=== PATIENT | male | born 1955 | race Caucasian/White ===

== ENCOUNTER 2020-05-31 21:33 | Inpatient (IN) | payer OTHER, SELFPAY ==
--- NOTE | 2020-05-31 21:46 | ECG_ITS ---
Test Reason : TACHYCARDIA Blood Pressure : / mmHG Vent. Rate : 152 BPM Atrial Rate : 152 BPM P-R Int : 122 ms QRS Dur : 078 ms QT Int : 262 ms P-R-T Axes : 085 -74 053 degrees QTc Int : 416 ms Sinus tachycardia with Premature atrial complexes Left axis deviation RSR' or QR pattern in V1 suggests right ventricular conduction delay Pulmonary disease pattern Abnormal ECG When compared with ECG of 04-MAR-2020 01:18, Premature atrial complexes are now Present Heart rate has increased Referred By: José Dupont Electronically Signed By:IMER FLORES MD
--- NOTE | 2020-05-31 21:46 | XR_ITS ---
EXAMINATION: XR CHEST CLINICAL INFORMATION: Shortness of breath COMPARISON: Multiple prior studies. Most recent Chest x-ray 03/04/2020. CT chest 03/21/2020 TECHNIQUE: Frontal view of the chest was obtained. 10:22 PM FINDINGS: Stable chronic changes. Volume loss and scarring of the upper lobes, right greater than left, with elevation of the payal bilateral. The confluent opacity in the right upper lobe and the bullous changes of right lung apex remain similar to prior exam. No acute infiltrate. No pneumothorax or pleural effusion. IMPRESSION: No change since prior CT exam 03/21/2020. Stable chronic changes mostly affecting the upper lobes, right greater than left.
[2020-05-31 21:55] VITALS: BP 122/80; PULSE 149; RESP 20; TEMP 37.4; O2SAT 97; BMI 22.3
--- NOTE | 2020-05-31 21:59 | ED.SOB ---
HPI - SOB/Dyspnea General Chief Complaint: Dyspnea Stated Complaint: DIFF BREATHING Time Seen by Provider: 05/31/20 21:56 Source: patient Mode of arrival: ambulatory History of Present Illness HPI Narrative: patient states for 1-2 days has been experiencing shortness of breath. Denies chest pain. Denies dizziness. Denies near-syncope. Patient states had home took some albuterol inhaler however no relief. Denies fevers or chills. Denies nausea vomiting or diarrhea MD elicited complaint: shortness of breath Pertinent past history: COPD Onset (ago): day(s) (1) Known history of: COPD Related Data Home Medications Medication Instructions Recorded Confirmed albuterol sulfate 1 amp INHALATION QID PRN 06/01/20 06/01/20 aspirin 1 tab PO DAILY 06/01/20 06/01/20 atorvastatin 1 tab PO DAILY 06/01/20 06/01/20 ipratropium bromide [Atrovent HFA] 2 puff PO QID 06/01/20 06/01/20 ipratropium-albuterol 1 amp INHALATION QID 06/01/20 06/01/20 montelukast 1 tab PO BEDTIME 06/01/20 06/01/20 sildenafil [Viagra] 0.5 - 1 tab PO DAILY PRN 06/01/20 06/01/20 Allergies Allergy/AdvReac Type Severity Reaction Status Date / Time morphine [MORPHINE] Allergy Mild VOMITING Unverified 05/09/20 16:06 Review of Systems Constitutional: Comments: Constitutional : No Fever, No Chills ENT/Mouth : No sore throat, No Rhinorrhea, No Swallowing Difficulty Eyes: No Eye Pain, No Swelling, No Redness Cardiovascular : No Chest Pain, positive SOB, No Orthopnea, positive Edema Respiratory : No Cough, No Sputum, No Wheezing, positive dyspnea Gastrointestinal : No Nausea, No Vomiting, No Diarrhea, No abdominal Pain, No Hematochezia, No Melena Genitourinary : No Dysuria, No Urinary Frequency, No Hematuria Musculoskeletal : No joint pain, No Myalgias Skin : No Skin Lesions, No rash Neuro : No Weakness, No Numbness, No Dizziness, No Headache Psych : No Anxiety/Panic, No Depression Heme/Lymph: No Bruising, No Lymphadenopathy Endocrine : No Polyuria, No Polydipsia PMFSH Past Medical History Medical History Asthma COPD (chronic obstructive pulmonary disease) Family History Family History (Updated 05/31/20 @ 22:01 by José Dupont DO) Other Family history non-contributory Social History Social History Advance Directives: No Advance Directives Information Provided: Yes Physical Exam Vital Signs and I&O and Narrative: Vital Signs and I&O: Vital Signs Temp 98.0 F 06/01/20 03:04 Pulse 104 H 06/01/20 03:04 Resp 18 06/01/20 03:04 BP 88/53 L 06/01/20 03:04 Pulse Ox 99 06/01/20 03:04 Intake & Output 05/31/20 05/31/20 06/01/20 06:59 18:59 06:59 Intake Total 4653.61 / 4653.61 Balance 4653.61 / 4653.61 Weight 46.755 kg Intake: Intake, IV Amoun t 4653.61 / 4653.61 levoFLOXacin/D 5W 750 mg In 150 150 / 150 ml @ 100 mls/h r IV ONCE ONE Rx# :[id number] methylPREDNISo lone Sod Succ/PF 100.96 / 100.96 60 mg In 0.9 % Sodium Chloride 100 ml @ 100 m ls/hr IV ONCE ONE Rx#:[id number] 0.9 % Sodium C hloride 1,000 ml 4402.65 / 4402.65 @ 999 mls/hr I VCONT .Q1H1M REPLACED BY [facility] Rx#:[id number] Body Mass Index 22.3 vital signs reviewed Const: Other: Appearance: Alert. Oriented X3. No acute distress. Eyes: Pupils equal, round and reactive to light. ENT: Pharynx normal. Neck: Normal inspection. Neck supple. No lymph nodes noted. No crepitus CVS: Normal heart rate and rhythm. Pulses normal. Normal S1 and S2 Respiratory: moderate respiratory distress. Breath sounds normal. moderate bilateral Wheezing. No rales Abdomen: Soft and nontender. No rigidity. No distention. good BS x4 Skin: Skin warm and dry. Normal skin color. Normal skin turgor. Extremities: No lower extremity edema. Neurovascular intact to all extremities. No Lacerations. No Rash Neuro: Oriented X 3. No motor deficit. No sensory deficit. Moving all extermities. No slurred speech. Course Course Course Narrative: multiple re-evaluations were done while the patient has been in the emergency department. Patient very thin and cachectic appearing started with low blood pressure. At this point patient's blood pressure continued to drop and which was responded to IV fluids. After about 3 L of IV fluid his blood pressure maintained however then dropped again in which decision made to put a central line and start him on IV pressors. 0400 at 04:00 patient at 04:00 I spoke with ICU strip machine operator Dr. Cuellar will admit patient to ICU Procedures Central Line Placement Right IJ: Time Out Performed: Yes Patient Placed on Monitor/Pulse Ox: Yes MD Prep: mask, gown and gloves Central Line Prep: Chlorhexidine scrub Local Anesthetic: lidocaine 2% Amount of anesthesia used (mL): 3 Ultrasound Used for Placement: Yes Central Line Lumen Inserted: triple Post Procedure: sutured in place, good blood return, all ports aspirated, flushed, capped and sterile dressing applied Post Procedure X-Ray: tip of catheter in good position Patient Tolerated Procedure: well Complications: none MDM - SOB/Dyspnea MDM Narrative Medical decision making narrative: 65-year-old male admitted with hypoxia hypertension sepsis and pneumonia right lower lobe. Placed on a IV antibiotics IV fluids and IV pressors Lab Data Result diagrams: 05/31/20 21:49 05/31/20 21:49 Labs: Lab Results 05/31/20 05/31/20 05/31/20 Range/Units 21:49 21:49 21:49 WBC 16.8 H (4.8-10.8) X10*3/uL RBC 4.45 L (4.60-5.80) X10*6/uL Hgb 13.0 L (14.0-18.0) g/dl Hct 40.0 L (42-52) % MCV 89.9 (80-98) fL MCH 29.2 (27.0-33.0) pg MCHC 32.5 (31.0-36.0) g/dl RDW 15.6 (11.0-16.0) % Plt Count 462 H (160-400) X10*3/uL MPV 9.0 L (9.4-12.4) fL Immature Gran % (Auto) 0.2 (0.0-0.4) % Neut % (Auto) 90.9 H (45-73) % Lymph % (Auto) 3.4 L (20-40) % Greenlee % (Auto) 5.0 (2-11) % Eos % (Auto) 0.2 (0-4) % Baso % (Auto) 0.3 (0-2) % Lymph # (Auto) 0.6 L (1.2-4.9) X10*3/uL Greenlee # (Auto) 0.9 (0.1-1.2) X10*3/uL Eos # (Auto) 0.0 (0.0-0.4) X10*3/uL Baso # (Auto) 0.1 (0.0-0.2) X10*3/uL Abs Immat Gran (auto) 0.04 H (0.00-0.03) X10*3/uL Absolute Neuts (auto) 15.3 H (2.0-8.3) X10*3/uL Absolute Nucleated RBC 0.000 (0.0-0.012) X10*3/uL Nucleated RBC % (auto) 0.0 (0.0-0.2) /100WBC Smear Tech's Comments VERIFIED Hold Blue Top SEE NOTE Sodium 128 L (135-145) mmol/L Potassium 4.7 (3.3-5.1) mmol/l Chloride 87 L (96-108) mmol/L Carbon Dioxide 31 H (22-29) mmol/L Anion Gap 15 (12-20) BUN 8 L (9-16) mg/dL Creatinine 0.70 (0.5-1.4) mg/dL Estim Creat Clear Calc 63.2 Estimated GFR > 60 Random Glucose 148 H (60-115) mg/dL Lactic Acid (0.5-2.0) mmol/L Calcium 8.8 (8.4-10.2) mg/dL Total Bilirubin 0.3 (0.0-1.0) mg/dL Direct Bilirubin 0.2 (0.0-0.5) mg/dL AST 20 (5-37) U/L ALT 10 (0-40) U/L Alkaline Phosphatase 114 (39-117) U/L Troponin I High Sens (<3.5-35.0) ng/L B-Natriuretic Peptide (<100) pg/mL Total Protein 7.9 (6.5-8.0) g/dL Albumin 3.8 (3.5-5.0) g/dL Lipase 10 (8-78) U/L 05/31/20 05/31/20 Range/Units 21:49 22:04 WBC (4.8-10.8) X10*3/uL RBC (4.60-5.80) X10*6/uL Hgb (14.0-18.0) g/dl Hct (42-52) % MCV (80-98) fL MCH (27.0-33.0) pg MCHC (31.0-36.0) g/dl RDW (11.0-16.0) % Plt Count (160-400) X10*3/uL MPV (9.4-12.4) fL Immature Gran % (Auto) (0.0-0.4) % Neut % (Auto) (45-73) % Lymph % (Auto) (20-40) % Greenlee % (Auto) (2-11) % Eos % (Auto) (0-4) % Baso % (Auto) (0-2) % Lymph # (Auto) (1.2-4.9) X10*3/uL Greenlee # (Auto) (0.1-1.2) X10*3/uL Eos # (Auto) (0.0-0.4) X10*3/uL Baso # (Auto) (0.0-0.2) X10*3/uL Abs Immat Gran (auto) (0.00-0.03) X10*3/uL Absolute Neuts (auto) (2.0-8.3) X10*3/uL Absolute Nucleated RBC (0.0-0.012) X10*3/uL Nucleated RBC % (auto) (0.0-0.2) /100WBC Smear Tech's Comments Hold Blue Top Sodium (135-145) mmol/L Potassium (3.3-5.1) mmol/l Chloride (96-108) mmol/L Carbon Dioxide (22-29) mmol/L Anion Gap (12-20) BUN (9-16) mg/dL Creatinine (0.5-1.4) mg/dL Estim Creat Clear Calc Estimated GFR Random Glucose (60-115) mg/dL Lactic Acid 0.9 (0.5-2.0) mmol/L Calcium (8.4-10.2) mg/dL Total Bilirubin (0.0-1.0) mg/dL Direct Bilirubin (0.0-0.5) mg/dL AST (5-37) U/L ALT (0-40) U/L Alkaline Phosphatase (39-117) U/L Troponin I High Sens < 3.5 (<3.5-35.0) ng/L B-Natriuretic Peptide 33 (<100) pg/mL Total Protein (6.5-8.0) g/dL Albumin (3.5-5.0) g/dL Lipase (8-78) U/L ECG Data Attestation: I personally reviewed and interpreted this ECG as follows: Interpretation: 152 beats per minute sinus tachycardia right-sided axis. Normal ST- T segments Critical Care Time Critical Care Time Critical Care Time: Yes Total Critical Care Time: 40 Attestation: I would estimate critical time Discharge Plan Discharge Clinical Impression: Sepsis associated hypotension, COPD exacerbation Pneumonia Qualifiers: Pneumonia type: due to unspecified organism Laterality: right Lung location: lower lobe of lung Qualified Code(s): J18.9 - Pneumonia, unspecified organism Patient Disposition: Admitted As Inpatient
[2020-05-31 22:02] LABS: Basophils Absolute Auto 0.1 X10*3/uL (0.0-0.2); Basophils Percent Auto 0.3 % (0-2); Eosinophils Percent Auto 0.2 % (0-4); Imm Gran Abs Auto 0.04 X10*3/uL (0.00-0.03); Imm Gran Pct Auto 0.2 % (0.0-0.4); Lymphocytes Absolute Auto 0.6 X10*3/uL (1.2-4.9); Lymphocytes Percent Auto 3.4 % (20-40); MANUAL DIFF FLAG SCAN; Mean Corpuscular HGB Conc 32.5 g/dl (31.0-36.0); Mean Corpuscular Hemoglobin 29.2 pg (27.0-33.0); Mean Corpuscular Volume 89.9 fL (80-98); Monocytes Absolute Auto 0.9 X10*3/uL (0.1-1.2); Neutrophils Absolute Auto 15.3 X10*3/uL (2.0-8.3); Neutrophils Percent Auto 90.9 % (45-73); Platelet Count 462 X10*3/uL (160-400); Red Blood Count 4.45 X10*6/uL (4.60-5.80); Red Cell Distribution Width 15.6 % (11.0-16.0); SCAN SMEAR FLAG 1; White Blood Count 16.8 X10*3/uL (4.8-10.8)
[2020-05-31] MEDS: Albuterol Sulfate (0.083%) 2.5 MG/3 ML VIAL.NEB 10 MG INHALE (22:06)
[2020-05-31 22:35] LABS: Alanine Aminotransferase 10 U/L (0-40); Albumin Level 3.8 g/dL (3.5-5.0); Alkaline Phosphatase 114 U/L (39-117); Anion Gap 15 (12-20); Aspartate Amino Transferase 20 U/L (5-37); Bilirubin Direct 0.2 mg/dL (0.0-0.5); Bilirubin Total 0.3 mg/dL (0.0-1.0); Blood Urea Nitrogen 8 mg/dL (9-16); Calcium 8.8 mg/dL (8.4-10.2); Carbon Dioxide 31 mmol/L (22-29); Chloride 87 mmol/L (96-108); Creatinine Clr Calc Pharmacy 63.2; Estimated Glomerular Filt Rate > 60; Glucose Random 148 mg/dL (60-115); Lipase 10 U/L (8-78); Potassium 4.7 mmol/l (3.3-5.1); Sodium 128 mmol/L (135-145); Total Protein 7.9 g/dL (6.5-8.0)
[2020-05-31 22:40] LABS: B Type Natriuretic Peptide 33 pg/mL (<100); Troponin-I High Sensitivity < 3.5 ng/L (<3.5-35.0)
[2020-05-31 22:41] LABS: Lactic Acid 0.9 mmol/L (0.5-2.0)
[2020-05-31] MEDS: methylPREDNISolone Sod Succ/PF 125 MG/2 ML VIAL 60 MG IVPUSH (22:52)
[2020-05-31 22:53] LABS: SLIDE REVIEW VERIFIED
[2020-05-31] MEDS: levoFLOXacin/D5W 750 MG/150 ML PIGGYBACK 100 MG IV (22:53)
--- NOTE | 2020-05-31 22:57 | PC.NURSE ---
when patient is to be discharged call neighbor trice to pick him up [phone]
[2020-05-31 22:58] VITALS: BP 110/65; PULSE 137; RESP 18; TEMP 37; O2SAT 94
--- NOTE | 2020-05-31 23:17 | PC.NURSE ---
pt started on iv antibiotic, stating 94% on 3.5 l nc. pt afebrile. bp within normal limits. pt fluids remain running
[2020-05-31 23:32] VITALS: BP 83/47; PULSE 130; RESP 18; O2SAT 96
--- NOTE | 2020-05-31 23:32 | PC.NURSE ---
MD AWARE OF DROP IN BP
[2020-05-31] MEDS: 0.9 % Sodium Chloride 1,000 ML 999 ML IVCONT (23:38)
--- NOTE | 2020-05-31 23:43 | PC.NURSE ---
second iv established fluids running wide open. pt bp 80/50's. will continue to monitor.
[2020-05-31 23:46] VITALS: BP 140/62
[2020-06-01] VITALS (34 sets, daily range): BP systolic 81–198; BP diastolic 53–83; PULSE 85–120; RESP 14–26; TEMP 36.4–37; O2SAT 90–100; BMI 21.2
--- NOTE | 2020-06-01 | XR_ITS ---
EXAMINATION: XR CHEST CLINICAL INFORMATION: Central venous catheter placement COMPARISON: 05/31/2020 and 06/01/2020 TECHNIQUE: Frontal view of the chest was obtained. FINDINGS: Right internal jugular central venous catheter terminates over the mid SVC. Cardiac leads overlie the chest. Redemonstration of the chronic changes in the lungs, particularly at the right apex with bullous changes. Patchy opacity of the right midlung noted as seen on prior CT. No pleural effusion or pneumothorax. The cardiomediastinal silhouette is normal in size with a calcified aorta. IMPRESSION: Right internal jugular central venous catheter terminates over the mid SVC. No pneumothorax.
[2020-06-01] MEDS: 0.9 % Sodium Chloride 1,000 ML 999 ML IVCONT ×2 (00:24)
--- NOTE | 2020-06-01 01:00 | CT_ITS ---
EXAMINATION: CT ANGIOGRAM OF THE CHEST WITH AND WITHOUT CONTRAST (CT PULMONARY ANGIOGRAM FOR PE) CLINICAL INFORMATION: Reason for Exam tachy, sob COMPARISON: 05/31/2020 and 03/21/2020 TECHNIQUE: Prior to contrast administration, noncontrast localization images were obtained. Subsequently, multidetector volumetric imaging was performed from the thoracic inlet to below the diaphragms following the administration of 65 mL Omnipaque 350 intravenous contrast. No contrast reaction reported Sagittal, coronal, and MIP oblique sagittal reformatted images were obtained on the CT workstation, uploaded to PACS, and reviewed. This CT examination was performed using dose optimization techniques as appropriate, variously including the following: *Automated exposure control *Adjustment of mA and/or kV according to patient size (this includes techniques or standardized protocols for targeted exams where dose is matched to indication/reason for exam; i.e. extremities or head) *Use of iterative reconstruction technique Total exam dose-length product 196 mGy-cm FINDINGS: QUALITY OF STUDY/CONTRAST BOLUS: Satisfactory. PULMONARY ARTERIES: No central or segmental pulmonary emboli. THORACIC AORTA: No aneurysm or dissection. LUNG: The central airways are patent. Similar distortion of the right mainstem bronchus. Similar appearance of the lungs to the prior study with prominent cavitation at the right upper lung. Moderate centrilobular emphysema with paraseptal emphysema. Areas of pleural thickening. Right upper lobe consolidation with air bronchograms and bronchiectasis again noted. There is a new consolidation peripherally in the right lower lobe. This has a somewhat nodular appearance measuring 2.4 cm. Adjacent smaller nodular opacities are noted. This finding is new. There are separate right lower lobe nodules measuring 0.9 cm and 0.8 cm on series 6 image 45. These are unchanged. Within a paraseptal lead along the left major fissure there is internal opacification, similar to prior. PLEURA: No pleural effusion. No pneumothorax. Thickening at the apices. MEDIASTINUM: Normal heart size. No pericardial effusion. No mediastinal lymphadenopathy. Cannot exclude right hilar lymphadenopathy. The appearance of the right hilum is unchanged.. No evidence of septal bowing or right heart strain. CHEST WALL/AXILLA: No axillary or internal mammary lymphadenopathy. OSSEOUS STRUCTURES: No acute or suspicious osseous abnormality. UPPER ABDOMEN: Cyst at the upper pole of the left kidney. No reflux of contrast into the hepatic veins to suggest elevated right heart pressures. IMPRESSION: 1. No pulmonary embolism. 2. There are chronic changes in the lungs, as seen on the prior CT. Prominent cystic/bullous changes at the right apex with associated pleural thickening. 3. There is new right lower lobe consolidation superimposed on the chronic changes and emphysema. This is suggestive of pneumonia, with adjacent infectious/inflammatory nodules. Three-month follow-up should be considered to exclude underlying new pulmonary nodules. VTE: negative
--- NOTE | 2020-06-01 01:11 | PC.NURSE ---
PT URINATED APPROX 500 CC OF URINE
[2020-06-01] MEDS: iohexoL 350 MG/ML 100 ML INFUS..BTL 60 ML IV (02:27)
--- NOTE | 2020-06-01 03:07 | PC.NURSE ---
dr patricia at bedside. pt has recieved 4.5 liters of ns with no change in bp. plan for central line.
--- NOTE | 2020-06-01 03:57 | PC.NURSE ---
pt arrives moody x 3 with equal and non labored rr. pt skin wnl. pt ambulates without assistance. pt speaking in clear and full sentences. pt lined and labbed. medicated per emar with fluids and toradol. pending labs. swabbed for covid.
--- NOTE | 2020-06-01 04:02 | PC.NURSE ---
spoke to patients s/o regarding admission.
--- NOTE | 2020-06-01 04:18 | PC.NURSE ---
levophed started at min dose rate 0.05 mcg/kg/min. pt map is 68. dr patricia still wants started. vitals documented. infusing through central line
--- NOTE | 2020-06-01 04:20 | PM.CCHP ---
History of Present Illness Date of Service: 06/01/20 <SHANNEN Cedeno - Last Filed: 06/01/20 05:49> Chief Complaint: shortness of breath <SHANNEN Cedeno - Last Filed: 06/01/20 05:49> Patient is a 65-year-old male with a past medical history of COPD, latent TB, HTN and HLD who presents to the emergency department after 3 days of shortness of breath. upon evaluation in the ED, patient was found to be hypotensive and tachycardic, was put on 2L NC. CTA was negative for PE, a chest x-ray revealed right lower lobe pneumonia. patient was given 4 L of IV fluids which lowers high rate a little bit but patient required pressors to manage the hypotension. A TLC was placed by ED doc. labs remarkable for white blood cell count of 16.8, hyponatremic at 128, hypochloremic at 87, lactic acid was 0.9, troponin was negative and BNP was negative. pt does not speak [place]i and no interpretor available Case discussed with Dr Cuellar, he agreed with assessment and plan. <SHANNEN Cedeno - Last Filed: 06/01/20 05:49> Review of Systems Constitutional: Comments: Unable to obtain ROS, pt does not speak [place]i and no interpretor available. Defer to ED doc ROS <SHANNEN Cedeno - Last Filed: 06/01/20 05:49> PMFSH Past Medical History Medical History: Medical History Asthma COPD (chronic obstructive pulmonary disease) Latent tuberculosis Mycobacteria, atypical <SHANNEN Cedeno - Last Filed: 06/01/20 05:49> Family History Family History: Family History Other Family history non-contributory <SHANNEN Cedeno - Last Filed: 06/01/20 05:49> Social History Social History: Social History (Updated 06/01/20 @ 04:32 by SHANNEN Cedeno) Household Members: Spouse Housing: Apartment Do you presently have visiting nurse or other home services: Yes ([facility]) Alcohol intake: never Smoking Status: Former smoker Smoked in Last 30 Days: Yes Smoking Quit Date: 05/25/20 Patient Interested in Nicotine Replacement: No Patient Given Instructions on How to Stop Smoking: No Date Education Initiated: 06/01/20 Second Hand Smoke Exposure: No Use of substances other than those prescribed or required for medical reasons: Yes Substance Use Type: Crack/Cocaine Substance Use Frequency: Weekly Last Used Substance: Weeks (ago) Currently Displaying Signs/Symptoms of Drug Intoxication Withdrawal: No Any prior treatment program specific to substance use: No Have you been hit, kicked, punched, or otherwise hurt by someone within the past year? If so, by whom?: No Do you feel safe in your current relationship?: No Is there a partner from a previous relationship who is making you feel unsafe now?: No Are you made to feel afraid or neglected: No Advance Directives: No Advance Directives Information Provided: Yes Do you have thoughts of harming others: None Do you have a plan to hurt others: No Plan Recently lost weight without trying: Unsure <SHANNEN Cedeno - Last Filed: 06/01/20 05:49> Meds Allergies/Adverse reactions: Allergies Allergy/AdvReac Type Severity Reaction Status Date / Time morphine [MORPHINE] Allergy Mild VOMITING Unverified 05/09/20 16:06 <SHANNEN Cedeno - Last Filed: 06/01/20 05:49> Home medications: Home Medications Medication Instructions Recorded Confirmed Type albuterol sulfate 1 amp INHALATION QID PRN 06/01/20 06/01/20 History aspirin 1 tab PO DAILY 06/01/20 06/01/20 History atorvastatin 1 tab PO DAILY 06/01/20 06/01/20 History ipratropium bromide [Atrovent HFA] 2 puff PO QID 06/01/20 06/01/20 History ipratropium-albuterol 1 amp INHALATION QID 06/01/20 06/01/20 History montelukast 1 tab PO BEDTIME 06/01/20 06/01/20 History sildenafil [Viagra] 0.5 - 1 tab PO DAILY PRN 06/01/20 06/01/20 History <SHANNEN Cedeno - Last Filed: 06/01/20 05:49> Physical Exam Vital Signs and I&O and Narrative: Vital Signs and I&O: Vital Signs Temp Pulse Resp BP Pulse Ox 06/01/20 04:20 98.6 F 99 18 102/62 97 06/01/20 03:04 98.0 F 104 H 18 88/53 L 99 06/01/20 02:29 98.0 F 109 H 16 91/53 L 99 06/01/20 02:00 108 H 22 H 100/60 99 06/01/20 01:11 118 H 140/64 H 06/01/20 00:41 113 H 23 H 94/58 L 98 06/01/20 00:07 98.2 F 120 H 18 81/53 L 99 05/31/20 23:46 140/62 H 05/31/20 23:32 130 H 18 83/47 L 96 05/31/20 22:58 98.6 F 137 H 18 110/65 94 05/31/20 21:55 99.3 F 149 H 20 122/80 97 Intake & Output 05/31/20 05/31/20 06/01/20 06:59 18:59 06:59 Intake Total 4653.61 / 4653.61 Balance 4653.61 / 4653.61 Weight 46.755 kg Intake: Intake, IV Amoun t 4653.61 / 4653.61 levoFLOXacin/D 5W 750 mg In 150 150 / 150 ml @ 100 mls/h r IV ONCE ONE Rx# :[id number] methylPREDNISo lone Sod Succ/PF 100.96 / 100.96 60 mg In 0.9 % Sodium Chloride 100 ml @ 100 m ls/hr IV ONCE ONE Rx#:[id number] 0.9 % Sodium C hloride 1,000 ml 4402.65 / 4402.65 @ 999 mls/hr I VCONT .Q1H1M ALFONSO Rx#:[id number] Body Mass Index 22.3 <SHANNEN Cedeno - Last Filed: 06/01/20 05:49> Vital Signs Temp Pulse Resp BP Pulse Ox 06/01/20 04:20 98.6 F 99 18 102/62 97 06/01/20 03:04 98.0 F 104 H 18 88/53 L 99 06/01/20 02:29 98.0 F 109 H 16 91/53 L 99 06/01/20 02:00 108 H 22 H 100/60 99 06/01/20 01:11 118 H 140/64 H 06/01/20 00:41 113 H 23 H 94/58 L 98 06/01/20 00:07 98.2 F 120 H 18 81/53 L 99 05/31/20 23:46 140/62 H 05/31/20 23:32 130 H 18 83/47 L 96 05/31/20 22:58 98.6 F 137 H 18 110/65 94 05/31/20 21:55 99.3 F 149 H 20 122/80 97 <Teresita Potter PA - Last Filed: 06/01/20 05:49> Const: General: cooperative <SHANNEN Cedeno - Last Filed: 06/01/20 05:49> Nutritional Appearance: cachectic <SHANNEN Cedeno - Last Filed: 06/01/20 05:49> Orientation/consciousness: patient oriented x3 <SHANNEN Cedeno - Last Filed: 06/01/20 05:49> HENMT: Head: Yes normal to inspection <SHANNEN Cedeno - Last Filed: 06/01/20 05:49> Eyes: General: appearance normal, both eyes and all related structures <SHANNEN Cedeno - Last Filed: 06/01/20 05:49> Neck: Neck: Yes normal visual inspection, Yes full ROM and Yes supple <SHANNEN Cedeno - Last Filed: 06/01/20 05:49> Chest: Chest palpation & inspection: normal inspection of the chest <SHANNEN Cedeno - Last Filed: 06/01/20 05:49> Resp: Effort & Inspection: normal respiratory effort and no use of accessory muscles <SHANNEN Cedeno - Last Filed: 06/01/20 05:49> Auscultation: wheezes expiratory wheezes, inspiratory wheezes and throughout and diminished lung sounds <Teresita Potter PA - Last Filed: 06/01/20 05:49> Cardio: Rate: tachycardic <SHANNEN Cedeno - Last Filed: 06/01/20 05:49> Rhythm: regular rhythm <Teresita Potter [facility] Last Filed: 06/01/20 05:49> Heart sounds: S1 normal heart sound present and S2 normal heart sound present <Teresita Potter [facility] Last Filed: 06/01/20 05:49> GI: Inspection: Yes normal to inspection <Teresita Byrdforeign [facility] Last Filed: 06/01/20 05:49> Palpation (GI): Soft to palpation <Teresita Byrdforeign [facility] Last Filed: 06/01/20 05:49> Neuro: General: patient oriented x3 <Teresita Keysshorty [facility] Last Filed: 06/01/20 05:49> Extrem: Right lower extremity: no edema <Teresita Keysshorty [facility] Last Filed: 06/01/20 05:49> Left lower extremity: no edema <Teresita Keysshorty [facility] Last Filed: 06/01/20 05:49> Psych: Appearance: disheveled <Teresita Keyspallavijoniforeign [facility] Last Filed: 06/01/20 05:49> Results Labs Labs: Laboratory Tests 05/31/20 05/31/20 05/31/20 21:49 21:49 21:49 WBC 16.8 H RBC 4.45 L Hgb 13.0 L Hct 40.0 L MCV 89.9 MCH 29.2 MCHC 32.5 RDW 15.6 Plt Count 462 H MPV 9.0 L Immature Gran % (Auto) 0.2 Neut % (Auto) 90.9 H Lymph % (Auto) 3.4 L [place] % (Auto) 5.0 Eos % (Auto) 0.2 Baso % (Auto) 0.3 Lymph # (Auto) 0.6 L [place] # (Auto) 0.9 Eos # (Auto) 0.0 Baso # (Auto) 0.1 Abs Immat Gran (auto) 0.04 H Absolute Neuts (auto) 15.3 H Absolute Nucleated RBC 0.000 Nucleated RBC % (auto) 0.0 Smear Tech's Comments VERIFIED Hold Blue Top SEE NOTE Sodium 128 L Potassium 4.7 Chloride 87 L Carbon Dioxide 31 H Anion Gap 15 BUN 8 L Creatinine 0.70 Estim Creat Clear Calc 63.2 Estimated GFR > 60 Random Glucose 148 H Lactic Acid Calcium 8.8 Total Bilirubin 0.3 Direct Bilirubin 0.2 AST 20 ALT 10 Alkaline Phosphatase 114 Troponin I High Sens B-Natriuretic Peptide Total Protein 7.9 Albumin 3.8 Lipase 10 05/31/20 05/31/20 21:49 22:04 WBC RBC Hgb Hct MCV MCH MCHC RDW Plt Count MPV Immature Gran % (Auto) Neut % (Auto) Lymph % (Auto) [place] % (Auto) Eos % (Auto) Baso % (Auto) Lymph # (Auto) [place] # (Auto) Eos # (Auto) Baso # (Auto) Abs Immat Gran (auto) Absolute Neuts (auto) Absolute Nucleated RBC Nucleated RBC % (auto) Smear Tech's Comments Hold Blue Top Sodium Potassium Chloride Carbon Dioxide Anion Gap BUN Creatinine Estim Creat Clear Calc Estimated GFR Random Glucose Lactic Acid 0.9 Calcium Total Bilirubin Direct Bilirubin AST ALT Alkaline Phosphatase Troponin I High Sens < 3.5 B-Natriuretic Peptide 33 Total Protein Albumin Lipase <SHANNEN Cedeno - Last Filed: 06/01/20 05:49> Assessment and Plan (1) Pneumonia: Qualifiers: Laterality: right Lung location: lower lobe of lung Pneumonia type: due to unspecified organism Qualified Code(s): J18.9 - Pneumonia, unspecified organism <SHANNEN Cedeno - Last Filed: 06/01/20 05:49> Status: Acute <SHANNEN Cedeno Last Filed: 06/01/20 05:49> patient given 1 dose of Levaquin in the ED, will need to continue abx as of 06/02 <SHANNEN Cedeno Last Filed: 06/01/20 05:49> (2) Sepsis associated hypotension: Status: Acute <SHANNEN Cedeno Last Filed: 06/01/20 05:49> Continue to titate Levophed <SHANNEN Cedeno Last Filed: 06/01/20 05:49> (3) COPD exacerbation: Status: Acute <SHANNEN Cedeno Last Filed: 06/01/20 05:49> Continue O2, nebulizers and steroids <SHANNEN Ceedno Last Filed: 06/01/20 05:49>
--- NOTE | 2020-06-01 04:51 | PC.NURSE ---
per dr harshad high
--- NOTE | 2020-06-01 05:30 | PC.NURSE ---
pt aBLE TO USE BED SIDE URINAL WITHOUT ASSISTANCE. TOTAL AMOUNT VOIDED SINCE ARRIVAL IS 1500 CC. EDUCATED PT WITH TELEPHONE BINDING MACHINE OPERATOR THAT WE WILL NEED TO INSERT LAW PER ICU REQUEST. PT REFUSED. SWABBED FOR COVID WITH RAPID SWAB
[2020-06-01 05:44] LABS: Basophils Percent Auto 0.1 % (0-2); Hematocrit 33.3 % (42-52); Hemoglobin 10.7 g/dl (14.0-18.0); Imm Gran Abs Auto 0.14 X10*3/uL (0.00-0.03); Imm Gran Pct Auto 0.5 % (0.0-0.4); Lymphocytes Absolute Auto 0.1 X10*3/uL (1.2-4.9); Lymphocytes Percent Auto 0.5 % (20-40); MANUAL DIFF FLAG SCAN; Mean Corpuscular HGB Conc 32.1 g/dl (31.0-36.0); Mean Corpuscular Hemoglobin 29.8 pg (27.0-33.0); Mean Corpuscular Volume 92.8 fL (80-98); Monocytes Absolute Auto 0.2 X10*3/uL (0.1-1.2); Monocytes Percent Auto 0.6 % (2-11); Neutrophils Absolute Auto 25.3 X10*3/uL (2.0-8.3); Neutrophils Percent Auto 98.3 % (45-73); Platelet Count 418 X10*3/uL (160-400); Red Blood Count 3.59 X10*6/uL (4.60-5.80); Red Cell Distribution Width 15.9 % (11.0-16.0); SCAN SMEAR FLAG 1; White Blood Count 25.8 X10*3/uL (4.8-10.8)
[2020-06-01 06:25] LABS: Base Excess VBG -0.2 mmol/L; HCO3 VBG 26 mmol/L; Oxygen Saturation VBG 99.4 %; PCO2 VBG 48 mmhg; PO2 VBG 196 mmhg; pH VBG 7.35 (7.32-7.43)
[2020-06-01 07:04] LABS: Anion Gap 12 (12-20); Carbon Dioxide 25 mmol/L (22-29); Chloride 102 mmol/L (96-108); Creatinine Clr Calc Pharmacy 73.8; Estimated Glomerular Filt Rate > 60; Glucose Random 178 mg/dL (60-115); Magnesium 1.9 mg/dL (1.6-2.6); Phosphorus 3.2 mg/dL (2.7-4.5); Potassium 4.6 mmol/l (3.3-5.1); Sodium 134 mmol/L (135-145)
--- NOTE | 2020-06-01 07:05 | PC.NURSE ---
report given to icu
[2020-06-01 07:27] LABS: Blood Urea Nitrogen 6 mg/dL (9-16); Calcium 7.4 mg/dL (8.4-10.2)
[2020-06-01 07:44] LABS: SARS COV2 PCR INHOUSE NEGATIVE (Negative)
--- NOTE | 2020-06-01 07:53 | PC.NURSE ---
TRANSFERRED TO ICU
[2020-06-01] MEDS: 0.9 % Sodium Chloride Flush 3 ML SYRINGE IVFLUSH ×3 (08:17→23:47)
[2020-06-01] MEDS: LORazepam 1 MG TABLET 2 MG PO (10:51)
[2020-06-01] MEDS: Piperacillin Sodium/Tazobactam 3.375 GM in 0.9 % Sodium Chloride 50 ML IV ×3 (10:52→23:10)
[2020-06-01] MEDS: Enoxaparin Sodium 40 MG/0.4 ML SYRINGE SUBCUT (10:52)
[2020-06-01] MEDS: Famotidine 20 MG TABLET PO ×2 (10:52→22:01)
--- NOTE | 2020-06-01 14:23 | PC.NURSE ---
Patient admitted to ICU at approx 08:00 am. Upon admission to ICU, patient A&O, no c/o SOB, on Levophed at 0.05 mcg/kg/min. Patient is [place] speaking only, admission assessment completed with use of hook loader. Patient stating that he does not want to stay in hospital. Patient educated on reason for admission to ICU and need for vasopressor to maintain BP. Patient agreed to stay but has stated multiple times that he will only stay for 1 or 2 more days, then he is going to leave AMA. MD aware. Patient started on ativan by MD for concern over alcohol withdrawal. Patient vague about alcohol usage and stated that his last alcoholic beverage was a week ago on wednesday/wednesday night. Patient also stated that he occasionally uses cocaine and last usage was 1 month ago. Initial dose of Ativan 2 mg PO given per MD order, patient lethargic afterwards, responding to touch or name but falling back to sleep. MD aware of patient response to Ativan. 1400 dose held due to patient lethargy. Levophed titrated off at 1400, BP stable. Will report to oncoming RN.
--- NOTE | 2020-06-01 14:31 | P.PNCC_ITS ---
Critical Care Event Note Summary Code activated: Yes Narrative: This case had a high probability of a clinically significant, sudden, or life threatening deterioration of this patient's condition which required my full and direct attention, intervention and personal management. 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 she and with his history of alcohol and because understanding that he is HIV negative and Tyro id negative the patchy infiltrate that is noted in the right lower lobe could be consistent with an aspiration picture or even hematogenous Maribell borne disease which opens up a large differential but most commonly will treat him for enteral bacterial disease who with a without anaerobic contribution and see whether not he responds and just maintain his pulmonary treatments as well and I am going to have him on a CIWA protocol and cover him with Ativan because of the the alcohol history so for now his antibiotics will include Levaquin and Zosyn and failing to see a response or even if we were to see a deterioration consideration for bronchoscopy Critical Care Time (minutes): 30
[2020-06-01] MEDS: LORazepam 1 MG TABLET PO (22:00)
[2020-06-01] MEDS: Montelukast Sodium 10 MG TABLET PO (22:01)
[2020-06-01] MEDS: Albuterol/Iprat 2.5/0.5MG 3 ML AMPUL.NEB INHALE (22:15)
[2020-06-02] VITALS (26 sets, daily range): BP systolic 82–155; BP diastolic 43–86; PULSE 83–119; RESP 12–31; TEMP 35.8–36.8; O2SAT 85–100; BMI 21.2
[2020-06-02] MEDS: LORazepam 1 MG TABLET PO ×2 (02:18→05:39)
[2020-06-02] MEDS: Piperacillin Sodium/Tazobactam 3.375 GM in 0.9 % Sodium Chloride 50 ML IV ×4 (04:16→22:06)
--- NOTE | 2020-06-02 05:04 | PC.NURSE ---
care assumed 23;15...awake..alert...oriented per tile fitter...drinking fluids w/o difficulty...voided 350ml in urinal...nsr/s.tach hr 90's-100's...sbp initially 100's..sbp 80's at hs....levophed drip resumed 0.1 mcg/kg/min with improved bp...patient drowsy 2am...to continue scheduled po ativan per icu project product manager...swallow ativan/h20 w/o difficulty then sleeping
[2020-06-02 06:03] LABS: MANUAL DIFF FLAG NO
[2020-06-02 06:12] LABS: Basophils Percent Auto 0.1 % (0-2); Hematocrit 34.6 % (42-52); Hemoglobin 10.7 g/dl (14.0-18.0); Imm Gran Pct Auto 0.5 % (0.0-0.4); Lymphocytes Percent Auto 4.9 % (20-40); Mean Corpuscular HGB Conc 30.9 g/dl (31.0-36.0); Mean Corpuscular Hemoglobin 28.8 pg (27.0-33.0); Mean Corpuscular Volume 93.3 fL (80-98); Mean Platelet Volume 9.3 fL (9.4-12.4); Monocytes Absolute Auto 1.4 X10*3/uL (0.1-1.2); Monocytes Percent Auto 6.8 % (2-11); Neutrophils Absolute Auto 18.2 X10*3/uL (2.0-8.3); Neutrophils Percent Auto 87.7 % (45-73); Platelet Count 456 X10*3/uL (160-400); Red Blood Count 3.71 X10*6/uL (4.60-5.80); Red Cell Distribution Width 16.1 % (11.0-16.0); White Blood Count 20.7 X10*3/uL (4.8-10.8)
[2020-06-02 06:19] LABS: HCO3 VBG 32 mmol/L; PCO2 VBG 70 mmhg; PO2 VBG 64 mmhg; pH VBG 7.29 (7.32-7.43)
[2020-06-02 06:20] LABS: Oxygen Saturation VBG 90.8 %
[2020-06-02 06:52] LABS: Anion Gap 9 (12-20); Blood Urea Nitrogen 6 mg/dL (9-16); Calcium 8.2 mg/dL (8.4-10.2); Carbon Dioxide 37 mmol/L (22-29); Chloride 96 mmol/L (96-108); Estimated Glomerular Filt Rate > 60; Glucose Random 178 mg/dL (60-115); Magnesium 2.4 mg/dL (1.6-2.6); Phosphorus 3.2 mg/dL (2.7-4.5); Potassium 3.9 mmol/l (3.3-5.1); Sodium 138 mmol/L (135-145)
[2020-06-02] MEDS: 0.9 % Sodium Chloride Flush 3 ML SYRINGE IVFLUSH ×3 (08:37→23:55)
[2020-06-02] MEDS: Lactated Ringers 1,000 ML 100 ML IVCONT ×2 (08:44→22:07)
[2020-06-02] MEDS: vancomycin HCL 1,000 MG in 0.9 % Sodium Chloride 250 ML 180 MG IV (08:48)
[2020-06-02] MEDS: Enoxaparin Sodium 40 MG/0.4 ML SYRINGE SUBCUT (08:48)
--- NOTE | 2020-06-02 13:32 | MHC.CM.PN ---
Patient currently in ICU and confused. Spoke with patient's sig other via telephone at [phone] with the help of [place] telephone mirror installer. Patient lives with sig other, ambulates independently and had no services prior to coming to hospital. Patient will typically walk to doctor's appointments. PCP verified. IMM explained and left at patient's bedside. Physical therapy eval may be needed for home safety when medically stable. May need help with transport at discharge. Continue to monitor for d/c needs.
[2020-06-02] MEDS: Albuterol/Iprat 2.5/0.5MG 3 ML AMPUL.NEB INHALE ×2 (13:56→20:39)
--- NOTE | 2020-06-02 16:00 | PM.CCPN ---
Subjective Subjective Date of Service: 06/02/20 Interval History: 65-year-old with chronic continuous tobacco abuse and COPD and by history chronic continuous alcoholism presenting with increasing dyspnea and what appears to be new infiltrate in the right lower lobe but an old previously treated cavitary lesion representing my co bacterial disease which was atypical and previously treated not currently. Could not rule out potential for an aspiration issue and patient was initially hypotensive and has been intermittently requiring pressor support as well as having been volume repleted and cultured and then started in addition on vancomycin because 1/2 blood cultures are growing Gram-positive cocci and of course vancomycin probably can be stopped if it is Staph epidermidis and a probable contaminant but if MRSA will continue with the vancomycin as above if he does not respond clinically there is consideration for repeat bronchoscopy he was placed on a CIWA protocol with an initial dose of Ativan and has been very lethargic and did develop despite preservation of his oxygen saturation a acute hypercarbic respiratory insufficiency and therefore hypoventilating so we reduced the dose of Ativan and made it strictly p.r.n. at this point and will repeat his VBG to confirm improvement in his pCO2 Physical Exam Vital Signs: Vital Signs: Vital Signs Temp Pulse Resp BP Pulse Ox 06/02/20 14:00 100 24 H 123/76 100 06/02/20 13:00 101 H 22 H 131/77 99 06/02/20 12:00 98.0 F 88 12 83/43 L 100 06/02/20 11:00 86 21 H 109/57 L 99 06/02/20 10:00 91 25 H 92/55 L 100 06/02/20 09:00 94 21 H 108/64 98 06/02/20 08:53 100/59 L 06/02/20 08:00 97.8 F 97 25 H 118/66 100 06/02/20 07:00 88 20 116/65 100 06/02/20 05:53 96 24 H 110/60 97 06/02/20 04:56 96 20 119/71 93 06/02/20 04:00 96.7 F L 88 22 H 113/70 94 06/02/20 03:00 102 H 22 H 126/78 93 06/02/20 02:00 94 20 112/68 94 06/02/20 01:00 98 116/70 97 06/02/20 00:33 94 20 96/66 95 06/02/20 00:00 96.4 F L 90 22 H 82/50 L 85 L 06/01/20 23:00 106 H 20 198/60 H 94 06/01/20 22:00 105 H 06/01/20 21:00 105 H 25 H 106/69 95 06/01/20 20:00 97.5 F 106 H 24 H 128/74 97 06/01/20 19:00 97.5 F 110 H 19 121/69 93 06/01/20 17:59 94 25 H 101/69 94 06/01/20 17:00 98 25 H 112/64 94 Body Mass Index 21.2 Const: Other: very asthenic in his appearance weighing only 44 kilos arousable but difficult and uncooperative in a from the get go always insisting on leaving neurological is nonfocal and pupils are equal and reactive to light skin is normal well perfused with no acrocyanosis and no clubbing no decubiti I and no rash good bilateral carotid upstrokes and no bruits and no neck vein distension and normal sinus rhythm chest without use of accessory muscles and no respiratory distress and absent breath sounds but no adventitious sounds cardiac exam with normal S1 and normal S2 no gallops or murmurs and his echo basically shows normal LV function and no primary valve or pericardial disease abdomen benign with no bruits no tenderness and no organomegaly Objective Data Labs CBC & Chem 7: 06/02/20 05:50 06/02/20 05:50 Labs: Laboratory Results - last 24 hr 06/02/20 06/02/20 06/02/20 05:50 05:50 05:50 WBC 20.7 H RBC 3.71 L Hgb 10.7 L Hct 34.6 L MCV 93.3 MCH 28.8 MCHC 30.9 L RDW 16.1 H Plt Count 456 H MPV 9.3 L Immature Gran % (Auto) 0.5 H Neut % (Auto) 87.7 H Lymph % (Auto) 4.9 L [place] % (Auto) 6.8 Eos % (Auto) 0.0 Baso % (Auto) 0.1 Lymph # (Auto) 1.0 L [place] # (Auto) 1.4 H Eos # (Auto) 0.0 Baso # (Auto) 0.0 Abs Immat Gran (auto) 0.10 H Absolute Neuts (auto) 18.2 H Absolute Nucleated RBC 0.000 Nucleated RBC % (auto) 0.0 VBG pH 7.29 L VBG pCO2 70 VBG Oxygen Liters/Min TNP VBG pO2 64 VBG HCO3 32 VBG O2 Saturation 90.8 VBG Base Excess 4.0 Sodium 138 Potassium 3.9 Chloride 96 Carbon Dioxide 37 H Anion Gap 9 L BUN 6 L Creatinine 0.59 Estim Creat Clear Calc 75.0 Estimated GFR > 60 Random Glucose 178 H Calcium 8.2 L Phosphorus 3.2 Magnesium 2.4 Microbiology Microbiology Results: Microbiology 05/31/20 22:04 Blood - Venous Blood Culture - Preliminary Coagulase-neg Staphyloccocus 05/31/20 21:49 Blood - Venous Blood Culture - Preliminary No growth after 24 hours. Progress Note: A&P Assessment and plan (1) Pneumonia: Status: Acute (2) Sepsis associated hypotension: Status: Acute (3) COPD exacerbation: Status: Acute Assessment and Plan: for now we will continue with vancomycin and Zosyn follow his progress and repeat his VBG as we have withdrawn his Ativan but still observing on the CIWA protocol Time Spent With Patient Time: Total time spent is greater than 50% in coordination of care (as documented) at patient's floor/unit and/or counseling patient: Total time spent with greater than 50% in coordination of care (as documented) at patient's floor/unit and/or counseling patient:: 25
[2020-06-02] MEDS: LORazepam 2 MG/ML VIAL 0.5 MG IVPUSH (16:30)
[2020-06-02 16:52] LABS: Base Excess VBG 9.2 mmol/L; HCO3 VBG 37 mmol/L; Oxygen Saturation VBG 79.7 %; PCO2 VBG 73 mmhg; PO2 VBG 49 mmhg; pH VBG 7.33 (7.32-7.43)
[2020-06-02 16:53] LABS: Blood Gas Serial # 5396
[2020-06-02] MEDS: Montelukast Sodium 10 MG TABLET PO (21:03)
[2020-06-02] MEDS: Famotidine 20 MG TABLET PO (21:03)
[2020-06-02] MEDS: vancomycin HCL 500 MG in 0.9 % Sodium Chloride 100 ML 110 MG IV (21:04)
[2020-06-03] VITALS (19 sets, daily range): BP systolic 92–136; BP diastolic 57–77; PULSE 68–116; RESP 18–26; TEMP 36.1–36.9; O2SAT 92–99; BMI 21.7
[2020-06-03] MEDS: Piperacillin Sodium/Tazobactam 3.375 GM in 0.9 % Sodium Chloride 50 ML IV ×4 (04:37→21:30)
[2020-06-03 06:08] LABS: pH VBG 7.36 (7.32-7.43)
[2020-06-03 06:09] LABS: Base Excess VBG 15.3 mmol/L; HCO3 VBG 44 mmol/L; Oxygen Saturation VBG 85.8 %; PCO2 VBG 81 mmhg; PO2 VBG 52 mmhg
[2020-06-03 06:10] LABS: MANUAL DIFF FLAG NO
[2020-06-03 06:17] LABS: Basophils Percent Auto 0.4 % (0-2); Eosinophils Absolute Auto 0.3 X10*3/uL (0.0-0.4); Hemoglobin 10.7 g/dl (14.0-18.0); Imm Gran Abs Auto 0.01 X10*3/uL (0.00-0.03); Imm Gran Pct Auto 0.1 % (0.0-0.4); Lymphocytes Absolute Auto 1.4 X10*3/uL (1.2-4.9); Lymphocytes Percent Auto 15.5 % (20-40); Mean Corpuscular HGB Conc 30.6 g/dl (31.0-36.0); Mean Corpuscular Hemoglobin 28.8 pg (27.0-33.0); Mean Corpuscular Volume 94.1 fL (80-98); Mean Platelet Volume 9.3 fL (9.4-12.4); Monocytes Absolute Auto 1.3 X10*3/uL (0.1-1.2); Platelet Count 457 X10*3/uL (160-400); Red Blood Count 3.72 X10*6/uL (4.60-5.80); Red Cell Distribution Width 15.9 % (11.0-16.0)
[2020-06-03 06:55] LABS: Anion Gap 8 (12-20); Blood Urea Nitrogen 4 mg/dL (9-16); Calcium 8.2 mg/dL (8.4-10.2); Carbon Dioxide 44 mmol/L (22-29); Chloride 91 mmol/L (96-108); Creatinine Clr Calc Pharmacy 80.5; Estimated Glomerular Filt Rate > 60; Glucose Random 80 mg/dL (60-115); Magnesium 2.1 mg/dL (1.6-2.6); Phosphorus 3.1 mg/dL (2.7-4.5); Sodium 139 mmol/L (135-145)
[2020-06-03] MEDS: Albuterol/Iprat 2.5/0.5MG 3 ML AMPUL.NEB INHALE ×3 (07:17→19:12)
[2020-06-03] MEDS: 0.9 % Sodium Chloride Flush 3 ML SYRINGE IVFLUSH ×3 (07:59→21:32)
[2020-06-03] MEDS: Lactated Ringers 1,000 ML 100 ML IVCONT (07:59)
[2020-06-03] MEDS: Midodrine HCl 5 MG TABLET PO ×3 (10:32→21:31)
[2020-06-03] MEDS: Enoxaparin Sodium 40 MG/0.4 ML SYRINGE SUBCUT (10:32)
--- NOTE | 2020-06-03 13:10 | PM.CCPN ---
Subjective Subjective Date of Service: 06/03/20 Interval History: 65-year-old gentleman with underlying history of COPD, SYED intolerant of treatment, bronchiectasis with multiple exacerbations, hypertension admitted on 06/01/2020 with pneumonic exacerbation of his underlying bronchiectasis requiring intensive care unit level of monitoring. Physical Exam Vital Signs: Vital Signs: Vital Signs Temp Pulse Resp BP Pulse Ox 06/03/20 12:00 105 H 20 123/73 92 06/03/20 11:00 109 H 22 H 111/77 93 06/03/20 10:32 116 H 112/66 06/03/20 10:00 110 H 23 H 104/65 93 06/03/20 09:00 102 H 20 107/67 92 06/03/20 08:00 106 H 21 H 96 06/03/20 07:00 109 H 125/77 94 06/03/20 06:16 113 H 24 H 115/73 95 06/03/20 05:16 105 H 25 H 107/68 95 06/03/20 04:15 98.5 F 108 H 24 H 106/69 96 06/03/20 03:06 106 H 22 H 95/69 96 06/03/20 02:00 102 H 26 H 92/57 L 96 06/03/20 01:00 106 H 26 H 101/68 98 06/03/20 00:04 98.2 F 111 H 25 H 108/66 96 06/02/20 23:03 108 H 25 H 107/61 99 06/02/20 22:12 111 H 25 H 116/67 95 06/02/20 21:16 119 H 24 H 111/76 92 06/02/20 20:13 98.2 F 110 H 23 H 109/61 98 06/02/20 19:05 117 H 25 H 121/79 98 06/02/20 18:00 107 H 31 H 111/71 98 06/02/20 17:00 83 26 H 155/86 H 98 06/02/20 16:00 96.8 F 114 H 29 H 115/74 89 L 06/02/20 15:00 111 H 26 H 115/74 89 L 06/02/20 14:00 100 24 H 123/76 100 Body Mass Index 21.7 Const: General: no acute distress, alert and awake Nutritional Appearance: other ( Thin) Eyes: Sclerae: sclerae normal EOM: EOMs intact bilaterally Neck: Neck: Yes no lymphadenopathy, Yes trachea midline and Yes supple Resp: Effort & Inspection: normal respiratory effort and no respiratory distress Auscultation: clear to auscultation bilaterally Cardio: Rate: regular rate Rhythm: regular rhythm Heart sounds: no gallops, no murmurs and no rubs GI: Palpation (GI): Soft to palpation and Other GI palpation findings present ( Nontender) Auscultation: normal bowel sounds Extrem: General: Yes no pedal edema, No clubbing and No cyanosis Objective Data Labs CBC & Chem 7: 06/03/20 05:30 06/03/20 05:30 Labs: Laboratory Results - last 24 hr 06/02/20 06/02/20 06/03/20 05:50 16:34 05:30 WBC 9.0 RBC 3.72 L Hgb 10.7 L Hct 35.0 L MCV 94.1 MCH 28.8 MCHC 30.6 L RDW 15.9 Plt Count 457 H MPV 9.3 L Immature Gran % (Auto) 0.1 Neut % (Auto) 67.0 Lymph % (Auto) 15.5 L [place] % (Auto) 14.0 H Eos % (Auto) 3.0 Baso % (Auto) 0.4 Lymph # (Auto) 1.4 [place] # (Auto) 1.3 H Eos # (Auto) 0.3 Baso # (Auto) 0.0 Abs Immat Gran (auto) 0.01 Absolute Neuts (auto) 6.0 Absolute Nucleated RBC 0.000 Nucleated RBC % (auto) 0.0 VBG pH 7.33 VBG pCO2 73 VBG Oxygen Liters/Min TNP TNP VBG pO2 49 VBG HCO3 37 VBG O2 Saturation 79.7 VBG Base Excess 9.2 Sodium Potassium Chloride Carbon Dioxide Anion Gap BUN Creatinine Estim Creat Clear Calc Estimated GFR Random Glucose Calcium Phosphorus Magnesium 06/03/20 06/03/20 05:30 05:35 WBC RBC Hgb Hct MCV MCH MCHC RDW Plt Count MPV Immature Gran % (Auto) Neut % (Auto) Lymph % (Auto) [place] % (Auto) Eos % (Auto) Baso % (Auto) Lymph # (Auto) [place] # (Auto) Eos # (Auto) Baso # (Auto) Abs Immat Gran (auto) Absolute Neuts (auto) Absolute Nucleated RBC Nucleated RBC % (auto) VBG pH 7.36 VBG pCO2 81 VBG Oxygen Liters/Min TNP VBG pO2 52 VBG HCO3 44 VBG O2 Saturation 85.8 VBG Base Excess 15.3 Sodium 139 Potassium 4.0 Chloride 91 L Carbon Dioxide 44 H* Anion Gap 8 L BUN 4 L Creatinine 0.55 Estim Creat Clear Calc 80.5 Estimated GFR > 60 Random Glucose 80 D Calcium 8.2 L Phosphorus 3.1 Magnesium 2.1 Microbiology Microbiology Results: Microbiology 05/31/20 21:49 Blood - Venous Blood Culture - Preliminary No growth after 48 hours. 05/31/20 22:04 Blood - Venous Blood Culture - Preliminary Coagulase-neg Staphyloccocus Progress Note: A&P Assessment and plan (1) COPD exacerbation: Status: Acute (2) Pneumonia: Status: Acute (3) Bronchiectasis with (acute) exacerbation: Status: Acute (4) Acute respiratory failure with hypoxia: Status: Acute Assessment and Plan: Assessment: 65-year-old gentleman with underlying history of SYED and bronchiectasis admitted with pneumonic exacerbation of his underlying bronchiectasis Plan: Neuro: No acute issues. Cardiac: No acute issues. Pulmonary: acute hypoxic respiratory failure secondary to pneumonic exacerbation of underlying bronchiectasis on the background of chronic SYED. Improving with antibiotic therapy. Continue to titrate off supplemental oxygen as tolerated. Renal: No acute issues. Endo: No acute issues. GI: No acute issues. ID: Community-acquired pneumonia worsening underlying bronchiectasis. Patient to complete 7 day antibiotic regimen. Heme/Onc: No acute issues. Psych: No acute issues. Miscellaneous: No acute issues. Prophylaxis: Lovenox Diet: regular Critical care time spent: 45 minutes Time Spent With Patient Time: Total time spent is greater than 50% in coordination of care (as documented) at patient's floor/unit and/or counseling patient: Total time spent with greater than 50% in coordination of care (as documented) at patient's floor/unit and/or counseling patient:: 0 Critical Care Time 45 minutes
--- NOTE | 2020-06-03 13:29 | MHC.CM.PN ---
Patient remains in ICU. Patient is from home without services. May need physical therapy eval for home safety when medically stable. Continue to monitor for d/c needs.
[2020-06-04] VITALS (10 sets, daily range): BP systolic 80–131; BP diastolic 49–80; PULSE 97–119; RESP 18–20; TEMP 36–36.8; O2SAT 91–99; BMI 23.9
[2020-06-04] MEDS: Piperacillin Sodium/Tazobactam 3.375 GM in 0.9 % Sodium Chloride 50 ML IV ×4 (04:11→22:35)
[2020-06-04] MEDS: Albuterol/Iprat 2.5/0.5MG 3 ML AMPUL.NEB INHALE ×3 (06:31→20:06)
[2020-06-04] MEDS: Tamsulosin HCL 0.4 MG CAPSULE PO (09:00)
[2020-06-04] MEDS: Midodrine HCl 5 MG TABLET PO ×3 (09:00→22:34)
[2020-06-04] MEDS: 0.9 % Sodium Chloride Flush 3 ML SYRINGE IVFLUSH ×3 (09:05→22:36)
[2020-06-04] MEDS: Enoxaparin Sodium 40 MG/0.4 ML SYRINGE SUBCUT (10:49)
[2020-06-04] MEDS: 0.9 % Sodium Chloride 1,000 ML 999 ML IV (12:14)
[2020-06-04 13:45] LABS: Lactic Acid 1.3 mmol/L (0.5-2.0)
--- NOTE | 2020-06-04 17:59 | PM.IMPN ---
Subjective Subjective Date of Service: 06/04/20 Interval History: Stepped down from ICU yesterday. Breathing is stable, weaned off O2. BP low today, responded to 30 cc/kg bolus No fever Constitutional Constitutional: Denies fever(s) Cardiovascular Cardiovascular: Denies chest pain and Denies dyspnea Respiratory Respiratory: Reports cough and Denies dyspnea Gastrointestinal Gastrointestinal: Denies abdominal pain Physical Exam Vital Signs: Vital Signs: Vital Signs Temp Pulse Resp BP Pulse Ox 06/04/20 15:43 104 H 110/60 06/04/20 15:35 98.2 F 104 H 20 110/60 95 06/04/20 13:31 100/58 L 06/04/20 11:31 97.4 F 114 H 20 80/58 L 97 06/04/20 09:00 119 H 96/59 L 06/04/20 08:00 96.8 F 119 H 20 96/59 L 92 06/04/20 04:00 97 F 103 H 18 107/49 L 93 06/03/20 23:28 98 F 68 18 114/60 98 06/03/20 21:31 107 H 136/66 06/03/20 19:06 97 F 107 H 18 136/66 99 Body Mass Index 23.9 Const: General: no acute distress Neck: Neck: Yes no lymphadenopathy Chest: Chest palpation & inspection: normal inspection of the chest Resp: Auscultation: diminished lung sounds Cardio: Rate: regular rate Rhythm: regular rhythm GI: Inspection: Yes normal to inspection Palpation (GI): nontender Neuro: General: no focal motor deficits Objective Data Current Medications Generic Name Dose Route Start Last Admin Trade Name Isaiasq PRN Reason Stop Dose Admin Albuterol/Ipratropium 3 ml 06/02/20 08:00 06/04/20 13:15 Albuterol/Iprat 2.5/0.5mg 3 Ml Ampul.Neb INHALE 3 ml RQ6H WHILE AWAKE ALFONSO Administration Enoxaparin Sodium 40 mg 06/01/20 10:00 06/04/20 10:49 Enoxaparin Sodium 40 Mg/0.4 Ml Syringe SUBCUT 40 mg Q24H ALFONSO Administration Piperacillin Sod/Tazobactam 50 mls @ 100 mls/hr 06/01/20 10:00 06/04/20 16:17 Sod 3.375 gm/ Sodium Chloride IV Infused Q6H ALFONSO Infusion Sodium Chloride 1,000 mls @ 0 mls/hr 06/04/20 12:00 06/04/20 13:14 Ns IV Infused .Q0M ALFONSO Infusion Wide Open Midodrine 5 mg 06/03/20 09:30 06/04/20 15:43 Midodrine Hcl 5 Mg Tablet PO 5 mg TID ALFONSO Administration Nicotine 21 mg 06/03/20 09:30 06/04/20 09:05 Nicotine 21 Mg Patch.Td24 TRANSDERMA Not Given DAILY ALFONSO Sodium Chloride 3 ml 06/01/20 08:00 06/04/20 15:43 0.9 % Sodium Chloride Flush 3 Ml Syringe IVFLUSH 3 ml QSHIFT ALFONSO Administration Tamsulosin HCl 0.4 mg 06/04/20 09:00 06/04/20 09:00 Tamsulosin Hcl 0.4 Mg Capsule PO 0.4 mg DAILY ALFONSO Administration Labs CBC & Chem 7: 06/03/20 05:30 06/03/20 05:30 Labs: Laboratory Results - last 24 hr 06/04/20 12:56 Lactic Acid 1.3 Microbiology Microbiology Results: Microbiology 05/31/20 21:49 Blood - Venous Blood Culture - Preliminary No growth after 48 hours. 05/31/20 22:04 Blood - Venous Blood Culture - Preliminary Coagulase-neg Staphyloccocus Progress Note: A&P (1) Acute respiratory failure with hypoxia: Status: Acute (2) Bronchiectasis with (acute) exacerbation: Status: Acute (3) Pneumonia: Status: Acute (4) Sepsis associated hypotension: Status: Acute (5) COPD exacerbation: Status: Acute Assessment and Plan: hospital d#4 65yo M with chronic SYED + bronchiectasis admitted to ICU for CAP/worsening bronchiectasis with sepsis-associated hypotension, was on pressors, stepped down to IMC 06/03/20 # hypotension - fluid-responsive, resolved - on midodrine # CAP # bronchiectasis - pip/josette d#11/27 - BCx 1/2 CoNS likely contaminant - nebulized bronchodilators # tobacco abuse - NRT # VTE ppx - LMWH # dispo - potentially home tomorrow to complete ABX with amox/clav, f/u with his banquet cook who happens to be the residential pest control technician who saw him yesterday
[2020-06-04] MEDS: Acetaminophen 325 MG TABLET 650 MG PO (22:34)
[2020-06-05 03:22] VITALS: BP 101/65; PULSE 97; RESP 18; TEMP 36.2; O2SAT 95
[2020-06-05] MEDS: Piperacillin Sodium/Tazobactam 3.375 GM in 0.9 % Sodium Chloride 50 ML IV ×2 (03:56→10:18)
[2020-06-05 06:00] VITALS: BMI 25.6
[2020-06-05 06:23] LABS: MANUAL DIFF FLAG NO
[2020-06-05 06:47] LABS: Basophils Percent Auto 0.6 % (0-2); Eosinophils Absolute Auto 0.5 X10*3/uL (0.0-0.4); Eosinophils Percent Auto 7.5 % (0-4); Hematocrit 36.1 % (42-52); Hemoglobin 11.2 g/dl (14.0-18.0); Imm Gran Abs Auto 0.01 X10*3/uL (0.00-0.03); Imm Gran Pct Auto 0.2 % (0.0-0.4); Lymphocytes Absolute Auto 1.3 X10*3/uL (1.2-4.9); Lymphocytes Percent Auto 19.7 % (20-40); Mean Corpuscular Hemoglobin 28.6 pg (27.0-33.0); Mean Corpuscular Volume 92.3 fL (80-98); Mean Platelet Volume 9.5 fL (9.4-12.4); Monocytes Absolute Auto 1.2 X10*3/uL (0.1-1.2); Monocytes Percent Auto 18.2 % (2-11); Neutrophils Absolute Auto 3.5 X10*3/uL (2.0-8.3); Neutrophils Percent Auto 53.8 % (45-73); Platelet Count 439 X10*3/uL (160-400); Red Blood Count 3.91 X10*6/uL (4.60-5.80); Red Cell Distribution Width 15.9 % (11.0-16.0); White Blood Count 6.5 X10*3/uL (4.8-10.8)
[2020-06-05 07:11] LABS: Anion Gap 9 (12-20); Blood Urea Nitrogen 7 mg/dL (9-16); Calcium 8.3 mg/dL (8.4-10.2); Carbon Dioxide 39 mmol/L (22-29); Chloride 95 mmol/L (96-108); Creatinine Clr Calc Pharmacy 78.5; Estimated Glomerular Filt Rate > 60; Glucose Random 90 mg/dL (60-115); Potassium 4.1 mmol/l (3.3-5.1); Sodium 139 mmol/L (135-145)
[2020-06-05 07:15] LABS: Procalcitonin 0.05 ng/mL
[2020-06-05 08:00] VITALS: BP 100/59; PULSE 94; RESP 18; TEMP 36.3; O2SAT 96
[2020-06-05] MEDS: Albuterol/Iprat 2.5/0.5MG 3 ML AMPUL.NEB INHALE (08:09)
[2020-06-05 08:36] VITALS: BP 100/59; PULSE 94
[2020-06-05] MEDS: 0.9 % Sodium Chloride Flush 3 ML SYRINGE IVFLUSH (08:36)
[2020-06-05] MEDS: Tamsulosin HCL 0.4 MG CAPSULE PO (08:36)
[2020-06-05] MEDS: Midodrine HCl 5 MG TABLET PO (08:36)
[2020-06-05] MEDS: Enoxaparin Sodium 40 MG/0.4 ML SYRINGE SUBCUT (10:16)
--- NOTE | 2020-06-05 11:16 | PC.NURSE ---
Pt told MD that he wanted to leave AMA. Gave pt more time to calm down, pt continued to say he wanted to leave AMA. [employer] , Called intepreter so that pt fully understood what leaving AMA meant. Pt understood, Ivs removed, monitor removed. pt signed ama paper
--- NOTE | 2020-06-05 13:50 | P.DS_ITS ---
DS: Providers Provider Date of admission: 06/01/20 04:08 Primary care physician: Eliza Lorenzana NP DS: Diagnosis Discharge Diagnosis (1) Acute respiratory failure with hypoxia: Status: Acute Problem details: resolved (2) Bronchiectasis with (acute) exacerbation: Status: Acute Problem details: left against medical advice; sent prescription for amoxicillin/clavulanate 875/125 mg q12h x 2 days (3) Pneumonia: Status: Acute Problem details: left against medical advice; sent prescription for amoxicillin/clavulanate 875/125 mg q12h x 2 days (4) Sepsis associated hypotension: Status: Acute Problem details: left against medical advice despite counseling on risks DS: Summary Hospital Course Hospital Course: From the history and physical by the admitting medical coding technician Teresita Potter, 06/01/20: Patient is a 65-year-old male with a past medical history of COPD, latent TB, HTN and HLD who presents to the emergency department after 3 days of shortness of breath. upon evaluation in the ED, patient was found to be hypotensive and tachycardic, was put on 2L NC. CTA was negative for PE, a chest x-ray revealed right lower lobe pneumonia. patient was given 4 L of IV fluids which lowers high rate a little bit but patient required pressors to manage the hypotension. A TLC was placed by ED doc. labs remarkable for white blood cell count of 16.8, hyponatremic at 128, hypochloremic at 87, lactic acid was 0.9, troponin was negative and BNP was negative. The patient was admitted to the ICU on a norepinephrine infusion. He was weaned off of this and antibiotic coverage narrowed to piperacillin/tazobactam. He was stepped down to the IMC on 06/03/20 by the medical coding technician who happens to be his outpatient corner cutter machine operator as well. He was weaned off of oxygen. On 06/04/20 he did have an episode of asymptomatic hypotension that resolved with IV fluid administration. On 06/05/20, he quite suddenly insisted on leaving the hospital. I strongly urged him to remain given the recent episode of hypotension but despite counseling on the risks of critical illness and , he chose to sign out of the hospital against medical advice. I did send a prescription for 2 more days of antibiotic therapy with amoxcillin/clavulanate. Time Spent with Patient Time attestation: Total time spent providing and/or coordinating discharge services: Physical Exam Vital Signs: Vital Signs: Vital Signs Temp Pulse Resp BP Pulse Ox 06/05/20 08:36 94 100/59 L 06/05/20 08:00 97.3 F 94 18 100/59 L 96 06/05/20 03:22 97.2 F 97 18 101/65 95 06/04/20 23:35 97.9 F 104 H 20 131/80 91 L 06/04/20 23:32 97.7 F 97 19 104/56 L 99 06/04/20 20:31 97.4 F 114 H 18 100/67 98 06/04/20 15:43 104 H 110/60 06/04/20 15:35 98.2 F 104 H 20 110/60 95 Body Mass Index 25.6 Const: General: No acute distress Chest: Chest palpation & inspection: normal inspection of the chest Resp: Auscultation: clear to auscultation bilaterally and diminished lung sounds Cardio: Rate: regular rate Rhythm: regular rhythm Extrem: General: Yes no clubbing, cyanosis or edema DS: Data Data Completed and Pending Labs on day of discharge: Labs from last 24 hours 06/05/20 06/05/20 06/05/20 05:31 05:31 05:31 WBC 6.5 RBC 3.91 L Hgb 11.2 L Hct 36.1 L MCV 92.3 MCH 28.6 MCHC 31.0 RDW 15.9 Plt Count 439 H MPV 9.5 Immature Gran % (Auto) 0.2 Neut % (Auto) 53.8 Lymph % (Auto) 19.7 L [place] % (Auto) 18.2 H Eos % (Auto) 7.5 H Baso % (Auto) 0.6 Lymph # (Auto) 1.3 [place] # (Auto) 1.2 Eos # (Auto) 0.5 H Baso # (Auto) 0.0 Abs Immat Gran (auto) 0.01 Absolute Neuts (auto) 3.5 Absolute Nucleated RBC 0.000 Nucleated RBC % (auto) 0.0 Sodium 139 Potassium 4.1 Chloride 95 L Carbon Dioxide 39 H Anion Gap 9 L BUN 7 L D Creatinine 0.62 Estim Creat Clear Calc 78.5 Estimated GFR > 60 Random Glucose 90 Calcium 8.3 L Procalcitonin 0.05 Preliminary micro results at discharge 05/31/20 21:49 Blood Culture - Preliminary Blood - Venous No growth after 48 hours. 05/31/20 22:04 Blood Culture - Preliminary Blood - Venous Coagulase-neg Staphyloccocus Discharge Plan Discharge Patient Disposition: Left Against Medical Advice Referrals: Eliza Lorenzana NP [Primary Care Provider] - Discharge Medications: New amoxicillin-pot clavulanate 875-125 mg tablet 1 tab PO Q12H Qty: 4 RF: 0 Continued atorvastatin 20 mg tablet 1 tab PO DAILY RF: 0 ipratropium-albuterol 0.5 mg-3 mg(2.5 mg base)/3 mL solution for nebulization 1 amp inhalation QID RF: 0 albuterol sulfate 2.5 mg /3 mL (0.083 %) solution for nebulization 1 amp inhalation QID PRN (Reason: Wheezing) RF: 0 aspirin 81 mg tablet,delayed release (DR/EC) 1 tab PO DAILY RF: 0 sildenafil [Viagra] 100 mg tablet 0.5 - 1 tab PO DAILY PRN (Reason: Erectile Dysfunction) RF: 0 montelukast 10 mg tablet 1 tab PO BEDTIME RF: 0 Atrovent HFA 17 mcg/actuation HFA aerosol inhaler 2 puff PO QID RF: 0 Discharge Orders: Discharge Order (Routine); Ordered 06/05/20 Ordered By: Cora Etienne Discharge Date/Time: 06/05/20 11:34 Care Plan Goals: return to hospital Health Concerns: return to hospital Plan of Treatment: return to hospital in meanwhile, take amoxicillin/clavulanate 875/125 mg every 12 hours for 2 days
== END 2020-06-05 11:34 | disposition left against medical advice (07) | DRG 871 ==
LOC: HO.ED 06-01 03:42 → HO.ICU 06-01 05:37 → HO.IMC 06-03 14:38
PROVIDERS: Physician Assistant; Admitting Provider Internal Medicine Cardiovascular Disease; Emergency Provider Emergency Medicine; PCP Nurse Practitioner Family; Visit Provider Family Medicine
DX: A41.9 Sepsis, unspecified organism (principal); J18.9 Pneumonia, unspecified organism; R64 Cachexia; J47.0 Bronchiectasis with acute lower respiratory infection; J47.1 Bronchiectasis with (acute) exacerbation; Z20.828 Contact with and (suspected) exposure to other viral communicable diseases; Z68.22 Body mass index [BMI] 22.0-22.9, adult; Z86.15 Personal history of latent tuberculosis infection; E78.5 Hyperlipidemia, unspecified; I95.9 Hypotension, unspecified; F10.20 Alcohol dependence, uncomplicated; Z88.5 Allergy status to narcotic agent; Z79.82 Long term (current) use of aspirin; Z79.899 Other long term (current) drug therapy
CPT/HCPCS: 36415; 71045; 71275; 80048; 80076; 82803; 83605; 83690; 83735; 83880; 84100; 84145; 84484; 85025; 87040; 87147; 87635; 93005; 94640; 96361; 96365; 96367; 96375; 96376; 97161; 99285; 99291; C1758; J1650; J1956; J2060; J2930

== ENCOUNTER 2020-07-16 13:14 | Outpatient (REF) | payer OTHER, SELFPAY ==
--- NOTE | 2020-07-16 13:18 | CT_ITS ---
EXAMINATION: CT CHEST WITHOUT CONTRAST CLINICAL INFORMATION: Follow-up abnormal chest CT scan COMPARISON: Previous chest x-rays most recent 06/01/[address] scans most recent 06/01/2020 TECHNIQUE: Multidetector volumetric CT imaging of the chest was done. Axial MIP volume rendering provided. Sagittal and coronal reformatted images were obtained. This CT examination was performed using dose optimization techniques as appropriate, variously including the following: *Automated exposure control *Adjustment of mA and/or kV according to patient size (this includes techniques or standardized protocols for targeted exams where dose is matched to indication/reason for exam; i.e. extremities or head) *Use of iterative reconstruction technique DLP: 114 mGy-cm FINDINGS: UNIVERSAL WINDING MACHINE OPERATOR: LUNGS: There is evidence of emphysema. There is biapical pleural and parenchymal scarring. There is volume loss to the right upper lobe. There is a thick-walled cavity formation is seen at the right lung apex involving the right upper lobe and superior segment of the right lower lobe. There are areas of nodular wall thickening or cavitary solid components that does not appear appreciably changed. There is some surrounding upper lobe consolidation and traction bronchiectasis. There is distortion of the right mainstem bronchus and generalized bronchial megaly. This is unchanged. There are similar changes in the left upper lobe with left upper lobe volume loss, thick-walled cavity formation. There is a dependent nodule in the left upper lobe cavity that measures 7 mm for example axial image 159 series 4. Comparison with 06/01/2020 exam the cavity appears smaller and the wall of the thicker than seen on most recent exam. The solid 7 mm component probably is unchanged seen on axial image 141 series 8 on the previous exam. There are scattered small calcified and noncalcified pulmonary nodules. There are clustered right middle lobe peribronchial nodules suggestive of tree-in-bud appearance or airways disease. There is interval decrease in size in the previously identified new cavitary nodule in the right lower lobe. This measures 1.2 x 2 cm axial image 317 series 4 compared to 1.7 x 2.7 cm on previous May 2020 exam. There are multiple more inferior right lower lobe nodules that appear to represent areas of bronchiectasis and mucus plugging. For example axial image 305 series 4, 338 and 342 series 4, 395 series 4, 4 3 series 4 and 442 series 4. There are new nodular opacities in the superior segment of the left lower lobe measuring 0.8 x 1.2 cm and in the more inferior left lower lobe measuring 0.6 x 0.8 cm axial image 339 series 4. Attention on follow-up is recommended. MEDIASTINUM: There is abnormal soft tissue seen surrounding the central right upper lobe bronchus for example axial image 16 series 2 that is unchanged. There are small mediastinal lymph nodes that appear unchanged. The heart does not appear enlarged. There is severe coronary artery calcification. There is no pericardial effusion. PLEURA: There is no pleural effusion. No pleural mass or thickening. AXILLA: No lymphadenopathy. UPPER ABDOMEN: There is a small calcification in the right lobe of the liver. There is a 3 cm left renal cyst. OSSEOUS STRUCTURES: There is slight loss of height of superior endplate of the T7 vertebral body questionable for mild compression fracture versus Schmorl's node. CT/CT chest wo con IMPRESSION: Emphysema. Severe bilateral upper lobe volume loss and bronchiectasis and cavity formation, right greater than left. This also involves the superior segment of the right lower lobe. On the right this does not appear appreciably changed. On the left, the right cavity formation appears decreased, and the wall appears thicker. There is interval decrease in the new nodular opacity in the right lower lobe on most recent exam 06/01/2020. The majority of the nodular opacities in the right lower lobe. Represent of focal bronchiectasis and mucus plugging. There are 2 new nodular opacities in the left lower lobe. Attention on follow-up recommended. Severe coronary artery calcification.
== END 2020-07-16 13:15 | disposition home or self-care (01) ==
LOC: HO.CT 13:14
PROVIDERS: PCP Nurse Practitioner Family; Visit Provider Internal Medicine Pulmonary Disease
DX: R93.89 Abnormal findings on diagnostic imaging of other specified body structures (principal)
CPT/HCPCS: 71250

== ENCOUNTER 2020-08-05 10:57 | Inpatient (IN) | payer OTHER, SELFPAY ==
[2020-08-05] VITALS (8 sets, daily range): BP systolic 105–132; BP diastolic 60–81; PULSE 107–128; RESP 19–24; TEMP 36.4–36.6; O2SAT 88–98; BMI 16.8
--- NOTE | 2020-08-05 11:00 | ED.SOB ---
HPI - SOB/Dyspnea General Chief Complaint: Dyspnea Stated Complaint: RESP DISTRESS FOR 3 DAYS Time Seen by Provider: 08/05/20 11:00 Source: patient, EMS, old records reviewed and surveyor mine Mode of arrival: EMS Limitations: no limitations History of Present Illness HPI Narrative: 65 yo male with COPD and SYED on home O2 hx of bronchiectasis comes in with 3 days of worsening breathing/cough ad feels his chest is very tight - reports similar episodes in past not responding to his nebs or oxygen, given duoneb with EMS as well as 125mg solumedrol Pertinent past history: COPD and other (SYED, bronchiectasis) Onset (ago): day(s) (3) Timing: constant Severity: similar to previous episodes Exacerbating factors: exertion and coughing Relieving factors: oxygen and bronchodilators Known history of: COPD and recurrent pneumonia Associated symptoms: chest pain, cough, wheezing and sputum production Treatment prior to arrival: oxygen, bronchodilator and other (IV steroids 125mg solumedrol) Related Data Home Medications Medication Instructions Recorded Confirmed Atrovent HFA 2 puff PO QID 06/01/20 08/05/20 albuterol sulfate 1 amp INHALATION QID PRN 06/01/20 08/05/20 aspirin 1 tab PO DAILY 06/01/20 08/05/20 atorvastatin 1 tab PO DAILY 06/01/20 08/05/20 montelukast 1 tab PO BEDTIME 06/01/20 08/05/20 sildenafil [Viagra] 0.5 - 1 tab PO DAILY PRN 06/01/20 08/05/20 bupropion HCl 1 tab PO BID 08/05/20 08/05/20 ferrous sulfate 325 mg PO DAILY 08/05/20 08/05/20 fluticasone furoate-vilanterol 1 puff PO DAILY 08/05/20 08/05/20 [Breo Ellipta] fluticasone propionate 2 spray INTRANASAL DAILY PRN 08/05/20 08/05/20 ketoconazole 1 appl TOPICAL 2XW 08/05/20 08/05/20 multivitamin 1 tab PO DAILY 08/05/20 08/05/20 nicotine (polacrilex) 1 reese PO Q4H 08/05/20 08/05/20 sennosides [senna] 1 - 2 tab PO DAILY PRN 08/05/20 08/05/20 Previous Rx's Medication Instructions Recorded ipratropium 0.5 mg-albuterol 3 mg 3 ml INHALATION QID 30 Days #360 ml 06/28/20 (2.5 mg base)/3 mL nebulization soln Allergies Allergy/AdvReac Type Severity Reaction Status Date / Time morphine [MORPHINE] Allergy Mild VOMITING Verified 06/02/20 11:30 Review of Systems Review of Systems: Constitutional : No Fever, No Chills ENT/Mouth : No sore throat, No Rhinorrhea, No Swallowing Difficulty Eyes: No Eye Pain, No Swelling, No Redness Cardiovascular : No Chest Pain, positive SOB, No Orthopnea, no Edema Respiratory : pos Cough, pos Sputum, No Wheezing, positive dyspnea Gastrointestinal : No Nausea, No Vomiting, No Diarrhea, No abdominal Pain, No Hematochezia, No Melena Genitourinary : No Dysuria, No Urinary Frequency, No Hematuria Musculoskeletal : No joint pain, No Myalgias Skin : No Skin Lesions, No rash Neuro : No Weakness, No Numbness, No Dizziness, No Headache Psych : No Anxiety/Panic, No Depression Heme/Lymph: No Bruising, No Lymphadenopathy Endocrine : No Polyuria, No Polydipsia All other systems reviewed and are negative [facility] Past Medical History Attestation statement: The following information was validated with the patient. Medical History Asthma COPD (chronic obstructive pulmonary disease) COPD exacerbation Latent tuberculosis Mycobacteria, atypical Family History Family History Other Family history non-contributory Social History Social History Household Members: Spouse Housing: Apartment Alcohol intake: never Smoking Status: Former smoker Second Hand Smoke Exposure: No Substance Use Type: Crack/Cocaine Advance Directives: No Advance Directives Information Provided: No service: No Current occupational status: retired Physical Exam Vital Signs: Vital Signs: Last Vital Signs Temp 97.6 F 08/05/20 11:12 Pulse 117 H 08/05/20 12:34 Resp 21 H 08/05/20 12:34 BP 109/71 08/05/20 12:34 Pulse Ox 95 08/05/20 12:34 Body Mass Index 16.8 Appearance: Alert. Oriented X3. mild acute distress. Eyes: Pupils equal, round and reactive to light. ENT: Pharynx normal. Neck: Normal inspection. Neck supple. CVS: tachycardic heart rate and rhythm. Pulses normal. Respiratory: mild respiratory distress tachypnea and retractions. Breath sounds decreased with rhonchi and wheezes noted, cough with sputum production evident thick yellow Abdomen: Soft and non-tender. Skin: Skin warm and dry. Normal skin color. Normal skin turgor. Extremities: No lower extremity edema. No calf ttp Neuro: Oriented X 3. No motor deficit. No sensory deficit. Course Course Course Narrative: given history of respiratory failure, his presentation on arrival failed response to nebs and O2 at home he was started on antibiotics and will admit for further workup and care of COPD MDM - SOB/Dyspnea MDM Narrative Medical decision making narrative: 65 yo male with COPD on home O2, recurrent pneumonia, SYED, bronchiectasis here with cough/dyspnea with sputum production x 3 days - at this time will need labs, cultures, repeat neb (xopenex) as she is tachycard as well as empiric IV antibiotics, he was already given steroids by EMS, anticipate admission Lab Data Result diagrams: 08/05/20 11:40 08/05/20 11:40 Labs: Lab Results 08/05/20 08/05/20 08/05/20 Range/Units 11:40 11:40 11:40 WBC 12.7 H (4.8-10.8) X10*3/uL RBC 4.22 L (4.60-5.80) X10*6/uL Hgb 11.9 L (14.0-18.0) g/dl Hct 37.3 L (42-52) % MCV 88.4 (80-98) fL MCH 28.2 (27.0-33.0) pg MCHC 31.9 (31.0-36.0) g/dl RDW 15.1 (11.0-16.0) % Plt Count 580 H D (160-400) X10*3/uL MPV 8.9 L (9.4-12.4) fL Immature Gran % (Auto) 0.2 (0.0-0.4) % Neut % (Auto) 80.0 H (45-73) % Lymph % (Auto) 7.3 L (20-40) % Woods % (Auto) 11.3 H (2-11) % Eos % (Auto) 0.6 (0-4) % Baso % (Auto) 0.6 (0-2) % Lymph # (Auto) 0.9 L (1.2-4.9) X10*3/uL Woods # (Auto) 1.4 H (0.1-1.2) X10*3/uL Eos # (Auto) 0.1 (0.0-0.4) X10*3/uL Baso # (Auto) 0.1 (0.0-0.2) X10*3/uL Abs Immat Gran (auto) 0.03 (0.00-0.03) X10*3/uL Absolute Neuts (auto) 10.2 H (2.0-8.3) X10*3/uL Absolute Nucleated RBC 0.000 (0.0-0.012) X10*3/uL Nucleated RBC % (auto) 0.0 (0.0-0.2) /100WBC PT 13.0 (10.8-13.0) SEC INR 1.1 (0.9-1.1) APTT 36.0 (24.1-38.0) SEC VBG pH (7.32-7.43) VBG pCO2 mmhg VBG pO2 mmhg VBG HCO3 mmol/L VBG O2 Saturation % VBG Base Excess mmol/L Sodium (135-145) mmol/L Potassium (3.3-5.1) mmol/l Chloride (96-108) mmol/L Carbon Dioxide (22-29) mmol/L Anion Gap (12-20) BUN (9-16) mg/dL Creatinine (0.5-1.4) mg/dL Estim Creat Clear Calc Estimated GFR Random Glucose (60-115) mg/dL Lactic Acid (0.5-2.0) mmol/L Calcium (8.4-10.2) mg/dL Magnesium (1.6-2.6) mg/dL Total Bilirubin (0.0-1.0) mg/dL Direct Bilirubin (0.0-0.5) mg/dL AST (5-37) U/L ALT (0-40) U/L Alkaline Phosphatase (39-117) U/L Lactate Dehydrogenase (118-273) U/L Troponin I High Sens (<3.5-35.0) ng/L B-Natriuretic Peptide 51 (<100) pg/mL Total Protein (6.5-8.0) g/dL Albumin (3.5-5.0) g/dL Lipase (8-78) U/L Coronavirus (PCR) (Negative) Influenza Type A (PCR) (Negative) Influenza Type B (PCR) (Negative) RSV RNA Qual (PCR) (Negative) 08/05/20 08/05/20 08/05/20 Range/Units 11:40 11:41 11:41 WBC (4.8-10.8) X10*3/uL RBC (4.60-5.80) X10*6/uL Hgb (14.0-18.0) g/dl Hct (42-52) % MCV (80-98) fL MCH (27.0-33.0) pg MCHC (31.0-36.0) g/dl RDW (11.0-16.0) % Plt Count (160-400) X10*3/uL MPV (9.4-12.4) fL Immature Gran % (Auto) (0.0-0.4) % Neut % (Auto) (45-73) % Lymph % (Auto) (20-40) % Woods % (Auto) (2-11) % Eos % (Auto) (0-4) % Baso % (Auto) (0-2) % Lymph # (Auto) (1.2-4.9) X10*3/uL Woods # (Auto) (0.1-1.2) X10*3/uL Eos # (Auto) (0.0-0.4) X10*3/uL Baso # (Auto) (0.0-0.2) X10*3/uL Abs Immat Gran (auto) (0.00-0.03) X10*3/uL Absolute Neuts (auto) (2.0-8.3) X10*3/uL Absolute Nucleated RBC (0.0-0.012) X10*3/uL Nucleated RBC % (auto) (0.0-0.2) /100WBC PT (10.8-13.0) SEC INR (0.9-1.1) APTT (24.1-38.0) SEC VBG pH (7.32-7.43) VBG pCO2 mmhg VBG pO2 mmhg VBG HCO3 mmol/L VBG O2 Saturation % VBG Base Excess mmol/L Sodium 132 L (135-145) mmol/L Potassium 5.0 D (3.3-5.1) mmol/l Chloride 89 L (96-108) mmol/L Carbon Dioxide 33 H (22-29) mmol/L Anion Gap 15 (12-20) BUN 8 L (9-16) mg/dL Creatinine 0.66 (0.5-1.4) mg/dL Estim Creat Clear Calc 69.2 Estimated GFR > 60 Random Glucose 169 H D (60-115) mg/dL Lactic Acid 2.1 H* (0.5-2.0) mmol/L Calcium 8.8 D (8.4-10.2) mg/dL Magnesium 2.4 (1.6-2.6) mg/dL Total Bilirubin 0.3 (0.0-1.0) mg/dL Direct Bilirubin 0.2 (0.0-0.5) mg/dL AST 14 (5-37) U/L ALT 6 (0-40) U/L Alkaline Phosphatase 88 D (39-117) U/L Lactate Dehydrogenase 130 (118-273) U/L Troponin I High Sens < 3.5 (<3.5-35.0) ng/L B-Natriuretic Peptide (<100) pg/mL Total Protein 7.7 (6.5-8.0) g/dL Albumin 3.6 (3.5-5.0) g/dL Lipase 12 (8-78) U/L Coronavirus (PCR) (Negative) Influenza Type A (PCR) (Negative) Influenza Type B (PCR) (Negative) RSV RNA Qual (PCR) (Negative) 08/05/20 08/05/20 Range/Units 11:42 11:45 WBC (4.8-10.8) X10*3/uL RBC (4.60-5.80) X10*6/uL Hgb (14.0-18.0) g/dl Hct (42-52) % MCV (80-98) fL MCH (27.0-33.0) pg MCHC (31.0-36.0) g/dl RDW (11.0-16.0) % Plt Count (160-400) X10*3/uL MPV (9.4-12.4) fL Immature Gran % (Auto) (0.0-0.4) % Neut % (Auto) (45-73) % Lymph % (Auto) (20-40) % Woods % (Auto) (2-11) % Eos % (Auto) (0-4) % Baso % (Auto) (0-2) % Lymph # (Auto) (1.2-4.9) X10*3/uL Woods # (Auto) (0.1-1.2) X10*3/uL Eos # (Auto) (0.0-0.4) X10*3/uL Baso # (Auto) (0.0-0.2) X10*3/uL Abs Immat Gran (auto) (0.00-0.03) X10*3/uL Absolute Neuts (auto) (2.0-8.3) X10*3/uL Absolute Nucleated RBC (0.0-0.012) X10*3/uL Nucleated RBC % (auto) (0.0-0.2) /100WBC PT (10.8-13.0) SEC INR (0.9-1.1) APTT (24.1-38.0) SEC VBG pH 7.38 (7.32-7.43) VBG pCO2 57 mmhg VBG pO2 56 mmhg VBG HCO3 33 mmol/L VBG O2 Saturation 87.5 % VBG Base Excess 5.9 mmol/L Sodium (135-145) mmol/L Potassium (3.3-5.1) mmol/l Chloride (96-108) mmol/L Carbon Dioxide (22-29) mmol/L Anion Gap (12-20) BUN (9-16) mg/dL Creatinine (0.5-1.4) mg/dL Estim Creat Clear Calc Estimated GFR Random Glucose (60-115) mg/dL Lactic Acid (0.5-2.0) mmol/L Calcium (8.4-10.2) mg/dL Magnesium (1.6-2.6) mg/dL Total Bilirubin (0.0-1.0) mg/dL Direct Bilirubin (0.0-0.5) mg/dL AST (5-37) U/L ALT (0-40) U/L Alkaline Phosphatase (39-117) U/L Lactate Dehydrogenase (118-273) U/L Troponin I High Sens (<3.5-35.0) ng/L B-Natriuretic Peptide (<100) pg/mL Total Protein (6.5-8.0) g/dL Albumin (3.5-5.0) g/dL Lipase (8-78) U/L Coronavirus (PCR) NEGATIVE (Negative) Influenza Type A (PCR) NEGATIVE (Negative) Influenza Type B (PCR) NEGATIVE (Negative) RSV RNA Qual (PCR) NEGATIVE (Negative) ECG Data Attestation: I personally reviewed and interpreted this ECG as follows: ECG interpretation date: 08/05/20 ECG interpretation time: 11:54 Interpretation: Rate: 129 Rhythm: sinus tachycardia [place]: left Normal P waves. Normal SHERIE. Normal QRS complex. ST T wave : normal no RIKKI qTC: normal prior studies: no acute ischemia The study has been interpreted contemporaneously by me. . Critical Care Time Critical Care Time Critical Care Time: Yes Total Critical Care Time: 35 Attestation: repeat nebs, IV antibiotics I attest to this time spent taking care of the patient Discharge Plan Discharge Clinical Impression: Bronchiectasis with (acute) exacerbation, Acidosis, lactic COPD (chronic obstructive pulmonary disease) Qualifiers: COPD type: COPD with acute exacerbation Qualified Code(s): J44.1 - Chronic obstructive pulmonary disease with (acute) exacerbation Patient Disposition: Admitted As Inpatient
--- NOTE | 2020-08-05 11:09 | ECG_ITS ---
Test Reason : SOB Blood Pressure : / mmHG Vent. Rate : 129 BPM Atrial Rate : 129 BPM P-R Int : 140 ms QRS Dur : 082 ms QT Int : 312 ms P-R-T Axes : 079 -70 067 degrees QTc Int : 457 ms Sinus tachycardia with Premature atrial complexes Biatrial enlargement Left axis deviation Pulmonary disease pattern Abnormal ECG When compared with ECG of 31-MAY-2020 21:35, No significant change was found Referred By: Diann Michel Electronically Signed By:Joseph Uribe
--- NOTE | 2020-08-05 11:10 | XR_ITS ---
EXAMINATION: XR CHEST CLINICAL INFORMATION: Cough. COMPARISON: X-ray 06/01/2020. CT scan 07/16/2020. TECHNIQUE: Frontal view of the chest was obtained. FINDINGS: Slightly rotated positioning. Stable cardiomediastinal silhouette. Emphysematous changes present. Redemonstrated are cavity changes in the right upper lobe, with adjacent airspace opacities and architectural distortion in the right upper lung. The slight difference in appearance is probably related to difference in positioning. There is bronchiectasis and bronchial wall thickening in the right midlung. There is airspace opacities, bronchiectasis and bronchial wall thickening in the left upper lobe, as well as bronchial wall thickening in the left [id number] lung as well. This appears similar as compared to previous. No new consolidation is identified in the [id number] lungs. No effusion or pulmonary edema. No pneumothorax. XR/XR chest 1V IMPRESSION: Emphysema. Prominent abnormal findings in bilateral lungs, detailed above. The slight difference in appearance, is probably related to difference in positioning. No convincing new consolidation identified in the [id number]-[id number] lungs.
[2020-08-05] MEDS: levalbuterol HCL 1.25 MG/3 ML VIAL.NEB INHALE (11:20)
[2020-08-05] MEDS: cefTRIAXone sodium 1 GM in 0.9 % Sodium Chloride 50 ML IV (11:50)
[2020-08-05] MEDS: 0.9 % Sodium Chloride 500 ML IV (11:50)
[2020-08-05 11:55] LABS: MANUAL DIFF FLAG NO
[2020-08-05 11:56] LABS: Base Excess VBG 5.9 mmol/L; Blood Gas Serial # 5414; HCO3 VBG 33 mmol/L; Oxygen Saturation VBG 87.5 %; PCO2 VBG 57 mmhg; PO2 VBG 56 mmhg; pH VBG 7.38 (7.32-7.43)
[2020-08-05 11:57] LABS: Basophils Absolute Auto 0.1 X10*3/uL (0.0-0.2); Basophils Percent Auto 0.6 % (0-2); Eosinophils Absolute Auto 0.1 X10*3/uL (0.0-0.4); Eosinophils Percent Auto 0.6 % (0-4); Hematocrit 37.3 % (42-52); Hemoglobin 11.9 g/dl (14.0-18.0); Imm Gran Abs Auto 0.03 X10*3/uL (0.00-0.03); Imm Gran Pct Auto 0.2 % (0.0-0.4); Lymphocytes Absolute Auto 0.9 X10*3/uL (1.2-4.9); Lymphocytes Percent Auto 7.3 % (20-40); Mean Corpuscular HGB Conc 31.9 g/dl (31.0-36.0); Mean Corpuscular Hemoglobin 28.2 pg (27.0-33.0); Mean Corpuscular Volume 88.4 fL (80-98); Mean Platelet Volume 8.9 fL (9.4-12.4); Monocytes Absolute Auto 1.4 X10*3/uL (0.1-1.2); Monocytes Percent Auto 11.3 % (2-11); Neutrophils Absolute Auto 10.2 X10*3/uL (2.0-8.3); Platelet Count 580 X10*3/uL (160-400); Red Blood Count 4.22 X10*6/uL (4.60-5.80); Red Cell Distribution Width 15.1 % (11.0-16.0); White Blood Count 12.7 X10*3/uL (4.8-10.8)
[2020-08-05 12:06] LABS: INTERNATIONAL NORM RATIO 1.1 (0.9-1.1)
[2020-08-05 12:20] LABS: Lactic Acid 2.1 mmol/L (0.5-2.0)
[2020-08-05 12:24] LABS: Alanine Aminotransferase 6 U/L (0-40); Albumin Level 3.6 g/dL (3.5-5.0); Alkaline Phosphatase 88 U/L (39-117); Anion Gap 15 (12-20); Aspartate Amino Transferase 14 U/L (5-37); Bilirubin Direct 0.2 mg/dL (0.0-0.5); Bilirubin Total 0.3 mg/dL (0.0-1.0); Blood Urea Nitrogen 8 mg/dL (9-16); Calcium 8.8 mg/dL (8.4-10.2); Carbon Dioxide 33 mmol/L (22-29); Chloride 89 mmol/L (96-108); Creatinine Clr Calc Pharmacy 69.2; Estimated Glomerular Filt Rate > 60; Glucose Random 169 mg/dL (60-115); Lactate Dehydrogenase 130 U/L (118-273); Lipase 12 U/L (8-78); Magnesium 2.4 mg/dL (1.6-2.6); Sodium 132 mmol/L (135-145); Total Protein 7.7 g/dL (6.5-8.0)
[2020-08-05 12:30] LABS: B Type Natriuretic Peptide 51 pg/mL (<100)
[2020-08-05 12:30] LABS: Troponin-I High Sensitivity < 3.5 ng/L (<3.5-35.0)
[2020-08-05 12:33] LABS: Influenza A PCR NEGATIVE (Negative); Influenza B PCR NEGATIVE (Negative); Resp Syncy Virus RNA Qual PCR NEGATIVE (Negative); SARS COV2 PCR INHOUSE NEGATIVE (Negative)
[2020-08-05] MEDS: Doxycycline Hyclate 100 MG in 0.9 % Sodium Chloride 250 ML 166.67 MG IV (12:35)
--- NOTE | 2020-08-05 13:28 | PM.IMHP ---
History of Present Illness Date of Service: 08/05/20 <Laurie Sosa NP - Last Filed: 08/05/20 14:55> Chief Complaint: Shortness of breath <Laurie Sosa NP - Last Filed: 08/05/20 14:55> 65 year old man presenting with increased shortness of breath over the last few days. He has a history of emphysema and bronchiectases. He does not use oxygen at home however he reported that his DuoNebs machine had broken and he had not been able to use over the last couple of days. He reported cough with yellow sputum. He denied fever, chills, nausea, vomiting, diarrhea, sick contacts, recent illness. He reports he quit smoking approximately 2 months ago. He was discharged on June 05 and at that time treated for respiratory failure with hypoxia, bronchiectases with acute exacerbation, pneumonia. The time he was admitted initially by the press clipper due to hypoxia. He is also hypotensive at this time. This time he does not appear to be hypoxic or hypotensive. He is on 2 L of oxygen satting 97%. He was given doxycycline, Rocephin, levalbuterol. Coronavirus PCR negative, flu negative. VBG looks okay. All other labs also looked okay although sodium was mildly decreased at 132, lactic acid 2.1. Will be admitted for further management and treatment of severe sepsis secondary to clinical pneumonia. <Laurie Sosa NP - Last Filed: 08/05/20 14:55> Review of Systems Review of Systems: Denies any recent fever chills or decrease in appetite respiratory denies any shortness of breath coverage production cardiovascular is adjustment of any PND or edema gastrointestinal denies any dysphagia abdominal pain nausea vomiting or diarrhea genitourinary denies any dysuria frequency or hematuria musculoskeletal denies any joint pain or swelling neuropsych denies any weakness or seizures all other systems reviewed are negative <Laurie Sosa NP - Last Filed: 08/05/20 14:55> [facility] Medical History: Medical History Asthma COPD (chronic obstructive pulmonary disease) COPD exacerbation Latent tuberculosis Mycobacteria, atypical <Laurie Sosa NP - Last Filed: 08/05/20 14:55> Family History: Family History Other Family history non-contributory <Laurie Sosa NP - Last Filed: 08/05/20 14:55> Social History: Social History Household Members: Spouse Housing: Apartment Do you presently have visiting nurse or other home services: No Alcohol intake: never Smoking Status: Former smoker Smoked in Last 30 Days: No Second Hand Smoke Exposure: No Use of substances other than those prescribed or required for medical reasons: No Substance Use Type: Crack/Cocaine Currently Displaying Signs/Symptoms of Drug Intoxication Withdrawal: No Any prior treatment program specific to substance use: No Have you been hit, kicked, punched, or otherwise hurt by someone within the past year? If so, by whom?: No Do you feel safe in your current relationship?: Yes Is there a partner from a previous relationship who is making you feel unsafe now?: No Are you made to feel afraid or neglected: No Advance Directives: No Advance Directives Information Provided: No Do you have thoughts of harming others: None Do you have a plan to hurt others: No Plan Recently lost weight without trying: No service: No Current occupational status: retired <Laurie Sosa NP - Last Filed: 08/05/20 14:55> Meds Allergies/Adverse reactions: Allergies Allergy/AdvReac Type Severity Reaction Status Date / Time morphine [MORPHINE] Allergy Mild VOMITING Verified 06/02/20 11:30 <Laurie Sosa NP - Last Filed: 08/05/20 14:55> Home medications: Home Medications Medication Instructions Recorded Confirmed Type Atrovent HFA 2 puff PO QID 06/01/20 08/05/20 History albuterol sulfate 1 amp INHALATION QID PRN 06/01/20 08/05/20 History aspirin 1 tab PO DAILY 06/01/20 08/05/20 History atorvastatin 1 tab PO DAILY 06/01/20 08/05/20 History montelukast 1 tab PO BEDTIME 06/01/20 08/05/20 History sildenafil [Viagra] 0.5 - 1 tab PO DAILY PRN 06/01/20 08/05/20 History Breo Ellipta 1 puff PO DAILY 08/05/20 08/05/20 History bupropion HCl 1 tab PO BID 08/05/20 08/05/20 History ferrous sulfate 325 mg PO DAILY 08/05/20 08/05/20 History fluticasone propionate 2 spray INTRANASAL DAILY PRN 08/05/20 08/05/20 History ketoconazole 1 appl TOPICAL 2XW 08/05/20 08/05/20 History multivitamin 1 tab PO DAILY 08/05/20 08/05/20 History nicotine (polacrilex) 1 reese PO Q4H 08/05/20 08/05/20 History sennosides [senna] 1 - 2 tab PO DAILY PRN 08/05/20 08/05/20 History <Laurie Sosa NP - Last Filed: 08/05/20 14:55> Physical Exam Vital Signs and Narrative: Vital Signs: Last Vital Signs Temp 97.6 F 08/05/20 11:12 Pulse 117 H 08/05/20 12:34 Resp 21 H 08/05/20 12:34 BP 109/71 08/05/20 12:34 Pulse Ox 95 08/05/20 12:34 Body Mass Index 16.8 <Laurie Sosa NP - Last Filed: 08/05/20 14:55> Appearing in no acute distress head is normocephalic atraumatic eyes pupils are PERRLA sclera is anicteric mouth throat mucous membranes are intact and moist neck is supple no lymphadenopathy, no JVD noted lung sounds are clear to auscultation heart regular rate rhythm, clear S1, S2 positive bowel sounds, abdomen is soft, nontender neuro patient is alert x3, no focal deficits <Laurie Sosa NP - Last Filed: 08/05/20 14:55> Results Labs CBC and Chem 7: : 08/06/20 09:28 08/06/20 09:28 <Laurie Sosa NP - Last Filed: 08/05/20 14:55> Labs: Laboratory Results - last 24 hr 08/05/20 08/05/20 08/05/20 11:40 11:40 11:40 MCV 88.4 MCH 28.2 MCHC 31.9 RDW 15.1 Plt Count 580 H D MPV 8.9 L Immature Gran % (Auto) 0.2 Neut % (Auto) 80.0 H Lymph % (Auto) 7.3 L [place] % (Auto) 11.3 H Eos % (Auto) 0.6 Baso % (Auto) 0.6 Lymph # (Auto) 0.9 L [place] # (Auto) 1.4 H Eos # (Auto) 0.1 Baso # (Auto) 0.1 Abs Immat Gran (auto) 0.03 Absolute Neuts (auto) 10.2 H Absolute Nucleated RBC 0.000 Nucleated RBC % (auto) 0.0 PT 13.0 INR 1.1 APTT 36.0 VBG pH VBG pCO2 VBG pO2 VBG HCO3 VBG O2 Saturation VBG Base Excess Anion Gap Estim Creat Clear Calc Estimated GFR Random Glucose Lactic Acid Calcium Magnesium Total Bilirubin Direct Bilirubin AST ALT Alkaline Phosphatase Lactate Dehydrogenase Troponin I High Sens B-Natriuretic Peptide 51 Total Protein Albumin Lipase Coronavirus (PCR) Influenza Type A (PCR) Influenza Type B (PCR) RSV RNA Qual (PCR) 08/05/20 08/05/20 08/05/20 11:40 11:41 11:41 MCV MCH MCHC RDW Plt Count MPV Immature Gran % (Auto) Neut % (Auto) Lymph % (Auto) [place] % (Auto) Eos % (Auto) Baso % (Auto) Lymph # (Auto) [place] # (Auto) Eos # (Auto) Baso # (Auto) Abs Immat Gran (auto) Absolute Neuts (auto) Absolute Nucleated RBC Nucleated RBC % (auto) PT INR APTT VBG pH VBG pCO2 VBG pO2 VBG HCO3 VBG O2 Saturation VBG Base Excess Anion Gap 15 Estim Creat Clear Calc 69.2 Estimated GFR > 60 Random Glucose 169 H D Lactic Acid 2.1 H* Calcium 8.8 D Magnesium 2.4 Total Bilirubin 0.3 Direct Bilirubin 0.2 AST 14 ALT 6 Alkaline Phosphatase 88 D Lactate Dehydrogenase 130 Troponin I High Sens < 3.5 B-Natriuretic Peptide Total Protein 7.7 Albumin 3.6 Lipase 12 Coronavirus (PCR) Influenza Type A (PCR) Influenza Type B (PCR) RSV RNA Qual (PCR) 08/05/20 08/05/20 11:42 11:45 MCV MCH MCHC RDW Plt Count MPV Immature Gran % (Auto) Neut % (Auto) Lymph % (Auto) [place] % (Auto) Eos % (Auto) Baso % (Auto) Lymph # (Auto) [place] # (Auto) Eos # (Auto) Baso # (Auto) Abs Immat Gran (auto) Absolute Neuts (auto) Absolute Nucleated RBC Nucleated RBC % (auto) PT INR APTT VBG pH 7.38 VBG pCO2 57 VBG pO2 56 VBG HCO3 33 VBG O2 Saturation 87.5 VBG Base Excess 5.9 Anion Gap Estim Creat Clear Calc Estimated GFR Random Glucose Lactic Acid Calcium Magnesium Total Bilirubin Direct Bilirubin AST ALT Alkaline Phosphatase Lactate Dehydrogenase Troponin I High Sens B-Natriuretic Peptide Total Protein Albumin Lipase Coronavirus (PCR) NEGATIVE Influenza Type A (PCR) NEGATIVE Influenza Type B (PCR) NEGATIVE RSV RNA Qual (PCR) NEGATIVE <Laurie Sosa NP - Last Filed: 08/05/20 14:55> Imaging Radiologist's Impressions: Impressions Chest X-Ray 08/05/20 11:10 IMPRESSION: Emphysema. Prominent abnormal findings in bilateral lungs, detailed above. The slight difference in appearance, is probably related to difference in positioning. No convincing new consolidation identified in the [id number] lungs. <Laurie Sosa NP - Last Filed: 08/05/20 14:55> Assessment and Plan (1) COPD (chronic obstructive pulmonary disease): Qualifiers: COPD type: COPD with acute exacerbation Qualified Code(s): J44.1 - Chronic obstructive pulmonary disease with (acute) exacerbation <Laurie Sosa NP - Last Filed: 08/05/20 14:55> Status: Acute <Laurie Sosa NP - Last Filed: 08/05/20 14:55> (2) Pneumonia: Qualifiers: Laterality: right Lung location: lower lobe of lung Pneumonia type: due to unspecified organism Qualified Code(s): J18.9 - Pneumonia, unspecified organism <Laurie Sosa NP - Last Filed: 08/05/20 14:55> Problem details: left against medical advice; sent prescription for amoxicillin/clavulanate 875/125 mg q12h x 2 days <Laurie Sosa NP - Last Filed: 08/05/20 14:55> Status: Acute <Laurie Sosa NP - Last Filed: 08/05/20 14:55> 65-year-old man admitted with severe sepsis secondary to clinical pneumonia and COPD. Severe sepsis. Leukocytosis, tachycardia, tachypnea, lactic acidosis. Follow blood cultures. Clinical pneumonia/ bronchitis. Will treat with Rocephin and doxycycline. Levalbuterol due to tachycardia, supplemental oxygen as needed. Hyperlipidemia. Continue aspirin and statin Depression. Continue bupropion. Anemia. Continue iron supplementation. DVT prophylaxis with Lovenox Discussed with Dr. Shanks Full code <Laurie Sosa NP - Last Filed: 08/05/20 14:55>
[2020-08-05 13:54] LABS: Reflex Lactate? Lactic Acid Added
--- NOTE | 2020-08-05 15:54 | PM.EVENT ---
Event Note Date of Service: 08/05/20 Event Note: pt seen and examined independently. I agree with Laurie Sosa note, assessment and plan. Pt presents with what appears to be COPD exacerbation. On my exam, pt laying in bed, his NC at his mouth, not in his nose, sating 96%. No tachypnea. has no wheezing. Cxr negative , COVID 19 negative Pt will be admitted and tx for COPD exacerbation for full note please see H&P
[2020-08-05 17:27] LABS: ~Lactic Acid-LAB USE ONLY 1.5 mmol/L (0.5-2.0)
[2020-08-06] VITALS: BP 112/65; PULSE 102; RESP 16; O2SAT 98
--- NOTE | 2020-08-06 00:51 | PC.NURSE ---
PT RESTING IN STRETCHER, PT POLISH SPEAKING AND UNABLE TO U/S [place]. UNABLE TO GIVE TO REPORT TO FLOOR WILL RETURN CALL. PT REMAINS ALERT, DENIES ANY PAIN. PT ON 3L NC WITH A PO OF 98%.
--- NOTE | 2020-08-06 01:20 | PC.NURSE ---
UNABLE TO TAKE REPORT ON THE FLOOR, WILL RETURN CALL.
[2020-08-06 02:17] VITALS: BP 118/73; PULSE 106; RESP 18; TEMP 35.7; O2SAT 99
[2020-08-06] MEDS: buPROPion HCl XL 150 MG TAB.ER.24H PO ×2 (03:04→08:53)
[2020-08-06] MEDS: Flu Vacc QS2020-21(6mos up)/PF 0.5 ML SYRINGE IM (03:04)
[2020-08-06] MEDS: 0.9 % Sodium Chloride Flush 3 ML SYRINGE IVFLUSH ×2 (03:04→08:53)
[2020-08-06] MEDS: Montelukast Sodium 10 MG TABLET PO (03:04)
[2020-08-06] MEDS: Doxycycline Hyclate 100 MG in 0.9 % Sodium Chloride 250 ML 166.67 MG IV ×2 (03:10→13:18)
[2020-08-06 03:44] VITALS: BP 113/61; PULSE 98; RESP 18; TEMP 36.4; O2SAT 99
--- NOTE | 2020-08-06 05:53 | PC.NURSE ---
[place] [facility] [facility] WITH SOB. PT AMBULATED TO BED WITHOUT DIFFICULTY. VSS. 3LNC IN PLACE. LS DIMINISHED THROUGHOUT. PT ORIENTED TO ROOM/UNIT. PLAN OF CARE EXPLAINED AND PT IS AGREEABLE TO. FLU SHOT GIVEN. SINUS RHYTHM ON THE MONITOR. PT IS NOT A FALL RISK. CALL SANCHEZ IN REACH.
[2020-08-06 07:41] VITALS: BP 107/60; PULSE 94; RESP 18; TEMP 36.4; O2SAT 97
[2020-08-06] MEDS: Aspirin Enteric Coated 81 MG TABLET.DR PO (08:53)
[2020-08-06] MEDS: Ferrous Sulfate 324 MG TABLET.DR PO (08:53)
[2020-08-06] MEDS: Multivitamin TABLET 1 TAB PO (08:53)
--- NOTE | 2020-08-06 09:36 | MHC.CDI.CONC ---
CDI Concurrent Query Service Date: 08/06/20 Documentation Clarification: Please clarify if you are treating a probable/suspected/likely or confirmed:COPD exacerbation Body Mass Index Malnutrition, protein calorie, mild, moderate or severe Underweight Please specify if known or other Provider Response: COPD Exacerbation PLEASE DO NOT DELETE/MODIFY EXISTING CONTENT Additional information is needed in order to code to the highest accuracy and appropriate Severity of Illness (SOI). Please clarify the information noted below in your progress notes and discharge summary. Risk Factors/Clinical Indicators/Treatments Body Mass Index: 16.8 CDS: Carole Chirinos [facility], CDIS Contact Number: [phone] Please Review the information above and exercise your independent professional judgment in responding to the query. If you concur, pleas document in the PROGRESS NOTES and DISCHARGE SUMMARY. If you do not agree with the query, please document in the query above. THIS QUERY IS PART OF THE PERMANENT MEDICAL RECORD
--- NOTE | 2020-08-06 09:42 | MHC.CM.PN ---
CM spoke with Patient at [phone]. Patient lives in an apartment with his /HCP/Angelina and he was functionally independent (No prior services nor DME). Goal for dc is to return home and CM has initiated and will follow for dc planning. PCP is Dr. Eliza Lorenzana. IMM addressed with Patient. Patient has a cane.
[2020-08-06 10:08] LABS: Hematocrit 35.1 % (42-52); Hemoglobin 11.2 g/dl (14.0-18.0); Imm Gran Abs Auto 0.04 X10*3/uL (0.00-0.03); Imm Gran Pct Auto 0.5 % (0.0-0.4); Lymphocytes Absolute Auto 0.6 X10*3/uL (1.2-4.9); Lymphocytes Percent Auto 7.7 % (20-40); MANUAL DIFF FLAG SCAN; Mean Corpuscular HGB Conc 31.9 g/dl (31.0-36.0); Mean Corpuscular Hemoglobin 28.4 pg (27.0-33.0); Mean Corpuscular Volume 88.9 fL (80-98); Mean Platelet Volume 9.1 fL (9.4-12.4); Monocytes Absolute Auto 0.5 X10*3/uL (0.1-1.2); Monocytes Percent Auto 6.1 % (2-11); Neutrophils Absolute Auto 6.8 X10*3/uL (2.0-8.3); Neutrophils Percent Auto 85.7 % (45-73); Platelet Count 610 X10*3/uL (160-400); Red Blood Count 3.95 X10*6/uL (4.60-5.80); Red Cell Distribution Width 14.9 % (11.0-16.0); SCAN SMEAR FLAG 1; White Blood Count 7.9 X10*3/uL (4.8-10.8)
[2020-08-06 10:29] LABS: Anion Gap 13 (12-20); Blood Urea Nitrogen 7 mg/dL (9-16); Calcium 8.5 mg/dL (8.4-10.2); Carbon Dioxide 32 mmol/L (22-29); Chloride 92 mmol/L (96-108); Creatinine Clr Calc Pharmacy 77.4; Estimated Glomerular Filt Rate > 60; Glucose Random 158 mg/dL (60-115); Potassium 4.9 mmol/l (3.3-5.1); Sodium 132 mmol/L (135-145)
[2020-08-06 11:03] VITALS: BP 117/77; PULSE 106; RESP 18; TEMP 36.7; O2SAT 92
[2020-08-06 11:35] LABS: SLIDE REVIEW VERIFIED
--- NOTE | 2020-08-06 11:42 | P.DS_ITS ---
DS: Providers Provider Date of admission: 08/05/20 14:45 Primary care physician: Eliza Lorenzana NP DS: Diagnosis Discharge Diagnosis (1) COPD (chronic obstructive pulmonary disease): Status: Acute (2) Pneumonia: Status: Acute Problem details: left against medical advice; sent prescription for amoxicillin/clavulanate 875/125 mg q12h x 2 days DS: Medications Discharge Medications Home Medications: Home Medications Medication Instructions Recorded Confirmed Atrovent HFA 2 puff PO QID 06/01/20 08/05/20 albuterol sulfate 1 amp INHALATION QID PRN 06/01/20 08/05/20 aspirin 1 tab PO DAILY 06/01/20 08/05/20 atorvastatin 1 tab PO DAILY 06/01/20 08/05/20 montelukast 1 tab PO BEDTIME 06/01/20 08/05/20 sildenafil [Viagra] 0.5 - 1 tab PO DAILY PRN 06/01/20 08/05/20 Breo Ellipta 1 puff PO DAILY 08/05/20 08/05/20 bupropion HCl 1 tab PO BID 08/05/20 08/05/20 ferrous sulfate 325 mg PO DAILY 08/05/20 08/05/20 fluticasone propionate 2 spray INTRANASAL DAILY PRN 08/05/20 08/05/20 ketoconazole 1 appl TOPICAL 2XW 08/05/20 08/05/20 multivitamin 1 tab PO DAILY 08/05/20 08/05/20 nicotine (polacrilex) 1 reese PO Q4H 08/05/20 08/05/20 sennosides [senna] 1 - 2 tab PO DAILY PRN 08/05/20 08/05/20 Previous Rx's Medication Instructions Recorded ipratropium 0.5 mg-albuterol 3 mg 3 ml INHALATION QID 30 Days #360 ml 06/28/20 (2.5 mg base)/3 mL nebulization soln dextromethorphan-guaifenesin 5 ml PO Q4H PRN #100 ml 08/06/20 levofloxacin 750 mg PO Q24H 7 Days #7 tab 08/06/20 prednisone 40 mg PO DAILY 5 Days #10 tab 08/06/20 DS: Summary Hospital Course Hospital Course: HPI obtained from Laurie Sosa note : 65 year old man presenting with increased shortness of breath over the last few days. He has a history of emphysema and bronchiectases. He does not use oxygen at home however he reported that his [employer] machine had broken and he had not been able to use over the last couple of days. He reported cough with yellow sputum. He denied fever, chills, nausea, vomiting, diarrhea, sick contacts, recent illness. He reports he quit smoking approximately 2 months ago. He was discharged on June 05 and at that time treated for respiratory failure with hypoxia, bronchiectases with acute exacerbation, pneumonia. The time he was admitted initially by the steam conditioner filling due to hypoxia. He is also hypotensive at this time. This time he does not appear to be hypoxic or hypotensive. He is on 2 L of oxygen satting 97%. He was given doxycycline, Rocephin, levalbuterol. Coronavirus PCR negative, flu negative. VBG looks okay. All other labs also looked okay although sodium was mildly decreased at 132, lactic acid 2.1. Will be admitted for further management and treatment of severe sepsis secondary to Hospital Course This is a 65-year-old male who presents to the hospital COPD exacerbation. Patient had cough, shortness of breath, sputum production. Treated with a course of IV antibiotics, IV steroids, breathing treatment with improvement in his symptoms. Patient is off oxygen, ambulated 100 ft off of oxygen and satting 92% with no respiratory distress. Patient will be sent home on course of prednisone, p.o. levofloxacin and breathing treatment. COVID-19 test negative. Chest x-ray showed no evidence of consolidation. Time Spent with Patient Time attestation: Total time spent providing and/or coordinating discharge services: Physical Exam Vital Signs: Vital Signs: Last Vital Signs Temp 98.0 F 08/06/20 11:03 Pulse 106 H 08/06/20 11:03 Resp 18 08/06/20 11:03 BP 117/77 08/06/20 11:03 Pulse Ox 92 08/06/20 11:03 Body Mass Index 16.8 Const: General: cooperative and no acute distress Orientation/consciousness: patient oriented x3 Eyes: General: appearance normal, both eyes and all related structures Pupils: Equal, round and reactive pupils present Resp: Other: No wheezing, no rhonchi Effort & Inspection: normal respiratory effort and able to speak in complete sentences Auscultation: clear to auscultation bilaterally Cardio: Rate: regular rate Rhythm: regular rhythm GI: Palpation (GI): Soft to palpation Auscultation: normal bowel sounds Neuro: General: patient oriented x3 Cranial nerves: Yes Equal, round and reactive pupils present Cognition (Neuro): normal cognition Extrem: General: Yes normal to inspection and Yes no pedal edema DS: Data Data Completed and Pending Completed studies during hospitalization [Text1]: Procedures Detoxification Services for Substance Abuse Treatment (06/01/20) Insertion of Infusion Device into Superior Vena Cava, Percutaneous Approach (06/01/20) Introduction of Vasopressor into Peripheral Vein, Percutaneous Approach (06/01/20) Ultrasonography of Superior Vena Cava, Guidance (06/01/20) Labs on day of discharge: 08/05/20 11:08 levalbuterol HCL [Xopenex] 1.25 mg INHALE ONCE ONE 08/05/20 11:09 ECG 12 lead EKG Stat EKG Documentation DIRECTED 08/05/20 11:10 XR chest 1V Stat 08/05/20 11:13 Doxycycline Hyclate [Vibramycin] 100 mg 0.9 % Sodium Chloride [Ns] 250 ml IV ONCE cefTRIAXone sodium [Rocephin] 1 gm 0.9 % Sodium Chloride [Ns] 50 ml IV ONCE 08/05/20 11:15 0.9 % Sodium Chloride [Ns] 500 ml IV 500 mls/hr 08/05/20 11:34 Doxycycline Hyclate [Vibramycin] 100 mg IV .STK-MED ONE 08/05/20 11:35 cefTRIAXone sodium [Rocephin] 1 gm .ROUTE .STK-MED ONE 08/05/20 11:40 B Type Natriuretic Peptide Stat Basic Metabolic Panel Stat Complete Blood Count Auto Diff Stat Lactate Dehydrogenase Stat Lipase Stat Liver Panel Stat Magnesium Stat Partial Thromboplastin Time Stat Prothrombin Time INR Stat 08/05/20 11:41 Lactic Acid Stat Troponin-I High Sensitivity Stat 08/05/20 11:42 SARS-CoV2/FLU/RSV Stat 08/05/20 11:45 Venous Blood Gas Stat 08/05/20 14:40 Transfer Order Routine 08/05/20 16:55 ~Lactic Acid-LAB USE ONLY Stat 08/06/20 02:42 Flu Vacc [id number](6mos up)/PF [Fluarix Quad ] 0.5 ml IM .ONCE ONE 08/06/20 02:55 Doxycycline Hyclate [Vibramycin] 100 mg IV .STK-MED ONE 08/06/20 09:28 Basic Metabolic Panel DAILY@0600 Complete Blood Count Auto Diff DAILY@0600 SLIDE REVIEW Routine Laboratory Last Values WBC 7.9 X10*3/uL (4.8-10.8) 08/06/20 09:28 RBC 3.95 X10*6/uL (4.60-5.80) L 08/06/20 09:28 Hgb 11.2 g/dl (14.0-18.0) L 08/06/20 09:28 Hct 35.1 % (42-52) L 08/06/20 09: MCV 88.9 fL (80-98) 08/06/20 09: MCH 28.4 pg (27.0-33.0) 08/06/20 09: MCHC 31.9 g/dl (31.0-36.0) 08/06/20 09: RDW 14.9 % (11.0-16.0) 08/06/20 09:28 Plt Count 610 X10*3/uL (160-400) H 08/06/20 09:28 MPV 9.1 fL (9.4-12.4) L 08/06/20: Immature Gran % (Auto) 0.5 % (0.0-0.4) H 08/06/20: Neut % (Auto) 85.7 % (45-73) H 08/06/20: Lymph % (Auto) 7.7 % (20-40) L 08/06/20 09:28 Bailey % (Auto) 6.1 % (2-11) 08/06/20: Eos % (Auto) 0.0 % (0-4) 08/06/20: Baso % (Auto) 0.0 % (0-2) 08/06/20:28 Lymph # (Auto) 0.6 X10*3/uL (1.2-4.9) L 08/06/20 09:28 Bailey # (Auto) 0.5 X10*3/uL (0.1-1.2) 08/06/20 09:28 Eos # (Auto) 0.0 X10*3/uL (0.0-0.4) 08/06/20 09:28 Baso # (Auto) 0.0 X10*3/uL (0.0-0.2) 08/06/20 09:28 Abs Immat Gran (auto) 0.04 X10*3/uL (0.00-0.03) H 08/06/20 09:28 Absolute Neuts (auto) 6.8 X10*3/uL (2.0-8.3) 08/06/20 09:28 Absolute Nucleated RBC 0.000 X10*3/uL (0.0-0.012) 08/06/20 09:28 Nucleated RBC % (auto) 0.0 /100WBC (0.0-0.2) 08/06/20 09:28 Smear Tech's Comments VERIFIED 08/06/20 09:28 PT 13.0 SEC (10.8-13.0) 08/05/20 11:40 INR 1.1 (0.9-1.1) 08/05/20 11:40 APTT 36.0 SEC (24.1-38.0) 08/05/20 11:40 VBG pH 7.38 (7.32-7.43) 08/05/20 11:45 VBG pCO2 57 mmhg 08/05/20 11:45 VBG pO2 56 mmhg 08/05/20 11:45 VBG HCO3 33 mmol/L 08/05/20 11:45 VBG O2 Saturation 87.5 % 08/05/20 11:45 VBG Base Excess 5.9 mmol/L 08/05/20 11:45 Sodium 132 mmol/L (135-145) L 08/06/20 09:28 Potassium 4.9 mmol/l (3.3-5.1) 08/06/20 09:28 Chloride 92 mmol/L (96-108) L 08/06/20 09:28 Carbon Dioxide 32 mmol/L (22-29) H 08/06/20 09:28 Anion Gap 13 (12-20) 08/06/20 09:28 BUN 7 mg/dL (9-16) L 08/06/20 09:28 Creatinine 0.59 mg/dL (0.5-1.4) 08/06/20 09:28 Estim Creat Clear Calc 77.4 08/06/20 09:28 Estimated GFR > 60 08/06/20 09:28 Random Glucose 158 mg/dL (60-115) H 08/06/20 09:28 Lactic Acid 2.1 mmol/L (0.5-2.0) H* 08/05/20 11:41 Lactic Acid Fup @ 2Hr 1.5 mmol/L (0.5-2.0) 08/05/20 16:55 Calcium 8.5 mg/dL (8.4-10.2) 08/06/20 09:28 Magnesium 2.4 mg/dL (1.6-2.6) 08/05/20 11:40 Total Bilirubin 0.3 mg/dL (0.0-1.0) 08/05/20 11:40 Direct Bilirubin 0.2 mg/dL (0.0-0.5) 08/05/20 11:40 AST 14 U/L (5-37) 08/05/20 11:40 ALT 6 U/L (0-40) 08/05/20 11:40 Alkaline Phosphatase 88 U/L (39-117) D 08/05/20 11:40 Lactate Dehydrogenase 130 U/L (118-273) 08/05/20 11:40 Troponin I High Sens < 3.5 ng/L (<3.5-35.0) 08/05/20 11:41 B-Natriuretic Peptide 51 pg/mL (<100) 08/05/20 11:40 Total Protein 7.7 g/dL (6.5-8.0) 08/05/20 11:40 Albumin 3.6 g/dL (3.5-5.0) 08/05/20 11:40 Lipase 12 U/L (8-78) 08/05/20 11:40 Coronavirus (PCR) NEGATIVE (Negative) 08/05/20 11:42 Influenza Type A (PCR) NEGATIVE (Negative) 08/05/20 11:42 Influenza Type B (PCR) NEGATIVE (Negative) 08/05/20 11:42 RSV RNA Qual (PCR) NEGATIVE (Negative) 08/05/20 11:42 Discharge Plan Discharge Patient Disposition: Home, Self-Care Referrals: Eliza Lorenzana NP [Primary Care Provider] - Discharge Medications: New dextromethorphan-guaifenesin 10-100 mg/5 mL Syrup 5 ml PO Q4H PRN (Reason: cough ) Qty: 100 RF: 0 levofloxacin 750 mg tablet 750 mg PO Q24H 7 Days Qty: 7 RF: 0 prednisone 20 mg tablet 40 mg PO DAILY 5 Days Qty: 10 RF: 0 Continued ipratropium-albuterol 0.5 mg-3 mg(2.5 mg base)/3 mL solution for nebulization 3 ml inhalation QID 30 Days Qty: 360 RF: 6 atorvastatin 20 mg tablet 1 tab PO DAILY RF: 0 albuterol sulfate 2.5 mg /3 mL (0.083 %) solution for nebulization 1 amp inhalation QID PRN (Reason: Wheezing) RF: 0 aspirin 81 mg tablet,delayed release (DR/EC) 1 tab PO DAILY RF: 0 sildenafil [Viagra] 100 mg tablet 0.5 - 1 tab PO DAILY PRN (Reason: Erectile Dysfunction) RF: 0 montelukast 10 mg tablet 1 tab PO BEDTIME RF: 0 Atrovent HFA 17 mcg/actuation HFA aerosol inhaler 2 puff PO QID RF: 0 multivitamin Tablet 1 tab PO DAILY RF: 0 bupropion HCl 150 mg tablet sustained-release 12 hr 1 tab PO BID RF: 0 sennosides [senna] 8.6 mg tablet 1 - 2 tab PO DAILY PRN (Reason: Constipation) RF: 0 ketoconazole 2 % shampoo 1 appl topical 2XW RF: 0 ferrous sulfate 325 mg (65 mg iron) tablet 325 mg PO DAILY RF: 0 fluticasone propionate 50 mcg/actuation spray,suspension 2 spray intranasal DAILY PRN (Reason: Nasal Congestion) RF: 0 nicotine (polacrilex) 2 mg lozenge 1 reese PO Q4H RF: 0 Breo Ellipta 200-25 mcg/dose blister with device 1 puff PO DAILY RF: 0 Discharge Orders: Discharge Order (Routine); Ordered 08/06/20 Ordered By: Jonathan Chappell Activity on Discharge: As tolerated Patient Instructions: Pneumonia (DC) Visit Report Forms: Patient Portal Discharge page Care Plan Goals: Recovery, avoid hospitalization, Avoid COPD exacerbation Health Concerns: See below Plan of Treatment: You presented to the hospital with COPD exacerbation you were treated with antibiotics, steroids and breathing treatment. You are doing well and not requiring any oxygen you will be discharged home with 7 days of oral antibiotics for your COPD and 5 day course of steroids if you have any worsening of your Shortness of breath, cough, persistent fever, please return to the ED
[2020-08-06] MEDS: polyethylene glycoL 3350 17 GM POWD.PACK PO (11:54)
[2020-08-06] MEDS: cefTRIAXone sodium 1 GM in 0.9 % Sodium Chloride 50 ML IV (11:54)
--- NOTE | 2020-08-06 11:56 | MHC.CM.PN ---
Patient has been medically cleared for dc to home today, no services. IMM addressed this morning.
== END 2020-08-06 15:10 | disposition home or self-care (01) | DRG 190 ==
LOC: HO.ED 13:17 → HO.IMC 21:47
PROVIDERS: Nurse Practitioner Acute Care; Admitting Provider Internal Medicine; Emergency Provider Emergency Medicine; PCP Nurse Practitioner Family; Visit Provider Internal Medicine
DX: J44.1 Chronic obstructive pulmonary disease with (acute) exacerbation (principal); J18.9 Pneumonia, unspecified organism; J44.0 Chronic obstructive pulmonary disease with (acute) lower respiratory infection; Z87.891 Personal history of nicotine dependence; Z23 Encounter for immunization; Z99.81 Dependence on supplemental oxygen; Z88.5 Allergy status to narcotic agent; Z79.52 Long term (current) use of systemic steroids; Z79.899 Other long term (current) drug therapy
CPT/HCPCS: 0241U; 36415; 71045; 80048; 80076; 82803; 83605; 83615; 83690; 83735; 83880; 84484; 85025; 85610; 85730; 87040; 90686; 93005; 94640; 96365; 96367; 97161; 99284; 99285; 99291; J0696; J2920

== ENCOUNTER 2020-08-20 16:01 | Inpatient (IN) | payer OTHER, SELFPAY ==
--- NOTE | 2020-08-20 16:13 | ECG_ITS ---
Test Reason : SOB/TACHY Blood Pressure : / mmHG Vent. Rate : 149 BPM Atrial Rate : 149 BPM P-R Int : 118 ms QRS Dur : 078 ms QT Int : 262 ms P-R-T Axes : 083 -64 076 degrees QTc Int : 412 ms Sinus tachycardia Right atrial enlargement Left axis deviation Pulmonary disease pattern Abnormal ECG When compared to the previous EKG of No significant changes seen Referred By: Miguelina Ontiveros Electronically Signed By:Joseph Uribe
[2020-08-20 16:20] VITALS: BP 152/78; BP 158/95; PULSE 145; PULSE 147; RESP 26; TEMP 37.2; O2SAT 99; BMI 16.0
--- NOTE | 2020-08-20 16:32 | XR_ITS ---
EXAMINATION: XR CHEST CLINICAL INFORMATION: Decreased breath sounds COMPARISON: Previous chest x-rays most recent August 05, [address] most recent June 2020 TECHNIQUE: Frontal view of the chest was obtained. FINDINGS: The lungs are well inflated. There is volume loss to both upper lobes. There is a thick-walled cavity seen at the right lung apex that appears unchanged. There is surrounding right bronchial wall thickening and bronchial dilatation that is unchanged. There is pleural and parenchymal scarring in the peripheral left upper lobe that is unchanged. There are multiple small calcified pulmonary nodules that appear unchanged. The cardiac silhouette does not appear enlarged. There is abnormal appearance to the right superior mediastinum/hilar region is increased in size and density. This appears unchanged. There is no pleural effusion or pneumothorax. XR/XR chest 1V IMPRESSION: Hyperinflation. Bilateral upper lobe volume loss. Stable small right apical thick walled cavity formation and adjacent bronchiectasis and bronchial wall thickening and left upper lobe peripheral pleural and parenchymal scarring from previous recent exams.
--- NOTE | 2020-08-20 16:36 | CT_ITS ---
EXAMINATION: CT ANGIOGRAM OF THE CHEST WITH AND WITHOUT CONTRAST (CT PULMONARY ANGIOGRAM FOR PE) CLINICAL INFORMATION: Reason for Exam tachycardic, SOB, hypoxic COMPARISON: Chest x-ray earlier today and chest CT 07/16/2020 TECHNIQUE: Prior to contrast administration, noncontrast localization images were obtained. Subsequently, multidetector volumetric imaging was performed from the thoracic inlet to below the diaphragms following the administration of 65 mL Omnipaque 350 intravenous contrast. No contrast reaction reported Sagittal, coronal, and MIP oblique sagittal reformatted images were obtained on the CT workstation, uploaded to PACS, and reviewed. This CT examination was performed using dose optimization techniques as appropriate, variously including the following: *Automated exposure control *Adjustment of mA and/or kV according to patient size (this includes techniques or standardized protocols for targeted exams where dose is matched to indication/reason for exam; i.e. extremities or head) *Use of iterative reconstruction technique Total exam dose-length product 180 mGy-cm FINDINGS: The heart is normal in size. Coronary artery calcifications are present. There is no pericardial effusion. No pulmonary arterial filling defect to suggest pulmonary embolus. Nonaneurysmal thoracic aorta. No gross mediastinal lymphadenopathy. No enlarged axillary lymph nodes. Similar appearance of the thick walled cavitary lesion within the right upper lobe with associated volume loss and mediastinal shift to the right. Nodular thickening and cavitary solid components appear relatively stable and prominence. Emphysema and biapical pleural scarring are also again noted. There has however been interval development/worsening of more confluent airspace disease within the superior segment of the right lower lobe which is nonspecific (image 26/75, series 9). Left upper lobe cavitary changes are also again noted and appear relatively similar in prominence. Known pulmonary nodules and nodular densities are relatively similar in size from cross-sectional imaging 1 month ago. Visualized portion of the upper abdomen again demonstrate a left renal cyst. There is a mild to moderate stool burden throughout visualized loops of colon. Moderate diffuse degenerative changes of the spine. Similar suspected prominent Schmorl's node of T7. CT/CT angio chest PE protocol IMPRESSION: 1. No pulmonary arterial filling defect to suggest pulmonary embolus. 2. Severe cavitary changes of both upper lobe (right more prominent than left) are relatively similar in prominence. 3. Interval development/worsening of more confluent airspace disease within the superior segment of the right lower lobe. This is a nonspecific finding. Infectious, inflammatory and neoplastic processes are within the differential. VTE: negative
--- NOTE | 2020-08-20 16:39 | ED.SOB ---
HPI - SOB/Dyspnea General Chief Complaint: Dyspnea Stated Complaint: ,RECENT -COVID Time Seen by Provider: 08/20/20 16:23 Source: patient Mode of arrival: EMS Limitations: no limitations History of Present Illness HPI Narrative: Patient comes to the emergency room complaining of shortness of breath. Patient was seen here on August 05 , was diagnosed with respiratory distress, COPD, patient was discharged home. Patient states that since he got discharged, he has been feeling gradually worse, now he is unable to walk from room to room without feeling short of breath. Patient states he feels that he is not getting enough air. Patient states he has been coughing but believes cough is at baseline, no sputum production, no fever, no chest pain. Patient states that the main reason he came here is because he feels short of breath. When EMS arrived to the patient's house, his oxygen saturation was 73% on room air MD elicited complaint: shortness of breath Related Data Home Medications Medication Instructions Recorded Confirmed Atrovent HFA 2 puff PO QID 06/01/20 08/05/20 albuterol sulfate 1 amp INHALATION QID PRN 06/01/20 08/05/20 aspirin 1 tab PO DAILY 06/01/20 08/05/20 atorvastatin 1 tab PO DAILY 06/01/20 08/05/20 montelukast 1 tab PO BEDTIME 06/01/20 08/05/20 sildenafil [Viagra] 0.5 - 1 tab PO DAILY PRN 06/01/20 08/05/20 Breo Ellipta 1 puff PO DAILY 08/05/20 08/05/20 bupropion HCl 1 tab PO BID 08/05/20 08/05/20 ferrous sulfate 325 mg PO DAILY 08/05/20 08/05/20 fluticasone propionate 2 spray INTRANASAL DAILY PRN 08/05/20 08/05/20 ketoconazole 1 appl TOPICAL 2XW 08/05/20 08/05/20 multivitamin 1 tab PO DAILY 08/05/20 08/05/20 nicotine (polacrilex) 1 reese PO Q4H 08/05/20 08/05/20 sennosides [senna] 1 - 2 tab PO DAILY PRN 08/05/20 08/05/20 Previous Rx's Medication Instructions Recorded ipratropium 0.5 mg-albuterol 3 mg 3 ml INHALATION QID 30 Days #360 ml 06/28/20 (2.5 mg base)/3 mL nebulization soln dextromethorphan-guaifenesin 5 ml PO Q4H PRN #100 ml 08/06/20 levofloxacin 750 mg PO Q24H 7 Days #7 tab 08/06/20 prednisone 40 mg PO DAILY 5 Days #10 tab 08/06/20 Allergies Allergy/AdvReac Type Severity Reaction Status Date / Time morphine [MORPHINE] Allergy Mild VOMITING Verified 06/02/20 11:30 Review of Systems Review of Systems: Constitutional : No Weight loss, No Fever, No Chills, No Night Sweats, No Fatigue, No Malaise ENT/Mouth : No Hearing loss, No Ear Pain, No Nasal Congestion, No Sinus Pain, No Hoarseness, No sore throat, No Rhinorrhea, No Swallowing Difficulty Eyes: No Eye Pain, No Swelling, No Redness, No Foreign Body, No Discharge, No Vision Changes Cardiovascular : No Chest Pain, No SOB, No Dyspnea on Exertion, No Orthopnea, No Edema, No Palpitations Respiratory : Mild chronic Cough, No Sputum, No Wheezing, No Smoke Exposure, complaining of dyspnea Gastrointestinal : No Nausea, No Vomiting, No Diarrhea, No Constipation, No abdominal Pain, No Hematochezia, No Melena Genitourinary : no irregular bleeding, No Dysuria, No Urinary Frequency, No Hematuria, No Urinary Incontinence, No Urgency, No Flank Pain, No Urinary Flow Changes, No Hesitancy Musculoskeletal : No joint pain, No Myalgias, No Joint Swelling Skin : No Skin Lesions, No rash Neuro : No Weakness, No Numbness, No Paresthesias, No Loss of Consciousness, No Dizziness, No Headache Psych : No Anxiety/Panic, No Depression, No SI/HI/AH/VH, No Social Issues, Heme/Lymph: No Bruising, No Bleeding,No Lymphadenopathy Endocrine : No Polyuria, No Polydipsia, No Temperature Intolerance [facility] Past Medical History Medical History Asthma Bronchiectasis with (acute) exacerbation COPD (chronic obstructive pulmonary disease) COPD (chronic obstructive pulmonary disease) COPD exacerbation Latent tuberculosis Mycobacteria, atypical Pneumonia Family History Family History Other Family history non-contributory Social History Social History Household Members: Spouse Housing: Apartment Alcohol intake: never Smoking Status: Former smoker Second Hand Smoke Exposure: No Substance Use Type: Crack/Cocaine Advance Directives: No Advance Directives Information Provided: Yes service: No Current occupational status: retired Physical Exam Vital Signs: Vital Signs: Last Vital Signs Temp 98.7 F 08/20/20 19:04 Pulse 128 H 08/20/20 19:04 Resp 20 08/20/20 19:04 BP 94/50 L 08/20/20 19:04 Pulse Ox 99 08/20/20 19:04 Body Mass Index 16.0 Appearance: Alert. Oriented X3. No acute distress. Anxious Eyes: Pupils equal, round and reactive to light. ENT: Pharynx normal. Neck: Normal inspection. Neck supple. No lymph nodes noted. No crepitus CVS: Normal heart rate and rhythm. Pulses normal. Normal S1 and S2 Respiratory: Tachypneic, respiratory rate 20 5-30, oxygen saturation on room air 88%, bilaterally decreased breath sounds, more noticeably on the, no wheezing Abdomen: Soft and nontender. No rigidity. No distention. good BS x4 Skin: Skin warm and dry. Normal skin color. Normal skin turgor. Extremities: No lower extremity edema. No lower extremity edema. No Lacerations. No Rash Neuro: Oriented X 3. No motor deficit. No sensory deficit. Moving all extermities. No slurred speech. Course Course Course Narrative: Patient has been on 4 L oxygen, without oxygen his oxygen dropped to the low 80s. While patient was on 4 L, patient's oxygen saturation dropped to the low 80s while he was trying to urinate. Patient was put on a non-rebreather, oxygen saturation improved immediately. Now he is back on 4 L nasal cannula. Patient remains tachycardic. CT scan is negative for PE. I discussed the labs vitals and physical exam with our hospitalist, patient being admitted. MDM - SOB/Dyspnea Lab Data Result diagrams: 08/20/20 16:49 08/20/20 16:49 Labs: Lab Results 08/20/20 08/20/20 08/20/20 Range/Units 16:49 16:49 16:49 WBC 15.2 H (4.8-10.8) X10*3/uL RBC 4.18 L (4.60-5.80) X10*6/uL Hgb 11.8 L (14.0-18.0) g/dl Hct 37.3 L (42-52) % MCV 89.2 (80-98) fL MCH 28.2 (27.0-33.0) pg MCHC 31.6 (31.0-36.0) g/dl RDW 15.8 (11.0-16.0) % Plt Count 578 H (160-400) X10*3/uL MPV 8.9 L (9.4-12.4) fL Immature Gran % (Auto) 0.5 H (0.0-0.4) % Neut % (Auto) 82.6 H (45-73) % Lymph % (Auto) 5.9 L (20-40) % [place] % (Auto) 9.5 (2-11) % Eos % (Auto) 1.0 (0-4) % Baso % (Auto) 0.5 (0-2) % Lymph # (Auto) 0.9 L (1.2-4.9) X10*3/uL [place] # (Auto) 1.5 H (0.1-1.2) X10*3/uL Eos # (Auto) 0.2 (0.0-0.4) X10*3/uL Baso # (Auto) 0.1 (0.0-0.2) X10*3/uL Abs Immat Gran (auto) 0.07 H (0.00-0.03) X10*3/uL Absolute Neuts (auto) 12.6 H (2.0-8.3) X10*3/uL Absolute Nucleated RBC 0.000 (0.0-0.012) X10*3/uL Nucleated RBC % (auto) 0.0 (0.0-0.2) /100WBC D-Dimer NG/ML Sodium 135 (135-145) mmol/L Potassium 4.7 (3.3-5.1) mmol/l Chloride 89 L (96-108) mmol/L Carbon Dioxide 39 H (22-29) mmol/L Anion Gap 12 (12-20) BUN 8 L (9-16) mg/dL Creatinine 0.65 (0.5-1.4) mg/dL Estim Creat Clear Calc 66.7 Estimated GFR > 60 Random Glucose 143 H (60-115) mg/dL Lactic Acid (0.5-2.0) mmol/L Calcium 8.4 (8.4-10.2) mg/dL Total Bilirubin 0.2 (0.0-1.0) mg/dL Direct Bilirubin 0.2 (0.0-0.5) mg/dL AST 18 (5-37) U/L ALT 19 (0-40) U/L Alkaline Phosphatase 156 H D (39-117) U/L Troponin I High Sens < 3.5 (<3.5-35.0) ng/L B-Natriuretic Peptide (<100) pg/mL Total Protein 7.2 (6.5-8.0) g/dL Albumin 3.6 (3.5-5.0) g/dL Urine Color Urine Appearance Urine pH (5.0-8.0) Ur Specific [place] (1.005-1.025) Urine Protein (NEG-TRACE) MG/DL Urine Glucose (UA) (NEG) MG/DL Urine Ketones (NEG) MG/DL Urine Blood (NEG) Urine Nitrite (NEG) Ur Leukocyte Esterase (NEG) 08/20/20 08/20/20 08/20/20 Range/Units 16:49 16:49 16:49 WBC (4.8-10.8) X10*3/uL RBC (4.60-5.80) X10*6/uL Hgb (14.0-18.0) g/dl Hct (42-52) % MCV (80-98) fL MCH (27.0-33.0) pg MCHC (31.0-36.0) g/dl RDW (11.0-16.0) % Plt Count (160-400) X10*3/uL MPV (9.4-12.4) fL Immature Gran % (Auto) (0.0-0.4) % Neut % (Auto) (45-73) % Lymph % (Auto) (20-40) % [place] % (Auto) (2-11) % Eos % (Auto) (0-4) % Baso % (Auto) (0-2) % Lymph # (Auto) (1.2-4.9) X10*3/uL [place] # (Auto) (0.1-1.2) X10*3/uL Eos # (Auto) (0.0-0.4) X10*3/uL Baso # (Auto) (0.0-0.2) X10*3/uL Abs Immat Gran (auto) (0.00-0.03) X10*3/uL Absolute Neuts (auto) (2.0-8.3) X10*3/uL Absolute Nucleated RBC (0.0-0.012) X10*3/uL Nucleated RBC % (auto) (0.0-0.2) /100WBC D-Dimer 2662 NG/ML Sodium (135-145) mmol/L Potassium (3.3-5.1) mmol/l Chloride (96-108) mmol/L Carbon Dioxide (22-29) mmol/L Anion Gap (12-20) BUN (9-16) mg/dL Creatinine (0.5-1.4) mg/dL Estim Creat Clear Calc Estimated GFR Random Glucose (60-115) mg/dL Lactic Acid 1.0 (0.5-2.0) mmol/L Calcium (8.4-10.2) mg/dL Total Bilirubin (0.0-1.0) mg/dL Direct Bilirubin (0.0-0.5) mg/dL AST (5-37) U/L ALT (0-40) U/L Alkaline Phosphatase (39-117) U/L Troponin I High Sens (<3.5-35.0) ng/L B-Natriuretic Peptide 65 (<100) pg/mL Total Protein (6.5-8.0) g/dL Albumin (3.5-5.0) g/dL Urine Color Urine Appearance Urine pH (5.0-8.0) Ur Specific [place] (1.005-1.025) Urine Protein (NEG-TRACE) MG/DL Urine Glucose (UA) (NEG) MG/DL Urine Ketones (NEG) MG/DL Urine Blood (NEG) Urine Nitrite (NEG) Ur Leukocyte Esterase (NEG) 08/20/20 Range/Units 19:07 WBC (4.8-10.8) X10*3/uL RBC (4.60-5.80) X10*6/uL Hgb (14.0-18.0) g/dl Hct (42-52) % MCV (80-98) fL MCH (27.0-33.0) pg MCHC (31.0-36.0) g/dl RDW (11.0-16.0) % Plt Count (160-400) X10*3/uL MPV (9.4-12.4) fL Immature Gran % (Auto) (0.0-0.4) % Neut % (Auto) (45-73) % Lymph % (Auto) (20-40) % [place] % (Auto) (2-11) % Eos % (Auto) (0-4) % Baso % (Auto) (0-2) % Lymph # (Auto) (1.2-4.9) X10*3/uL [place] # (Auto) (0.1-1.2) X10*3/uL Eos # (Auto) (0.0-0.4) X10*3/uL Baso # (Auto) (0.0-0.2) X10*3/uL Abs Immat Gran (auto) (0.00-0.03) X10*3/uL Absolute Neuts (auto) (2.0-8.3) X10*3/uL Absolute Nucleated RBC (0.0-0.012) X10*3/uL Nucleated RBC % (auto) (0.0-0.2) /100WBC D-Dimer NG/ML Sodium (135-145) mmol/L Potassium (3.3-5.1) mmol/l Chloride (96-108) mmol/L Carbon Dioxide (22-29) mmol/L Anion Gap (12-20) BUN (9-16) mg/dL Creatinine (0.5-1.4) mg/dL Estim Creat Clear Calc Estimated GFR Random Glucose (60-115) mg/dL Lactic Acid (0.5-2.0) mmol/L Calcium (8.4-10.2) mg/dL Total Bilirubin (0.0-1.0) mg/dL Direct Bilirubin (0.0-0.5) mg/dL AST (5-37) U/L ALT (0-40) U/L Alkaline Phosphatase (39-117) U/L Troponin I High Sens (<3.5-35.0) ng/L B-Natriuretic Peptide (<100) pg/mL Total Protein (6.5-8.0) g/dL Albumin (3.5-5.0) g/dL Urine Color YELLOW Urine Appearance CLEAR Urine pH 6.5 (5.0-8.0) Ur Specific [place] 1.015 (1.005-1.025) Urine Protein NEG (NEG-TRACE) MG/DL Urine Glucose (UA) NEG (NEG) MG/DL Urine Ketones NEG (NEG) MG/DL Urine Blood NEG (NEG) Urine Nitrite NEG (NEG) Ur Leukocyte Esterase NEG (NEG) Imaging Data Chest x-ray: Radiologist's impression: FINDINGS: The lungs are well inflated. There is volume loss to both upper lobes. There is a thick-walled cavity seen at the right lung apex that appears unchanged. There is surrounding right bronchial wall thickening and bronchial dilatation that is unchanged. There is pleural and parenchymal scarring in the peripheral left upper lobe that is unchanged. There are multiple small calcified pulmonary nodules that appear unchanged. The cardiac silhouette does not appear enlarged. There is abnormal appearance to the right superior mediastinum/hilar region is increased in size and density. This appears unchanged. There is no pleural effusion or pneumothorax. XR/XR chest 1V IMPRESSION: Hyperinflation. Bilateral upper lobe volume loss. Stable small right apical thick walled cavity formation and adjacent bronchiectasis and bronchial wall thickening and left upper lobe peripheral pleural and parenchymal scarring from previous recent exams. ECG Data Attestation: I personally reviewed and interpreted this ECG as follows: (Sinus tachycardia, heart rate 149, no ST segment depressions, no T-wave inversions, QTC 412) Discharge Plan Discharge Clinical Impression: Pneumonia Patient Disposition: Admitted As Inpatient Prescriptions: No Action ipratropium-albuterol 0.5 mg-3 mg(2.5 mg base)/3 mL solution for nebulization 3 ml inhalation QID 30 Days Qty: 360 RF: 6 atorvastatin 20 mg tablet 1 tab PO DAILY RF: 0 albuterol sulfate 2.5 mg /3 mL (0.083 %) solution for nebulization 1 amp inhalation QID PRN (Reason: Wheezing) RF: 0 aspirin 81 mg tablet,delayed release (DR/EC) 1 tab PO DAILY RF: 0 sildenafil [Viagra] 100 mg tablet 0.5 - 1 tab PO DAILY PRN (Reason: Erectile Dysfunction) RF: 0 montelukast 10 mg tablet 1 tab PO BEDTIME RF: 0 Atrovent HFA 17 mcg/actuation HFA aerosol inhaler 2 puff PO QID RF: 0 multivitamin Tablet 1 tab PO DAILY RF: 0 bupropion HCl 150 mg tablet sustained-release 12 hr 1 tab PO BID RF: 0 sennosides [senna] 8.6 mg tablet 1 - 2 tab PO DAILY PRN (Reason: Constipation) RF: 0 ketoconazole 2 % shampoo 1 appl topical 2XW RF: 0 ferrous sulfate 325 mg (65 mg iron) tablet 325 mg PO DAILY RF: 0 fluticasone propionate 50 mcg/actuation spray,suspension 2 spray intranasal DAILY PRN (Reason: Nasal Congestion) RF: 0 nicotine (polacrilex) 2 mg lozenge 1 reese PO Q4H RF: 0 Breo Ellipta 200-25 mcg/dose blister with device 1 puff PO DAILY RF: 0 dextromethorphan-guaifenesin 10-100 mg/5 mL Syrup 5 ml PO Q4H PRN (Reason: cough ) Qty: 100 RF: 0 levofloxacin 750 mg tablet 750 mg PO Q24H 7 Days Qty: 7 RF: 0 prednisone 20 mg tablet 40 mg PO DAILY 5 Days Qty: 10 RF: 0
[2020-08-20 17:01] LABS: MANUAL DIFF FLAG NO
[2020-08-20 17:03] LABS: Basophils Absolute Auto 0.1 X10*3/uL (0.0-0.2); Basophils Percent Auto 0.5 % (0-2); Eosinophils Absolute Auto 0.2 X10*3/uL (0.0-0.4); Hematocrit 37.3 % (42-52); Hemoglobin 11.8 g/dl (14.0-18.0); Imm Gran Abs Auto 0.07 X10*3/uL (0.00-0.03); Imm Gran Pct Auto 0.5 % (0.0-0.4); Lymphocytes Absolute Auto 0.9 X10*3/uL (1.2-4.9); Lymphocytes Percent Auto 5.9 % (20-40); Mean Corpuscular HGB Conc 31.6 g/dl (31.0-36.0); Mean Corpuscular Hemoglobin 28.2 pg (27.0-33.0); Mean Corpuscular Volume 89.2 fL (80-98); Mean Platelet Volume 8.9 fL (9.4-12.4); Monocytes Absolute Auto 1.5 X10*3/uL (0.1-1.2); Monocytes Percent Auto 9.5 % (2-11); Neutrophils Absolute Auto 12.6 X10*3/uL (2.0-8.3); Neutrophils Percent Auto 82.6 % (45-73); Platelet Count 578 X10*3/uL (160-400); Red Blood Count 4.18 X10*6/uL (4.60-5.80); Red Cell Distribution Width 15.8 % (11.0-16.0); White Blood Count 15.2 X10*3/uL (4.8-10.8)
[2020-08-20 17:14] LABS: D Dimer 2662 NG/ML
[2020-08-20] MEDS: Piperacillin Sodium/Tazobactam 3.375 GM in 0.9 % Sodium Chloride 50 ML IV (17:18)
[2020-08-20] MEDS: 0.9 % Sodium Chloride 1,000 ML 999 ML IVCONT (17:18)
[2020-08-20] MEDS: Acetaminophen 325 MG TABLET 650 MG PO (17:19)
[2020-08-20] MEDS: 0.9 % Sodium Chloride 500 ML 999 ML IVCONT (17:20)
[2020-08-20 17:27] LABS: Alanine Aminotransferase 19 U/L (0-40); Albumin Level 3.6 g/dL (3.5-5.0); Alkaline Phosphatase 156 U/L (39-117); Anion Gap 12 (12-20); Aspartate Amino Transferase 18 U/L (5-37); Bilirubin Direct 0.2 mg/dL (0.0-0.5); Bilirubin Total 0.2 mg/dL (0.0-1.0); Blood Urea Nitrogen 8 mg/dL (9-16); Calcium 8.4 mg/dL (8.4-10.2); Carbon Dioxide 39 mmol/L (22-29); Chloride 89 mmol/L (96-108); Creatinine Clr Calc Pharmacy 66.7; Estimated Glomerular Filt Rate > 60; Glucose Random 143 mg/dL (60-115); Potassium 4.7 mmol/l (3.3-5.1); Sodium 135 mmol/L (135-145); Total Protein 7.2 g/dL (6.5-8.0)
[2020-08-20 17:34] LABS: B Type Natriuretic Peptide 65 pg/mL (<100); Troponin-I High Sensitivity < 3.5 ng/L (<3.5-35.0)
[2020-08-20 17:57] VITALS: PULSE 137; RESP 24; O2SAT 100
--- NOTE | 2020-08-20 17:58 | PC.NURSE ---
BRIEF PERIOD ON HF02 SATS DROPED TO 80 WHILE EXERTING HIMSELF. PLACED BACK ON NC AT 6 AFTER 10 MINUTES W/O PROBLEMS
[2020-08-20] MEDS: iohexoL 350 MG/ML 100 ML INFUS..BTL IV (18:14)
[2020-08-20 19:04] VITALS: BP 94/50; PULSE 128; RESP 20; TEMP 37.1; O2SAT 99
[2020-08-20 19:13] LABS: Glucose Urine UA NEG (NEG); Leukocyte Esterase Urine NEG (NEG); Nitrite Urine NEG (NEG); PH 6.5 (5.0-8.0); Specific Gravity - Urine 1.015 (1.005-1.025); Urine Blood NEG (NEG); Urine Ketones NEG (NEG); Urine Protein NEG (NEG-TRACE)
[2020-08-20 19:14] LABS: Appearance Urine CLEAR; Color Urine YELLOW
[2020-08-20 20:00] VITALS: BP 108/69; PULSE 114; RESP 24; O2SAT 99
[2020-08-20 20:20] LABS: COVID-19 Test Negative (Negative); IDNOW Serial# 9DD0AD1C
--- NOTE | 2020-08-20 21:07 | P.EN_ITS ---
Event Note Date of Service: 08/20/20 Event Note: Patient seen and examined and case discussed with Laurie Sosa REFRIGERATION TECH on the date of service 08/20/2020. 65 year old man with hx of COPD and prior TB and recent hospital stay this month for COPD exac presented with dyspnea and cough and is being treated with antibiotics for presumed pneumonia. Exam showed coarse breath sounds bilaterally, otherwise he is clinically stable. Agree with antibiotics and pulm consult. Remainder as per REFRIGERATION TECH note.
--- NOTE | 2020-08-20 21:31 | HP_ITS ---
DATE OF SERVICE: 08/20/2020 PRIMARY CARE PROVIDER: Not listed. CHIEF COMPLAINT: Shortness of breath. HISTORY OF PRESENT ILLNESS: 65-year-old man with a history of emphysema and bronchiectasis, presents with complaints of shortness of breath that started today. He reported that when he would cough, he would feel like he was out of breath and that scared him and he decided to come to the ER to be evaluated. He denies any fever, chills, nausea, vomiting, diarrhea, sick contacts. COVID PCR in the ER was negative. Chest CTA was obtained, which showed no PE, but did show severe cavitary changes of both upper lobes and interval development/worsening of airspace disease within the right lower lobe. He was given a dose of Zosyn, and 2 L of IV fluids. He was not noted to be hypoxic today. He was discharged from [facility] on August 06. At that time, he was admitted for pneumonia and COPD and sent home with oral antibiotics. He will be admitted for further management and treatment of COPD exacerbation. PAST MEDICAL HISTORY: 1. Asthma. 2. COPD. 3. Latent tuberculosis. 4. Mycobacteria. 5. Anxiety. 6. Depression. 7. History of DJD. 8. Seborrheic dermatitis. 9. Hepatitis C. FAMILY HISTORY: Denies any cardiac disease. SOCIAL HISTORY: Lives with his . He reported that he quit smoking and quit drinking 4 months ago, but he is still using cocaine, which he used today. ALLERGIES: TO MORPHINE. MEDICATIONS: 1. Albuterol sulfate q.i.d. p.r.n. for shortness of breath. 2. Aspirin 1 tab p.o. daily. 3. Atorvastatin 1 tab p.o. daily. 4. Atrovent 2 puffs p.o. q.i.d. 5. Breo Ellipta 1 puff p.o. daily. 6. Bupropion 1 tab p.o. b.i.d. 7. Guaifenesin 5 mL p.o. q.4 hours p.r.n. 8. Ferrous sulfate 25 mg daily. 9. Fluticasone propionate 2 sprays intranasally daily p.r.n. 10. Ipratropium albuterol 3 mL inhalation q.i.d. 11. Ketoconazole 1 application topically 2 times a week. 12. Levofloxacin 750 mg p.o. q.24 hours. 13. Montelukast sodium 1 tab p.o. at bedtime. 14. Multivitamin 1 tab p.o. daily. 15. Nicotine lozenges. 16. Prednisone 40 mg for 5 days. 17. Sennoside 1 to 2 tabs p.o. daily p.r.n. 18. Viagra 0.5 to 1 tab p.o. daily p.r.n. REVIEW OF SYSTEMS: CONSTITUTIONAL: Denies any recent fever, chills, or decrease in appetite. RESPIRATORY: See HPI. CARDIOVASCULAR: Denies any chest pain, orthopnea, PND, or edema. GASTROINTESTINAL: Denies any dysphagia, abdominal pain, nausea, vomiting, or diarrhea. GENITOURINARY: Denies any dysuria, frequency, or hematuria. MUSCULOSKELETAL: Denies any joint pain or swelling. NEUROPSYCH: Denies any weakness or seizures. All other systems are reviewed and are negative. PHYSICAL EXAMINATION: CONSTITUTIONAL: Resting in bed, appearing in no acute distress. VITAL SIGNS: 98.7, 128, 20, 94/59, and 99% on 2 L. SKIN: Intact without rashes or open sores. HEENT: Head is normocephalic, atraumatic. Eyes, pupils are PERRLA. Sclerae anicteric. Mouth and throat: Mucous membranes are intact and moist. NECK: Supple. No lymphadenopathy. No JVD noted. CHEST: Clear with some areas diminished and very mild wheezes. HEART: Regular rate and rhythm. Clear S1, S2. No murmurs, rubs, or gallops. ABDOMEN: Positive bowel sounds. Soft, nontender. No hepatomegaly or splenomegaly noted. NEURO: The patient is alert and oriented x3. Cranial nerves II through XII are grossly intact without focal deficits. LABORATORY DATA: Coronavirus PCR negative. WBC 15.2, hemoglobin 11.8, hematocrit 37.3, platelets 578. Sodium is 135, potassium 4.7, chloride is 89, bicarb is 39, BUN is 8, creatinine is 0.65. ASSESSMENT AND PLAN: A 65-year-old man, who is being admitted with chronic obstructive pulmonary disease exacerbation and clinical pneumonia. 1. Chronic obstructive pulmonary disease exacerbation. We will treat with ipratropium. Tachycardia, albuterol. Continue supplemental oxygen. Tachycardia and tachypnea are related to breathing from respiratory treatments. 2. Clinical pneumonia/bronchitis. We will treat with Rocephin and azithromycin, pulmonology consultation for what appears to be worsening disease in the upper areas of the lungs. 3. Hyperlipidemia. Continue aspirin and statin. 4. Depression. Continue home medications. 5. Deep vein thrombosis prophylaxis with Lovenox. 6. Case discussed with Dr. Yuen. 7. Full code. Laurie Sosa NP Attending addendum: Patient seen and examined and case discussed with ALLAN Sosa on date of service. I reviewed and confirmed the findings above and collaborated on the plan of care. For more detail please see my progress note addendum written at the time of admission. Chidi Yuen MD JR/NIYA / [id number] MTDD
[2020-08-20 21:46] VITALS: BP 111/67; PULSE 112; RESP 19; TEMP 36.7; O2SAT 100
[2020-08-20] MEDS: Enoxaparin Sodium 40 MG/0.4 ML SYRINGE SUBCUT (22:15)
[2020-08-20] MEDS: Montelukast Sodium 10 MG TABLET PO (22:15)
[2020-08-20] MEDS: cefTRIAXone sodium 1 GM in 0.9 % Sodium Chloride 50 ML IV (22:15)
[2020-08-20] MEDS: Azithromycin 500 MG in 0.9 % Sodium Chloride 250 ML 125 MG IV (22:46)
[2020-08-21] VITALS: BP 98/59; PULSE 119; RESP 18; TEMP 37; O2SAT 100
[2020-08-21] MEDS: 0.9 % Sodium Chloride Flush 3 ML SYRINGE IVFLUSH ×2 (00:03→08:53)
[2020-08-21] MEDS: levalbuterol HCL 1.25 MG/3 ML VIAL.NEB INHALE (02:47)
[2020-08-21 02:50] VITALS: PULSE 126; O2SAT 96
[2020-08-21] MEDS: Throat Lozenge, Medicated LOZENGE 1 LOZENGE MUCOUS MEM (03:05)
[2020-08-21 04:00] VITALS: BP 90/63; PULSE 128; RESP 20; TEMP 36.7; O2SAT 93
[2020-08-21 05:42] LABS: Basophils Percent Auto 0.4 % (0-2); Hematocrit 36.4 % (42-52); Hemoglobin 11.4 g/dl (14.0-18.0); Imm Gran Abs Auto 0.04 X10*3/uL (0.00-0.03); Imm Gran Pct Auto 0.4 % (0.0-0.4); Lymphocytes Absolute Auto 0.5 X10*3/uL (1.2-4.9); MANUAL DIFF FLAG SCAN; Mean Corpuscular HGB Conc 31.3 g/dl (31.0-36.0); Mean Corpuscular Hemoglobin 28.1 pg (27.0-33.0); Mean Corpuscular Volume 89.9 fL (80-98); Mean Platelet Volume 10.4 fL (9.4-12.4); Monocytes Absolute Auto 0.1 X10*3/uL (0.1-1.2); Monocytes Percent Auto 0.8 % (2-11); Neutrophils Absolute Auto 9.3 X10*3/uL (2.0-8.3); Neutrophils Percent Auto 93.4 % (45-73); Platelet Count 535 X10*3/uL (160-400); Red Blood Count 4.05 X10*6/uL (4.60-5.80); Red Cell Distribution Width 15.7 % (11.0-16.0); SCAN SMEAR FLAG 1
[2020-08-21 05:53] LABS: Anion Gap 16 (12-20); Blood Urea Nitrogen 7 mg/dL (9-16); Calcium 8.2 mg/dL (8.4-10.2); Carbon Dioxide 35 mmol/L (22-29); Chloride 89 mmol/L (96-108); Creatinine Clr Calc Pharmacy 69.9; Estimated Glomerular Filt Rate > 60; Glucose Random 143 mg/dL (60-115); Potassium 4.9 mmol/l (3.3-5.1); Sodium 135 mmol/L (135-145)
[2020-08-21 06:12] LABS: SLIDE REVIEW VERIFIED
--- NOTE | 2020-08-21 07:39 | ECG_ITS ---
Test Reason : SOB Blood Pressure : / mmHG Vent. Rate : 108 BPM Atrial Rate : 108 BPM P-R Int : 128 ms QRS Dur : 084 ms QT Int : 350 ms P-R-T Axes : 073 -49 060 degrees QTc Int : 469 ms Sinus tachycardia Right atrial enlargement Left axis deviation Abnormal ECG When compared with ECG of 05-AUG-2020 11:24, Premature atrial complexes are no longer Present Referred By: Miguelina Ontiveros Electronically Signed By:CRISTINA SOLORZANO
[2020-08-21] MEDS: buPROPion HCl XL 300 MG TAB.ER.24H PO (08:52)
[2020-08-21] MEDS: Aspirin Enteric Coated 81 MG TABLET.DR PO (08:52)
[2020-08-21] MEDS: Atorvastatin Calcium 20 MG TABLET PO (08:52)
[2020-08-21] MEDS: Multivitamin TABLET 1 TAB PO (08:52)
[2020-08-21 08:55] VITALS: BP 112/70; PULSE 110; RESP 18; TEMP 36.4; O2SAT 97
--- NOTE | 2020-08-21 09:39 | MHC.CM.PN ---
CM was unable to reach Patient by phone, but spoke with /Angelina @ [phone]. Patient lives in an apartment with his and he requires no DME and had no prior services. Home no services is the goal for dc and CM has initiated and will follow for dc planning. IMM addressed with Angelina and will be mailed certified mail to her and a copy has been placed on the chart. PCP ius Dr. Eliza Lorenzana. Patient admits to using Cocaine and may benefit from a Care Tram Consult.
--- NOTE | 2020-08-21 09:55 | PC.NURSE ---
Addendum entered by Kenna Ceils RN 08/21/20 10:31: PATIENT WANTING TO LEAVE AMA, DR. TEMPLETON AND DR. GRIFFITH MADE AWARE. PATIENT ALERT AND ORIENTED, AWARE OF RISKS OF LEAVING, IV AND TELE PACK REMOVED. PATIENT SIGNED AMA PAPERWORK WITH SECOND RN GLORY AND CHARTER BOAT CAPTAIN TATI. Original Note: AT 755AM PATIENT VERY AGITATED, RESTLESS, AND RESISTIVE TO CARE. PATIENT WITH NPO DIET AND UPSET THAT HE CANNOT HAVE COFFEE. PATIENT REFUSING VITAL SIGNS, MORNING MEDS, AND EKG THAT WAS TO BE PERFORMED. PATIENT WANTING TO LEAVE AMA. DR. TEMPLETON NOTIFIED AND AT BEDSIDE WITH CHARTER BOAT CAPTAIN. PATIENT EDUCATED ON SAFETY MEASURES. PATIENT REFUSING BRONCHOSCOPY, DR. GRIFFITH NOTIFIED AND AT BEDSIDE. PATIENT EDUCATED AND WILLING TO HAVE VITAL SIGNS DONE, WILLING TO TAKE MORNING MEDS, AND WILLING TO PERFORM EKG.
--- NOTE | 2020-08-21 10:14 | PM.CNPUL ---
History of Present Illness History of Present Illness Consult date: 08/21/20 Chief complaint: Copd Exacerbation PMFSH Past Medical History Medical History Asthma Bronchiectasis with (acute) exacerbation COPD (chronic obstructive pulmonary disease) COPD (chronic obstructive pulmonary disease) COPD exacerbation Latent tuberculosis Mycobacteria, atypical Pneumonia Family History Family History Other Family history non-contributory Social History Social History Household Members: Spouse Housing: Apartment Do you presently have visiting nurse or other home services: No Alcohol intake: unknown Smoking Status: Former smoker Second Hand Smoke Exposure: No Use of substances other than those prescribed or required for medical reasons: Yes Substance Use Type: Crack/Cocaine Substance Use Frequency: Occasionally Last Used Substance: Hours (ago) Currently Displaying Signs/Symptoms of Drug Intoxication Withdrawal: No Any prior treatment program specific to substance use: No Have you been hit, kicked, punched, or otherwise hurt by someone within the past year? If so, by whom?: No Do you feel safe in your current relationship?: No Is there a partner from a previous relationship who is making you feel unsafe now?: No Are you made to feel afraid or neglected: No Advance Directives: No Advance Directives Information Provided: Yes Do you have thoughts of harming others: None Do you have a plan to hurt others: No Plan Recently lost weight without trying: Yes service: No Current occupational status: disabled Meds Allergies Allergy/AdvReac Type Severity Reaction Status Date / Time morphine [MORPHINE] Allergy Mild VOMITING Verified 06/02/20 11:30 Home Medications Medication Instructions Recorded Confirmed Type Atrovent HFA 2 puff PO QID 06/01/20 08/20/20 History albuterol sulfate 1 amp INHALATION QID PRN 06/01/20 08/20/20 History aspirin 1 tab PO DAILY 06/01/20 08/20/20 History atorvastatin 1 tab PO DAILY 06/01/20 08/20/20 History montelukast 1 tab PO BEDTIME 06/01/20 08/20/20 History sildenafil [Viagra] 0.5 - 1 tab PO DAILY PRN 06/01/20 08/20/20 History Breo Ellipta 1 puff PO DAILY 08/05/20 08/20/20 History bupropion HCl 1 tab PO BID 08/05/20 08/20/20 History ferrous sulfate 325 mg PO DAILY 08/05/20 08/20/20 History fluticasone propionate 2 spray INTRANASAL DAILY PRN 08/05/20 08/20/20 History ketoconazole 1 appl TOPICAL 2XW 08/05/20 08/20/20 History multivitamin 1 tab PO DAILY 08/05/20 08/20/20 History nicotine (polacrilex) 1 reese PO Q4H 08/05/20 08/20/20 History sennosides [senna] 1 - 2 tab PO DAILY PRN 08/05/20 08/20/20 History Physical Exam Vital Signs: Vital Signs: Last Vital Signs Temp 97.6 F 08/21/20 08:55 Pulse 110 H 08/21/20 08:55 Resp 18 08/21/20 08:55 BP 112/70 08/21/20 08:55 Pulse Ox 97 08/21/20 08:55 Body Mass Index 16.0 Results Laboratory Findings CBC and BMP: 08/21/20 04:06 08/21/20 04:06 ABG, PT/INR, D-dimer: PT/INR, D-dimer D-Dimer 2662 NG/ML 08/20/20 16:49 Abnormal lab findings: Abnormal Labs 08/20/20 08/20/20 08/21/20 16:49 16:49 04:06 WBC 15.2 H RBC 4.18 L 4.05 L Hgb 11.8 L 11.4 L Hct 37.3 L 36.4 L Plt Count 578 H 535 H MPV 8.9 L Immature Gran % (Auto) 0.5 H Neut % (Auto) 82.6 H 93.4 H Lymph % (Auto) 5.9 L 5.0 L [place] % (Auto) 0.8 L Lymph # (Auto) 0.9 L 0.5 L [place] # (Auto) 1.5 H Abs Immat Gran (auto) 0.07 H 0.04 H Absolute Neuts (auto) 12.6 H 9.3 H Chloride 89 L Carbon Dioxide 39 H BUN 8 L Random Glucose 143 H Calcium Alkaline Phosphatase 156 H D 12/30/20 04:06 WBC RBC Hgb Hct Plt Count MPV Immature Gran % (Auto) Neut % (Auto) Lymph % (Auto) [place] % (Auto) Lymph # (Auto) [place] # (Auto) Abs Immat Gran (auto) Absolute Neuts (auto) Chloride 89 L Carbon Dioxide 35 H BUN 7 L Random Glucose 143 H Calcium 8.2 L Alkaline Phosphatase
[2020-08-21 10:40] VITALS: BMI 16.0
--- NOTE | 2020-08-21 10:40 | P.CDIC_ITS ---
CDI Concurrent Query Service Date: 08/21/20 Documentation Clarification: Please clarify if you are treating a proba ble/suspected/likely or confirmed: BMI Protein calorie malnutrition, mild, moderate or severe Please specify if known or other Provider Response: Moderate Protein-Calorie Malnutrition PLEASE DO NOT DELETE/MODIFY EXISTING CONTENT Additional information is needed in order to code to the highest accuracy and appropriate Severity of Illness (SOI). Please clarify the information noted below in your progress notes and discharge summary. Risk Factors/Clinical Indicators/Treatments BMI 16.0 Nutrition assessment notes non-severe malnourished. CDS: Carole Chirinos CCS, CDIS Contact Number: [phone] Please Review the information above and exercise your independent professional judgment in responding to the query. If you concur, pleas document in the PROGRESS NOTES and DISCHARGE SUMMARY. If you do not agree with the query, please document in the query above. THIS QUERY IS PART OF THE PERMANENT MEDICAL RECORD
--- NOTE | 2020-08-21 10:43 | MHC.CLN ---
PT IS MODERATELY MALNOURISHED CURRENTLY NPO RECOMMEND ADDING ENSURE BID TO INCREASE KCALS WHEN DIET ADVANCED SEE ALSO CLINICAL NUTRITION ASSESSMENT
--- NOTE | 2020-08-21 11:04 | P.DS_ITS ---
DS: Providers Provider Date of admission: 08/20/20 20:31 Primary care physician: Unknown Physician Consults: 08/20/20 21:41 Consult to Pulmonology Routine Consulting Provider: Guillermo Sosa Reason for consultation: Severe cavitary changes of both upper lobe Has provider been notified: No DS: Diagnosis Discharge Diagnosis (1) Pneumonia: Status: Acute (2) COPD exacerbation: Status: Inactive DS: Medications Discharge Medications Home Medications: Home Medications Medication Instructions Recorded Confirmed Atrovent HFA 2 puff PO QID 06/01/20 08/20/20 albuterol sulfate 1 amp INHALATION QID PRN 06/01/20 08/20/20 aspirin 1 tab PO DAILY 06/01/20 08/20/20 atorvastatin 1 tab PO DAILY 06/01/20 08/20/20 montelukast 1 tab PO BEDTIME 06/01/20 08/20/20 sildenafil [Viagra] 0.5 - 1 tab PO DAILY PRN 06/01/20 08/20/20 Breo Ellipta 1 puff PO DAILY 08/05/20 08/20/20 bupropion HCl 1 tab PO BID 08/05/20 08/20/20 ferrous sulfate 325 mg PO DAILY 08/05/20 08/20/20 fluticasone propionate 2 spray INTRANASAL DAILY PRN 08/05/20 08/20/20 ketoconazole 1 appl TOPICAL 2XW 08/05/20 08/20/20 multivitamin 1 tab PO DAILY 08/05/20 08/20/20 nicotine (polacrilex) 1 reese PO Q4H 08/05/20 08/20/20 sennosides [senna] 1 - 2 tab PO DAILY PRN 08/05/20 08/20/20 Previous Rx's Medication Instructions Recorded ipratropium 0.5 mg-albuterol 3 mg 3 ml INHALATION QID 30 Days #360 ml 06/28/20 (2.5 mg base)/3 mL nebulization soln dextromethorphan-guaifenesin 5 ml PO Q4H PRN #100 ml 08/06/20 levofloxacin 750 mg PO Q24H 7 Days #7 tab 08/06/20 prednisone 40 mg PO DAILY 5 Days #10 tab 08/06/20 DS: Summary Hospital Course Hospital Course: Patient was admitted for COPD exacerbation and Pneumonia. First thing this morning I was told he wanted to leave against medical adivise. When I went up with bankruptcy paralegal, he will not allow me to assess him unless he has coffee, he has been NPO for bronchoscopy. Pulmonolgist came and talk to hime and he was willing to stay but then changed his mind. I advised that his condition may worsenend and even can lead to . He was alert and oriented to self place and time and had situational awareness and left anyway. I prescribed Doxycyline for 7 days in addition to Levaquin which was prescribed on outpatient basis, Prednisone 40 daily x 5 days. Pulnologist will try and call and arrange follow up appointment. Time Spent with Patient Time attestation: Total time spent providing and/or coordinating discharge services: Physical Exam Vital Signs: Vital Signs: Last Vital Signs Temp 97.6 F 08/21/20 08:55 Pulse 110 H 08/21/20 08:55 Resp 18 08/21/20 08:55 BP 112/70 08/21/20 08:55 Pulse Ox 97 08/21/20 08:55 Body Mass Index 16.0 DS: Data Data Completed and Pending Completed studies during hospitalization [Text1]: Procedures Detoxification Services for Substance Abuse Treatment (06/01/20) Insertion of Infusion Device into Superior Vena Cava, Percutaneous Approach (06/01/20) Introduction of Vasopressor into Peripheral Vein, Percutaneous Approach (06/01/20) Ultrasonography of Superior Vena Cava, Guidance (06/01/20) Labs on day of discharge: 08/20/20 Breakfast Low Sodium Diet 08/20/20 16:32 XR chest 1V Stat 0.9 % Sodium Chloride [Ns] 1,000 ml IVCONT 999 mls/hr 08/20/20 16:33 Piperacillin Sodium/Tazobactam [Zosyn] 3.375 gm 0.9 % Sodium Chloride [Ns] 50 ml IV ONCE 08/20/20 16:36 CT angio chest PE protocol Stat 08/20/20 16:38 0.9 % Sodium Chloride [Ns] 500 ml IVCONT 999 mls/hr 08/20/20 16:49 B Type Natriuretic Peptide Stat Basic Metabolic Panel Stat Complete Blood Count Auto Diff Stat D Dimer Stat Lactic Acid Stat Liver Panel Stat Troponin-I High Sensitivity Stat 08/20/20 17:00 Acetaminophen [Tylenol] 650 mg PO ONCE ONE 08/20/20 17:14 Piperacillin Sodium/Tazobactam [Zosyn] 3.375 gm IV .STK-MED ONE 08/20/20 18:14 iohexoL 350 MG/ML [Omnipaque 350 MG/ML] 100 ml IV ONCE ONE 08/20/20 19:07 UA CC w/rflx Micro + Cult Stat 08/20/20 19:31 Consult Rx Perform Med Rec 1 each MISCELLANE ONCE PRN 08/20/20 19:48 COVID-19 ID NOW ([place]) Stat 08/20/20 20:28 Code Status Routine Transfer Order Routine 08/20/20 21:41 Acetaminophen [Tylenol] 650 mg PO Q6H PRN Fluticasone Propionate Nasal [Flonase Nasal] 2 spray NOSTRIL-B DAILY PRN Montelukast Sodium [Singulair] 10 mg PO BEDTIME guaiFENesin DM 100/10/5 ML [Robitussin DM 100/10/5 ML] 5 ml PO Q4H PRN levalbuterol HCL [Xopenex] 1.25 mg INHALE RQ4H WHILE AWAKE PRN ondansetron HCL [Zofran] 4 mg IVPUSH Q8H PRN 08/20/20 21:41 Ambulate QSHIFT WHILE AWAKE Cont. Telemetry w/Vital Sign limit Q4HR IV insert/maintain Q4HR Intake and Output QSHIFTE Pulse Oximetry Q4HR Vital Signs Q4HR 08/20/20 22:00 Azithromycin [Zithromax] 500 mg 0.9 % Sodium Chloride [Ns] 250 ml IV Q24H Enoxaparin Sodium [Lovenox] 40 mg SUBCUT Q24H cefTRIAXone sodium [Rocephin] 1 gm 0.9 % Sodium Chloride [Ns] 50 ml IV Q24H methylPREDNISolone Sod Succ/PF [SOLU-MedroL] 40 mg IVPUSH Q8H 08/20/20 22:11 cefTRIAXone sodium [Rocephin] 1 gm .ROUTE .STK-MED ONE 08/20/20 22:32 Azithromycin [Zithromax] 500 mg IV .STK-MED ONE 08/21/20 00:00 0.9 % Sodium Chloride Flush [NS Flush] 3 ml IVFLUSH QSHIFT 08/21/20 02:59 Throat Lozenge, Medicated [Cepacol] 1 lozenge MUCOUS MEM Q2H PRN 08/21/20 04:06 Basic Metabolic Panel DAILY@0600 Complete Blood Count Auto Diff DAILY@0600 SLIDE REVIEW Routine 08/21/20 07:39 ECG 12 lead EKG Stat 08/21/20 07:40 EKG Documentation DIRECTED 08/21/20 08:00 Fluticasone/Vilanterol 200/25 [Breo Ellipta 200/25] 1 puff INHALE RDAILY 08/21/20 09:00 Aspirin Enteric Coated [Ecotrin] 81 mg PO DAILY Atorvastatin Calcium [Lipitor] 20 mg PO DAILY Multivitamin 1 tab PO DAILY buPROPion HCl XL [Wellbutrin XL] 300 mg PO DAILY Laboratory Last Values WBC 10.0 X10*3/uL (4.8-10.8) 08/21/20 04:06 RBC 4.05 X10*6/uL (4.60-5.80) L 08/21/20 04:06 Hgb 11.4 g/dl (14.0-18.0) L 08/21/20 04:06 Hct 36.4 % (42-52) L 08/21/20 04:06 MCV 89.9 fL (80-98) 08/21/20 04:06 MCH 28.1 pg (27.0-33.0) 08/21/20 04:06 MCHC 31.3 g/dl (31.0-36.0) 08/21/20 04:06 RDW 15.7 % (11.0-16.0) 08/21/20 04:06 Plt Count 535 X10*3/uL (160-400) H 08/21/20 04:06 MPV 10.4 fL (9.4-12.4) 08/21/20 04:06 Immature Gran % (Auto) 0.4 % (0.0-0.4) 08/21/20 04:06 Neut % (Auto) 93.4 % (45-73) H 08/21/20 04:06 Lymph % (Auto) 5.0 % (20-40) L 08/21/20 04:06 [place] % (Auto) 0.8 % (2-11) L 08/21/20 04:06 Eos % (Auto) 0.0 % (0-4) 08/21/20 04:06 Baso % (Auto) 0.4 % (0-2) 08/21/20 04:06 Lymph # (Auto) 0.5 X10*3/uL (1.2-4.9) L 08/21/20 04:06 [place] # (Auto) 0.1 X10*3/uL (0.1-1.2) 08/21/20 04:06 Eos # (Auto) 0.0 X10*3/uL (0.0-0.4) 08/21/20 04:06 Baso # (Auto) 0.0 X10*3/uL (0.0-0.2) 08/21/20 04:06 Abs Immat Gran (auto) 0.04 X10*3/uL (0.00-0.03) H 08/21/20 04:06 Absolute Neuts (auto) 9.3 X10*3/uL (2.0-8.3) H 08/21/20 04:06 Absolute Nucleated RBC 0.000 X10*3/uL (0.0-0.012) 08/21/20 04:06 Nucleated RBC % (auto) 0.0 /100WBC (0.0-0.2) 08/21/20 04:06 Smear Tech's Comments VERIFIED 08/21/20 04:06 D-Dimer 2662 NG/ML 08/20/20 16:49 Sodium 135 mmol/L (135-145) 08/21/20 04:06 Potassium 4.9 mmol/l (3.3-5.1) 08/21/20 04:06 Chloride 89 mmol/L (96-108) L 08/21/20 04:06 Carbon Dioxide 35 mmol/L (22-29) H 08/21/20 04:06 Anion Gap 16 (12-20) 08/21/20 04:06 BUN 7 mg/dL (9-16) L 08/21/20 04:06 Creatinine 0.62 mg/dL (0.5-1.4) 08/21/20 04:06 Estim Creat Clear Calc 69.9 08/21/20 04:06 Estimated GFR > 60 08/21/20 04:06 Random Glucose 143 mg/dL (60-115) H 08/21/20 04:06 Lactic Acid 1.0 mmol/L (0.5-2.0) 08/20/20 16:49 Calcium 8.2 mg/dL (8.4-10.2) L 08/21/20 04:06 Total Bilirubin 0.2 mg/dL (0.0-1.0) 08/20/20 16:49 Direct Bilirubin 0.2 mg/dL (0.0-0.5) 08/20/20 16:49 AST 18 U/L (5-37) 08/20/20 16:49 ALT 19 U/L (0-40) 08/20/20 16:49 Alkaline Phosphatase 156 U/L (39-117) H D 08/20/20 16:49 Troponin I High Sens < 3.5 ng/L (<3.5-35.0) 08/20/20 16:49 B-Natriuretic Peptide 65 pg/mL (<100) 08/20/20 16:49 Total Protein 7.2 g/dL (6.5-8.0) 08/20/20 16:49 Albumin 3.6 g/dL (3.5-5.0) 08/20/20 16:49 Urine Color YELLOW 08/20/20 19:07 Urine Appearance CLEAR 08/20/20 19:07 Urine pH 6.5 (5.0-8.0) 08/20/20 19:07 Ur Specific [place] 1.015 (1.005-1.025) 08/20/20 19:07 Urine Protein NEG MG/DL (NEG-TRACE) 08/20/20 19:07 Urine Glucose (UA) NEG MG/DL (NEG) 08/20/20 19:07 Urine Ketones NEG MG/DL (NEG) 08/20/20 19:07 Urine Blood NEG (NEG) 08/20/20 19:07 Urine Nitrite NEG (NEG) 08/20/20 19:07 Ur Leukocyte Esterase NEG (NEG) 08/20/20 19:07 COVID-19 (LINDA) Negative (Negative) 08/20/20 19:48 COVID-19 Clin Com See Note 08/20/20 19:48 Discharge Plan Discharge Anticipated Discharge Date/Time: 08/21/20 10:53 Patient Disposition: Left Against Medical Advice Referrals: Physician,Unknown [Primary Care Provider] - Discharge Medications: New doxycycline hyclate 100 mg capsule 100 mg PO DAILY Qty: 14 RF: 0 prednisone 20 mg tablet 40 mg PO DAILY Qty: 8 RF: 0 Continued ipratropium-albuterol 0.5 mg-3 mg(2.5 mg base)/3 mL solution for nebulization 3 ml inhalation QID 30 Days Qty: 360 RF: 6 atorvastatin 20 mg tablet 1 tab PO DAILY RF: 0 albuterol sulfate 2.5 mg /3 mL (0.083 %) solution for nebulization 1 amp inhalation QID PRN (Reason: Wheezing) RF: 0 aspirin 81 mg tablet,delayed release (DR/EC) 1 tab PO DAILY RF: 0 sildenafil [Viagra] 100 mg tablet 0.5 - 1 tab PO DAILY PRN (Reason: Erectile Dysfunction) RF: 0 montelukast 10 mg tablet 1 tab PO BEDTIME RF: 0 Atrovent HFA 17 mcg/actuation HFA aerosol inhaler 2 puff PO QID RF: 0 multivitamin Tablet 1 tab PO DAILY RF: 0 bupropion HCl 150 mg tablet sustained-release 12 hr 1 tab PO BID RF: 0 sennosides [senna] 8.6 mg tablet 1 - 2 tab PO DAILY PRN (Reason: Constipation) RF: 0 ketoconazole 2 % shampoo 1 appl topical 2XW RF: 0 ferrous sulfate 325 mg (65 mg iron) tablet 325 mg PO DAILY RF: 0 fluticasone propionate 50 mcg/actuation spray,suspension 2 spray intranasal DAILY PRN (Reason: Nasal Congestion) RF: 0 nicotine (polacrilex) 2 mg lozenge 1 reese PO Q4H RF: 0 Breo Ellipta 200-25 mcg/dose blister with device 1 puff PO DAILY RF: 0 dextromethorphan-guaifenesin 10-100 mg/5 mL Syrup 5 ml PO Q4H PRN (Reason: cough ) Qty: 100 RF: 0 levofloxacin 750 mg tablet 750 mg PO Q24H 7 Days Qty: 7 RF: 0 prednisone 20 mg tablet 40 mg PO DAILY 5 Days Qty: 10 RF: 0 Discharge Orders: Discharge Order (Routine); Ordered 08/21/20 Ordered By: [facility] Diet: advance to usual diet Discharge Date/Time: 08/21/20 10:43 Care Plan Goals: Left Against medical exam Health Concerns: Left Against medical exam Plan of Treatment: Left Against medical exam
--- NOTE | 2020-08-21 13:08 | CONS_ITS ---
DATE OF SERVICE: 08/21/2020 INDICATION: Worsening cavitary pneumonia. HISTORY OF PRESENT ILLNESS: Mr. Baeza is a 65-year-old gentleman with known history of nontuberculous mycobacterial infection of the lung followed by Pulmonary, who has had long-standing fibrocavitary lung disease. Apparently, he was admitted to the hospital with worsening respiratory symptoms and cough and was noted to have worsening of the cavitary disease with significant mucus congestion and thickening of the airways as well as airspace disease. The patient was treated with antibiotics and discharged. Now, the patient presents with worsening respiratory symptoms, shortness of breath, worsening cough. He became scared and decided to come in. He was concerned about COVID. He did test negative for COVID, but had a repeat CT scan demonstrating interval worsening of the airspace disease and the cavitary disease. He was placed on Zosyn. I made the patient n.p.o. for potential bronchoscopy. However, the patient is reluctant because he wants to spend new years with his family. His main concern was the COVID-19 issue. Therefore, he opted not to have the bronchoscopy at this time. He did sign papers to go against medical advice. REVIEW OF SYSTEMS: Ten systems reviewed. Complains of the constitutional symptoms as stated above. Denies any fevers or chills. Complains of the respiratory symptoms. Denies any cardiac symptoms. Denies any GI or symptoms. Denies any musculoskeletal symptoms. The rest of the 10-organ system is negative. PAST MEDICAL HISTORY: COPD, nontuberculous mycobacteria infection, anxiety, depression, DJD, seborrheic dermatitis, hepatitis C. FAMILY HISTORY: Denies any cardiac disease. SOCIAL HISTORY: Quit smoking a few months ago per the patient. ALLERGIES: MORPHINE. MEDICATIONS: Please refer to the [facility] for the full list. He has been taken Breo as an outpatient and prednisone among others. In the hospital, he was given Zosyn. PHYSICAL EXAMINATION: VITAL SIGNS: Stable. Saturating 99%. GENERAL: The patient is comfortable, in no acute distress. HEENT: Pupils are equal and reactive to light. Oropharynx, clear. NECK: Supple. LUNGS: Diminished bilaterally. CARDIAC: Regular rhythm, regular rate. ABDOMEN: Positive bowel sounds. Soft. EXTREMITIES: No clubbing or cyanosis. LABORATORY DATA: His COVID-19 PCR was negative. White count was elevated at 15.2. Creatinine was normal. CT scan of the chest personally reviewed images by me. CTA showed no evidence of any blood clots noted. However, the patient had extensive worsening of the confluent airspace disease in the right hemithorax involving the right upper and the right lower with significant nodular densities in a bronchovascular distribution cannot rule out infection versus malignant process. ASSESSMENT: Mr. Baeza is a 65-year-old gentleman, with known history of mycobacterial disease in his lungs, now presenting with ongoing worsening respiratory symptoms and worsening cavitary airspace disease. IMPRESSION: 1. Cavitary pneumonia, likely superimposed on his mycobacterial disease. Pseudomonas is concern in addition to Staph aureus. Malignancies also in differential as far as concomitant process or other primary process. The patient is reluctant to undergo a procedure. He actually is going to leave against medical advice. 2. Pneumonia. RECOMMENDATIONS: I will recommend that he continues to have IV antibiotics, but if he is going to go against medical advice, he can be switched to p.o. antibiotics such as Augmentin or levofloxacin or Avelox. The patient should continue with current respiratory regimen. I will send a message to our office Outpatient Pulmonary to see if we can schedule him to come in to be seen by his primary radar operator in the coming days. Further recommendations will be based on forthcoming data. MD JULIETTE Armas/NIYA / [id number]
== END 2020-08-21 10:43 | disposition left against medical advice (07) | DRG 190 ==
LOC: HO.ED 19:35 → HO.IMC 20:56
PROVIDERS: Nurse Practitioner Acute Care; Admitting Provider Internal Medicine; Emergency Provider Emergency Medicine; Visit Provider Internal Medicine
DX: J44.0 Chronic obstructive pulmonary disease with (acute) lower respiratory infection (principal); J18.9 Pneumonia, unspecified organism; E44.0 Moderate protein-calorie malnutrition; Z68.1 Body mass index [BMI] 19.9 or less, adult; J44.1 Chronic obstructive pulmonary disease with (acute) exacerbation; F41.9 Anxiety disorder, unspecified; E78.5 Hyperlipidemia, unspecified; Z20.828 Contact with and (suspected) exposure to other viral communicable diseases; Z88.5 Allergy status to narcotic agent; Z79.51 Long term (current) use of inhaled steroids; Z79.82 Long term (current) use of aspirin; Z79.899 Other long term (current) drug therapy
CPT/HCPCS: 36415; 71045; 71275; 80048; 80076; 81003; 83605; 83880; 84484; 85025; 85379; 87040; 87635; 93005; 94640; 96361; 96374; 99285; J0456; J0696; J1650; J2543; J2920; Q9967

== ENCOUNTER → 2020-08-26 13:29 | Outpatient (BNVA) | payer OTHER, SELFPAY | PROVIDERS: PCP Nurse Practitioner Family; Visit Provider Hospitalist | DX: J44.9 Chronic obstructive pulmonary disease, unspecified (principal); Z79.899 Other long term (current) drug therapy | CPT/HCPCS: Q3014 ==

== ENCOUNTER 2020-08-28 09:27 | Day surgery (SDC) | payer OTHER, SELFPAY ==
[2020-08-27 12:05] VITALS: BMI 16.2
--- NOTE | 2020-08-27 12:55 | P.CONAN_ITS ---
Documented by User: Deana Pérez 08/27/20 12:59 HPI - Anesthesia Eval Consult details Narrative: 65yo M for Bronchoscopy Fiberoptic Left AMA [facility] [place], [place] 08/21/20 [facility] Past Medical History Medical History Asthma Bronchiectasis with (acute) exacerbation Cocaine abuse COPD (chronic obstructive pulmonary disease) COPD (chronic obstructive pulmonary disease) COPD exacerbation Latent tuberculosis Mycobacteria, atypical Pneumonia Family History Family History Other Family history non-contributory HTN (hypertension) Social History Social History Household Members: Spouse Housing: Apartment Alcohol intake: unknown Smoking Status: Former smoker Second Hand Smoke Exposure: No Use of substances other than those prescribed or required for medical reasons: Yes Substance Use Type: Crack/Cocaine Advance Directives: No Advance Directives Information Provided: No Advance Directives on File: No service: No Current occupational status: disabled Meds Allergies Allergy/AdvReac Type Severity Reaction Status Date / Time morphine [MORPHINE] Allergy Mild VOMITING Verified 08/26/20 15:36 Home Medications Medication Instructions Recorded Confirmed Type Atrovent HFA 2 puff PO QID 06/01/20 08/26/20 History albuterol sulfate 1 amp INHALATION QID PRN 06/01/20 08/26/20 History aspirin 1 tab PO DAILY 06/01/20 08/26/20 History atorvastatin 1 tab PO DAILY 06/01/20 08/26/20 History montelukast 1 tab PO BEDTIME 06/01/20 08/26/20 History sildenafil [Viagra] 0.5 - 1 tab PO DAILY PRN 06/01/20 08/26/20 History Breo Ellipta 1 puff PO DAILY 08/05/20 08/26/20 History bupropion HCl 1 tab PO BID 08/05/20 08/26/20 History ferrous sulfate 325 mg PO DAILY 08/05/20 08/26/20 History fluticasone propionate 2 spray INTRANASAL DAILY PRN 08/05/20 08/26/20 History ketoconazole 1 appl TOPICAL 2XW 08/05/20 08/26/20 History multivitamin 1 tab PO DAILY 08/05/20 08/26/20 History nicotine (polacrilex) 1 reese PO Q4H 08/05/20 08/26/20 History sennosides [senna] 1 - 2 tab PO DAILY PRN 08/05/20 08/26/20 History Exam Exam Date and Time: August 27, 2020 1255 Height,Weight and Vital Signs: Height 5 ft 4 in Weight 43.091 kg Pertinent Lab Results Pertinent Lab Results: Laboratory Tests 08/21/20 08/21/20 04:06 04:06 WBC 10.0 Hgb 11.4 L Hct 36.4 L Plt Count 535 H Sodium 135 Potassium 4.9 Chloride 89 L Carbon Dioxide 35 H BUN 7 L Creatinine 0.62 Narrative Narrative: EKG 08/21/20 Sinus tachycardia Right atrial enlargement Left axis deviation Abnormal ECG When compared with ECG of 05-AUG-2020 11:24, Premature atrial complexes are no longer Present CT angio chest PE protocol IMPRESSION: 1. No pulmonary arterial filling defect to suggest pulmonary embolus. 2. Severe cavitary changes of both upper lobe (right more prominent than left) are relatively similar in prominence. 3. Interval development/worsening of more confluent airspace disease within the superior segment of the right lower lobe. This is a nonspecific finding. Infectious, inflammatory and neoplastic processes are within the differential. Assessment and Plan Assessment Anesthesia Assessment: Chart Reviewed Documented by User: Trang Cleveland 08/28/20 11:07 [facility] Past Medical History Medical History Asthma Bronchiectasis with (acute) exacerbation Cocaine abuse COPD (chronic obstructive pulmonary disease) COPD (chronic obstructive pulmonary disease) COPD exacerbation Latent tuberculosis Mycobacteria, atypical Pneumonia Family History Family History Other Family history non-contributory HTN (hypertension) Social History Social History Household Members: Spouse Housing: Apartment Alcohol intake: unknown Smoking Status: Former smoker Second Hand Smoke Exposure: No Use of substances other than those prescribed or required for medical reasons: Yes Substance Use Type: Crack/Cocaine Advance Directives: No Advance Directives Information Provided: No Advance Directives on File: No service: No Current occupational status: disabled Meds Allergies Allergy/AdvReac Type Severity Reaction Status Date / Time morphine [MORPHINE] Allergy Mild VOMITING Verified 08/26/20 15:36 Home Medications Medication Instructions Recorded Confirmed Type Atrovent HFA 2 puff PO QID 06/01/20 08/26/20 History albuterol sulfate 1 amp INHALATION QID PRN 06/01/20 08/26/20 History aspirin 1 tab PO DAILY 06/01/20 08/26/20 History atorvastatin 1 tab PO DAILY 06/01/20 08/26/20 History montelukast 1 tab PO BEDTIME 06/01/20 08/26/20 History sildenafil [Viagra] 0.5 - 1 tab PO DAILY PRN 06/01/20 08/26/20 History Breo Ellipta 1 puff PO DAILY 08/05/20 08/26/20 History bupropion HCl 1 tab PO BID 08/05/20 08/26/20 History ferrous sulfate 325 mg PO DAILY 08/05/20 08/26/20 History fluticasone propionate 2 spray INTRANASAL DAILY PRN 08/05/20 08/26/20 History ketoconazole 1 appl TOPICAL 2XW 08/05/20 08/26/20 History multivitamin 1 tab PO DAILY 08/05/20 08/26/20 History nicotine (polacrilex) 1 reese PO Q4H 08/05/20 08/26/20 History sennosides [senna] 1 - 2 tab PO DAILY PRN 08/05/20 08/26/20 History Exam Airway Mallampati Class: II TM Dist: >3cm Neck ROM: Full Denture: Upper and Lower Assessment and Plan Assessment Anesthesia Assessment: Anesthesia Plan Discussed and Chart Reviewed Final Anesthetic Review NPO: Yes ASA Class: III Final Preanesthetic Review: No Changes in Pt Med Stat, Meds/Allgs Chart Reviewed, Consent Obtained/Reviewed and Anes Risks/Benef Reviewed Patient Risk: Intermediate Procedure Risk: Low Assessment/Block/Sedation in SS: Assess/Block/Sedation-SS Anesthetic Plan Anesthetic Plan: GA Disposition: Standard PACU
[2020-08-28] VITALS (7 sets, daily range): BP systolic 113–147; BP diastolic 69–87; PULSE 112–129; RESP 20–24; TEMP 36.5–36.8; O2SAT 95–100
--- NOTE | 2020-08-28 | XR_ITS ---
EXAMINATION: XR CHEST CLINICAL INFORMATION: Post right lung biopsies COMPARISON: Previous chest x-rays most recent August 20 2020 TECHNIQUE: Frontal view of the chest was obtained. FINDINGS: The cardiac and mediastinal contours are stable. There the lungs are hyperinflated. There is bilateral upper lobe volume loss. There is pleural thickening cavity formation and atelectasis and bronchial wall thickening in the right upper lobe that is unchanged. There is a left pleural thickening and bronchial wall thickening in the upper lobe. There are small calcified pulmonary nodules that are stable. There is no pleural effusion or pneumothorax. Bony structures are unremarkable. XR/XR chest 1V IMPRESSION: No pneumothorax post lung biopsies. Stable chest x-ray exam from July 2020.
[2020-08-28] MEDS: Lactated Ringers 1,000 ML 100 ML IVCONT (10:34)
--- NOTE | 2020-08-28 11:10 | MHC.SHP ---
Pre-Procedural Eval Section B Chief Complaint: pneumonia Allergies: Allergies Allergy/AdvReac Type Severity Reaction Status Date / Time morphine [MORPHINE] Allergy Mild VOMITING Verified 08/26/20 15:36 Plan I have reviewed the history and physical and performed a pertinent physical examination on my patient. No changes have occurred unless specified.
[2020-08-28] MEDS: Throat Lozenge, Medicated LOZENGE 1 LOZENGE MUCOUS MEM (13:14)
--- NOTE | 2020-08-28 22:23 | PM.OP ---
Brief Operative Note Date of Service: 08/28/20 Pre-op diagnosis: Pneumonia Post-op diagnosis: same Procedure: Bronchoscopy with washings, brushings, transbronchial biopsies Surgeon: Guillermo Sosa MD Anesthesia: GETA Estimated blood loss (mL): 3 Pathology: other (RLL washings, RLL brusgings, RLL transbronchial biopsies) Condition: stable Disposition: same day
--- NOTE | 2020-09-02 11:10 | OP_ITS ---
SURGEON: Guillermo Sosa MD PREOPERATIVE DIAGNOSIS: Pneumonia. POSTOPERATIVE DIAGNOSIS: Pneumonia. PROCEDURE PERFORMED: Bronchoscopy with washings, brushings, and transbronchial biopsies. ESTIMATED BLOOD LOSS: COMPLICATIONS: ANESTHESIA: General endotracheal anesthesia. The patient was consented. ASSISTANTS: SPECIMENS: DESCRIPTION OF PROCEDURE: After the patient was adequately sedated and intubated, the flexible digital bronchoscope was inserted over the ET tube to the level of the main og. The main og was indeed very splayed due to his history of chronic lower respiratory infection and bronchiectasis. After instilling additional lidocaine, the bronchoscope was navigated to the entire tracheobronchial tree. No evidence of any endobronchial lesions or masses. The patient did have mucoid secretions throughout. No evidence of any malignancy. The bronchoscope was navigated to the right lower lobe, where micro brush and cytologic brush were introduced and sent to the appropriate locations. Bronchial washings were also collected. Then, using forceps, transbronchial biopsies were collected. Biopsies resulted in some bleeding. Therefore, iced saline was used with good hemostasis and then half an ampule of epinephrine was also introduced into the area with complete hemostasis at the end of the procedure. The bronchoscope was removed. The patient tolerated the procedure well. Total time was approximately 20 minutes. The patient did have a chest x-ray afterwards demonstrated no evidence of any pneumothorax. The patient was able to go home. IMPRESSION: 1. Right lower lobe brushings x2. 2. Right lower lobe washings. 3. Right lower lobe transbronchial biopsies. Three attempts were done and 3 biopsies were collected. MD JULIETTE Armas/MODL / [id number]
== END 2020-08-28 14:20 | disposition home or self-care (01) ==
PROVIDERS: Visit Provider Hospitalist
PROC: 0BJ08ZZ Inspection of Tracheobronchial Tree, Via Natural or Artificial Opening Endoscopic (ICD-10-PCS; CPT 31622; principal; 2020-08-28 11:30)
DX: J18.9 Pneumonia, unspecified organism (principal); J44.9 Chronic obstructive pulmonary disease, unspecified; A31.9 Mycobacterial infection, unspecified; F14.10 Cocaine abuse, uncomplicated; Z72.89 Other problems related to lifestyle; Z22.7 Latent tuberculosis; Z79.51 Long term (current) use of inhaled steroids; Z79.52 Long term (current) use of systemic steroids; Z79.82 Long term (current) use of aspirin; Z88.8 Allergy status to other drugs, medicaments and biological substances; Z87.891 Personal history of nicotine dependence
CPT/HCPCS: 31628; 31623; 71045; 87071; 87102; 87116; 87205; 88112; 88305; 88312; J0171; J1100; J2370; J2405; J3010

== ENCOUNTER 2020-09-03 02:20 | Inpatient (IN) | payer OTHER, SELFPAY ==
[2020-09-03] VITALS (17 sets, daily range): BP systolic 84–141; BP diastolic 49–84; PULSE 96–145; RESP 18–36; TEMP 36.4–37; O2SAT 83–123; BMI 19.1
--- NOTE | 2020-09-03 03:51 | PC.NURSE ---
PT TO ED VIA AMBULANCE AFTER LOSING POWER AT HOME FOR HIS OXYGEN. PT IS [facility] SPEAKING ONLY. PT TO ED, CHG INTO GOWN AND AWAITING FOR MD'S EVAL.
--- NOTE | 2020-09-03 04:47 | ED.GENADULT ---
HPI - General Adult General Chief complaint: General Medical Stated complaint: SOB Time Seen by Provider: 09/03/20 04:46 Source: patient Mode of arrival: ambulatory Limitations: no limitations History of Present Illness HPI narrative: Patient comes emergency room because he lost electric power at his home, states that his home O2 is not working. Patient denies shortness of breath other than his baseline. Patient requested a COVID-19 test since his knees is positive and is at home with him. Patient denies fever, no chills, no cough, no body aches Related Data Home Medications Medication Instructions Recorded Confirmed Atrovent HFA 2 puff PO QID 06/01/20 08/26/20 albuterol sulfate 1 amp INHALATION QID PRN 06/01/20 08/26/20 aspirin 1 tab PO DAILY 06/01/20 08/26/20 atorvastatin 1 tab PO DAILY 06/01/20 08/26/20 montelukast 1 tab PO BEDTIME 06/01/20 08/26/20 sildenafil [Viagra] 0.5 - 1 tab PO DAILY PRN 06/01/20 08/26/20 Breo Ellipta 1 puff PO DAILY 08/05/20 08/26/20 bupropion HCl 1 tab PO BID 08/05/20 08/26/20 ferrous sulfate 325 mg PO DAILY 08/05/20 08/26/20 fluticasone propionate 2 spray INTRANASAL DAILY PRN 08/05/20 08/26/20 ketoconazole 1 appl TOPICAL 2XW 08/05/20 08/26/20 multivitamin 1 tab PO DAILY 08/05/20 08/26/20 nicotine (polacrilex) 1 reese PO Q4H 08/05/20 08/26/20 sennosides [senna] 1 - 2 tab PO DAILY PRN 08/05/20 08/26/20 Previous Rx's Medication Instructions Recorded ipratropium 0.5 mg-albuterol 3 mg 3 ml INHALATION QID 30 Days #360 ml 06/28/20 (2.5 mg base)/3 mL nebulization soln dextromethorphan-guaifenesin 5 ml PO Q4H PRN #100 ml 08/06/20 levofloxacin 750 mg PO Q24H 7 Days #7 tab 08/06/20 prednisone 40 mg PO DAILY 5 Days #10 tab 08/06/20 doxycycline hyclate 100 mg PO DAILY #14 cap 08/21/20 prednisone 40 mg PO DAILY #8 tab 08/21/20 prednisone 20 mg tablet 20 mg PO DAILY 10 Days #15 tab 08/26/20 dextromethorphan-guaifenesin 5 10 ml PO Q4-8H PRN 10 Days #355 ml 08/28/20 mg-100 mg/5 mL oral liquid levofloxacin 500 mg tablet 500 mg PO DAILY 10 Days #10 tab 08/28/20 Allergies Allergy/AdvReac Type Severity Reaction Status Date / Time morphine [MORPHINE] Allergy Mild VOMITING Verified 08/26/20 15:36 Review of Systems Review of Systems: Constitutional : No Weight loss, No Fever, No Chills, No Night Sweats, No Fatigue, No Malaise ENT/Mouth : No Hearing loss, No Ear Pain, No Nasal Congestion, No Sinus Pain, No Hoarseness, No sore throat, No Rhinorrhea, No Swallowing Difficulty Eyes: No Eye Pain, No Swelling, No Redness, No Foreign Body, No Discharge, No Vision Changes Cardiovascular : No Chest Pain, No SOB, No Dyspnea on Exertion, No Orthopnea, No Edema, No Palpitations Respiratory : No Cough, No Sputum, No Wheezing, No Smoke Exposure, No Dyspnea Gastrointestinal : No Nausea, No Vomiting, No Diarrhea, No Constipation, No abdominal Pain, No Hematochezia, No Melena Genitourinary : no irregular bleeding, No Dysuria, No Urinary Frequency, No Hematuria, No Urinary Incontinence, No Urgency, No Flank Pain, No Urinary Flow Changes, No Hesitancy Musculoskeletal : No joint pain, No Myalgias, No Joint Swelling Skin : No Skin Lesions, No rash Neuro : No Weakness, No Numbness, No Paresthesias, No Loss of Consciousness, No Dizziness, No Headache Psych : No Anxiety/Panic, No Depression, No SI/HI/AH/VH, No Social Issues, Heme/Lymph: No Bruising, No Bleeding,No Lymphadenopathy Endocrine : No Polyuria, No Polydipsia, No Temperature Intolerance [facility] Past Medical History Medical History Asthma Bronchiectasis with (acute) exacerbation Cocaine abuse COPD (chronic obstructive pulmonary disease) COPD (chronic obstructive pulmonary disease) COPD exacerbation Latent tuberculosis Mycobacteria, atypical Pneumonia Family History Family History Other Family history non-contributory HTN (hypertension) Social History Social History Household Members: Spouse Housing: Apartment Alcohol intake: never Smoking Status: Unknown if ever smoked Second Hand Smoke Exposure: No Use of substances other than those prescribed or required for medical reasons: No Substance Use Type: Crack/Cocaine Advance Directives: No service: No Current occupational status: disabled Physical Exam Vital Signs: Vital Signs: Last Vital Signs Temp 97.8 F 09/03/20 02:26 Pulse 118 H 09/03/20 06:00 Resp 28 H 09/03/20 03:52 BP 141/84 H 09/03/20 03:52 Pulse Ox 95 09/03/20 06:00 Body Mass Index 19.1 Appearance: Alert. Oriented X3. No acute distress. Eyes: Pupils equal, round and reactive to light. ENT: Pharynx normal. Neck: Normal inspection. Neck supple. No lymph nodes noted. No crepitus CVS: Normal heart rate and rhythm. Pulses normal. Normal S1 and S2 Respiratory: No respiratory distress. Breath sounds normal. No Wheezing. No rales Abdomen: Soft and nontender. No rigidity. No distention. good BS x4 Skin: Skin warm and dry. Normal skin color. Normal skin turgor. Extremities: No lower extremity edema. No lower extremity edema. No Lacerations. No Rash Neuro: Oriented X 3. No motor deficit. No sensory deficit. Moving all extermities. No slurred speech. Course Course Course Narrative: Patient initially was here because his oxygen at home is not working due to patient is without electricity. While patient was in the emergency room, around 1:35 am, he started becoming tachypneic, heart rate in the 150s. Patient's COVID tests are still pending, it is very likely that patient may have COVID as his niece who lives with the patient is positive for COVID-19. At this time, chest x-ray, EKG and labs were ordered. All those are pending. Patient's oxygen saturation is now 94% on 6 L. Sign-out given to Dr. Choudhary Discharge Plan Discharge Clinical Impression: Dyspnea Prescriptions: No Action ipratropium-albuterol 0.5 mg-3 mg(2.5 mg base)/3 mL solution for nebulization 3 ml inhalation QID 30 Days Qty: 360 RF: 6 levofloxacin 500 mg tablet 500 mg PO DAILY 10 Days Qty: 10 RF: 0 Robitussin Cough-Chest Von DM 5-100 mg/5 mL liquid 10 ml PO Q4-8H PRN (Reason: cough) 10 Days Qty: 355 RF: 2 atorvastatin 20 mg tablet 1 tab PO DAILY RF: 0 albuterol sulfate 2.5 mg /3 mL (0.083 %) solution for nebulization 1 amp inhalation QID PRN (Reason: Wheezing) RF: 0 aspirin 81 mg tablet,delayed release (DR/EC) 1 tab PO DAILY RF: 0 sildenafil [Viagra] 100 mg tablet 0.5 - 1 tab PO DAILY PRN (Reason: Erectile Dysfunction) RF: 0 montelukast 10 mg tablet 1 tab PO BEDTIME RF: 0 Atrovent HFA 17 mcg/actuation HFA aerosol inhaler 2 puff PO QID RF: 0 multivitamin Tablet 1 tab PO DAILY RF: 0 bupropion HCl 150 mg tablet sustained-release 12 hr 1 tab PO BID RF: 0 sennosides [senna] 8.6 mg tablet 1 - 2 tab PO DAILY PRN (Reason: Constipation) RF: 0 ketoconazole 2 % shampoo 1 appl topical 2XW RF: 0 ferrous sulfate 325 mg (65 mg iron) tablet 325 mg PO DAILY RF: 0 fluticasone propionate 50 mcg/actuation spray,suspension 2 spray intranasal DAILY PRN (Reason: Nasal Congestion) RF: 0 nicotine (polacrilex) 2 mg lozenge 1 reese PO Q4H RF: 0 Breo Ellipta 200-25 mcg/dose blister with device 1 puff PO DAILY RF: 0 dextromethorphan-guaifenesin 10-100 mg/5 mL Syrup 5 ml PO Q4H PRN (Reason: cough ) Qty: 100 RF: 0 levofloxacin 750 mg tablet 750 mg PO Q24H 7 Days Qty: 7 RF: 0 prednisone 20 mg tablet 40 mg PO DAILY 5 Days Qty: 10 RF: 0 doxycycline hyclate 100 mg capsule 100 mg PO DAILY Qty: 14 RF: 0 prednisone 20 mg tablet 40 mg PO DAILY Qty: 8 RF: 0 prednisone 20 mg tablet 20 mg PO DAILY 10 Days Qty: 15 RF: 0
--- NOTE | 2020-09-03 05:58 | PC.NURSE ---
COVID SWAB OBTAINED TO LAB. PT BEING D/C POSSIBLY WHEN HIS POWER IS TURNED ON. WILL CONTINUE TO MONITOR PT.
--- NOTE | 2020-09-03 07:40 | ECG_ITS ---
Test Reason : SB Blood Pressure : / mmHG Vent. Rate : 141 BPM Atrial Rate : 141 BPM P-R Int : 120 ms QRS Dur : 078 ms QT Int : 272 ms P-R-T Axes : 080 -55 063 degrees QTc Int : 416 ms Sinus tachycardia Right atrial enlargement Left axis deviation Pulmonary disease pattern Abnormal ECG When compared with ECG of 21-AUG-2020 09:03, No significant change was found Referred By: Miguelina Ontiveros Electronically Signed By:TRINY HUBBARD MD
--- NOTE | 2020-09-03 07:40 | XR_ITS ---
EXAMINATION: XR CHEST CLINICAL INFORMATION: Shortness of breath COMPARISON: Previous chest x-rays most recent 08/28/2020 TECHNIQUE: Frontal view of the chest was obtained. FINDINGS: The lungs are well inflated. There is bilateral upper lobe volume loss. There is biapical pleural and parenchymal scarring, right greater than left. There is thick walled cavity formation seen at the right lung apex and prominence of the right hilar and paratracheal mediastinal soft tissues. This is stable. There is linear scarring and mild pleural thickening at the left lung apex. There there are small bilateral calcified pulmonary nodules. These findings are all unchanged. No acute pneumonia is seen. There is no pleural effusion or pneumothorax. No acute osseous abnormality is seen. XR/XR chest 1V IMPRESSION: Well-inflated lungs, bilateral upper lobe volume loss and upper lobe pleural-parenchymal disease, right greater than left. Findings are unchanged from recent chest x-rays.
[2020-09-03] MEDS: 0.9 % Sodium Chloride 1,000 ML 999 ML IVCONT ×2 (07:52→07:59)
[2020-09-03] MEDS: Piperacillin Sodium/Tazobactam 3.375 GM in 0.9 % Sodium Chloride 50 ML IV (08:01)
[2020-09-03 08:03] LABS: Basophils Percent Auto 0.2 % (0-2); Eosinophils Absolute Auto 0.1 X10*3/uL (0.0-0.4); Eosinophils Percent Auto 0.8 % (0-4); Hematocrit 38.3 % (42-52); Hemoglobin 12.1 g/dl (14.0-18.0); Imm Gran Abs Auto 0.03 X10*3/uL (0.00-0.03); Imm Gran Pct Auto 0.2 % (0.0-0.4); Lymphocytes Absolute Auto 1.3 X10*3/uL (1.2-4.9); Lymphocytes Percent Auto 8.9 % (20-40); MANUAL DIFF FLAG SCAN; Mean Corpuscular HGB Conc 31.6 g/dl (31.0-36.0); Mean Corpuscular Hemoglobin 28.5 pg (27.0-33.0); Mean Corpuscular Volume 90.3 fL (80-98); Mean Platelet Volume 9.4 fL (9.4-12.4); Monocytes Percent Auto 13.5 % (2-11); Neutrophils Absolute Auto 11.1 X10*3/uL (2.0-8.3); Neutrophils Percent Auto 76.4 % (45-73); Platelet Count 553 X10*3/uL (160-400); Red Blood Count 4.24 X10*6/uL (4.60-5.80); Red Cell Distribution Width 17.5 % (11.0-16.0); SCAN SMEAR FLAG 1; White Blood Count 14.6 X10*3/uL (4.8-10.8)
[2020-09-03 08:32] LABS: SLIDE REVIEW VERIFIED
[2020-09-03 08:33] LABS: Lactic Acid 2.2 mmol/L (0.5-2.0)
[2020-09-03 08:34] LABS: Anion Gap 17 (12-20); Blood Urea Nitrogen 14 mg/dL (9-16); Calcium 8.8 mg/dL (8.4-10.2); Carbon Dioxide 35 mmol/L (22-29); Chloride 89 mmol/L (96-108); Estimated Glomerular Filt Rate > 60; Glucose Random 106 mg/dL (60-115); Potassium 5.1 mmol/l (3.3-5.1); Sodium 136 mmol/L (135-145)
[2020-09-03 08:39] LABS: B Type Natriuretic Peptide 29 pg/mL (<100); Troponin-I High Sensitivity < 3.5 ng/L (<3.5-35.0)
[2020-09-03 08:53] LABS: Procalcitonin 0.03 ng/mL
[2020-09-03 08:55] LABS: Ferritin 446 ng/mL (20-250)
--- NOTE | 2020-09-03 09:40 | CT_ITS ---
EXAMINATION: CT ANGIOGRAM OF THE CHEST WITH AND WITHOUT CONTRAST (CT PULMONARY ANGIOGRAM FOR PE) CLINICAL INFORMATION: Reason for Exam Shortness of breath, tachycardia, elevated D-dimer, r/o PE COMPARISON: Previous chest x-rays most recent from earlier the same day and previous chest CTA 08/20/2020 TECHNIQUE: Prior to contrast administration, noncontrast localization images were obtained. Subsequently, multidetector volumetric imaging was performed from the thoracic inlet to below the diaphragms following the administration of 65 mL Omnipaque 350 intravenous contrast. No contrast reaction reported Sagittal, coronal, and MIP oblique sagittal reformatted images were obtained on the CT workstation, uploaded to PACS, and reviewed. This CT examination was performed using dose optimization techniques as appropriate, variously including the following: *Automated exposure control *Adjustment of mA and/or kV according to patient size (this includes techniques or standardized protocols for targeted exams where dose is matched to indication/reason for exam; i.e. extremities or head) *Use of iterative reconstruction technique Total exam dose-length product 197 mGy-cm FINDINGS: QUALITY OF STUDY/CONTRAST BOLUS: Satisfactory. PULMONARY ARTERIES: No central or segmental pulmonary emboli. There is thinning or attenuation of several right upper lobe pulmonary artery branches similar to previous exam. THORACIC AORTA: No aneurysm or dissection. LUNG: There is evidence of emphysema. There is bilateral upper lobe volume loss. There is no significant change in the thick-walled cavitary lesion in the right upper lobe. There is right upper lobe bronchiectasis. There is a thick-walled cavitary lesion in the superior segment of the right lower lobe that is stable. There is bronchiectasis and bronchial wall thickening of the right middle and right lower lobes. There are several nodular parenchymal opacities seen in the right lower lobe that are stable. There are also nodular opacities that appear to correspond to bronchial soft tissue opacification or mucus plugging that are stable. There is is left apical pleural thickening. There is a smaller cavitary lesion in the left upper lobe that is stable. There is adjacent upper lobe bronchiectasis that is stable. There is a single nodular opacity in the left lower lobe that is stable. There are innumerable small calcified pulmonary nodules that are stable. PLEURA: There is biapical pleural thickening, right greater than left. There is no pleural effusion. MEDIASTINUM: Normal heart size. Coronary artery calcification. No pericardial effusion. There is stable mediastinal lymphadenopathy. No evidence of septal bowing or right heart strain. CHEST WALL/AXILLA: No axillary or internal mammary lymphadenopathy. OSSEOUS STRUCTURES: No acute or suspicious osseous abnormality. UPPER ABDOMEN: There is a 3 cm left renal cyst. There is evidence of atherosclerotic disease. No reflux of contrast into the hepatic veins to suggest elevated right heart pressures. CT/CT angio chest PE protocol IMPRESSION: No evidence of pulmonary embolism. There is thinning or attenuation of several right upper lobe pulmonary artery branches. Stable bilateral upper lobe volume loss, cavitary lesions thick-walled bronchiectasis and pleural thickening, right greater than left. Stable cavitary lesion in the superior segment of the right lower lobe. Stable areas of bronchiectasis, bronchial wall thickening, mucus plugging and nodular opacities in the right middle lobe and bilateral lower lobes, again right greater than left. Coronary artery calcification VTE: negative
[2020-09-03 10:00] LABS: Reflex Lactate? Lactic Acid Added
[2020-09-03] MEDS: Acetaminophen 325 MG TABLET 975 MG PO (10:28)
[2020-09-03] MEDS: LORazepam 1 MG TABLET PO (10:29)
[2020-09-03] MEDS: iohexoL 350 MG/ML 100 ML INFUS..BTL 65 ML IV (10:47)
[2020-09-03] MEDS: LORazepam 2 MG/ML VIAL 1 MG IVPUSH (11:35)
[2020-09-03] MEDS: Albuterol Sulfate (0.083%) 2.5 MG/3 ML VIAL.NEB INHALE (11:52)
--- NOTE | 2020-09-03 12:09 | PC.NURSE ---
pt difficult to arouse. light sternal rub needed. skin pwd. st on monitor. easy rr while lightly sedated.
--- NOTE | 2020-09-03 12:37 | ED_ITS ---
HPI - General Adult General Chief complaint: General Medical Stated complaint: SOB Time Seen by Provider: 09/03/20 04:46 Source: patient Mode of arrival: ambulatory Limitations: no limitations History of Present Illness HPI narrative: Please see my addendum on Dr. Ontiveros note. This patient was signed out to me and admitted. Related Data Home Medications Medication Instructions Recorded Confirmed Atrovent HFA 2 puff PO QID 06/01/20 09/03/20 albuterol sulfate 1 amp INHALATION QID PRN 06/01/20 09/03/20 aspirin 81 mg PO DAILY 06/01/20 09/03/20 atorvastatin 20 mg PO DAILY 06/01/20 09/03/20 montelukast 10 mg PO BEDTIME 06/01/20 09/03/20 sildenafil [Viagra] 0.5 - 1 tab PO DAILY PRN 06/01/20 09/03/20 Breo Ellipta 1 puff PO DAILY 08/05/20 09/03/20 bupropion HCl 150 mg PO BID 08/05/20 09/03/20 ferrous sulfate 325 mg PO DAILY 08/05/20 09/03/20 fluticasone propionate 2 spray INTRANASAL DAILY PRN 08/05/20 09/03/20 ketoconazole 1 appl TOPICAL 2XW 08/05/20 09/03/20 multivitamin 1 tab PO DAILY 08/05/20 09/03/20 nicotine (polacrilex) 2 mg PO Q4H 08/05/20 09/03/20 sennosides [senna] 1 - 2 tab PO DAILY PRN 08/05/20 09/03/20 Incruse Ellipta 1 inh INHALATION DAILY 09/03/20 09/03/20 gabapentin 300 mg PO TID 09/03/20 09/03/20 Previous Rx's Medication Instructions Recorded ipratropium 0.5 mg-albuterol 3 mg 3 ml INHALATION QID 30 Days #360 ml 06/28/20 (2.5 mg base)/3 mL nebulization soln dextromethorphan-guaifenesin 5 ml PO Q4H PRN #100 ml 08/06/20 doxycycline hyclate 100 mg PO DAILY #14 cap 08/21/20 prednisone 20 mg tablet 20 mg PO DAILY 10 Days #15 tab 08/26/20 acetazolamide 250 mg PO DAILY #30 tab 09/08/20 dexamethasone 6 mg PO DAILY #4 tab 09/08/20 dextromethorphan-guaifenesin 5 ml PO Q4H PRN 7 Days ml 09/08/20 Allergies Allergy/AdvReac Type Severity Reaction Status Date / Time morphine [MORPHINE] Allergy Mild VOMITING Verified 08/26/20 15:36 [facility] Past Medical History Medical History (Updated 09/16/20 @ 00:00 by Background Adiel) Asthma Bronchiectasis Bronchiectasis with (acute) exacerbation Cocaine abuse COPD (chronic obstructive pulmonary disease) COPD (chronic obstructive pulmonary disease) COPD exacerbation Latent tuberculosis Mycobacteria, atypical Pneumonia Respiratory failure with hypoxia and hypercapnia Family History Family History Other Family history non-contributory HTN (hypertension) Social History Social History Household Members: Children Housing: Apartment Alcohol intake: never Smoking Status: Unknown if ever smoked Second Hand Smoke Exposure: No Substance Use Type: Crack/Cocaine service: No Current occupational status: retired and disabled Physical Exam Vital Signs: Vital Signs: Last Vital Signs Temp 97.7 F 09/08/20 12:00 Pulse 106 H 09/08/20 12:00 Resp 20 09/08/20 12:00 BP 133/73 09/08/20 12:00 Pulse Ox 98 09/08/20 12:00 Body Mass Index 19.1 Medical Decision Making Lab Data Result diagrams: 09/06/20 06:07 09/08/20 07:06 Labs: Lab Results 09/03/20 09/03/20 09/03/20 Range/Units 05:55 07:54 07:54 WBC 14.6 H (4.8-10.8) X10*3/uL RBC 4.24 L (4.60-5.80) X10*6/uL Hgb 12.1 L (14.0-18.0) g/dl Hct 38.3 L (42-52) % MCV 90.3 (80-98) fL MCH 28.5 (27.0-33.0) pg MCHC 31.6 (31.0-36.0) g/dl RDW 17.5 H (11.0-16.0) % Plt Count 553 H (160-400) X10*3/uL MPV 9.4 (9.4-12.4) fL Immature Gran % (Auto) 0.2 (0.0-0.4) % Neut % (Auto) 76.4 H (45-73) % Lymph % (Auto) 8.9 L (20-40) % [place] % (Auto) 13.5 H (2-11) % Eos % (Auto) 0.8 (0-4) % Baso % (Auto) 0.2 (0-2) % Lymph # (Auto) 1.3 (1.2-4.9) X10*3/uL [place] # (Auto) 2.0 H (0.1-1.2) X10*3/uL Eos # (Auto) 0.1 (0.0-0.4) X10*3/uL Baso # (Auto) 0.0 (0.0-0.2) X10*3/uL Abs Immat Gran (auto) 0.03 (0.00-0.03) X10*3/uL Absolute Neuts (auto) 11.1 H (2.0-8.3) X10*3/uL Absolute Nucleated RBC 0.000 (0.0-0.012) X10*3/uL Nucleated RBC % (auto) 0.0 (0.0-0.2) /100WBC Smear Tech's Comments VERIFIED Sodium 136 (135-145) mmol/L Potassium 5.1 (3.3-5.1) mmol/l Chloride 89 L (96-108) mmol/L Carbon Dioxide 35 H (22-29) mmol/L Anion Gap 17 (12-20) BUN 14 D (9-16) mg/dL Creatinine 0.67 (0.5-1.4) mg/dL Estim Creat Clear Calc 101.0 Estimated GFR > 60 Random Glucose 106 (60-115) mg/dL Lactic Acid (0.5-2.0) mmol/L Lactic Acid Fup @ 2Hr (0.5-2.0) mmol/L Calcium 8.8 D (8.4-10.2) mg/dL Ferritin 446 H (20-250) ng/mL Troponin I High Sens (<3.5-35.0) ng/L B-Natriuretic Peptide (<100) pg/mL Procalcitonin ng/mL SARS-CoV-2 (PCR) DETECTED A (NOT DETECTED) COVID-19 (LINDA) (Negative) COVID-19 Clin Com 09/03/20 09/03/20 09/03/20 Range/Units 07:54 07:54 07:54 WBC (4.8-10.8) X10*3/uL RBC (4.60-5.80) X10*6/uL Hgb (14.0-18.0) g/dl Hct (42-52) % MCV (80-98) fL MCH (27.0-33.0) pg MCHC (31.0-36.0) g/dl RDW (11.0-16.0) % Plt Count (160-400) X10*3/uL MPV (9.4-12.4) fL Immature Gran % (Auto) (0.0-0.4) % Neut % (Auto) (45-73) % Lymph % (Auto) (20-40) % [place] % (Auto) (2-11) % Eos % (Auto) (0-4) % Baso % (Auto) (0-2) % Lymph # (Auto) (1.2-4.9) X10*3/uL [place] # (Auto) (0.1-1.2) X10*3/uL Eos # (Auto) (0.0-0.4) X10*3/uL Baso # (Auto) (0.0-0.2) X10*3/uL Abs Immat Gran (auto) (0.00-0.03) X10*3/uL Absolute Neuts (auto) (2.0-8.3) X10*3/uL Absolute Nucleated RBC (0.0-0.012) X10*3/uL Nucleated RBC % (auto) (0.0-0.2) /100WBC Smear Tech's Comments Sodium (135-145) mmol/L Potassium (3.3-5.1) mmol/l Chloride (96-108) mmol/L Carbon Dioxide (22-29) mmol/L Anion Gap (12-20) BUN (9-16) mg/dL Creatinine (0.5-1.4) mg/dL Estim Creat Clear Calc Estimated GFR Random Glucose (60-115) mg/dL Lactic Acid 2.2 H* (0.5-2.0) mmol/L Lactic Acid Fup @ 2Hr (0.5-2.0) mmol/L Calcium (8.4-10.2) mg/dL Ferritin (20-250) ng/mL Troponin I High Sens < 3.5 (<3.5-35.0) ng/L B-Natriuretic Peptide 29 (<100) pg/mL Procalcitonin 0.03 ng/mL SARS-CoV-2 (PCR) (NOT DETECTED) COVID-19 (LINDA) (Negative) COVID-19 Clin Com 09/03/20 09/03/20 Range/Units 16:11 16:12 WBC (4.8-10.8) X10*3/uL RBC (4.60-5.80) X10*6/uL Hgb (14.0-18.0) g/dl Hct (42-52) % MCV (80-98) fL MCH (27.0-33.0) pg MCHC (31.0-36.0) g/dl RDW (11.0-16.0) % Plt Count (160-400) X10*3/uL MPV (9.4-12.4) fL Immature Gran % (Auto) (0.0-0.4) % Neut % (Auto) (45-73) % Lymph % (Auto) (20-40) % [place] % (Auto) (2-11) % Eos % (Auto) (0-4) % Baso % (Auto) (0-2) % Lymph # (Auto) (1.2-4.9) X10*3/uL [place] # (Auto) (0.1-1.2) X10*3/uL Eos # (Auto) (0.0-0.4) X10*3/uL Baso # (Auto) (0.0-0.2) X10*3/uL Abs Immat Gran (auto) (0.00-0.03) X10*3/uL Absolute Neuts (auto) (2.0-8.3) X10*3/uL Absolute Nucleated RBC (0.0-0.012) X10*3/uL Nucleated RBC % (auto) (0.0-0.2) /100WBC Smear Tech's Comments Sodium (135-145) mmol/L Potassium (3.3-5.1) mmol/l Chloride (96-108) mmol/L Carbon Dioxide (22-29) mmol/L Anion Gap (12-20) BUN (9-16) mg/dL Creatinine (0.5-1.4) mg/dL Estim Creat Clear Calc Estimated GFR Random Glucose (60-115) mg/dL Lactic Acid (0.5-2.0) mmol/L Lactic Acid Fup @ 2Hr 1.0 (0.5-2.0) mmol/L Calcium (8.4-10.2) mg/dL Ferritin (20-250) ng/mL Troponin I High Sens (<3.5-35.0) ng/L B-Natriuretic Peptide (<100) pg/mL Procalcitonin ng/mL SARS-CoV-2 (PCR) (NOT DETECTED) COVID-19 (LINDA) Positive A (Negative) COVID-19 Clin Com See Note Discharge Plan Discharge Clinical Impression: Dyspnea, Acute exacerbation of chronic obstructive pulmonary disease, Tachycardia Patient Disposition: Admitted As Inpatient Discharge Date/Time: 09/03/20 18:34
[2020-09-03] MEDS: Albuterol/Iprat 2.5/0.5MG 3 ML AMPUL.NEB INHALE (12:44)
[2020-09-03] MEDS: 0.9 % Sodium Chloride 1,000 ML 250 ML IV (12:59)
--- NOTE | 2020-09-03 13:00 | PC.NURSE ---
bp s remain low. arousable to sternal rub. st on monitor. perrla
--- NOTE | 2020-09-03 14:34 | PC.NURSE ---
pt found awake, slumped against bedrail, urine soaked bed and floor. hard to understand. unable to communicate needs.
--- NOTE | 2020-09-03 14:38 | PC.NURSE ---
pt linen changed. became calm once o2 was increased to 5L. sating 99%. now resting quietly on stretcher. vitals updated.
[2020-09-03 16:26] LABS: COVID-19 Test Positive (Negative); IDNOW Serial# 9DD0AD1C
--- NOTE | 2020-09-03 17:33 | PC.NURSE ---
pt found standing in corner of room, leaning against iv cart, urinating on floor. carefuly placed back in bed. was aggitated with sao2 84%, calming once hypoxia had resolved.
--- NOTE | 2020-09-03 17:40 | PM.IMHP ---
History of Present Illness Date of Service: 09/03/20 Chief Complaint: Shortness of breath, difficulty breathing A 65 years old male with PMH of COPD, HX TB, bronchiectasis among others who presented to the hospital with reported shortness of breath and difficulty breathing. The patient reported presented to the hospital as there was a power failure and his home oxygen was not working. The patient was complaining of palpitation, difficulty breathing and having chills. At time of interview the patient was sleepy after receiving lorazepam for agitation. History was taken mainly from ED provider and notes. CT scan of the chest PE protocol consistent with multiple previously known cavities. Patient received IV antibiotics, steroids and nebulizers with fair response. Review of Systems Review of Systems: Unable to obtain as the patient encephalopathic [facility] Medical History Asthma Bronchiectasis with (acute) exacerbation Cocaine abuse COPD (chronic obstructive pulmonary disease) COPD (chronic obstructive pulmonary disease) COPD exacerbation Latent tuberculosis Mycobacteria, atypical Pneumonia Family History Other Family history non-contributory HTN (hypertension) Social History Household Members: Spouse Housing: Apartment Alcohol intake: never Smoking Status: Unknown if ever smoked Second Hand Smoke Exposure: No Use of substances other than those prescribed or required for medical reasons: No Substance Use Type: Crack/Cocaine Advance Directives: No service: No Current occupational status: disabled Meds Allergies Allergy/AdvReac Type Severity Reaction Status Date / Time morphine [MORPHINE] Allergy Mild VOMITING Verified 08/26/20 15:36 Home Medications Medication Instructions Recorded Confirmed Type Atrovent HFA 2 puff PO QID 06/01/20 09/03/20 History albuterol sulfate 1 amp INHALATION QID PRN 06/01/20 09/03/20 History aspirin 81 mg PO DAILY 06/01/20 09/03/20 History atorvastatin 1 tab PO DAILY 06/01/20 09/03/20 History montelukast 10 mg PO BEDTIME 06/01/20 09/03/20 History sildenafil [Viagra] 0.5 - 1 tab PO DAILY PRN 06/01/20 09/03/20 History Breo Ellipta 1 puff PO DAILY 08/05/20 09/03/20 History bupropion HCl 150 mg PO BID 08/05/20 09/03/20 History ferrous sulfate 325 mg PO DAILY 08/05/20 09/03/20 History fluticasone propionate 2 spray INTRANASAL DAILY PRN 08/05/20 09/03/20 History ketoconazole 1 appl TOPICAL 2XW 08/05/20 09/03/20 History multivitamin 1 tab PO DAILY 08/05/20 09/03/20 History nicotine (polacrilex) 1 reese PO Q4H 08/05/20 09/03/20 History sennosides [senna] 1 - 2 tab PO DAILY PRN 08/05/20 09/03/20 History gabapentin 300 mg PO TID 09/03/20 09/03/20 History umeclidinium [Incruse Ellipta] 1 inh INHALATION DAILY 09/03/20 09/03/20 History Physical Exam Vital Signs and Narrative: Vital Signs: Last Vital Signs Temp 98.6 F 09/03/20 08:06 Pulse 117 H 09/03/20 17:33 Resp 26 H 09/03/20 17:33 BP 100/53 L 09/03/20 17:33 Pulse Ox 98 09/03/20 17:33 Body Mass Index 19.1 Constitutional : Encephalopathic, response to stimulation but not following orders, not in distress Neck : Normal inspection, Supple Cardiovascular : RRR, S1 S2, no lower extremity edema Respiratory : In mild respiratory distress, bilateral chest wall movement Gastrointestinal: soft, lax, Normal bowel sounds, Non tender Skin : Warm/Dry, No rash Neurological : Encephalopathic, No focal deficit Results Labs CBC and Chem 7: 09/03/20 07:54 09/03/20 07:54 Labs: Laboratory Results - last 24 hr 09/03/20 09/03/20 09/03/20 07:54 07:54 07:54 MCV 90.3 MCH 28.5 MCHC 31.6 RDW 17.5 H Plt Count 553 H MPV 9.4 Immature Gran % (Auto) 0.2 Neut % (Auto) 76.4 H Lymph % (Auto) 8.9 L [place] % (Auto) 13.5 H Eos % (Auto) 0.8 Baso % (Auto) 0.2 Lymph # (Auto) 1.3 [place] # (Auto) 2.0 H Eos # (Auto) 0.1 Baso # (Auto) 0.0 Abs Immat Gran (auto) 0.03 Absolute Neuts (auto) 11.1 H Absolute Nucleated RBC 0.000 Nucleated RBC % (auto) 0.0 Smear Tech's Comments VERIFIED Anion Gap 17 Estim Creat Clear Calc 101.0 Estimated GFR > 60 Random Glucose 106 Lactic Acid 2.2 H* Lactic Acid Fup @ 2Hr Calcium 8.8 D Ferritin 446 H Troponin I High Sens B-Natriuretic Peptide Procalcitonin COVID-19 (LINDA) [employer] 09/03/20 09/03/20 09/03/20 07:54 07:54 16:11 MCV MCH MCHC RDW Plt Count MPV Immature Gran % (Auto) Neut % (Auto) Lymph % (Auto) [place] % (Auto) Eos % (Auto) Baso % (Auto) Lymph # (Auto) [place] # (Auto) Eos # (Auto) Baso # (Auto) Abs Immat Gran (auto) Absolute Neuts (auto) Absolute Nucleated RBC Nucleated RBC % (auto) Smear Tech's Comments Anion Gap Estim Creat Clear Calc Estimated GFR Random Glucose Lactic Acid Lactic Acid Fup @ 2Hr 1.0 Calcium Ferritin Troponin I High Sens < 3.5 B-Natriuretic Peptide 29 Procalcitonin 0.03 COVID-19 (LINDA) [employer] 09/03/20 16:12 MCV MCH MCHC RDW Plt Count MPV Immature Gran % (Auto) Neut % (Auto) Lymph % (Auto) [place] % (Auto) Eos % (Auto) Baso % (Auto) Lymph # (Auto) [place] # (Auto) Eos # (Auto) Baso # (Auto) Abs Immat Gran (auto) Absolute Neuts (auto) Absolute Nucleated RBC Nucleated RBC % (auto) Smear Tech's Comments Anion Gap Estim Creat Clear Calc Estimated GFR Random Glucose Lactic Acid Lactic Acid Fup @ 2Hr Calcium Ferritin Troponin I High Sens B-Natriuretic Peptide Procalcitonin COVID-19 (LINDA) Positive A [facility] See Note Imaging Radiologist's Impressions: Impressions Chest X-Ray 09/03/20 07:40 IMPRESSION: Well-inflated lungs, bilateral upper lobe volume loss and upper lobe pleural-parenchymal disease, right greater than left. Findings are unchanged from recent chest x-rays. Chest CTA 09/03/20 09:40 IMPRESSION: No evidence of pulmonary embolism. There is thinning or attenuation of several right upper lobe pulmonary artery branches. Stable bilateral upper lobe volume loss, cavitary lesions thick-walled bronchiectasis and pleural thickening, right greater than left. Stable cavitary lesion in the superior segment of the right lower lobe. Stable areas of bronchiectasis, bronchial wall thickening, mucus plugging and nodular opacities in the right middle lobe and bilateral lower lobes, again right greater than left. Coronary artery calcification VTE: negative Assessment and Plan (1) Acute respiratory failure with hypoxia: Status: Acute (2) COVID-19 virus infection: Status: Acute (3) Tachycardia: Status: Acute (4) COPD (chronic obstructive pulmonary disease): Status: Acute A 65 years old male with PMH of COPD, HX TB, bronchiectasis among others who presented to the hospital with reported shortness of breath and difficulty breathing. Acute hypoxic respiratory failure COVID-19 infection COPD exacerbation CTA of the chest negative for PE, stable cavities with nodular opacities Positive COVID-19 test Started on steroid therapy Oxygen supplement, to wean down as tolerated To do albuterol and ipratropium inhalers To get pulmonary evaluation Smoking history NRT DVT PPX Lovenox
--- NOTE | 2020-09-03 18:34 | PC.NURSE ---
Nursing report given. Pt transported to [facility] unit at this time via stretcher by metrology technician
[2020-09-03 20:25] LABS: Pt Ventilation O2% 4 L
[2020-09-03 20:32] LABS: pH ABG 7.23 (7.35-7.45)
[2020-09-03 20:33] LABS: Base Excess ABG 7.2; HCO3 ABG 38 mmol/l (22-26); PO2 ABG 150 mmhg (83-108)
[2020-09-03 20:35] LABS: ABG PCO2 93 mmhg (32-45)
[2020-09-03] MEDS: 0.9 % Sodium Chloride Flush 3 ML SYRINGE IVFLUSH (20:42)
[2020-09-03] MEDS: Enoxaparin Sodium 40 MG/0.4 ML SYRINGE SUBCUT (20:42)
--- NOTE | 2020-09-03 23:53 | P.PNCC_ITS ---
Subjective Subjective Date of Service: 09/04/20 Interval History: Chief complaint: Hypoxic respiratory failure and respiratory acidosis COPD exacerbation HPI: Patient is a 65-year-old male with underlying history of COPD, O2 dependent of steroids and oxygen, history of tuberculosis, cocaine abuse, prior pneumonia who apparently was seen in the emergency room this morning due to shortness of breath in the setting of not having oxygen at home for he had power 5 earlier. He had been treated with steroids, DuoNebs and at some point he was given Ativan due to anxiety, he did receive some Zosyn for possibility of pneumonia. He was found to have some chills and his COVID test was positive. He was admitted to the floor but while there, an ABG was done for the patient was noted to have significant respiratory distress, his oxygen had dropped to 83% despite of high-flow to nasal cannula, the ABG showed a pH of 7.1 and pCO2 above 90 however his PO2 is also 150. Patient appeared to be lethargic and not breathing well, due to the concern of significant respiratory depression and his high bicarb, the patient was placed on BiPAP and transferred to the ICU. ROS: unable to obtain patient in distress Past Medical History: As above Past Surgical History: Unknown Family history: Unknown Social History: Is known to live at home, history of tobacco consumption, u nclear if it is still present. History of use of crack cocaine. CODE STATUS: Full Code Allergies: Morphine (vomiting) Home Medications: Please see [facility] rec Focused sepsis exam PHYSICAL EXAM done at 2230: VS: 107/53, heart rate of 114, respiratory rate 18, O2 sat 99% on BiPAP, temperature 97.6?. General: Alert , Following all commands, appears to be in respiratory distress, using accessory muscles. ?Skin: Intact, no lesions, edema, erythema, clubbing or cyanosis. No ulcers. ?HEENT: Head is normocephalic, atraumatic, pupils equal round reactive to light accommodation bilaterally. Extraocular movements appear intact. Buccal mucosa is moist, Neck is supple without lymphadenopathy. ?Cardiac: Tachycardic 110 beats per minute. No murmurs rubs or gallops ?Pulmonary: Diminished lung sounds bilaterally with expiratory wheezing bilaterally and throughout. No crackles or rales. ?Abdomen: Protuberant, positive bowel sounds in all 4 quadrants. Soft, nontender, no rebound or guarding. ?Musculoskeletal: Moving all 4 extremities upon request a major joints, there is no crepitus or tenderness. The strength is 5/5 bilaterally and throughout all 4 extremities. Gait not assessed at this point. ?Neurologic: As above, cranial nerves 2-12 are grossly intact. No focal deficits noted. Motor strength as above. Vascular: 2+ pulses upper and lower extremities distally. Less than 2nd capillary refill bilaterally toes and fingers SIGNIFICANT LABORATORY DATA: White blood cells 14.6, hemoglobin 12.1, hematocrit 30.3, platelet 553, sodium 136, potassium 5.1, chloride 89, carbon dioxide 35, anion gap 17, BUN 14, creatinine 0.67, lactic acid 2.2, ferritin 446, COVID-19 test positive. Arterial blood gas shows pH of 7.23, pCO2 of 93, PO2 of 150, HC03 of 38. REVIEW OF IMAGES: Chest x-ray IMPRESSION: Well-inflated lungs, bilateral upper lobe volume loss and upper lobe pleural-parenchymal disease, right greater than left. Findings are unchanged from recent chest x-rays. CT angiogram of the chest IMPRESSION: No evidence of pulmonary embolism. There is thinning or attenuation of several right upper lobe pulmonary artery branches. Stable bilateral upper lobe volume loss, cavitary lesions thick-walled bronchiectasis and pleural thickening, right greater than left. Stable cavitary lesion in the superior segment of the right lower lobe. Stable areas of bronchiectasis, bronchial wall thickening, mucus plugging and nodular opacities in the right middle lobe and bilateral lower lobes, again right greater than left. Coronary artery calcification EKG REVIEW: Sinus tachycardia ventricular rate 140 beats per minute. No ST elevations, no depressions. Left axis deviation. Poor quality study, lots of artifact, QTC 416. ASSESSMENT AND PLAN: 1. Acute hypoxic respiratory failure appears multifactorial 2. Acute respiratory acidosis and hypercarbic state 3. Acute COPD exacerbation 4. COVID 19 infection without evidence of sepsis 5. Clinical dehydration 6. History post substance abuse 7. Reactive leukocytosis Transferred to ICU, BiPAP, repeat biomarkers in the morning including blood gas, continue with steroids and albuterol inhalers, encourage p.o. hydration, repeat labs in am. GI PROPHYLAXIS: oral omeprazole when off bipap DVT PROPHYLAXIS: on Lovenox Critical care time used for critical evaluation of this patient, diagnosis, treatment and coordination of care, review her records and documentation TOTAL CRITICAL CARE TIME 90 MIN . Patient's care was discussed in detail with Dr. Hernandes. He is aware of all the above as well as the plan of care for this patient. Physical Exam Vital Signs: Vital Signs: Last Vital Signs Temp 97.6 F 09/03/20 19:41 Pulse 114 H 09/03/20 19:41 Resp 32 H 09/03/20 22:57 BP 107/53 L 09/03/20 19:41 Pulse Ox 97 09/03/20 21:11 Body Mass Index 19.1 Objective Data Labs CBC & Chem 7: 09/04/20 05:44 09/04/20 05:44 Labs: Laboratory Results - last 24 hr 09/03/20 09/03/20 09/03/20 07:54 07:54 07:54 WBC 14.6 H RBC 4.24 L Hgb 12.1 L Hct 38.3 L MCV 90.3 MCH 28.5 MCHC 31.6 RDW 17.5 H Plt Count 553 H MPV 9.4 Immature Gran % (Auto) 0.2 Neut % (Auto) 76.4 H Lymph % (Auto) 8.9 L [place] % (Auto) 13.5 H Eos % (Auto) 0.8 Baso % (Auto) 0.2 Lymph # (Auto) 1.3 [place] # (Auto) 2.0 H Eos # (Auto) 0.1 Baso # (Auto) 0.0 Abs Immat Gran (auto) 0.03 Absolute Neuts (auto) 11.1 H Absolute Nucleated RBC 0.000 Nucleated RBC % (auto) 0.0 Smear Tech's Comments VERIFIED ABG pH ABG pCO2 ABG pO2 ABG HCO3 ABG O2 Saturation ABG Base Excess Oxygen Given Sodium 136 Potassium 5.1 Chloride 89 L Carbon Dioxide 35 H Anion Gap 17 BUN 14 D Creatinine 0.67 Estim Creat Clear Calc 101.0 Estimated GFR > 60 Random Glucose 106 Lactic Acid 2.2 H* Lactic Acid Fup @ 2Hr Calcium 8.8 D Ferritin 446 H Troponin I High Sens B-Natriuretic Peptide Procalcitonin COVID-19 (LINDA) COVID-19 Clin Com 09/03/20 09/03/20 09/03/20 07:54 07:54 16:11 WBC RBC Hgb Hct MCV MCH MCHC RDW Plt Count MPV Immature Gran % (Auto) Neut % (Auto) Lymph % (Auto) [place] % (Auto) Eos % (Auto) Baso % (Auto) Lymph # (Auto) [place] # (Auto) Eos # (Auto) Baso # (Auto) Abs Immat Gran (auto) Absolute Neuts (auto) Absolute Nucleated RBC Nucleated RBC % (auto) Smear Tech's Comments ABG pH ABG pCO2 ABG pO2 ABG HCO3 ABG O2 Saturation ABG Base Excess Oxygen Given Sodium Potassium Chloride Carbon Dioxide Anion Gap BUN Creatinine Estim Creat Clear Calc Estimated GFR Random Glucose Lactic Acid Lactic Acid Fup @ 2Hr 1.0 Calcium Ferritin Troponin I High Sens < 3.5 B-Natriuretic Peptide 29 Procalcitonin 0.03 COVID-19 (LINDA) COVID-[employer] 09/03/20 09/03/20 16:12 20:23 WBC RBC Hgb Hct MCV MCH MCHC RDW Plt Count MPV Immature Gran % (Auto) Neut % (Auto) Lymph % (Auto) [place] % (Auto) Eos % (Auto) Baso % (Auto) Lymph # (Auto) [place] # (Auto) Eos # (Auto) Baso # (Auto) Abs Immat Gran (auto) Absolute Neuts (auto) Absolute Nucleated RBC Nucleated RBC % (auto) Smear Tech's Comments ABG pH 7.23 L ABG pCO2 93 H* ABG pO2 150 H ABG HCO3 38 H ABG O2 Saturation 99.0 ABG Base Excess 7.2 Oxygen Given 4 L Sodium Potassium Chloride Carbon Dioxide Anion Gap BUN Creatinine Estim Creat Clear Calc Estimated GFR Random Glucose Lactic Acid Lactic Acid Fup @ 2Hr Calcium Ferritin Troponin I High Sens B-Natriuretic Peptide Procalcitonin COVID-19 (LINDA) Positive A COVID-19 [facility] See Note Progress Note: A&P Time Spent With Patient Time: Total time spent is greater than 50% in coordination of care (as documented) at patient's floor/unit and/or counseling patient: Total time spent with greater than 50% in coordination of care (as documented) at patient's floor/unit and/or counseling patient:: 90
[2020-09-04] VITALS (20 sets, daily range): BP systolic 91–120; BP diastolic 47–80; PULSE 93–124; RESP 15–31; TEMP 36.2–36.7; O2SAT 94–99; BMI 15.7
[2020-09-04 06:05] LABS: Basophils Percent Auto 0.2 % (0-2); Eosinophils Percent Auto 0.1 % (0-4); Imm Gran Abs Auto 0.05 X10*3/uL (0.00-0.03); Imm Gran Pct Auto 0.3 % (0.0-0.4); Lymphocytes Absolute Auto 1.5 X10*3/uL (1.2-4.9); Lymphocytes Percent Auto 9.9 % (20-40); MANUAL DIFF FLAG SCAN; Mean Corpuscular HGB Conc 31.4 g/dl (31.0-36.0); Mean Corpuscular Hemoglobin 28.3 pg (27.0-33.0); Mean Platelet Volume 9.5 fL (9.4-12.4); Monocytes Absolute Auto 1.6 X10*3/uL (0.1-1.2); Monocytes Percent Auto 10.6 % (2-11); Neutrophils Absolute Auto 11.8 X10*3/uL (2.0-8.3); Neutrophils Percent Auto 78.9 % (45-73); Platelet Count 443 X10*3/uL (160-400); Red Blood Count 3.89 X10*6/uL (4.60-5.80); Red Cell Distribution Width 17.3 % (11.0-16.0); SCAN SMEAR FLAG 1
[2020-09-04 06:18] LABS: Base Excess VBG 6.3 mmol/L; HCO3 VBG 31 mmol/L; Oxygen Saturation VBG 78.7 %; PCO2 VBG 46 mmhg; PO2 VBG 35 mmhg; pH VBG 7.45 (7.32-7.43)
[2020-09-04 06:32] LABS: Magnesium 2.2 mg/dL (1.6-2.6)
[2020-09-04 06:36] LABS: SLIDE REVIEW VERIFIED
[2020-09-04 06:40] LABS: Anion Gap 17 (12-20); Blood Urea Nitrogen 12 mg/dL (9-16); C Reactive Protein 18.23 mg/dL (< or = 0.50); Calcium 8.4 mg/dL (8.4-10.2); Carbon Dioxide 32 mmol/L (22-29); Chloride 89 mmol/L (96-108); Creatinine Clr Calc Pharmacy 116.7; Estimated Glomerular Filt Rate > 60; Glucose Random 58 mg/dL (60-115); Potassium 4.6 mmol/l (3.3-5.1); Sodium 133 mmol/L (135-145)
[2020-09-04 06:48] LABS: Ferritin 551 ng/mL (20-250)
[2020-09-04 06:57] LABS: D Dimer 2411 NG/ML
--- NOTE | 2020-09-04 07:00 | PC.NURSE ---
Addendum entered by Rachid Cedeño RN 09/04/20 08:34: HR running in 120's since transferred to ICU, Ruddy De Leon made aware - no orders given at time. Patient tolerating HR. Original Note: Received patient in ICU 262, from [facility] unit as transfer for need for bipap @ approx 2300, lethargy, abnormal ABG's. Patient tolerating bipap 18/8, fio2 35%, 02sat high 90's No resp distress. Non product cough. Arousable, up x1 to side of bed suddenly, voided on floor. Patient reeducated about using urinal. Patient taken off bipap to 2 liters nasal cannula at approx 0630 r/t critical lab value random glucose 58, given 2 cups of apple juice, no s/s of hypoglycemia noted. Patient tolerated PO intake. Vitals stable - afebrile. High fall risk, telesitter in place.
[2020-09-04] MEDS: 0.9 % Sodium Chloride Flush 3 ML SYRINGE IVFLUSH ×2 (08:45→16:00)
[2020-09-04] MEDS: buPROPion HCl XL 300 MG TAB.ER.24H PO (08:45)
[2020-09-04] MEDS: dexAMETHasone sod phosphate 4 MG/ML VIAL 6 MG IVPUSH (08:45)
--- NOTE | 2020-09-04 09:51 | MHC.CM.PN ---
pt lives c his jacqueline in their apt. she can help him c any needs he may have at dc, this will include a ride home. pt is active c home o2 by rekha. pt denies the need for vna at this time. dc plan is home c home o2. cm to cont. to follow.
--- NOTE | 2020-09-04 10:36 | P.EN_ITS ---
Event Note Date of Service: 09/04/20 Event Note: I SAW THIS PATIENT IN THE INTENSIVE CARE UNIT FOR PULMONARY EVALUA TION AND MANAGEMENT. ADMITTED YESTERDAY THROUGH EMERGENCY ROOM, TESTED POSITIVE FOR COVID -19 FOR HIS AGITATION HE WAS GIVEN LORAZEPAM, AND FOR HYPOXEMIA CAPPED ON OXYGEN. HE BECAME SOMEWHAT UP ATTENDED, AND ABGS SHOWED ACUTE RESPIRATORY ACIDOSIS. PATIENT TREATED IN THE ICU OVERNIGHT WITH BIPAP ONLY FOR BRIEF. OXYGEN FLOW CONTROLLED DOWN TO 2 L/MINUTE. HIS MENTAL STATUS HAS DEFINITELY IMPROVED. ANNAMARIA VENOUS BLOOD GAS THIS MORNING, PH 7.45 PCO2 46 PO2 35, INDICATES THAT HIS ACUTE RESPIRATORY FAILURE IS MUCH IMPROVED. HE WILL NOW BE TRANSFERRED TO [facility] AND TREATED FOR ACUTE EXACERBATION OF COPD. FAR COVID-19, POSITIVE DOES CONCERNED HE DOES NOT HAVE ANY ACUTE SYMPTOMS OF COVID AT THIS TIME. HIS HYPOXEMIA PRE DATES THIS ADMISSION. FULL PULMONARY CONSULT NOTE IS DICTATED.
--- NOTE | 2020-09-04 14:44 | PC.NURSE ---
SHIFT NOTE PT NOTED TO BE TURKISH SPEAKING ONLY USE OF EDUCATION ADMINISTRATIVE ASSISTANT SERVICES TO ASSESS PT WELL ANOTHER NURSE WITHIN THE DEPARTMENT. PT OOB TO CHAIR AND EXPLAINED THE USE OF A URINAL. PT NOTED TO REMAIN TACHYCARDIAC HR 110-120 WITH OCC PVCS NOTED, PROVIDER AWARE OF HR- NO NEW ORDERS GIVEN. PT REMAINS OFF BIPAP ON 2- 3 LITERS NC. WILL CONTINUE TO ASSESS AND MONITOR
--- NOTE | 2020-09-04 17:54 | P.PNCC_ITS ---
Subjective Subjective Date of Service: 09/04/20 Interval History: Mr. Baeza was transferred down to ICU last night bec of hypercarbic resp failure requiring BiPAP. The patient is a 65-year-old male with underlying history of COPD 2? tobacco abuse, O2- and steroid-dependent, with CO2 retention (as documented on blood gases and by elevated serum bicarb levels), history of tuberculosis, bronchiectasis, cocaine abuse, and prior h/o pneumonia. 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 He also requested a COVID test because his niece who is living with him is COVID positive. On presentation, c/o shortness of breath, he denied fevers chills cough or body aches While the patient was in the emergency room, he started becoming tachypneic, heart rate in the 150s. Labs and CXR were ordered. Serum bicarb was 35. . His CXR was unchanged from a film from last week and another one from a month ago. CTPA was done, was consistent with the patient's previous TB/COPD disease; no PE, RV size probably normal, no change from CTPA of 08/20/20. The patient was treated with nebs and steroids. He was very anxious and was also given Ativan 1 mg x 2. He was also given Zosyn for possible pneumonia, and 2 L of no rmal saline IV with minimal improvement of his tachycardia. The patient was admitted to Medicine with a diagnosis of COPD exacerbation. His COVID LINDA came back positive; was negative on 08/20, and had negative COVID PCR on 08/05 and 06/01 of last year. He was started on bronchodilators and dexame thasone 6 mg daily. After admission to the [facility], an ABG was done b/o respiratory distress and drop in his Sat to 83%. On 4L NC, ABG showed a pH of 7.23/93/150/+7. The patient appeared to be lethargic and not breathing well. He was placed on BiPAP and transferred to the ICU. In ICU was alert and responsive, but in some resp distress on the BiPAP, using accessory muscles. Sat was 99% on 35% biPAP. He had expiratory wheezing throughout. He was given nebulizers. He stayed on BiPAP overnight and came off easily this morning. On exam, he?s sitting up in a chair, with breathing easy, with Sat 98% on 2L NC. Looks thoroughly nontoxic, in absolutely no distress. See Vital Signs below. Persistent sinus tachycardia in 110?s (which he?s had dating back to May, 2020), No JVD, Normal exp phase. No edema. LABORATORY DATA: As below. Notably, venous pCO2 from this morning was 46, white count is holding at 15,D-dimer is 2411 (altho was 2600 on 08/20), ferritin is 551, CRP is 18; procalcitonin yesterday was 0.03. IMPRESSION: 1. Baseline COPD with CO2 retention. 2. Probable COPD exacerbation. I am going to change the Decadron to Solu-Medrol 40 mg tid. 3. Hypoxemic and hypercapnic respiratory failure 2? to above. 4. Toxic encephalopathy secondary to Ativan was likely a contributing factor to his hypercarbia. 5. COVID-19 virus infection. At this point, no evidence of COVID pneumonia. His pulmonary status is basically at baseline. He?s getting steroids for his COPD exacerbation. Discussed remdesivir and plasma with Dr. Canseco. No indication for remdesivir at this point, but plasma might be helpful, so I?ve ordered one unit. I?m also going to write him for Zinc. 6. Sinus tachycardia. Appears chronic. Cardiology can see him here or he can have an elective w/u. 7. ID. I?ll put him on Zitrhomax 250 mg po daily x 5 days for COPD. Time: . Physical Exam Vital Signs: Vital Signs: Last Vital Signs Temp 97.6 F 09/04/20 03:00 Pulse 110 H 09/04/20 16:00 Resp 23 H 09/04/20 16:00 BP 99/63 09/04/20 16:00 Pulse Ox 97 09/04/20 16:00 Body Mass Index 15.7 Objective Data Labs CBC & Chem 7: 09/04/20 05:44 09/04/20 05:44 Labs: Laboratory Results - last 24 hr 09/03/20 09/04/20 09/04/20 20:23 05:43 05:44 WBC 15.0 H RBC 3.89 L Hgb 11.0 L Hct 35.0 L MCV 90.0 MCH 28.3 MCHC 31.4 RDW 17.3 H Plt Count 443 H MPV 9.5 Immature Gran % (Auto) 0.3 Neut % (Auto) 78.9 H Lymph % (Auto) 9.9 L [place] % (Auto) 10.6 Eos % (Auto) 0.1 Baso % (Auto) 0.2 Lymph # (Auto) 1.5 [place] # (Auto) 1.6 H Eos # (Auto) 0.0 Baso # (Auto) 0.0 Abs Immat Gran (auto) 0.05 H Absolute Neuts (auto) 11.8 H Absolute Nucleated RBC 0.000 Nucleated RBC % (auto) 0.0 Smear Tech's Comments VERIFIED D-Dimer ABG pH 7.23 L ABG pCO2 93 H* ABG pO2 150 H ABG HCO3 38 H ABG O2 Saturation 99.0 ABG Base Excess 7.2 VBG pH 7.45 H VBG pCO2 46 VBG pO2 35 VBG HCO3 31 VBG O2 Saturation 78.7 VBG Base Excess 6.3 Oxygen Given 4 L Sodium Potassium Chloride Carbon Dioxide Anion Gap BUN Creatinine Estim Creat Clear Calc Estimated GFR Random Glucose Calcium Magnesium Ferritin C-Reactive Protein Blood Type Antibody Screen 09/04/20 09/04/20 09/04/20 05:44 05:44 05:44 WBC RBC Hgb Hct MCV MCH MCHC RDW Plt Count MPV Immature Gran % (Auto) Neut % (Auto) Lymph % (Auto) [place] % (Auto) Eos % (Auto) Baso % (Auto) Lymph # (Auto) [place] # (Auto) Eos # (Auto) Baso # (Auto) Abs Immat Gran (auto) Absolute Neuts (auto) Absolute Nucleated RBC Nucleated RBC % (auto) Smear Tech's Comments D-Dimer 2411 ABG pH ABG pCO2 ABG pO2 ABG HCO3 ABG O2 Saturation ABG Base Excess VBG pH VBG pCO2 VBG pO2 VBG HCO3 VBG O2 Saturation VBG Base Excess Oxygen Given Sodium 133 L Potassium 4.6 Chloride 89 L Carbon Dioxide 32 H Anion Gap 17 BUN 12 Creatinine 0.58 Estim Creat Clear Calc 116.7 Estimated GFR > 60 Random Glucose 58 L* Calcium 8.4 Magnesium 2.2 Ferritin 551 H C-Reactive Protein 18.23 H Blood Type Antibody Screen 09/04/20 16:35 WBC RBC Hgb Hct MCV MCH MCHC RDW Plt Count MPV Immature Gran % (Auto) Neut % (Auto) Lymph % (Auto) [place] % (Auto) Eos % (Auto) Baso % (Auto) Lymph # (Auto) [place] # (Auto) Eos # (Auto) Baso # (Auto) Abs Immat Gran (auto) Absolute Neuts (auto) Absolute Nucleated RBC Nucleated RBC % (auto) Smear Tech's Comments D-Dimer ABG pH ABG pCO2 ABG pO2 ABG HCO3 ABG O2 Saturation ABG Base Excess VBG pH VBG pCO2 VBG pO2 VBG HCO3 VBG O2 Saturation VBG Base Excess Oxygen Given Sodium Potassium Chloride Carbon Dioxide Anion Gap BUN Creatinine Estim Creat Clear Calc Estimated GFR Random Glucose Calcium Magnesium Ferritin C-Reactive Protein Blood Type A Positive Antibody Screen NEGATIVE Microbiology Microbiology Results: Microbiology 09/03/20 08:10 Blood - Venous Blood Culture - Preliminary No growth after 24 hours. 09/03/20 07:54 Blood - Venous Blood Culture - Preliminary No growth after 24 hours. Progress Note: A&P Time Spent With Patient Time: Total time spent is greater than 50% in coordination of care (as documented) at patient's floor/unit and/or counseling patient: Total time spent with greater than 50% in coordination of care (as documented) at patient's floor/unit and/or counseling patient:: 0
[2020-09-04] MEDS: Acetaminophen 325 MG TABLET 650 MG PO (19:00)
[2020-09-04] MEDS: Enoxaparin Sodium 40 MG/0.4 ML SYRINGE SUBCUT (19:08)
[2020-09-04] MEDS: Zinc Sulfate 220 MG CAPSULE PO (19:09)
[2020-09-04] MEDS: Azithromycin 250 MG TABLET PO (19:10)
--- NOTE | 2020-09-04 19:31 | PC.NURSE ---
Involved with care since 11:00, assumed care at 1500. Patient alert, oriented, sometimes impulsive about voiding in urinal standing at bedside. Taught to use call santoro, with good teachback. Patient was educated regarding his Covid status, with good teachback. Patient on 2 LPM nasal cannula, spo2 in mid 90's; no SOB; LS were clear uppers and inspiratory rhonchi on RLL and dim LLL. Patient educated about his medications with good teachback. Patient with report of back pain, medicated with tylenol at 1900. Patient with good appetite and fluids. Communicated with in Turkmen, declined interpretter services this evening.
[2020-09-05] VITALS (11 sets, daily range): BP systolic 95–127; BP diastolic 46–75; PULSE 83–103; RESP 10–20; TEMP 36.3–36.8; O2SAT 88–98; BMI 15.7
[2020-09-05] MEDS: 0.9 % Sodium Chloride Flush 3 ML SYRINGE IVFLUSH ×3 (00:27→17:06)
[2020-09-05] MEDS: guaiFENesin DM 100/10/5 ML 5 ML SYRUP PO ×2 (03:42→07:38)
[2020-09-05 05:29] LABS: Hematocrit 30.6 % (42-52); Hemoglobin 9.6 g/dl (14.0-18.0); Imm Gran Abs Auto 0.02 X10*3/uL (0.00-0.03); Imm Gran Pct Auto 0.4 % (0.0-0.4); Lymphocytes Absolute Auto 0.4 X10*3/uL (1.2-4.9); MANUAL DIFF FLAG SCAN; Mean Corpuscular HGB Conc 31.4 g/dl (31.0-36.0); Mean Corpuscular Hemoglobin 28.2 pg (27.0-33.0); Mean Platelet Volume 9.3 fL (9.4-12.4); Monocytes Absolute Auto 0.2 X10*3/uL (0.1-1.2); Neutrophils Absolute Auto 4.7 X10*3/uL (2.0-8.3); Neutrophils Percent Auto 89.6 % (45-73); Platelet Count 393 X10*3/uL (160-400); Red Cell Distribution Width 16.6 % (11.0-16.0); SCAN SMEAR FLAG 1; White Blood Count 5.3 X10*3/uL (4.8-10.8)
[2020-09-05 05:34] LABS: Base Excess VBG 23.2 mmol/L; HCO3 VBG 51 mmol/L; PCO2 VBG 82 mmHg; PO2 VBG 134 mmHg
[2020-09-05 05:52] LABS: SLIDE REVIEW VERIFIED
[2020-09-05 06:07] LABS: Anion Gap 11 (12-20); Blood Urea Nitrogen 10 mg/dL (9-16); Calcium 8.3 mg/dL (8.4-10.2); Chloride 90 mmol/L (96-108); Creatinine Clr Calc Pharmacy 73.5; Estimated Glomerular Filt Rate > 60; Glucose Random 193 mg/dL (60-115); Potassium 4.8 mmol/l (3.3-5.1); Sodium 139 mmol/L (135-145)
[2020-09-05 06:09] LABS: Carbon Dioxide 43 mmol/L (22-29)
[2020-09-05 06:21] LABS: Ferritin 565 ng/mL (20-250)
[2020-09-05 07:12] LABS: D Dimer 2041 NG/ML
--- NOTE | 2020-09-05 07:31 | PC.NURSE ---
Shift eval 7p-7a - Patient calm, cooperative, CIWA 0. Convalescent plasma ready and given to patient - consent obtained w/ Ruddy PRIDE. Vitals remain stable. Tolerating 2 litiers nasal cannula. Afebrile - Patient resting / sleeping, arousable. Voiding in urinal.
[2020-09-05] MEDS: buPROPion HCl XL 300 MG TAB.ER.24H PO (07:38)
[2020-09-05] MEDS: Zinc Sulfate 220 MG CAPSULE PO (07:38)
[2020-09-05] MEDS: Fluticasone/Vilanterol 200/25 BLST.W.DEV 1 PUFF INHALE (07:48)
[2020-09-05] MEDS: Albuterol Sulfate 90 MCG 8 GM INHALER 4 PUFF INHALE ×3 (07:48→15:27)
[2020-09-05] MEDS: Acetaminophen 325 MG TABLET 650 MG PO ×2 (08:34→22:23)
--- NOTE | 2020-09-05 10:18 | MHC.CLN ---
PT IS MILDLY MALNOURISHED WILL START ENSURE BID TO INCREASE KCALS SEE ALSO CLINICAL NUTRITION ASSESSMENT
--- NOTE | 2020-09-05 13:14 | CONS_ITS ---
DATE OF SERVICE: 09/04/2020 HISTORY OF PRESENT ILLNESS: This 65-year-old gentleman is seen today in the intensive care unit while he is recovering from acute on chronic respiratory failure. The patient is difficult to communicate with, although he is quite alert, his conversation is not very clear. The review of the records indicate that he was admitted here just last week for an acute exacerbation of COPD and then he signed out against medical advice on 08/28. The patient came to the emergency room yesterday with increased respiratory distress and agitation. He was noted to be hypoxemic and started on oxygen supplementation. He does have oxygen at home but reported that for about 4 to 5 hours there was power outage and he could not use the oxygen. Thus, he became more short of breath and weak. While he was agitated, he was given a dose of lorazepam in the emergency room. Thereafter, he became somewhat obtunded and the arterial blood gases showed an acute on chronic respiratory failure with elevated CO2 to 93. The patient required BiPAP treatment and was admitted in intensive care unit. He was treated with BiPAP overnight and in the morning hours, he woke up and started breathing okay thus the BiPAP was removed. The patient has had no fever or chills or chest pain. REVIEW OF SYSTEMS: Difficult to obtain, but it mainly includes cough, shortness of breath, general weakness. PAST MEDICAL HISTORY: Well recorded and documented in the electronic records at hospital because he has been admitted several times. He is a known case of advanced chronic obstructive pulmonary disease, has frequent exacerbations. He has bronchiectasis and cystic findings in the lungs. He has been diagnosed to have mycobacterium avium infection and in the past has been started on 4 antibiotics, but he did not take them and does his SYED are somewhat untreated. The patient has had pneumonia many times. SOCIAL HISTORY: The patient has history of smoking cigarettes and also history of cocaine abuse. CURRENT MEDICATIONS: At home included Breo 1 puff daily, Incruse Ellipta 1 inhalation daily, albuterol sulfate by updraft q.4 to 6 hours, Atrovent HFA 2 puffs q.i.d., and he is supposed to be on oxygen 2 L/minute. PHYSICAL EXAMINATION: GENERAL: Examination reveals that this 65-year-old gentleman is sitting up in the bed. He is talking continuously, does not seem to be in any distress at this time. VITAL SIGNS: His heart rate is 110, respiratory rate 22, O2 saturation 97 on room air at this time. Arterial blood gases on 09/03; pH 7.23, pCO2 of 93, PO2 of 150, bicarb 38. Venous ABG this morning is as follows; pH 7.45, pCO2 of 46, PO2 of 35. CBC: White cell count 15.0, hemoglobin 11, it should be noted that he does have mild leukocytosis secondary to chronic steroid use. Sodium 133, potassium 4.6, chloride 89, blood glucose 58. CLINICAL IMPRESSION: 1. Acute on chronic respiratory failure, improved. 2. His acute respiratory failure is probably precipitated by use of lorazepam and excessive use of oxygen, but he may have underlying excessive use of narcotics. 3. Chronic cystic lung disease/bronchiectasis. 4. History of mycobacterium avium. RECOMMENDATION: 1. At this point, I will keep him on oxygen supplement to keep O2 saturation just above 90%, and if it can be maintained on room air, then he should not have to use oxygen. 2. He can continue to use his regular inhalers. 3. DuoNeb updrafts q.6 hours while awake. 4. Short course of IV Solu-Medrol. 5. It should be noted that the patient had bronchoscopy by Dr. Sosa and the culture reports are pending. Thank you very much for asking me to see this patient. I will be glad to follow him along. MD MARIA G Schulte/NIYA / [phone]
--- NOTE | 2020-09-05 13:50 | PM.PNPUL ---
Subjective Subjective Date of Service: 09/05/20 Principal diagnosis: COPD, ADVANCED, ACUTE ON CHRONIC RESPIRATORY FAILURE Interval history: THIS 65 YEARS OLD GENTLEMAN, REMAINS SHORT OF BREATH USUAL REQUIRING OXYGEN, ANXIOUS TO GO HOME. DID NOT USE BIPAP LAST NIGHT. HIS VENOUS BLOOD GAS STUDY SHOWS MARKED HYPERCAPNIA AGAIN. Objective Data Labs CBC & Chem 7: 09/05/20 05:18 09/05/20 05:18 Labs: Laboratory Results - last 24 hr 09/04/20 09/05/20 09/05/20 16:35 05:18 05:18 WBC 5.3 RBC 3.40 L Hgb 9.6 L Hct 30.6 L MCV 90.0 MCH 28.2 MCHC 31.4 RDW 16.6 H Plt Count 393 MPV 9.3 L Immature Gran % (Auto) 0.4 Neut % (Auto) 89.6 H Lymph % (Auto) 7.0 L [place] % (Auto) 3.0 Eos % (Auto) 0.0 Baso % (Auto) 0.0 Lymph # (Auto) 0.4 L [place] # (Auto) 0.2 Eos # (Auto) 0.0 Baso # (Auto) 0.0 Abs Immat Gran (auto) 0.02 Absolute Neuts (auto) 4.7 Absolute Nucleated RBC 0.000 Nucleated RBC % (auto) 0.0 Smear Tech's Comments VERIFIED D-Dimer 2040 VBG pH VBG pCO2 VBG pO2 VBG HCO3 VBG O2 Saturation VBG Base Excess Sodium Potassium Chloride Carbon Dioxide Anion Gap BUN Creatinine Estim Creat Clear Calc Estimated GFR Random Glucose Calcium Ferritin C-Reactive Protein Blood Type A Positive Antibody Screen NEGATIVE 09/05/20 09/05/20 05:18 05:18 WBC RBC Hgb Hct MCV MCH MCHC RDW Plt Count MPV Immature Gran % (Auto) Neut % (Auto) Lymph % (Auto) [place] % (Auto) Eos % (Auto) Baso % (Auto) Lymph # (Auto) [place] # (Auto) Eos # (Auto) Baso # (Auto) Abs Immat Gran (auto) Absolute Neuts (auto) Absolute Nucleated RBC Nucleated RBC % (auto) Smear Tech's Comments D-Dimer VBG pH 7.40 VBG pCO2 82 VBG pO2 134 VBG HCO3 51 VBG O2 Saturation 99.0 VBG Base Excess 23.2 Sodium 139 Potassium 4.8 Chloride 90 L Carbon Dioxide 43 H* D Anion Gap 11 L BUN 10 Creatinine 0.58 Estim Creat Clear Calc 73.5 Estimated GFR > 60 Random Glucose 193 H D Calcium 8.3 L Ferritin 565 H C-Reactive Protein 18.00 H Blood Type Antibody Screen Microbiology Microbiology Results: Microbiology 09/03/20 08:10 Blood - Venous Blood Culture - Preliminary No growth after 48 hours. 09/03/20 07:54 Blood - Venous Blood Culture - Preliminary No growth after 48 hours. Review of Systems Review of Systems Yes Unobtainable due to mental status (But he remains SOB , as usual , which may be his baseline . ) Reports Abnormal speech present Physical Exam Vital Signs: Vital Signs: Last Vital Signs Temp 98.3 F 09/05/20 12:00 Pulse 102 H 09/05/20 13:15 Resp 17 09/05/20 12:00 BP 112/69 09/05/20 12:00 Pulse Ox 95 09/05/20 12:00 Body Mass Index 15.7 Const: Other: He is chronically sick looking, very thin build, short of breath even at rest. General: no acute distress, alert and awake Orientation/consciousness: patient oriented x3 HENMT: Head: Yes normal to inspection General nose exam: No nasal polyps present and No nasal discharge present Face and sinus: Yes sinuses nontender Mouth: oropharynx normal Throat: Yes posterior oropharynx normal Eyes: General: appearance normal, both eyes and all related structures Neck: Neck: Yes normal visual inspection, Yes no lymphadenopathy, Yes trachea midline and Yes no JVD Thyroid: Thyroid normal Chest: Chest palpation & inspection: normal inspection of the chest and normal palpation of entire chest wall Resp: Effort & Inspection: prolonged expiratory phase Auscultation: crackles (over bases .) and diminished lung sounds Cardio: Palpation: normal PMI Rate: regular rate Rhythm: regular rhythm Heart sounds: Gallop heart sound present and Murmur heart sound present Peripheral pulses: Peripheral pulses 2+ throughout GI: Palpation (GI): Soft to palpation, Tenderness to palpation present (GI), No hepatosplenomegaly present and Palpable mass present Auscultation: normal bowel sounds Back/Spine/Pelvis: Thoracic/Lumbar Spine: thoracic and lumbar spine normal to inspection Skin: General skin exam: no rashes or lesions noted Neuro: General: patient oriented x3 and no focal motor deficits Cranial nerves: Yes CN's II-XII intact bilaterally Speech: Abnormal speech present Extrem: General: Yes normal to inspection, Yes no clubbing, cyanosis or edema, Yes no calf tenderness and Yes venous stasis dermatitis Psych: Speech and movement: Normal speech and movement present Assessment and Plan Assessment and plan (1) COVID-19 virus infection: Problem details: COVID -19 TEST IS POSITIVE , BUT HE IS NOT HAVING ANY SPECIFIC SYMPTOMS . Status: Acute (2) Acute respiratory failure with hypoxia: Problem details: VBGs TODAY GROSSLY ABNORMAL , Ph=7.40 pco2 80 po2 134 Status: Acute Assessment and Plan: HE IS GOING TO NEED , BIPAP , THERAPY AT NIGHTS , AND PRN DURING DAY TIME . BIPAP , WITH PRESSURE SETTING OF 12/6 CMS ORDERED .FOR TONIGHT , WILL CHECK VBGs TOMORROW AM . (3) Acute exacerbation of chronic obstructive pulmonary disease: Problem details: HE HAS ADVANCED COPD WITH BRONCHIECTASIS , AND PAST H/O SYED INFECTION , INACTIVE AT THIS TIME . ON IV SOLUMEDROL , DOXYCYCLINE QND ALBUTEROL UDs . Status: Acute (4) Tachycardia: Status: Acute Time Spent With Patient Time: Total time spent is greater than 50% in coordination of care (as documented) at patient's floor/unit and/or counseling patient: Time with patient: 15 - 24 minutes
--- NOTE | 2020-09-05 14:16 | P.PNIM_ITS ---
Subjective Subjective Date of Service: 09/05/20 Interval History: The patient was seen and evaluated this morning Laying in bed, feels comfortable On 2 L of oxygen, chest still congested any fever, chills or shortness of breath No reported other overnight events. Systemic review: No fever, chills or weakness No chest pain, palpitation No shortness of breath or coughing No abdominal pain, nausea or vomiting No urinary symptoms No any rash or wounds Physical Exam Vital Signs: Vital Signs: Last Vital Signs Temp 98.3 F 09/05/20 12:00 Pulse 102 H 09/05/20 13:15 Resp 17 09/05/20 12:00 BP 112/69 09/05/20 12:00 Pulse Ox 95 09/05/20 12:00 Body Mass Index 15.7 Constitutional : Alert, oriented, not in distress Neck : Normal inspection, Supple Cardiovascular : RRR, S1 S2, no lower extremity edema Respiratory : Decreased bilateral air entry, bilateral scattered wheezes and rhonchi Gastrointestinal: soft, lax, Normal bowel sounds, Non tender Skin : Warm/Dry, No rash Neurological : Alert & oriented x3, No focal deficit Objective Data Current Medications Generic Name Dose Route Start Last Admin Trade Name Freq PRN Reason Stop Dose Admin Acetaminophen 650 mg 09/05/20 08:27 09/05/20 08:34 Acetaminophen 325 Mg Tablet PO 650 mg Q6H PRN Administration Headache Albuterol Sulfate 2.5 mg 09/03/20 17:36 Albuterol Sulfate (0.083%) 2.5 Mg/3 Ml Vial.Neb INHALE QID PRN Wheezing Albuterol Sulfate 4 puff 09/03/20 20:00 09/05/20 13:15 Albuterol Sulfate 90 Mcg 8 Gm Inhaler INHALE 4 puff RQ4H WHILE AWAKE ALFONSO Administration Azithromycin 250 mg 09/04/20 18:00 09/04/20 19:10 Azithromycin 250 Mg Tablet PO 250 mg Q24H ALFONSO Administration Bupropion HCl 300 mg 09/04/20 09:00 09/05/20 07:38 Bupropion Hcl Xl 300 Mg Tab.Er.24h PO 300 mg DAILY ALFONSO Administration Enoxaparin Sodium 40 mg 09/03/20 17:45 09/04/20 19:08 Enoxaparin Sodium 40 Mg/0.4 Ml Syringe SUBCUT 40 mg Q24H ALFONSO Administration Fluticasone Propionate 2 spray 09/03/20 17:36 Fluticasone Propionate Nasal 16 Gm [place] NOSTRIL-B DAILY PRN Nasal Congestion Fluticasone/Vilanterol 1 puff 09/04/20 09:00 09/05/20 07:48 Fluticasone/Vilanterol 200/25 Blst.W.Dev INHALE 1 puff DAILY ALFONSO Administration Guaifenesin/Dextromethorphan 5 ml 09/03/20 17:36 09/05/20 03:42 Guaifenesin Dm 100/10/5 Ml 5 Ml Syrup PO 5 ml Q4H PRN Administration cough Guaifenesin/Dextromethorphan 5 ml 09/05/20 02:31 09/05/20 07:38 Guaifenesin Dm 100/10/5 Ml 5 Ml Syrup PO 5 ml Q4H PRN Administration Cough Ipratropium Everson 4 puff 09/03/20 20:00 09/05/20 12:46 Ipratropium E[place] 1 Puff/17 Mcg Inhaler INHALE Not Given RQ4H WHILE AWAKE [facility] Methylprednisolone Sodium Succinate 40 mg 09/04/20 16:30 09/05/20 07:38 Methylprednisolone Sod Succ/Pf 40 Mg/Ml Vial IVPUSH 40 mg Q8H ALFONSO Administration Nicotine Polacrilex 2 mg 09/03/20 17:36 Nicotine Polacrilex 2 Mg Lozenge BUCCAL Q4H PRN Nicotine Cravings Sodium Chloride 3 ml 09/04/20 00:00 09/05/20 07:38 0.9 % Sodium Chloride Flush 3 Ml Syringe IVFLUSH 3 ml QSHIFT ALFONSO Administration Zinc Sulfate 220 mg 09/04/20 17:55 09/05/20 07:38 Zinc Sulfate 220 Mg Capsule PO 220 mg DAILY ALFONSO Administration Labs CBC & Chem 7: 09/05/20 05:18 09/05/20 05:18 Microbiology Microbiology Results: Microbiology 09/03/20 08:10 Blood - Venous Blood Culture - Preliminary No growth after 48 hours. 09/03/20 07:54 Blood - Venous Blood Culture - Preliminary No growth after 48 hours. Assessment and Plan (1) Acute respiratory failure with hypoxia: Status: Acute (2) COVID-19 virus infection: Status: Acute (3) Tachycardia: Status: Acute (4) COPD (chronic obstructive pulmonary disease): Status: Acute Assessment and Plan: A 65 years old male with PMH of COPD, HX TB, bronchiectasis among others who presented to the hospital with reported shortness of breath and difficulty breathing. Acute hypoxic hypercapnic respiratory failure COVID-19 infection COPD exacerbation CTA of the chest negative for PE, stable cavities with nodular opacities Positive COVID-19 test Continue IV Solu-Medrol Oxygen supplement, to wean down as tolerated Continue albuterol and ipratropium inhalers Appreciated pulmonary evaluation Pending cultures from bronchoscopy No indication for remdesivir Received does of plasma BiPAP at night Toxic encephalopathy Likely secondary to Ativan usage, hypercapnia Improved Smoking history NRT DVT PPX Lovenox
--- NOTE | 2020-09-05 16:06 | MHC.CM.ED ---
No rounds today. Notes from medical record. Pt being followed in ICU by hospitalist service. O2 aat 2l/nc. Uses Bipap at noc.. IV steroids to continue. On home O2. Pt desires home without services with to provide transportation. D/C plan depends on hospital course and recovery. Will follow for d/c needs
[2020-09-05] MEDS: Enoxaparin Sodium 40 MG/0.4 ML SYRINGE SUBCUT (17:06)
[2020-09-05] MEDS: Azithromycin 250 MG TABLET PO (17:06)
[2020-09-05] MEDS: Ipratropium Bromide 1 PUFF/17 MCG INHALER 4 PUFF INHALE (20:19)
[2020-09-06] VITALS (15 sets, daily range): BP systolic 100–141; BP diastolic 49–99; PULSE 85–109; RESP 10–21; TEMP -12.7–36.6; O2SAT 92–100
[2020-09-06] MEDS: 0.9 % Sodium Chloride Flush 3 ML SYRINGE IVFLUSH ×4 (00:18→23:28)
--- NOTE | 2020-09-06 05:43 | PC.NURSE ---
Patient was placed on CPAP at 0030, patient tolerated for 20 minutes and then asked to be placed back on NC. Patient agreed at 0440 to be placed back on CPAP 07/28 28%.
[2020-09-06 06:15] LABS: Hematocrit 33.2 % (42-52); Hemoglobin 10.6 g/dl (14.0-18.0); Mean Corpuscular HGB Conc 31.9 g/dl (31.0-36.0); Mean Corpuscular Hemoglobin 28.1 pg (27.0-33.0); Mean Corpuscular Volume 88.1 fL (80-98); Mean Platelet Volume 9.4 fL (9.4-12.4); NRBC Pct Auto 0.2 /100WBC (0.0-0.2); Platelet Count 424 X10*3/uL (160-400); Red Blood Count 3.77 X10*6/uL (4.60-5.80); Red Cell Distribution Width 16.8 % (11.0-16.0); White Blood Count 9.2 X10*3/uL (4.8-10.8)
[2020-09-06 06:20] LABS: Base Excess VBG 22.3 mmol/L; HCO3 VBG 50 mmol/L; PCO2 VBG 75 mmHg; PO2 VBG 65 mmHg; pH VBG 7.43 (7.32-7.43)
[2020-09-06 06:53] LABS: Anion Gap 13 (12-20); Blood Urea Nitrogen 8 mg/dL (9-16); Calcium 8.5 mg/dL (8.4-10.2); Carbon Dioxide 40 mmol/L (22-29); Chloride 86 mmol/L (96-108); Creatinine Clr Calc Pharmacy 77.5; Estimated Glomerular Filt Rate > 60; Glucose Random 176 mg/dL (60-115); Potassium 4.6 mmol/l (3.3-5.1); Sodium 134 mmol/L (135-145)
[2020-09-06] MEDS: Fluticasone/Vilanterol 200/25 BLST.W.DEV 1 PUFF INHALE (07:27)
[2020-09-06] MEDS: Albuterol Sulfate (0.083%) 2.5 MG/3 ML VIAL.NEB INHALE ×3 (07:27→15:19)
[2020-09-06] MEDS: Ipratropium Bromide 1 PUFF/17 MCG INHALER 4 PUFF INHALE ×4 (07:27→20:21)
[2020-09-06] MEDS: buPROPion HCl XL 300 MG TAB.ER.24H PO (08:21)
[2020-09-06] MEDS: Zinc Sulfate 220 MG CAPSULE PO (08:21)
--- NOTE | 2020-09-06 10:27 | P.PNPL_ITS ---
Subjective Subjective Date of Service: 09/06/20 Principal diagnosis: COPD, ADVANCED, ACUTE ON CHRONIC RESPIRATORY FAILURE Interval history: Gentleman claims to be feeling better today. He has usual dyspnea but denies any respiratory distress. Cough and expectoration are minimal. He has been afebrile all along. Did not use the BiPAP last night more than 1 hour. We nose blood gas this morning shows pCO2 of 75 within normal pH. Thus indicating that this is his baseline, status of chronic respiratory failure. His bicarb level is quite elevated due to chronic compensated respiratory failure. Objective Data Labs CBC & Chem 7: 09/06/20 06:07 09/06/20 06:07 Labs: Laboratory Results - last 24 hr 09/03/20 09/06/20 09/06/20 05:55 06:07 06:07 WBC 9.2 RBC 3.77 L Hgb 10.6 L Hct 33.2 L MCV 88.1 MCH 28.1 MCHC 31.9 RDW 16.8 H Plt Count 424 H MPV 9.4 Absolute Nucleated RBC 0.020 H Nucleated RBC % (auto) 0.2 VBG pH VBG pCO2 VBG pO2 VBG HCO3 VBG O2 Saturation VBG Base Excess Sodium 134 L Potassium 4.6 Chloride 86 L Carbon Dioxide 40 H* Anion Gap 13 BUN 8 L Creatinine 0.55 Estim Creat Clear Calc 77.5 Estimated GFR > 60 Random Glucose 176 H Calcium 8.5 SARS-CoV-2 (PCR) DETECTED A 09/06/20 06:07 WBC RBC Hgb Hct MCV MCH MCHC RDW Plt Count MPV Absolute Nucleated RBC Nucleated RBC % (auto) VBG pH 7.43 VBG pCO2 75 VBG pO2 65 VBG HCO3 50 VBG O2 Saturation 90.0 VBG Base Excess 22.3 Sodium Potassium Chloride Carbon Dioxide Anion Gap BUN Creatinine Estim Creat Clear Calc Estimated GFR Random Glucose Calcium SARS-CoV-2 (PCR) Microbiology Microbiology Results: Microbiology 09/03/20 08:10 Blood - Venous Blood Culture - Preliminary No growth after 48 hours. 09/03/20 07:54 Blood - Venous Blood Culture - Preliminary No growth after 48 hours. Review of Systems Review of Systems As mentioned in the interval history. His main issue is continued intermittent cough and shortness of breath. He also complains of generalized weakness. No other significant issues Reports Abnormal speech present Physical Exam Vital Signs: Vital Signs: Last Vital Signs Temp 97.6 F 09/06/20 08:00 Pulse 96 09/06/20 08:00 Resp 10 L 09/06/20 08:00 BP 111/62 09/06/20 08:00 Pulse Ox 97 09/06/20 08:00 Body Mass Index 15.7 Const: Other: Chronically sick looking of a thin build, appears well- nourished. He has usual moderate dyspnea which is his baseline and with that he is quite comfortable at this time General: comfortable, no acute distress, alert and awake Orientation/consciousness: patient oriented x3 HENMT: Head: Yes normal to inspection General nose exam: No nasal polyps present and No nasal discharge present Face and sinus: Yes sinuses nontender Mouth: oropharynx normal Throat: Yes posterior oropharynx normal Eyes: General: appearance normal, both eyes and all related structures Neck: Neck: Yes normal visual inspection, Yes no lymphadenopathy, Yes trachea midline and Yes no JVD Thyroid: Thyroid normal Chest: Chest palpation & inspection: normal inspection of the chest and normal palpation of entire chest wall Resp: Effort & Inspection: prolonged expiratory phase Auscultation: no rhonchi, no wheezes and breath sounds absent Cardio: Palpation: normal PMI Rate: regular rate Rhythm: regular rhythm Heart sounds: no gallops and no murmurs GI: Palpation (GI): Soft to palpation, Tenderness to palpation present (GI), No hepatosplenomegaly present and Palpable mass present Auscultation: normal bowel sounds Back/Spine/Pelvis: Thoracic/Lumbar Spine: thoracic and lumbar spine normal to inspection Skin: General skin exam: no rashes or lesions noted Neuro: General: patient oriented x3, No gait normal (non ambulatory sec to general weakness) and no focal motor deficits Cranial nerves: Yes CN's II-XII intact bilaterally Speech: Abnormal speech present Extrem: General: Yes normal to inspection, Yes no clubbing, cyanosis or edema, Yes no calf tenderness and No venous stasis dermatitis Psych: Speech and movement: Normal speech and movement present Assessment and Plan Assessment and plan (1) COVID-19 virus infection: Problem details: recovering well Status: Acute (2) Acute respiratory failure with hypoxia: Status: Acute (3) Acute exacerbation of chronic obstructive pulmonary disease: Problem details: HE HAS ADVANCED COPD WITH BRONCHIECTASIS , AND PAST H/O SYED INFECTION , INACTIVE AT THIS TIME . ON IV SOLUMEDROL , DOXYCYCLINE QND ALBUTEROL UDs . Status: Acute (4) COPD (chronic obstructive pulmonary disease): Problem details: as above Status: Acute (5) Respiratory failure with hypoxia and hypercapnia: Problem details: He has chronic hypoxemia and hypercapnea . Currently he seems to be at his baseline, with compensated chronic respiratory failure. Status: Acute Assessment and Plan: Ideally he should use BiPAP at night and p.r.n. during the daytime. But he is expected to be non compliant. He should be on low-dose oxygen 2 L/minute and avoid any over oxygenation. We can do overnight oximetry recording, off BiPAP but with O2 2 L/minute, to see if he would qualify for home BiPAP usage. He should be instructed to avoid using any narcotic or opiates . Because of chronically elevated bicarb level I think acetazolamide 250 mg daily would be helpful. Time Spent With Patient Time: Total time spent is greater than 50% in coordination of care (as documented) at patient's floor/unit and/or counseling patient: Time with patient: 25 - 35 minutes
--- NOTE | 2020-09-06 12:02 | P.PNIM_ITS ---
Subjective Subjective Date of Service: 09/06/20 Interval History: The patient was seen and evaluated this morning Sitting in his chair, feels comfortable, dyspnea on exertion On 2 L of oxygen, chest still congested, did not use BiPAP overnight any fever, chills or shortness of breath No reported other overnight events. Systemic review: No fever, chills or weakness No chest pain, palpitation No shortness of breath or coughing No abdominal pain, nausea or vomiting No urinary symptoms No any rash or wounds Physical Exam Vital Signs: Vital Signs: Last Vital Signs Temp 97.6 F 09/06/20 08:00 Pulse 102 H 09/06/20 11:55 Resp 10 L 09/06/20 08:00 BP 111/62 09/06/20 08:00 Pulse Ox 97 09/06/20 08:00 Body Mass Index 15.7 Constitutional : Alert, oriented, not in distress Neck : Normal inspection, Supple Cardiovascular : RRR, S1 S2, no lower extremity edema Respiratory : He chest wall movement bilaterally, not in respiratory distress, requiring oxygen supplement Gastrointestinal: soft, lax, Normal bowel sounds, Non tender Skin : Warm/Dry, No rash Neurological : Alert & oriented x3, No focal deficit Objective Data Current Medications Generic Name Dose Route Start Last Admin Trade Name Freq PRN Reason Stop Dose Admin Acetaminophen 650 mg 09/05/20 08:27 09/05/20 22:23 Acetaminophen 325 Mg Tablet PO 650 mg Q6H PRN Administration Headache Albuterol Sulfate 2.5 mg 09/03/20 17:36 09/06/20 11:53 Albuterol Sulfate (0.083%) 2.5 Mg/3 Ml Vial.Neb INHALE 2.5 mg QID PRN Administration Wheezing Albuterol Sulfate 4 puff 09/03/20 20:00 09/06/20 11:53 Albuterol Sulfate 90 Mcg 8 Gm Inhaler INHALE Not Given RQ4H WHILE AWAKE ALFONSO Azithromycin 250 mg 09/04/20 18:00 09/05/20 17:06 Azithromycin 250 Mg Tablet PO 250 mg Q24H ALFONSO Administration Bupropion HCl 300 mg 09/04/20 09:00 09/06/20 08:21 Bupropion Hcl Xl 300 Mg Tab.Er.24h PO 300 mg DAILY ALFONSO Administration Enoxaparin Sodium 40 mg 09/03/20 17:45 09/05/20 17:06 Enoxaparin Sodium 40 Mg/0.4 Ml Syringe SUBCUT 40 mg Q24H ALFONSO Administration Fluticasone Propionate 2 spray 09/03/20 17:36 Fluticasone Propionate Nasal 16 Gm [place] NOSTRIL-B DAILY PRN Nasal Congestion Fluticasone/Vilanterol 1 puff 09/04/20 09:00 09/06/20 07:27 Fluticasone/Vilanterol 200/25 Blst.W.Dev INHALE 1 puff DAILY ALFONSO Administration Guaifenesin/Dextromethorphan 5 ml 09/03/20 17:36 09/05/20 03:42 Guaifenesin Dm 100/10/5 Ml 5 Ml Syrup PO 5 ml Q4H PRN Administration cough Guaifenesin/Dextromethorphan 5 ml 09/05/20 02:31 09/05/20 07:38 Guaifenesin Dm 100/10/5 Ml 5 Ml Syrup PO 5 ml Q4H PRN Administration Cough Hydroxyzine HCl 25 mg 09/06/20 10:47 Hydroxyzine Hcl 25 Mg Tablet PO Q8H PRN anxiety/restlessness Ipratropium [place] 4 puff 09/03/20 20:00 09/06/20 11:53 Ipratropium [place] 1 Puff/17 Mcg Inhaler INHALE 4 puff RQ4H WHILE AWAKE ALFONSO Administration Methylprednisolone Sodium Succinate 40 mg 09/04/20 16:30 09/06/20 08:20 Methylprednisolone Sod Succ/Pf 40 Mg/Ml Vial IVPUSH 40 mg Q8H ALFONSO Administration Nicotine Polacrilex 2 mg 09/03/20 17:36 Nicotine Polacrilex 2 Mg Lozenge BUCCAL Q4H PRN Nicotine Cravings Sodium Chloride 3 ml 09/04/20 00:00 09/06/20 08:21 0.9 % Sodium Chloride Flush 3 Ml Syringe IVFLUSH 3 ml QSHIFT ALFONSO Administration Zinc Sulfate 220 mg 09/04/20 17:55 09/06/20 08:21 Zinc Sulfate 220 Mg Capsule PO 220 mg DAILY ALFONSO Administration Labs CBC & Chem 7: 09/06/20 06:07 09/06/20 06:07 Microbiology Microbiology Results: Microbiology 09/03/20 08:10 Blood - Venous Blood Culture - Preliminary No growth after 48 hours. 01/12/21 07:54 Blood - Venous Blood Culture - Preliminary No growth after 48 hours. Assessment and Plan (1) Acute respiratory failure with hypoxia: Status: Acute (2) COVID-19 virus infection: Status: Acute (3) Tachycardia: Status: Acute (4) COPD (chronic obstructive pulmonary disease): Status: Acute Assessment and Plan: A 65 years old male with PMH of COPD, HX TB, bronchiectasis among others who presented to the hospital with reported shortness of breath and difficulty breathing. Acute hypoxic hypercapnic respiratory failure COPD exacerbation CTA of the chest negative for PE, stable cavities with nodular opacities Continue albuterol and ipratropium inhalers No growth in cultures from bronchoscopy Hold BiPAP at night To do overnight oximetry to evaluate for the need of BiPAP at home. COVID-19 infection Positive COVID-19 test Continue IV Solu-Medrol Oxygen supplement, to wean down as tolerated Appreciated pulmonary evaluation No indication for remdesivir Received does of plasma Toxic encephalopathy Likely secondary to Ativan usage, hypercapnia Improved Smoking history NRT DVT PPX Lovenox
[2020-09-06] MEDS: acetaZOLAMIDE 250 MG TABLET PO (12:04)
[2020-09-06] MEDS: Acetaminophen 325 MG TABLET 650 MG PO (12:04)
[2020-09-06] MEDS: hydrOXYzine HCL 25 MG TABLET PO ×2 (12:05→23:41)
--- NOTE | 2020-09-06 12:09 | MHC.CM.PN ---
No rounds today. Per notes, pt had CPAP overnight. Met with pt. On NC at 2l. Pt states HCP is on file and his is the HCP. Cannot find HCP in system. Will call to verify. States PCP is Edd Lorenzana. Pt on chronic O2 at home. D/C plan is home with family to transport. Will follow for d/c needs
[2020-09-06] MEDS: Azithromycin 250 MG TABLET PO (16:33)
[2020-09-06] MEDS: Enoxaparin Sodium 40 MG/0.4 ML SYRINGE SUBCUT (16:33)
[2020-09-06] MEDS: Famotidine 20 MG TABLET PO (16:33)
[2020-09-06] MEDS: Albuterol Sulfate 90 MCG 8 GM INHALER 4 PUFF INHALE (20:22)
[2020-09-06] MEDS: guaiFENesin DM 100/10/5 ML 5 ML SYRUP PO (23:40)
[2020-09-07] VITALS (13 sets, daily range): BP systolic 98–123; BP diastolic 61–79; PULSE 82–130; RESP 14–21; TEMP 36–36.9; O2SAT 95–978; BMI 15.0
[2020-09-07 05:37] LABS: HCO3 VBG 37 mmol/L; PCO2 VBG 63 mmHg; PO2 VBG 57 mmHg; pH VBG 7.37 (7.32-7.43)
[2020-09-07 06:04] LABS: Anion Gap 15 (12-20); Blood Urea Nitrogen 16 mg/dL (9-16); Calcium 8.8 mg/dL (8.4-10.2); Carbon Dioxide 32 mmol/L (22-29); Chloride 92 mmol/L (96-108); Creatinine Clr Calc Pharmacy 63.6; Estimated Glomerular Filt Rate > 60; Glucose Random 150 mg/dL (60-115); Potassium 4.9 mmol/l (3.3-5.1); Sodium 134 mmol/L (135-145)
[2020-09-07] MEDS: 0.9 % Sodium Chloride Flush 3 ML SYRINGE IVFLUSH ×2 (07:12→16:16)
[2020-09-07] MEDS: buPROPion HCl XL 300 MG TAB.ER.24H PO (07:13)
[2020-09-07] MEDS: Zinc Sulfate 220 MG CAPSULE PO (07:13)
[2020-09-07] MEDS: Ipratropium Bromide 1 PUFF/17 MCG INHALER 4 PUFF INHALE ×4 (08:18→19:45)
[2020-09-07] MEDS: Fluticasone/Vilanterol 200/25 BLST.W.DEV 1 PUFF INHALE (08:18)
[2020-09-07] MEDS: Albuterol Sulfate 90 MCG 8 GM INHALER 4 PUFF INHALE ×4 (08:18→19:46)
[2020-09-07] MEDS: guaiFENesin DM 100/10/5 ML 5 ML SYRUP PO (08:25)
[2020-09-07] MEDS: acetaZOLAMIDE 250 MG TABLET PO (08:25)
--- NOTE | 2020-09-07 10:40 | PM.PNPUL ---
Subjective Subjective Date of Service: 09/07/20 Principal diagnosis: COPD, ADVANCED, ACUTE ON CHRONIC RESPIRATORY FAILURE Interval history: No significant change in clinical condition. Patient does have moderate amount of dyspnea and cough, but seems to be at baseline. Remains on oxygen 2 L/minute. Did not use BiPAP last night. Overnight oximetry recording which was supposed to be performed, was not done. Objective Data Labs CBC & Chem 7: 09/06/20 06:07 09/07/20 05:26 Labs: Laboratory Results - last 24 hr 09/07/20 09/07/20 05:26 05:26 VBG pH 7.37 VBG pCO2 63 VBG pO2 57 VBG HCO3 37 VBG O2 Saturation 83.0 VBG Base Excess 10.0 Sodium 134 L Potassium 4.9 Chloride 92 L Carbon Dioxide 32 H Anion Gap 15 BUN 16 D Creatinine 0.67 Estim Creat Clear Calc 63.6 Estimated GFR > 60 Random Glucose 150 H Calcium 8.8 Microbiology Microbiology Results: Microbiology 09/03/20 08:10 Blood - Venous Blood Culture - Preliminary No growth after 48 hours. 09/03/20 07:54 Blood - Venous Blood Culture - Preliminary No growth after 48 hours. Physical Exam Vital Signs: Vital Signs: Last Vital Signs Temp 97.3 F 09/07/20 07:23 Pulse 89 09/07/20 07:23 Resp 16 09/07/20 07:23 BP 112/72 09/07/20 07:23 Pulse Ox 97 09/07/20 07:23 Body Mass Index 15.7 Const: Other: Patient is moderately short of breath, of thin build and chronically sick-looking, but he is not in acute distress. Seems to be at his baseline condition. General: no acute distress, alert and awake Orientation/consciousness: patient oriented x3 HENMT: Head: Yes normal to inspection General nose exam: No nasal polyps present and No nasal discharge present Face and sinus: Yes sinuses nontender Mouth: oropharynx normal Throat: Yes posterior oropharynx normal Eyes: General: appearance normal, both eyes and all related structures Neck: Neck: Yes normal visual inspection, Yes no lymphadenopathy, Yes trachea midline and Yes no JVD Thyroid: Thyroid normal Chest: Chest palpation & inspection: normal inspection of the chest and normal palpation of entire chest wall Resp: Other: Breath sounds are distant but equal on both sides. There are scattered inspiratory crackles and expiratory wheezes throughout the chest. Cardio: Palpation: normal PMI Rate: regular rate Rhythm: regular rhythm Heart sounds: Gallop heart sound present and Murmur heart sound present Peripheral pulses: Peripheral pulses 2+ throughout GI: Palpation (GI): Soft to palpation, Tenderness to palpation present (GI), No hepatosplenomegaly present and Palpable mass present Auscultation: normal bowel sounds Back/Spine/Pelvis: Thoracic/Lumbar Spine: thoracic and lumbar spine normal to inspection Skin: General skin exam: no rashes or lesions noted Neuro: General: patient oriented x3, No gait normal (Gait is impaired due to generalized muscular weakness.) and no focal motor deficits Cranial nerves: Yes CN's II-XII intact bilaterally Extrem: General: Yes normal to inspection, Yes no clubbing, cyanosis or edema, Yes no calf tenderness and Yes venous stasis dermatitis Psych: Speech and movement: Normal speech and movement present Assessment and Plan Assessment and plan (1) Respiratory failure with hypoxia and hypercapnia: Problem details: He has chronic hypoxemia and hypercapnea . Currently he seems to be at his baseline, with compensated chronic respiratory failure. Venous blood gas ph=7.37 pco2 63 . imp[roved , and seems to be at his baseline . This patient would benefit by use of BiPAP at nights on an ongoing basis. Just needs overnight oximetry recording on his oxygen 2 L/minute, to qualify him for BiPAP use. Once overnight oximetry recording is completed, he can be discharged to home and can be followed up as outpatient. Status: Acute (2) COVID-19 virus infection: Problem details: recovered Status: Acute (3) Dyspnea: Problem details: Chronic baselone . Status: Acute (4) Acute exacerbation of chronic obstructive pulmonary disease: Problem details: HE HAS ADVANCED COPD WITH BRONCHIECTASIS , AND PAST H/O SYED INFECTION , INACTIVE AT THIS TIME . ON IV SOLUMEDROL , DOXYCYCLINE QND ALBUTEROL UDs . CHANGE IV SOLU-MEDROL TO PREDNISONE 40 MG A DAY, TAPER BY 10 MG EVERY WEEK. COMPLETE COURSE OF DOXYCYCLINE FOR 10 DAYS. CONTINUE ALBUTEROL 2 PUFFS Q 4-6 HOURS BY INHALER OR BY THE NEBULIZER AT HOME. Status: Acute Time Spent With Patient Time: Total time spent is greater than 50% in coordination of care (as documented) at patient's floor/unit and/or counseling patient: Time with patient: 15 - 24 minutes
--- NOTE | 2020-09-07 13:34 | P.PNIM_ITS ---
Subjective Subjective Date of Service: 09/07/20 Interval History: The patient was seen and evaluated this morning Sitting in his chair, feels comfortable, dyspnea on exertion On 2 L of oxygen, chest still congested, did not use BiPAP overnight any fever, chills or shortness of breath No reported other overnight events. Systemic review: No fever, chills or weakness No chest pain, palpitation No shortness of breath or coughing No abdominal pain, nausea or vomiting No urinary symptoms No any rash or wounds Physical Exam Vital Signs: Vital Signs: Last Vital Signs Temp 97.3 F 09/07/20 07:23 Pulse 130 H 09/07/20 12:00 Resp 21 H 09/07/20 12:00 BP 119/79 09/07/20 12:00 Pulse Ox 95 09/07/20 12:00 Body Mass Index 15.7 Constitutional : Alert, oriented, not in distress Neck : Normal inspection, Supple Cardiovascular : RRR, S1 S2, no lower extremity edema Respiratory : On 2L of O2, He chest wall movement bilaterally, not in respiratory distress, requiring oxygen supplement Gastrointestinal: soft, lax, Normal bowel sounds, Non tender Skin : Warm/Dry, No rash Neurological : Alert & oriented x3, No focal deficit Objective Data Current Medications Generic Name Dose Route Start Last Admin Trade Name Freq PRN Reason Stop Dose Admin Acetaminophen 650 mg 09/05/20 08:27 09/06/20 12:04 Acetaminophen 325 Mg Tablet PO 650 mg Q6H PRN Administration Headache Acetazolamide 250 mg 09/07/20 09:00 09/07/20 08:25 Acetazolamide 250 Mg Tablet PO 250 mg DAILY ALFONSO Administration Albuterol Sulfate 2.5 mg 09/03/20 17:36 09/06/20 15:19 Albuterol Sulfate (0.083%) 2.5 Mg/3 Ml Vial.Neb INHALE 2.5 mg QID PRN Administration Wheezing Albuterol Sulfate 4 puff 09/03/20 20:00 09/07/20 11:52 Albuterol Sulfate 90 Mcg 8 Gm Inhaler INHALE 4 puff RQ4H WHILE AWAKE ALFONSO Administration Azithromycin 250 mg 09/04/20 18:00 09/06/20 16:33 Azithromycin 250 Mg Tablet PO 250 mg Q24H ALFONSO Administration Bupropion HCl 300 mg 09/04/20 09:00 09/07/20 07:13 Bupropion Hcl Xl 300 Mg Tab.Er.24h PO 300 mg DAILY ALFONSO Administration Enoxaparin Sodium 40 mg 09/03/20 17:45 09/06/20 16:33 Enoxaparin Sodium 40 Mg/0.4 Ml Syringe SUBCUT 40 mg Q24H ALFONSO Administration Famotidine 20 mg 09/06/20 15:35 09/06/20 16:33 Famotidine 20 Mg Tablet PO 20 mg DAILY PRN Administration Heartburn Fluticasone Propionate 2 spray 09/03/20 17:36 Fluticasone Propionate Nasal 16 Gm [place] NOSTRIL-B DAILY PRN Nasal Congestion Fluticasone/Vilanterol 1 puff 09/04/20 09:00 09/07/20 08:18 Fluticasone/Vilanterol 200/25 Blst.W.Dev INHALE 1 puff DAILY ALFONSO Administration Guaifenesin/Dextromethorphan 5 ml 09/03/20 17:36 09/07/20 08:25 Guaifenesin Dm 100/10/5 Ml 5 Ml Syrup PO 5 ml Q4H PRN Administration cough Guaifenesin/Dextromethorphan 5 ml 09/05/20 02:31 09/05/20 07:38 Guaifenesin Dm 100/10/5 Ml 5 Ml Syrup PO 5 ml Q4H PRN Administration Cough Hydroxyzine HCl 25 mg 09/06/20 10:47 09/06/20 23:41 Hydroxyzine Hcl 25 Mg Tablet PO 25 mg Q8H PRN Administration anxiety/restlessness Ipratropium [place] 4 puff 09/03/20 20:00 09/07/20 11:52 Ipratropium [place] 1 Puff/17 Mcg Inhaler INHALE 4 puff RQ4H WHILE AWAKE ALFONSO Administration Methylprednisolone Sodium Succinate 40 mg 09/04/20 16:30 09/07/20 07:13 Methylprednisolone Sod Succ/Pf 40 Mg/Ml Vial IVPUSH 40 mg Q8H ALFONSO Administration Nicotine Polacrilex 2 mg 09/03/20 17:36 Nicotine Polacrilex 2 Mg Lozenge BUCCAL Q4H PRN Nicotine Cravings Sodium Chloride 3 ml 09/04/20 00:00 09/07/20 07:12 0.9 % Sodium Chloride Flush 3 Ml Syringe IVFLUSH 3 ml QSHIFT ALFONSO Administration Zinc Sulfate 220 mg 09/04/20 17:55 09/07/20 07:13 Zinc Sulfate 220 Mg Capsule PO 220 mg DAILY ALFONSO Administration Labs CBC & Chem 7: 09/06/20 06:07 09/07/20 05:26 Microbiology Microbiology Results: Microbiology 09/03/20 08:10 Blood - Venous Blood Culture - Preliminary No growth after 48 hours. 09/03/20 07:54 Blood - Venous Blood Culture - Preliminary No growth after 48 hours. Assessment and Plan (1) Respiratory failure with hypoxia and hypercapnia: Status: Acute (2) COVID-19 virus infection: Problem details: recovered Status: Acute (3) Dyspnea: Problem details: Chronic baselone . Status: Acute (4) Acute exacerbation of chronic obstructive pulmonary disease: Status: Acute Assessment and Plan: A 65 years old male with PMH of COPD, HX TB, bronchiectasis among others who presented to the hospital with reported shortness of breath and difficulty breathing. Acute hypoxic hypercapnic respiratory failure COPD exacerbation CTA of the chest negative for PE, stable cavities with nodular opacities Continue albuterol and ipratropium inhalers No growth in cultures from bronchoscopy Hold BiPAP at night To do overnight oximetry to evaluate for the need of BiPAP at home. VBG in morning COVID-19 infection Positive COVID-19 test Continue IV Solu-Medrol Oxygen supplement, to wean down as tolerated Appreciated pulmonary evaluation No indication for remdesivir Received dose of plasma Toxic encephalopathy Likely secondary to Ativan usage, hypercapnia Improved Smoking history NRT DVT PPX Lovenox
[2020-09-07] MEDS: Azithromycin 250 MG TABLET PO (17:57)
[2020-09-07] MEDS: Enoxaparin Sodium 40 MG/0.4 ML SYRINGE SUBCUT (17:57)
--- NOTE | 2020-09-07 18:19 | PC.NURSE ---
METAL CHECKER USED FOR ASSESSMENT QUESTIONS. A&O TO SELF AND PLACE, TIME IS VAGUE AND DISORIENTED TO SITUATION. C/O OF HEADACHE AT START OF SHIFT, BUT REFUSED MEDICATION FOR IT. ANXIOUS AND RESTLESS AT TIMES. AFEBRILE. VSS. SR/ST W/ PVC ON TELE. MAINTAINS O2 W/ 2L NC. USES URINAL WITH EASE. ATE 25% OF MEALS. REFUSED BATH, Q2H REPO SELF AND OOB WITH ASSIST TO RECLINER, PILLOWS UTILIZED. TELESITTER IN PLACE FOR SAFETY. PER HOSPITALIST 02 STUDY FOR HOME BIPAP EVALUATION TO BE PERFORMED [facility] 09/07/20. NO BIPAP USED FOR STUDY. WILL PASS ON TO COMING RN AND RT.
[2020-09-07] MEDS: hydrOXYzine HCL 25 MG TABLET PO (23:27)
--- NOTE | 2020-09-08 00:07 | PC.RT ---
Addendum entered by Rebecca Gonsalez 09/08/20 05:41: Pt taken off overnight oximetry at 0525 and transferred up to [facility] [place] 2[place] Original Note: Pt placed on overnight oximetry at 2355 on 2L, sats 97% at this time.
[2020-09-08 04:00] VITALS: BP 92/65; PULSE 88; RESP 14; TEMP 36.9; O2SAT 96
[2020-09-08 06:00] VITALS: BMI 16.1
[2020-09-08 07:17] LABS: pH VBG 7.39 (7.32-7.43)
[2020-09-08 07:18] LABS: Base Excess VBG 6.3 mmol/L; HCO3 VBG 32 mmol/L; PCO2 VBG 53 mmHg; PO2 VBG 64 mmHg
[2020-09-08 07:42] LABS: Anion Gap 14 (12-20); Blood Urea Nitrogen 18 mg/dL (9-16); Calcium 8.8 mg/dL (8.4-10.2); Carbon Dioxide 29 mmol/L (22-29); Chloride 96 mmol/L (96-108); Creatinine Clr Calc Pharmacy 72.9; Estimated Glomerular Filt Rate > 60; Glucose Random 145 mg/dL (60-115); Potassium 4.5 mmol/l (3.3-5.1); Sodium 134 mmol/L (135-145)
[2020-09-08] MEDS: acetaZOLAMIDE 250 MG TABLET PO (07:49)
[2020-09-08] MEDS: 0.9 % Sodium Chloride Flush 3 ML SYRINGE IVFLUSH (07:49)
[2020-09-08] MEDS: Zinc Sulfate 220 MG CAPSULE PO (07:50)
[2020-09-08] MEDS: buPROPion HCl XL 300 MG TAB.ER.24H PO (07:50)
[2020-09-08 08:00] VITALS: BP 103/68; PULSE 97; RESP 16; TEMP 36.8; O2SAT 98
[2020-09-08 08:15] VITALS: PULSE 94; O2SAT 96
[2020-09-08] MEDS: Fluticasone/Vilanterol 200/25 BLST.W.DEV 1 PUFF INHALE (08:15)
[2020-09-08] MEDS: Albuterol Sulfate 90 MCG 8 GM INHALER 4 PUFF INHALE ×2 (08:15→11:40)
[2020-09-08] MEDS: Ipratropium Bromide 1 PUFF/17 MCG INHALER 4 PUFF INHALE ×2 (08:15→11:40)
[2020-09-08] MEDS: Acetaminophen 325 MG TABLET 650 MG PO (09:12)
--- NOTE | 2020-09-08 10:27 | MHC.CM.PN ---
Patient has been medically cleared for dc to home today, no skilled services. Patient is active with [facility] for O2.Patient is on Covid Unit;CM spoke with Angelina @ [phone],and addressed [facility]. Angelina will provide transportation to home and bring a portable O2 tank from home for transport.
[2020-09-08] MEDS: hydrOXYzine HCL 25 MG TABLET PO (10:45)
[2020-09-08 12:00] VITALS: BP 133/73; PULSE 106; RESP 20; TEMP 36.5; O2SAT 98
--- NOTE | 2020-09-08 13:01 | P.DS_ITS ---
DS: Providers Provider Date of Service: 09/08/20 Date of admission: 09/03/20 17:36 Primary care physician: Unknown Physician Consults: 09/03/20 17:36 Consult to Pulmonology Routine Consulting Provider: aKley Lopez Reason for consultation: Hypoxic Res. failure, Covid 19 infection. Need for Remdesivir? DS: Diagnosis Discharge Diagnosis (1) Respiratory failure with hypoxia and hypercapnia: Status: Acute (2) COVID-19 virus infection: Status: Acute Problem details: recovered (3) Dyspnea: Status: Acute Problem details: Chronic baselone . (4) Acute exacerbation of chronic obstructive pulmonary disease: Status: Acute DS: Medications Discharge Medications Home Medications: Home Medications Medication Instructions Recorded Confirmed Atrovent HFA 2 puff PO QID 06/01/20 09/03/20 albuterol sulfate 1 amp INHALATION QID PRN 06/01/20 09/03/20 aspirin 81 mg PO DAILY 06/01/20 09/03/20 atorvastatin 20 mg PO DAILY 06/01/20 09/03/20 montelukast 10 mg PO BEDTIME 06/01/20 09/03/20 sildenafil [Viagra] 0.5 - 1 tab PO DAILY PRN 06/01/20 09/03/20 Breo Ellipta 1 puff PO DAILY 08/05/20 09/03/20 bupropion HCl 150 mg PO BID 08/05/20 09/03/20 ferrous sulfate 325 mg PO DAILY 08/05/20 09/03/20 fluticasone propionate 2 spray INTRANASAL DAILY PRN 08/05/20 09/03/20 ketoconazole 1 appl TOPICAL 2XW 08/05/20 09/03/20 multivitamin 1 tab PO DAILY 08/05/20 09/03/20 nicotine (polacrilex) 2 mg PO Q4H 08/05/20 09/03/20 sennosides [senna] 1 - 2 tab PO DAILY PRN 08/05/20 09/03/20 Incruse Ellipta 1 inh INHALATION DAILY 09/03/20 09/03/20 gabapentin 300 mg PO TID 09/03/20 09/03/20 Previous Rx's Medication Instructions Recorded ipratropium 0.5 mg-albuterol 3 mg 3 ml INHALATION QID 30 Days #360 ml 06/28/20 (2.5 mg base)/3 mL nebulization soln dextromethorphan-guaifenesin 5 ml PO Q4H PRN #100 ml 08/06/20 doxycycline hyclate 100 mg PO DAILY #14 cap 08/21/20 prednisone 20 mg tablet 20 mg PO DAILY 10 Days #15 tab 08/26/20 acetazolamide 250 mg PO DAILY #30 tab 09/08/20 dexamethasone 6 mg PO DAILY #4 tab 09/08/20 dextromethorphan-guaifenesin 5 ml PO Q4H PRN 7 Days ml 09/08/20 DS: Summary Hospital Course Hospital Course: Admission note HPI A 65 years old male with PMH of COPD, HX TB, bronchiectasis among others who presented to the hospital with reported shortness of breath and difficulty breathing. The patient reported presented to the hospital as there was a power failure and his home oxygen was not working. The patient was complaining of palpitation, difficulty breathing and having chills. At time of interview the patient was sleepy after receiving lorazepam for agitation. History was taken mainly from ED provider and notes. CT scan of the chest PE protocol consistent with multiple previously known cavities. Patient received IV antibiotics, steroids and nebulizers with fair response. Hospital course The patient was admitted to the hospital for treatment of acute hypoxic hypercapnic respiratory failure. Required BiPAP treatment at presentation with fair response. Tested positive for COVID-19 infection. Treated with IV steroids, nebulizers and oxygen supplement. He was evaluated by information broker during the hospital stay and had an overnight oxygen study which did not qualify him for BiPAP, given also compliance issues as he refused to use BiPAP in the hospital. His oxygen requirement decreased to 2 L of oxygen. VBG was checked daily N showed significant improvement of his CO2 retention. The the To be discharged on dexamethasone 6 mg daily. To finish total of 10 days. The or to use his home oxygen 2 L all the time. To follow-up with pulmonology as outpatient. Time Spent with Patient Time attestation: Total time spent providing and/or coordinating discharge services: Discharge coordination time: Greater than 30 minutes Physical Exam Vital Signs: Vital Signs: Last Vital Signs Temp 97.7 F 09/08/20 12:00 Pulse 106 H 09/08/20 12:00 Resp 20 09/08/20 12:00 BP 133/73 09/08/20 12:00 Pulse Ox 98 09/08/20 12:00 Body Mass Index 16.1 Constitutional : Alert, oriented, not in distress Neck : Normal inspection, Supple Cardiovascular : RRR, S1 S2, no lower extremity edema Respiratory : On 2L of O2, He chest wall movement bilaterally, not in respiratory distress, requiring oxygen supplement Gastrointestinal: soft, lax, Normal bowel sounds, Non tender Skin : Warm/Dry, No rash Neurological : Alert & oriented x3, No focal deficit DS: Data Data Completed and Pending Completed studies during hospitalization [Text1]: Procedures Detoxification Services for Substance Abuse Treatment (06/01/20) Insertion of Infusion Device into Superior Vena Cava, Percutaneous Approach (06/01/20) Introduction of Vasopressor into Peripheral Vein, Percutaneous Approach (06/01/20) Ultrasonography of Superior Vena Cava, Guidance (06/01/20) Labs on day of discharge: Laboratory Tests 09/03/20 09/03/20 09/03/20 05:55 07:54 07:54 WBC 14.6 H RBC 4.24 L Hgb 12.1 L Hct 38.3 L MCV 90.3 MCH 28.5 MCHC 31.6 RDW 17.5 H Plt Count 553 H MPV 9.4 Immature Gran % (Auto) 0.2 Neut % (Auto) 76.4 H Lymph % (Auto) 8.9 L [place] % (Auto) 13.5 H Eos % (Auto) 0.8 Baso % (Auto) 0.2 Lymph # (Auto) 1.3 [place] # (Auto) 2.0 H Eos # (Auto) 0.1 Baso # (Auto) 0.0 Abs Immat Gran (auto) 0.03 Absolute Neuts (auto) 11.1 H Absolute Nucleated RBC 0.000 Nucleated RBC % (auto) 0.0 Smear Tech's Comments VERIFIED D-Dimer ABG pH ABG pCO2 ABG pO2 ABG HCO3 ABG O2 Saturation ABG Base Excess VBG pH VBG pCO2 VBG pO2 VBG HCO3 VBG O2 Saturation VBG Base Excess Oxygen Given Sodium 136 Potassium 5.1 Chloride 89 L Carbon Dioxide 35 H Anion Gap 17 BUN 14 D Creatinine 0.67 Estim Creat Clear Calc 101.0 Estimated GFR > 60 Random Glucose 106 Lactic Acid Lactic Acid Fup @ 2Hr Calcium 8.8 D Magnesium Ferritin 446 H Troponin I High Sens C-Reactive Protein B-Natriuretic Peptide Procalcitonin SARS-CoV-2 (PCR) DETECTED A COVID-19 ([facility]) COVID-19 [employer] Com Blood Type Antibody Screen 09/03/20 09/03/20 09/03/20 07:54 07:54 07:54 WBC RBC Hgb Hct MCV MCH MCHC RDW Plt Count MPV Immature Gran % (Auto) Neut % (Auto) Lymph % (Auto) [place] % (Auto) Eos % (Auto) Baso % (Auto) Lymph # (Auto) [place] # (Auto) Eos # (Auto) Baso # (Auto) Abs Immat Gran (auto) Absolute Neuts (auto) Absolute Nucleated RBC Nucleated RBC % (auto) Smear Tech's Comments D-Dimer ABG pH ABG pCO2 ABG pO2 ABG HCO3 ABG O2 Saturation ABG Base Excess VBG pH VBG pCO2 VBG pO2 VBG HCO3 VBG O2 Saturation VBG Base Excess Oxygen Given Sodium Potassium Chloride Carbon Dioxide Anion Gap BUN Creatinine Estim Creat Clear Calc Estimated GFR Random Glucose Lactic Acid 2.2 H* Lactic Acid Fup @ 2Hr Calcium Magnesium Ferritin Troponin I High Sens < 3.5 C-Reactive Protein B-Natriuretic Peptide 29 Procalcitonin 0.03 SARS-CoV-2 (PCR) COVID-19 ([facility]) COVID-19 [employer] Com Blood Type Antibody Screen 09/03/20 09/03/20 09/03/20 16:11 16:12 20:23 WBC RBC Hgb Hct MCV MCH MCHC RDW Plt Count MPV Immature Gran % (Auto) Neut % (Auto) Lymph % (Auto) [place] % (Auto) Eos % (Auto) Baso % (Auto) Lymph # (Auto) [place] # (Auto) Eos # (Auto) Baso # (Auto) Abs Immat Gran (auto) Absolute Neuts (auto) Absolute Nucleated RBC Nucleated RBC % (auto) Smear Tech's Comments D-Dimer ABG pH 7.23 L ABG pCO2 93 H* ABG pO2 150 H ABG HCO3 38 H ABG O2 Saturation 99.0 ABG Base Excess 7.2 VBG pH VBG pCO2 VBG pO2 VBG HCO3 VBG O2 Saturation VBG Base Excess Oxygen Given 4 L Sodium Potassium Chloride Carbon Dioxide Anion Gap BUN Creatinine Estim Creat Clear Calc Estimated GFR Random Glucose Lactic Acid Lactic Acid Fup @ 2Hr 1.0 Calcium Magnesium Ferritin Troponin I High Sens C-Reactive Protein B-Natriuretic Peptide Procalcitonin SARS-CoV-2 (PCR) COVID-19 ([facility]DA) Positive A COVID-19 Clin Com See Note Blood Type Antibody Screen 09/04/20 09/04/20 09/04/20 05:43 05:44 05:44 WBC 15.0 H RBC 3.89 L Hgb 11.0 L Hct 35.0 L MCV 90.0 MCH 28.3 MCHC 31.4 RDW 17.3 H Plt Count 443 H MPV 9.5 Immature Gran % (Auto) 0.3 Neut % (Auto) 78.9 H Lymph % (Auto) 9.9 L [place] % (Auto) 10.6 Eos % (Auto) 0.1 Baso % (Auto) 0.2 Lymph # (Auto) 1.5 [place] # (Auto) 1.6 H Eos # (Auto) 0.0 Baso # (Auto) 0.0 Abs Immat Gran (auto) 0.05 H Absolute Neuts (auto) 11.8 H Absolute Nucleated RBC 0.000 Nucleated RBC % (auto) 0.0 Smear Tech's Comments VERIFIED D-Dimer ABG pH ABG pCO2 ABG pO2 ABG HCO3 ABG O2 Saturation ABG Base Excess VBG pH 7.45 H VBG pCO2 46 VBG pO2 35 VBG HCO3 31 VBG O2 Saturation 78.7 VBG Base Excess 6.3 Oxygen Given Sodium 133 L Potassium 4.6 Chloride 89 L Carbon Dioxide 32 H Anion Gap 17 BUN 12 Creatinine 0.58 Estim Creat Clear Calc 116.7 Estimated GFR > 60 Random Glucose 58 L* Lactic Acid Lactic Acid Fup @ 2Hr Calcium 8.4 Magnesium Ferritin Troponin I High Sens C-Reactive Protein 18.23 H B-Natriuretic Peptide Procalcitonin SARS-CoV-2 (PCR) COVID-19 ([facility]DA) COVID-19 Clin Com Blood Type Antibody Screen 09/04/20 09/04/20 09/04/20 05:44 05:44 16:35 WBC RBC Hgb Hct MCV MCH MCHC RDW Plt Count MPV Immature Gran % (Auto) Neut % (Auto) Lymph % (Auto) [place] % (Auto) Eos % (Auto) Baso % (Auto) Lymph # (Auto) [place] # (Auto) Eos # (Auto) Baso # (Auto) Abs Immat Gran (auto) Absolute Neuts (auto) Absolute Nucleated RBC Nucleated RBC % (auto) Smear Tech's Comments D-Dimer 2411 ABG pH ABG pCO2 ABG pO2 ABG HCO3 ABG O2 Saturation ABG Base Excess VBG pH VBG pCO2 VBG pO2 VBG HCO3 VBG O2 Saturation VBG Base Excess Oxygen Given Sodium Potassium Chloride Carbon Dioxide Anion Gap BUN Creatinine Estim Creat Clear Calc Estimated GFR Random Glucose Lactic Acid Lactic Acid Fup @ 2Hr Calcium Magnesium 2.2 Ferritin 551 H Troponin I High Sens C-Reactive Protein B-Natriuretic Peptide Procalcitonin SARS-CoV-2 (PCR) COVID-19 ([facility]) COVID-19 Clin Com Blood Type A Positive Antibody Screen NEGATIVE 09/05/20 09/05/20 09/05/20 05:18 05:18 05:18 WBC 5.3 RBC 3.40 L Hgb 9.6 L Hct 30.6 L MCV 90.0 MCH 28.2 MCHC 31.4 RDW 16.6 H Plt Count 393 MPV 9.3 L Immature Gran % (Auto) 0.4 Neut % (Auto) 89.6 H Lymph % (Auto) 7.0 L [place] % (Auto) 3.0 Eos % (Auto) 0.0 Baso % (Auto) 0.0 Lymph # (Auto) 0.4 L [place] # (Auto) 0.2 Eos # (Auto) 0.0 Baso # (Auto) 0.0 Abs Immat Gran (auto) 0.02 Absolute Neuts (auto) 4.7 Absolute Nucleated RBC 0.000 Nucleated RBC % (auto) 0.0 Smear Tech's Comments VERIFIED D-Dimer 2041 ABG pH ABG pCO2 ABG pO2 ABG HCO3 ABG O2 Saturation ABG Base Excess VBG pH VBG pCO2 VBG pO2 VBG HCO3 VBG O2 Saturation VBG Base Excess Oxygen Given Sodium 139 Potassium 4.8 Chloride 90 L Carbon Dioxide 43 H* D Anion Gap 11 L BUN 10 Creatinine 0.58 Estim Creat Clear Calc 73.5 Estimated GFR > 60 Random Glucose 193 H D Lactic Acid Lactic Acid Fup @ 2Hr Calcium 8.3 L Magnesium Ferritin 565 H Troponin I High Sens C-Reactive Protein 18.00 H B-Natriuretic Peptide Procalcitonin SARS-CoV-2 (PCR) COVID-19 ([facility]DA) COVID-19 Clin Com Blood Type Antibody Screen 09/05/20 09/06/20 09/06/20 05:18 06:07 06:07 WBC 9.2 RBC 3.77 L Hgb 10.6 L Hct 33.2 L MCV 88.1 MCH 28.1 MCHC 31.9 RDW 16.8 H Plt Count 424 H MPV 9.4 Immature Gran % (Auto) Neut % (Auto) Lymph % (Auto) [place] % (Auto) Eos % (Auto) Baso % (Auto) Lymph # (Auto) [place] # (Auto) Eos # (Auto) Baso # (Auto) Abs Immat Gran (auto) Absolute Neuts (auto) Absolute Nucleated RBC 0.020 H Nucleated RBC % (auto) 0.2 Smear Tech's Comments D-Dimer ABG pH ABG pCO2 ABG pO2 ABG HCO3 ABG O2 Saturation ABG Base Excess VBG pH 7.40 VBG pCO2 82 VBG pO2 134 VBG HCO3 51 VBG O2 Saturation 99.0 VBG Base Excess 23.2 Oxygen Given Sodium 134 L Potassium 4.6 Chloride 86 L Carbon Dioxide 40 H* Anion Gap 13 BUN 8 L Creatinine 0.55 Estim Creat Clear Calc 77.5 Estimated GFR > 60 Random Glucose 176 H Lactic Acid Lactic Acid Fup @ 2Hr Calcium 8.5 Magnesium Ferritin Troponin I High Sens C-Reactive Protein B-Natriuretic Peptide Procalcitonin SARS-CoV-2 (PCR) COVID-19 ([facility]DA) COVID-19 [facility] Blood Type Antibody Screen 09/06/20 09/07/20 09/07/20 06:07 05:26 05:26 WBC RBC Hgb Hct MCV MCH MCHC RDW Plt Count MPV Immature Gran % (Auto) Neut % (Auto) Lymph % (Auto) [place] % (Auto) Eos % (Auto) Baso % (Auto) Lymph # (Auto) [place] # (Auto) Eos # (Auto) Baso # (Auto) Abs Immat Gran (auto) Absolute Neuts (auto) Absolute Nucleated RBC Nucleated RBC % (auto) Smear Tech's Comments D-Dimer ABG pH ABG pCO2 ABG pO2 ABG HCO3 ABG O2 Saturation ABG Base Excess VBG pH 7.43 7.37 VBG pCO2 75 63 VBG pO2 65 57 VBG HCO3 50 37 VBG O2 Saturation 90.0 83.0 VBG Base Excess 22.3 10.0 Oxygen Given Sodium 134 L Potassium 4.9 Chloride 92 L Carbon Dioxide 32 H Anion Gap 15 BUN 16 D Creatinine 0.67 Estim Creat Clear Calc 63.6 Estimated GFR > 60 Random Glucose 150 H Lactic Acid Lactic Acid Fup @ 2Hr Calcium 8.8 Magnesium Ferritin Troponin I High Sens C-Reactive Protein B-Natriuretic Peptide Procalcitonin SARS-CoV-2 (PCR) COVID-19 ([facility]DA) COVID-19 [facility] Blood Type Antibody Screen 09/08/20 09/08/20 07:06 07:06 WBC RBC Hgb Hct MCV MCH MCHC RDW Plt Count MPV Immature Gran % (Auto) Neut % (Auto) Lymph % (Auto) [place] % (Auto) Eos % (Auto) Baso % (Auto) Lymph # (Auto) [place] # (Auto) Eos # (Auto) Baso # (Auto) Abs Immat Gran (auto) Absolute Neuts (auto) Absolute Nucleated RBC Nucleated RBC % (auto) Smear Tech's Comments D-Dimer ABG pH ABG pCO2 ABG pO2 ABG HCO3 ABG O2 Saturation ABG Base Excess VBG pH 7.39 VBG pCO2 53 VBG pO2 64 VBG HCO3 32 VBG O2 Saturation 88.0 VBG Base Excess 6.3 Oxygen Given Sodium 134 L Potassium 4.5 Chloride 96 Carbon Dioxide 29 Anion Gap 14 BUN 18 H Creatinine 0.60 Estim Creat Clear Calc 72.9 Estimated GFR > 60 Random Glucose 145 H Lactic Acid Lactic Acid Fup @ 2Hr Calcium 8.8 Magnesium Ferritin Troponin I High Sens C-Reactive Protein B-Natriuretic Peptide Procalcitonin SARS-CoV-2 (PCR) COVID-19 ([facility]DA) COVID-19 [facility] Blood Type Antibody Screen Discharge Plan Discharge Patient Disposition: Home, Self-Care Referrals: Eliza Lorenzana NP [Nurse Practitioner] - Discharge Medications: New acetazolamide 250 mg Tablet 250 mg PO DAILY Qty: 30 RF: 0 dextromethorphan-guaifenesin 10-100 mg/5 mL Syrup 5 ml PO Q4H PRN (Reason: Cough) 7 Days RF: 0 dexamethasone 6 mg tablet 6 mg PO DAILY Qty: 4 RF: 0 Continued ipratropium-albuterol 0.5 mg-3 mg(2.5 mg base)/3 mL solution for nebulization 3 ml inhalation QID 30 Days Qty: 360 RF: 6 gabapentin 300 mg Tablet 300 mg PO TID RF: 0 Incruse Ellipta 62.5 mcg/actuation Blister With Device 1 inh INHALATION DAILY RF: 0 atorvastatin 20 mg tablet 20 mg PO DAILY RF: 0 albuterol sulfate 2.5 mg /3 mL (0.083 %) solution for nebulization 1 amp inhalation QID PRN (Reason: Wheezing) RF: 0 aspirin 81 mg tablet,delayed release (DR/EC) 81 mg PO DAILY RF: 0 sildenafil [Viagra] 100 mg tablet 0.5 - 1 tab PO DAILY PRN (Reason: Erectile Dysfunction) RF: 0 montelukast 10 mg tablet 10 mg PO BEDTIME RF: 0 Atrovent HFA 17 mcg/actuation HFA aerosol inhaler 2 puff PO QID RF: 0 multivitamin Tablet 1 tab PO DAILY RF: 0 bupropion HCl 150 mg tablet sustained-release 12 hr 150 mg PO BID RF: 0 sennosides [senna] 8.6 mg tablet 1 - 2 tab PO DAILY PRN (Reason: Constipation) RF: 0 ketoconazole 2 % shampoo 1 appl topical 2XW RF: 0 ferrous sulfate 325 mg (65 mg iron) tablet 325 mg PO DAILY RF: 0 fluticasone propionate 50 mcg/actuation spray,suspension 2 spray intranasal DAILY PRN (Reason: Nasal Congestion) RF: 0 nicotine (polacrilex) 2 mg lozenge 2 mg PO Q4H RF: 0 Breo Ellipta 200-25 mcg/dose blister with device 1 puff PO DAILY RF: 0 dextromethorphan-guaifenesin 10-100 mg/5 mL Syrup 5 ml PO Q4H PRN (Reason: cough ) Qty: 100 RF: 0 doxycycline hyclate 100 mg capsule 100 mg PO DAILY Qty: 14 RF: 0 prednisone 20 mg tablet 20 mg PO DAILY 10 Days Qty: 15 RF: 0 Discharge Orders: Discharge Order (Routine); Ordered 09/08/20 Ordered By: Carlo Pascual Diet: advance to usual diet Activity on Discharge: As tolerated Visit Report Forms: Patient Portal Discharge page Care Plan Goals: Read below Health Concerns: Read below Plan of Treatment: You were admitted to the hospital for treatment of difficulty breathing. Found to have COVID-19 infection requiring BiPAP oxygen treatment. You were evaluated by lung specialist is and had an overnight oxygen study that was acceptable. Continue a dexamethasone as prescribed Use cough medication as needed Use your inhalers To follow-up with your primary as outpatient
== END 2020-09-08 13:16 | disposition home or self-care (01) | DRG 177 ==
LOC: HO.ED 13:05 → HO.ISO 17:46 → HO.ICU 23:51 → HO.IMC 09-08 05:34
PROVIDERS: Emergency Medicine; Physician Assistant Medical; Admitting Provider Student in an Organized Health Care Education/Training Program; Emergency Provider Emergency Medicine Emergency Medical Services; PCP Nurse Practitioner Family; Visit Provider Student in an Organized Health Care Education/Training Program
DX: U07.1 COVID-19 (principal); J96.01 Acute respiratory failure with hypoxia; J96.02 Acute respiratory failure with hypercapnia; G92 Toxic encephalopathy; J44.1 Chronic obstructive pulmonary disease with (acute) exacerbation; E87.2 Acidosis; J98.4 Other disorders of lung; Z99.81 Dependence on supplemental oxygen; Z88.5 Allergy status to narcotic agent; Z79.51 Long term (current) use of inhaled steroids; Z79.899 Other long term (current) drug therapy
CPT/HCPCS: 36415; 71045; 71275; 80048; 82728; 82803; 83605; 83735; 83880; 84145; 84484; 85025; 85027; 85379; 86140; 86850; 86900; 86901; 87040; 87635; 93005; 94640; 94660; 96361; 96365; 96375; 99284; 99285; J1100; J1650; J2060; J2543; J2920; J2930; Q9967; U0003

== ENCOUNTER 2020-09-19 22:10 | Emergency (ER) | payer OTHER, SELFPAY ==
[2020-09-19 22:30] VITALS: BP 106/60; PULSE 119; RESP 14; TEMP 36.7; O2SAT 97; BMI 15.7
[2020-09-19 23:08] LABS: Basophils Percent Auto 0.2 % (0-2); Eosinophils Absolute Auto 0.2 X10*3/uL (0.0-0.4); Eosinophils Percent Auto 1.2 % (0-4); Hematocrit 32.3 % (42-52); Hemoglobin 10.2 g/dl (14.0-18.0); Imm Gran Abs Auto 0.07 X10*3/uL (0.00-0.03); Imm Gran Pct Auto 0.4 % (0.0-0.4); Lymphocytes Absolute Auto 1.3 X10*3/uL (1.2-4.9); Lymphocytes Percent Auto 7.3 % (20-40); MANUAL DIFF FLAG SCAN; Mean Corpuscular HGB Conc 31.6 g/dl (31.0-36.0); Mean Corpuscular Hemoglobin 28.3 pg (27.0-33.0); Mean Corpuscular Volume 89.7 fL (80-98); Mean Platelet Volume 8.8 fL (9.4-12.4); Monocytes Absolute Auto 1.6 X10*3/uL (0.1-1.2); Monocytes Percent Auto 8.8 % (2-11); Neutrophils Absolute Auto 14.9 X10*3/uL (2.0-8.3); Neutrophils Percent Auto 82.1 % (45-73); Platelet Count 487 X10*3/uL (160-400); SCAN SMEAR FLAG 1; White Blood Count 18.1 X10*3/uL (4.8-10.8)
[2020-09-19 23:15] LABS: INTERNATIONAL NORM RATIO 1.2 (0.9-1.1); Prothrombin Time 13.9 SEC (10.8-13.0)
[2020-09-19 23:36] LABS: Alanine Aminotransferase 25 U/L (0-40); Albumin Level 3.1 g/dL (3.5-5.0); Alkaline Phosphatase 240 U/L (39-117); Anion Gap 12 (12-20); Aspartate Amino Transferase 23 U/L (5-37); Bilirubin Total 0.5 mg/dL (0.0-1.0); Blood Urea Nitrogen 12 mg/dL (9-16); Calcium 8.3 mg/dL (8.4-10.2); Carbon Dioxide 31 mmol/L (22-29); Chloride 94 mmol/L (96-108); Creatinine Clr Calc Pharmacy 73.9; Estimated Glomerular Filt Rate > 60; Glucose Random 147 mg/dL (60-115); Potassium 4.3 mmol/l (3.3-5.1); Sodium 133 mmol/L (135-145); Total Protein 6.5 g/dL (6.5-8.0)
[2020-09-19 23:41] LABS: Glucose Urine UA NEG (NEG); Leukocyte Esterase Urine NEG (NEG); Nitrite Urine NEG (NEG); Specific Gravity - Urine 1.015 (1.005-1.025); Urine Blood NEG (NEG); Urine Ketones NEG (NEG); Urine Protein NEG (NEG-TRACE)
[2020-09-19 23:46] LABS: Appearance Urine CLEAR; Color Urine YELLOW
[2020-09-19 23:53] LABS: SLIDE REVIEW VERIFIED
--- NOTE | 2020-09-20 00:11 | XR_ITS ---
EXAMINATION: XR CHEST CLINICAL INFORMATION: Cough COMPARISON: 09/03/2020 TECHNIQUE: Frontal view of the chest was obtained. FINDINGS: Again seen are hyperinflated lungs. Bilateral upper lobe scarring is present with elevation of both payal, right greater than left. Compared to the prior study, there's been no significant interval change. No consolidations or effusions are seen. XR/XR chest 1V IMPRESSION: Unchanged bilateral upper lobe scarring. No acute intrathoracic disease.
--- NOTE | 2020-09-20 00:17 | ED.FEVER ---
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 He is sent in by his family for questionable fever but multiple re-temps here in the ED demonstrate a temperature within normal limits. In addition, patient denies any shortness of breath, chest pain/palpitations, GI symptoms, or symptoms. Related Data Home Medications Medication Instructions Recorded Confirmed Atrovent HFA 2 puff PO QID 06/01/20 09/03/20 albuterol sulfate 1 amp INHALATION QID PRN 06/01/20 09/03/20 aspirin 81 mg PO DAILY 06/01/20 09/03/20 atorvastatin 20 mg PO DAILY 06/01/20 09/03/20 montelukast 10 mg PO BEDTIME 06/01/20 09/03/20 sildenafil [Viagra] 0.5 - 1 tab PO DAILY PRN 06/01/20 09/03/20 Breo Ellipta 1 puff PO DAILY 08/05/20 09/03/20 bupropion HCl 150 mg PO BID 08/05/20 09/03/20 ferrous sulfate 325 mg PO DAILY 08/05/20 09/03/20 fluticasone propionate 2 spray INTRANASAL DAILY PRN 08/05/20 09/03/20 ketoconazole 1 appl TOPICAL 2XW 08/05/20 09/03/20 multivitamin 1 tab PO DAILY 08/05/20 09/03/20 nicotine (polacrilex) 2 mg PO Q4H 08/05/20 09/03/20 sennosides [senna] 1 - 2 tab PO DAILY PRN 08/05/20 09/03/20 Incruse Ellipta 1 inh INHALATION DAILY 09/03/20 09/03/20 gabapentin 300 mg PO TID 09/03/20 09/03/20 Previous Rx's Medication Instructions Recorded ipratropium 0.5 mg-albuterol 3 mg 3 ml INHALATION QID 30 Days #360 ml 06/28/20 (2.5 mg base)/3 mL nebulization soln dextromethorphan-guaifenesin 5 ml PO Q4H PRN #100 ml 08/06/20 doxycycline hyclate 100 mg PO DAILY #14 cap 08/21/20 prednisone 20 mg tablet 20 mg PO DAILY 10 Days #15 tab 08/26/20 acetazolamide 250 mg PO DAILY #30 tab 09/08/20 dexamethasone 6 mg PO DAILY #4 tab 09/08/20 dextromethorphan-guaifenesin 5 ml PO Q4H PRN 7 Days ml 09/08/20 Allergies Allergy/AdvReac Type Severity Reaction Status Date / Time morphine [MORPHINE] Allergy Mild VOMITING Verified 08/26/20 15:36 Review of Systems Review of Systems: Pertinent positives and negatives as stated in HPI 10 point review of systems is otherwise negative. [facility] Past Medical History Source: nursing notes reviewed Medical History Asthma Bronchiectasis Bronchiectasis with (acute) exacerbation Cocaine abuse COPD (chronic obstructive pulmonary disease) COPD (chronic obstructive pulmonary disease) COPD exacerbation Latent tuberculosis Mycobacteria, atypical Pneumonia Respiratory failure with hypoxia and hypercapnia Family History Family History Other Family history non-contributory HTN (hypertension) Social History Social History Household Members: Children Housing: Apartment Alcohol intake: never Smoking Status: Unknown if ever smoked Second Hand Smoke Exposure: No Substance Use Type: Crack/Cocaine Advance Directives: No service: No Current occupational status: retired and disabled Physical Exam Vital Signs: Vital Signs: Last Vital Signs Temp 98.1 F 09/19/20 22:30 Pulse 119 H 09/19/20 22:30 Resp 14 09/19/20 22:30 BP 106/60 09/19/20 22:30 Pulse Ox 97 09/19/20 22:30 Body Mass Index 15.7 VITAL SIGNS: Reviewed. GENERAL: Chronically ill, cachectic, in no acute distress. HEAD: Normocephalic/atraumatic, EYES: PERRLA, EOMI EARS: Ext canals without abnormality NOSE: Nares patent bilateral OROPHARYNX: no oral lesions noted, posterior pharynx clear NECK: Supple, no adenopathy LUNGS: Normal breath sounds. No adventitious sounds or tachypnea. SpO2<97> with home oxygen in place via nasal cannula CARDIOVASCULAR: Regular rate and rhythm without noted murmurs ABDOMEN: Soft, non-tender, non-distended with bowel sounds. SKIN: Inspection of the skin reveals no rashes NEUROLOGIC: Alert and oriented x 4. Course Course Course Narrative: This is a 65-year-old male who is brought in by EMS for concern by the family for fever but found to be afebrile here in the emergency department. Review of all investigations significant for a leukocytosis, however given that patient was discharged home on dexamethasone it is suspected that this is the source of the leukocytosis as the urinalysis is negative and patient has a benign abdominal exam. Otherwise, mild evidence of poor oral intake. On review of chest x-ray there are no findings to suggest any infiltrates. Patient is requesting to return home and is otherwise hemodynamically stable to do so and resume all home medications and recommended to follow-up with his primary care provider in the morning. MDM - Fever Lab Data Result diagrams: 09/19/20 22:59 09/19/20 22:59 Labs: Lab Results 09/19/20 09/19/20 09/19/20 Range/Units 22:59 22:59 22:59 WBC 18.1 H (4.8-10.8) X10*3/uL RBC 3.60 L (4.60-5.80) X10*6/uL Hgb 10.2 L (14.0-18.0) g/dl Hct 32.3 L (42-52) % MCV 89.7 (80-98) fL MCH 28.3 (27.0-33.0) pg MCHC 31.6 (31.0-36.0) g/dl RDW 17.0 H (11.0-16.0) % Plt Count 487 H (160-400) X10*3/uL MPV 8.8 L (9.4-12.4) fL Immature Gran % (Auto) 0.4 (0.0-0.4) % Neut % (Auto) 82.1 H (45-73) % Lymph % (Auto) 7.3 L (20-40) % [place] % (Auto) 8.8 (2-11) % Eos % (Auto) 1.2 (0-4) % Baso % (Auto) 0.2 (0-2) % Lymph # (Auto) 1.3 (1.2-4.9) X10*3/uL [place] # (Auto) 1.6 H (0.1-1.2) X10*3/uL Eos # (Auto) 0.2 (0.0-0.4) X10*3/uL Baso # (Auto) 0.0 (0.0-0.2) X10*3/uL Abs Immat Gran (auto) 0.07 H (0.00-0.03) X10*3/uL Absolute Neuts (auto) 14.9 H (2.0-8.3) X10*3/uL Absolute Nucleated RBC 0.000 (0.0-0.012) X10*3/uL Nucleated RBC % (auto) 0.0 (0.0-0.2) /100WBC Smear Tech's Comments VERIFIED PT 13.9 H (10.8-13.0) SEC INR 1.2 H (0.9-1.1) Sodium 133 L (135-145) mmol/L Potassium 4.3 (3.3-5.1) mmol/l Chloride 94 L (96-108) mmol/L Carbon Dioxide 31 H (22-29) mmol/L Anion Gap 12 (12-20) BUN 12 (9-16) mg/dL Creatinine 0.58 (0.5-1.4) mg/dL Estim Creat Clear Calc 73.9 Estimated GFR > 60 Random Glucose 147 H (60-115) mg/dL Calcium 8.3 L (8.4-10.2) mg/dL Total Bilirubin 0.5 (0.0-1.0) mg/dL AST 23 (5-37) U/L ALT 25 (0-40) U/L Alkaline Phosphatase 240 H D (39-117) U/L Total Protein 6.5 (6.5-8.0) g/dL Albumin 3.1 L (3.5-5.0) g/dL Urine Color Urine Appearance Urine pH (5.0-8.0) Ur Specific [place] (1.005-1.025) Urine Protein (NEG-TRACE) MG/DL Urine Glucose (UA) (NEG) MG/DL Urine Ketones (NEG) MG/DL Urine Blood (NEG) Urine Nitrite (NEG) Ur Leukocyte Esterase (NEG) 09/19/20 Range/Units 23:33 WBC (4.8-10.8) X10*3/uL RBC (4.60-5.80) X10*6/uL Hgb (14.0-18.0) g/dl Hct (42-52) % MCV (80-98) fL MCH (27.0-33.0) pg MCHC (31.0-36.0) g/dl RDW (11.0-16.0) % Plt Count (160-400) X10*3/uL MPV (9.4-12.4) fL Immature Gran % (Auto) (0.0-0.4) % Neut % (Auto) (45-73) % Lymph % (Auto) (20-40) % [place] % (Auto) (2-11) % Eos % (Auto) (0-4) % Baso % (Auto) (0-2) % Lymph # (Auto) (1.2-4.9) X10*3/uL [place] # (Auto) (0.1-1.2) X10*3/uL Eos # (Auto) (0.0-0.4) X10*3/uL Baso # (Auto) (0.0-0.2) X10*3/uL Abs Immat Gran (auto) (0.00-0.03) X10*3/uL Absolute Neuts (auto) (2.0-8.3) X10*3/uL Absolute Nucleated RBC (0.0-0.012) X10*3/uL Nucleated RBC % (auto) (0.0-0.2) /100WBC Smear Tech's Comments PT (10.8-13.0) SEC INR (0.9-1.1) Sodium (135-145) mmol/L Potassium (3.3-5.1) mmol/l Chloride (96-108) mmol/L Carbon Dioxide (22-29) mmol/L Anion Gap (12-20) BUN (9-16) mg/dL Creatinine (0.5-1.4) mg/dL Estim Creat Clear Calc Estimated GFR Random Glucose (60-115) mg/dL Calcium (8.4-10.2) mg/dL Total Bilirubin (0.0-1.0) mg/dL AST (5-37) U/L ALT (0-40) U/L Alkaline Phosphatase (39-117) U/L Total Protein (6.5-8.0) g/dL Albumin (3.5-5.0) g/dL Urine Color YELLOW Urine Appearance CLEAR Urine pH 7.0 (5.0-8.0) Ur Specific [place] 1.015 (1.005-1.025) Urine Protein NEG (NEG-TRACE) MG/DL Urine Glucose (UA) NEG (NEG) MG/DL Urine Ketones NEG (NEG) MG/DL Urine Blood NEG (NEG) Urine Nitrite NEG (NEG) Ur Leukocyte Esterase NEG (NEG) Discharge Plan Discharge Clinical Impression: Fever Qualifiers: Fever type: unspecified Qualified Code(s): R50.9 - Fever, unspecified Patient Disposition: Home, Self-Care Instructions: Acetaminophen (By mouth), Fever in Adults (ED) Additional Instructions: No dude en regresar al departamento de emergencias si experimenta un empeoramiento wilver de lashawn s?ntomas. Prescriptions: No Action ipratropium-albuterol 0.5 mg-3 mg(2.5 mg base)/3 mL solution for nebulization 3 ml inhalation QID 30 Days Qty: 360 RF: 6 gabapentin 300 mg Tablet 300 mg PO TID RF: 0 Incruse Ellipta 62.5 mcg/actuation Blister With Device 1 inh INHALATION DAILY RF: 0 acetazolamide 250 mg Tablet 250 mg PO DAILY Qty: 30 RF: 0 dextromethorphan-guaifenesin 10-100 mg/5 mL Syrup 5 ml PO Q4H PRN (Reason: Cough) 7 Days RF: 0 dexamethasone 6 mg tablet 6 mg PO DAILY Qty: 4 RF: 0 atorvastatin 20 mg tablet 20 mg PO DAILY RF: 0 albuterol sulfate 2.5 mg /3 mL (0.083 %) solution for nebulization 1 amp inhalation QID PRN (Reason: Wheezing) RF: 0 aspirin 81 mg tablet,delayed release (DR/EC) 81 mg PO DAILY RF: 0 sildenafil [Viagra] 100 mg tablet 0.5 - 1 tab PO DAILY PRN (Reason: Erectile Dysfunction) RF: 0 montelukast 10 mg tablet 10 mg PO BEDTIME RF: 0 Atrovent HFA 17 mcg/actuation HFA aerosol inhaler 2 puff PO QID RF: 0 multivitamin Tablet 1 tab PO DAILY RF: 0 bupropion HCl 150 mg tablet sustained-release 12 hr 150 mg PO BID RF: 0 sennosides [senna] 8.6 mg tablet 1 - 2 tab PO DAILY PRN (Reason: Constipation) RF: 0 ketoconazole 2 % shampoo 1 appl topical 2XW RF: 0 ferrous sulfate 325 mg (65 mg iron) tablet 325 mg PO DAILY RF: 0 fluticasone propionate 50 mcg/actuation spray,suspension 2 spray intranasal DAILY PRN (Reason: Nasal Congestion) RF: 0 nicotine (polacrilex) 2 mg lozenge 2 mg PO Q4H RF: 0 Breo Ellipta 200-25 mcg/dose blister with device 1 puff PO DAILY RF: 0 dextromethorphan-guaifenesin 10-100 mg/5 mL Syrup 5 ml PO Q4H PRN (Reason: cough ) Qty: 100 RF: 0 doxycycline hyclate 100 mg capsule 100 mg PO DAILY Qty: 14 RF: 0 prednisone 20 mg tablet 20 mg PO DAILY 10 Days Qty: 15 RF: 0 Referrals: Physician,Unknown [Primary Care Provider] - 2 days (Re-evaluation) Print Language: Uzbek
[2020-09-20 02:27] VITALS: BP 116/80; PULSE 104; RESP 16; TEMP 36.7; O2SAT 98
== END 2020-09-20 02:46 | disposition home or self-care (01) ==
PROVIDERS: Emergency Provider Student in an Organized Health Care Education/Training Program
DX: R50.9 Fever, unspecified (principal); Z86.16 Personal history of COVID-19; J44.9 Chronic obstructive pulmonary disease, unspecified; Z99.81 Dependence on supplemental oxygen; F14.10 Cocaine abuse, uncomplicated
CPT/HCPCS: 36415; 71045; 80053; 81003; 85025; 85610; 99283; 99284

== ENCOUNTER 2020-09-22 17:11 | Inpatient (IN) | payer OTHER, SELFPAY ==
[2020-09-22] VITALS (9 sets, daily range): BP systolic 82–104; BP diastolic 52–63; PULSE 76–152; RESP 18–35; TEMP 36.8–38.8; O2SAT 94–98; BMI 16.2
--- NOTE | 2020-09-22 17:19 | ECG_ITS ---
Test Reason : SOB Blood Pressure : / mmHG Vent. Rate : 138 BPM Atrial Rate : 138 BPM P-R Int : 120 ms QRS Dur : 072 ms QT Int : 288 ms P-R-T Axes : 080 -66 070 degrees QTc Int : 436 ms Sinus tachycardia Right atrial enlargement Left axis deviation Pulmonary disease pattern Abnormal ECG When compared with ECG of 03-SEP-2020 07:47, No significant change was found Referred By: Westley Kerns Electronically Signed By:TRINY HUBBARD MD
--- NOTE | 2020-09-22 17:20 | XR_ITS ---
EXAMINATION: XR CHEST CLINICAL INFORMATION: SOB. COMPARISON: None TECHNIQUE: Frontal view of the chest was obtained. FINDINGS: There is right upper lobe fibrosis with scarring. Minimal scarring with pleural thickening seen in the left upper lobe. Rest of lungs are emphysematous but clear. Heart size and pulmonary vascularity is normal. No gross bony abnormality seen. XR/XR chest 1V IMPRESSION: Significant fibrotic changes with apical pleural thickening right upper lobe and minimal scarring with left apical pleural thickening. These findings are essentially stable and unchanged to 09/20/2020.
[2020-09-22] MEDS: Albuterol Sulfate (0.083%) 2.5 MG/3 ML VIAL.NEB 5 MG INHALE (17:44)
[2020-09-22] MEDS: Acetaminophen 325 MG TABLET 650 MG PO (18:01)
--- NOTE | 2020-09-22 18:01 | ED.SOB ---
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 also on doxycycline daily and prednisone 20 mg daily today family noted the patient is more short of breath checked his pulse ox was in the 70s and heart rate was in 140s at that time patient was not on any oxygen patient received DuoNeb treatment and CPAP by EMS saturation improved to 100% patient is saturating 94% on 3L nasal cannula , on arrival patient noticed to have 101.9 fever rectally MD elicited complaint: shortness of breath and cough Pertinent past history: COPD Onset (ago): day(s) (2) Context: recent illness Timing: constant Severity: moderate Relieving factors: oxygen Known history of: COPD Associated symptoms: pain with inspiration and cough Treatment prior to arrival: oxygen and bronchodilator Related Data Home Medications Medication Instructions Recorded Confirmed Atrovent HFA 2 puff PO QID 06/01/20 09/22/20 albuterol sulfate 1 amp INHALATION QID PRN 06/01/20 09/22/20 aspirin 81 mg PO DAILY 06/01/20 09/22/20 atorvastatin 20 mg PO DAILY 06/01/20 09/22/20 montelukast 10 mg PO BEDTIME 06/01/20 09/22/20 sildenafil [Viagra] 0.5 - 1 tab PO DAILY PRN 06/01/20 09/22/20 Breo Ellipta 1 puff PO DAILY 08/05/20 09/22/20 bupropion HCl 150 mg PO BID 08/05/20 09/22/20 ferrous sulfate 325 mg PO DAILY 08/05/20 09/22/20 fluticasone propionate 2 spray INTRANASAL DAILY PRN 08/05/20 09/22/20 ketoconazole 1 appl TOPICAL 2XW 08/05/20 09/22/20 multivitamin 1 tab PO DAILY 08/05/20 09/22/20 nicotine (polacrilex) 2 mg PO Q4H 08/05/20 09/22/20 sennosides [senna] 1 - 2 tab PO DAILY PRN 08/05/20 09/22/20 Incruse Ellipta 1 inh INHALATION DAILY 09/03/20 09/03/20 gabapentin 300 mg PO TID 09/03/20 09/22/20 Previous Rx's Medication Instructions Recorded ipratropium 0.5 mg-albuterol 3 mg 3 ml INHALATION QID 30 Days #360 ml 06/28/20 (2.5 mg base)/3 mL nebulization soln doxycycline hyclate 100 mg PO DAILY #14 cap 08/21/20 prednisone 20 mg tablet 20 mg PO DAILY 10 Days #15 tab 08/26/20 acetazolamide 250 mg PO DAILY #30 tab 09/08/20 dexamethasone 6 mg PO DAILY #4 tab 09/08/20 dextromethorphan-guaifenesin 5 ml PO Q4H PRN 7 Days ml 09/08/20 levofloxacin 750 mg tablet 750 mg PO DAILY 10 Days #10 tab 09/20/20 Allergies Allergy/AdvReac Type Severity Reaction Status Date / Time morphine [MORPHINE] Allergy Mild VOMITING Verified 09/22/20 17:40 Review of Systems Review of Systems: All other systems reviewed and are negative Yes Unobtainable due to mental condition [facility] Past Medical History Medical History (Updated 09/22/20 @ 21:08 by Westley Kerns MD) Asthma Bronchiectasis Cocaine abuse COPD (chronic obstructive pulmonary disease) COVID-19 virus infection Latent tuberculosis Mycobacteria, atypical Pneumonia Respiratory failure with hypoxia and hypercapnia Family History Family History Other Family history non-contributory HTN (hypertension) Social History Social History Household Members: Children Housing: Apartment Alcohol intake: never Smoking Status: Former smoker Second Hand Smoke Exposure: No Use of substances other than those prescribed or required for medical reasons: No Substance Use Type: Crack/Cocaine Advance Directives: No Advance Directives Information Provided: No service: No Current occupational status: retired and disabled Physical Exam Vital Signs: Vital Signs: Last Vital Signs Temp 99.6 F 09/22/20 19:48 Pulse 76 09/22/20 21:55 Resp 18 09/22/20 21:55 BP 99/63 09/22/20 21:55 Pulse Ox 98 09/22/20 21:55 Body Mass Index 16.2 Const: General: acute distress moderate and ill appearing Nutritional Appearance: cachectic and thin Orientation/consciousness: patient oriented x3 HENMT: Head: Yes normocephalic and Yes atraumatic Ears: hearing grossly normal bilaterally General nose exam: Normal external nose present Mouth: Normal oral and palatal mucosa present Eyes: General: appearance normal, both eyes and all related structures Neck: Neck: Yes normal visual inspection, Yes full ROM and Yes no JVD Chest: Chest palpation & inspection: normal inspection of the chest and normal palpation of entire chest wall Resp: Effort & Inspection: normal respiratory effort Auscultation: crackles diffuse, rales diffuse, rhonchi throughout and wheezes throughout Cardio: Jugular venous distension: no JVD Palpation: normal PMI Rate: tachycardic Rhythm: regular rhythm Heart sounds: S1 normal heart sound present, S2 normal heart sound present and no murmurs Peripheral pulses: Peripheral pulses 2+ throughout GI: Inspection: Yes normal to inspection Palpation (GI): Soft to palpation and nontender Auscultation: normal bowel sounds : General: Yes no CVA tenderness Back/Spine/Pelvis: Back: no CVA tenderness Thoracic/Lumbar Spine: thoracic and lumbar spine normal to inspection Skin: General skin exam: no rashes or lesions noted Neuro: General: patient oriented x3 and no focal motor deficits Extrem: General: Yes normal to inspection and No pedal edema MDM - SOB/Dyspnea MDM Narrative Medical decision making narrative: Patient with chronic lung disease compromised with tuberculosis bronchiectasis and now with COVID infection with fibrosis changes patient on long-term prednisone and taking antibiotics now comes here for increased shortness of breath also noticed to have a temp pressure and elevated lactic acid level patient received IV antibiotics patient is not in septic shock elevated lactic acid is from albuterol treatments tachycardia and shortness of breath from the chronic lung disease and COVID-19 infection patient repeat COVID-19 test is negative. Will admit patient for IV antibiotics IV steroids and supportive oxygen treatment. Patient vitals and oxygenation improved after nebulizing treatment and oxygen therapy Differential Diagnosis Differential diagnosis: Likely acute exacerbation of chronic obstructive airways disease and pneumonia Medical Records Attestation: I reviewed the patient's medical records. Lab Data Attestation: I reviewed the patient's lab results. Result diagrams: 09/22/20 17:58 09/22/20 17:58 Labs: Lab Results 09/22/20 09/22/20 09/22/20 Range/Units 17:58 17:58 17:58 WBC 20.2 H (4.8-10.8) X10*3/uL RBC 3.57 L (4.60-5.80) X10*6/uL Hgb 10.2 L (14.0-18.0) g/dl Hct 30.5 L (42-52) % MCV 85.4 (80-98) fL MCH 28.6 (27.0-33.0) pg MCHC 33.4 (31.0-36.0) g/dl RDW 16.9 H (11.0-16.0) % Plt Count 557 H (160-400) X10*3/uL MPV 9.1 L (9.4-12.4) fL Immature Gran % (Auto) 0.4 (0.0-0.4) % Neut % (Auto) 91.6 H (45-73) % Lymph % (Auto) 2.7 L (20-40) % [place] % (Auto) 5.0 (2-11) % Eos % (Auto) 0.1 (0-4) % Baso % (Auto) 0.2 (0-2) % Lymph # (Auto) 0.6 L (1.2-4.9) X10*3/uL [place] # (Auto) 1.0 (0.1-1.2) X10*3/uL Eos # (Auto) 0.0 (0.0-0.4) X10*3/uL Baso # (Auto) 0.0 (0.0-0.2) X10*3/uL Abs Immat Gran (auto) 0.09 H (0.00-0.03) X10*3/uL Absolute Neuts (auto) 18.5 H (2.0-8.3) X10*3/uL Absolute Nucleated RBC 0.000 (0.0-0.012) X10*3/uL Nucleated RBC % (auto) 0.0 (0.0-0.2) /100WBC Smear Tech's Comments VERIFIED PT 15.5 H (10.8-13.0) SEC INR 1.3 H (0.9-1.1) VBG pH (7.32-7.43) VBG pCO2 mmHg VBG pO2 mmHg VBG HCO3 mmol/L VBG O2 Saturation % VBG Base Excess mmol/L Sodium 132 L (135-145) mmol/L Potassium 4.6 (3.3-5.1) mmol/L Chloride 89 L (96-108) mmol/L Carbon Dioxide 32 H (22-29) mmol/L Anion Gap 16 (12-20) BUN 12 (9-16) mg/dL Creatinine 0.59 (0.5-1.4) mg/dL Estim Creat Clear Calc 82.1 Estimated GFR > 60 Random Glucose 154 H (60-115) mg/dL Lactic Acid (0.5-2.0) mmol/L Lactic Acid Fup @ 2Hr (0.5-2.0) mmol/L Calcium 8.3 L (8.4-10.2) mg/dL Total Bilirubin 0.4 (0.0-1.0) mg/dL Direct Bilirubin 0.3 (0.0-0.5) mg/dL AST 16 (5-37) U/L ALT 17 (0-40) U/L Alkaline Phosphatase 223 H (39-117) U/L Troponin I High Sens (<3.5-35.0) ng/L Total Protein 6.6 (6.5-8.0) g/dL Albumin 3.0 L (3.5-5.0) g/dL COVID-19 (LINDA) (Negative) COVID-19 Clin Com 09/22/20 09/22/20 09/22/20 Range/Units 17:58 17:58 17:58 WBC (4.8-10.8) X10*3/uL RBC (4.60-5.80) X10*6/uL Hgb (14.0-18.0) g/dl Hct (42-52) % MCV (80-98) fL MCH (27.0-33.0) pg MCHC (31.0-36.0) g/dl RDW (11.0-16.0) % Plt Count (160-400) X10*3/uL MPV (9.4-12.4) fL Immature Gran % (Auto) (0.0-0.4) % Neut % (Auto) (45-73) % Lymph % (Auto) (20-40) % [place] % (Auto) (2-11) % Eos % (Auto) (0-4) % Baso % (Auto) (0-2) % Lymph # (Auto) (1.2-4.9) X10*3/uL [place] # (Auto) (0.1-1.2) X10*3/uL Eos # (Auto) (0.0-0.4) X10*3/uL Baso # (Auto) (0.0-0.2) X10*3/uL Abs Immat Gran (auto) (0.00-0.03) X10*3/uL Absolute Neuts (auto) (2.0-8.3) X10*3/uL Absolute Nucleated RBC (0.0-0.012) X10*3/uL Nucleated RBC % (auto) (0.0-0.2) /100WBC Smear Tech's Comments PT (10.8-13.0) SEC INR (0.9-1.1) VBG pH 7.39 (7.32-7.43) VBG pCO2 72 mmHg VBG pO2 57 mmHg VBG HCO3 44 mmol/L VBG O2 Saturation 83.0 % VBG Base Excess 16.9 mmol/L Sodium (135-145) mmol/L Potassium (3.3-5.1) mmol/L Chloride (96-108) mmol/L Carbon Dioxide (22-29) mmol/L Anion Gap (12-20) BUN (9-16) mg/dL Creatinine (0.5-1.4) mg/dL Estim Creat Clear Calc Estimated GFR Random Glucose (60-115) mg/dL Lactic Acid 2.1 H* (0.5-2.0) mmol/L Lactic Acid Fup @ 2Hr (0.5-2.0) mmol/L Calcium (8.4-10.2) mg/dL Total Bilirubin (0.0-1.0) mg/dL Direct Bilirubin (0.0-0.5) mg/dL AST (5-37) U/L ALT (0-40) U/L Alkaline Phosphatase (39-117) U/L Troponin I High Sens < 3.5 (<3.5-35.0) ng/L Total Protein (6.5-8.0) g/dL Albumin (3.5-5.0) g/dL COVID-19 (LINDA) (Negative) COVID-19 Clin Com 09/22/20 09/22/20 Range/Units 20:39 20:39 WBC (4.8-10.8) X10*3/uL RBC (4.60-5.80) X10*6/uL Hgb (14.0-18.0) g/dl Hct (42-52) % MCV (80-98) fL MCH (27.0-33.0) pg MCHC (31.0-36.0) g/dl RDW (11.0-16.0) % Plt Count (160-400) X10*3/uL MPV (9.4-12.4) fL Immature Gran % (Auto) (0.0-0.4) % Neut % (Auto) (45-73) % Lymph % (Auto) (20-40) % [place] % (Auto) (2-11) % Eos % (Auto) (0-4) % Baso % (Auto) (0-2) % Lymph # (Auto) (1.2-4.9) X10*3/uL [place] # (Auto) (0.1-1.2) X10*3/uL Eos # (Auto) (0.0-0.4) X10*3/uL Baso # (Auto) (0.0-0.2) X10*3/uL Abs Immat Gran (auto) (0.00-0.03) X10*3/uL Absolute Neuts (auto) (2.0-8.3) X10*3/uL Absolute Nucleated RBC (0.0-0.012) X10*3/uL Nucleated RBC % (auto) (0.0-0.2) /100WBC Smear Tech's Comments PT (10.8-13.0) SEC INR (0.9-1.1) VBG pH (7.32-7.43) VBG pCO2 mmHg VBG pO2 mmHg VBG HCO3 mmol/L VBG O2 Saturation % VBG Base Excess mmol/L Sodium (135-145) mmol/L Potassium (3.3-5.1) mmol/L Chloride (96-108) mmol/L Carbon Dioxide (22-29) mmol/L Anion Gap (12-20) BUN (9-16) mg/dL Creatinine (0.5-1.4) mg/dL Estim Creat Clear Calc Estimated GFR Random Glucose (60-115) mg/dL Lactic Acid (0.5-2.0) mmol/L Lactic Acid Fup @ 2Hr 1.0 (0.5-2.0) mmol/L Calcium (8.4-10.2) mg/dL Total Bilirubin (0.0-1.0) mg/dL Direct Bilirubin (0.0-0.5) mg/dL AST (5-37) U/L ALT (0-40) U/L Alkaline Phosphatase (39-117) U/L Troponin I High Sens (<3.5-35.0) ng/L Total Protein (6.5-8.0) g/dL Albumin (3.5-5.0) g/dL COVID-19 (LINDA) Negative (Negative) COVID-19 Clin Com See Note ECG Data Attestation: I personally reviewed and interpreted this ECG as follows: Interpretation: Sinus tachycardia with heart rate of 138, left axis deviation right atrial enlargement no acute ST T wave changes impression no acute ischemia sinus tachycardia Discharge Plan Discharge Clinical Impression: COVID-19 virus infection Pneumonia Qualifiers: Pneumonia type: due to unspecified organism Laterality: bilateral Lung location: unspecified part of lung Qualified Code(s): J18.9 - Pneumonia, unspecified organism Patient Disposition: Admitted As Inpatient
[2020-09-22 18:09] LABS: PCO2 VBG 72 mmHg; PO2 VBG 57 mmHg; pH VBG 7.39 (7.32-7.43)
[2020-09-22 18:10] LABS: Base Excess VBG 16.9 mmol/L; HCO3 VBG 44 mmol/L
[2020-09-22 18:12] LABS: Basophils Percent Auto 0.2 % (0-2); Eosinophils Percent Auto 0.1 % (0-4); Hematocrit 30.5 % (42-52); Hemoglobin 10.2 g/dl (14.0-18.0); Imm Gran Abs Auto 0.09 X10*3/uL (0.00-0.03); Imm Gran Pct Auto 0.4 % (0.0-0.4); Lymphocytes Absolute Auto 0.6 X10*3/uL (1.2-4.9); Lymphocytes Percent Auto 2.7 % (20-40); MANUAL DIFF FLAG SCAN; Mean Corpuscular HGB Conc 33.4 g/dl (31.0-36.0); Mean Corpuscular Hemoglobin 28.6 pg (27.0-33.0); Mean Corpuscular Volume 85.4 fL (80-98); Mean Platelet Volume 9.1 fL (9.4-12.4); Neutrophils Absolute Auto 18.5 X10*3/uL (2.0-8.3); Neutrophils Percent Auto 91.6 % (45-73); Platelet Count 557 X10*3/uL (160-400); Red Blood Count 3.57 X10*6/uL (4.60-5.80); Red Cell Distribution Width 16.9 % (11.0-16.0); SCAN SMEAR FLAG 1; White Blood Count 20.2 X10*3/uL (4.8-10.8)
[2020-09-22 18:14] LABS: INTERNATIONAL NORM RATIO 1.3 (0.9-1.1); Prothrombin Time 15.5 SEC (10.8-13.0)
[2020-09-22] MEDS: 0.9 % Sodium Chloride 1,000 ML 999 ML IVCONT (18:30)
[2020-09-22 18:35] LABS: SLIDE REVIEW VERIFIED
[2020-09-22 18:44] LABS: Alanine Aminotransferase 17 U/L (0-40); Alkaline Phosphatase 223 U/L (39-117); Anion Gap 16 (12-20); Aspartate Amino Transferase 16 U/L (5-37); Bilirubin Direct 0.3 mg/dL (0.0-0.5); Bilirubin Total 0.4 mg/dL (0.0-1.0); Blood Urea Nitrogen 12 mg/dL (9-16); Calcium 8.3 mg/dL (8.4-10.2); Carbon Dioxide 32 mmol/L (22-29); Chloride 89 mmol/L (96-108); Creatinine Clr Calc Pharmacy 82.1; Estimated Glomerular Filt Rate > 60; Glucose Random 154 mg/dL (60-115); Potassium 4.6 mmol/L (3.3-5.1); Sodium 132 mmol/L (135-145); Total Protein 6.6 g/dL (6.5-8.0)
[2020-09-22 18:45] LABS: Lactic Acid 2.1 mmol/L (0.5-2.0)
[2020-09-22 18:50] LABS: Troponin-I High Sensitivity < 3.5 ng/L (<3.5-35.0)
[2020-09-22] MEDS: Piperacillin Sodium/Tazobactam 3.375 GM in 0.9 % Sodium Chloride 50 ML IV (19:39)
--- NOTE | 2020-09-22 19:43 | PC.NURSE ---
PT ARRIVED ON 4L O2, USES 2L AT HOME. ORIGINALLY ON CPAP BY EMS, TOLERATED REMOVAL AND PLACEMENT OF NC. HYPOTENSIVE SBP IN 80S ON ARRIVAL, SINUS TACH ON MONITOR IN 150S. GIVEN 125MG SOLUMEDROL, ALBUTEROL AND DUONEB WITH EMS. IV ACCESS BY EMS LOST ON ARRIVAL. #20 IN [place]. MENTATING WELL SINCE ARRIVAL, SPEAKING IN CLEAR FULL SENTENCES. LITER OF FLUIDS INFUSED, BP IMPROVING. PT HAS NOW RETURNED TO BASELINE SUPPLEMENTAL O2 DEMAND.
[2020-09-22 20:05] LABS: Reflex Lactate? Lactic Acid Added
--- NOTE | 2020-09-22 20:20 | PM.IMHP ---
History of Present Illness Date of Service: 09/22/20 Chief Complaint: Shortness of breath 65-year-old Citizen Of The [place]-speaking male presenting to the ER with chest tightness and shortness of breath. Patient has a history of chronic respiratory failure on 2 L of home oxygen. Apparently one of the family members had used a pulse oximetry and noted that the patient's heart rate was 130 however they missed took that for the patient's oxygen saturation and they took him off his oxygen. He was without it since this morning and his symptoms started from there. He was recently admitted to [facility] on September 04. At that time he was admitted to the ICU due to acute hypoxic respiratory failure with hypercapnia. He was treated with BiPAP and then transferred to medical floor. He was seen by the giver at that time and was tested for the need for BiPAP however he did not qualify. His oxygen requirements remained at 2 L. he was discharged with dexamethasone to finish a total of 10 days and to follow up with the giver. He reports that he had been feeling okay, in his usual state of health. He denied fever, chills, fever, nausea, vomiting, diarrhea. He did report today while he was office oxygen he did not feel hungry and did not eat much. In the ER, he was noted to have an elevated white blood cell count of 20.2. He also had a fever of 101.9 with heart rate in the 120s, 130s. According to the emergency room provider his oxygen saturation per EMS was 70% on room air. VBG showed pH of 7.39, pCO2 72, PO2 57. His blood pressures have remained low with systolic blood pressures in the 90s although he still tachycardic. He was on Levaquin and prednisone at home. In the ER, he received albuterol, dexamethasone, Tylenol, Zosyn and 1 L of IV fluid. Review of Systems Review of Systems: Denies any recent fever chills respiratory See HPI cardiovascular is adjustment of any PND or edema gastrointestinal see HPI genitourinary denies any dysuria frequency or hematuria musculoskeletal denies any joint pain or swelling neuropsych denies any weakness or seizures all other systems reviewed are negative [facility] Medical History (Updated 09/22/20 @ 20:45 by Laurie Sosa NP) Asthma Bronchiectasis Cocaine abuse COPD (chronic obstructive pulmonary disease) COVID-19 virus infection Latent tuberculosis Mycobacteria, atypical Pneumonia Respiratory failure with hypoxia and hypercapnia Family History Other Family history non-contributory HTN (hypertension) Social History Household Members: Children Housing: Apartment Alcohol intake: never Smoking Status: Former smoker Second Hand Smoke Exposure: No Use of substances other than those prescribed or required for medical reasons: No Substance Use Type: Crack/Cocaine Advance Directives: No Advance Directives Information Provided: No service: No Current occupational status: retired and disabled Meds Allergies Allergy/AdvReac Type Severity Reaction Status Date / Time morphine [MORPHINE] Allergy Mild VOMITING Verified 09/22/20 17:40 Home Medications Medication Instructions Recorded Confirmed Type Atrovent HFA 2 puff PO QID 06/01/20 09/22/20 History albuterol sulfate 1 amp INHALATION QID PRN 06/01/20 09/22/20 History aspirin 81 mg PO DAILY 06/01/20 09/22/20 History atorvastatin 20 mg PO DAILY 06/01/20 09/22/20 History montelukast 10 mg PO BEDTIME 06/01/20 09/22/20 History sildenafil [Viagra] 0.5 - 1 tab PO DAILY PRN 06/01/20 09/22/20 History Breo Ellipta 1 puff PO DAILY 08/05/20 09/22/20 History bupropion HCl 150 mg PO BID 08/05/20 09/22/20 History ferrous sulfate 325 mg PO DAILY 08/05/20 09/22/20 History fluticasone propionate 2 spray INTRANASAL DAILY PRN 08/05/20 09/22/20 History ketoconazole 1 appl TOPICAL 2XW 08/05/20 09/22/20 History multivitamin 1 tab PO DAILY 08/05/20 09/22/20 History nicotine (polacrilex) 2 mg PO Q4H 08/05/20 09/22/20 History sennosides [senna] 1 - 2 tab PO DAILY PRN 08/05/20 09/22/20 History Incruse Ellipta 1 inh INHALATION DAILY 09/03/20 09/03/20 History gabapentin 300 mg PO TID 09/03/20 09/22/20 History Physical Exam Vital Signs and Narrative: Vital Signs: Last Vital Signs Temp 99.6 F 09/22/20 19:48 Pulse 112 H 09/22/20 19:48 Resp 22 H 09/22/20 19:48 BP 95/52 L 09/22/20 19:48 Pulse Ox 98 09/22/20 19:48 Body Mass Index 16.2 Appearing thin and frail, dry peeling skin head is normocephalic atraumatic eyes pupils are PERRLA sclera is anicteric mouth throat mucous membranes are intact and moist neck is supple no lymphadenopathy, no JVD noted lung sounds diminished with some mild expiratory wheezes mostly to the left base heart regular rate sinus tachycardia positive bowel sounds, abdomen is soft, nontender neuro patient is alert x3, no focal deficits Results Labs CBC and Chem 7: 09/22/20 17:58 09/22/20 17:58 Labs: Laboratory Results - last 24 hr 09/22/20 09/22/20 09/22/20 17:58 17:58 17:58 MCV 85.4 MCH 28.6 MCHC 33.4 RDW 16.9 H Plt Count 557 H MPV 9.1 L Immature Gran % (Auto) 0.4 Neut % (Auto) 91.6 H Lymph % (Auto) 2.7 L Woodruff % (Auto) 5.0 Eos % (Auto) 0.1 Baso % (Auto) 0.2 Lymph # (Auto) 0.6 L Woodruff # (Auto) 1.0 Eos # (Auto) 0.0 Baso # (Auto) 0.0 Abs Immat Gran (auto) 0.09 H Absolute Neuts (auto) 18.5 H Absolute Nucleated RBC 0.000 Nucleated RBC % (auto) 0.0 Smear Tech's Comments VERIFIED PT 15.5 H INR 1.3 H VBG pH VBG pCO2 VBG pO2 VBG HCO3 VBG O2 Saturation VBG Base Excess Anion Gap 16 Estim Creat Clear Calc 82.1 Estimated GFR > 60 Random Glucose 154 H Lactic Acid Calcium 8.3 L Total Bilirubin 0.4 Direct Bilirubin 0.3 AST 16 ALT 17 Alkaline Phosphatase 223 H Troponin I High Sens Total Protein 6.6 Albumin 3.0 L 09/22/20 09/22/20 09/22/20 17:58 17:58 17:58 MCV MCH MCHC RDW Plt Count MPV Immature Gran % (Auto) Neut % (Auto) Lymph % (Auto) Woodruff % (Auto) Eos % (Auto) Baso % (Auto) Lymph # (Auto) Woodruff # (Auto) Eos # (Auto) Baso # (Auto) Abs Immat Gran (auto) Absolute Neuts (auto) Absolute Nucleated RBC Nucleated RBC % (auto) Smear Tech's Comments PT INR VBG pH 7.39 VBG pCO2 72 VBG pO2 57 VBG HCO3 44 VBG O2 Saturation 83.0 VBG Base Excess 16.9 Anion Gap Estim Creat Clear Calc Estimated GFR Random Glucose Lactic Acid 2.1 H* Calcium Total Bilirubin Direct Bilirubin AST ALT Alkaline Phosphatase Troponin I High Sens < 3.5 Total Protein Albumin Imaging Radiologist's Impressions: Impressions Chest X-Ray 09/22/20 17:20 IMPRESSION: Significant fibrotic changes with apical pleural thickening right upper lobe and minimal scarring with left apical pleural thickening. These findings are essentially stable and unchanged to 09/20/2020. Assessment and Plan (1) Hypoxia: Status: Acute (2) SIRS (systemic inflammatory response syndrome): Status: Acute 65-year-old Citizen Of [place]-speaking male admitted with multiple abnormalities. Patient qualifies for SIRS criteria as he does have a fever, elevated white count, tachycardia, tachypnea. Although white count may be related to steroid use and tachycardia is likely related to hypoxia. He has a history of bronchiectases which may be contributing no consolidation noted on chest x-ray. Also the removal of his oxygen for the day most likely contributed to this hypoxia. Sirs. Fever, tachycardia, tachypnea, leukocytosis. Blood cultures are pending, chest CT is pending to evaluate for acute pneumonia. Urinalysis is negative from 09/19. Acute on chronic respiratory failure secondary to bronchiectases. Likely contributing to sirs. Will treat with Zosyn for now, consider pulmonology consult. chest CT pending. Hypotension. Tachycardia likely contributing. Will give 2nd L of IV fluids and follow closely. Normocytic anemia. No signs of bleeding. Continue iron supplementation. Depression. Continue home medications. DVT prophylaxis with heparin Case discussed with Dr. Yuen Full code
--- NOTE | 2020-09-22 20:35 | CT_ITS ---
EXAMINATION: CT CHEST WITHOUT CONTRAST CLINICAL INFORMATION: Chronic lung disease with fever. COMPARISON: 09/03/2020 TECHNIQUE: Multidetector volumetric CT imaging of the chest was done. Axial MIP volume rendering provided. Sagittal and coronal reformatted images were obtained. This CT examination was performed using dose optimization techniques as appropriate, variously including the following: *Automated exposure control. *Adjustment of mA and/or kV according to patient size (this includes techniques or standardized protocols for targeted exams where dose is matched to indication/reason for exam; i.e. extremities or head). *Use of iterative reconstruction technique. DLP: 158 mGy-cm FINDINGS: LUNGS: There is emphysematous disease present. Volume loss in the right upper lobe. Thick-walled cavitary lesion in the right upper lobe, appears similar as compared to previous. Redemonstrated is bronchiectasis in the right upper lobe. Thick-walled cavitary lesion in the superior segment of the right lower lobe, similar to previous. There is bronchiectasis in the right lower lobe. There are multifocal areas of parenchymal opacities in the lateral and posterior aspect of the right lower lobe, which have increased as compared to previous. The findings are concerning for infiltrate superimposed on chronic changes. Cavitary lesion in the left upper lobe,, similar to previous. Patchy parenchymal opacity and interstitial prominence in the left upper lobe, new/more prominent as compared to previous. Left apical pleural thickening. A 1 cm nodular opacity in the superior segment of the left lower lobe, appears more dense as compared to previous. Irregular opacity in the left lower lobe image 32 series 5, similar to previous. There is new subpleural interstitial prominence and hazy opacity in the lateral aspect of the left lower lobe, image 42-27 series 5. MEDIASTINUM: Stable mediastinal lymphadenopathy. Limited evaluation for hilar lymphadenopathy. Normal caliber aorta. Atherosclerotic vascular calcification. Normal heart size. Coronary artery calcification. No pericardial effusion. PLEURA: Small right pleural effusion. AXILLA: No lymphadenopathy. UPPER ABDOMEN: Left renal cyst. OSSEOUS STRUCTURES: No acute or suspicious osseous abnormality. Stable superior endplate depression of one of the upper thoracic vertebral bodies. CT/CT chest wo con IMPRESSION: 1. Multifocal areas of parenchymal opacities in the lateral and posterior aspect of the right lower lobe, which have increased as compared to previous. Patchy parenchymal opacity and interstitial prominence in the left upper lobe, new/more prominent as compared to previous. There is a new subpleural interstitial prominence and hazy opacification in the lateral aspect left lower lobe. The findings are concerning for infectious or inflammatory process superimposed on chronic changes. Extensive abnormality otherwise in bilateral lungs, including cavitary lesions, bronchiectasis, otherwise similar as compared to previous. Recommend short-term follow up CT post treatment to ensure improvement/resolution. 2. Stable mediastinal lymphadenopathy. 3. Left renal cyst.
--- NOTE | 2020-09-22 20:57 | PC.NURSE ---
PT TO CT SCAN
[2020-09-22 21:01] LABS: COVID-19 Test Negative (Negative)
--- NOTE | 2020-09-22 21:57 | PM.EVENT ---
Event Note Date of Service: 09/23/20 Event Note: Patient seen and examined and case discussed with Laurie Sosa NP on date of service, 09/22/20. 65 year old man with history of COPD and recent COVID presented from home with fever and tachycardia. Was on Levaquin and steroid taper at home. States having some dyspnea with phlegm but cannot characterize it. Had measured fever in ED >101. Was recently here with COVID but repeat is negative. Noted to have downward trend in blood pressure in ED despite 2L of IV fluid, but he is asymptomtatic. Exam: Alert, no distress. Chest: diminished breath sounds throughout, no exp wheezing CV: regular rate, no murmur, distant heart sounds. Abd: soft, nontender, nondistended. A/P: 65 year old man with chronic hypoxemic respiratory failure due to COPD presented with fever and tachycardia. Clinical picture consistent with sepsis. Started on empiric Zosyn after blood cultures drawn. Will add dose of IV Vancomcyin given his frequent hospitalizations putting him at risk for MRSA. CXR noted-no infiltrate seen. Chest CT done and result pending. Has received 2L of fluid which is >30ml/kg given his weight. Bolusing another liter now and will monitor closely. Consider albumin IV as well.
[2020-09-22] MEDS: Montelukast Sodium 10 MG TABLET PO (22:00)
[2020-09-22] MEDS: Heparin Sodium,Porcine 5,000 UNIT/ML VIAL 5000 UNIT SUBCUT (22:00)
[2020-09-22] MEDS: 0.9 % Sodium Chloride 1,000 ML 500 ML IV (22:18)
[2020-09-22] MEDS: vancomycin HCL 500 MG in 0.9 % Sodium Chloride 100 ML 110 MG IV (23:21)
[2020-09-23] VITALS (9 sets, daily range): BP systolic 105–132; BP diastolic 60–75; PULSE 84–96; RESP 18–24; TEMP 36.4–37.3; O2SAT 95–99
[2020-09-23] MEDS: 0.9 % Sodium Chloride Flush 3 ML SYRINGE IVFLUSH ×4 (00:06→20:18)
[2020-09-23] MEDS: Albumin Human 25 % 100 ML IV (02:57)
[2020-09-23] MEDS: Piperacillin Sodium/Tazobactam 3.375 GM in 0.9 % Sodium Chloride 50 ML IV ×4 (03:26→20:17)
[2020-09-23 06:52] LABS: Hematocrit 24.8 % (42-52); Imm Gran Abs Auto 0.04 X10*3/uL (0.00-0.03); Imm Gran Pct Auto 0.4 % (0.0-0.4); Lymphocytes Absolute Auto 0.5 X10*3/uL (1.2-4.9); Lymphocytes Percent Auto 5.1 % (20-40); MANUAL DIFF FLAG SCAN; Mean Corpuscular HGB Conc 32.3 g/dl (31.0-36.0); Mean Corpuscular Hemoglobin 27.9 pg (27.0-33.0); Mean Corpuscular Volume 86.4 fL (80-98); Monocytes Absolute Auto 0.1 X10*3/uL (0.1-1.2); Monocytes Percent Auto 0.7 % (2-11); Neutrophils Absolute Auto 9.2 X10*3/uL (2.0-8.3); Neutrophils Percent Auto 93.8 % (45-73); Platelet Count 463 X10*3/uL (160-400); Red Blood Count 2.87 X10*6/uL (4.60-5.80); Red Cell Distribution Width 16.9 % (11.0-16.0); SCAN SMEAR FLAG 1; White Blood Count 9.8 X10*3/uL (4.8-10.8)
[2020-09-23] MEDS: Albuterol/Iprat 2.5/0.5MG 3 ML AMPUL.NEB INHALE ×3 (07:13→15:16)
[2020-09-23 07:23] LABS: Anion Gap 10 (12-20); Blood Urea Nitrogen 10 mg/dL (9-16); Calcium 7.3 mg/dL (8.4-10.2); Carbon Dioxide 32 mmol/L (22-29); Chloride 99 mmol/L (96-108); Creatinine Clr Calc Pharmacy 91.4; Estimated Glomerular Filt Rate > 60; Glucose Random 156 mg/dL (60-115); Potassium 4.3 mmol/L (3.3-5.1); Sodium 137 mmol/L (135-145)
[2020-09-23 07:52] LABS: SLIDE REVIEW VERIFIED
[2020-09-23 09:58] LABS: Vancomycin Random < 3.0 mcg/mL (15-20)
[2020-09-23] MEDS: Ferrous Sulfate 324 MG TABLET.DR PO (10:14)
[2020-09-23] MEDS: acetaZOLAMIDE 250 MG TABLET PO (10:14)
[2020-09-23] MEDS: Gabapentin 300 MG CAPSULE PO ×3 (10:15→20:18)
[2020-09-23] MEDS: buPROPion HCl XL 300 MG TAB.ER.24H PO (10:15)
[2020-09-23] MEDS: Heparin Sodium,Porcine 5,000 UNIT/ML VIAL 5000 UNIT SUBCUT ×2 (10:15→20:18)
[2020-09-23] MEDS: Multivitamin TABLET 1 TAB PO (10:15)
[2020-09-23] MEDS: Atorvastatin Calcium 20 MG TABLET PO (10:15)
[2020-09-23] MEDS: Aspirin Enteric Coated 81 MG TABLET.DR PO (10:17)
--- NOTE | 2020-09-23 11:29 | MHC.CM.PN ---
Addendum entered by Jacki Sinha 09/23/20 11:42: JUDI REVIEWED PTS MEDICARE RIGHTS WITH JOSEFINA WHO REPORTS UNDERSTANDING. A COPY WILL BE SENT TO THEM VIA CERTIFIED MAIL. Original Note: JUDI SPOKE TO PTS S/O/HCP JOSEFINA TILLMAN ([phone]) WHO REPORTS IT IS JUST THE TWO OF THEM IN THE HOME USUALLY BUT RIGHT NOW HER NIECE IS VISITING FROM [place]. JOSEFINA REPORTS THE PT SHOULD BE INDEPENDENT WITH ADLS BUT RECENTLY HAS NOT WANTED TO GET UP TO SHOWER OR EVEN EAT. SHE REPORTS HE IS ALWAYS TELLING HER HE CANNOT BREATH EVEN THOUGH HE IS WEARING THE OXYGEN. SHE REPORTS CONCERN THAT THE PT IS DEALING WITH ANXIETY. SHE ALSO REPORTS THE PT IS NOT SLEEPING AND KEEPING HER UP AT NIGHT WELL. SHE REPORTS THE PT FREQUENTLY REFUSES HIS MEDICATION AND SHE WOULD LIKE A NURSE TO COME TO THE HOME. SHE IS ALSO HOPING THAT THE PT CAN BE EVALUATED TO DETERMINE IF HE NEEDS ANXIETY OR SLEEP MEDS. TIMBER SETTER PT HAD NO SERVICES IN THE HOME. PT HAS OXYGEN AT HOME PROVIDED BY [facility]. PT AND HAVE REPORTED SHE IS THE HCP. COPY REQUESTED. JUDI WILL CONTACT [facility] TO DISCUSS POSSIBLE IN HOME SERVICES. PTS WAS ALSO ENCOURAGED TO DISCUSS THIS WITH THE [facility] NURSE WHEN THE SEE THE PT FOR HIS POST HOSPITAL DC ASSESSMENT. CURRENT DC PLAN IS HOME WITH SERVICES APPROVED BY [facility] PT WILL NEED A CHAIR VAN FOR TRANSPORTATION
--- NOTE | 2020-09-23 11:46 | MHC.CM.PN ---
JUDI CONTACTED SHANNON [phone] AT [facility] AND INFORMED HER OF CONCERNS EXPRESSED BY PTS . SHE REPORTS THEY WILL CONTACT THE PT AFTER DC TO DETERMINE IF A FULL POST DC ASSESSMENT NEEDS TO BE COMPLETED. SHE FEELS BASED ON THIS INFORMATION, THE PT MAY BENEFIT FROM HOME SERVICES. 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 JUDI WILL SENT REFERRAL TO [facility] AND IF THEY ARE UNABLE TO ACCEPT, IT WILL BE SENT TO [facility].
--- NOTE | 2020-09-23 13:49 | HO.PM.IMPN ---
Subjective Subjective Date of Service: 09/24/20 Interval History: Patient feels better this morning is still complaining of mild shortness of breath denied chest tightness, patient denies fever, no chills, no nausea ,no vomiting oxygen stable at 99% on 4 L At home patient is on 2 L of oxygen, no fever since arrival to ER. ros General no headache , no dizziness no fever chills. CVS no chest pain, no palpitation. Respiratory mild shortness of breath, cough Gastrointestinal no nausea, no vomiting, no abdominal pain Physical Exam Vital Signs: Vital Signs: Last Vital Signs Temp 97.6 F 09/23/20 09:56 Pulse 84 09/23/20 11:39 Resp 22 H 09/23/20 09:56 BP 118/62 09/23/20 09:56 Pulse Ox 99 09/23/20 09:56 Body Mass Index 16.2 General no acute distress. Neck is supple no JVD. CVS regular rate rhythm, Respiratory lungs diminished breath sounds, no respiratory distress, no wheeze, no rhonchi. Gastrointestinal abdomen soft, nontender, bowel sounds audible, no guarding , no rigidity. Extremities no edema. Neuro nonfocal , speech clear. Skin no rash Objective Data Current Medications Generic Name Dose Route Start Last Admin Trade Name Freq PRN Reason Stop Dose Admin Acetaminophen 650 mg 09/22/20 20:56 Acetaminophen 325 Mg Tablet PO Q6H PRN Pain, Mild (Pain Scale 1-3) Acetazolamide 250 mg 09/23/20 09:00 09/23/20 10:14 Acetazolamide 250 Mg Tablet PO 250 mg DAILY ALFONSO Administration Albuterol/Ipratropium 3 ml 09/23/20 08:00 09/23/20 11:37 Albuterol/Iprat 2.5/0.5mg 3 Ml Ampul.Neb INHALE 3 ml RQ4H WHILE AWAKE ALFONSO Administration Aspirin 81 mg 09/23/20 09:00 09/23/20 10:17 Aspirin Enteric Coated 81 Mg Tablet. PO 81 mg DAILY ALFONSO Administration Atorvastatin Calcium 20 mg 09/23/20 09:00 09/23/20 10:15 Atorvastatin Calcium 20 Mg Tablet PO 20 mg DAILY ALFONSO Administration Bupropion HCl 300 mg 09/23/20 09:00 09/23/20 10:15 Bupropion Hcl Xl 300 Mg Tab.Er.24h PO 300 mg DAILY ALFONSO Administration Ferrous Sulfate 324 mg 09/23/20 09:00 09/23/20 10:14 Ferrous Sulfate 324 Mg Tablet.Dr PO 324 mg DAILY ALFONSO Administration Fluticasone Propionate 2 spray 09/22/20 20:56 Fluticasone Propionate Nasal 16 Gm Ona NOSTRIL-B DAILY PRN Nasal Congestion Gabapentin 300 mg 09/23/20 09:00 09/23/20 10:15 Gabapentin 300 Mg Capsule PO 300 mg TID ALFONSO Administration Guaifenesin/Dextromethorphan 5 ml 09/22/20 20:56 Guaifenesin Dm 100/10/5 Ml 5 Ml Syrup PO Q4H PRN Cough Heparin Sodium (Porcine) 5,000 unit 09/22/20 21:00 09/23/20 10:15 Heparin Sodium,Porcine 5,000 Unit/Ml Vial SUBCUT 5,000 unit Q12H ALFONSO Administration Piperacillin Sod/Tazobactam 50 mls @ 100 mls/hr 09/22/20 21:00 09/23/20 10:15 Sod 3.375 gm/ Sodium Chloride IV 100 mls/hr Q6H ALFONSO Administration Vancomycin HCl 1,000 mg/ 270 mls @ 270 mls/hr 09/23/20 11:00 Sodium Chloride IV Q12H ALFONSO Methylprednisolone Sodium Succinate 40 mg 09/22/20 21:00 09/23/20 10:15 Methylprednisolone Sod Succ/Pf 40 Mg/Ml Vial IVPUSH 40 mg Q12H ALFONSO Administration Montelukast Sodium 10 mg 09/22/20 21:00 09/22/20 22:00 Montelukast Sodium 10 Mg Tablet PO 10 mg BEDTIME ALFONSO Administration Multivitamins/Vitamin C 1 tab 09/23/20 09:00 09/23/20 10:15 Multivitamin Tablet PO 1 tab DAILY ALFONSO Administration Ondansetron HCl 4 mg 09/22/20 20:56 Ondansetron Hcl 4 Mg/2 Ml Vial IVPUSH Q8H PRN Nausea and Vomiting Pharmacy Consult 1 each 09/22/20 21:55 Consult Rx Vancomycin Dosing MISCELLANE DAILY PRN Consult order Sodium Chloride 3 ml 09/23/20 00:00 09/23/20 10:16 0.9 % Sodium Chloride Flush 3 Ml Syringe IVFLUSH 3 ml QSHIFT [facility] Administration Labs CBC & Chem 7: 09/24/20 05:18 09/24/20 05:18 Microbiology Microbiology Results: Microbiology 09/22/20 17:58 Blood - Venous Blood Culture - Preliminary Assessment and Plan (1) COVID-19 virus infection: Problem details: recovered Status: Acute (2) Sepsis: Status: Acute (3) Hypoxia: Status: Acute Assessment and Plan: 65-year-old English-speaking male admitted with multiple abnormalities. Patient presented with fever, elevated white count, tachycardia, tachypnea. Sepsis due to pneumonia, status post recent COVID-19 infection Fever, tachycardia, tachypnea, and leukocytosis resolved, lactic acidosis resolved Continue IV Zosyn and IV vancomycin follow blood culture, chest CT showed multifocal areas of parenchymal opacities in both right and left lobes more prominent compared to previous imaging studies Acute on chronic respiratory failure with hypoxia and hypercarbia secondary to pneumonia with a backdrop bronchiectases. Continue IV antibiotics, cough medication, aggressive incentive spirometry out of bed to chair, await pulmonary input Patient recently discharged from [facility] requiring admission for COVID-19 infection and also had hypoxic and hypercarbic respiratory failure required BiPAP treated with IV steroids, upon discharge patient did not qualify for BiPAP treatment Hypotension. likley due to recent COVID infection, fever, medication, BP improved after 3 L of IV fluid in the emergency room. Tobacco use disorder Normocytic anemia. Hematocrit dropped to 24.8 likely dilutional no active bleeding noted with repeat CBC at a.m. Continue iron supplementation. Depression. Continue home medications. DVT prophylaxis with heparin
[2020-09-23] MEDS: vancomycin HCL 1,000 MG in 0.9 % Sodium Chloride 250 ML 270 MG IV ×2 (14:04→22:42)
--- NOTE | 2020-09-23 14:07 | PC.NURSE ---
unlabored at reset in bed. nsr on monitor. denies dyscomfort. states he's feeling better. ls cta. skin pwd. aware of 999 status. has talked to on phone
--- NOTE | 2020-09-23 16:57 | PC.NURSE ---
[facility] called. report given to zarha.
[2020-09-23] MEDS: Acetaminophen 325 MG TABLET 650 MG PO (17:09)
[2020-09-23] MEDS: Montelukast Sodium 10 MG TABLET PO (20:18)
[2020-09-23] MEDS: Calcium Carbonate 750 MG TAB.CHEW PO (20:18)
[2020-09-23] MEDS: guaiFENesin DM 100/10/5 ML 5 ML SYRUP PO (22:52)
[2020-09-24] VITALS (10 sets, daily range): BP systolic 97–120; BP diastolic 54–71; PULSE 72–103; RESP 18–20; TEMP 36.3–36.7; O2SAT 91–98; BMI 16.2
[2020-09-24] MEDS: Piperacillin Sodium/Tazobactam 3.375 GM in 0.9 % Sodium Chloride 50 ML IV ×4 (03:41→20:43)
[2020-09-24] MEDS: guaiFENesin DM 100/10/5 ML 5 ML SYRUP PO (04:15)
[2020-09-24 06:25] LABS: Basophils Percent Auto 0.1 % (0-2); Hematocrit 25.4 % (42-52); Hemoglobin 8.2 g/dl (14.0-18.0); Imm Gran Pct Auto 0.6 % (0.0-0.4); Lymphocytes Absolute Auto 0.4 X10*3/uL (1.2-4.9); Lymphocytes Percent Auto 2.4 % (20-40); MANUAL DIFF FLAG SCAN; Mean Corpuscular HGB Conc 32.3 g/dl (31.0-36.0); Mean Corpuscular Hemoglobin 28.4 pg (27.0-33.0); Mean Corpuscular Volume 87.9 fL (80-98); Mean Platelet Volume 9.6 fL (9.4-12.4); Monocytes Absolute Auto 0.4 X10*3/uL (0.1-1.2); Monocytes Percent Auto 2.6 % (2-11); Neutrophils Absolute Auto 15.8 X10*3/uL (2.0-8.3); Neutrophils Percent Auto 94.3 % (45-73); Platelet Count 538 X10*3/uL (160-400); Red Blood Count 2.89 X10*6/uL (4.60-5.80); Red Cell Distribution Width 17.9 % (11.0-16.0); SCAN SMEAR FLAG 1; White Blood Count 16.8 X10*3/uL (4.8-10.8)
[2020-09-24 06:53] LABS: Anion Gap 13 (12-20); Blood Urea Nitrogen 12 mg/dL (9-16); Calcium 7.7 mg/dL (8.4-10.2); Carbon Dioxide 28 mmol/L (22-29); Chloride 101 mmol/L (96-108); Creatinine Clr Calc Pharmacy 82.1; Estimated Glomerular Filt Rate > 60; Glucose Random 144 mg/dL (60-115); Sodium 138 mmol/L (135-145)
[2020-09-24] MEDS: Albuterol/Iprat 2.5/0.5MG 3 ML AMPUL.NEB INHALE ×4 (07:24→19:44)
[2020-09-24] MEDS: Heparin Sodium,Porcine 5,000 UNIT/ML VIAL 5000 UNIT SUBCUT ×2 (07:35→20:44)
[2020-09-24] MEDS: Multivitamin TABLET 1 TAB PO (07:36)
[2020-09-24] MEDS: Gabapentin 300 MG CAPSULE PO ×3 (07:36→20:44)
[2020-09-24] MEDS: Acetaminophen 325 MG TABLET 650 MG PO ×2 (07:36→20:59)
[2020-09-24] MEDS: acetaZOLAMIDE 250 MG TABLET PO (07:36)
[2020-09-24] MEDS: Aspirin Enteric Coated 81 MG TABLET.DR PO (07:36)
[2020-09-24] MEDS: buPROPion HCl XL 300 MG TAB.ER.24H PO (07:36)
[2020-09-24] MEDS: Ferrous Sulfate 324 MG TABLET.DR PO (07:36)
[2020-09-24] MEDS: Atorvastatin Calcium 20 MG TABLET PO (07:36)
[2020-09-24] MEDS: 0.9 % Sodium Chloride Flush 3 ML SYRINGE IVFLUSH ×3 (07:45→20:44)
[2020-09-24 08:43] LABS: SLIDE REVIEW VERIFIED
[2020-09-24 09:19] LABS: Procalcitonin 0.32 ng/mL
--- NOTE | 2020-09-24 10:19 | MHC.CLN ---
PT IS MODERATELY MALNOURISHED DIET RX: 2GM NA -WILL LIBERALIZE TO INCREASE PO RECOMMEND ADDING ENSURE BID TO INCREASE KCALS SEE ALSO CLINICAL NUTRITION ASSESSMENT
[2020-09-24] MEDS: vancomycin HCL 1,000 MG in 0.9 % Sodium Chloride 250 ML 270 MG IV (11:47)
--- NOTE | 2020-09-24 12:29 | HO.PM.IMPN ---
Subjective Subjective Date of Service: 09/24/20 Interval History: Patient feeling better this morning complaining of sore, scratchy throat, also complaining of cough and shortness of breath, no other acute issues overnight failure Review of Systems General no headache no dizziness no fever chills. CVS no chest pain, no palpitation. Respiratory cough productive of phlegm, shortness of breath Gastrointestinal no nausea no vomiting, no abdominal pain Physical Exam Vital Signs: Vital Signs: Last Vital Signs Temp 97.6 F 09/24/20 11:00 Pulse 98 09/24/20 11:31 Resp 18 09/24/20 11:00 BP 120/69 09/24/20 11:00 Pulse Ox 96 09/24/20 11:00 Body Mass Index 16.2 Constitutional : Alert, oriented Neck : Normal inspection, Supple Cardiovascular : RRR, S1 S2, no lower extremity edema Respiratory : Diminished breath sounds, bilateral rhonchi, no respiratory distress Gastrointestinal: Normal bowel sounds, Non tender, no rebound, no rigidity Neurological : Alert & oriented x3, No focal deficit Extremities no edema Objective Data Current Medications Generic Name Dose Route Start Last Admin Trade Name Freq PRN Reason Stop Dose Admin Acetaminophen 650 mg 09/22/20 20:56 09/24/20 07:36 Acetaminophen 325 Mg Tablet PO 650 mg Q6H PRN Administration Pain, Mild (Pain Scale 1-3) Acetazolamide 250 mg 09/23/20 09:00 09/24/20 07:36 Acetazolamide 250 Mg Tablet PO 250 mg DAILY ALFONSO Administration Albuterol/Ipratropium 3 ml 09/23/20 08:00 09/24/20 11:30 Albuterol/Iprat 2.5/0.5mg 3 Ml Ampul.Neb INHALE 3 ml RQ4H WHILE AWAKE ALFONSO Administration Aspirin 81 mg 09/23/20 09:00 09/24/20 07:36 Aspirin Enteric Coated 81 Mg Tablet.Dr PO 81 mg DAILY ALFONSO Administration Atorvastatin Calcium 20 mg 09/23/20 09:00 09/24/20 07:36 Atorvastatin Calcium 20 Mg Tablet PO 20 mg DAILY ALFONSO Administration Benzocaine 1 lozenge 09/24/20 12:23 Throat Lozenge, Medicated Lozenge MUCOUS MEM Q2H PRN Sore Throat Bupropion HCl 300 mg 09/23/20 09:00 09/24/20 07:36 Bupropion Hcl Xl 300 Mg Tab.Er.24h PO 300 mg DAILY ALFONSO Administration Ferrous Sulfate 324 mg 09/23/20 09:00 09/24/20 07:36 Ferrous Sulfate 324 Mg Tablet.Dr PO 324 mg DAILY ALFONSO Administration Fluticasone Propionate 2 spray 09/22/20 20:56 Fluticasone Propionate Nasal 16 Gm Bennett NOSTRIL-B DAILY PRN Nasal Congestion Gabapentin 300 mg 09/23/20 09:00 09/24/20 07:36 Gabapentin 300 Mg Capsule PO 300 mg TID ALFONSO Administration Guaifenesin/Dextromethorphan 5 ml 09/22/20 20:56 09/24/20 04:15 Guaifenesin Dm 100/10/5 Ml 5 Ml Syrup PO 5 ml Q4H PRN Administration Cough Heparin Sodium (Porcine) 5,000 unit 09/22/20 21:00 09/24/20 07:35 Heparin Sodium,Porcine 5,000 Unit/Ml Vial SUBCUT 5,000 unit Q12H ALFONSO Administration Piperacillin Sod/Tazobactam 50 mls @ 100 mls/hr 09/22/20 21:00 09/24/20 10:40 Sod 3.375 gm/ Sodium Chloride IV Infused Q6H ALFONSO Infusion Vancomycin HCl 1,000 mg/ 270 mls @ 270 mls/hr 09/23/20 11:00 09/24/20 11:47 Sodium Chloride IV 270 mls/hr Q12H ALFONSO Administration Methylprednisolone Sodium Succinate 40 mg 09/22/20 21:00 09/24/20 07:34 Methylprednisolone Sod Succ/Pf 40 Mg/Ml Vial IVPUSH 40 mg Q12H ALFONSO Administration Montelukast Sodium 10 mg 09/22/20 21:00 09/23/20 20:18 Montelukast Sodium 10 Mg Tablet PO 10 mg BEDTIME ALFONSO Administration Multivitamins/Vitamin C 1 tab 09/23/20 09:00 09/24/20 07:36 Multivitamin Tablet PO 1 tab DAILY ALFONSO Administration Ondansetron HCl 4 mg 09/22/20 20:56 Ondansetron Hcl 4 Mg/2 Ml Vial IVPUSH Q8H PRN Nausea and Vomiting Pharmacy Consult 1 each 09/22/20 21:55 Consult Rx Vancomycin Dosing MISCELLANE DAILY PRN Consult order Sodium Chloride 3 ml 09/23/20 00:00 09/24/20 07:45 0.9 % Sodium Chloride Flush 3 Ml Syringe IVFLUSH 3 ml QSHIFT ALFONSO Administration Labs CBC & Chem 7: 09/24/20 05:18 09/24/20 05:18 Microbiology Microbiology Results: Microbiology 09/22/20 17:58 Blood - Venous Blood Culture - Preliminary No growth after 24 hours. 09/22/20 18:08 Blood - Venous Blood Culture - Preliminary No growth after 24 hours. Assessment and Plan (1) Sepsis: Status: Acute (2) Acute and chronic respiratory failure: Status: Acute (3) COVID-19 virus infection: Problem details: recovered Status: Acute (4) Pneumonia: Status: Acute (5) Hypotension: Status: Acute (6) Tobacco use disorder: Status: Acute Assessment and Plan: 65-year-old Kazakh-speaking male admitted with multiple abnormalities. Patient presented with fever, elevated white count, tachycardia, tachypnea. Sepsis due to pneumonia, status post recent COVID-19 infection Fever, tachycardia, tachypnea, resolved, lactic acidosis resolved, WBC normalized but trending back up again likely due to steroid on IV Zosyn and IV vancomycin day 2,blood culture x2 negative, chest CT showed multifocal areas of parenchymal opacities in both right and left lobes more prominent compared to previous imaging studies question related to COVID infection , procalcitonin 0.32 , will change to by mouth antibiotic Augmentin for total 5 days Acute on chronic respiratory failure with hypoxia and hypercarbia secondary to pneumonia with a backdrop bronchiectases. Improving gradually wean oxygen patient is on 2 L of oxygen at home, continue aggressive incentive spirometry out of bed to chair Patient recently discharged from [facility] requiring admission for COVID-19 infection and also had hypoxic and hypercarbic respiratory failure required BiPAP treated with IV steroids, upon discharge patient did not qualify for BiPAP treatment, patient was sent home on steroids and antibiotics. Sore throat will add Cepacol lozenges Hypotension. likley due to recent COVID infection, fever, medication, BP improved after 3 L of IV fluid in the emergency room. Tobacco use disorder counseling done Normocytic anemia. Hematocrit dropped to 24.8 likely dilutional, question related to infection, no active bleeding noted , repeat hematocrit stable at 25.4, will check stool guaiac, iron studies, Patient on iron supplement Depression. Continue home medications. DVT prophylaxis with heparin
[2020-09-24] MEDS: Throat Lozenge, Medicated LOZENGE 1 LOZENGE MUCOUS MEM (15:44)
[2020-09-24] MEDS: Montelukast Sodium 10 MG TABLET PO (20:44)
[2020-09-24 22:39] LABS: Vancomycin Trough 13.8 mcg/mL (10.0-20.0)
[2020-09-25 03:26] VITALS: BP 107/59; PULSE 92; RESP 18; TEMP 36.5; O2SAT 98
[2020-09-25] MEDS: Piperacillin Sodium/Tazobactam 3.375 GM in 0.9 % Sodium Chloride 50 ML IV ×2 (03:26→08:15)
[2020-09-25 06:49] LABS: Basophils Percent Auto 0.1 % (0-2); Hematocrit 26.8 % (42-52); Hemoglobin 8.6 g/dl (14.0-18.0); Imm Gran Abs Auto 0.03 X10*3/uL (0.00-0.03); Imm Gran Pct Auto 0.3 % (0.0-0.4); Lymphocytes Absolute Auto 0.3 X10*3/uL (1.2-4.9); Lymphocytes Percent Auto 2.8 % (20-40); MANUAL DIFF FLAG SCAN; Mean Corpuscular HGB Conc 32.1 g/dl (31.0-36.0); Mean Corpuscular Hemoglobin 28.1 pg (27.0-33.0); Mean Corpuscular Volume 87.6 fL (80-98); Mean Platelet Volume 9.8 fL (9.4-12.4); Monocytes Absolute Auto 0.3 X10*3/uL (0.1-1.2); Monocytes Percent Auto 2.9 % (2-11); Neutrophils Absolute Auto 10.9 X10*3/uL (2.0-8.3); Neutrophils Percent Auto 93.9 % (45-73); Platelet Count 556 X10*3/uL (160-400); Red Blood Count 3.06 X10*6/uL (4.60-5.80); Red Cell Distribution Width 17.6 % (11.0-16.0); SCAN SMEAR FLAG 1; White Blood Count 11.6 X10*3/uL (4.8-10.8)
[2020-09-25 07:12] VITALS: BP 127/77; PULSE 89; RESP 18; TEMP 36.4; O2SAT 94
[2020-09-25 07:20] LABS: Iron 93 mcg/dL (45-160); Percent Iron Saturation 46 % (15-50); Total Iron Binding Capacity 202 mcg/dL (228-428); Unsaturated Iron Binding 109 ug/dL
[2020-09-25 07:28] LABS: Ferritin 589 ng/mL (20-250)
[2020-09-25] MEDS: Albuterol/Iprat 2.5/0.5MG 3 ML AMPUL.NEB INHALE ×2 (07:32→11:03)
[2020-09-25] MEDS: 0.9 % Sodium Chloride Flush 3 ML SYRINGE IVFLUSH (08:14)
[2020-09-25] MEDS: Heparin Sodium,Porcine 5,000 UNIT/ML VIAL 5000 UNIT SUBCUT (08:14)
[2020-09-25] MEDS: Aspirin Enteric Coated 81 MG TABLET.DR PO (08:15)
[2020-09-25] MEDS: Gabapentin 300 MG CAPSULE PO (08:15)
[2020-09-25] MEDS: Atorvastatin Calcium 20 MG TABLET PO (08:15)
[2020-09-25] MEDS: acetaZOLAMIDE 250 MG TABLET PO (08:15)
[2020-09-25] MEDS: Ferrous Sulfate 324 MG TABLET.DR PO (08:15)
[2020-09-25] MEDS: Multivitamin TABLET 1 TAB PO (08:15)
[2020-09-25] MEDS: buPROPion HCl XL 300 MG TAB.ER.24H PO (08:15)
[2020-09-25 08:41] LABS: SLIDE REVIEW VERIFIED
[2020-09-25] MEDS: predniSONE 20 MG TABLET PO (10:49)
[2020-09-25] MEDS: Amoxicillin/Potassium Clav 875 MG TABLET PO (10:49)
[2020-09-25 11:22] VITALS: BP 130/68; PULSE 97; RESP 18; TEMP 36.6; O2SAT 96
--- NOTE | 2020-09-25 12:00 | P.DS_ITS ---
DS: Providers Provider Date of Service: 09/25/20 Date of admission: 09/22/20 20:56 Primary care physician: Unknown Physician DS: Diagnosis Discharge Diagnosis (1) Sepsis: Status: Acute (2) Acute and chronic respiratory failure: Status: Acute (3) COVID-19 virus infection: Status: Acute Problem details: recovered (4) Pneumonia: Status: Acute (5) Hypotension: Status: Acute (6) Tobacco use disorder: Status: Acute DS: Medications Discharge Medications Home Medications: Home Medications Medication Instructions Recorded Confirmed Atrovent HFA 2 puff PO QID 06/01/20 09/22/20 albuterol sulfate 1 amp INHALATION QID PRN 06/01/20 09/22/20 aspirin 81 mg PO DAILY 06/01/20 09/22/20 atorvastatin 20 mg PO DAILY 06/01/20 09/22/20 montelukast 10 mg PO BEDTIME 06/01/20 09/22/20 sildenafil [Viagra] 0.5 - 1 tab PO DAILY PRN 06/01/20 09/22/20 bupropion HCl 150 mg PO BID 08/05/20 09/22/20 ferrous sulfate 325 mg PO DAILY 08/05/20 09/22/20 fluticasone propionate 2 spray INTRANASAL DAILY PRN 08/05/20 09/22/20 ketoconazole 1 appl TOPICAL 2XW 08/05/20 09/22/20 multivitamin 1 tab PO DAILY 08/05/20 09/22/20 nicotine (polacrilex) 2 mg PO Q4H 08/05/20 09/22/20 sennosides [senna] 1 - 2 tab PO DAILY PRN 08/05/20 09/22/20 Incruse Ellipta 1 inh INHALATION DAILY 09/03/20 09/03/20 gabapentin 300 mg PO TID 09/03/20 09/22/20 Previous Rx's Medication Instructions Recorded ipratropium 0.5 mg-albuterol 3 mg 3 ml INHALATION QID 30 Days #360 ml 06/28/20 (2.5 mg base)/3 mL nebulization soln acetazolamide 250 mg PO DAILY #30 tab 09/08/20 dextromethorphan-guaifenesin 5 ml PO Q4H PRN 7 Days ml 09/08/20 amoxicillin-pot clavulanate 875 mg PO Q12H #10 tab 09/25/20 prednisone 20 mg PO DAILY #5 tab 09/25/20 DS: Summary Hospital Course Hospital Course: History of present illness Chief Complaint: Shortness of breath 65-year-old Bhutanese-speaking male presenting to the ER with chest tightness and shortness of breath. Patient has a history of chronic respiratory failure on 2 L of home oxygen. Apparently one of the family members had used a pulse oximetry and noted that the patient's heart rate was 130 however they missed took that for the patient's oxygen saturation and they took him off his oxygen. He was without it since this morning and his symptoms started from there. He was recently admitted to [facility] on September 04. At that time he was admitted to the ICU due to acute hypoxic respiratory failure with hypercapnia. He was treated with BiPAP and then transferred to medical floor. He was seen by the uniform maker at that time and was tested for the need for BiPAP however he did not qualify. His oxygen requirements remained at 2 L. he was discharged with dexamethasone to finish a total of 10 days and to follow up with the uniform maker. He reports that he had been feeling okay, in his usual state of health. He denied fever, chills, fever, nausea, vomiting, diarrhea. He did report today while he was office oxygen he did not feel hungry and did not eat much. In the ER, he was noted to have an elevated white blood cell count of 20.2. He also had a fever of 101.9 with heart rate in the 120s, 130s. According to the emergency room provider his oxygen saturation per EMS was 70% on room air. VBG showed pH of 7.39, pCO2 72, PO2 57. His blood pressures have remained low with systolic blood pressures in the 90s although he still tachycardic. He was on Levaquin and prednisone at home. In the ER, he received albuterol, dexamethasone, Tylenol, Zosyn and 1 L of IV fluid. Past medical history Asthma Bronchiectasis Cocaine abuse COPD (chronic obstructive pulmonary disease) COVID-19 virus infection Latent tuberculosis Mycobacteria, atypical Pneumonia Respiratory failure with hypoxia and hypercapnia Hospital course 65-year-old Bhutanese-speaking male admitted with multiple abnormalities. Patient presented with fever, elevated white count, tachycardia, tachypnea. Sepsis due to pneumonia, status post recent COVID-19 infection,Fever, tachycardia, tachypnea, resolved, lactic acidosis resolved, WBC normalized but trending back up again likely due to steroid Patient treated with IV Zosyn and IV vancomycin ,blood culture x2 negative, chest CT showed multifocal areas of parenchymal opacities in both right and left lobes more prominent compared to previous imaging studies question related to COVID infection , procalcitonin 0.32 , since patient shortness of breath and hypoxemia significantly improved he is being discharged home on by mouth Augmentin for 5 more days he has been instructed to use cough medication, avoid smoking and continue home inhalers. Patient was recently diagnosed to have COVID on September 03, repeat COVID test on September 22 is negative. Acute on chronic respiratory failure with hypoxia and hypercarbia secondary to pneumonia with a backdrop of COPD and bronchiectases. Hypoxemia resolved patient is now on 2 L of home oxygen that he chronically use due to his underlying bronchiectasis and COPD patient was recently discharged from [facility] at that time required BiPAP and evaluation was made for home BiPAP but patient did not qualify. Hypotension. likley due to recent COVID infection, fever, use of viagra , BP improved after 3 L of IV fluid in the emergency room. Tobacco use disorder strongly recommend to abstain from smoking Normocytic anemia. Noted to have low hematocrit, no active bleeding was noted , iron studies within normal range likely due to COVID infection will need follow-up on CBC Depression. Continue home medications. Time Spent with Patient Time attestation: Total time spent providing and/or coordinating discharge services: Discharge coordination time: Greater than 30 minutes Physical Exam Vital Signs: Vital Signs: Last Vital Signs Temp 97.8 F 09/25/20 11:22 Pulse 97 09/25/20 11:22 Resp 18 09/25/20 11:22 BP 130/68 09/25/20 11:22 Pulse Ox 96 09/25/20 11:22 Body Mass Index 16.2 Constitutional : Alert, oriented, talking in full sentences Neck : Normal inspection, Supple Cardiovascular : RRR, S1 S2, no lower extremity edema Respiratory : Diminished breath sounds, few scattered ronchi,no respiratory distress Gastrointestinal: Normal bowel sounds, Non tender, no rebound, no rigidity Neurological : Alert & oriented x3, No focal deficit Extremities no edema DS: Data Data Completed and Pending Completed studies during hospitalization [Text1]: Procedures Assistance with Respiratory Ventilation, Less than 24 Consecutive Hours, Continuous Positive Airway Pressure (09/03/20) Detoxification Services for Substance Abuse Treatment (06/01/20) Insertion of Infusion Device into Superior Vena Cava, Percutaneous Approach (06/01/20) Introduction of Vasopressor into Peripheral Vein, Percutaneous Approach (06/01/20) Transfusion of Convalescent Plasma (Nonautologous) into Peripheral Vein, Percutaneous Approach, [employer] (09/03/20) Ultrasonography of Superior Vena Cava, Guidance (06/01/20) Labs on day of discharge: Laboratory Tests 09/22/20 09/22/20 09/22/20 17:58 17:58 17:58 WBC 20.2 H RBC 3.57 L Hgb 10.2 L Hct 30.5 L MCV 85.4 MCH 28.6 MCHC 33.4 RDW 16.9 H Plt Count 557 H MPV 9.1 L Immature Gran % (Auto) 0.4 Neut % (Auto) 91.6 H Lymph % (Auto) 2.7 L Calhoun % (Auto) 5.0 Eos % (Auto) 0.1 Baso % (Auto) 0.2 Lymph # (Auto) 0.6 L Calhoun # (Auto) 1.0 Eos # (Auto) 0.0 Baso # (Auto) 0.0 Abs Immat Gran (auto) 0.09 H Absolute Neuts (auto) 18.5 H Absolute Nucleated RBC 0.000 Nucleated RBC % (auto) 0.0 Smear Tech's Comments VERIFIED PT 15.5 H INR 1.3 H VBG pH VBG pCO2 VBG pO2 VBG HCO3 VBG O2 Saturation VBG Base Excess Sodium 132 L Potassium 4.6 Chloride 89 L Carbon Dioxide 32 H Anion Gap 16 BUN 12 Creatinine 0.59 Estim Creat Clear Calc 82.1 Estimated GFR > 60 Random Glucose 154 H Lactic Acid Lactic Acid Fup @ 2Hr Calcium 8.3 L Iron TIBC % Saturation Unsat Iron Binding Ferritin Total Bilirubin 0.4 Direct Bilirubin 0.3 AST 16 ALT 17 Alkaline Phosphatase 223 H Troponin I High Sens Total Protein 6.6 Albumin 3.0 L Procalcitonin Vancomycin Trough Random Vancomycin COVID-19 (LINDA) COVID-19 Clin Com 09/22/20 09/22/20 09/22/20 17:58 17:58 17:58 WBC RBC Hgb Hct MCV MCH MCHC RDW Plt Count MPV Immature Gran % (Auto) Neut % (Auto) Lymph % (Auto) Calhoun % (Auto) Eos % (Auto) Baso % (Auto) Lymph # (Auto) Calhoun # (Auto) Eos # (Auto) Baso # (Auto) Abs Immat Gran (auto) Absolute Neuts (auto) Absolute Nucleated RBC Nucleated RBC % (auto) Smear Tech's Comments PT INR VBG pH 7.39 VBG pCO2 72 VBG pO2 57 VBG HCO3 44 VBG O2 Saturation 83.0 VBG Base Excess 16.9 Sodium Potassium Chloride Carbon Dioxide Anion Gap BUN Creatinine Estim Creat Clear Calc Estimated GFR Random Glucose Lactic Acid 2.1 H* Lactic Acid Fup @ 2Hr Calcium Iron TIBC % Saturation Unsat Iron Binding Ferritin Total Bilirubin Direct Bilirubin AST ALT Alkaline Phosphatase Troponin I High Sens < 3.5 Total Protein Albumin Procalcitonin Vancomycin Trough Random Vancomycin COVID-19 (LINDA) COVID-19 Clin Com 09/22/20 09/22/20 09/23/20 20:39 20:39 06:43 WBC 9.8 RBC 2.87 L Hgb 8.0 L D Hct 24.8 L MCV 86.4 MCH 27.9 MCHC 32.3 RDW 16.9 H Plt Count 463 H MPV 9.0 L Immature Gran % (Auto) 0.4 Neut % (Auto) 93.8 H Lymph % (Auto) 5.1 L Calhoun % (Auto) 0.7 L Eos % (Auto) 0.0 Baso % (Auto) 0.0 Lymph # (Auto) 0.5 L Calhoun # (Auto) 0.1 Eos # (Auto) 0.0 Baso # (Auto) 0.0 Abs Immat Gran (auto) 0.04 H Absolute Neuts (auto) 9.2 H Absolute Nucleated RBC 0.000 Nucleated RBC % (auto) 0.0 Smear Tech's Comments VERIFIED PT INR VBG pH VBG pCO2 VBG pO2 VBG HCO3 VBG O2 Saturation VBG Base Excess Sodium Potassium Chloride Carbon Dioxide Anion Gap BUN Creatinine Estim Creat Clear Calc Estimated GFR Random Glucose Lactic Acid Lactic Acid Fup @ 2Hr 1.0 Calcium Iron TIBC % Saturation Unsat Iron Binding Ferritin Total Bilirubin Direct Bilirubin AST ALT Alkaline Phosphatase Troponin I High Sens Total Protein Albumin Procalcitonin Vancomycin Trough Random Vancomycin COVID-19 (LINDA) Negative COVID-19 Clin Com See Note 09/23/20 09/23/20 09/24/20 06:43 08:51 05:18 WBC 16.8 H RBC 2.89 L Hgb 8.2 L Hct 25.4 L MCV 87.9 MCH 28.4 MCHC 32.3 RDW 17.9 H Plt Count 538 H MPV 9.6 Immature Gran % (Auto) 0.6 H Neut % (Auto) 94.3 H Lymph % (Auto) 2.4 L Calhoun % (Auto) 2.6 Eos % (Auto) 0.0 Baso % (Auto) 0.1 Lymph # (Auto) 0.4 L Calhoun # (Auto) 0.4 Eos # (Auto) 0.0 Baso # (Auto) 0.0 Abs Immat Gran (auto) 0.10 H Absolute Neuts (auto) 15.8 H Absolute Nucleated RBC 0.000 Nucleated RBC % (auto) 0.0 Smear Tech's Comments VERIFIED PT INR VBG pH VBG pCO2 VBG pO2 VBG HCO3 VBG O2 Saturation VBG Base Excess Sodium 137 Potassium 4.3 Chloride 99 Carbon Dioxide 32 H Anion Gap 10 L BUN 10 Creatinine 0.53 Estim Creat Clear Calc 91.4 Estimated GFR > 60 Random Glucose 156 H Lactic Acid Lactic Acid Fup @ 2Hr Calcium 7.3 L D Iron TIBC % Saturation Unsat Iron Binding Ferritin Total Bilirubin Direct Bilirubin AST ALT Alkaline Phosphatase Troponin I High Sens Total Protein Albumin Procalcitonin Vancomycin Trough Random Vancomycin < 3.0 L COVID-19 (LINDA) COVID-19 Clin Com 09/24/20 09/24/20 09/24/20 05:18 05:18 21:55 WBC RBC Hgb Hct MCV MCH MCHC RDW Plt Count MPV Immature Gran % (Auto) Neut % (Auto) Lymph % (Auto) Calhoun % (Auto) Eos % (Auto) Baso % (Auto) Lymph # (Auto) Calhoun # (Auto) Eos # (Auto) Baso # (Auto) Abs Immat Gran (auto) Absolute Neuts (auto) Absolute Nucleated RBC Nucleated RBC % (auto) Smear Tech's Comments PT INR VBG pH VBG pCO2 VBG pO2 VBG HCO3 VBG O2 Saturation VBG Base Excess Sodium 138 Potassium 4.0 Chloride 101 Carbon Dioxide 28 Anion Gap 13 BUN 12 Creatinine 0.59 Estim Creat Clear Calc 82.1 Estimated GFR > 60 Random Glucose 144 H Lactic Acid Lactic Acid Fup @ 2Hr Calcium 7.7 L Iron TIBC % Saturation Unsat Iron Binding Ferritin Total Bilirubin Direct Bilirubin AST ALT Alkaline Phosphatase Troponin I High Sens Total Protein Albumin Procalcitonin 0.32 Vancomycin Trough 13.8 Random Vancomycin COVID-19 (LINDA) COVID-19 [employer] Com 09/25/20 09/25/20 05:26 05:26 WBC 11.6 H RBC 3.06 L Hgb 8.6 L Hct 26.8 L MCV 87.6 MCH 28.1 MCHC 32.1 RDW 17.6 H Plt Count 556 H MPV 9.8 Immature Gran % (Auto) 0.3 Neut % (Auto) 93.9 H Lymph % (Auto) 2.8 L Calhoun % (Auto) 2.9 Eos % (Auto) 0.0 Baso % (Auto) 0.1 Lymph # (Auto) 0.3 L Calhoun # (Auto) 0.3 Eos # (Auto) 0.0 Baso # (Auto) 0.0 Abs Immat Gran (auto) 0.03 Absolute Neuts (auto) 10.9 H Absolute Nucleated RBC 0.000 Nucleated RBC % (auto) 0.0 Smear Tech's Comments VERIFIED PT INR VBG pH VBG pCO2 VBG pO2 VBG HCO3 VBG O2 Saturation VBG Base Excess Sodium Potassium Chloride Carbon Dioxide Anion Gap BUN Creatinine Estim Creat Clear Calc Estimated GFR Random Glucose Lactic Acid Lactic Acid Fup @ 2Hr Calcium Iron 93 TIBC 202 L % Saturation 46 Unsat Iron Binding 109 Ferritin 589 H Total Bilirubin Direct Bilirubin AST ALT Alkaline Phosphatase Troponin I High Sens Total Protein Albumin Procalcitonin Vancomycin Trough Random Vancomycin COVID-19 (LINDA) COVID-19 Clin Com Preliminary micro results at discharge 09/22/20 17:58 Blood Culture - Preliminary Blood - Venous No growth after 48 hours. 09/22/20 18:08 Blood Culture - Preliminary Blood - Venous No growth after 48 hours. Discharge Plan Discharge Patient Disposition: Home, Self-Care Referrals: Ean Hickey MD [Physician] - 1 Week (TELE VISIT 10/08/2020 1:00PM. WILL CALL YOU TO DISCUSS YOUR HOSPITAL STAY. PLEASE CALL AND RESCHEDULE IF YOU CAN'T KEEP THIS APPOINTMENT.) Discharge Medications: New prednisone 20 mg Tablet 20 mg PO DAILY Qty: 5 RF: 0 amoxicillin-pot clavulanate 875-125 mg Tablet 875 mg PO Q12H Qty: 10 RF: 0 Continued ipratropium-albuterol 0.5 mg-3 mg(2.5 mg base)/3 mL solution for nebulization 3 ml inhalation QID 30 Days Qty: 360 RF: 6 gabapentin 300 mg Tablet 300 mg PO TID RF: 0 Incruse Ellipta 62.5 mcg/actuation Blister With Device 1 inh INHALATION DAILY RF: 0 acetazolamide 250 mg Tablet 250 mg PO DAILY Qty: 30 RF: 0 dextromethorphan-guaifenesin 10-100 mg/5 mL Syrup 5 ml PO Q4H PRN (Reason: Cough) 7 Days RF: 0 atorvastatin 20 mg tablet 20 mg PO DAILY RF: 0 albuterol sulfate 2.5 mg /3 mL (0.083 %) solution for nebulization 1 amp inhalation QID PRN (Reason: Wheezing) RF: 0 aspirin 81 mg tablet,delayed release (DR/EC) 81 mg PO DAILY RF: 0 sildenafil [Viagra] 100 mg tablet 0.5 - 1 tab PO DAILY PRN (Reason: Erectile Dysfunction) RF: 0 montelukast 10 mg tablet 10 mg PO BEDTIME RF: 0 Atrovent HFA 17 mcg/actuation HFA aerosol inhaler 2 puff PO QID RF: 0 multivitamin Tablet 1 tab PO DAILY RF: 0 bupropion HCl 150 mg tablet sustained-release 12 hr 150 mg PO BID RF: 0 sennosides [senna] 8.6 mg tablet 1 - 2 tab PO DAILY PRN (Reason: Constipation) RF: 0 ketoconazole 2 % shampoo 1 appl topical 2XW RF: 0 ferrous sulfate 325 mg (65 mg iron) tablet 325 mg PO DAILY RF: 0 fluticasone propionate 50 mcg/actuation spray,suspension 2 spray intranasal DAILY PRN (Reason: Nasal Congestion) RF: 0 nicotine (polacrilex) 2 mg lozenge 2 mg PO Q4H RF: 0 Discontinued levofloxacin 750 mg tablet 750 mg PO DAILY 10 Days Qty: 10 RF: 0 dexamethasone 6 mg tablet 6 mg PO DAILY Qty: 4 RF: 0 Breo Ellipta 200-25 mcg/dose blister with device 1 puff PO DAILY RF: 0 doxycycline hyclate 100 mg capsule 100 mg PO DAILY Qty: 14 RF: 0 prednisone 20 mg tablet 20 mg PO DAILY 10 Days Qty: 15 RF: 0 Discharge Orders: Discharge Order (Routine); Ordered 09/25/20 Ordered By: Maya Hall Diet: low fat, low cholesterol Activity on Discharge: As tolerated Stand Alone Forms: Patient Portal Discharge page Visit Report Forms: Patient Portal Discharge page Care Plan Goals: Take antibiotic and cough medication as prescribed Health Concerns: Strongly recommend to abstain from smoking Plan of Treatment: Follow-up with primary care physician in 1 week.
--- NOTE | 2020-09-25 12:14 | MHC.CM.PN ---
dc home no services
== END 2020-09-25 13:19 | disposition home or self-care (01) | DRG 871 ==
LOC: HO.ED 21:08 → HO.EDOVER 21:12 → HO.IMC 09-23 16:40
PROVIDERS: Nurse Practitioner Acute Care; Admitting Provider Internal Medicine; Emergency Provider Internal Medicine; PCP Nurse Practitioner Family; Visit Provider Hospitalist
DX: A41.9 Sepsis, unspecified organism (principal); J18.9 Pneumonia, unspecified organism; J96.22 Acute and chronic respiratory failure with hypercapnia; J96.21 Acute and chronic respiratory failure with hypoxia; J44.1 Chronic obstructive pulmonary disease with (acute) exacerbation; J44.0 Chronic obstructive pulmonary disease with (acute) lower respiratory infection; I95.9 Hypotension, unspecified; Z86.16 Personal history of COVID-19; F17.210 Nicotine dependence, cigarettes, uncomplicated; Z71.6 Tobacco abuse counseling; F32.9 Major depressive disorder, single episode, unspecified; Z20.822 Contact with and (suspected) exposure to COVID-19; Z99.81 Dependence on supplemental oxygen; Z88.5 Allergy status to narcotic agent; Z79.82 Long term (current) use of aspirin; Z79.51 Long term (current) use of inhaled steroids; Z79.899 Other long term (current) drug therapy
CPT/HCPCS: 36415; 71045; 71250; 80048; 80053; 80076; 80202; 81003; 82728; 82803; 83540; 83605; 84145; 84484; 85025; 85610; 87040; 87635; 93005; 94640; 96361; 96365; 96375; 99285; J1100; J2543; J2920; J3370; P9047

== ENCOUNTER 2020-09-27 07:54 | Emergency (ER) | payer OTHER, SELFPAY ==
--- NOTE | ~2020-09-27 | XR_ITS ---
EXAMINATION: XR CHEST CLINICAL INFORMATION: Shortness of breath COMPARISON: Previous chest x-rays most recent 09/22/2020 TECHNIQUE: Frontal view of the chest was obtained. FINDINGS: The cardiac and mediastinal contours are stable. The lungs are well-inflated. There is biapical pleural and parenchymal scarring, right greater than left. There is bilateral upper lobe volume loss. There is a cavity seen at the right lung apex that appears unchanged. There is bronchial wall thickening. No evidence of acute pneumonia is seen. There are small calcified pulmonary nodules at the lung bases that are stable. There is no pleural effusion or pneumothorax. Bony structures are unremarkable. XR/XR chest 1V IMPRESSION: Chronic changes of bilateral upper lobe volume loss and pleural and parenchymal scarring, cavity formation of the right lung apex and bronchial wall thickening. No evidence of acute pneumonia seen.
[2020-09-27 08:07] VITALS: BP 106/62; PULSE 110; RESP 20; TEMP 36.6; O2SAT 97; BMI 18.3
--- NOTE | 2020-09-27 08:36 | ED.ABDPAIN ---
HPI - Abdominal Pain General Chief Complaint: Nausea/Vomiting/Diarrhea Stated Complaint: n/v Time Seen by Provider: 09/27/20 08:13 History of Present Illness HPI narrative: Patient is a 65-year-old male with a history of respiratory failure. History of COPD. History of coronavirus. History of pneumonia. Was recently in the hospital was discharged on amoxicillin. Patient took an amoxicillin with an empty stomach and subsequently had abdominal pain in the epigastric area. Patient claims on arrival his symptom has already improved. No fever no chills. Initially had some nausea. It has resolved. Related Data Home Medications Medication Instructions Recorded Confirmed Atrovent HFA 2 puff PO QID 06/01/20 09/22/20 albuterol sulfate 1 amp INHALATION QID PRN 06/01/20 09/22/20 aspirin 81 mg PO DAILY 06/01/20 09/22/20 atorvastatin 20 mg PO DAILY 06/01/20 09/22/20 montelukast 10 mg PO BEDTIME 06/01/20 09/22/20 sildenafil [Viagra] 0.5 - 1 tab PO DAILY PRN 06/01/20 09/22/20 bupropion HCl 150 mg PO BID 08/05/20 09/22/20 ferrous sulfate 325 mg PO DAILY 08/05/20 09/22/20 fluticasone propionate 2 spray INTRANASAL DAILY PRN 08/05/20 09/22/20 ketoconazole 1 appl TOPICAL 2XW 08/05/20 09/22/20 multivitamin 1 tab PO DAILY 08/05/20 09/22/20 nicotine (polacrilex) 2 mg PO Q4H 08/05/20 09/22/20 sennosides [senna] 1 - 2 tab PO DAILY PRN 08/05/20 09/22/20 Incruse Ellipta 1 inh INHALATION DAILY 09/03/20 09/03/20 gabapentin 300 mg PO TID 09/03/20 09/22/20 Previous Rx's Medication Instructions Recorded ipratropium 0.5 mg-albuterol 3 mg 3 ml INHALATION QID 30 Days #360 ml 06/28/20 (2.5 mg base)/3 mL nebulization soln acetazolamide 250 mg PO DAILY #30 tab 09/08/20 dextromethorphan-guaifenesin 5 ml PO Q4H PRN 7 Days ml 09/08/20 amoxicillin-pot clavulanate 875 mg PO Q12H #10 tab 09/25/20 prednisone 20 mg PO DAILY #5 tab 09/25/20 Allergies Allergy/AdvReac Type Severity Reaction Status Date / Time morphine [MORPHINE] Allergy Mild VOMITING Verified 09/22/20 17:40 Review of Systems Review of Systems Yes all other systems are reviewed and are negative Physical Exam Vital Signs: Vital Signs: Last Vital Signs Temp 97.9 F 09/27/20 08:07 Pulse 110 H 09/27/20 08:07 Resp 20 09/27/20 08:07 BP 106/62 09/27/20 08:07 Pulse Ox 97 09/27/20 08:07 Body Mass Index 18.3 Appearance: Alert. Oriented X3. No acute distress. Eyes: Pupils equal, round and reactive to light. ENT: Pharynx normal. Neck: Normal inspection. Neck supple. No lymph nodes noted. No crepitus CVS: Normal heart rate and rhythm. Pulses normal. Normal S1 and S2 Respiratory: No respiratory distress. Breath sounds diminished. No Wheezing. No rales Abdomen: Soft and nontender. No rigidity. No distention. good BS x4 Skin: Skin warm and dry. Normal skin color. Normal skin turgor. Extremities: No lower extremity edema. Neurovascular intact to all extremities. No Lacerations. No Rash Neuro: Oriented X 3. No motor deficit. No sensory deficit. Moving all extermities. No slurred speech MDM - Abdominal Pain Medical Records Attestation: I reviewed the patient's medical records. Medical records narrative: Patient well-appearing in no distress. Patient's chest x-ray negative for any new infiltrate. Electrolytes unremarkable. Hemoglobin is baseline. Symptom has resolved lipase negative. No evidence for pancreatitis. Patient's EKG is unchanged. Will discharge patient home as patient's symptom has completely resolved. Baseline is on 2 L of oxygen Lab Data Attestation: I reviewed the patient's lab results. Result diagrams: 09/27/20 08:43 09/27/20 08:43 Labs: Lab Results 09/27/20 09/27/20 Range/Units 08:43 08:43 WBC 11.2 H (4.8-10.8) X10*3/uL RBC 3.66 L (4.60-5.80) X10*6/uL Hgb 10.3 L (14.0-18.0) g/dl Hct 31.5 L (42-52) % MCV 86.1 (80-98) fL MCH 28.1 (27.0-33.0) pg MCHC 32.7 (31.0-36.0) g/dl RDW 17.3 H (11.0-16.0) % Plt Count 682 H (160-400) X10*3/uL MPV 9.0 L (9.4-12.4) fL Immature Gran % (Auto) 0.4 (0.0-0.4) % Neut % (Auto) 81.8 H (45-73) % Lymph % (Auto) 5.3 L (20-40) % [place] % (Auto) 11.3 H (2-11) % Eos % (Auto) 1.1 (0-4) % Baso % (Auto) 0.1 (0-2) % Lymph # (Auto) 0.6 L (1.2-4.9) X10*3/uL [place] # (Auto) 1.3 H (0.1-1.2) X10*3/uL Eos # (Auto) 0.1 (0.0-0.4) X10*3/uL Baso # (Auto) 0.0 (0.0-0.2) X10*3/uL Abs Immat Gran (auto) 0.05 H (0.00-0.03) X10*3/uL Absolute Neuts (auto) 9.2 H (2.0-8.3) X10*3/uL Absolute Nucleated RBC 0.000 (0.0-0.012) X10*3/uL Nucleated RBC % (auto) 0.0 (0.0-0.2) /100WBC Smear Tech's Comments VERIFIED Sodium 135 (135-145) mmol/L Potassium 3.7 (3.3-5.1) mmol/L Chloride 90 L (96-108) mmol/L Carbon Dioxide 35 H (22-29) mmol/L Anion Gap 14 (12-20) BUN 12 (9-16) mg/dL Creatinine 0.55 (0.5-1.4) mg/dL Estim Creat Clear Calc 84.7 Estimated GFR > 60 Random Glucose 135 H (60-115) mg/dL Calcium 8.3 L D (8.4-10.2) mg/dL Total Bilirubin 0.4 (0.0-1.0) mg/dL Direct Bilirubin 0.3 (0.0-0.5) mg/dL AST 12 (5-37) U/L ALT 14 (0-40) U/L Alkaline Phosphatase 119 H D (39-117) U/L Total Protein 6.4 L (6.5-8.0) g/dL Albumin 3.3 L (3.5-5.0) g/dL Lipase 12 (8-78) U/L ECG Data Attestation: I personally reviewed and interpreted this ECG as follows: ECG interpretation date: 09/27/20 Interpretation: Sinus heart rate is 110 FL QRS QT within normal limits is no acute ST segment elevation noted Discharge Plan Discharge Clinical Impression: Hypoxia, Drug-induced nausea and vomiting Patient Disposition: Home, Self-Care Instructions: Abdominal Pain (ED) Prescriptions: No Action ipratropium-albuterol 0.5 mg-3 mg(2.5 mg base)/3 mL solution for nebulization 3 ml inhalation QID 30 Days Qty: 360 RF: 6 gabapentin 300 mg Tablet 300 mg PO TID RF: 0 Incruse Ellipta 62.5 mcg/actuation Blister With Device 1 inh INHALATION DAILY RF: 0 acetazolamide 250 mg Tablet 250 mg PO DAILY Qty: 30 RF: 0 dextromethorphan-guaifenesin 10-100 mg/5 mL Syrup 5 ml PO Q4H PRN (Reason: Cough) 7 Days RF: 0 atorvastatin 20 mg tablet 20 mg PO DAILY RF: 0 albuterol sulfate 2.5 mg /3 mL (0.083 %) solution for nebulization 1 amp inhalation QID PRN (Reason: Wheezing) RF: 0 aspirin 81 mg tablet,delayed release (DR/EC) 81 mg PO DAILY RF: 0 sildenafil [Viagra] 100 mg tablet 0.5 - 1 tab PO DAILY PRN (Reason: Erectile Dysfunction) RF: 0 montelukast 10 mg tablet 10 mg PO BEDTIME RF: 0 Atrovent HFA 17 mcg/actuation HFA aerosol inhaler 2 puff PO QID RF: 0 multivitamin Tablet 1 tab PO DAILY RF: 0 bupropion HCl 150 mg tablet sustained-release 12 hr 150 mg PO BID RF: 0 sennosides [senna] 8.6 mg tablet 1 - 2 tab PO DAILY PRN (Reason: Constipation) RF: 0 ketoconazole 2 % shampoo 1 appl topical 2XW RF: 0 ferrous sulfate 325 mg (65 mg iron) tablet 325 mg PO DAILY RF: 0 fluticasone propionate 50 mcg/actuation spray,suspension 2 spray intranasal DAILY PRN (Reason: Nasal Congestion) RF: 0 nicotine (polacrilex) 2 mg lozenge 2 mg PO Q4H RF: 0 prednisone 20 mg Tablet 20 mg PO DAILY Qty: 5 RF: 0 amoxicillin-pot clavulanate 875-125 mg Tablet 875 mg PO Q12H Qty: 10 RF: 0 Referrals: Eliza Lorenzana [employer] [Primary Care Provider] - 2 days Print Language: [facility] Past Medical History Attestation statement: The following information was validated with the patient. Medical History Asthma Bronchiectasis Cocaine abuse COPD (chronic obstructive pulmonary disease) COVID-19 virus infection Latent tuberculosis Mycobacteria, atypical Pneumonia Respiratory failure with hypoxia and hypercapnia Family History Family History Other Family history non-contributory HTN (hypertension) Social History Social History Household Members: Family Housing: House Alcohol intake: former Smoking Status: Former smoker Smoked in Last 30 Days: No Second Hand Smoke Exposure: No Use of substances other than those prescribed or required for medical reasons: No Substance Use Type: Crack/Cocaine Advance Directives: No Advance Directives Information Provided: No service: No Current occupational status: unemployed and retired
--- NOTE | 2020-09-27 08:37 | ECG_ITS ---
Test Reason : NAUSEA Blood Pressure : / mmHG Vent. Rate : 112 BPM Atrial Rate : 112 BPM P-R Int : 126 ms QRS Dur : 082 ms QT Int : 342 ms P-R-T Axes : 079 -30 062 degrees QTc Int : 466 ms Sinus tachycardia Biatrial enlargement Left axis deviation Abnormal ECG When compared with ECG of 22-SEP-2020 18:20, No significant change was found Referred By: Elly Ramírez Electronically Signed By:CRISTINA SOLORZANO
[2020-09-27 08:52] LABS: Basophils Percent Auto 0.1 % (0-2); Eosinophils Absolute Auto 0.1 X10*3/uL (0.0-0.4); Eosinophils Percent Auto 1.1 % (0-4); Hematocrit 31.5 % (42-52); Hemoglobin 10.3 g/dl (14.0-18.0); Imm Gran Abs Auto 0.05 X10*3/uL (0.00-0.03); Imm Gran Pct Auto 0.4 % (0.0-0.4); Lymphocytes Absolute Auto 0.6 X10*3/uL (1.2-4.9); Lymphocytes Percent Auto 5.3 % (20-40); MANUAL DIFF FLAG SCAN; Mean Corpuscular HGB Conc 32.7 g/dl (31.0-36.0); Mean Corpuscular Hemoglobin 28.1 pg (27.0-33.0); Mean Corpuscular Volume 86.1 fL (80-98); Monocytes Absolute Auto 1.3 X10*3/uL (0.1-1.2); Monocytes Percent Auto 11.3 % (2-11); Neutrophils Absolute Auto 9.2 X10*3/uL (2.0-8.3); Neutrophils Percent Auto 81.8 % (45-73); Platelet Count 682 X10*3/uL (160-400); Red Blood Count 3.66 X10*6/uL (4.60-5.80); Red Cell Distribution Width 17.3 % (11.0-16.0); SCAN SMEAR FLAG 1; White Blood Count 11.2 X10*3/uL (4.8-10.8)
[2020-09-27 09:18] LABS: SLIDE REVIEW VERIFIED
[2020-09-27 09:23] LABS: Alanine Aminotransferase 14 U/L (0-40); Albumin Level 3.3 g/dL (3.5-5.0); Alkaline Phosphatase 119 U/L (39-117); Anion Gap 14 (12-20); Aspartate Amino Transferase 12 U/L (5-37); Bilirubin Direct 0.3 mg/dL (0.0-0.5); Bilirubin Total 0.4 mg/dL (0.0-1.0); Blood Urea Nitrogen 12 mg/dL (9-16); Calcium 8.3 mg/dL (8.4-10.2); Carbon Dioxide 35 mmol/L (22-29); Chloride 90 mmol/L (96-108); Creatinine Clr Calc Pharmacy 84.7; Estimated Glomerular Filt Rate > 60; Glucose Random 135 mg/dL (60-115); Lipase 12 U/L (8-78); Potassium 3.7 mmol/L (3.3-5.1); Sodium 135 mmol/L (135-145); Total Protein 6.4 g/dL (6.5-8.0)
--- NOTE | 2020-09-27 09:56 | PC.NURSE ---
pt given PO trial of crackers adn keisha vimal prior to discharge.
[2020-09-27 10:19] VITALS: BP 103/64
== END 2020-09-27 10:21 | disposition home or self-care (01) ==
PROVIDERS: Emergency Provider Emergency Medicine Emergency Medical Services; PCP Nurse Practitioner Family
DX: R09.02 Hypoxemia (principal); R11.2 Nausea with vomiting, unspecified; R10.13 Epigastric pain; Z79.899 Other long term (current) drug therapy; Z86.16 Personal history of COVID-19
CPT/HCPCS: 36415; 71045; 80048; 80076; 83690; 85025; 93005; 99283; 99284

== ENCOUNTER → 2020-10-01 11:33 | Outpatient (BNVA) | payer OTHER, SELFPAY | PROVIDERS: Visit Provider Internal Medicine Pulmonary Disease | DX: Z13.89 Encounter for screening for other disorder (principal) | CPT/HCPCS: 99212 ==

== ENCOUNTER 2020-10-10 08:13 | Emergency (ER) | payer OTHER, SELFPAY ==
[2020-10-10] VITALS (7 sets, daily range): BP systolic 82–98; BP diastolic 50–64; PULSE 100–132; RESP 20–22; TEMP 36.8; O2SAT 90–98; BMI 16.5
--- NOTE | ~2020-10-10 | CT_ITS ---
EXAMINATION: CT ANGIOGRAM OF THE CHEST WITH AND WITHOUT CONTRAST (CT PULMONARY ANGIOGRAM FOR PE) CLINICAL INFORMATION: Reason for Exam elevated ddimer, r/o PE COMPARISON: 09/22/2020 CT chest and 09/03/2020 chest CTA. TECHNIQUE: Prior to contrast administration, noncontrast localization images were obtained. Subsequently, multidetector volumetric imaging was performed from the thoracic inlet to below the diaphragms following the administration of 80 mL Omnipaque 350 intravenous contrast. No contrast reaction reported Sagittal, coronal, and MIP oblique sagittal reformatted images were obtained on the CT workstation, uploaded to PACS, and reviewed. This CT examination was performed using dose optimization techniques as appropriate, variously including the following: *Automated exposure control *Adjustment of mA and/or kV according to patient size (this includes techniques or standardized protocols for targeted exams where dose is matched to indication/reason for exam; i.e. extremities or head) *Use of iterative reconstruction technique Total exam dose-length product 179 mGy-cm FINDINGS: QUALITY OF STUDY/CONTRAST BOLUS: Satisfactory. PULMONARY ARTERIES: No central or segmental pulmonary emboli. Diminished vascularity in the right upper lobe secondary to the cavitary lesion is again seen without significant change. THORACIC AORTA: No aneurysm or dissection. LUNGS/PLEURA/AIRWAYS: Mild to moderate upper lobe predominant centrilobular emphysema is seen. Again seen are irregular cavitary thick-walled lesions in the right upper lobe, posteriorly in the right lower lobe and posterolaterally in the left upper lobe without significant change. An air-fluid level associated with the right lower lobe lesion is not significantly changed. There has been interval increase in infiltrative changes anterolaterally in the right lower lobe extending to the right lung base. A spiculated nodule in the left lower lobe is not significantly changed measuring approximately 1.1 cm (image 33, series 7). There has been interval increase in infiltrative changes anterolaterally in the right upper lobe. A few small scattered nodules have not significantly changed. MEDIASTINUM: The thyroid gland is unremarkable. Normal heart size. No pericardial effusion. Moderate coronary artery calcifications are seen. No hilar or mediastinal lymphadenopathy. No evidence of septal bowing or right heart strain. CHEST WALL/AXILLA: No axillary or internal mammary lymphadenopathy. OSSEOUS STRUCTURES: Mild multilevel degenerative changes without suspicious abnormality. UPPER ABDOMEN: No significant change. No reflux of contrast into the hepatic veins to suggest elevated right heart pressures. CT/CT angio chest PE protocol IMPRESSION: 1. No evidence for pulmonary embolism. 2. Interval increase in right lower lobe infiltrates suggesting an infectious/inflammatory process. This can be monitored in the short-term with chest radiographs as clinically indicated. 3. Other incidental findings detailed above have not significantly changed. VTE: negative
--- NOTE | ~2020-10-10 | XR_ITS ---
EXAMINATION: XR CHEST CLINICAL INFORMATION: Cough COMPARISON: Chest radiograph 09/27/2020, 09/22/2020, 09/20/2020, 08/20/2020 TECHNIQUE: Portable upright AP view of the chest was obtained. FINDINGS: There is new opacity right lateral base and right peripheral mid zone when compared with prior studies suggesting pneumonia. The remainder the lungs are similar to prior exams with bilateral upper zone renal parenchymal scarring, greater on right. There is retraction of the hilar again seen and right paratracheal fullness as before. No effusion. Heart size normal. Vascularity unremarkable. XR/XR chest 1V IMPRESSION: New airspace opacities right lateral base and right mid zone since prior exam 09/27/2020, suggesting pneumonia. No effusion.
--- NOTE | 2020-10-10 08:26 | ECG_ITS ---
Test Reason : SOB Blood Pressure : / mmHG Vent. Rate : 128 BPM Atrial Rate : 128 BPM P-R Int : 118 ms QRS Dur : 074 ms QT Int : 304 ms P-R-T Axes : 078 -45 060 degrees QTc Int : 443 ms Sinus tachycardia Left axis deviation Abnormal ECG When compared with ECG of 27-SEP-2020 08:48, No significant change was found Referred By: Diann Michel Electronically Signed By:Joseph Uribe
--- NOTE | 2020-10-10 08:28 | ED.SOB ---
HPI - SOB/Dyspnea General Chief Complaint: Abdominal Pain Stated Complaint: L FLANK PAIN,COUGH,FEVER (100.6), ? 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 Mode of arrival: EMS Limitations: no limitations History of Present Illness HPI Narrative: 65 yo male on home O2 2L NC, bronchiectasis, mycobacterium, pneumonia, prior COVID 19 - but states he isn't taking it called EMS for R sided pleuritic chest pain O2 sat 90% on RA, tachycardia, BP for EMS 89 - given 400cc fluid, noted he started to feel sick this AM MD elicited complaint: shortness of breath, cough, pain with inspiration and chest pain Pertinent past history: COPD and pneumonia Onset (ago): hour(s) (4) Context: recent illness Timing: constant Severity: moderate Exacerbating factors: coughing and inspiration Relieving factors: oxygen and rest Known history of: COPD Associated symptoms: chest pain, pain with inspiration, cough and sputum production Treatment prior to arrival: oxygen and bronchodilator Related Data Home Medications Medication Instructions Recorded Confirmed Atrovent HFA 2 puff PO QID 06/01/20 10/10/20 albuterol sulfate 2.5 mg INHALATION QID PRN 06/01/20 10/10/20 aspirin 81 mg PO DAILY 06/01/20 10/10/20 atorvastatin 20 mg PO DAILY 06/01/20 10/10/20 montelukast 10 mg PO BEDTIME 06/01/20 10/10/20 sildenafil [Viagra] 0.5 - 1 tab PO DAILY PRN 06/01/20 10/10/20 bupropion HCl 150 mg PO BID 08/05/20 10/10/20 ferrous sulfate 325 mg PO DAILY 08/05/20 10/10/20 fluticasone propionate 2 spray INTRANASAL DAILY PRN 08/05/20 10/10/20 ketoconazole 1 appl TOPICAL 2XW 08/05/20 10/10/20 multivitamin 1 tab PO DAILY 08/05/20 10/10/20 sennosides [senna] 1 tab PO BEDTIME PRN 08/05/20 10/10/20 Incruse Ellipta 1 inh INHALATION DAILY 09/03/20 10/10/20 docusate sodium 100 mg PO BID 10/10/20 10/10/20 fluticasone furoate-vilanterol 1 inh INHALATION DAILY 10/10/20 10/10/20 [Breo Ellipta] gabapentin 300 mg PO TID 10/10/20 10/10/20 valsartan 40 mg PO DAILY 10/10/20 10/10/20 Previous Rx's Medication Instructions Recorded ipratropium 0.5 mg-albuterol 3 mg 3 ml INHALATION QID 30 Days #360 ml 06/28/20 (2.5 mg base)/3 mL nebulization soln acetazolamide 250 mg PO DAILY #30 tab 09/08/20 amoxicillin-pot clavulanate 1 tab PO BID #14 tab 10/10/20 [Augmentin] doxycycline hyclate 100 mg PO BID 7 Days #14 cap 10/10/20 prednisone 40 mg PO DAILY 4 Days #8 tab 10/10/20 Allergies Allergy/AdvReac Type Severity Reaction Status Date / Time morphine [MORPHINE] Allergy Mild VOMITING Verified 10/01/20 11:35 Review of Systems Review of Systems: Constitutional : No Weight loss, No Fever, pos Chills ENT/Mouth : No sore throat, No Rhinorrhea Eyes: No Eye Pain, No Swelling Cardiovascular : pos Chest Pain, pos SOB, no Dyspnea on Exertion, No Orthopnea, No Edema, No Palpitations Respiratory : pos Cough, No Sputum Gastrointestinal : pos Nausea, No Vomiting, No Diarrhea, No abdominal Pain, No Hematochezia, No Melena Genitourinary : No Dysuria, No Urinary Frequency Musculoskeletal : No joint pain, No Myalgias, No Joint Swelling Skin : No Skin Lesions, No rash Neuro : No Weakness, No Numbness, No Dizziness, No Headache Psych : No Anxiety/Panic, No Depression Heme/Lymph: No Bruising, No Lymphadenopathy Endocrine : No Polyuria, No Polydipsia All other systems reviewed and are negative [facility] Past Medical History Attestation statement: The following information was validated with the patient. Medical History Asthma Bronchiectasis Cocaine abuse COPD (chronic obstructive pulmonary disease) COVID-19 virus infection Latent tuberculosis Mycobacteria, atypical Pneumonia Respiratory failure with hypoxia and hypercapnia Family History Family History Other Family history non-contributory HTN (hypertension) Social History Social History Household Members: Family Housing: House Alcohol intake: former Smoking Status: Former smoker Second Hand Smoke Exposure: No Substance Use Type: Crack/Cocaine Advance Directives: No Advance Directives Information Provided: No service: No Current occupational status: unemployed and retired Physical Exam Vital Signs: Vital Signs: Last Vital Signs Temp 98.2 F 10/10/20 08:22 Pulse 107 H 10/10/20 13:09 Resp 22 H 10/10/20 12:00 BP 98/64 10/10/20 13:09 Pulse Ox 98 10/10/20 12:00 Body Mass Index 16.5 Appearance: Alert. Oriented X3. No acute distress. Eyes: Pupils equal, round and reactive to light. ENT: Pharynx normal. Neck: Normal inspection. Neck supple. CVS: tachycardic heart rate and rhythm. Pulses normal. Respiratory: No respiratory distress. Breath sounds decreased, wheezes and rhonchi RLL Abdomen: Soft and nontender. Skin: Skin warm and dry. Normal skin color. Normal skin turgor. Extremities: No lower extremity edema. No calf ttp Neuro: Oriented X 3. No motor deficit. No sensory deficit. Course Course Course Narrative: elevated ddimer CTA PE ordered but patient's fluids just started will reassess after bolus resuscitation BP 98 responding to fluids at this time will continue to observe received 30cc/kg bolus given recent stay HCAP coverage done will need admission pateint refusing admission now demanding to leave, aware he has pneumonia - refuses to stay, upset after talking to the hospitalists - wants to leave AMA MDM - SOB/Dyspnea MDM Narrative Medical decision making narrative: 65 yo male with hypoxia, bronchiectasis, recurrent pneumonia - COVID already this winter at this time c/o R sided pleuritic chest pain, was not wearing his home O2 - will need labs, cultures, IV steroids, xopenex, empiric zosyn, tylenol - ddimer for possible PE Lab Data Result diagrams: 10/10/20 09:01 10/10/20 08:54 Labs: Lab Results 10/10/20 10/10/20 10/10/20 Range/Units 08:53 08:54 08:54 WBC (4.8-10.8) X10*3/uL RBC (4.60-5.80) X10*6/uL Hgb (14.0-18.0) g/dl Hct (42-52) % MCV (80-98) fL MCH (27.0-33.0) pg MCHC (31.0-36.0) g/dl RDW (11.0-16.0) % Plt Count (160-400) X10*3/uL MPV (9.4-12.4) fL Immature Gran % (Auto) (0.0-0.4) % Neut % (Auto) (45-73) % Lymph % (Auto) (20-40) % Wirt % (Auto) (2-11) % Eos % (Auto) (0-4) % Baso % (Auto) (0-2) % Lymph # (Auto) (1.2-4.9) X10*3/uL Wirt # (Auto) (0.1-1.2) X10*3/uL Eos # (Auto) (0.0-0.4) X10*3/uL Baso # (Auto) (0.0-0.2) X10*3/uL Abs Immat Gran (auto) (0.00-0.03) X10*3/uL Absolute Neuts (auto) (2.0-8.3) X10*3/uL Absolute Nucleated RBC (0.0-0.012) X10*3/uL Nucleated RBC % (auto) (0.0-0.2) /100WBC Smear Tech's Comments D-Dimer NG/ML Sodium 134 L (135-145) mmol/L Potassium 4.7 D (3.3-5.1) mmol/L Chloride 91 L (96-108) mmol/L Carbon Dioxide 33 H (22-29) mmol/L Anion Gap 15 (12-20) BUN 10 (9-16) mg/dL Creatinine 0.59 (0.5-1.4) mg/dL Estim Creat Clear Calc 75.8 Estimated GFR > 60 Random Glucose 120 H (60-115) mg/dL Lactic Acid 2.1 H* (0.5-2.0) mmol/L Lactic Acid Fup @ 2Hr (0.5-2.0) mmol/L Calcium 7.7 L D (8.4-10.2) mg/dL Magnesium 2.0 (1.6-2.6) mg/dL Total Bilirubin 0.3 (0.0-1.0) mg/dL Direct Bilirubin 0.2 (0.0-0.5) mg/dL AST 20 D (5-37) U/L ALT 18 (0-40) U/L Alkaline Phosphatase 165 H D (39-117) U/L Troponin I High Sens (<3.5-35.0) ng/L B-Natriuretic Peptide (<100) pg/mL Total Protein 6.4 L (6.5-8.0) g/dL Albumin 3.1 L (3.5-5.0) g/dL Lipase (8-78) U/L Procalcitonin 0.06 ng/mL COVID-19 (LINDA) (Negative) COVID-19 Clin Com 10/10/20 10/10/20 10/10/20 Range/Units 08:54 08:57 09:01 WBC 22.1 H (4.8-10.8) X10*3/uL RBC 3.38 L (4.60-5.80) X10*6/uL Hgb 9.6 L (14.0-18.0) g/dl Hct 30.0 L (42-52) % MCV 88.8 (80-98) fL MCH 28.4 (27.0-33.0) pg MCHC 32.0 (31.0-36.0) g/dl RDW 18.5 H (11.0-16.0) % Plt Count 588 H (160-400) X10*3/uL MPV 8.5 L (9.4-12.4) fL Immature Gran % (Auto) 0.5 H (0.0-0.4) % Neut % (Auto) 83.6 H (45-73) % Lymph % (Auto) 7.0 L (20-40) % Wirt % (Auto) 8.5 (2-11) % Eos % (Auto) 0.1 (0-4) % Baso % (Auto) 0.3 (0-2) % Lymph # (Auto) 1.5 (1.2-4.9) X10*3/uL Wirt # (Auto) 1.9 H (0.1-1.2) X10*3/uL Eos # (Auto) 0.0 (0.0-0.4) X10*3/uL Baso # (Auto) 0.1 (0.0-0.2) X10*3/uL Abs Immat Gran (auto) 0.10 H (0.00-0.03) X10*3/uL Absolute Neuts (auto) 18.5 H (2.0-8.3) X10*3/uL Absolute Nucleated RBC 0.000 (0.0-0.012) X10*3/uL Nucleated RBC % (auto) 0.0 (0.0-0.2) /100WBC Smear Tech's Comments VERIFIED D-Dimer NG/ML Sodium (135-145) mmol/L Potassium (3.3-5.1) mmol/L Chloride (96-108) mmol/L Carbon Dioxide (22-29) mmol/L Anion Gap (12-20) BUN (9-16) mg/dL Creatinine (0.5-1.4) mg/dL Estim Creat Clear Calc Estimated GFR Random Glucose (60-115) mg/dL Lactic Acid (0.5-2.0) mmol/L Lactic Acid Fup @ 2Hr (0.5-2.0) mmol/L Calcium (8.4-10.2) mg/dL Magnesium (1.6-2.6) mg/dL Total Bilirubin (0.0-1.0) mg/dL Direct Bilirubin (0.0-0.5) mg/dL AST (5-37) U/L ALT (0-40) U/L Alkaline Phosphatase (39-117) U/L Troponin I High Sens < 3.5 (<3.5-35.0) ng/L B-Natriuretic Peptide (<100) pg/mL Total Protein (6.5-8.0) g/dL Albumin (3.5-5.0) g/dL Lipase (8-78) U/L Procalcitonin ng/mL COVID-19 (LINDA) Negative (Negative) COVID-19 Clin Com See Note 10/10/20 10/10/20 10/10/20 Range/Units 09:01 09:01 09:01 WBC (4.8-10.8) X10*3/uL RBC (4.60-5.80) X10*6/uL Hgb (14.0-18.0) g/dl Hct (42-52) % MCV (80-98) fL MCH (27.0-33.0) pg MCHC (31.0-36.0) g/dl RDW (11.0-16.0) % Plt Count (160-400) X10*3/uL MPV (9.4-12.4) fL Immature Gran % (Auto) (0.0-0.4) % Neut % (Auto) (45-73) % Lymph % (Auto) (20-40) % Wirt % (Auto) (2-11) % Eos % (Auto) (0-4) % Baso % (Auto) (0-2) % Lymph # (Auto) (1.2-4.9) X10*3/uL Wirt # (Auto) (0.1-1.2) X10*3/uL Eos # (Auto) (0.0-0.4) X10*3/uL Baso # (Auto) (0.0-0.2) X10*3/uL Abs Immat Gran (auto) (0.00-0.03) X10*3/uL Absolute Neuts (auto) (2.0-8.3) X10*3/uL Absolute Nucleated RBC (0.0-0.012) X10*3/uL Nucleated RBC % (auto) (0.0-0.2) /100WBC Smear Tech's Comments D-Dimer 2747 NG/ML Sodium (135-145) mmol/L Potassium (3.3-5.1) mmol/L Chloride (96-108) mmol/L Carbon Dioxide (22-29) mmol/L Anion Gap (12-20) BUN (9-16) mg/dL Creatinine (0.5-1.4) mg/dL Estim Creat Clear Calc Estimated GFR Random Glucose (60-115) mg/dL Lactic Acid (0.5-2.0) mmol/L Lactic Acid Fup @ 2Hr (0.5-2.0) mmol/L Calcium (8.4-10.2) mg/dL Magnesium (1.6-2.6) mg/dL Total Bilirubin (0.0-1.0) mg/dL Direct Bilirubin (0.0-0.5) mg/dL AST (5-37) U/L ALT (0-40) U/L Alkaline Phosphatase (39-117) U/L Troponin I High Sens (<3.5-35.0) ng/L B-Natriuretic Peptide 26 (<100) pg/mL Total Protein (6.5-8.0) g/dL Albumin (3.5-5.0) g/dL Lipase 26 (8-78) U/L Procalcitonin ng/mL COVID-19 (LINDA) (Negative) COVID-19 Clin Com 10/10/20 Range/Units 12:45 WBC (4.8-10.8) X10*3/uL RBC (4.60-5.80) X10*6/uL Hgb (14.0-18.0) g/dl Hct (42-52) % MCV (80-98) fL MCH (27.0-33.0) pg MCHC (31.0-36.0) g/dl RDW (11.0-16.0) % Plt Count (160-400) X10*3/uL MPV (9.4-12.4) fL Immature Gran % (Auto) (0.0-0.4) % Neut % (Auto) (45-73) % Lymph % (Auto) (20-40) % Wirt % (Auto) (2-11) % Eos % (Auto) (0-4) % Baso % (Auto) (0-2) % Lymph # (Auto) (1.2-4.9) X10*3/uL Wirt # (Auto) (0.1-1.2) X10*3/uL Eos # (Auto) (0.0-0.4) X10*3/uL Baso # (Auto) (0.0-0.2) X10*3/uL Abs Immat Gran (auto) (0.00-0.03) X10*3/uL Absolute Neuts (auto) (2.0-8.3) X10*3/uL Absolute Nucleated RBC (0.0-0.012) X10*3/uL Nucleated RBC % (auto) (0.0-0.2) /100WBC Smear Tech's Comments D-Dimer NG/ML Sodium (135-145) mmol/L Potassium (3.3-5.1) mmol/L Chloride (96-108) mmol/L Carbon Dioxide (22-29) mmol/L Anion Gap (12-20) BUN (9-16) mg/dL Creatinine (0.5-1.4) mg/dL Estim Creat Clear Calc Estimated GFR Random Glucose (60-115) mg/dL Lactic Acid (0.5-2.0) mmol/L Lactic Acid Fup @ 2Hr 0.7 (0.5-2.0) mmol/L Calcium (8.4-10.2) mg/dL Magnesium (1.6-2.6) mg/dL Total Bilirubin (0.0-1.0) mg/dL Direct Bilirubin (0.0-0.5) mg/dL AST (5-37) U/L ALT (0-40) U/L Alkaline Phosphatase (39-117) U/L Troponin I High Sens (<3.5-35.0) ng/L B-Natriuretic Peptide (<100) pg/mL Total Protein (6.5-8.0) g/dL Albumin (3.5-5.0) g/dL Lipase (8-78) U/L Procalcitonin ng/mL COVID-19 (LINDA) (Negative) COVID-19 Clin Com ECG Data Attestation: I personally reviewed and interpreted this ECG as follows: ECG interpretation date: 10/10/20 ECG interpretation time: 09:14 Interpretation: Rate: 128 Rhythm: sinus tachycardia [place]: left Normal P waves. Normal SHERIE. Normal QRS complex. ST T wave : normal, no RIKKI qTC: normal prior studies: no acute ischemia The study has been interpreted contemporaneously by me. . Discharge Plan Discharge Clinical Impression: Acidosis, lactic Pneumonia Qualifiers: Pneumonia type: due to unspecified organism Laterality: right Lung location: lower lobe of lung Qualified Code(s): J18.9 - Pneumonia, unspecified organism Leukocytosis Qualifiers: Leukocytosis type: unspecified Qualified Code(s): D72.829 - Elevated white blood cell count, unspecified COPD (chronic obstructive pulmonary disease) Qualifiers: COPD type: COPD with acute exacerbation Qualified Code(s): J44.1 - Chronic obstructive pulmonary disease with (acute) exacerbation Patient Disposition: Left Against Medical Advice Instructions: Against Medical Advice (ED), Pneumonia (ED) Additional Instructions: return to ED for any worsening symptoms or concerns Prescriptions: New doxycycline hyclate 100 mg capsule 100 mg PO BID 7 Days Qty: 14 RF: 0 prednisone 20 mg tablet 40 mg PO DAILY 4 Days Qty: 8 RF: 0 amoxicillin-pot clavulanate [Augmentin] 875-125 mg tablet 1 tab PO BID Qty: 14 RF: 0 No Action ipratropium-albuterol 0.5 mg-3 mg(2.5 mg base)/3 mL solution for nebulization 3 ml inhalation QID 30 Days Qty: 360 RF: 6 Incruse Ellipta 62.5 mcg/actuation Blister With Device 1 inh INHALATION DAILY RF: 0 acetazolamide 250 mg Tablet 250 mg PO DAILY Qty: 30 RF: 0 docusate sodium 100 mg Capsule 100 mg PO BID RF: 0 valsartan 40 mg Tablet 40 mg PO DAILY RF: 0 Breo Ellipta 200-25 mcg/dose Blister With Device 1 inh INHALATION DAILY RF: 0 gabapentin 300 mg Capsule 300 mg PO TID RF: 0 atorvastatin 20 mg tablet 20 mg PO DAILY RF: 0 albuterol sulfate 2.5 mg /3 mL (0.083 %) solution for nebulization 2.5 mg inhalation QID PRN (Reason: Wheezing) RF: 0 aspirin 81 mg tablet,delayed release (DR/EC) 81 mg PO DAILY RF: 0 sildenafil [Viagra] 100 mg tablet 0.5 - 1 tab PO DAILY PRN (Reason: Erectile Dysfunction) RF: 0 montelukast 10 mg tablet 10 mg PO BEDTIME RF: 0 Atrovent HFA 17 mcg/actuation HFA aerosol inhaler 2 puff PO QID RF: 0 multivitamin Tablet 1 tab PO DAILY RF: 0 bupropion HCl 150 mg tablet sustained-release 12 hr 150 mg PO BID RF: 0 sennosides [senna] 8.6 mg tablet 1 tab PO BEDTIME PRN (Reason: Constipation) RF: 0 ketoconazole 2 % shampoo 1 appl topical 2XW RF: 0 ferrous sulfate 325 mg (65 mg iron) tablet 325 mg PO DAILY RF: 0 fluticasone propionate 50 mcg/actuation spray,suspension 2 spray intranasal DAILY PRN (Reason: Nasal Congestion) RF: 0 Referrals: Eliza Lorenzana NP [Primary Care Provider] - 2 days
[2020-10-10 09:11] LABS: Basophils Absolute Auto 0.1 X10*3/uL (0.0-0.2); Basophils Percent Auto 0.3 % (0-2); Eosinophils Percent Auto 0.1 % (0-4); Hemoglobin 9.6 g/dl (14.0-18.0); Imm Gran Pct Auto 0.5 % (0.0-0.4); Lymphocytes Absolute Auto 1.5 X10*3/uL (1.2-4.9); MANUAL DIFF FLAG SCAN; Mean Corpuscular Hemoglobin 28.4 pg (27.0-33.0); Mean Corpuscular Volume 88.8 fL (80-98); Mean Platelet Volume 8.5 fL (9.4-12.4); Monocytes Absolute Auto 1.9 X10*3/uL (0.1-1.2); Monocytes Percent Auto 8.5 % (2-11); Neutrophils Absolute Auto 18.5 X10*3/uL (2.0-8.3); Neutrophils Percent Auto 83.6 % (45-73); Platelet Count 588 X10*3/uL (160-400); Red Cell Distribution Width 18.5 % (11.0-16.0); SCAN SMEAR FLAG 1; White Blood Count 22.1 X10*3/uL (4.8-10.8)
[2020-10-10 09:15] LABS: Red Blood Count 3.38 X10*6/uL (4.60-5.80)
[2020-10-10 09:28] LABS: SLIDE REVIEW VERIFIED
[2020-10-10] MEDS: methylPREDNISolone Sod Succ/PF 125 MG/2 ML VIAL 60 MG IVPUSH (09:29)
[2020-10-10] MEDS: Acetaminophen 325 MG TABLET 650 MG PO (09:29)
[2020-10-10] MEDS: Piperacillin Sodium/Tazobactam 3.375 GM in 0.9 % Sodium Chloride 50 ML IV (09:29)
[2020-10-10] MEDS: 0.9 % Sodium Chloride 500 ML IV ×2 (09:30→13:10)
[2020-10-10 09:31] LABS: Lactic Acid 2.1 mmol/L (0.5-2.0)
[2020-10-10 09:31] LABS: COVID-19 Test Negative (Negative); IDNOW Serial# 9DD0AD1C
[2020-10-10 09:43] LABS: Troponin-I High Sensitivity < 3.5 ng/L (<3.5-35.0)
[2020-10-10 09:46] LABS: Lipase 26 U/L (8-78)
[2020-10-10 09:56] LABS: Alanine Aminotransferase 18 U/L (0-40); Albumin Level 3.1 g/dL (3.5-5.0); Alkaline Phosphatase 165 U/L (39-117); Anion Gap 15 (12-20); Aspartate Amino Transferase 20 U/L (5-37); Bilirubin Direct 0.2 mg/dL (0.0-0.5); Bilirubin Total 0.3 mg/dL (0.0-1.0); Blood Urea Nitrogen 10 mg/dL (9-16); Calcium 7.7 mg/dL (8.4-10.2); Carbon Dioxide 33 mmol/L (22-29); Chloride 91 mmol/L (96-108); Creatinine Clr Calc Pharmacy 75.8; Estimated Glomerular Filt Rate > 60; Glucose Random 120 mg/dL (60-115); Potassium 4.7 mmol/L (3.3-5.1); Sodium 134 mmol/L (135-145); Total Protein 6.4 g/dL (6.5-8.0)
[2020-10-10 10:02] LABS: B Type Natriuretic Peptide 26 pg/mL (<100); D Dimer 2747 NG/ML
[2020-10-10 10:05] LABS: Procalcitonin 0.06 ng/mL
[2020-10-10] MEDS: iohexoL 350 MG/ML 100 ML INFUS..BTL 65 ML IV (10:46)
[2020-10-10 11:03] LABS: Reflex Lactate? Lactic Acid Added
[2020-10-10] MEDS: vancomycin HCL 750 MG in 0.9 % Sodium Chloride 250 ML 265 MG IV (11:03)
[2020-10-10] MEDS: 0.9 % Sodium Chloride 1,000 ML 999 ML IVCONT (11:03)
[2020-10-10 13:15] LABS: ~Lactic Acid-LAB USE ONLY 0.7 mmol/L (0.5-2.0)
--- NOTE | 2020-10-10 13:38 | PC.NURSE ---
PT DECLINED ADMISSION WHEN HOSPIOTALIST ARRIVED TO ADMIT. AWARE. WILL DC WITH USE OF HAIR BOILER
--- NOTE | 2020-10-10 14:03 | PC.NURSE ---
DC TO WR ON O2 AFTER PT CONFIRMS AGAIN HE WANTS TO LEAVE. 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 PT STATES RIDE IS ON WAY WITH
== END 2020-10-10 14:00 | disposition left against medical advice (07) ==
PROVIDERS: Emergency Provider Emergency Medicine; PCP Nurse Practitioner Family
DX: E87.2 Acidosis (principal); J18.9 Pneumonia, unspecified organism; D72.829 Elevated white blood cell count, unspecified; J44.1 Chronic obstructive pulmonary disease with (acute) exacerbation; Z20.822 Contact with and (suspected) exposure to COVID-19; Z87.01 Personal history of pneumonia (recurrent); Z99.81 Dependence on supplemental oxygen; Z79.899 Other long term (current) drug therapy; Z87.891 Personal history of nicotine dependence
CPT/HCPCS: 36415; 71045; 71275; 80048; 80076; 83605; 83690; 83735; 83880; 84145; 84484; 85025; 85379; 87040; 87635; 93005; 94640; 96361; 96365; 96367; 96375; 99284; 99285; J2543; J2930; J3370; Q9967

== ENCOUNTER 2020-10-15 03:53 | Inpatient (IN) | payer OTHER, SELFPAY ==
[2020-10-15] VITALS (11 sets, daily range): BP systolic 83–155; BP diastolic 47–106; PULSE 78–154; RESP 19–36; TEMP 36.1–37; O2SAT 82–97; BMI 21.2
--- NOTE | ~2020-10-15 | XR_ITS ---
EXAMINATION: XR CHEST CLINICAL INFORMATION: Dyspnea COMPARISON: 10/10/2020 TECHNIQUE: Frontal view of the chest was obtained. FINDINGS: Cardiac leads overlie the chest. Similar appearance of patchy opacities throughout the right lung. No pleural effusion. No pneumothorax. Bullous disease at the apices. The cardiomediastinal silhouette is within normal limits. XR/XR chest 1V IMPRESSION: Similar appearance of patchy opacities throughout the right lung. Emphysema.
--- NOTE | 2020-10-15 04:03 | ECG_ITS ---
Test Reason : DYSPNEA Blood Pressure : / mmHG Vent. Rate : 150 BPM Atrial Rate : 150 BPM P-R Int : 116 ms QRS Dur : 076 ms QT Int : 272 ms P-R-T Axes : 076 -37 068 degrees QTc Int : 429 ms Sinus tachycardia Right atrial enlargement Left axis deviation Abnormal ECG When compared with ECG of 10-OCT-2020 09:08, No significant changes seen Referred By: Miguelina Ontiveros Electronically Signed By:TRINY HUBBARD MD
[2020-10-15 04:14] LABS: Basophils Absolute Auto 0.1 X10*3/uL (0.0-0.2); Basophils Percent Auto 0.2 % (0-2); Eosinophils Absolute Auto 0.2 X10*3/uL (0.0-0.4); Hematocrit 31.7 % (42-52); Hemoglobin 9.9 g/dl (14.0-18.0); Imm Gran Abs Auto 0.64 X10*3/uL (0.00-0.03); Imm Gran Pct Auto 2.6 % (0.0-0.4); Lymphocytes Absolute Auto 3.5 X10*3/uL (1.2-4.9); Lymphocytes Percent Auto 13.9 % (20-40); MANUAL DIFF FLAG SCAN; Mean Corpuscular HGB Conc 31.2 g/dl (31.0-36.0); Mean Corpuscular Hemoglobin 28.3 pg (27.0-33.0); Mean Corpuscular Volume 90.6 fL (80-98); Mean Platelet Volume 8.9 fL (9.4-12.4); Monocytes Absolute Auto 2.5 X10*3/uL (0.1-1.2); Monocytes Percent Auto 10.1 % (2-11); Neutrophils Absolute Auto 18.1 X10*3/uL (2.0-8.3); Neutrophils Percent Auto 72.2 % (45-73); Platelet Count 698 X10*3/uL (160-400); Red Cell Distribution Width 18.8 % (11.0-16.0); SCAN SMEAR FLAG 1
--- NOTE | 2020-10-15 04:17 | PC.NURSE ---
MD and RT at bedside with powder hand. IV established, all labs including BCX x 2 and lactic, urine and Covid obtained and sent. EKG obtained by nursing. VSS however pt remains tachycardic. Call santoro within reach, continue to monitor.
--- NOTE | 2020-10-15 04:18 | ED.SOB ---
HPI - SOB/Dyspnea General Chief Complaint: Dyspnea Stated Complaint: sob Time Seen by Provider: 10/15/20 04:04 Source: patient and EMS Mode of arrival: EMS Limitations: no limitations History of Present Illness HPI Narrative: Patient comes to the emergency room complaining of shortness of breath. Patient states it happened very suddenly, he is usually on 2 L of oxygen. Per EMS, patient was found on room air saturating at 82%. It is unclear if patient was using his 2 L or if he was on room air. Initially he was put on a non-rebreather, oxygen saturation increased to 98%, he was given 125 mg of Solu-Medrol. Patient states he use a breathing treatment prior to EMS arrival. Of note, patient was discharged on September 25, patient was hospitalized for sepsis, COVID-19 pneumonia, respiratory failure MD elicited complaint: shortness of breath Related Data Home Medications Medication Instructions Recorded Confirmed Atrovent HFA 2 puff PO QID 06/01/20 10/10/20 albuterol sulfate 2.5 mg INHALATION QID PRN 06/01/20 10/10/20 aspirin 81 mg PO DAILY 06/01/20 10/10/20 atorvastatin 20 mg PO DAILY 06/01/20 10/10/20 montelukast 10 mg PO BEDTIME 06/01/20 10/10/20 sildenafil [Viagra] 0.5 - 1 tab PO DAILY PRN 06/01/20 10/10/20 bupropion HCl 150 mg PO BID 08/05/20 10/10/20 ferrous sulfate 325 mg PO DAILY 08/05/20 10/10/20 fluticasone propionate 2 spray INTRANASAL DAILY PRN 08/05/20 10/10/20 ketoconazole 1 appl TOPICAL 2XW 08/05/20 10/10/20 multivitamin 1 tab PO DAILY 08/05/20 10/10/20 sennosides [senna] 1 tab PO BEDTIME PRN 08/05/20 10/10/20 Incruse Ellipta 1 inh INHALATION DAILY 09/03/20 10/10/20 docusate sodium 100 mg PO BID 10/10/20 10/10/20 fluticasone furoate-vilanterol 1 inh INHALATION DAILY 10/10/20 10/10/20 [Breo Ellipta] gabapentin 300 mg PO TID 10/10/20 10/10/20 valsartan 40 mg PO DAILY 10/10/20 10/10/20 Previous Rx's Medication Instructions Recorded ipratropium 0.5 mg-albuterol 3 mg 3 ml INHALATION QID 30 Days #360 ml 06/28/20 (2.5 mg base)/3 mL nebulization soln acetazolamide 250 mg PO DAILY #30 tab 09/08/20 amoxicillin-pot clavulanate 1 tab PO BID #14 tab 10/10/20 [Augmentin] doxycycline hyclate 100 mg PO BID 7 Days #14 cap 10/10/20 prednisone 40 mg PO DAILY 4 Days #8 tab 10/10/20 Allergies Allergy/AdvReac Type Severity Reaction Status Date / Time morphine [MORPHINE] Allergy Mild VOMITING Verified 10/01/20 11:35 Review of Systems Review of Systems: Constitutional : No Weight loss, No Fever, No Chills, No Night Sweats, No Fatigue, No Malaise ENT/Mouth : No Hearing loss, No Ear Pain, No Nasal Congestion, No Sinus Pain, No Hoarseness, No sore throat, No Rhinorrhea, No Swallowing Difficulty Eyes: No Eye Pain, No Swelling, No Redness, No Foreign Body, No Discharge, No Vision Changes Cardiovascular : No Chest Pain, No SOB, No Dyspnea on Exertion, No Orthopnea, No Edema, No Palpitations Respiratory : No Cough, No Sputum, No Wheezing, No Smoke Exposure, complaining of dyspnea Gastrointestinal : No Nausea, No Vomiting, No Diarrhea, No Constipation, No abdominal Pain, No Hematochezia, No Melena Genitourinary : no irregular bleeding, No Dysuria, No Urinary Frequency, No Hematuria, No Urinary Incontinence, No Urgency, No Flank Pain, No Urinary Flow Changes, No Hesitancy Musculoskeletal : No joint pain, No Myalgias, No Joint Swelling Skin : No Skin Lesions, No rash Neuro : No Weakness, No Numbness, No Paresthesias, No Loss of Consciousness, No Dizziness, No Headache Psych : No Anxiety/Panic, No Depression, No SI/HI/AH/VH, No Social Issues, Heme/Lymph: No Bruising, No Bleeding,No Lymphadenopathy Endocrine : No Polyuria, No Polydipsia, No Temperature Intolerance PMF Past Medical History Medical History Asthma Bronchiectasis Cocaine abuse COPD (chronic obstructive pulmonary disease) COVID-19 virus infection Latent tuberculosis Mycobacteria, atypical Pneumonia Respiratory failure with hypoxia and hypercapnia Family History Family History Other Family history non-contributory HTN (hypertension) Social History Social History Household Members: Family Housing: House Alcohol intake: former Smoking Status: Former smoker Second Hand Smoke Exposure: No Substance Use Type: Crack/Cocaine Advance Directives: No service: No Current occupational status: unemployed and retired Physical Exam Vital Signs: Vital Signs: Last Vital Signs Temp 98.6 F 10/15/20 05:48 Pulse 128 H 10/15/20 05:48 Resp 20 10/15/20 05:48 BP 101/57 L 10/15/20 05:48 Pulse Ox 94 10/15/20 05:48 Body Mass Index 21.2 Course Course Course Narrative: Patient insists that his oxygen saturation dropped to 82% while he was on 2 L. patient's blood pressure in the high 90s. Patient likely having another COPD exacerbation. Patient received 125 mg of Solu-Medrol prior to arrival and gave himself a nebulization treatment before EMS arrived. Patient's oxygen saturation is 96% on his usual 2 L, however he remains tachycardic in the 130s. Patient receiving Zosyn and IV fluids. I discussed the patient with the hospitalist, patient being admitted Patient's white blood cell count likely secondary to steroid use at home, patient does not have fever, lactic acid 1.6. Sepsis is not suspected. MDM - SOB/Dyspnea Lab Data Result diagrams: 10/15/20 04:09 10/15/20 04:09 Labs: Lab Results 10/15/20 10/15/20 10/15/20 Range/Units 04:09 04:09 04:09 WBC 25.0 H (4.8-10.8) X10*3/uL RBC 3.50 L (4.60-5.80) X10*6/uL Hgb 9.9 L (14.0-18.0) g/dl Hct 31.7 L (42-52) % MCV 90.6 (80-98) fL MCH 28.3 (27.0-33.0) pg MCHC 31.2 (31.0-36.0) g/dl RDW 18.8 H (11.0-16.0) % Plt Count 698 H (160-400) X10*3/uL MPV 8.9 L (9.4-12.4) fL Immature Gran % (Auto) 2.6 H (0.0-0.4) % Neut % (Auto) 72.2 (45-73) % Lymph % (Auto) 13.9 L (20-40) % [place] % (Auto) 10.1 (2-11) % Eos % (Auto) 1.0 (0-4) % Baso % (Auto) 0.2 (0-2) % Lymph # (Auto) 3.5 (1.2-4.9) X10*3/uL [place] # (Auto) 2.5 H (0.1-1.2) X10*3/uL Eos # (Auto) 0.2 (0.0-0.4) X10*3/uL Baso # (Auto) 0.1 (0.0-0.2) X10*3/uL Abs Immat Gran (auto) 0.64 H (0.00-0.03) X10*3/uL Absolute Neuts (auto) 18.1 H (2.0-8.3) X10*3/uL Absolute Nucleated RBC 0.000 (0.0-0.012) X10*3/uL Nucleated RBC % (auto) 0.0 (0.0-0.2) /100WBC Smear Tech's Comments VERIFIED Hold Blue Top SEE NOTE VBG pH (7.32-7.43) VBG pCO2 mmHg VBG pO2 mmHg VBG HCO3 mmol/L VBG O2 Saturation % VBG Base Excess mmol/L Sodium 137 (135-145) mmol/L Potassium 4.4 (3.3-5.1) mmol/L Chloride 96 (96-108) mmol/L Carbon Dioxide 32 H (22-29) mmol/L Anion Gap 13 (12-20) BUN 16 D (9-16) mg/dL Creatinine 0.66 (0.5-1.4) mg/dL Estim Creat Clear Calc 98.8 Estimated GFR > 60 Random Glucose 129 H (60-115) mg/dL Lactic Acid (0.5-2.0) mmol/L Calcium 8.0 L (8.4-10.2) mg/dL Troponin I High Sens (<3.5-35.0) ng/L B-Natriuretic Peptide (<100) pg/mL Urine Color Urine Appearance Urine pH (5.0-8.0) Ur Specific [place] (1.005-1.025) Urine Protein (NEG-TRACE) MG/DL Urine Glucose (UA) (NEG) MG/DL Urine Ketones (NEG) MG/DL Urine Blood (NEG) Urine Nitrite (NEG) Ur Leukocyte Esterase (NEG) Coronavirus (PCR) (Negative) Influenza Type A (PCR) (Negative) Influenza Type B (PCR) (Negative) RSV RNA Qual (PCR) (Negative) 10/15/20 10/15/20 10/15/20 Range/Units 04:09 04:14 04:15 WBC (4.8-10.8) X10*3/uL RBC (4.60-5.80) X10*6/uL Hgb (14.0-18.0) g/dl Hct (42-52) % MCV (80-98) fL MCH (27.0-33.0) pg MCHC (31.0-36.0) g/dl RDW (11.0-16.0) % Plt Count (160-400) X10*3/uL MPV (9.4-12.4) fL Immature Gran % (Auto) (0.0-0.4) % Neut % (Auto) (45-73) % Lymph % (Auto) (20-40) % [place] % (Auto) (2-11) % Eos % (Auto) (0-4) % Baso % (Auto) (0-2) % Lymph # (Auto) (1.2-4.9) X10*3/uL [place] # (Auto) (0.1-1.2) X10*3/uL Eos # (Auto) (0.0-0.4) X10*3/uL Baso # (Auto) (0.0-0.2) X10*3/uL Abs Immat Gran (auto) (0.00-0.03) X10*3/uL Absolute Neuts (auto) (2.0-8.3) X10*3/uL Absolute Nucleated RBC (0.0-0.012) X10*3/uL Nucleated RBC % (auto) (0.0-0.2) /100WBC Smear Tech's Comments Hold Blue Top VBG pH (7.32-7.43) VBG pCO2 mmHg VBG pO2 mmHg VBG HCO3 mmol/L VBG O2 Saturation % VBG Base Excess mmol/L Sodium (135-145) mmol/L Potassium (3.3-5.1) mmol/L Chloride (96-108) mmol/L Carbon Dioxide (22-29) mmol/L Anion Gap (12-20) BUN (9-16) mg/dL Creatinine (0.5-1.4) mg/dL Estim Creat Clear Calc Estimated GFR Random Glucose (60-115) mg/dL Lactic Acid 1.6 (0.5-2.0) mmol/L Calcium (8.4-10.2) mg/dL Troponin I High Sens < 3.5 (<3.5-35.0) ng/L B-Natriuretic Peptide 11 (<100) pg/mL Urine Color Urine Appearance Urine pH (5.0-8.0) Ur Specific [place] (1.005-1.025) Urine Protein (NEG-TRACE) MG/DL Urine Glucose (UA) (NEG) MG/DL Urine Ketones (NEG) MG/DL Urine Blood (NEG) Urine Nitrite (NEG) Ur Leukocyte Esterase (NEG) Coronavirus (PCR) POSITIVE A (Negative) Influenza Type A (PCR) NEGATIVE (Negative) Influenza Type B (PCR) NEGATIVE (Negative) RSV RNA Qual (PCR) NEGATIVE (Negative) 10/15/20 10/15/20 Range/Units 04:20 06:00 WBC (4.8-10.8) X10*3/uL RBC (4.60-5.80) X10*6/uL Hgb (14.0-18.0) g/dl Hct (42-52) % MCV (80-98) fL MCH (27.0-33.0) pg MCHC (31.0-36.0) g/dl RDW (11.0-16.0) % Plt Count (160-400) X10*3/uL MPV (9.4-12.4) fL Immature Gran % (Auto) (0.0-0.4) % Neut % (Auto) (45-73) % Lymph % (Auto) (20-40) % [place] % (Auto) (2-11) % Eos % (Auto) (0-4) % Baso % (Auto) (0-2) % Lymph # (Auto) (1.2-4.9) X10*3/uL [place] # (Auto) (0.1-1.2) X10*3/uL Eos # (Auto) (0.0-0.4) X10*3/uL Baso # (Auto) (0.0-0.2) X10*3/uL Abs Immat Gran (auto) (0.00-0.03) X10*3/uL Absolute Neuts (auto) (2.0-8.3) X10*3/uL Absolute Nucleated RBC (0.0-0.012) X10*3/uL Nucleated RBC % (auto) (0.0-0.2) /100WBC Smear Tech's Comments Hold Blue Top VBG pH 7.38 (7.32-7.43) VBG pCO2 46 mmHg VBG pO2 196 mmHg VBG HCO3 27 mmol/L VBG O2 Saturation 99.0 % VBG Base Excess 2.3 mmol/L Sodium (135-145) mmol/L Potassium (3.3-5.1) mmol/L Chloride (96-108) mmol/L Carbon Dioxide (22-29) mmol/L Anion Gap (12-20) BUN (9-16) mg/dL Creatinine (0.5-1.4) mg/dL Estim Creat Clear Calc Estimated GFR Random Glucose (60-115) mg/dL Lactic Acid (0.5-2.0) mmol/L Calcium (8.4-10.2) mg/dL Troponin I High Sens (<3.5-35.0) ng/L B-Natriuretic Peptide (<100) pg/mL Urine Color STRAW Urine Appearance CLEAR Urine pH 6.5 (5.0-8.0) Ur Specific [place] 1.020 (1.005-1.025) Urine Protein NEG (NEG-TRACE) MG/DL Urine Glucose (UA) NEG (NEG) MG/DL Urine Ketones NEG (NEG) MG/DL Urine Blood NEG (NEG) Urine Nitrite NEG (NEG) Ur Leukocyte Esterase NEG (NEG) Coronavirus (PCR) (Negative) Influenza Type A (PCR) (Negative) Influenza Type B (PCR) (Negative) RSV RNA Qual (PCR) (Negative) Imaging Data Chest x-ray: Radiologist's impression: Cardiac leads overlie the chest. Similar appearance of patchy opacities throughout the right lung. No pleural effusion. No pneumothorax. Bullous disease at the apices. The cardiomediastinal silhouette is within normal limits. XR/XR chest 1V IMPRESSION: Similar appearance of patchy opacities throughout the right lung. Emphysema. ECG Data Attestation: I personally reviewed and interpreted this ECG as follows: (Sinus rhythm, heart rate 150, tachycardia. QTC 429, 7 depression or elevation) Discharge Plan Discharge Clinical Impression: COPD (chronic obstructive pulmonary disease) Qualifiers: Chronic bronchitis type: unspecified Patient Disposition: Admitted As Inpatient
--- NOTE | 2020-10-15 04:21 | PC.NURSE ---
CXR at bedside.
[2020-10-15 04:26] LABS: Glucose Urine UA NEG (NEG); Leukocyte Esterase Urine NEG (NEG); Nitrite Urine NEG (NEG); PH 6.5 (5.0-8.0); Urine Blood NEG (NEG); Urine Ketones NEG (NEG); Urine Protein NEG (NEG-TRACE)
[2020-10-15 04:31] LABS: Appearance Urine CLEAR; Color Urine STRAW
[2020-10-15 04:33] LABS: SLIDE REVIEW VERIFIED
[2020-10-15 04:35] LABS: Anion Gap 13 (12-20); Blood Urea Nitrogen 16 mg/dL (9-16); Carbon Dioxide 32 mmol/L (22-29); Chloride 96 mmol/L (96-108); Creatinine Clr Calc Pharmacy 98.8; Estimated Glomerular Filt Rate > 60; Glucose Random 129 mg/dL (60-115); Potassium 4.4 mmol/L (3.3-5.1); Sodium 137 mmol/L (135-145)
[2020-10-15 04:40] LABS: B Type Natriuretic Peptide 11 pg/mL (<100); Troponin-I High Sensitivity < 3.5 ng/L (<3.5-35.0)
[2020-10-15 04:43] LABS: Lactic Acid 1.6 mmol/L (0.5-2.0)
[2020-10-15 05:03] LABS: Influenza A PCR NEGATIVE (Negative); Influenza B PCR NEGATIVE (Negative); Resp Syncy Virus RNA Qual PCR NEGATIVE (Negative)
[2020-10-15 05:13] LABS: SARS COV2 PCR INHOUSE POSITIVE (Negative)
[2020-10-15 06:10] LABS: HCO3 VBG 27 mmol/L; PCO2 VBG 46 mmHg; PO2 VBG 196 mmHg; pH VBG 7.38 (7.32-7.43)
[2020-10-15 06:11] LABS: Base Excess VBG 2.3 mmol/L
[2020-10-15] MEDS: 0.9 % Sodium Chloride 1,000 ML 999 ML IVCONT ×2 (06:19→06:55)
[2020-10-15] MEDS: Piperacillin Sodium/Tazobactam 3.375 GM in 0.9 % Sodium Chloride 50 ML IV (06:19)
[2020-10-15 06:46] LABS: Procalcitonin 0.04 ng/mL
[2020-10-15 07:05] LABS: Glucose, Whole Blood 137 mg/dL (60-115)
--- NOTE | 2020-10-15 10:54 | P.HPHOSP_ITS ---
History of Present Illness Date of Service: 10/15/20 Chief Complaint: shortness of breath This is a 65-year-old Maldivian-speaking malewith a past medical history of chronic respiratory failure on 2 L O2, COPD and bronchiectasis, history of SYED infection and has been intolerant to treatment in the past, frequent exa cerbations of his respiratory disease, prior COVID 19 infection who is seen in the ED with bankruptcy legal assistant services. Despite using pipeline executive, patient remains a poor historian. He endorses that he came to the hospital for shortness of breath, which he reports he has had for a long time. He reports he was in the ED last week and went home (but fails to mention that he left AMA). He denies any fevers or chills at home. He reports he was using his Oxygen as prescribed. He reports a productive cough, but unclear what kind of sputum. He is currently fixated on getting some coffee. He does report that he is willing to stay in the hospital for admission. Upon further chart review -- noted that patient was in the ED 10/10/2020 at which point he was recommended for admission, but decided to leave AMA. He was also positive for COVID-19 (first positive test 09/03/20). Tested negative several times there after and now positive again. Pt denies any known COVID contacts. He was given steriods, antibiotics, fluids and updrafts in the ED and admission was requested. Review of Systems Review of Systems: General - no fevers or chills HEENT -denies blurred vision, denies headache, denies sore throat Cardiovascular - denies chest pain or palpitations, denies edema Respiratory - +cough, +SOB Gastrointestinal - denies abdominal pain, nausea, vomiting, diarrhea - denies flank pain, denies dysuria, denies frequency or urgency Musculoskeletal - denies back pain, denies hip pain, denies knee pain, denies shoulder pain Neurological - denies any focal weakness or numbness Skin, denies any bruising or redness Psychiatric - denies any suicidal ideation, hallucinations, homicidal ideation Endocrinology - denies intolerance to hot / cold temperatures PMFSH Medical History Asthma Bronchiectasis Cocaine abuse COPD (chronic obstructive pulmonary disease) COVID-19 virus infection Latent tuberculosis Mycobacteria, atypical Pneumonia Respiratory failure with hypoxia and hypercapnia Family History Other Family history non-contributory HTN (hypertension) Social History Household Members: Family Housing: House Alcohol intake: former Smoking Status: Former smoker Second Hand Smoke Exposure: No Substance Use Type: Crack/Cocaine Advance Directives: No service: No Current occupational status: unemployed and retired Meds Allergies Allergy/AdvReac Type Severity Reaction Status Date / Time morphine [MORPHINE] Allergy Mild VOMITING Verified 10/01/20 11:35 Active Medications: Current Medications Generic Name Dose Route Start Last Admin Trade Name Freq PRN Reason Stop Dose Admin Acetaminophen 650 mg 10/15/20 10:51 Acetaminophen 325 Mg Tablet PO Q6H PRN Pain, Mild (Pain Scale 1-3) Albuterol/Ipratropium 3 ml 10/15/20 14:00 Albuterol/Iprat 2.5/0.5mg 3 Ml Ampul.Neb INHALE RQ6H WHILE AWAKE [facility] Enoxaparin Sodium 40 mg 10/15/20 10:51 Enoxaparin Sodium 40 Mg/0.4 Ml Syringe SUBCUT Q24H [facility] Piperacillin Sod/Tazobactam 100 mls @ 200 mls/hr 10/15/20 10:51 Sod 4.5 gm/ Sodium Chloride IV Q6H [facility] Methylprednisolone Sodium Succinate 40 mg 10/15/20 10:51 Methylprednisolone Sod Succ/Pf 40 Mg/Ml Vial IVPUSH BID [facility] Pharmacy Consult 1 each 10/15/20 09:10 Consult Rx Perform Med Rec MISCELLANE ONCE PRN Consult order Sodium Chloride 3 ml 10/15/20 16:00 0.9 % Sodium Chloride Flush 3 Ml Syringe IVFLUSH QSHIFT [facility] Home Medications Medication Instructions Recorded Confirmed Last Taken Type Atrovent HFA 2 puff PO QID 06/01/20 10/15/20 Unknown History albuterol sulfate 2.5 mg INHALATION QID PRN 06/01/20 10/15/20 Unknown History aspirin 81 mg PO DAILY 06/01/20 10/15/20 Unknown History atorvastatin 20 mg PO DAILY 06/01/20 10/15/20 Unknown History montelukast 10 mg PO BEDTIME 06/01/20 10/15/20 Unknown History sildenafil [Viagra] 0.5 - 1 tab PO DAILY PRN 06/01/20 10/15/20 Unknown History bupropion HCl 150 mg PO BID 08/05/20 10/15/20 Unknown History ferrous sulfate 325 mg PO DAILY 08/05/20 10/15/20 Unknown History fluticasone propionate 2 spray INTRANASAL DAILY PRN 08/05/20 10/15/20 Unknown History ketoconazole 1 appl TOPICAL 2XW 08/05/20 10/15/20 Unknown History multivitamin 1 tab PO DAILY 08/05/20 10/15/20 Unknown History sennosides [senna] 1 tab PO BEDTIME PRN 08/05/20 10/15/20 Unknown History Incruse Ellipta 1 inh INHALATION DAILY 09/03/20 10/15/20 Unknown History docusate sodium 100 mg PO BID 10/10/20 10/15/20 Unknown History fluticasone furoate-vilanterol 1 inh INHALATION DAILY 10/10/20 10/15/20 Unknown History [Breo Ellipta] gabapentin 300 mg PO TID 10/10/20 10/15/20 Unknown History valsartan 40 mg PO DAILY 10/10/20 10/15/20 Unknown History Physical Exam Vital Signs and Narrative: Vital Signs: Last Vital Signs Temp 98.6 F 10/15/20 05:48 Pulse 78 10/15/20 10:18 Resp 20 10/15/20 10:18 BP 102/52 L 10/15/20 10:18 Pulse Ox 97 10/15/20 10:18 Body Mass Index 21.2 Const: Other: Constitutional - Awake and Alert, No apparent distress, Thin appearing -- chronically sick looking Eyes - PERRLA, EOMI Cardiovascular - S1S2, RRR, No edema Respiratory - Diminished sounds, trace scattered wheezing Gastrointestinal - NT / ND; +BS; No rebound or guarding - No CVA tenderness Extremities - no calf tenderness bilaterally, no swelling Musculoskeletal - Normal inspection, normal ROM Skin - Warm/Dry Neurological - Alert & oriented x3, No focal deficit Psychological - Appropriate affect Results Labs CBC and Chem 7: 10/15/20 04:09 10/15/20 04:09 Labs: Laboratory Results - last 24 hr 10/15/20 10/15/20 10/15/20 04:04 04:09 04:09 MCV 90.6 MCH 28.3 MCHC 31.2 RDW 18.8 H Plt Count 698 H MPV 8.9 L Immature Gran % (Auto) 2.6 H Neut % (Auto) 72.2 Lymph % (Auto) 13.9 L [place] % (Auto) 10.1 Eos % (Auto) 1.0 Baso % (Auto) 0.2 Lymph # (Auto) 3.5 [place] # (Auto) 2.5 H Eos # (Auto) 0.2 Baso # (Auto) 0.1 Abs Immat Gran (auto) 0.64 H Absolute Neuts (auto) 18.1 H Absolute Nucleated RBC 0.000 Nucleated RBC % (auto) 0.0 Smear Tech's Comments VERIFIED Hold Blue Top SEE NOTE VBG pH VBG pCO2 VBG pO2 VBG HCO3 VBG O2 Saturation VBG Base Excess Anion Gap Estim Creat Clear Calc Estimated GFR POC Glucose 137 H Random Glucose Lactic Acid Calcium Troponin I High Sens B-Natriuretic Peptide Procalcitonin Urine Color Urine Appearance Urine pH Ur Specific [place] Urine Protein Urine Glucose (UA) Urine Ketones Urine Blood Urine Nitrite Ur Leukocyte Esterase Coronavirus (PCR) Influenza Type A (PCR) Influenza Type B (PCR) RSV RNA Qual (PCR) 10/15/20 10/15/20 10/15/20 04:09 04:09 04:09 MCV MCH MCHC RDW Plt Count MPV Immature Gran % (Auto) Neut % (Auto) Lymph % (Auto) [place] % (Auto) Eos % (Auto) Baso % (Auto) Lymph # (Auto) [place] # (Auto) Eos # (Auto) Baso # (Auto) Abs Immat Gran (auto) Absolute Neuts (auto) Absolute Nucleated RBC Nucleated RBC % (auto) Smear Tech's Comments Hold Blue Top VBG pH VBG pCO2 VBG pO2 VBG HCO3 VBG O2 Saturation VBG Base Excess Anion Gap 13 Estim Creat Clear Calc 98.8 Estimated GFR > 60 POC Glucose Random Glucose 129 H Lactic Acid Calcium 8.0 L Troponin I High Sens < 3.5 B-Natriuretic Peptide 11 Procalcitonin 0.04 Urine Color Urine Appearance Urine pH Ur Specific [place] Urine Protein Urine Glucose (UA) Urine Ketones Urine Blood Urine Nitrite Ur Leukocyte Esterase Coronavirus (PCR) Influenza Type A (PCR) Influenza Type B (PCR) RSV RNA Qual (PCR) 10/15/20 10/15/20 10/15/20 04:14 04:15 04:20 MCV MCH MCHC RDW Plt Count MPV Immature Gran % (Auto) Neut % (Auto) Lymph % (Auto) [place] % (Auto) Eos % (Auto) Baso % (Auto) Lymph # (Auto) [place] # (Auto) Eos # (Auto) Baso # (Auto) Abs Immat Gran (auto) Absolute Neuts (auto) Absolute Nucleated RBC Nucleated RBC % (auto) Smear Tech's Comments Hold Blue Top VBG pH VBG pCO2 VBG pO2 VBG HCO3 VBG O2 Saturation VBG Base Excess Anion Gap Estim Creat Clear Calc Estimated GFR POC Glucose Random Glucose Lactic Acid 1.6 Calcium Troponin I High Sens B-Natriuretic Peptide Procalcitonin Urine Color STRAW Urine Appearance CLEAR Urine pH 6.5 Ur Specific [place] 1.020 Urine Protein NEG Urine Glucose (UA) NEG Urine Ketones NEG Urine Blood NEG Urine Nitrite NEG Ur Leukocyte Esterase NEG Coronavirus (PCR) POSITIVE A Influenza Type A (PCR) NEGATIVE Influenza Type B (PCR) NEGATIVE RSV RNA Qual (PCR) NEGATIVE 10/15/20 06:00 MCV MCH MCHC RDW Plt Count MPV Immature Gran % (Auto) Neut % (Auto) Lymph % (Auto) [place] % (Auto) Eos % (Auto) Baso % (Auto) Lymph # (Auto) [place] # (Auto) Eos # (Auto) Baso # (Auto) Abs Immat Gran (auto) Absolute Neuts (auto) Absolute Nucleated RBC Nucleated RBC % (auto) Smear Tech's Comments Hold Blue Top VBG pH 7.38 VBG pCO2 46 VBG pO2 196 VBG HCO3 27 VBG O2 Saturation 99.0 VBG Base Excess 2.3 Anion Gap Estim Creat Clear Calc Estimated GFR POC Glucose Random Glucose Lactic Acid Calcium Troponin I High Sens B-Natriuretic Peptide Procalcitonin Urine Color Urine Appearance Urine pH Ur Specific [place] Urine Protein Urine Glucose (UA) Urine Ketones Urine Blood Urine Nitrite Ur Leukocyte Esterase Coronavirus (PCR) Influenza Type A (PCR) Influenza Type B (PCR) RSV RNA Qual (PCR) Imaging Radiologist's Impressions: Impressions Chest X-Ray 10/15/20 04:03 IMPRESSION: Similar appearance of patchy opacities throughout the right lung. Emphysema. Assessment and Plan (1) COPD (chronic obstructive pulmonary disease): Qualifiers: Chronic bronchitis type: unspecified Status: Acute (2) Bronchiectasis: Status: Acute This is a 65 yo M with a PMH of Chronic Resp Failure on 2L, COPD/bronchiectasis, SYED - reportedly intolerant to Rx (see pulm clinic note), COVID-19 in August who presents with shortnress of breath and is admitted for further treatment. 1. Acute COPD Exacerbation causing acute on chornic resp failure with hypoxia (O2 saturation 88 upon arrival on 6L) in the setting of known SYED/Bronchiatasis IV Solu-Med[place]ena, [place] Will cover empirically given his history with broad spectrum antibiotics - zosyn/doxy He does not have severe sepsis 2. COVID positive Check IgG Isolation per hospital policy doubt re-infection 3. Leukocytosis possible infection, but has been on steriods at home, suspect secondary to this monitor continue other chronic meds Full Code DVT pptx, Lovenox
[2020-10-15] MEDS: Piperacillin Sodium/Tazobactam 4.5 GM in 0.9 % Sodium Chloride 100 ML IV ×3 (11:08→21:57)
[2020-10-15] MEDS: Enoxaparin Sodium 40 MG/0.4 ML SYRINGE SUBCUT (11:08)
[2020-10-15] MEDS: Aspirin Enteric Coated 81 MG TABLET.DR PO (12:04)
[2020-10-15] MEDS: Doxycycline Hyclate 100 MG in 0.9 % Sodium Chloride 250 ML 166.67 MG IV ×2 (12:05→23:38)
[2020-10-15] MEDS: acetaZOLAMIDE 250 MG TABLET PO (12:05)
[2020-10-15] MEDS: Atorvastatin Calcium 20 MG TABLET PO (12:05)
--- NOTE | 2020-10-15 15:06 | PC.NURSE ---
Patient new admit from ED. Arrived on [facility] at approximately 1430. Utilized german interpretor to communicate. Patient alert and oriented with personal clothing at bedside. Vitals stable. Family updated. Will continue to monitor.
[2020-10-15] MEDS: Gabapentin 300 MG CAPSULE PO ×2 (17:19→21:58)
[2020-10-15] MEDS: 0.9 % Sodium Chloride Flush 3 ML SYRINGE IVFLUSH ×2 (17:19→21:58)
[2020-10-15] MEDS: Montelukast Sodium 10 MG TABLET PO (21:57)
[2020-10-15] MEDS: Acetaminophen 325 MG TABLET 650 MG PO (21:57)
[2020-10-15] MEDS: Docusate Sodium 100 MG CAPSULE PO (21:58)
[2020-10-15] MEDS: Magnesium Hydrox/Alum Hydrox 30 ML ORAL.SUSP 15 ML PO (22:37)
[2020-10-16] VITALS (7 sets, daily range): BP systolic 94–115; BP diastolic 54–65; PULSE 89–103; RESP 18–20; TEMP 36.2–37; O2SAT 95–100
[2020-10-16] MEDS: Piperacillin Sodium/Tazobactam 4.5 GM in 0.9 % Sodium Chloride 100 ML IV ×4 (04:59→23:07)
[2020-10-16] MEDS: Magnesium Hydrox/Alum Hydrox 30 ML ORAL.SUSP 15 ML PO ×2 (05:06→10:29)
[2020-10-16 07:08] LABS: Basophils Percent Auto 0.1 % (0-2); Hematocrit 27.9 % (42-52); Hemoglobin 8.7 g/dl (14.0-18.0); Imm Gran Abs Auto 0.13 X10*3/uL (0.00-0.03); Imm Gran Pct Auto 0.7 % (0.0-0.4); Lymphocytes Absolute Auto 0.7 X10*3/uL (1.2-4.9); Lymphocytes Percent Auto 3.9 % (20-40); MANUAL DIFF FLAG SCAN; Mean Corpuscular HGB Conc 31.2 g/dl (31.0-36.0); Mean Corpuscular Hemoglobin 28.4 pg (27.0-33.0); Mean Corpuscular Volume 91.2 fL (80-98); Mean Platelet Volume 9.1 fL (9.4-12.4); Monocytes Absolute Auto 0.7 X10*3/uL (0.1-1.2); Monocytes Percent Auto 3.6 % (2-11); Neutrophils Absolute Auto 16.4 X10*3/uL (2.0-8.3); Neutrophils Percent Auto 91.7 % (45-73); Platelet Count 669 X10*3/uL (160-400); Red Blood Count 3.06 X10*6/uL (4.60-5.80); Red Cell Distribution Width 19.1 % (11.0-16.0); SCAN SMEAR FLAG 1; White Blood Count 17.9 X10*3/uL (4.8-10.8)
[2020-10-16 07:45] LABS: Anion Gap 10 (12-20); Blood Urea Nitrogen 17 mg/dL (9-16); Calcium 8.4 mg/dL (8.4-10.2); Carbon Dioxide 32 mmol/L (22-29); Chloride 100 mmol/L (96-108); Creatinine Clr Calc Pharmacy 106.9; Estimated Glomerular Filt Rate > 60; Glucose Random 210 mg/dL (60-115); Potassium 4.5 mmol/L (3.3-5.1); Sodium 137 mmol/L (135-145)
[2020-10-16 07:51] LABS: SLIDE REVIEW VERIFIED
[2020-10-16] MEDS: Fluticasone/Vilanterol 200/25 BLST.W.DEV 1 PUFF INHALE (07:54)
[2020-10-16] MEDS: Atorvastatin Calcium 20 MG TABLET PO (08:30)
[2020-10-16] MEDS: Gabapentin 300 MG CAPSULE PO ×3 (08:31→20:34)
[2020-10-16] MEDS: Aspirin Enteric Coated 81 MG TABLET.DR PO (08:32)
[2020-10-16] MEDS: Docusate Sodium 100 MG CAPSULE PO ×2 (08:32→20:34)
[2020-10-16] MEDS: buPROPion HCl XL 300 MG TAB.ER.24H PO (08:32)
[2020-10-16] MEDS: acetaZOLAMIDE 250 MG TABLET PO (08:32)
[2020-10-16] MEDS: 0.9 % Sodium Chloride Flush 3 ML SYRINGE IVFLUSH ×3 (08:34→23:42)
[2020-10-16 08:39] LABS: SARS COV2 IgG Positive (Negative)
--- NOTE | 2020-10-16 09:28 | MHC.CM.PN ---
with interpertor spoke with pt who explains that he had no servcies prior to admisison he does not anticapate neding servcies when dcd he has his own transporation home
[2020-10-16] MEDS: Enoxaparin Sodium 40 MG/0.4 ML SYRINGE SUBCUT (11:57)
[2020-10-16] MEDS: Doxycycline Hyclate 100 MG in 0.9 % Sodium Chloride 250 ML 166.67 MG IV ×2 (12:42→23:42)
--- NOTE | 2020-10-16 15:37 | P.PNIM_ITS ---
Subjective Subjective Date of Service: 10/16/20 Interval History: seen and examined seen with Vietnamese speaking aide on the floor very hard to redirect and getting agitated regarding this heart burn reports breathing a bit easier denies chest pain ROS General - no fevers or chills Cardiovascular - no chest pain Respiratory - +SOB Abdominal- no abdominal pain, nausea, vomiting, diarrhea Physical Exam Vital Signs: Vital Signs: Last Vital Signs Temp 97.6 F 10/16/20 15:09 Pulse 95 10/16/20 15:09 Resp 20 10/16/20 15:09 BP 108/58 L 10/16/20 15:09 Pulse Ox 100 10/16/20 15:09 Body Mass Index 21.2 Const: Other: General - chronically ill-looking Cardiovascular - regular rate and rhythm, S1-S2 Lungs - diminished breath sounds, trace expiratory wheezing, no respiratory distress Abdomen - soft, nontender, no rebound or guarding Extremities - no edema bilaterally Neuro - awake and alert, no focal deficits Objective Data Current Medications Generic Name Dose Route Start Last Admin Trade Name Jesus Alberto PRN Reason Stop Dose Admin Acetaminophen 650 mg 10/15/20 10:51 10/15/20 21:57 Acetaminophen 325 Mg Tablet PO 650 mg Q6H PRN Administration Pain, Mild (Pain Scale 1-3) Acetazolamide 250 mg 10/15/20 11:30 10/16/20 08:32 Acetazolamide 250 Mg Tablet PO 250 mg DAILY ALFONSO Administration Al Hydroxide/Mg Hydroxide 15 ml 10/15/20 22:20 10/16/20 10:29 Magnesium Hydrox/Alum Hydrox 30 Ml Oral.Susp PO 15 ml Q6H PRN Administration Heartburn Albuterol Sulfate 2 puff 10/15/20 15:06 Albuterol Sulfate 90 Mcg 8 Gm Inhaler INHALE RQ4H PRN Shortness of Breath Aspirin 81 mg 10/15/20 11:30 10/16/20 08:32 Aspirin Enteric Coated 81 Mg Tablet.Dr PO 81 mg DAILY ALFONSO Administration Atorvastatin Calcium 20 mg 10/15/20 11:30 10/16/20 08:30 Atorvastatin Calcium 20 Mg Tablet PO 20 mg DAILY ALFONSO Administration Bupropion HCl 300 mg 10/16/20 09:00 10/16/20 08:32 Bupropion Hcl Xl 300 Mg Tab.Er.24h PO 300 mg DAILY ALFONSO Administration Docusate Sodium 100 mg 10/15/20 21:00 10/16/20 08:32 Docusate Sodium 100 Mg Capsule PO 100 mg BID ALFONSO Administration Enoxaparin Sodium 40 mg 10/15/20 10:51 10/16/20 11:57 Enoxaparin Sodium 40 Mg/0.4 Ml Syringe SUBCUT 40 mg Q24H ALFONSO Administration Fluticasone/Vilanterol 1 puff 10/16/20 09:00 10/16/20 07:54 Fluticasone/Vilanterol 200/25 Blst.W.Dev INHALE 1 puff DAILY ALFONSO Administration Gabapentin 300 mg 10/15/20 15:00 10/16/20 15:09 Gabapentin 300 Mg Capsule PO 300 mg TID ALFONSO Administration Piperacillin Sod/Tazobactam 100 mls @ 200 mls/hr 10/15/20 10:51 10/16/20 12:54 Sod 4.5 gm/ Sodium Chloride IV Infused Q6H ALFONSO Infusion Doxycycline Hyclate 100 mg/ 250 mls @ 166.67 mls/hr 10/15/20 11:30 10/16/20 14:57 Sodium Chloride IV Infused Q12H ALFONSO Infusion Methylprednisolone Sodium Succinate 40 mg 10/15/20 10:51 10/16/20 08:32 Methylprednisolone Sod Succ/Pf 40 Mg/Ml Vial IVPUSH 40 mg BID [facility] Administration Montelukast Sodium 10 mg 10/15/20 21:00 10/15/20 21:57 Montelukast Sodium 10 Mg Tablet PO 10 mg BEDTIME ALFONSO Administration Omeprazole 20 mg 10/16/20 15:45 Omeprazole 20 Mg Capsule. PO DAILY@0630 [facility] Pharmacy Consult 1 each 10/15/20 09:10 Consult Rx Perform Med Rec MISCELLANE ONCE PRN Consult order Senna 8.6 mg 10/15/20 11:18 Sennosides 8.6 Mg Tablet PO BEDTIME PRN Constipation Sodium Chloride 3 ml 10/15/20 16:00 10/16/20 15:09 0.9 % Sodium Chloride Flush 3 Ml Syringe IVFLUSH 3 ml QSHIFT [facility] Administration Labs CBC & Chem 7: 10/16/20 06:48 10/16/20 06:48 Microbiology Microbiology Results: Microbiology 10/15/20 04:15 Blood - Venous Blood Culture - Preliminary No growth after 24 hours. 10/15/20 04:15 Blood - Venous Blood Culture - Preliminary No growth after 24 hours. Assessment and Plan (1) COPD (chronic obstructive pulmonary disease): Status: Acute (2) Bronchiectasis: Status: Acute Assessment and Plan: This is a 65 yo M with a PMH of Chronic Resp Failure on 2L, COPD/bronchiectasis, SYED - reportedly intolerant to Rx (see pulm clinic note), COVID-19 in August who presents with shortnress of breath and is admitted for further treatment. 1. Acute COPD Exacerbation causing acute on chornic resp failure with hypoxia (O2 saturation 88 upon arrival on 6L) in the setting of known SYED/Bronchiatasis Continue IV steroids today, prednisone starting tomorrow Will cover empirically given his history with broad spectrum antibiotics - zosyn/doxy He does not have severe sepsis 2. COVID PCR positive doubt re-infection; IgG positive Isolation per hospital policy 3. Leukocytosis possible infection, but has been on steriods at home, suspect secondary to this monitor 4. GERD PPI 5. Anemia no evidence of blood loss at this time; diluation from IVF recheck h/h now continue other chronic meds Full Code DVT pptx, Lovenox
[2020-10-16] MEDS: Omeprazole 20 MG CAPSULE.DR PO (16:02)
[2020-10-16 17:13] LABS: Hematocrit 28.5 % (42-52); Hemoglobin 8.8 g/dl (14.0-18.0)
[2020-10-16] MEDS: Montelukast Sodium 10 MG TABLET PO (20:34)
[2020-10-17] VITALS (7 sets, daily range): BP systolic 88–115; BP diastolic 52–64; PULSE 90–118; RESP 17–20; TEMP 36.3–37.1; O2SAT 92–96
[2020-10-17] MEDS: Omeprazole 20 MG CAPSULE.DR PO (05:12)
[2020-10-17] MEDS: Piperacillin Sodium/Tazobactam 4.5 GM in 0.9 % Sodium Chloride 100 ML IV ×4 (05:12→23:24)
[2020-10-17] MEDS: 0.9 % Sodium Chloride Flush 3 ML SYRINGE IVFLUSH ×3 (07:47→21:36)
[2020-10-17] MEDS: predniSONE 20 MG TABLET 40 MG PO (07:48)
[2020-10-17] MEDS: acetaZOLAMIDE 250 MG TABLET PO (07:48)
[2020-10-17] MEDS: Docusate Sodium 100 MG CAPSULE PO ×2 (07:48→21:36)
[2020-10-17] MEDS: Atorvastatin Calcium 20 MG TABLET PO (07:48)
[2020-10-17] MEDS: Gabapentin 300 MG CAPSULE PO ×3 (07:48→21:36)
[2020-10-17] MEDS: Aspirin Enteric Coated 81 MG TABLET.DR PO (07:48)
[2020-10-17] MEDS: buPROPion HCl XL 300 MG TAB.ER.24H PO (07:48)
[2020-10-17] MEDS: Fluticasone/Vilanterol 200/25 BLST.W.DEV 1 PUFF INHALE (08:13)
[2020-10-17 09:05] LABS: Hematocrit 29.2 % (42-52); Hemoglobin 9.1 g/dl (14.0-18.0); Mean Corpuscular HGB Conc 31.2 g/dl (31.0-36.0); Mean Corpuscular Hemoglobin 28.3 pg (27.0-33.0); Mean Platelet Volume 9.1 fL (9.4-12.4); NRBC Pct Auto 0.2 /100WBC (0.0-0.2); Platelet Count 779 X10*3/uL (160-400); Red Blood Count 3.21 X10*6/uL (4.60-5.80); Red Cell Distribution Width 19.3 % (11.0-16.0); White Blood Count 21.7 X10*3/uL (4.8-10.8)
--- NOTE | 2020-10-17 10:29 | HO.PM.IMPN ---
Subjective Subjective Date of Service: 10/17/20 Interval History: seen and examined seen with Cymraes speaking aide on the floor reports feeling better coughing less and breathing easier ROS General - no fevers or chills Cardiovascular - no chest pain Respiratory - +SOB Abdominal- no abdominal pain, nausea, vomiting, diarrhea Physical Exam Vital Signs: Vital Signs: Last Vital Signs Temp 97.6 F 10/17/20 07:41 Pulse 101 H 10/17/20 07:41 Resp 18 10/17/20 07:41 BP 106/61 10/17/20 07:41 Pulse Ox 96 10/17/20 07:41 Body Mass Index 21.2 Const: Other: General - chronically ill-looking Cardiovascular - regular rate and rhythm, S1-S2 Lungs - diminished breath sounds, trace expiratory wheezing, no respiratory distress Abdomen - soft, nontender, no rebound or guarding Extremities - no edema bilaterally Neuro - awake and alert, no focal deficits Objective Data Current Medications Generic Name Dose Route Start Last Admin Trade Name Freq PRN Reason Stop Dose Admin Acetaminophen 650 mg 10/15/20 10:51 10/15/20 21:57 Acetaminophen 325 Mg Tablet PO 650 mg Q6H PRN Administration Pain, Mild (Pain Scale 1-3) Acetazolamide 250 mg 10/15/20 11:30 10/17/20 07:48 Acetazolamide 250 Mg Tablet PO 250 mg DAILY ALFONSO Administration Al Hydroxide/Mg Hydroxide 15 ml 10/15/20 22:20 10/16/20 10:29 Magnesium Hydrox/Alum Hydrox 30 Ml Oral.Susp PO 15 ml Q6H PRN Administration Heartburn Albuterol Sulfate 2 puff 10/15/20 15:06 Albuterol Sulfate 90 Mcg 8 Gm Inhaler INHALE RQ4H PRN Shortness of Breath Aspirin 81 mg 10/15/20 11:30 10/17/20 07:48 Aspirin Enteric Coated 81 Mg Tablet.Dr PO 81 mg DAILY ALFONSO Administration Atorvastatin Calcium 20 mg 10/15/20 11:30 10/17/20 07:48 Atorvastatin Calcium 20 Mg Tablet PO 20 mg DAILY ALFONSO Administration Bupropion HCl 300 mg 10/16/20 09:00 10/17/20 07:48 Bupropion Hcl Xl 300 Mg Tab.Er.24h PO 300 mg DAILY ALFONSO Administration Docusate Sodium 100 mg 10/15/20 21:00 10/17/20 07:48 Docusate Sodium 100 Mg Capsule PO 100 mg BID ALFONSO Administration Enoxaparin Sodium 40 mg 10/15/20 10:51 10/16/20 11:57 Enoxaparin Sodium 40 Mg/0.4 Ml Syringe SUBCUT 40 mg Q24H ALFONSO Administration Fluticasone/Vilanterol 1 puff 10/16/20 09:00 10/17/20 08:13 Fluticasone/Vilanterol 200/25 Blst.W.Dev INHALE 1 puff DAILY ALFONSO Administration Gabapentin 300 mg 10/15/20 15:00 10/17/20 07:48 Gabapentin 300 Mg Capsule PO 300 mg TID ALFONSO Administration Piperacillin Sod/Tazobactam 100 mls @ 200 mls/hr 10/15/20 10:51 10/17/20 05:52 Sod 4.5 gm/ Sodium Chloride IV Infused Q6H ALFONSO Infusion Doxycycline Hyclate 100 mg/ 250 mls @ 166.67 mls/hr 10/15/20 11:30 10/17/20 01:38 Sodium Chloride IV Infused Q12H ALFONSO Infusion Montelukast Sodium 10 mg 10/15/20 21:00 10/16/20 20:34 Montelukast Sodium 10 Mg Tablet PO 10 mg BEDTIME ALFONSO Administration Omeprazole 20 mg 10/16/20 15:45 10/17/20 05:12 Omeprazole 20 Mg Capsule. PO 20 mg DAILY@0630 [facility] Administration Pharmacy Consult 1 each 10/15/20 09:10 Consult Rx Perform Med Rec MISCELLANE ONCE PRN Consult order Prednisone 40 mg 10/17/20 09:00 10/17/20 07:48 Prednisone 20 Mg Tablet PO 40 mg DAILY ALFONSO Administration Senna 8.6 mg 10/15/20 11:18 Sennosides 8.6 Mg Tablet PO BEDTIME PRN Constipation Sodium Chloride 3 ml 10/15/20 16:00 10/17/20 07:47 0.9 % Sodium Chloride Flush 3 Ml Syringe IVFLUSH 3 ml QSHIFT [facility] Administration Labs CBC & Chem 7: 10/17/20 08:32 10/16/20 06:48 Microbiology Microbiology Results: Microbiology 10/15/20 04:15 Blood - Venous Blood Culture - Preliminary No growth after 48 hours. 10/15/20 04:15 Blood - Venous Blood Culture - Preliminary No growth after 48 hours. Assessment and Plan (1) COPD (chronic obstructive pulmonary disease): Status: Acute (2) Bronchiectasis: Status: Acute Assessment and Plan: This is a 65 yo M with a PMH of Chronic Resp Failure on 2L, COPD/bronchiectasis, SYED - reportedly intolerant to Rx (see pulm clinic note), COVID-19 in August who presents with shortnress of breath and is admitted for further treatment. 1. Acute COPD Exacerbation causing acute on chornic resp failure with hypoxia (O2 saturation 88 upon arrival on 6L) on 2L at baseline, remains on 3L -- wean to baseline in the setting of known SYED/Bronchiatasis Prednisone 40mg Zosyn/Doxy for an additional 24 hours and if continues to improve, will change to PO 2. COVID PCR positive doubt re-infection; IgG positive Isolation per hospital policy 3. Leukocytosis increased today suspected from steroids 4. GERD PPI 5. Anemia h/h stable continue other chronic meds Full Code DVT pptx, Lovenox dispo: anticipate home tomorrow. Needs to remain hospitalized for at least 24 more hours in light of his known chronic and severe respiratory disease as to prevent rehospitalization
[2020-10-17] MEDS: Enoxaparin Sodium 40 MG/0.4 ML SYRINGE SUBCUT (11:27)
[2020-10-17] MEDS: Doxycycline Hyclate 100 MG in 0.9 % Sodium Chloride 250 ML 166.67 MG IV ×2 (12:17→23:58)
--- NOTE | 2020-10-17 19:08 | PC.NURSE ---
1645- Pt tachycardic up to 130s. Pt was eating dinner and now sitting up in bed. Pt previous BP 88/52, rechecked and was 100/64. O2 95% 2L, RR 18. Dr. Moses made aware. Per Md monitor for now. Pt has no complaints at this time.
[2020-10-17] MEDS: Montelukast Sodium 10 MG TABLET PO (21:35)
[2020-10-18 03:43] VITALS: BP 123/71; PULSE 84; RESP 18; TEMP 36.4; O2SAT 94
[2020-10-18] MEDS: Piperacillin Sodium/Tazobactam 4.5 GM in 0.9 % Sodium Chloride 100 ML IV (05:09)
[2020-10-18] MEDS: Omeprazole 20 MG CAPSULE.DR PO (05:41)
[2020-10-18 07:50] LABS: Glucose, Whole Blood 101 mg/dL (60-115)
[2020-10-18 08:00] VITALS: BP 116/75; PULSE 122; RESP 18; TEMP 36.4; O2SAT 94
[2020-10-18] MEDS: Fluticasone/Vilanterol 200/25 BLST.W.DEV 1 PUFF INHALE (08:33)
[2020-10-18 08:38] VITALS: PULSE 110; O2SAT 95
[2020-10-18 08:44] LABS: Basophils Percent Auto 0.1 % (0-2); Eosinophils Absolute Auto 0.1 X10*3/uL (0.0-0.4); Eosinophils Percent Auto 0.3 % (0-4); Hematocrit 28.8 % (42-52); Hemoglobin 9.3 g/dl (14.0-18.0); Imm Gran Abs Auto 0.22 X10*3/uL (0.00-0.03); Imm Gran Pct Auto 1.2 % (0.0-0.4); Lymphocytes Absolute Auto 1.5 X10*3/uL (1.2-4.9); Lymphocytes Percent Auto 8.4 % (20-40); MANUAL DIFF FLAG SCAN; Mean Corpuscular HGB Conc 32.3 g/dl (31.0-36.0); Mean Corpuscular Hemoglobin 28.8 pg (27.0-33.0); Mean Corpuscular Volume 89.2 fL (80-98); Mean Platelet Volume 8.9 fL (9.4-12.4); NRBC Pct Auto 0.3 /100WBC (0.0-0.2); Neutrophils Absolute Auto 14.5 X10*3/uL (2.0-8.3); Platelet Count 795 X10*3/uL (160-400); Red Blood Count 3.23 X10*6/uL (4.60-5.80); Red Cell Distribution Width 19.4 % (11.0-16.0); SCAN SMEAR FLAG 1; White Blood Count 18.4 X10*3/uL (4.8-10.8)
[2020-10-18] MEDS: Docusate Sodium 100 MG CAPSULE PO (08:56)
[2020-10-18] MEDS: buPROPion HCl XL 300 MG TAB.ER.24H PO (08:56)
[2020-10-18] MEDS: Aspirin Enteric Coated 81 MG TABLET.DR PO (08:56)
[2020-10-18] MEDS: acetaZOLAMIDE 250 MG TABLET PO (08:56)
[2020-10-18] MEDS: Gabapentin 300 MG CAPSULE PO (08:56)
[2020-10-18] MEDS: Atorvastatin Calcium 20 MG TABLET PO (08:56)
[2020-10-18] MEDS: predniSONE 20 MG TABLET 40 MG PO (08:56)
[2020-10-18] MEDS: 0.9 % Sodium Chloride Flush 3 ML SYRINGE IVFLUSH (08:56)
[2020-10-18 09:05] LABS: SLIDE REVIEW VERIFIED
--- NOTE | 2020-10-18 10:13 | PM.DS ---
DS: Providers Provider Date of Service: 10/18/20 Date of admission: 10/15/20 10:51 Primary care physician: Unknown Physician DS: Diagnosis Discharge Diagnosis (1) Acute and chronic respiratory failure with hypoxia: Status: Acute (2) COPD exacerbation: Status: Acute (3) COVID-19: Status: Acute (4) Leukocytosis: Status: Acute DS: Medications Discharge Medications Home Medications: Home Medications Medication Instructions Recorded Confirmed Atrovent HFA 2 puff PO QID 06/01/20 10/15/20 albuterol sulfate 2.5 mg INHALATION QID PRN 06/01/20 10/15/20 aspirin 81 mg PO DAILY 06/01/20 10/15/20 atorvastatin 20 mg PO DAILY 06/01/20 10/15/20 montelukast 10 mg PO BEDTIME 06/01/20 10/15/20 sildenafil [Viagra] 0.5 - 1 tab PO DAILY PRN 06/01/20 10/15/20 bupropion HCl 150 mg PO BID 08/05/20 10/15/20 ferrous sulfate 325 mg PO DAILY 08/05/20 10/15/20 fluticasone propionate 2 spray INTRANASAL DAILY PRN 08/05/20 10/15/20 ketoconazole 1 appl TOPICAL 2XW 08/05/20 10/15/20 multivitamin 1 tab PO DAILY 08/05/20 10/15/20 sennosides [senna] 1 tab PO BEDTIME PRN 08/05/20 10/15/20 Incruse Ellipta 1 inh INHALATION DAILY 09/03/20 10/15/20 Breo Ellipta 1 inh INHALATION DAILY 10/10/20 10/15/20 docusate sodium 100 mg PO BID 10/10/20 10/15/20 gabapentin 300 mg PO TID 10/10/20 10/15/20 valsartan 40 mg PO DAILY 10/10/20 10/15/20 Previous Rx's Medication Instructions Recorded ipratropium 0.5 mg-albuterol 3 mg 3 ml INHALATION QID 30 Days #360 ml 06/28/20 (2.5 mg base)/3 mL nebulization soln acetazolamide 250 mg PO DAILY #30 tab 09/08/20 amoxicillin-pot clavulanate 1 tab PO BID #14 tab 10/18/20 [Augmentin] doxycycline hyclate 100 mg PO BID 7 Days #14 cap 10/18/20 prednisone 40 mg PO DAILY #10 tab 10/18/20 DS: Summary Hospital Course Hospital Course: Patient presented to the hospital with acute on chronic respiratory failure with hypoxia. This was deemed secondary to COPD exacerbation in the setting of known chronic SYED infection and bronchiectasis. His COVID-19 was also positive, although this was unlikely an infection as his IgG was also positive. (he was treated for COVID in August 2019). He was started on broad-spectrum IV antibiotics and systemic steroids. Over the course of 4 days, his symptoms improved and his oxygen requirements decreased to his baseline. He will be discharged home with 7 more days of antibiotics and 5 more days of oral prednisone. Out of an abundance of caution, he has been instructed to maintain self isolation for another week (for COVID). Time Spent with Patient Time attestation: Total time spent providing and/or coordinating discharge services: Discharge coordination time: Greater than 30 minutes Physical Exam Vital Signs: Vital Signs: Last Vital Signs Temp 97.6 F 10/18/20 08:00 Pulse 122 H 10/18/20 08:00 Resp 18 10/18/20 08:00 BP 116/75 10/18/20 08:00 Pulse Ox 94 10/18/20 08:00 Body Mass Index 21.2 Const: Other: General - chronically ill-looking Cardiovascular - regular rate and rhythm, S1-S2 Lungs - diminished breath sounds, trace expiratory wheezing, no respiratory distress Abdomen - soft, nontender, no rebound or guarding Extremities - no edema bilaterally Neuro - awake and alert, no focal deficits DS: Data Data Completed and Pending Completed studies during hospitalization [Text1]: Procedures Assistance with Respiratory Ventilation, Less than 24 Consecutive Hours, Continuous Positive Airway Pressure (09/03/20) Detoxification Services for Substance Abuse Treatment (06/01/20) Insertion of Infusion Device into Superior Vena Cava, Percutaneous Approach (06/01/20) Introduction of Vasopressor into Peripheral Vein, Percutaneous Approach (06/01/20) Transfusion of Convalescent Plasma (Nonautologous) into Peripheral Vein, Percutaneous Approach, [employer] (09/03/20) Ultrasonography of Superior Vena Cava, Guidance (06/01/20) Labs on day of discharge: Laboratory Results - last 24 hr 02/26/21 02/26/21 07:26 08:35 WBC 18.4 H RBC 3.23 L Hgb 9.3 L Hct 28.8 L MCV 89.2 MCH 28.8 MCHC 32.3 RDW 19.4 H Plt Count 795 H MPV 8.9 L Immature Gran % (Auto) 1.2 H Neut % (Auto) 79.0 H Lymph % (Auto) 8.4 L [place] % (Auto) 11.0 Eos % (Auto) 0.3 Baso % (Auto) 0.1 Lymph # (Auto) 1.5 [place] # (Auto) 2.0 H Eos # (Auto) 0.1 Baso # (Auto) 0.0 Abs Immat Gran (auto) 0.22 H Absolute Neuts (auto) 14.5 H Absolute Nucleated RBC 0.050 H Nucleated RBC % (auto) 0.3 H Smear Tech's Comments VERIFIED POC Glucose 101 Preliminary micro results at discharge 10/15/20 04:15 Blood Culture - Preliminary Blood - Venous No growth after 48 hours. 10/15/20 04:15 Blood Culture - Preliminary Blood - Venous No growth after 48 hours. Discharge Plan Discharge Patient Disposition: Home Health Service Referrals: Eliza Lorenzana NP [Nurse Practitioner] - 1 Week (TELE 10/25/2020 2:30. Dr. Kaur will call you with a follow up appointment.) Discharge Medications: New prednisone 20 mg tablet 40 mg PO DAILY Qty: 10 RF: 0 Continued ipratropium-albuterol 0.5 mg-3 mg(2.5 mg base)/3 mL solution for nebulization 3 ml inhalation QID 30 Days Qty: 360 RF: 6 Incruse Ellipta 62.5 mcg/actuation Blister With Device 1 inh INHALATION DAILY RF: 0 acetazolamide 250 mg Tablet 250 mg PO DAILY Qty: 30 RF: 0 docusate sodium 100 mg Capsule 100 mg PO BID RF: 0 valsartan 40 mg Tablet 40 mg PO DAILY RF: 0 Breo Ellipta 200-25 mcg/dose Blister With Device 1 inh INHALATION DAILY RF: 0 gabapentin 300 mg Capsule 300 mg PO TID RF: 0 doxycycline hyclate 100 mg capsule 100 mg PO BID 7 Days Qty: 14 RF: 0 amoxicillin-pot clavulanate [Augmentin] 875-125 mg tablet 1 tab PO BID Qty: 14 RF: 0 atorvastatin 20 mg tablet 20 mg PO DAILY RF: 0 albuterol sulfate 2.5 mg /3 mL (0.083 %) solution for nebulization 2.5 mg inhalation QID PRN (Reason: Wheezing) RF: 0 aspirin 81 mg tablet,delayed release (DR/EC) 81 mg PO DAILY RF: 0 sildenafil [Viagra] 100 mg tablet 0.5 - 1 tab PO DAILY PRN (Reason: Erectile Dysfunction) RF: 0 montelukast 10 mg tablet 10 mg PO BEDTIME RF: 0 Atrovent HFA 17 mcg/actuation HFA aerosol inhaler 2 puff PO QID RF: 0 multivitamin Tablet 1 tab PO DAILY RF: 0 bupropion HCl 150 mg tablet sustained-release 12 hr 150 mg PO BID RF: 0 sennosides [senna] 8.6 mg tablet 1 tab PO BEDTIME PRN (Reason: Constipation) RF: 0 ketoconazole 2 % shampoo 1 appl topical 2XW RF: 0 ferrous sulfate 325 mg (65 mg iron) tablet 325 mg PO DAILY RF: 0 fluticasone propionate 50 mcg/actuation spray,suspension 2 spray intranasal DAILY PRN (Reason: Nasal Congestion) RF: 0 Discharge Orders: Discharge Order (Routine); Ordered 10/18/20 Ordered By: Jitendra Moses Diet: advance to usual diet Activity on Discharge: As tolerated Stand Alone Forms: Patient Portal Discharge page Care Plan Goals: To stay healthy and out of the hospital. Health Concerns: COPD / Bronchiatasis COVID 19 positive Plan of Treatment: Take 7 more days of antibiotics. Take 5 more days of pensioned Use your oxygen as you normally are doing You most likely do not have reinfection with COVID 19 (Positive IgG) but out of an abundance of caution, maintain self-isolation for another 7 days.
--- NOTE | 2020-10-18 11:13 | MHC.CM.PN ---
IMM 10/16 DC today Male 65 dx SOB dispo is to home, no services, via private transport.
== END 2020-10-18 11:30 | disposition home health service (06) | DRG 177 ==
LOC: HO.ED 06:42 → HO.EDOVER 11:58 → HO.IMC 12:26
PROVIDERS: Admitting Provider Family Medicine; Emergency Provider Emergency Medicine; PCP Nurse Practitioner Family; Visit Provider Family Medicine
DX: U07.1 COVID-19 (principal); J96.21 Acute and chronic respiratory failure with hypoxia; J44.1 Chronic obstructive pulmonary disease with (acute) exacerbation; D72.829 Elevated white blood cell count, unspecified; Z86.16 Personal history of COVID-19; Z99.81 Dependence on supplemental oxygen; Z87.891 Personal history of nicotine dependence; Z79.51 Long term (current) use of inhaled steroids; Z79.82 Long term (current) use of aspirin; Z79.899 Other long term (current) drug therapy
CPT/HCPCS: 0241U; 36415; 71045; 80048; 81003; 82803; 82947; 83605; 83880; 84145; 84484; 85014; 85018; 85025; 85027; 86769; 87040; 93005; 96361; 96365; 96374; 99285; J1650; J2543; J2920

== ENCOUNTER → 2020-10-22 10:54 | Outpatient (BNVA) | payer OTHER, SELFPAY | PROVIDERS: PCP Internal Medicine; Visit Provider Internal Medicine Pulmonary Disease | DX: Z13.89 Encounter for screening for other disorder (principal) | CPT/HCPCS: Q3014 ==

== ENCOUNTER → 2020-10-23 09:45 | Outpatient (BNVA) | payer OTHER, SELFPAY | PROVIDERS: PCP Internal Medicine; Visit Provider Internal Medicine Pulmonary Disease | DX: J44.9 Chronic obstructive pulmonary disease, unspecified (principal); A31.9 Mycobacterial infection, unspecified; Z99.81 Dependence on supplemental oxygen; Z87.891 Personal history of nicotine dependence | CPT/HCPCS: 99212 ==

== ENCOUNTER 2020-10-25 18:44 | Inpatient (IN) | payer OTHER, SELFPAY ==
--- NOTE | ~2020-10-25 | XR_ITS ---
EXAMINATION: XR CHEST CLINICAL INFORMATION: Shortness of breath COMPARISON: 10/26/2020 TECHNIQUE: Frontal view of the chest was obtained. FINDINGS: Redemonstrated architectural distortion in the upper lungs bilaterally with volume loss and regions of opacity which appears similar in the right lung and slightly worsened in the left upper lung compared to prior. No appreciable pneumothorax or significant pleural effusion. The cardiomediastinal silhouette is stable. No acute osseous findings are seen. XR/XR chest 1V IMPRESSION: Redemonstrated architectural distortion in the upper lungs with regions of opacity. In comparison to 10/26/2020, areas of consolidation in the left upper lung appear mildly increased.
--- NOTE | ~2020-10-25 | CT_ITS ---
EXAMINATION: CT CHEST WITHOUT CONTRAST CLINICAL INFORMATION: Covid pneumonia with bronchiectasis. COMPARISON: Chest radiograph 10/25/2020, CT chest 10/10/2020 and 09/22/2020. TECHNIQUE: Multidetector volumetric CT imaging of the chest was done. Axial MIP volume rendering provided. Sagittal and coronal reformatted images were obtained. This CT examination was performed using dose optimization techniques as appropriate, variously including the following: *Automated exposure control *Adjustment of mA and/or kV according to patient size (this includes techniques or standardized protocols for targeted exams where dose is matched to indication/reason for exam; i.e. extremities or head) *Use of iterative reconstruction technique DLP: 161 mGy-cm FINDINGS: LUNGS: Compared to the study of 10/10/2020, findings are fairly similar with the exception of development of increased infiltrate and cystic changes in the lingula on the left (5:113 through 203). Again seen are marked emphysematous changes throughout the lungs with large thick-walled Bullae in the upper lobes. Extensive right lower lobe infiltrate and cystic changes are present with a cavitary area with layering fluid. Again seen in the left upper lobe is a cavity with a dependent 1.1 cm rounded filling defect. Spiculated 1.1 cm left lower lobe mass unchanged (5:241). MEDIASTINUM: Coronary disease is unchanged as are small reactive lymph nodes without gross adenopathy. PLEURA: There is no pleural effusion. No pleural mass or thickening. No pneumothorax. AXILLA: No lymphadenopathy. UPPER ABDOMEN: Left upper pole renal cyst again noted. OSSEOUS STRUCTURES: Mild degenerative changes and compression fracture midthoracic vertebral body unchanged. CT/CT chest wo con IMPRESSION: Compared to the prior study the only area of significant worsening is in the lingula with there is new extensive infiltrate and cystic change. The exam is otherwise unchanged.
--- NOTE | ~2020-10-25 | CT_ITS ---
EXAMINATION: CT ANGIOGRAM OF THE CHEST WITH AND WITHOUT CONTRAST (CT PULMONARY ANGIOGRAM FOR PE) CLINICAL INFORMATION: Reason for Exam to rule out pe, persistant tachycardia / hypoxia COMPARISON: 10/25/2020 TECHNIQUE: Prior to contrast administration, noncontrast localization images were obtained. Subsequently, multidetector volumetric imaging was performed from the thoracic inlet to below the diaphragms following the administration of 75 mL Omnipaque 350 intravenous contrast. No contrast reaction reported Sagittal, coronal, and MIP oblique sagittal reformatted images were obtained on the CT workstation, uploaded to PACS, and reviewed. This CT examination was performed using dose optimization techniques as appropriate, variously including the following: *Automated exposure control *Adjustment of mA and/or kV according to patient size (this includes techniques or standardized protocols for targeted exams where dose is matched to indication/reason for exam; i.e. extremities or head) *Use of iterative reconstruction technique Total exam dose-length product 144 mGy-cm FINDINGS: QUALITY OF STUDY/CONTRAST BOLUS: Satisfactory. PULMONARY ARTERIES: No central or segmental pulmonary emboli. THORACIC AORTA: No aneurysm or dissection. LUNG: The extent of parenchymal disease is similar with cystic changes including upper lobe. Air-fluid level persists possible indicating superimposed infection. Element of chronic disease also noted which retraction of pulmonary payal and biapical scarring. Thick-walled cavitations within the upper lung zones bilaterally are similar. An intracavitary nodule on the left is similar. Superimposed right lower lobe infiltration possibly on the basis of aspiration noted. PLEURA: No pleural effusion or pneumothorax. MEDIASTINUM: Normal heart size. No pericardial effusion. No hilar or mediastinal lymphadenopathy. No evidence of septal bowing or right heart strain. CHEST WALL/AXILLA: No axillary or internal mammary lymphadenopathy. OSSEOUS STRUCTURES: No acute or suspicious osseous abnormality. UPPER ABDOMEN: Unremarkable. No reflux of contrast into the hepatic veins to suggest elevated right heart pressures. CT/CT angio chest PE protocol IMPRESSION: No evidence for acute or chronic pulmonary embolism. Extensive infiltration acute on chronic changes similar to the most recent CT. VTE: negative
--- NOTE | ~2020-10-25 | CT_ITS ---
EXAMINATION: CT HEAD WITHOUT CONTRAST CLINICAL INFORMATION: Lethargic COMPARISON: None TECHNIQUE: Contiguous axial imaging was performed from the skull base to vertex without intravenous administration of contrast. This CT examination was performed using dose optimization techniques as appropriate, variously including the following: *Automated exposure control *Adjustment of mA and/or kV according to patient size (this includes techniques or standardized protocols for targeted exams where dose is matched to indication/reason for exam; i.e. extremities or head) *Use of iterative reconstruction technique DLP: 652 mGy-cm FINDINGS: There is no evidence of acute intracranial hemorrhage or territorial infarction. No abnormal mass effect or midline shift is seen. [place]s to white matter differentiation is well preserved. No extra-axial fluid collections are identified. The ventricles are normal in size. There is no abnormal attenuation within the brain parenchyma. Mild volume loss is noted. The osseous structures and soft tissues are normal. The mastoid air cells and visualized portions of the paranasal sinuses are well aerated. CT/CT head/brain wo con IMPRESSION: No acute intracranial pathology.
--- NOTE | ~2020-10-25 | XR_ITS ---
EXAMINATION: XR CHEST CLINICAL INFORMATION: Pneumonia COMPARISON: Chest x-ray 10/15/2020. CT chest 10/10/2020 TECHNIQUE: Frontal view of the chest was obtained. 7:55 PM FINDINGS: Stable chronic changes of upper lobes seen on multiple prior exams of cavitation, pleural parenchymal scarring and elevated right and left payal. There is increasing consolidation in the peripheral mid upper right lung inferior to the cavitary region of the lung. There is now also new faint hazy airspace opacity over the left upper lung peripherally. XR/XR chest 1V IMPRESSION: Increasing bilateral upper lobe airspace opacities compared with prior chest x-ray 10/15/2020. Stable underlying chronic abnormalities of chest.
--- NOTE | 2020-10-25 19:08 | ED_ITS ---
HPI - General Adult General Chief complaint: Fever Stated complaint: FEVER BACK PAIN Time Seen by Provider: 10/25/20 19:05 Source: patient Mode of arrival: ambulatory Limitations: no limitations History of Present Illness HPI narrative: Patient With history of COPD bronchiectasis, SYED on home oxygen 2 L with history of COVID in 09/12 comes here with temperature of 100 degrees just prior to arrival. Patient feels okay otherwise no chills has chronic cough on arrival patient oral temperature was 99.7 degrees patient tachycardic with heart rate of 140 per records patient does have tachycardia all the time in the same range. Patient denies any significant shortness of breath or change in cough feels fine otherwise no chest pain or dizziness patient discharged home on 10/18 on Augmentin, prednisone and doxycycline Related Data Home Medications Medication Instructions Recorded Confirmed Atrovent HFA 2 puff PO QID 06/01/20 10/15/20 albuterol sulfate 2.5 mg INHALATION QID PRN 06/01/20 10/15/20 aspirin 81 mg PO DAILY 06/01/20 10/15/20 atorvastatin 20 mg PO DAILY 06/01/20 10/15/20 montelukast 10 mg PO BEDTIME 06/01/20 10/15/20 sildenafil [Viagra] 0.5 - 1 tab PO DAILY PRN 06/01/20 10/15/20 bupropion HCl 150 mg PO BID 08/05/20 10/15/20 ferrous sulfate 325 mg PO DAILY 08/05/20 10/15/20 fluticasone propionate 2 spray INTRANASAL DAILY PRN 08/05/20 10/15/20 ketoconazole 1 appl TOPICAL 2XW 08/05/20 10/15/20 multivitamin 1 tab PO DAILY 08/05/20 10/15/20 sennosides [senna] 1 tab PO BEDTIME PRN 08/05/20 10/15/20 Incruse Ellipta 1 inh INHALATION DAILY 09/03/20 10/15/20 Breo Ellipta 1 inh INHALATION DAILY 10/10/20 10/15/20 docusate sodium 100 mg PO BID 10/10/20 10/15/20 gabapentin 300 mg PO TID 10/10/20 10/15/20 valsartan 40 mg PO DAILY 10/10/20 10/15/20 Previous Rx's Medication Instructions Recorded ipratropium 0.5 mg-albuterol 3 mg 3 ml INHALATION QID 30 Days #360 ml 06/28/20 (2.5 mg base)/3 mL nebulization soln acetazolamide 250 mg PO DAILY #30 tab 09/08/20 amoxicillin-pot clavulanate 1 tab PO BID #14 tab 10/18/20 [Augmentin] doxycycline hyclate 100 mg PO BID 7 Days #14 cap 10/18/20 prednisone 40 mg PO DAILY #10 tab 10/18/20 Allergies Allergy/AdvReac Type Severity Reaction Status Date / Time morphine [MORPHINE] Allergy Mild VOMITING Verified 10/23/20 09:48 Review of Systems Review of Systems: Constitutional : No Weight loss, +Fever, No Chills ENT/Mouth : No sore throat, No Rhinorrhea Eyes: No Eye Pain, No Swelling Cardiovascular : No Chest Pain, no palpitations Respiratory : Chronic Cough, No Sputum, + shortness of breath Gastrointestinal : no Nausea, No Vomiting, No Diarrhea, No abdominal Pain, no black stools Genitourinary : No Dysuria, No Urinary Frequency Musculoskeletal : No joint pain, No Myalgias, No Joint Swelling Skin : No Skin Lesions, No rash Neuro : No Weakness, No Numbness, No Dizziness, No Headache Psych : No Anxiety/Panic, No Depression Heme/Lymph: No Bruising, No Lymphadenopathy Endocrine : No Polyuria, No Polydipsia All other systems reviewed and are negative [facility] Past Medical History Medical History Asthma Bronchiectasis Cocaine abuse COPD (chronic obstructive pulmonary disease) COVID-19 virus infection Latent tuberculosis Mycobacteria, atypical Pneumonia Respiratory failure with hypoxia and hypercapnia Family History Family History Other Family history non-contributory HTN (hypertension) Social History Social History Household Members: Spouse Housing: Apartment Alcohol intake: never Smoking Status: Former smoker Second Hand Smoke Exposure: No Use of substances other than those prescribed or required for medical reasons: No Substance Use Type: Crack/Cocaine Advance Directives: No service: No Current occupational status: unemployed and retired Physical Exam Vital Signs: Vital Signs: Last Vital Signs Temp 98.4 F 10/25/20 23:56 Pulse 125 H 10/25/20 23:56 Resp 22 H 10/25/20 23:56 BP 118/71 10/25/20 19:23 Pulse Ox 94 10/25/20 23:56 Body Mass Index 17.3 Appearance: Alert. Oriented X3. No acute distress. Eyes: Pupils equal, round and reactive to light. ENT: Pharynx normal. Neck: Normal inspection. Neck supple. CVS: Tachycardia. Regular rhythm no murmur Pulses normal. Respiratory: No respiratory distress. Prolonged expiration no crackles rhonchi or wheezing Abdomen: Soft and nontender. Bowel sounds are present, no mass palpable, no CVA tenderness Skin: Skin warm and dry. Normal skin color. Normal skin turgor. Extremities: No lower extremity edema. Neuro: Oriented X 3. No motor deficit. No sensory deficit. Medical Decision Making MDM Narrative Medical decision making narrative: Patient with bronchiectasis COPD with low- grade fever already on antibiotic of Augmentin and doxycycline just finished prednisone comes in with low-grade fever and tachycardia CT scan of the chest and chest x-ray showed new infiltrate in the lingular area also patient has elevated white count which could be secondary to prednisone. Patient has chronically tachycardia afebrile now will admit patient for pneumonia with COPD and bronchiectasis Lab Data Lab results reviewed: Yes I reviewed the patient's lab results. Result diagrams: 10/25/20 19:48 10/25/20 19:48 Labs: Lab Results 10/25/20 10/25/20 10/25/20 Range/Units 19:48 19:48 19:48 WBC 27.3 H (4.8-10.8) X10*3/uL RBC 3.69 L (4.60-5.80) X10*6/uL Hgb 10.7 L (14.0-18.0) g/dl Hct 34.0 L (42-52) % MCV 92.1 (80-98) fL MCH 29.0 (27.0-33.0) pg MCHC 31.5 (31.0-36.0) g/dl RDW 19.9 H (11.0-16.0) % Plt Count 679 H (160-400) X10*3/uL MPV 9.2 L (9.4-12.4) fL Immature Gran % (Auto) 0.8 H (0.0-0.4) % Neut % (Auto) 84.9 H (45-73) % Lymph % (Auto) 5.0 L (20-40) % [place] % (Auto) 8.3 (2-11) % Eos % (Auto) 0.9 (0-4) % Baso % (Auto) 0.1 (0-2) % Lymph # (Auto) 1.4 (1.2-4.9) X10*3/uL [place] # (Auto) 2.3 H (0.1-1.2) X10*3/uL Eos # (Auto) 0.3 (0.0-0.4) X10*3/uL Baso # (Auto) 0.0 (0.0-0.2) X10*3/uL Abs Immat Gran (auto) 0.21 H (0.00-0.03) X10*3/uL Absolute Neuts (auto) 23.2 H (2.0-8.3) X10*3/uL Absolute Nucleated RBC 0.000 (0.0-0.012) X10*3/uL Nucleated RBC % (auto) 0.0 (0.0-0.2) /100WBC Smear Tech's Comments VERIFIED Sodium 133 L (135-145) mmol/L Potassium 5.1 (3.3-5.1) mmol/L Chloride 85 L (96-108) mmol/L Carbon Dioxide 39 H (22-29) mmol/L Anion Gap 14 (12-20) BUN 11 (9-16) mg/dL Creatinine 0.62 (0.5-1.4) mg/dL Estim Creat Clear Calc 75.9 Estimated GFR > 60 Random Glucose 145 H (60-115) mg/dL Lactic Acid 1.5 (0.5-2.0) mmol/L Calcium 8.5 (8.4-10.2) mg/dL Total Bilirubin 0.4 (0.0-1.0) mg/dL Direct Bilirubin 0.2 (0.0-0.5) mg/dL AST 22 (5-37) U/L ALT 30 (0-40) U/L Alkaline Phosphatase 126 H D (39-117) U/L Total Protein 6.5 (6.5-8.0) g/dL Albumin 3.3 L (3.5-5.0) g/dL ECG Data Attestation: I personally reviewed and interpreted this ECG as follows: Interpretation: Sinus tachycardia with heart rate 138 beats per minute normal axis normal intervals no acute ST T wave changes no acute ischemic Discharge Plan Discharge Clinical Impression: Supplemental oxygen dependent Pneumonia Qualifiers: Pneumonia type: due to unspecified organism Laterality: left Lung location: lower lobe of lung Qualified Code(s): J18.9 - Pneumonia, unspecified organism Patient Disposition: Admitted As Inpatient
[2020-10-25 19:23] VITALS: BP 118/71; PULSE 136; RESP 24; TEMP 37.6; O2SAT 96; BMI 17.3
--- NOTE | 2020-10-25 19:28 | ECG_ITS ---
Test Reason : TACHYCARDIA Blood Pressure : / mmHG Vent. Rate : 138 BPM Atrial Rate : 138 BPM P-R Int : 112 ms QRS Dur : 076 ms QT Int : 274 ms P-R-T Axes : 076 -27 070 degrees QTc Int : 415 ms Artifact in tracing Sinus tachycardia Right atrial enlargement Borderline ECG When compared with ECG of 15-OCT-2020 04:01, No significant changes seen Referred By: Westley Kerns Electronically Signed By:CRISTINA SOLORZANO
[2020-10-25 19:54] LABS: Basophils Percent Auto 0.1 % (0-2); Eosinophils Absolute Auto 0.3 X10*3/uL (0.0-0.4); Eosinophils Percent Auto 0.9 % (0-4); Hemoglobin 10.7 g/dl (14.0-18.0); Imm Gran Abs Auto 0.21 X10*3/uL (0.00-0.03); Imm Gran Pct Auto 0.8 % (0.0-0.4); Lymphocytes Absolute Auto 1.4 X10*3/uL (1.2-4.9); MANUAL DIFF FLAG SCAN; Mean Corpuscular HGB Conc 31.5 g/dl (31.0-36.0); Mean Corpuscular Volume 92.1 fL (80-98); Mean Platelet Volume 9.2 fL (9.4-12.4); Monocytes Absolute Auto 2.3 X10*3/uL (0.1-1.2); Monocytes Percent Auto 8.3 % (2-11); Neutrophils Absolute Auto 23.2 X10*3/uL (2.0-8.3); Neutrophils Percent Auto 84.9 % (45-73); Platelet Count 679 X10*3/uL (160-400); Red Blood Count 3.69 X10*6/uL (4.60-5.80); Red Cell Distribution Width 19.9 % (11.0-16.0); SCAN SMEAR FLAG 1; White Blood Count 27.3 X10*3/uL (4.8-10.8)
[2020-10-25] MEDS: Acetaminophen 325 MG TABLET 650 MG PO (19:57)
[2020-10-25] MEDS: 0.9 % Sodium Chloride 1,000 ML 999 ML IVCONT (19:58)
[2020-10-25 20:17] LABS: Lactic Acid 1.5 mmol/L (0.5-2.0)
[2020-10-25 20:36] LABS: SLIDE REVIEW VERIFIED
[2020-10-25 20:43] LABS: Carbon Dioxide 39 mmol/L (22-29)
[2020-10-25 20:48] LABS: Alanine Aminotransferase 30 U/L (0-40); Albumin Level 3.3 g/dL (3.5-5.0); Alkaline Phosphatase 126 U/L (39-117); Anion Gap 14 (12-20); Aspartate Amino Transferase 22 U/L (5-37); Bilirubin Direct 0.2 mg/dL (0.0-0.5); Bilirubin Total 0.4 mg/dL (0.0-1.0); Blood Urea Nitrogen 11 mg/dL (9-16); Calcium 8.5 mg/dL (8.4-10.2); Chloride 85 mmol/L (96-108); Creatinine Clr Calc Pharmacy 75.9; Estimated Glomerular Filt Rate > 60; Glucose Random 145 mg/dL (60-115); Potassium 5.1 mmol/L (3.3-5.1); Sodium 133 mmol/L (135-145); Total Protein 6.5 g/dL (6.5-8.0)
[2020-10-25 22:00] VITALS: PULSE 124; RESP 24; O2SAT 96
--- NOTE | 2020-10-25 23:46 | P.HPHOSP_ITS ---
History of Present Illness Date of Service: 10/25/20 Chief Complaint: Fever 65-year-old male with a past medical history of hypertension, hyperlipidemia, COPD on home oxygen, latent tuberculosis, recently discharged from the hospital for COVID-19 pneumonia/COPD exacerbation presented to the hospital today with a chief complaint of fevers. Complains of cough with yellowish sputum. Also complains of shortness of breath. Denies any numbness tingling. Denies any chest pain palpitations lightheadedness or dizziness. Denies any GI or symptoms. Patient mentioned that he was taking prednisone taper and antibiotics which he just finished. Given recurrent fevers presented to the ER for further evaluation. Review of all other systems is negative except mentioned above ER course: For ER team patient noted to have low-grade fevers, saturations are 88%; CT chest showed new extensive lingular infiltrate; patient was also noted to be tachycardic, presumed to be in the setting of sepsis. [facility] Medical History Asthma Bronchiectasis Cocaine abuse COPD (chronic obstructive pulmonary disease) COVID-19 virus infection Mycobacteria, atypical Pneumonia Respiratory failure with hypoxia and hypercapnia Family History Other Family history non-contributory HTN (hypertension) Social History Household Members: Significant Other Housing: Apartment Alcohol intake: never Smoking Status: Former smoker Second Hand Smoke Exposure: No Use of substances other than those prescribed or required for medical reasons: No Substance Use Type: Crack/Cocaine Currently Displaying Signs/Symptoms of Drug Intoxication Withdrawal: No Have you been hit, kicked, punched, or otherwise hurt by someone within the past year? If so, by whom?: No Do you feel safe in your current relationship?: Yes Is there a partner from a previous relationship who is making you feel unsafe now?: No Advance Directives: No Do you have thoughts of harming others: None Do you have a plan to hurt others: No Plan Recently lost weight without trying: No service: No Current occupational status: unemployed and retired Meds Allergies Allergy/AdvReac Type Severity Reaction Status Date / Time morphine [MORPHINE] Allergy Mild VOMITING Verified 10/23/20 09:48 Active Medications: Current Medications Generic Name Dose Route Start Last Admin Trade Name Freq PRN Reason Stop Dose Admin Acetaminophen 650 mg 10/25/20 23:38 Acetaminophen 325 Mg Tablet PO Q6H PRN Pain, Mild (Pain Scale 1-3) Albuterol Sulfate 2 puff 10/25/20 23:42 Albuterol Sulfate 90 Mcg 8 Gm Inhaler INHALE RQ4H PRN Shortness of Breath/Wheezing Enoxaparin Sodium 40 mg 10/25/20 23:45 Enoxaparin Sodium 40 Mg/0.4 Ml Syringe SUBCUT Q24H [facility] Piperacillin Sod/Tazobactam 50 mls @ 100 mls/hr 10/25/20 23:34 Sod 3.375 gm/ Sodium Chloride IV 10/26/20 00:03 ONCE ONE Vancomycin HCl 750 mg/ Sodium 265 mls @ 265 mls/hr 10/25/20 23:34 Chloride IV 10/26/20 00:33 ONCE ONE Vancomycin HCl 1,000 mg/ 270 mls @ 270 mls/hr 10/25/20 23:45 Sodium Chloride IV Q12H [facility] Piperacillin Sod/Tazobactam 50 mls @ 100 mls/hr 10/25/20 23:45 Sod 3.375 gm/ Sodium Chloride IV Q6H [facility] Insulin Human Lispro 0 unit 10/26/20 07:30 Insulin Lispro 100 Unit/Ml 3 Ml Vial SUBCUT QIDACHS [facility] Protocol Pharmacy Consult 1 each 10/25/20 23:34 Consult Rx Vancomycin Dosing MISCELLANE DAILY PRN Consult order Pharmacy Consult 1 each 10/25/20 23:38 Consult Rx Vancomycin Dosing MISCELLANE DAILY PRN Consult order Sodium Chloride 3 ml 10/26/20 00:00 0.9 % Sodium Chloride Flush 3 Ml Syringe IVFLUSH QSHIFT [facility] Home Medications Medication Instructions Recorded Confirmed Last Taken Type Atrovent HFA 2 puff PO QID 06/01/20 10/26/20 Unknown History albuterol sulfate 2.5 mg INHALATION QID PRN 06/01/20 10/26/20 Unknown History aspirin 81 mg PO DAILY 06/01/20 10/26/20 Unknown History atorvastatin 20 mg PO DAILY 06/01/20 10/26/20 Unknown History montelukast 10 mg PO BEDTIME 06/01/20 10/26/20 Unknown History sildenafil [Viagra] 0.5 - 1 tab PO DAILY PRN 06/01/20 10/26/20 Unknown History bupropion HCl 150 mg PO BID 08/05/20 10/26/20 Unknown History ferrous sulfate 325 mg PO DAILY 08/05/20 10/26/20 Unknown History fluticasone propionate 2 spray INTRANASAL DAILY PRN 08/05/20 10/26/20 Unknown History ketoconazole 1 appl TOPICAL 2XW 08/05/20 10/26/20 Unknown History multivitamin 1 tab PO DAILY 08/05/20 10/26/20 Unknown History sennosides [senna] 1 tab PO BEDTIME PRN 08/05/20 10/26/20 Unknown History Incruse Ellipta 1 inh INHALATION DAILY 09/03/20 10/26/20 Unknown History Breo Ellipta 1 inh INHALATION DAILY 10/10/20 10/26/20 Unknown History docusate sodium 100 mg PO BID 10/10/20 10/26/20 Unknown History gabapentin 300 mg PO TID 10/10/20 10/26/20 Unknown History valsartan 40 mg PO DAILY 10/10/20 10/26/20 Unknown History Physical Exam Vital Signs and Narrative: Vital Signs: Last Vital Signs Temp 99.7 F 10/25/20 19:23 Pulse 124 H 10/25/20 22:00 Resp 24 H 10/25/20 22:00 BP 118/71 10/25/20 19:23 Pulse Ox 96 10/25/20 22:00 Body Mass Index 17.3 Gen: Appears be in no acute distress; speaks in full sentences HEENT: NCAT, Moist mucosa. Pulmonary: Coarse breath sounds CVS: Normal S1-S2 Abdomen: BS+, Soft, Nontender Extremities: Warm well perfused Neuro: Alert and awake. Results Labs CBC and Chem 7: 10/26/20 06:17 10/26/20 06:17 Labs: Laboratory Results - last 24 hr 10/25/20 10/25/20 10/25/20 19:48 19:48 19:48 MCV 92.1 MCH 29.0 MCHC 31.5 RDW 19.9 H Plt Count 679 H MPV 9.2 L Immature Gran % (Auto) 0.8 H Neut % (Auto) 84.9 H Lymph % (Auto) 5.0 L [place] % (Auto) 8.3 Eos % (Auto) 0.9 Baso % (Auto) 0.1 Lymph # (Auto) 1.4 [place] # (Auto) 2.3 H Eos # (Auto) 0.3 Baso # (Auto) 0.0 Abs Immat Gran (auto) 0.21 H Absolute Neuts (auto) 23.2 H Absolute Nucleated RBC 0.000 Nucleated RBC % (auto) 0.0 Smear Tech's Comments VERIFIED Anion Gap 14 Estim Creat Clear Calc 75.9 Estimated GFR > 60 Random Glucose 145 H Lactic Acid 1.5 Calcium 8.5 Total Bilirubin 0.4 Direct Bilirubin 0.2 AST 22 ALT 30 Alkaline Phosphatase 126 H D Total Protein 6.5 Albumin 3.3 L Imaging Radiologist's Impressions: Impressions Chest X-Ray 10/25/20 19:28 IMPRESSION: Increasing bilateral upper lobe airspace opacities compared with prior chest x-ray 10/15/2020. Stable underlying chronic abnormalities of chest. Chest CT 10/25/20 21:43 IMPRESSION: Compared to the prior study the only area of significant worsening is in the lingula with there is new extensive infiltrate and cystic change. The exam is otherwise unchanged. Assessment and Plan (1) HCAP (healthcare-associated pneumonia): Status: Acute 65-year-old male with a past medical history of hypertension, hyperlipidemia, COPD on home oxygen, history of latent tuberculosis, recent admission to the hospital for COVID-19 pneumonia/COPD exacerbation presented to the ER today with a chief complaint of fevers and cough. Noted her new ext ensive lingular infiltrate on the CT chest. Admitted for further management. Health-care associated pneumonia: Will continue vanc and Zosyn. CT chest showed extensive lingular infiltrate and also cystic change. Will consult pulmonology and Infectious Disease consult further recommendations . Monitor fever curve Recent COVID-19 positive: Monitor respiratory status. Isolation precautions. History of COPD: Patient has recent admission for COPD exacerbation. He just finished prednisone taper. Continue albuterol inhaler. For all other chronic conditions, home medications will be continued Code status: Full code
[2020-10-25 23:56] VITALS: PULSE 125; RESP 22; TEMP 36.9; O2SAT 94
[2020-10-26] VITALS (7 sets, daily range): BP systolic 90–115; BP diastolic 56–67; PULSE 108–148; RESP 12–22; TEMP 36.6–37.3; O2SAT 92–96
[2020-10-26 00:31] LABS: COVID-19 Test Negative (Negative)
[2020-10-26] MEDS: Piperacillin Sodium/Tazobactam 3.375 GM in 0.9 % Sodium Chloride 50 ML IV ×3 (00:40→12:01)
[2020-10-26] MEDS: vancomycin HCL 750 MG in 0.9 % Sodium Chloride 250 ML 265 MG IV (01:34)
[2020-10-26 02:21] LABS: Glucose, Whole Blood 107 mg/dL (60-115)
[2020-10-26] MEDS: 0.9 % Sodium Chloride Flush 3 ML SYRINGE IVFLUSH ×4 (02:44→23:52)
[2020-10-26] MEDS: Enoxaparin Sodium 40 MG/0.4 ML SYRINGE SUBCUT ×2 (02:44→23:52)
[2020-10-26] MEDS: 0.9 % Sodium Chloride 250 ML 75 ML IVCONT (04:45)
--- NOTE | 2020-10-26 04:53 | PC.NURSE ---
Patients heart rate is consistently 130-150s sinus tach on tele. Patient asymptomatic. Patient states he has a high heart rate. Per ED note, this is chronic for the patient. Dr Neely notified, 250cc bolus of NS 75mls/hr ordered and Cardiology consult placed.
[2020-10-26] MEDS: Acetaminophen 325 MG TABLET 650 MG PO ×2 (06:12→13:51)
[2020-10-26 07:30] LABS: Basophils Absolute Auto 0.1 X10*3/uL (0.0-0.2); Basophils Percent Auto 0.2 % (0-2); Eosinophils Absolute Auto 0.1 X10*3/uL (0.0-0.4); Eosinophils Percent Auto 0.2 % (0-4); Hematocrit 30.7 % (42-52); Hemoglobin 9.7 g/dl (14.0-18.0); Imm Gran Abs Auto 0.25 X10*3/uL (0.00-0.03); Imm Gran Pct Auto 0.8 % (0.0-0.4); Lymphocytes Absolute Auto 1.5 X10*3/uL (1.2-4.9); Lymphocytes Percent Auto 4.9 % (20-40); MANUAL DIFF FLAG SCAN; Mean Corpuscular HGB Conc 31.6 g/dl (31.0-36.0); Mean Corpuscular Hemoglobin 28.5 pg (27.0-33.0); Mean Corpuscular Volume 90.3 fL (80-98); Mean Platelet Volume 9.8 fL (9.4-12.4); Monocytes Absolute Auto 2.3 X10*3/uL (0.1-1.2); Monocytes Percent Auto 7.5 % (2-11); Neutrophils Absolute Auto 26.2 X10*3/uL (2.0-8.3); Neutrophils Percent Auto 86.4 % (45-73); Platelet Count 685 X10*3/uL (160-400); Red Cell Distribution Width 19.9 % (11.0-16.0); SCAN SMEAR FLAG 1
[2020-10-26 07:36] LABS: Blood Urea Nitrogen 11 mg/dL (9-16); Calcium 8.6 mg/dL (8.4-10.2); Creatinine Clr Calc Pharmacy 82.6; Estimated Glomerular Filt Rate > 60; Glucose Random 100 mg/dL (60-115)
[2020-10-26 07:51] LABS: White Blood Count 30.3 X10*3/uL (4.8-10.8)
[2020-10-26 07:54] LABS: Thyroid Stimulating Hormone 0.47 uIU/mL (0.32-4.0)
[2020-10-26 07:58] LABS: Anion Gap 21 (12-20); Carbon Dioxide 33 mmol/L (22-29); Chloride 85 mmol/L (96-108); Potassium 4.6 mmol/L (3.3-5.1); Sodium 134 mmol/L (135-145)
[2020-10-26 08:03] LABS: Glucose, Whole Blood 124 mg/dL (60-115)
[2020-10-26 08:07] LABS: SLIDE REVIEW VERIFIED
[2020-10-26 09:31] LABS: C Reactive Protein 30.32 mg/dL (< or = 0.50)
[2020-10-26 09:48] LABS: Procalcitonin 0.14 ng/mL
[2020-10-26] MEDS: Gabapentin 300 MG CAPSULE PO ×3 (10:14→21:20)
[2020-10-26] MEDS: Multivitamin TABLET 1 TAB PO (10:14)
[2020-10-26] MEDS: Aspirin Enteric Coated 81 MG TABLET.DR PO (10:14)
[2020-10-26] MEDS: Atorvastatin Calcium 20 MG TABLET PO (10:14)
[2020-10-26] MEDS: Ferrous Sulfate 324 MG TABLET.DR PO (10:14)
[2020-10-26 11:18] LABS: Glucose, Whole Blood 162 mg/dL (60-115)
[2020-10-26] MEDS: Insulin Lispro 100 UNIT/ML 3 ML VIAL SUBCUT ×2 (12:01→17:27)
[2020-10-26] MEDS: vancomycin HCL 500 MG in 0.9 % Sodium Chloride 100 ML 110 MG IV (13:00)
--- NOTE | 2020-10-26 13:01 | P.PNIM_ITS ---
Subjective Subjective Date of Service: 10/26/20 Interval History: seen and examined this Am feeling better but still quiet sob with exertion and tachycardia denies cp ROS General - no fevers or chills Cardiovascular - no chest pain Respiratory - +sob Abdominal- no abdominal pain, nausea, vomiting, diarrhea; + hearbnutn Physical Exam Vital Signs: Vital Signs: Last Vital Signs Temp 97.8 F 10/26/20 11:16 Pulse 112 H 10/26/20 11:16 Resp 18 10/26/20 11:16 BP 107/64 10/26/20 11:16 Pulse Ox 96 10/26/20 11:16 Body Mass Index 17.3 Const: Other: General - chronically ill-looking Cardiovascular - regular rate and rhythm, S1-S2; tachycardic Lungs - dim sounds, scattered rhonchi Abdomen - soft, nontender, no rebound or guarding Extremities - no edema bilaterally Neuro - awake and alert, no focal deficits Objective Data Current Medications Generic Name Dose Route Start Last Admin Trade Name Freq PRN Reason Stop Dose Admin Acetaminophen 650 mg 10/25/20 23:38 10/26/20 06:12 Acetaminophen 325 Mg Tablet PO 650 mg Q6H PRN Administration Pain, Mild (Pain Scale 1-3) Albuterol Sulfate 2 puff 10/25/20 23:42 Albuterol Sulfate 90 Mcg 8 Gm Inhaler INHALE RQ4H PRN Shortness of Breath/Wheezing Aspirin 81 mg 10/26/20 09:00 10/26/20 10:14 Aspirin Enteric Coated 81 Mg Tablet. PO 81 mg DAILY ALFONSO Administration Atorvastatin Calcium 20 mg 10/26/20 09:00 10/26/20 10:14 Atorvastatin Calcium 20 Mg Tablet PO 20 mg DAILY ALFONSO Administration Bupropion HCl 300 mg 10/27/20 09:00 Bupropion Hcl Xl 300 Mg Tab.Er.24h PO DAILY ALFONSO Docusate Sodium 100 mg 10/26/20 08:53 Docusate Sodium 100 Mg Capsule PO BID PRN constipation Enoxaparin Sodium 40 mg 10/26/20 00:00 10/26/20 02:44 Enoxaparin Sodium 40 Mg/0.4 Ml Syringe SUBCUT 40 mg Q24H ALFONSO Administration Ferrous Sulfate 324 mg 10/26/20 09:00 10/26/20 10:14 Ferrous Sulfate 324 Mg Tablet. PO 324 mg DAILY ALFONSO Administration Fluticasone/Vilanterol 1 puff 10/27/20 08:00 Fluticasone/Vilanterol 200/25 Blst.W.Dev INHALE RDAILY [facility] Gabapentin 300 mg 10/26/20 09:00 10/26/20 10:14 Gabapentin 300 Mg Capsule PO 300 mg TID ALFONSO Administration Piperacillin Sod/Tazobactam 50 mls @ 100 mls/hr 10/26/20 06:00 10/26/20 12:46 Sod 3.375 gm/ Sodium Chloride IV Infused Q6H [facility] Infusion Vancomycin HCl 500 mg/ Sodium 110 mls @ 110 mls/hr 10/26/20 13:00 10/26/20 13:00 Chloride IV 110 mls/hr Q12H [facility] Administration Insulin Human Lispro 0 unit 10/26/20 07:30 10/26/20 12:01 Insulin Lispro 100 Unit/Ml 3 Ml Vial SUBCUT 2 unit QIDACHS [facility] Administration Protocol Montelukast Sodium 10 mg 10/26/20 21:00 Montelukast Sodium 10 Mg Tablet PO BEDTIME [facility] Multivitamins/Vitamin C 1 tab 10/26/20 09:00 10/26/20 10:14 Multivitamin Tablet PO 1 tab DAILY [facility] Administration Pharmacy Consult 1 each 10/25/20 23:34 Consult Rx Vancomycin Dosing MISCELLANE DAILY PRN Consult order Senna 8.6 mg 10/26/20 08:53 Sennosides 8.6 Mg Tablet PO BEDTIME PRN Constipation Sodium Chloride 3 ml 10/26/20 00:00 10/26/20 08:31 0.9 % Sodium Chloride Flush 3 Ml Syringe IVFLUSH 3 ml QSHIFT [facility] Administration Labs CBC & Chem 7: 10/26/20 06:17 10/26/20 06:17 Assessment and Plan (1) HCAP (healthcare-associated pneumonia): Status: Acute Assessment and Plan: 65-year-old male with a past medical history of COPD, treatment intolerant SYED, bronchiectasis, who was admitted to the hospital from to 10/15 to 10/18 when he was treated for COPD exacerbation and empirically treated with IV antibiotics. He was discharged home with a short course of antibiotics. He now returns the hospital with worsening SOB and reported low grade temperature at home (100 per the patient). He is admitted for further work up. 1. HCAP + Chronic SYED showing worsening of his chronic findings, CRP 30 will contineu with broad spec. abx -- zosyn + vancomycin - D2 ID/Pulm inputs -- ? need for repeat bronch (had one in August of this year). f/u cultures 2. Tachycardia chronic, worsened by acute illness will get Echo to ensure to tachycardia incuded cardiomyopathy 3. COPD not in exacerbation continue his home inhalers 4. Protein Calorie Malnutrition probably moderate will get nutrition evaluation 5. Anemia chronic, mild Full Code DVT pptx, Lovenox
--- NOTE | 2020-10-26 13:16 | W.PM.IDCN ---
History of Present Illness Data of Consult Service Date: 10/26/20 Requesting physician: Jitendra Moses Primary Care Provider: Unknown Physician HPI Reason for consult: cough and shortness of breath He presents to hospital with cough and shortness of breath and some low grade temperature. 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 I know patient well from prior outpatient therapy 2 years ago for persistent SYED He has received multiple months of Rifampin,Ethambutol and Azithromycin with persistent symptoms and patient frustration with side effects of medications He sees Pulmonary now and carries diagnosis of COPD as well and had virtual visit with Dr Lara this week and was feeling improvement Review of Systems Cardiovascular: Cardiovascular: Reports dyspnea Respiratory: Respiratory: Denies change in phlegm color and Reports dyspnea PMFSH Past Medical History Medical History Asthma Bronchiectasis Cocaine abuse COPD (chronic obstructive pulmonary disease) COVID-19 virus infection Mycobacteria, atypical Pneumonia Respiratory failure with hypoxia and hypercapnia Family History Family History Other Family history non-contributory HTN (hypertension) Family history: reviewed and not pertinent Social History Social History Household Members: Significant Other Housing: Apartment Alcohol intake: never Smoking Status: Former smoker Second Hand Smoke Exposure: No Use of substances other than those prescribed or required for medical reasons: No Substance Use Type: Crack/Cocaine Currently Displaying Signs/Symptoms of Drug Intoxication Withdrawal: No Have you been hit, kicked, punched, or otherwise hurt by someone within the past year? If so, by whom?: No Do you feel safe in your current relationship?: Yes Is there a partner from a previous relationship who is making you feel unsafe now?: No Advance Directives: No Do you have thoughts of harming others: None Do you have a plan to hurt others: No Plan Recently lost weight without trying: No service: No Current occupational status: unemployed and retired Meds Allergies Allergy/AdvReac Type Severity Reaction Status Date / Time morphine [MORPHINE] Allergy Mild VOMITING Verified 10/23/20 09:48 Active Medications: Current Medications Generic Name Dose Route Start Last Admin Trade Name Freq PRN Reason Stop Dose Admin Acetaminophen 650 mg 10/25/20 23:38 10/26/20 06:12 Acetaminophen 325 Mg Tablet PO 650 mg Q6H PRN Administration Pain, Mild (Pain Scale 1-3) Albuterol Sulfate 2 puff 10/25/20 23:42 Albuterol Sulfate 90 Mcg 8 Gm Inhaler INHALE RQ4H PRN Shortness of Breath/Wheezing Aspirin 81 mg 10/26/20 09:00 10/26/20 10:14 Aspirin Enteric Coated 81 Mg Tablet. PO 81 mg DAILY ALFONSO Administration Atorvastatin Calcium 20 mg 10/26/20 09:00 10/26/20 10:14 Atorvastatin Calcium 20 Mg Tablet PO 20 mg DAILY ALFONSO Administration Azithromycin 500 mg 10/26/20 13:15 Azithromycin 500 Mg Tablet PO Q24H [facility] Bupropion HCl 300 mg 10/27/20 09:00 Bupropion Hcl Xl 300 Mg Tab.Er.24h PO DAILY ALFONSO Docusate Sodium 100 mg 10/26/20 08:53 Docusate Sodium 100 Mg Capsule PO BID PRN constipation Enoxaparin Sodium 40 mg 10/26/20 00:00 10/26/20 02:44 Enoxaparin Sodium 40 Mg/0.4 Ml Syringe SUBCUT 40 mg Q24H ALFONSO Administration Ferrous Sulfate 324 mg 10/26/20 09:00 10/26/20 10:14 Ferrous Sulfate 324 Mg Tablet. PO 324 mg DAILY ALFONSO Administration Fluticasone/Vilanterol 1 puff 10/27/20 08:00 Fluticasone/Vilanterol 200/25 Blst.W.Dev INHALE RDAILY [facility] Gabapentin 300 mg 10/26/20 09:00 10/26/20 10:14 Gabapentin 300 Mg Capsule PO 300 mg TID ALFONSO Administration Insulin Human Lispro 0 unit 10/26/20 07:30 10/26/20 12:01 Insulin Lispro 100 Unit/Ml 3 Ml Vial SUBCUT 2 unit QIDACHS [facility] Administration Protocol Montelukast Sodium 10 mg 10/26/20 21:00 Montelukast Sodium 10 Mg Tablet PO BEDTIME [facility] Multivitamins/Vitamin C 1 tab 10/26/20 09:00 10/26/20 10:14 Multivitamin Tablet PO 1 tab DAILY [facility] Administration Omeprazole 20 mg 10/26/20 13:15 Omeprazole 20 Mg Capsule. PO DAILY@0630 [facility] Pharmacy Consult 1 each 10/25/20 23:34 Consult Rx Vancomycin Dosing MISCELLANE DAILY PRN Consult order Senna 8.6 mg 10/26/20 08:53 Sennosides 8.6 Mg Tablet PO BEDTIME PRN Constipation Sodium Chloride 3 ml 10/26/20 00:00 10/26/20 08:31 0.9 % Sodium Chloride Flush 3 Ml Syringe IVFLUSH 3 ml QSHIFT [facility] Administration Tobramycin Sulfate 300 mg 10/26/20 13:15 Tobramycin Sulfate 80 Mg/2 Ml Vial INHALE Q12H [facility] Home Medications Medication Instructions Recorded Confirmed Last Taken Type Atrovent HFA 2 puff PO QID 06/01/20 10/26/20 Unknown History albuterol sulfate 2.5 mg INHALATION QID PRN 06/01/20 10/26/20 Unknown History aspirin 81 mg PO DAILY 06/01/20 10/26/20 Unknown History atorvastatin 20 mg PO DAILY 06/01/20 10/26/20 Unknown History montelukast 10 mg PO BEDTIME 06/01/20 10/26/20 Unknown History sildenafil [Viagra] 0.5 - 1 tab PO DAILY PRN 06/01/20 10/26/20 Unknown History bupropion HCl 150 mg PO BID 08/05/20 10/26/20 Unknown History ferrous sulfate 325 mg PO DAILY 08/05/20 10/26/20 Unknown History fluticasone propionate 2 spray INTRANASAL DAILY PRN 08/05/20 10/26/20 Unknown History ketoconazole 1 appl TOPICAL 2XW 08/05/20 10/26/20 Unknown History multivitamin 1 tab PO DAILY 08/05/20 10/26/20 Unknown History sennosides [senna] 1 tab PO BEDTIME PRN 08/05/20 10/26/20 Unknown History Incruse Ellipta 1 inh INHALATION DAILY 09/03/20 10/26/20 Unknown History Breo Ellipta 1 inh INHALATION DAILY 10/10/20 10/26/20 Unknown History docusate sodium 100 mg PO BID 10/10/20 10/26/20 Unknown History gabapentin 300 mg PO TID 10/10/20 10/26/20 Unknown History valsartan 40 mg PO DAILY 10/10/20 10/26/20 Unknown History Physical Exam Vital Signs: Vital Signs: Last Vital Signs Temp 97.8 F 10/26/20 11:16 Pulse 112 H 10/26/20 11:16 Resp 18 10/26/20 11:16 BP 107/64 10/26/20 11:16 Pulse Ox 96 10/26/20 11:16 Body Mass Index 17.3 Const: General: comfortable and no acute distress HENMT: Head: Yes normal to inspection Ears: hearing grossly normal bilaterally Mouth: Normal oral and palatal mucosa present Eyes: General: appearance normal, both eyes and all related structures Resp: Effort & Inspection: normal respiratory effort and able to speak in complete sentences Cardio: Rate: regular rate Rhythm: regular rhythm GI: Palpation (GI): Soft to palpation and nontender : General: Yes no CVA tenderness Back/Spine/Pelvis: Back: no CVA tenderness Skin: General skin exam: no rashes or lesions noted Extrem: General: Yes normal to inspection Psych: Speech and movement: Clear speech present Thought process: Circumstantial thought process present Results Labs CBC & Chem 7: 10/26/20 06:17 10/26/20 06:17 Labs: Short CBC 10/25/20 10/26/20 Range/Units 19:48 06:17 WBC 27.3 H 30.3 H* (4.8-10.8) X10*3/uL Hgb 10.7 L 9.7 L (14.0-18.0) g/dl Hct 34.0 L 30.7 L (42-52) % Plt Count 679 H 685 H (160-400) X10*3/uL BMP 10/25/20 10/26/20 19:48 06:17 Sodium 133 L 134 L Potassium 5.1 4.6 Chloride 85 L 85 L Carbon Dioxide 39 H 33 H BUN 11 11 Creatinine 0.62 0.57 Calcium 8.5 8.6 Liver Function 10/25/20 Range/Units 19:48 Total Bilirubin 0.4 (0.0-1.0) mg/dL Direct Bilirubin 0.2 (0.0-0.5) mg/dL AST 22 (5-37) U/L ALT 30 (0-40) U/L Alkaline Phosphatase 126 H D (39-117) U/L Albumin 3.3 L (3.5-5.0) g/dL Assessment and Plan (1) COPD exacerbation: Problem details: He has exacerbation without purulent sputum There is no lobar pneumonia or HCAP at this time Status: Acute (2) Acute and chronic respiratory failure with hypoxia: Problem details: Due to COPD and possible SYED exacerbation,r/o PE Leukocytosis may be due to steroids,stress Status: Acute Continue treatment Stop IV Vancomycin and Zosyn Consider check for PE ,u/s legs,CTA (3) Bronchiectasis: Status: Acute (4) Mycobacteria, atypical: Problem details: Some activity Status: Acute Po Azithromycin and aerosolized Tobramycin for 3-5 days probably (5) Tobacco use disorder: Status: Acute
[2020-10-26] MEDS: Omeprazole 20 MG CAPSULE.DR PO (13:51)
[2020-10-26] MEDS: Azithromycin 500 MG TABLET PO (13:51)
--- NOTE | 2020-10-26 14:21 | PM.CNPUL ---
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 Recently who did undergo bronchoscopy. He did tolerate therapeutic cleaning of the airways. Negative for cytology. His previous cultures were positive for strand of mycobacterium. The patient recently was admitted to the hospital with COVID-19. He was discharged on Augmentin and also doxycycline. Patient did very well. Did follow up as an outpatient in our pulmonary office. He was appearing to be doing well without any significant symptoms. Follow-up with starting the patient started developing fevers and chills in addition to worsening productive cough with yellowish sputum. The sputum is yellow in difficult to expectorate. Therefore based on the fevers and his worsening symptoms he was brought back to the ER. There he did undergo a repeat CT scan of the chest noncontrast demonstrating extensive cavitary disease which appears to be his baseline but ultimately worsening on the left upper lobe area with increasing cystic lesions suggesting potentially worsening of his mycobacteria disease. Current the patient feels a little better. Denies any more fevers. He was started on broad-spectrum antibiotics. Denies any hemoptysis. RUN: 10/26/20 1425 PAGE 1 [facility] [address] [place] [id number] Global Project Manager: Jonas Nice M.D. Specimen Inquiry Name: Cristi Baeza Age/Sex: 65/M : 1955 Unit#: [id number] Attend Dr: Guillermo Sosa MD Re08/28/20 Status: [facility] [place] Location: [facility] Disch: Specimen: [id number] Collected: 08/28/20-UNK Status: COMP Req#: [id number] Received: 08/28/20-1332 Source: Lung Sp Desc: BRUSH RLL Subm Dr: Guillermo Sosa MD Ordered: Acid-fast Cult Procedure Result Verified Site Acid-Fast Smear Final 09/02/20-1505 DPH Acid-Fast Smear No acid-fast bacilli seen. Testing performed at: [address] [address] Acid-Fast Culture Final 09/13/20-1510 DP CULTURE Report Date: 09/10/2020 Acid-fast organisms have been isolated from this specimen. Growth in liquid culture media at 11 days. IDENTIFICATION Report Date: 09/13/2020 The acid-fast organism has been identified by MALDI-TOF as Mycobacterium chimaera intracellulare group. If additional organisms are identified an amended report will be issued. Comment: This assay has not been cleared or approved by the U.S. Food and Drug Administration (FDA). This test was adopted for use and its performance characteristics determined by the [employer] of the Department of Public Health which is certified under the Clinical Laboratory Improvement Amendments of 1988 (CLIA-88) as qualified to perform high complexity clinical laboratory testing. DRUG SUSCEPTIBILITY DRUG SUSCEPTIBILITY TESTING WILL NOT BE DONE ON THIS CULTURE. Testing performed at: [address] [address] Results of POSITIVE ACID-FAST CULTURE called to LESLEY Singer on 09/13/20at 1505 by ELIECER. Review of Systems Constitutional: Constitutional: Reports fatigue and Reports fever(s) ENT: Denies change in voice, Denies lip swelling, Denies mouth pain, Reports nasal congestion, Reports nasal discharge and Denies tongue swelling Cardiovascular: Cardiovascular: Denies chest pain Respiratory: Respiratory: Reports change in phlegm color, Reports chest congestion, Reports cough and Denies hemoptysis Gastrointestinal: Gastrointestinal: Denies abdominal pain Musculoskeletal: Musculoskeletal: Denies no additional musculoskeletal complaints Neurologic: Denies Neuro-related abnormal movements Psychiatric: Psychiatric: Denies no additional psychiatric complaints Endocrine: Endocrine: Reports fatigue Hematologic/Lymphatic: Hematologic/Lymphatic: Denies easy bleeding and Denies lymphadenopathy Allergic/Immunologic: Allergic/Immunologic: Denies lip swelling and Denies tongue swelling PMFSH Past Medical History Medical History Asthma Bronchiectasis Cocaine abuse COPD (chronic obstructive pulmonary disease) COVID-19 virus infection Mycobacteria, atypical Pneumonia Respiratory failure with hypoxia and hypercapnia Family History Family History Other Family history non-contributory HTN (hypertension) Family history: reviewed and not pertinent Social History Social History Household Members: Significant Other Housing: Apartment Alcohol intake: never Smoking Status: Former smoker Second Hand Smoke Exposure: No Use of substances other than those prescribed or required for medical reasons: No Substance Use Type: Crack/Cocaine Currently Displaying Signs/Symptoms of Drug Intoxication Withdrawal: No Have you been hit, kicked, punched, or otherwise hurt by someone within the past year? If so, by whom?: No Do you feel safe in your current relationship?: Yes Is there a partner from a previous relationship who is making you feel unsafe now?: No Advance Directives: No Do you have thoughts of harming others: None Do you have a plan to hurt others: No Plan Recently lost weight without trying: No service: No Current occupational status: unemployed and retired Meds Allergies Allergy/AdvReac Type Severity Reaction Status Date / Time morphine [MORPHINE] Allergy Mild VOMITING Verified 10/23/20 09:48 Active Medications: Current Medications Generic Name Dose Route Start Last Admin Trade Name Freq PRN Reason Stop Dose Admin Acetaminophen 650 mg 10/25/20 23:38 10/26/20 13:51 Acetaminophen 325 Mg Tablet PO 650 mg Q6H PRN Administration Pain, Mild (Pain Scale 1-3) Albuterol Sulfate 2 puff 10/25/20 23:42 Albuterol Sulfate 90 Mcg 8 Gm Inhaler INHALE RQ4H PRN Shortness of Breath/Wheezing Aspirin 81 mg 10/26/20 09:00 10/26/20 10:14 Aspirin Enteric Coated 81 Mg Tablet.Dr PO 81 mg DAILY ALFONSO Administration Atorvastatin Calcium 20 mg 10/26/20 09:00 10/26/20 10:14 Atorvastatin Calcium 20 Mg Tablet PO 20 mg DAILY ALFONSO Administration Azithromycin 500 mg 10/26/20 14:00 10/26/20 13:51 Azithromycin 500 Mg Tablet PO 500 mg Q24H ALFONSO Administration Bupropion HCl 300 mg 10/27/20 09:00 Bupropion Hcl Xl 300 Mg Tab.Er.24h PO DAILY ALFONSO Docusate Sodium 100 mg 10/26/20 08:53 Docusate Sodium 100 Mg Capsule PO BID PRN constipation Enoxaparin Sodium 40 mg 10/26/20 00:00 10/26/20 02:44 Enoxaparin Sodium 40 Mg/0.4 Ml Syringe SUBCUT 40 mg Q24H ALFONSO Administration Ferrous Sulfate 324 mg 10/26/20 09:00 10/26/20 10:14 Ferrous Sulfate 324 Mg Tablet. PO 324 mg DAILY [facility] Administration Fluticasone/Vilanterol 1 puff 10/27/20 08:00 Fluticasone/Vilanterol 200/25 Blst.W.Dev INHALE RDAILY [facility] Gabapentin 300 mg 10/26/20 09:00 10/26/20 10:14 Gabapentin 300 Mg Capsule PO 300 mg TID [facility] Administration Insulin Human Lispro 0 unit 10/26/20 07:30 10/26/20 12:01 Insulin Lispro 100 Unit/Ml 3 Ml Vial SUBCUT 2 unit QIDACHS [facility] Administration Protocol Montelukast Sodium 10 mg 10/26/20 21:00 Montelukast Sodium 10 Mg Tablet PO BEDTIME [facility] Multivitamins/Vitamin C 1 tab 10/26/20 09:00 10/26/20 10:14 Multivitamin Tablet PO 1 tab DAILY [facility] Administration Omeprazole 20 mg 10/26/20 13:15 10/26/20 13:51 Omeprazole 20 Mg Capsule. PO 20 mg DAILY@0630 [facility] Administration Pharmacy Consult 1 each 10/25/20 23:34 Consult Rx Vancomycin Dosing MISCELLANE DAILY PRN Consult order Senna 8.6 mg 10/26/20 08:53 Sennosides 8.6 Mg Tablet PO BEDTIME PRN Constipation Sodium Chloride 3 ml 10/26/20 00:00 10/26/20 08:31 0.9 % Sodium Chloride Flush 3 Ml Syringe IVFLUSH 3 ml QSHIFT [facility] Administration Tobramycin Sulfate 300 mg 10/26/20 15:00 Tobramycin Sulfate 80 Mg/2 Ml Vial INHALE BID@0600,1800 [facility] Home Medications Medication Instructions Recorded Confirmed Last Taken Type Atrovent HFA 2 puff PO QID 06/01/20 10/26/20 Unknown History albuterol sulfate 2.5 mg INHALATION QID PRN 06/01/20 10/26/20 Unknown History aspirin 81 mg PO DAILY 06/01/20 10/26/20 Unknown History atorvastatin 20 mg PO DAILY 06/01/20 10/26/20 Unknown History montelukast 10 mg PO BEDTIME 06/01/20 10/26/20 Unknown History sildenafil [Viagra] 0.5 - 1 tab PO DAILY PRN 06/01/20 10/26/20 Unknown History bupropion HCl 150 mg PO BID 08/05/20 10/26/20 Unknown History ferrous sulfate 325 mg PO DAILY 08/05/20 10/26/20 Unknown History fluticasone propionate 2 spray INTRANASAL DAILY PRN 08/05/20 10/26/20 Unknown History ketoconazole 1 appl TOPICAL 2XW 08/05/20 10/26/20 Unknown History multivitamin 1 tab PO DAILY 08/05/20 10/26/20 Unknown History sennosides [senna] 1 tab PO BEDTIME PRN 08/05/20 10/26/20 Unknown History Incruse Ellipta 1 inh INHALATION DAILY 09/03/20 10/26/20 Unknown History Breo Ellipta 1 inh INHALATION DAILY 10/10/20 10/26/20 Unknown History docusate sodium 100 mg PO BID 10/10/20 10/26/20 Unknown History gabapentin 300 mg PO TID 10/10/20 10/26/20 Unknown History valsartan 40 mg PO DAILY 10/10/20 10/26/20 Unknown History Physical Exam Vital Signs: Vital Signs: Last Vital Signs Temp 97.8 F 10/26/20 11:16 Pulse 112 H 10/26/20 11:16 Resp 18 10/26/20 11:16 BP 107/64 10/26/20 11:16 Pulse Ox 96 10/26/20 11:16 Body Mass Index 17.3 Const: General: alert HENMT: General nose exam: Abnormal external nose present and Nasal discharge present Neck: Neck: Yes normal visual inspection, Yes full ROM and Yes no lymphadenopathy Chest: Chest palpation & inspection: normal inspection of the chest Resp: Auscultation: rhonchi and diminished lung sounds Cardio: Rate: regular rate Rhythm: regular rhythm Heart sounds: S1 normal heart sound present and S2 normal heart sound present GI: Palpation (GI): Soft to palpation and nontender Auscultation: normal bowel sounds : General: Yes no CVA tenderness Back/Spine/Pelvis: Back: no CVA tenderness Results Laboratory Findings CBC and BMP: 10/26/20 06:17 10/26/20 06:17 Abnormal lab findings: Abnormal Labs 10/25/20 10/25/20 10/26/20 19:48 19:48 06:17 WBC 27.3 H 30.3 H* RBC 3.69 L 3.40 L Hgb 10.7 L 9.7 L Hct 34.0 L 30.7 L RDW 19.9 H 19.9 H Plt Count 679 H 685 H MPV 9.2 L Immature Gran % (Auto) 0.8 H 0.8 H Neut % (Auto) 84.9 H 86.4 H Lymph % (Auto) 5.0 L 4.9 L Traverse # (Auto) 2.3 H 2.3 H Abs Immat Gran (auto) 0.21 H 0.25 H Absolute Neuts (auto) 23.2 H 26.2 H Sodium 133 L Chloride 85 L Carbon Dioxide 39 H Anion Gap POC Glucose Random Glucose 145 H Alkaline Phosphatase 126 H D C-Reactive Protein Albumin 3.3 L 10/26/20 10/26/20 10/26/20 06:17 07:55 11:14 WBC RBC Hgb Hct RDW Plt Count MPV Immature Gran % (Auto) Neut % (Auto) Lymph % (Auto) Traverse # (Auto) Abs Immat Gran (auto) Absolute Neuts (auto) Sodium 134 L Chloride 85 L Carbon Dioxide 33 H Anion Gap 21 H POC Glucose 124 H 162 H Random Glucose Alkaline Phosphatase C-Reactive Protein 30.32 H Albumin Assessment and Plan (1) HCAP (healthcare-associated pneumonia): Status: Acute (2) COPD exacerbation: Problem details: He has exacerbation without purulent sputum There is no lobar pneumonia or HCAP at this time Status: Acute (3) Bronchiectasis: Qualifiers: Bronchiectasis type: with acute lower respiratory infection Qualified Code(s): J47.0 - Bronchiectasis with acute lower respiratory infection Status: Acute (4) Mycobacteria, atypical: Problem details: Some activity Status: Acute The patient has extensive disease. Sputum culture to be sent Infectious disease assessing antibiotic options. He has tried and failed anti mycobacterial antibiotic therapies in the past due to adverse side effects. Trial inhaler antibiotics CPT with flutter valve. May benefit from a percussion vest for aggressive CPT and mucus clearance Hypertonic saline will also be helpful for CPT and some that he can do at home or once he is out of the COVID unit. Procedures Date of Service Date of Service: 10/26/20
[2020-10-26] MEDS: iohexoL 350 MG/ML 75 ML INFUS..BTL IV (17:08)
[2020-10-26 17:24] LABS: Glucose, Whole Blood 171 mg/dL (60-115)
--- NOTE | 2020-10-26 17:57 | PC.NURSE ---
Critical WBC of 30.3. Patient seen by infectious disease and pulmonary today. Sputum culture sent and pending. Patient's HR is improving, in the 110s for the majority of the day, sinus tachycardia. Hospitalist aware of HR and critical result. Patient underwent CTA. Patient received scheduled IV antibiotics. Patient asking for coffee frequently throughout the day; OK per Dr Moses to give decaf due to tachycardia. Patient also complaining of back pain, oxycodone ordered. No issues, no complaints offered.
[2020-10-26 20:54] LABS: Glucose, Whole Blood 95 mg/dL (60-115)
[2020-10-26] MEDS: Montelukast Sodium 10 MG TABLET PO (21:20)
[2020-10-26] MEDS: Albuterol Sulfate 90 MCG 8 GM INHALER 2 PUFF INHALE (21:25)
[2020-10-26] MEDS: oxyCODONE HCl Immed Release 5 MG TABLET PO (22:04)
[2020-10-27] VITALS (25 sets, daily range): BP systolic 70–138; BP diastolic 40–62; PULSE 105–146; RESP 18–22; TEMP 36.6–38; O2SAT 86–95
--- NOTE | 2020-10-27 | ECG_ITS ---
Test Reason : SOb Blood Pressure : / mmHG Vent. Rate : 127 BPM Atrial Rate : 127 BPM P-R Int : 114 ms QRS Dur : 078 ms QT Int : 296 ms P-R-T Axes : 080 -26 063 degrees QTc Int : 430 ms Sinus tachycardia Possible Left atrial enlargement Borderline ECG No significant changes when compared with the previous EKG of 25 october 2020 Referred By: Vidal Neely Electronically Signed By:CRISTINA SOLORZANO
[2020-10-27] MEDS: Albuterol Sulfate 90 MCG 8 GM INHALER 2 PUFF INHALE (00:46)
[2020-10-27] MEDS: ondansetron HCL 4 MG/2 ML VIAL IVPUSH (01:04)
--- NOTE | 2020-10-27 01:33 | PC.NURSE ---
Patient jumped out of bed, pulled O2 and heart monitor off to use bathroom. Patient vomited up moderate amount of charles sputum. Heart monitor placed back on patient, sinus tach, rate 150s. When placed back on O2 patient sat 78%, talley NC applied at 5L, patient recovered, sat now at 90%. Head Boys Golf Coach at bedside. Patient states he feels nauseous, Zofran administered. Patient states this happens at home and he does not need anything at this time. HR continues to be 140s-150s, Dr Neely notified, no new orders at this time. Patient sitting upright in bed, resting with eyes closed. Telesitter placed in room for safety.
[2020-10-27] MEDS: Acetaminophen 325 MG TABLET 650 MG PO ×2 (03:18→17:08)
[2020-10-27] MEDS: 0.9 % Sodium Chloride 500 ML 999 ML IV (04:40)
--- NOTE | 2020-10-27 04:46 | P.EN_ITS ---
Event Note Date of Service: 10/27/20 Event Note: Hypotension: Around 4:40 a.m. on 10/27/2020 iron: Mentioned that patient blood pressure was very low, manually 70/40. Patient was also drowsy. I went in and examined the patient, at the time of my examination-patient was alert awake and oriented x3. Denies any chest pain palpitations lightheadedness dizziness. Examination was benign, good peripheral pulses and good capillary refill. Ordered normal saline 500 cc bolus. Spoke to the RN to change the blood pre ssure cuff, according to the patient's built; When we checked the blood pressure was noted to be 88/ 45; will continue to monitor. Sent CT head and basic labs including D-dimer ABG shows PCO 82; Ph 7.3; pt compensating; Clinically not in discomfort; Pulm consult; spoke to RN for goal oxygen saturations between 90-93%. Patient continued to be tachycardic; which is a known diagnosis and chronic. Pending echocardiogram
[2020-10-27 04:51] LABS: Glucose, Whole Blood 144 mg/dL (60-115)
[2020-10-27 05:08] LABS: Hematocrit 27.3 % (42-52); Hemoglobin 8.5 g/dl (14.0-18.0); Mean Corpuscular HGB Conc 31.1 g/dl (31.0-36.0); Mean Corpuscular Hemoglobin 28.7 pg (27.0-33.0); Mean Corpuscular Volume 92.2 fL (80-98); Mean Platelet Volume 9.1 fL (9.4-12.4); Platelet Count 526 X10*3/uL (160-400); Red Blood Count 2.96 X10*6/uL (4.60-5.80); Red Cell Distribution Width 19.6 % (11.0-16.0); White Blood Count 24.5 X10*3/uL (4.8-10.8)
[2020-10-27 05:27] LABS: Lactic Acid 0.9 mmol/L (0.5-2.0)
[2020-10-27 05:33] LABS: Blood Urea Nitrogen 17 mg/dL (9-16); Calcium 7.9 mg/dL (8.4-10.2); Creatinine Clr Calc Pharmacy 58.1; Estimated Glomerular Filt Rate > 60; Glucose Random 132 mg/dL (60-115)
[2020-10-27 05:34] LABS: ABG Base Excess 13.1 mmol/L; ABG HCO3 42 mmol/L (22-26); ABG pCO2 82 mmHg (32-45); ABG pCO2 TC 82 mmHg (32-45); ABG pH 7.32 (7.35-7.45); ABG pH TC 7.32 (7.35-7.45); ABG pO2 94 mmHg (83-108); ABG pO2 TC 95 (83-108)
[2020-10-27 05:42] LABS: Anion Gap 13 (12-20); Carbon Dioxide 36 mmol/L (22-29); Chloride 92 mmol/L (96-108); Potassium 4.6 mmol/L (3.3-5.1); Sodium 136 mmol/L (135-145)
[2020-10-27] MEDS: Omeprazole 20 MG CAPSULE.DR PO (05:54)
[2020-10-27] MEDS: Tobramycin Sulfate 80 MG/2 ML VIAL 300 MG INHALE ×2 (05:59→17:22)
[2020-10-27 06:01] LABS: D Dimer 1332 NG/ML
[2020-10-27] MEDS: Fluticasone/Vilanterol 200/25 BLST.W.DEV 1 PUFF INHALE (06:07)
--- NOTE | 2020-10-27 06:10 | PC.NURSE ---
0440 Patient becoming increasingly drowsy, somewhat lethargic. Patient attempted to stand to use urinal, could not stand due to weakness. Manual BP in the 70s systolic, pedi cuff used on both arms. Automated BP reading between 70s-80s systolic. HR continues to be elevated, 120s-130s. Dr Neely called to bedside, due to concern for patient. EKG done, confirmed sinus tach. 500 NS bolus ordered and administered. Patient becoming more arousable when MD entered room. Mental Health Professional at bedside. Patient denies dizziness, or weakness. ABGs ordered, CO2 critical at 82. MD states to keep O2 sat between 90-93. Head CT and Chest xray ordered and completed. Patient not sitting up in bed watching tv, with no complaints. Last manual BP at 0615 was 82/50. MD notified of last BP.
[2020-10-27 06:33] LABS: ABG Refer to POC result
[2020-10-27 07:31] LABS: Glucose, Whole Blood 158 mg/dL (60-115)
[2020-10-27] MEDS: Multivitamin TABLET 1 TAB PO (07:39)
[2020-10-27] MEDS: Gabapentin 300 MG CAPSULE PO ×2 (07:39→14:44)
[2020-10-27] MEDS: Aspirin Enteric Coated 81 MG TABLET.DR PO (07:39)
[2020-10-27] MEDS: Ferrous Sulfate 324 MG TABLET.DR PO (07:39)
[2020-10-27] MEDS: Atorvastatin Calcium 20 MG TABLET PO (07:39)
[2020-10-27] MEDS: buPROPion HCl XL 300 MG TAB.ER.24H PO (07:39)
[2020-10-27] MEDS: 0.9 % Sodium Chloride Flush 3 ML SYRINGE IVFLUSH ×2 (07:39→22:58)
[2020-10-27 09:01] LABS: Vancomycin Trough < 3.0 mcg/mL (10.0-20.0)
[2020-10-27] MEDS: Ipratropium Bromide 0.5 MG/2.5 ML SOLUTION INHALE ×3 (11:08→19:19)
[2020-10-27 11:15] LABS: Glucose, Whole Blood 144 mg/dL (60-115)
--- NOTE | 2020-10-27 12:52 | P.PNIM_ITS ---
Subjective Subjective Date of Service: 10/27/20 Interval History: seen and examined this Am overnight events reviewed this Am, in his usual fashion -- tells me he feels fine. denies dizziness. ROS General - no fevers or chills Cardiovascular - no chest pain Respiratory - +sob Abdominal- no abdominal pain, nausea, vomiting, diarrhea; Physical Exam Vital Signs: Vital Signs: Last Vital Signs Temp 97.8 F 10/27/20 07:15 Pulse 121 H 10/27/20 12:35 Resp 22 H 10/27/20 07:15 BP 86/46 L 10/27/20 12:35 Pulse Ox 92 10/27/20 07:15 Body Mass Index 17.3 Const: Other: General - chronically ill-looking, cachectic Cardiovascular - regular rate and rhythm, S1-S2; tachycardic Lungs - dim sounds, scattered rhonchi Abdomen - soft, nontender, no rebound or guarding Extremities - no edema bilaterally Neuro - awake and alert, no focal deficits Objective Data Current Medications Generic Name Dose Route Start Last Admin Trade Name Isaiasq PRN Reason Stop Dose Admin Acetaminophen 650 mg 10/25/20 23:38 10/27/20 03:18 Acetaminophen 325 Mg Tablet PO 650 mg Q6H PRN Administration Pain, Mild (Pain Scale 1-3) Albuterol Sulfate 2 puff 10/25/20 23:42 10/27/20 00:46 Albuterol Sulfate 90 Mcg 8 Gm Inhaler INHALE 2 puff RQ4H PRN Administration Shortness of Breath/Wheezing Aspirin 81 mg 10/26/20 09:00 10/27/20 07:39 Aspirin Enteric Coated 81 Mg Tablet. PO 81 mg DAILY ALFONSO Administration Atorvastatin Calcium 20 mg 10/26/20 09:00 10/27/20 07:39 Atorvastatin Calcium 20 Mg Tablet PO 20 mg DAILY AL[facility]ONSO Administration Azithromycin 500 mg 10/26/20 14:00 10/26/20 13:51 Azithromycin 500 Mg Tablet PO 500 mg Q24H AL[facility]ONSO Administration Bupropion HCl 300 mg 10/27/20 09:00 10/27/20 07:39 Bupropion Hcl Xl 300 Mg Tab.Er.24h PO 300 mg DAILY ALFONSO Administration Docusate Sodium 100 mg 10/26/20 08:53 Docusate Sodium 100 Mg Capsule PO BID PRN constipation Enoxaparin Sodium 40 mg 10/26/20 00:00 10/26/20 23:52 Enoxaparin Sodium 40 Mg/0.4 Ml Syringe SUBCUT 40 mg Q24H AL[facility]ONSO Administration Ferrous Sulfate 324 mg 10/26/20 09:00 10/27/20 07:39 Ferrous Sulfate 324 Mg Tablet. PO 324 mg DAILY AL[facility]ONSO Administration Fluticasone/Vilanterol 1 puff 10/27/20 08:00 10/27/20 06:07 Fluticasone/Vilanterol 200/25 Blst.W.Dev INHALE 1 puff RDAILY [facility] Administration Gabapentin 300 mg 10/26/20 09:00 10/27/20 07:39 Gabapentin 300 Mg Capsule PO 300 mg TID ALFONSO Administration Sodium Chloride 1,000 mls @ 250 mls/hr 10/27/20 13:00 Ns IVCONT 10/27/20 16:59 .Q4H [facility] Insulin Human Lispro 0 unit 10/26/20 07:30 10/27/20 12:10 Insulin Lispro 100 Unit/Ml 3 Ml Vial SUBCUT Not Given QIDACHS [facility] Protocol Ipratropium Aurora 0.5 mg 10/27/20 12:00 10/27/20 11:08 Ipratropium Aurora 0.5 Mg/2.5 Ml Solution INHALE 0.5 mg RQ4H WHILE AWAKE ALFONSO Administration Levalbuterol HCl 1.25 mg 10/27/20 12:00 10/27/20 11:08 Levalbuterol Hcl 1.25 Mg/0.5 Ml Vial.Neb INHALE 1.25 mg RQ4H WHILE AWAKE AL[facility]ON[facility] Administration Montelukast Sodium 10 mg 10/26/20 21:00 10/26/20 21:20 Montelukast Sodium 10 Mg Tablet PO 10 mg BEDTIME AL[facility]ONSO Administration Multivitamins/Vitamin C 1 tab 10/26/20 09:00 10/27/20 07:39 Multivitamin Tablet PO 1 tab DAILY [facility] Administration Omeprazole 20 mg 10/26/20 13:15 10/27/20 05:54 Omeprazole 20 Mg Capsule. PO 20 mg DAILY@0630 [facility] Administration Ondansetron HCl 4 mg 10/27/20 00:48 10/27/20 01:04 Ondansetron Hcl 4 Mg/2 Ml Vial IVPUSH 4 mg Q8H PRN Administration Nausea and Vomiting Oxycodone HCl 5 mg 10/26/20 18:05 10/26/20 22:04 Oxycodone Hcl Immed Release 5 Mg Tablet PO 5 mg Q6H PRN Administration Pain, Severe (Pain Scale 7-10) Pharmacy Consult 1 each 10/25/20 23:34 Consult Rx Vancomycin Dosing MISCELLANE DAILY PRN Consult order Senna 8.6 mg 10/26/20 08:53 Sennosides 8.6 Mg Tablet PO BEDTIME PRN Constipation Sodium Chloride 3 ml 10/26/20 00:00 10/27/20 07:39 0.9 % Sodium Chloride Flush 3 Ml Syringe IVFLUSH 3 ml QSHIFT [facility] Administration Tobramycin Sulfate 300 mg 10/26/20 15:00 10/27/20 06:16 Tobramycin Sulfate 80 Mg/2 Ml Vial INHALE Not Given BID@0600,1800 [facility] Labs CBC & Chem 7: 10/27/20 04:58 10/27/20 04:58 Microbiology Microbiology Results: Microbiology 10/26/20 14:10 Sputum - Expectorated Gram Stain - Final 10/26/20 14:10 Sputum - Expectorated Sputum Culture - Preliminary Gram negative john 10/25/20 21:46 Blood - Venous Blood Culture - Preliminary No growth after 24 hours. 10/25/20 21:22 Blood - Venous Blood Culture - Preliminary No growth after 24 hours. Assessment and Plan (1) HCAP (healthcare-associated pneumonia): Status: Acute Assessment and Plan: 65-year-old male with a past medical history of COPD, treatment intolerant SYED, bronchiectasis, who was admitted to the hospital from to 10/15 to 10/18 when he was treated for COPD exacerbation and empirically treated with IV antibiotics. He was discharged home with a short course of antibiotics. He now returns the hospital with worsening SOB and reported low grade temperature at home (100 per the patient). He is admitted for further work up. 1. Acute on Chronic Respiratory Failure with hypoxia and hypercarbia multifactorial -- see details below Continue O2 with a saturation goal of 88-92; do not titrate o2 up if not below 88 2. Chronic COPD / SYED /Bronchiacatsis acute exacerbations of possibly all three hold off steroids, not wheezing start scheduled updrafts on Nebulized Tobramycin - day #2, per ID recs pulmonary on board 3. Orthostatic hypotension, Tachycardia supine BP in the 90s and standing dropping to 70s give 1L IVF and recheck orthostatics to see if they improve chronically tachycardic -- echo tomorrow and if needed cardiology consultation 4. Protein Calorie Malnutrition probably moderate will get nutrition evaluation tomorrow 5. Anemia chronic h/h dropping, suspect dilutional - no evdience of blood loss at this time check occult blood Full Code DVT pptx, Lovenox
[2020-10-27] MEDS: 0.9 % Sodium Chloride 1,000 ML 250 ML IVCONT (13:08)
[2020-10-27] MEDS: Azithromycin 500 MG TABLET PO (14:44)
--- NOTE | 2020-10-27 16:04 | MHC.CM.PN ---
VM MESSAGE LEFT FOR PTS HCP/SIGNIFICANT OTHER, JOSEFINA TILLMAN ([phone]) YESTERDAY AND ANOTHER WAS LEFT TODAY WITH THE ASSISTANCE OF [employer] BISQUE FINISHER OSVALDO (#[id number]). CM WILL ATTEMPT TO REACH JOSEFINA AGAIN TOMORROW WITH [facility]ORATORY DIAGNOSTICIAN. PER PTS RECENT ADMISSION AND EMR, HE LIVES WITH JOSEFINA AND HAS NO IN HOME SERVICES. UPON PTS LAST DISCHARGE, T/W REQUESTED [facility] COMPLETE A HOME EVALUATION TO DETERMINE IF THIS PT IS ELIGIBLE FOR SERVICES. CM WILL CONTACT [facility] LIAISON WEDNESDAY TO DETERMINE THE RESULTS OF THE EVAL. PT DOES HAVE HOME OXYGEN VIA [facility]. IMM DELIVERED VIA VM MESSAGE, COPY WILL BE SENT VIA CERTIFIED MAIL. CURRENTLY DC PLAN IS TBD PENDING PTS RECOVERY
[2020-10-27 16:22] LABS: Glucose, Whole Blood 131 mg/dL (60-115)
[2020-10-27] MEDS: oxyCODONE HCl Immed Release 5 MG TABLET PO (17:07)
[2020-10-27 20:41] LABS: Glucose, Whole Blood 177 mg/dL (60-115)
[2020-10-27] MEDS: Insulin Lispro 100 UNIT/ML 3 ML VIAL SUBCUT (22:58)
[2020-10-27] MEDS: Enoxaparin Sodium 40 MG/0.4 ML SYRINGE SUBCUT (22:58)
[2020-10-28] VITALS (34 sets, daily range): BP systolic 74–126; BP diastolic 46–67; PULSE 102–135; RESP 16–29; TEMP 36.6–38.3; O2SAT 88–98; BMI 17.3
--- NOTE | 2020-10-28 00:28 | PC.NURSE ---
Addendum entered by Mariposa Kam RN 10/28/20 06:00: 10/28/20 0530 Report given to Kenna in ICU. BP: 97/55. Pt still on BiPAP and awaiting transport. Addendum entered by Mariposa Kam RN 10/28/20 05:59: 10/28/20 @ 0445 Pt accepted as ICU transfer by MUD CAR WORKER. Awaiting room 252 to be cleaned. BP checks q.5min. Addendum entered by Mariposa Kam RN 10/28/20 05:56: 10/28/20 @ 0356 ABGs redrawn by RT per MD order. Results of ABGs received at 0420 with critical results: ph: 7.26, pCO2: 98, pO2: 116. MD notified at 0420. Pt is still lethargic and not very responsive. Rectal temp @ 0430 was 100.4. Addendum entered by Mariposa Kam RN 10/28/20 05:54: 10/28/20 0237 Pt placed on BiPAP per MD order. Pt still hypotensive, 80/52. ABGs to be redrawn in 1hr. Addendum entered by Mariposa Kam RN 10/28/20 02:07: 10/28/20 @ 0200 ABGs came back as critical: pH: 7.27, pCO2: 102, pO2: 66, HCO3: 45. MD notified, ordered BiPAP for 1 hour. RT will apply STAT. Pt lethargic, no complaints of discomfort. Original Note: 10/27/20 11:30pm: Patient found to be lethargic and difficult to arouse @ 11:30pm. Pt too drowsy to take PO medications. Temp noted to be 99.5 axillary. Pulse 134. Cold packs applied and MD notified. 10/28/20 12:30am: Rechecked pt's VS, temp elevated to 100.7 rectally, pulse 130, BP 80/50 manually, RR 18, o2 sat 92%. MD notified. MD ordered ABGs to be drawn. MD will order BiPap for 1hr if pt is still retaining CO2.
[2020-10-28 02:01] LABS: ABG Refer to POC result
[2020-10-28 02:02] LABS: ABG Base Excess 14.1 mmol/L; ABG HCO3 45 mmol/L (22-26); ABG pCO2 97 mmHg (32-45); ABG pCO2 TC 102 mmHg (32-45); ABG pH 7.27 (7.35-7.45); ABG pH TC 7.25 (7.35-7.45); ABG pO2 60 mmHg (83-108); ABG pO2 TC 66 (83-108)
[2020-10-28 04:18] LABS: ABG Refer to POC result
[2020-10-28 04:22] LABS: ABG Base Excess 13.7 mmol/L; ABG HCO3 44 mmol/L (22-26); ABG pCO2 96 mmHg (32-45); ABG pCO2 TC 98 mmHg (32-45); ABG pH 7.26 (7.35-7.45); ABG pH TC 7.26 (7.35-7.45); ABG pO2 113 mmHg (83-108); ABG pO2 TC 116 (83-108)
[2020-10-28] MEDS: Phenylephrine HCL 20 MG in 0.9 % Sodium Chloride 250 ML 34.64 MG IVCONT (06:03)
[2020-10-28 06:39] LABS: Hematocrit 27.8 % (42-52); Hemoglobin 8.3 g/dl (14.0-18.0); Mean Corpuscular HGB Conc 29.9 g/dl (31.0-36.0); Mean Corpuscular Hemoglobin 28.3 pg (27.0-33.0); Mean Corpuscular Volume 94.9 fL (80-98); Mean Platelet Volume 9.7 fL (9.4-12.4); Platelet Count 517 X10*3/uL (160-400); Red Blood Count 2.93 X10*6/uL (4.60-5.80); Red Cell Distribution Width 19.4 % (11.0-16.0); White Blood Count 21.1 X10*3/uL (4.8-10.8)
[2020-10-28 06:52] LABS: Blood Urea Nitrogen 9 mg/dL (9-16); Calcium 7.9 mg/dL (8.4-10.2); Creatinine Clr Calc Pharmacy 87.1; Estimated Glomerular Filt Rate > 60; Glucose Random 142 mg/dL (60-115)
[2020-10-28 07:10] LABS: Venous Blood Gas Refer to POC result
[2020-10-28 07:11] LABS: VBG Base Excess 17.4 mmol/L; VBG HCO3 42 mmol/L (22-26); VBG pCO2 53 mmHg; VBG pH 7.51 (7.32-7.43); VBG pO2 167 mmHg
[2020-10-28 07:12] LABS: Anion Gap 10 (12-20); Carbon Dioxide 39 mmol/L (22-29); Chloride 92 mmol/L (96-108); Potassium 4.9 mmol/L (3.3-5.1); Sodium 136 mmol/L (135-145)
--- NOTE | 2020-10-28 07:30 | CA_ITS ---
Transthoracic Echocardiogram Patient (Last, First, Middle): Cirsti Baeza, Gender: Male Date of : 1955 Age: 65 Procedure Date: 10/28/2020 Procedure Type: Transthoracic Echocardiogram Location: ICU Height: 162.56 cm Weight: 45.81 kg BSA: 1.46 m2 Heart Rate: bpm BP: 98 / 53 mmHg Retail Analyst: AVANI Referring MD: Jitendra Moses MD Symptoms: tachycardia Study Quality: Technically Difficult Conclusions: - Technically limited study. - Normal biventricular function. - Mild aortic valve stenosis. - Moderate pulmonary hypertension. Findings Left Ventricle Normal left ventricular size, thickness, and systolic function. Regional wall motion abnormalities can not be excluded due to suboptimal endocardial definition. Diastolic function is indeterminate on the basis of available data. Right Ventricle Normal right ventricular cavity size and systolic function. Atria The left atrium was not well visualized. The right atrium was not well visualized. Aortic Valve There is mild calcification of the aortic valve. There is mild thickening of the aortic valve. There is mild aortic valve stenosis. Mitral Valve Normal mitral valve structure and function. There is no mitral valve regurgitation. There is no mitral valve stenosis. Pulmonic Valve The pulmonic valve was not well visualized. Tricuspid Valve The tricuspid valve was not well visualized. Normal right atrial pressure. Moderate pulmonary hypertension is present. Great Vessels All visible segments of the aorta are normal in size. The pulmonary artery was not well visualized. Venous The inferior vena cava is normal in size and collapses greater than 50% with inspiration. Pericardium/Pleural There is no evidence of pericardial effusion. Prior Study Comparison Changes noted compared to prior study dated: 04/12/2019. Moderate pulmonary hypertension is present. Mild present. Measurements 2D Linear Measurements IVSd: 0.80 0.6-0.9/0.6-1.0 cm LVIDd: 3.66 3.9-5.3/4.2-5.9 cm LVIDd Index: 2.51 2.4-3.2/2.2-3.1 cm/m2 LVIDs: 2.69 2.0-3.6 cm LVPWd: 0.91 0.7-1.1 cm Ao Root: 2.80 2.1-3.5 cm LV Mass: 110.06 67-162/88-224 g LV Mass Index: 75.38 43-95/49-115 g/m2 LVOT Diam: 2.00 3.0+(-)1.3 cm Aortic Valve AoV Pk Tyree: 2.31 AoV Mn Tyree: 1.81 AoV VTI: 0.46 AoV Pk Grad: 21.00 Aov Mn Grad: 14.00 LES Cont.VTI: 1.13 LVOT LVOT Pk Tyree: 0.92 LVOT Mn Tyree: 0.66 LVOT VTI: 0.17 LVOT Pk Grad: 3.00 LVOT Mn Grad: 2.00 LVOT Diam: 2.00 LVOT Area: 3.14 Tricuspid Valve TR Pk Tyree: 3.42 TR Pk Grad: 47.00 RA Press: 3.00 RVSP: 50.00 Great Vessels Aorta Ao Root-2D: 2.80 2.0-3.7 cm Ao Asc: 2.80 2.1-3.4 cm Updated in Other Vendor System with Status of Final Joseph Uribe MD electronically signed on 10/28/2020 11:20:39 AM with status of Final
[2020-10-28] MEDS: buPROPion HCl XL 300 MG TAB.ER.24H PO (07:37)
[2020-10-28] MEDS: Aspirin Enteric Coated 81 MG TABLET.DR PO (07:37)
[2020-10-28] MEDS: Multivitamin TABLET 1 TAB PO (07:37)
[2020-10-28] MEDS: Gabapentin 300 MG CAPSULE PO (07:38)
[2020-10-28] MEDS: Ferrous Sulfate 324 MG TABLET.DR PO (07:38)
[2020-10-28] MEDS: Atorvastatin Calcium 20 MG TABLET PO (07:38)
[2020-10-28] MEDS: Tobramycin Sulfate 80 MG/2 ML VIAL 300 MG INHALE (07:39)
[2020-10-28] MEDS: Ipratropium Bromide 0.5 MG/2.5 ML SOLUTION INHALE (07:49)
[2020-10-28 07:50] LABS: Glucose, Whole Blood 134 mg/dL (60-115)
--- NOTE | 2020-10-28 10:23 | PC.NURSE ---
Report given to Jong RN at 0900. Patient initially this morning taken off of BiPap for trial and placed on 4LNC O2 sats dropped to 70's. BiPap replaced at 0900. RT will attempt to try high flow instead at 1000 per MD order. Patient able to speak full sentences with no dyspnea noted. RR 20. Course exp wheezes noted. ENC C+DB q 1 hour. Resp tx given by RT. Patient able to take am meds when Bipap changed to NC. Pt anxious about speaking with girlfirend. Will attempt to contact when placed on high flow. Insulin held this morning because of NPO status.
--- NOTE | 2020-10-28 10:28 | P.PNCC_ITS ---
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 Patient has been evaluated by infectious disease service and has been started on inhaled tobramycin and IV azithromycin. His hospital course was complicated by acute hypercapnic respira tory failure briefly requiring BiPAP support and transfer to intensive care unit. Now titrated of BiPAP. Physical Exam Vital Signs: Vital Signs: Last Vital Signs Temp 98.1 F 10/28/20 07:50 Pulse 121 H 10/28/20 08:00 Resp 22 H 10/28/20 10:00 BP 109/54 L 10/28/20 08:00 Pulse Ox 90 L 10/28/20 08:00 Body Mass Index 17.3 Const: General: no acute distress, alert and awake Eyes: Sclerae: sclerae normal EOM: EOMs intact bilaterally Neck: Neck: Yes no lymphadenopathy, Yes trachea midline and Yes supple Resp: Effort & Inspection: normal respiratory effort and no respiratory distress Auscultation: crackles on the right in the lower lung justice Cardio: Rate: regular rate Rhythm: regular rhythm Heart sounds: no gallops, no murmurs and no rubs GI: Palpation (GI): Soft to palpation and Other GI palpation findings present ( Nontender) Auscultation: normal bowel sounds Extrem: General: Yes no pedal edema, No clubbing and No cyanosis Objective Data Labs CBC & Chem 7: 10/28/20 05:33 10/28/20 05:33 Labs: Laboratory Results - last 24 hr 10/27/20 10/27/20 10/27/20 04:59 11:11 16:18 WBC RBC Hgb Hct MCV MCH MCHC RDW Plt Count MPV Absolute Nucleated RBC Nucleated RBC % (auto) O2 Saturation ABG pH at Pt Temp ABG pH (Temp Correct) ABG pCO2 at Pt Temp ABG pCO2 (Temp Corrct ABG pO2 at Pt Temp ABG pO2 (Temp Correct ABG HCO3 ABG Base Excess (Actual) VBG pH VBG pCO2 VBG pO2 VBG HCO3 VBG O2 Saturation VBG Base Excess Sodium Potassium Chloride Carbon Dioxide Anion Gap BUN Creatinine Estim Creat Clear Calc Estimated GFR POC Glucose 144 H 131 H Random Glucose Calcium NT-Pro-B Natriuret Pep Cancelled 10/27/20 10/28/20 10/28/20 20:35 01:52 04:14 WBC RBC Hgb Hct MCV MCH MCHC RDW Plt Count MPV Absolute Nucleated RBC Nucleated RBC % (auto) O2 Saturation 84.0 98.0 ABG pH at Pt Temp 7.27 L 7.26 L ABG pH (Temp Correct) 7.25 L 7.26 L ABG pCO2 at Pt Temp 97 H* 96 H* ABG pCO2 (Temp Corrct 102 H* 98 H* ABG pO2 at Pt Temp 60 L 113 H ABG pO2 (Temp Correct 66 L 116 H ABG HCO3 45 H 44 H ABG Base Excess (Actual) 14.1 13.7 VBG pH VBG pCO2 VBG pO2 VBG HCO3 VBG O2 Saturation VBG Base Excess Sodium Potassium Chloride Carbon Dioxide Anion Gap BUN Creatinine Estim Creat Clear Calc Estimated GFR POC Glucose 177 H Random Glucose Calcium NT-Pro-B Natriuret Pep 10/28/20 10/28/20 10/28/20 05:33 05:33 07:04 WBC 21.1 H RBC 2.93 L Hgb 8.3 L Hct 27.8 L MCV 94.9 MCH 28.3 MCHC 29.9 L RDW 19.4 H Plt Count 517 H MPV 9.7 Absolute Nucleated RBC 0.000 Nucleated RBC % (auto) 0.0 O2 Saturation ABG pH at Pt Temp ABG pH (Temp Correct) ABG pCO2 at Pt Temp ABG pCO2 (Temp Corrct ABG pO2 at Pt Temp ABG pO2 (Temp Correct ABG HCO3 ABG Base Excess (Actual) VBG pH 7.51 H VBG pCO2 53 VBG pO2 167 VBG HCO3 42 H VBG O2 Saturation 100.0 VBG Base Excess 17.4 Sodium 136 Potassium 4.9 Chloride 92 L Carbon Dioxide 39 H Anion Gap 10 L BUN 9 Creatinine 0.54 Estim Creat Clear Calc 87.1 Estimated GFR > 60 POC Glucose Random Glucose 142 H Calcium 7.9 L NT-Pro-B Natriuret Pep 10/28/20 07:23 WBC RBC Hgb Hct MCV MCH MCHC RDW Plt Count MPV Absolute Nucleated RBC Nucleated RBC % (auto) O2 Saturation ABG pH at Pt Temp ABG pH (Temp Correct) ABG pCO2 at Pt Temp ABG pCO2 (Temp Corrct ABG pO2 at Pt Temp ABG pO2 (Temp Correct ABG HCO3 ABG Base Excess (Actual) VBG pH VBG pCO2 VBG pO2 VBG HCO3 VBG O2 Saturation VBG Base Excess Sodium Potassium Chloride Carbon Dioxide Anion Gap BUN Creatinine Estim Creat Clear Calc Estimated GFR POC Glucose 134 H Random Glucose Calcium NT-Pro-B Natriuret Pep Microbiology Microbiology Results: Microbiology 10/26/20 14:10 Sputum - Expectorated Gram Stain - Final 10/26/20 14:10 Sputum - Expectorated Sputum Culture - Final Serratia marcescens 10/25/20 21:46 Blood - Venous Blood Culture - Preliminary No growth after 48 hours. 10/25/20 21:22 Blood - Venous Blood Culture - Preliminary No growth after 48 hours. Progress Note: A&P Assessment and plan (1) Acute and chronic respiratory failure with hypoxia: Status: Acute Assessment and Plan: Assessment: 65-year-old gentleman with underlying chronic SYED, bronchiectasis with multiple pneumonic exacerbation, supplemental oxygen at 2 L dependent COPD, admitted with acute on chronic hypoxic respiratory failure secondary to severe a she a pneumonia exacerbating underlying bronchiectasis and COPD, briefly requiring BiPAP support. Plan: Neuro: No acute issues. Cardiac: No acute issues. Pulmonary: Acute on chronic hypoxic and hypercapnic respiratory failure secondary to Serratia pneumonia exacerbation of underlying bronchiectasis. Titrated off BiPAP. Continue to titrate down to home level of supplemental oxygen which is 2 L continuous flow. Maintain O2 saturation of 88-92%, not higher than 93% secondary to underlying CO2 retention tendency. Renal: No acute issues. Endo: No acute issues. GI: No acute issues. ID: Infectious Disease service care appreciated. Continue on inhaled tobramycin and IV azithromycin. Heme/Onc: No acute issues. Psych: No acute issues. Miscellaneous: No acute issues. Prophylaxis: Lovenox, does not require GI prophylaxis Diet: Regular Critical care time spent: 60 minutes (2) COPD (chronic obstructive pulmonary disease): Status: Acute (3) Mycobacteria, atypical: Status: Acute (4) Supplemental oxygen dependent: Status: Acute (5) Bronchiectasis: Status: Acute (6) Pneumonia: Status: Acute Time Spent With Patient Total time spent with greater than 50% in coordination of care (as documented) at patient's floor/unit and/or counseling patient:: 0 Critical Care Time Critical Care Time (minutes): 60
--- NOTE | 2020-10-28 10:37 | MHC.CLN ---
PT IS MILDLY MALNOURISHED RECOMMEND ADDING ENSURE BID TO INCREASE KCALS SEE ALSO CLINICAL NUTRITION ASSESSMENT
[2020-10-28 11:17] LABS: Glucose, Whole Blood 125 mg/dL (60-115)
[2020-10-28] MEDS: Albuterol/Iprat 2.5/0.5MG 3 ML AMPUL.NEB INHALE ×2 (12:24→20:12)
[2020-10-28] MEDS: Metoprolol Tartrate 5 MG/5 ML VIAL 2.5 MG IVPUSH ×2 (12:50→19:03)
[2020-10-28] MEDS: Albumin Human 25 % 100 ML IV ×2 (13:41→17:57)
[2020-10-28] MEDS: LORazepam 2 MG/ML VIAL 0.5 MG IVPUSH (14:03)
[2020-10-28] MEDS: Azithromycin 500 MG TABLET PO (14:03)
--- NOTE | 2020-10-28 16:42 | PC.NURSE ---
Assumed care at 0900. Patient is alert and anxious, restless, saying he felt he was dying; also oriented x4. Patient was calmed and consoled and redirected, md notified, and new order for one time 0.5 mg IV ativan with good effect. Patient with bipap changed over to high flow right around 9 am, patient tolerated well. high flow now at 45% and 45 lpm; and efforts to titrate down were unsuccessful. Patient was able to stay off the bipap today. Patient with productive cough, greenish sputum, MD aware. Patient with lung sounds diminished and scattered rhonchi throughout, right lower lobe has inspiratory wheezes. Patient was feeling chest tightness with outbreaths; denied pain; denied palpitations; discussed with MD, ok to give duoneb early, discussed with rt, duoneb with good effect, patient reported feeling better . Patient with distant heart sounds. soft blood pressures: 90's/50's often, was on neosynephrine, which was titirated to off by 1230. Patient was on LR this morning, this was off by 12:00. Patient had been NPO for bipap, has low sodium diet ordered, per dr. barillas it was ok to give him clear liquids, had clear liquids for lunch. Patient with [place] catheter on, normally can stand at side of bed to urinate with urinal but tolerating this while he has tachycardia and high oxygen requirements. Patient was in sinus tachycardia with rate 115-125; after ricky was turned off, heart rate was 312-133; discussed with MD, and gave 2.5 mg of IV metoprolol with good effect and well tolerated. Patient with some low blood pressures while ricky off, map was still >65, but 87/50's, discussed with MD, and new order for albumin 25 gm x2, first bottle was given with good effect.
[2020-10-28 17:52] LABS: Glucose, Whole Blood 114 mg/dL (60-115)
[2020-10-28] MEDS: 0.9 % Sodium Chloride Flush 3 ML SYRINGE IVFLUSH ×2 (18:04→23:37)
[2020-10-28 20:46] LABS: Glucose, Whole Blood 103 mg/dL (60-115)
[2020-10-28] MEDS: LORazepam 2 MG/ML VIAL 1 MG IVPUSH (21:00)
[2020-10-28 22:40] LABS: ABG Refer to POC result
[2020-10-28 22:41] LABS: ABG Base Excess 19.6 mmol/L; ABG HCO3 48 mmol/L (22-26); ABG pCO2 83 mmHg (32-45); ABG pCO2 TC 80 mmHg (32-45); ABG pH 7.37 (7.35-7.45); ABG pH TC 7.38 (7.35-7.45); ABG pO2 74 mmHg (83-108); ABG pO2 TC 70 (83-108)
[2020-10-28] MEDS: Enoxaparin Sodium 40 MG/0.4 ML SYRINGE SUBCUT (23:37)
--- NOTE | 2020-10-28 23:37 | PC.RT ---
Cpap ordered per MD following ABG results. This RT attempted to place pt on CPAP with RN at bedside. Pt became extremely agitated, climbing out of bed desatting to 70s not following commands. Pt not allowing CPAP mask to be placed on him. Pt placed back on 5L NC and orally suctioned for thick creamy secretions. Pt settled down post suction sats back up to 90% with sat goal of 88-93%. MD notified.
[2020-10-29] VITALS (14 sets, daily range): BP systolic 90–135; BP diastolic 51–79; PULSE 106–128; RESP 18–35; TEMP 36.2–36.8; O2SAT 86–98
[2020-10-29] MEDS: diphenhydrAMINE HCL 50 MG/ML VIAL 25 MG IVPUSH (02:58)
[2020-10-29] MEDS: Tobramycin Sulfate 80 MG/2 ML VIAL 300 MG INHALE ×2 (06:15→17:30)
[2020-10-29] MEDS: Albuterol/Iprat 2.5/0.5MG 3 ML AMPUL.NEB INHALE ×3 (07:17→20:05)
[2020-10-29 07:18] LABS: Glucose, Whole Blood 94 mg/dL (60-115)
[2020-10-29 07:46] LABS: Hematocrit 26.3 % (42-52); Hemoglobin 8.1 g/dl (14.0-18.0); Mean Corpuscular HGB Conc 30.8 g/dl (31.0-36.0); Mean Corpuscular Hemoglobin 28.5 pg (27.0-33.0); Mean Corpuscular Volume 92.6 fL (80-98); Platelet Count 451 X10*3/uL (160-400); Red Blood Count 2.84 X10*6/uL (4.60-5.80); Red Cell Distribution Width 18.9 % (11.0-16.0); White Blood Count 16.4 X10*3/uL (4.8-10.8)
[2020-10-29 07:53] LABS: VBG Base Excess 26.6 mmol/L; VBG HCO3 55 mmol/L (22-26); VBG pCO2 83 mmHg; VBG pH 7.43 (7.32-7.43); VBG pO2 71 mmHg
[2020-10-29 07:53] LABS: Venous Blood Gas Refer to POC result
[2020-10-29 08:10] LABS: Blood Urea Nitrogen 7 mg/dL (9-16); Calcium 8.1 mg/dL (8.4-10.2); Estimated Glomerular Filt Rate > 60; Glucose Random 102 mg/dL (60-115)
[2020-10-29 08:20] LABS: Anion Gap 13 (12-20); Carbon Dioxide 43 mmol/L (22-29); Chloride 85 mmol/L (96-108); Potassium 5.3 mmol/L (3.3-5.1); Sodium 136 mmol/L (135-145)
[2020-10-29 08:48] LABS: ABG Base Excess 26.4 mmol/L; ABG HCO3 55 mmol/L (22-26); ABG pCO2 84 mmHg (32-45); ABG pCO2 TC 81 mmHg (32-45); ABG pH 7.42 (7.35-7.45); ABG pH TC 7.43 (7.35-7.45); ABG pO2 64 mmHg (83-108); ABG pO2 TC 61 (83-108)
--- NOTE | 2020-10-29 09:40 | HO.PM.IMPN ---
Subjective Subjective Date of Service: 10/29/20 Interval History: seen and examined this AM called by field staff to rpeort that the patient was in respiratory distress and hypoxic pt in visible distress, sats down the high 70s low 80s on NC. placed on HFNC and instructor watch assembly bed-side to evaluate the patient. saturations improved on HFNC as did resp. symptoms patient reported improved on HFNC Physical Exam Vital Signs: Vital Signs: Last Vital Signs Temp 97.4 F 10/29/20 07:42 Pulse 126 H 10/29/20 07:42 Resp 35 H 10/29/20 07:42 BP 96/63 10/29/20 07:42 Pulse Ox 86 L 10/29/20 07:42 Body Mass Index 17.3 Const: Other: General - chronically ill-looking, cachectic, in distress Cardiovascular - regular rate and rhythm, S1-S2; tachycardic Lungs - respiratory distress with dim sound and tachypnea in the 30s Abdomen - soft, nontender, no rebound or guarding Extremities - no edema bilaterally Neuro - awake and alert, no focal deficits Objective Data Current Medications Generic Name Dose Route Start Last Admin Trade Name Freq PRN Reason Stop Dose Admin Acetaminophen 650 mg 10/25/20 23:38 10/27/20 17:08 Acetaminophen 325 Mg Tablet PO 650 mg Q6H PRN Administration Pain, Mild (Pain Scale 1-3) Albuterol/Ipratropium 3 ml 10/28/20 08:00 10/29/20 07:17 Albuterol/Iprat 2.5/0.5mg 3 Ml Ampul.Neb INHALE 3 ml RQ6H WHILE AWAKE ALFONSO Administration Aspirin 81 mg 10/26/20 09:00 10/28/20 07:37 Aspirin Enteric Coated 81 Mg Tablet. PO 81 mg DAILY ALFONSO Administration Atorvastatin Calcium 20 mg 10/26/20 09:00 10/28/20 07:38 Atorvastatin Calcium 20 Mg Tablet PO 20 mg DAILY ALFONSO Administration Azithromycin 500 mg 10/26/20 14:00 10/28/20 14:03 Azithromycin 500 Mg Tablet PO 500 mg Q24H ALFONSO Administration Docusate Sodium 100 mg 10/26/20 08:53 Docusate Sodium 100 Mg Capsule PO BID PRN constipation Enoxaparin Sodium 40 mg 10/26/20 00:00 10/28/20 23:37 Enoxaparin Sodium 40 Mg/0.4 Ml Syringe SUBCUT 40 mg Q24H [facility] Administration Ferrous Sulfate 324 mg 10/26/20 09:00 10/28/20 07:38 Ferrous Sulfate 324 Mg Tablet. PO 324 mg DAILY ALFONSO Administration Insulin Human Lispro 0 unit 10/26/20 07:30 10/29/20 09:22 Insulin Lispro 100 Unit/Ml 3 Ml Vial SUBCUT Not Given QIDACHS [facility] Protocol Metoprolol Tartrate 2.5 mg 10/28/20 13:12 10/28/20 19:03 Metoprolol Tartrate 5 Mg/5 Ml Vial IVPUSH 2.5 mg Q6H PRN Administration tachycardia Multivitamins/Vitamin C 1 tab 10/26/20 09:00 10/28/20 07:37 Multivitamin Tablet PO 1 tab DAILY ALFONSO Administration Omeprazole 20 mg 10/26/20 13:15 10/29/20 05:40 Omeprazole 20 Mg Capsule. PO Not Given DAILY@0630 [facility] Ondansetron HCl 4 mg 10/27/20 00:48 10/27/20 01:04 Ondansetron Hcl 4 Mg/2 Ml Vial IVPUSH 4 mg Q8H PRN Administration Nausea and Vomiting Oxycodone HCl 5 mg 10/26/20 18:05 10/27/20 17:07 Oxycodone Hcl Immed Release 5 Mg Tablet PO 5 mg Q6H PRN Administration Pain, Severe (Pain Scale 7-10) Senna 8.6 mg 10/26/20 08:53 Sennosides 8.6 Mg Tablet PO BEDTIME PRN Constipation Sodium Chloride 3 ml 10/26/20 00:00 10/28/20 23:37 0.9 % Sodium Chloride Flush 3 Ml Syringe IVFLUSH 3 ml QSHIFT [facility] Administration Tobramycin Sulfate 300 mg 10/26/20 15:00 10/29/20 06:15 Tobramycin Sulfate 80 Mg/2 Ml Vial INHALE 300 mg BID@0600,1800 [facility] Administration Labs CBC & Chem 7: 10/29/20 07:34 10/29/20 07:34 Microbiology Microbiology Results: Microbiology 10/26/20 14:10 Sputum - Expectorated Gram Stain - Final 10/26/20 14:10 Sputum - Expectorated Sputum Culture - Final Serratia marcescens 10/25/20 21:46 Blood - Venous Blood Culture - Preliminary No growth after 48 hours. 10/25/20 21:22 Blood - Venous Blood Culture - Preliminary No growth after 48 hours. Assessment and Plan (1) HCAP (healthcare-associated pneumonia): Status: Inactive Assessment and Plan: 65-year-old male with a past medical history of COPD, treatment intolerant SYED, bronchiectasis, who was admitted to the hospital from to 10/15 to 10/18 when he was treated for COPD exacerbation and empirically treated with IV antibiotics. He was discharged home with a short course of antibiotics. He now returns the hospital with worsening SOB and reported low grade temperature at home (100 per the patient). He is admitted for further work up. 1. Acute on Chronic Respiratory Failure with hypoxia and hypercarbia multifactorial -- see details below Keep on HFNC -- goal 88-92 2. Acute on Chronic COPD / SYED /Bronchiacatsis / Serratia pneumonia acute exacerbations of all three start solu-medrol scheduled updrafts On INH Tobra - day #4; PO zithromax day #4 will d/w ID today re: antibiotic regime 3. Tachycardia Chronic, suspect compensation for his severe respiratory disease echo limited, but normal BiV function 4. Protein Calorie Malnutrition probably moderate nutrition eval 5. Anemia chronic h/h stable Full Code DVT pptx, Lovenox
[2020-10-29] MEDS: 0.9 % Sodium Chloride Flush 3 ML SYRINGE IVFLUSH ×3 (10:02→23:41)
[2020-10-29 11:23] LABS: Glucose, Whole Blood 98 mg/dL (60-115)
[2020-10-29] MEDS: Atorvastatin Calcium 20 MG TABLET PO (12:11)
[2020-10-29] MEDS: Aspirin Enteric Coated 81 MG TABLET.DR PO (12:11)
[2020-10-29] MEDS: Multivitamin TABLET 1 TAB PO (12:11)
[2020-10-29] MEDS: LORazepam 0.5 MG TABLET PO ×3 (12:11→22:09)
[2020-10-29] MEDS: Ferrous Sulfate 324 MG TABLET.DR PO (12:11)
--- NOTE | 2020-10-29 15:27 | PM.IDPN ---
Subjective Subjective Date of Service: 11/07/20 Interval History: he has Serratia marcescans sputum sensitive to Levaquin Objective Data Labs CBC & Chem 7: 10/31/20 05:58 10/31/20 05:58 Labs: Laboratory Results - last 24 hr 10/28/20 10/28/20 10/28/20 17:48 20:28 22:31 WBC RBC Hgb Hct MCV MCH MCHC RDW Plt Count MPV Absolute Nucleated RBC Nucleated RBC % (auto) O2 Saturation 92.0 ABG pH at Pt Temp 7.37 ABG pH (Temp Correct) 7.38 ABG pCO2 at Pt Temp 83 H* ABG pCO2 (Temp Corrct 80 H* ABG pO2 at Pt Temp 74 L ABG pO2 (Temp Correct 70 L ABG HCO3 48 H ABG Base Excess (Actual) 19.6 VBG pH VBG pCO2 VBG pO2 VBG HCO3 VBG O2 Saturation VBG Base Excess Sodium Potassium Chloride Carbon Dioxide Anion Gap BUN Creatinine Estim Creat Clear Calc Estimated GFR POC Glucose 114 103 Random Glucose Calcium 10/29/20 10/29/20 10/29/20 07:14 07:34 07:34 WBC 16.4 H RBC 2.84 L Hgb 8.1 L Hct 26.3 L MCV 92.6 MCH 28.5 MCHC 30.8 L RDW 18.9 H Plt Count 451 H MPV 9.0 L Absolute Nucleated RBC 0.000 Nucleated RBC % (auto) 0.0 O2 Saturation ABG pH at Pt Temp ABG pH (Temp Correct) ABG pCO2 at Pt Temp ABG pCO2 (Temp Corrct ABG pO2 at Pt Temp ABG pO2 (Temp Correct ABG HCO3 ABG Base Excess (Actual) VBG pH VBG pCO2 VBG pO2 VBG HCO3 VBG O2 Saturation VBG Base Excess Sodium 136 Potassium 5.3 H Chloride 85 L Carbon Dioxide 43 H* Anion Gap 13 BUN 7 L Creatinine 0.49 L Estim Creat Clear Calc 96.0 Estimated GFR > 60 POC Glucose 94 Random Glucose 102 Calcium 8.1 L 10/29/20 10/29/20 10/29/20 07:45 08:27 11:13 WBC RBC Hgb Hct MCV MCH MCHC RDW Plt Count MPV Absolute Nucleated RBC Nucleated RBC % (auto) O2 Saturation 91.0 ABG pH at Pt Temp 7.42 ABG pH (Temp Correct) 7.43 ABG pCO2 at Pt Temp 84 H* ABG pCO2 (Temp Corrct 81 H* ABG pO2 at Pt Temp 64 L ABG pO2 (Temp Correct 61 L ABG HCO3 55 H ABG Base Excess (Actual) 26.4 VBG pH 7.43 VBG pCO2 83 VBG pO2 71 VBG HCO3 55 H VBG O2 Saturation 94.0 VBG Base Excess 26.6 Sodium Potassium Chloride Carbon Dioxide Anion Gap BUN Creatinine Estim Creat Clear Calc Estimated GFR POC Glucose 98 Random Glucose Calcium Microbiology Microbiology Results: Microbiology 10/26/20 14:10 Sputum - Expectorated Gram Stain - Final 10/26/20 14:10 Sputum - Expectorated Sputum Culture - Final Serratia marcescens 10/25/20 21:46 Blood - Venous Blood Culture - Preliminary No growth after 48 hours. 10/25/20 21:22 Blood - Venous Blood Culture - Preliminary No growth after 48 hours. Physical Exam Vital Signs: Vital Signs: Last Vital Signs Temp 97.7 F 10/29/20 11:21 Pulse 128 H 10/29/20 13:22 Resp 20 10/29/20 15:15 BP 135/79 10/29/20 11:21 Pulse Ox 93 10/29/20 11:21 Body Mass Index 17.3 Const: General: cooperative HENMT: Head: Yes normal to inspection Mouth: Normal oral and palatal mucosa present Eyes: General: appearance normal, both eyes and all related structures Resp: Effort & Inspection: abnormal respiratory pattern and labored Cardio: Rate: regular rate Rhythm: regular rhythm GI: Palpation (GI): Soft to palpation and nontender Skin: General skin exam: no rashes or lesions noted Extrem: General: Yes muscle atrophy Assessment and Plan Assessment and plan (1) COPD exacerbation: Status: Acute Assessment and Plan: treat symptomatically (2) Serratia marcescens infection: Problem details: Day 11/27 Levaquin Status: Acute Assessment and Plan: Tobramycin and Levaquin po (3) SYED (mycobacterium avium-intracellulare): Problem details: Active Status: Acute Assessment and Plan: May continue Zmax abd aerosolized Tobramycin,10 doses total Time Spent With Patient Time: Total time spent is greater than 50% in coordination of care (as documented) at patient's floor/unit and/or counseling patient: Time with patient: 15 - 24 minutes
[2020-10-29 16:10] LABS: Glucose, Whole Blood 176 mg/dL (60-115)
[2020-10-29] MEDS: levoFLOXacin 750 MG TABLET PO (16:23)
[2020-10-29] MEDS: Azithromycin 500 MG TABLET PO (16:23)
[2020-10-29 19:35] LABS: Glucose, Whole Blood 154 mg/dL (60-115)
[2020-10-29] MEDS: Enoxaparin Sodium 40 MG/0.4 ML SYRINGE SUBCUT (23:41)
[2020-10-30] VITALS (12 sets, daily range): BP systolic 94–115; BP diastolic 52–70; PULSE 110–122; RESP 18–30; TEMP 36.4–36.8; O2SAT 91–95
[2020-10-30] MEDS: Tobramycin Sulfate 80 MG/2 ML VIAL 300 MG INHALE ×3 (05:30→19:32)
[2020-10-30] MEDS: Omeprazole 20 MG CAPSULE.DR PO (05:37)
[2020-10-30] MEDS: LORazepam 0.5 MG TABLET PO ×3 (05:37→20:58)
[2020-10-30] MEDS: Albuterol/Iprat 2.5/0.5MG 3 ML AMPUL.NEB INHALE ×3 (07:24→19:41)
[2020-10-30 07:34] LABS: Glucose, Whole Blood 104 mg/dL (60-115)
[2020-10-30] MEDS: Ferrous Sulfate 324 MG TABLET.DR PO (09:12)
[2020-10-30] MEDS: Aspirin Enteric Coated 81 MG TABLET.DR PO (09:12)
[2020-10-30] MEDS: Multivitamin TABLET 1 TAB PO (09:12)
[2020-10-30] MEDS: 0.9 % Sodium Chloride Flush 3 ML SYRINGE IVFLUSH ×3 (09:12→23:28)
[2020-10-30] MEDS: Atorvastatin Calcium 20 MG TABLET PO (09:12)
[2020-10-30 11:24] LABS: Hematocrit 26.2 % (42-52); Hemoglobin 8.4 g/dl (14.0-18.0); Mean Corpuscular HGB Conc 32.1 g/dl (31.0-36.0); Mean Corpuscular Hemoglobin 28.4 pg (27.0-33.0); Mean Corpuscular Volume 88.5 fL (80-98); Mean Platelet Volume 9.6 fL (9.4-12.4); Platelet Count 488 X10*3/uL (160-400); Red Blood Count 2.96 X10*6/uL (4.60-5.80); Red Cell Distribution Width 18.7 % (11.0-16.0); White Blood Count 17.1 X10*3/uL (4.8-10.8)
[2020-10-30 11:32] LABS: Glucose, Whole Blood 158 mg/dL (60-115)
--- NOTE | 2020-10-30 11:54 | MHC.CLN ---
F/U PO INTAKE FAIR TO GOOD DIET RX: REGULAR-APPROPRIATE NOTED FRAGILE SKIN PT RECEIVING 8OZ ENSURE TID TO INCREASE KCALS MONITOR PO AND WT CLOSELY
[2020-10-30 12:11] LABS: Anion Gap 13 (12-20); Blood Urea Nitrogen 9 mg/dL (9-16); Carbon Dioxide 40 mmol/L (22-29); Chloride 83 mmol/L (96-108); Estimated Glomerular Filt Rate > 60; Glucose Random 162 mg/dL (60-115); Potassium 4.6 mmol/L (3.3-5.1); Sodium 131 mmol/L (135-145)
--- NOTE | 2020-10-30 13:28 | MHC.CM.PN ---
DP [id number] DX HCAP TBD by the Pts recovery. He is on High flow oxygen. He may require STR. When apprpriate a PT eval will assist with dispo. CM will continue to follow.
[2020-10-30] MEDS: levoFLOXacin 750 MG TABLET PO (15:46)
[2020-10-30] MEDS: Azithromycin 500 MG TABLET PO (15:46)
--- NOTE | 2020-10-30 16:06 | P.PNIM_ITS ---
Subjective Subjective Date of Service: 10/30/20 Interval History: seen and examined AM with conference interpreter services patient tells me he feels better than last few days, but not great talked about code status with him and he tells me he wants to be full code. despite conference interpreter, not sure if he fully understands what this means ROS General - no fevers or chills Cardiovascular - no chest pain Respiratory - no shortness of breath or cough Abdominal- no abdominal pain, nausea, vomiting, diarrhea Physical Exam Vital Signs: Vital Signs: Last Vital Signs Temp 98.2 F 10/30/20 15:21 Pulse 119 H 10/30/20 15:21 Resp 25 H 10/30/20 15:21 BP 106/60 10/30/20 15:21 Pulse Ox 93 10/30/20 15:21 Body Mass Index 17.3 Const: Other: General - chronically ill-looking, cachectic, in distress Cardiovascular - regular rate and rhythm, S1-S2; tachycardic Lungs - respiratory distress with dim sound and tachypnea in the 30s Abdomen - soft, nontender, no rebound or guarding Extremities - no edema bilaterally Neuro - awake and alert, no focal deficits Objective Data Current Medications Generic Name Dose Route Start Last Admin Trade Name Freq PRN Reason Stop Dose Admin Acetaminophen 650 mg 10/25/20 23:38 10/27/20 17:08 Acetaminophen 325 Mg Tablet PO 650 mg Q6H PRN Administration Pain, Mild (Pain Scale 1-3) Albuterol/Ipratropium 3 ml 10/28/20 08:00 10/30/20 15:06 Albuterol/Iprat 2.5/0.5mg 3 Ml Ampul.Neb INHALE 3 ml RQ6H WHILE AWAKE ALFONSO Administration Aspirin 81 mg 10/26/20 09:00 10/30/20 09:12 Aspirin Enteric Coated 81 Mg Tablet. PO 81 mg DAILY AL[facility]SO Administration Atorvastatin Calcium 20 mg 10/26/20 09:00 10/30/20 09:12 Atorvastatin Calcium 20 Mg Tablet PO 20 mg DAILY AL[facility]ONSO Administration Azithromycin 500 mg 10/26/20 14:00 10/30/20 15:46 Azithromycin 500 Mg Tablet PO 500 mg Q24H [facility] Administration Docusate Sodium 100 mg 10/26/20 08:53 Docusate Sodium 100 Mg Capsule PO BID PRN constipation Enoxaparin Sodium 40 mg 10/26/20 00:00 10/29/20 23:41 Enoxaparin Sodium 40 Mg/0.4 Ml Syringe SUBCUT 40 mg Q24H [facility] Administration Ferrous Sulfate 324 mg 10/26/20 09:00 10/30/20 09:12 Ferrous Sulfate 324 Mg Tablet. PO 324 mg DAILY ALFONSO Administration Insulin Human Lispro 0 unit 10/26/20 07:30 10/30/20 12:08 Insulin Lispro 100 Unit/Ml 3 Ml Vial SUBCUT Not Given QIDACHS [facility] Protocol Levofloxacin 750 mg 10/29/20 16:00 10/30/20 15:46 Levofloxacin 750 Mg Tablet PO 750 mg Q24H [facility] Administration Lorazepam 0.5 mg 10/29/20 15:55 10/30/20 12:06 Lorazepam 0.5 Mg Tablet PO 0.5 mg Q6H PRN Administration Anxiety Methylprednisolone Sodium Succinate 40 mg 10/29/20 09:45 10/30/20 09:12 Methylprednisolone Sod Succ/Pf 40 Mg/Ml Vial IVPUSH 40 mg Q24H [facility] Administration Metoprolol Tartrate 2.5 mg 10/28/20 13:12 10/28/20 19:03 Metoprolol Tartrate 5 Mg/5 Ml Vial IVPUSH 2.5 mg Q6H PRN Administration tachycardia Multivitamins/Vitamin C 1 tab 10/26/20 09:00 10/30/20 09:12 Multivitamin Tablet PO 1 tab DAILY ALFONSO Administration Omeprazole 20 mg 10/26/20 13:15 10/30/20 05:37 Omeprazole 20 Mg Capsule. PO 20 mg DAILY@0630 [facility] Administration Ondansetron HCl 4 mg 10/27/20 00:48 10/27/20 01:04 Ondansetron Hcl 4 Mg/2 Ml Vial IVPUSH 4 mg Q8H PRN Administration Nausea and Vomiting Oxycodone HCl 5 mg 10/26/20 18:05 10/27/20 17:07 Oxycodone Hcl Immed Release 5 Mg Tablet PO 5 mg Q6H PRN Administration Pain, Severe (Pain Scale 7-10) Senna 8.6 mg 10/26/20 08:53 Sennosides 8.6 Mg Tablet PO BEDTIME PRN Constipation Sodium Chloride 3 ml 10/26/20 00:00 10/30/20 15:46 0.9 % Sodium Chloride Flush 3 Ml Syringe IVFLUSH 3 ml QSHIFT [facility] Administration Tobramycin Sulfate 300 mg 10/26/20 15:00 10/30/20 05:30 Tobramycin Sulfate 80 Mg/2 Ml Vial INHALE 10/31/20 06:01 300 mg BID@0600,1800 AL[facility]ONSO Administration Labs CBC & Chem 7: 10/30/20 11:02 10/30/20 11:02 Microbiology Microbiology Results: Microbiology 10/26/20 14:10 Sputum - Expectorated Gram Stain - Final 10/26/20 14:10 Sputum - Expectorated Sputum Culture - Final Serratia marcescens 10/25/20 21:46 Blood - Venous Blood Culture - Preliminary No growth after 48 hours. 10/25/20 21:22 Blood - Venous Blood Culture - Preliminary No growth after 48 hours. Assessment and Plan (1) HCAP (healthcare-associated pneumonia): Status: Inactive Assessment and Plan: 65-year-old male with a past medical history of COPD, treatment intolerant SYED, bronchiectasis, who was admitted to the hospital from to 10/15 to 10/18 when he was treated for COPD exacerbation and empirically treated with IV antibiotics. He was discharged home with a short course of antibiotics. He now returns the hospital with worsening SOB and reported low grade temperature at home (100 per the patient). He is admitted for further work up. 1. Acute on Chronic Respiratory Failure with hypoxia and hypercarbia multifactorial -- see details below Remains on HFNC -- goal 88-92 on Diamox at home, will restart 2. Acute on Chronic COPD / SYED /Bronchiacatsis / Serratia pneumonia acute exacerbations of all three solu-medrol day #2 scheduled updrafts On Tobra/Zmax -- 10 total doses each Levaquin day #2 (for Serratia) 3. Tachycardia Chronic, suspect compensation for his severe respiratory disease echo limited, but normal BiV function 4. Protein Calorie Malnutrition, Mild supplements 5. Anemia chronic h/h stable Full Code DVT pptx, Lovenox
[2020-10-30 16:18] LABS: Glucose, Whole Blood 231 mg/dL (60-115)
[2020-10-30] MEDS: Insulin Lispro 100 UNIT/ML 3 ML VIAL SUBCUT (16:32)
[2020-10-30 20:26] LABS: Glucose, Whole Blood 96 mg/dL (60-115)
[2020-10-30] MEDS: Enoxaparin Sodium 40 MG/0.4 ML SYRINGE SUBCUT (23:28)
[2020-10-31] VITALS (12 sets, daily range): BP systolic 99–137; BP diastolic 56–89; PULSE 90–131; RESP 18–35; TEMP 35.9–36.9; O2SAT 91–100
[2020-10-31] MEDS: LORazepam 0.5 MG TABLET PO ×2 (05:26→13:31)
[2020-10-31] MEDS: Omeprazole 20 MG CAPSULE.DR PO (05:26)
[2020-10-31 07:01] LABS: Hematocrit 28.3 % (42-52); Hemoglobin 9.1 g/dl (14.0-18.0); Mean Corpuscular HGB Conc 32.2 g/dl (31.0-36.0); Mean Corpuscular Hemoglobin 28.3 pg (27.0-33.0); Mean Corpuscular Volume 87.9 fL (80-98); Platelet Count 562 X10*3/uL (160-400); Red Blood Count 3.22 X10*6/uL (4.60-5.80); Red Cell Distribution Width 18.9 % (11.0-16.0); White Blood Count 16.5 X10*3/uL (4.8-10.8)
[2020-10-31 07:26] LABS: Anion Gap 15 (12-20); Blood Urea Nitrogen 14 mg/dL (9-16); Carbon Dioxide 38 mmol/L (22-29); Chloride 85 mmol/L (96-108); Creatinine Clr Calc Pharmacy 85.6; Estimated Glomerular Filt Rate > 60; Glucose Random 100 mg/dL (60-115); Potassium 4.4 mmol/L (3.3-5.1); Sodium 134 mmol/L (135-145)
[2020-10-31 07:34] LABS: Glucose, Whole Blood 97 mg/dL (60-115)
[2020-10-31] MEDS: Albuterol/Iprat 2.5/0.5MG 3 ML AMPUL.NEB INHALE ×3 (07:54→20:21)
[2020-10-31] MEDS: 0.9 % Sodium Chloride Flush 3 ML SYRINGE IVFLUSH ×2 (08:02→16:56)
[2020-10-31] MEDS: Aspirin Enteric Coated 81 MG TABLET.DR PO (08:02)
[2020-10-31] MEDS: Atorvastatin Calcium 20 MG TABLET PO (08:02)
[2020-10-31] MEDS: Multivitamin TABLET 1 TAB PO (08:02)
[2020-10-31] MEDS: acetaZOLAMIDE 250 MG TABLET PO (08:03)
[2020-10-31] MEDS: Ferrous Sulfate 324 MG TABLET.DR PO (08:03)
[2020-10-31] MEDS: Docusate Sodium 100 MG CAPSULE PO (08:06)
--- NOTE | 2020-10-31 10:56 | HO.PM.IMPN ---
Subjective Subjective Date of Service: 10/31/20 Interval History: seen and examined AM with RN, he is back on high flow and c/o stufiness in nose. ROS General - no fevers or chills Cardiovascular - no chest pain Respiratory - no shortness of breath or cough Abdominal- no abdominal pain, nausea, vomiting, diarrhea Physical Exam Vital Signs: Vital Signs: Last Vital Signs Temp 98.1 F 10/31/20 07:51 Pulse 119 H 10/31/20 07:54 Resp 28 H 10/31/20 07:54 BP 112/89 10/31/20 07:51 Pulse Ox 95 10/31/20 07:51 Body Mass Index 17.3 Const: Other: General - chronically ill-looking, cachectic, in distress Cardiovascular - regular rate and rhythm, S1-S2; tachycardic Lungs - respiratory distress with dim sound and tachypnea in the 30s Abdomen - soft, nontender, no rebound or guarding Extremities - no edema bilaterally Neuro - awake and alert, no focal deficits Objective Data Current Medications Generic Name Dose Route Start Last Admin Trade Name Isaiasq PRN Reason Stop Dose Admin Acetaminophen 650 mg 10/25/20 23:38 10/27/20 17:08 Acetaminophen 325 Mg Tablet PO 650 mg Q6H PRN Administration Pain, Mild (Pain Scale 1-3) Acetazolamide 250 mg 10/31/20 09:00 10/31/20 08:03 Acetazolamide 250 Mg Tablet PO 250 mg DAILY ALFONSO Administration Albuterol/Ipratropium 3 ml 10/28/20 08:00 10/31/20 07:54 Albuterol/Iprat 2.5/0.5mg 3 Ml Ampul.Neb INHALE 3 ml RQ6H WHILE AWAKE ALFONSO Administration Aspirin 81 mg 10/26/20 09:00 10/31/20 08:02 Aspirin Enteric Coated 81 Mg Tablet. PO 81 mg DAILY AL[facility]ONSO Administration Atorvastatin Calcium 20 mg 10/26/20 09:00 10/31/20 08:02 Atorvastatin Calcium 20 Mg Tablet PO 20 mg DAILY ALFONSO Administration Azithromycin 500 mg 10/26/20 14:00 10/30/20 15:46 Azithromycin 500 Mg Tablet PO 11/04/20 14:01 500 mg Q24H AL[facility]ONSO Administration Docusate Sodium 100 mg 10/26/20 08:53 10/31/20 08:06 Docusate Sodium 100 Mg Capsule PO 100 mg BID PRN Administration constipation Enoxaparin Sodium 40 mg 10/26/20 00:00 10/30/20 23:28 Enoxaparin Sodium 40 Mg/0.4 Ml Syringe SUBCUT 40 mg Q24H [facility] Administration Ferrous Sulfate 324 mg 10/26/20 09:00 10/31/20 08:03 Ferrous Sulfate 324 Mg Tablet. PO 324 mg DAILY ALFONSO Administration Insulin Human Lispro 0 unit 10/26/20 07:30 10/31/20 07:40 Insulin Lispro 100 Unit/Ml 3 Ml Vial SUBCUT Not Given QIDACHS [facility] Protocol Levofloxacin 750 mg 10/29/20 16:00 10/30/20 15:46 Levofloxacin 750 Mg Tablet PO 750 mg Q24H [facility] Administration Lorazepam 0.5 mg 10/29/20 15:55 10/31/20 05:26 Lorazepam 0.5 Mg Tablet PO 0.5 mg Q6H PRN Administration Anxiety Methylprednisolone Sodium Succinate 40 mg 10/29/20 09:45 10/31/20 08:02 Methylprednisolone Sod Succ/Pf 40 Mg/Ml Vial IVPUSH 40 mg Q24H [facility] Administration Metoprolol Tartrate 2.5 mg 10/28/20 13:12 10/28/20 19:03 Metoprolol Tartrate 5 Mg/5 Ml Vial IVPUSH 2.5 mg Q6H PRN Administration tachycardia Multivitamins/Vitamin C 1 tab 10/26/20 09:00 10/31/20 08:02 Multivitamin Tablet PO 1 tab DAILY ALFONSO Administration Omeprazole 20 mg 10/26/20 13:15 10/31/20 05:26 Omeprazole 20 Mg Capsule. PO 20 mg DAILY@0630 [facility] Administration Ondansetron HCl 4 mg 10/27/20 00:48 10/27/20 01:04 Ondansetron Hcl 4 Mg/2 Ml Vial IVPUSH 4 mg Q8H PRN Administration Nausea and Vomiting Oxycodone HCl 5 mg 10/26/20 18:05 10/27/20 17:07 Oxycodone Hcl Immed Release 5 Mg Tablet PO 5 mg Q6H PRN Administration Pain, Severe (Pain Scale 7-10) Senna 8.6 mg 10/26/20 08:53 Sennosides 8.6 Mg Tablet PO BEDTIME PRN Constipation Sodium Chloride 3 ml 10/26/20 00:00 10/31/20 08:02 0.9 % Sodium Chloride Flush 3 Ml Syringe IVFLUSH 3 ml QSHIFT ALFONSO Administration Labs CBC & Chem 7: 10/31/20 05:58 10/31/20 05:58 Microbiology Microbiology Results: Microbiology 10/25/20 21:46 Blood - Venous Blood Culture - Final No growth after 5 days. 10/25/20 21:22 Blood - Venous Blood Culture - Final No growth after 5 days. 10/26/20 14:10 Sputum - Expectorated Gram Stain - Final 10/26/20 14:10 Sputum - Expectorated Sputum Culture - Final Serratia marcescens Assessment and Plan (1) HCAP (healthcare-associated pneumonia): Status: Inactive Assessment and Plan: 65-year-old male with a past medical history of COPD, treatment intolerant SYED, bronchiectasis, who was admitted to the hospital from to 10/15 to 10/18 when he was treated for COPD exacerbation and empirically treated with IV antibiotics. He was discharged home with a short course of antibiotics. He now returns the hospital with worsening SOB and reported low grade temperature at home (100 per the patient). He is admitted for further work up. 1. Acute on Chronic Respiratory Failure with hypoxia and hypercarbia multifactorial -- see details below Remains on HFNC -- goal 88-92 2. Acute on Chronic COPD / SYED /Bronchiacatsis / Serratia pneumonia acute exacerbations of all three solu-medrol day #3 scheduled updrafts On Tobra/Zmax -- 10 total doses each Levaquin day #3 (for Serratia) 3. Tachycardia Chronic, suspect compensation for his severe respiratory disease echo limited, but normal BiV function 4. Protein Calorie Malnutrition, moderate to severe supplements 5. Anemia chronic h/h stable Full Code DVT pptx, Lovenox
[2020-10-31 11:23] LABS: Glucose, Whole Blood 127 mg/dL (60-115)
[2020-10-31] MEDS: Azithromycin 500 MG TABLET PO (13:31)
[2020-10-31 16:54] LABS: Glucose, Whole Blood 218 mg/dL (60-115)
[2020-10-31] MEDS: levoFLOXacin 750 MG TABLET PO (16:55)
[2020-10-31] MEDS: Insulin Lispro 100 UNIT/ML 3 ML VIAL SUBCUT (16:57)
[2020-10-31 20:05] LABS: Glucose, Whole Blood 143 mg/dL (60-115)
[2020-11-01] VITALS (12 sets, daily range): BP systolic 99–132; BP diastolic 60–78; PULSE 105–128; RESP 16–24; TEMP 36.1–36.7; O2SAT 92–97
[2020-11-01] MEDS: Acetaminophen 325 MG TABLET 650 MG PO ×2 (04:25→10:29)
[2020-11-01] MEDS: Omeprazole 20 MG CAPSULE.DR PO (05:34)
[2020-11-01 07:29] LABS: Glucose, Whole Blood 95 mg/dL (60-115)
[2020-11-01] MEDS: Albuterol/Iprat 2.5/0.5MG 3 ML AMPUL.NEB INHALE ×3 (07:40→20:30)
[2020-11-01] MEDS: 0.9 % Sodium Chloride Flush 3 ML SYRINGE IVFLUSH ×3 (09:22→16:00)
[2020-11-01] MEDS: acetaZOLAMIDE 250 MG TABLET PO (09:23)
[2020-11-01] MEDS: Ferrous Sulfate 324 MG TABLET.DR PO (09:23)
[2020-11-01] MEDS: Multivitamin TABLET 1 TAB PO (09:23)
[2020-11-01] MEDS: Aspirin Enteric Coated 81 MG TABLET.DR PO (09:23)
[2020-11-01] MEDS: Atorvastatin Calcium 20 MG TABLET PO (09:23)
--- NOTE | 2020-11-01 11:01 | MHC.CLN ---
F/U PO INTAKE 25% DIET RX: REGULAR-APPROPRIATE PT RECEIVING 8OZ ENSURE TID PROVIDES 1050KCALS (76% EST KCALS NEEDS), 60G PROTEIN (1.3G/KG) MONITOR PO AND WT CLOSELY
[2020-11-01 11:42] LABS: Glucose, Whole Blood 209 mg/dL (60-115)
[2020-11-01] MEDS: LORazepam 0.5 MG TABLET PO (11:54)
[2020-11-01] MEDS: Insulin Lispro 100 UNIT/ML 3 ML VIAL SUBCUT ×2 (11:54→16:48)
[2020-11-01] MEDS: Azithromycin 500 MG TABLET PO (13:35)
--- NOTE | 2020-11-01 14:07 | HO.PM.IMPN ---
Subjective Subjective Date of Service: 11/01/20 Interval History: seen and examined AM with RN, he is back on high flow, c/o poor apetite and wants intravenous feeding ROS General - no fevers or chills Cardiovascular - no chest pain Respiratory - no shortness of breath or cough Abdominal- no abdominal pain, nausea, vomiting, diarrhea Physical Exam Vital Signs: Vital Signs: Last Vital Signs Temp 98.0 F 11/01/20 12:00 Pulse 123 H 11/01/20 13:18 Resp 24 H 11/01/20 12:00 BP 129/72 11/01/20 12:00 Pulse Ox 97 11/01/20 12:00 Body Mass Index 17.3 Const: Other: General - chronically ill-looking, cachectic, in distress Cardiovascular - regular rate and rhythm, S1-S2; tachycardic Lungs - respiratory distress with dim sound and tachypnea in the 30s Abdomen - soft, nontender, no rebound or guarding Extremities - no edema bilaterally Neuro - awake and alert, no focal deficits Objective Data Current Medications Generic Name Dose Route Start Last Admin Trade Name Jesus Alberto PRN Reason Stop Dose Admin Acetaminophen 650 mg 10/25/20 23:38 11/01/20 10:29 Acetaminophen 325 Mg Tablet PO 650 mg Q6H PRN Administration Pain, Mild (Pain Scale 1-3) Acetazolamide 250 mg 10/31/20 09:00 11/01/20 09:23 Acetazolamide 250 Mg Tablet PO 250 mg DAILY ALFONSO Administration Albuterol/Ipratropium 3 ml 10/28/20 08:00 11/01/20 13:14 Albuterol/Iprat 2.5/0.5mg 3 Ml Ampul.Neb INHALE 3 ml RQ6H WHILE AWAKE ALFONSO Administration Aspirin 81 mg 10/26/20 09:00 11/01/20 09:23 Aspirin Enteric Coated 81 Mg Tablet. PO 81 mg DAILY ALFONSO Administration Atorvastatin Calcium 20 mg 10/26/20 09:00 11/01/20 09:23 Atorvastatin Calcium 20 Mg Tablet PO 20 mg DAILY ALFONSO Administration Azithromycin 500 mg 10/26/20 14:00 11/01/20 13:35 Azithromycin 500 Mg Tablet PO 11/04/20 14:01 500 mg Q24H ALFONSO Administration Docusate Sodium 100 mg 10/26/20 08:53 10/31/20 08:06 Docusate Sodium 100 Mg Capsule PO 100 mg BID PRN Administration constipation Enoxaparin Sodium 40 mg 10/26/20 00:00 11/01/20 00:00 Enoxaparin Sodium 40 Mg/0.4 Ml Syringe SUBCUT 40 mg Q24H [facility] Administration Ferrous Sulfate 324 mg 10/26/20 09:00 11/01/20 09:23 Ferrous Sulfate 324 Mg Tablet. PO 324 mg DAILY ALFONSO Administration Insulin Human Lispro 0 unit 10/26/20 07:30 11/01/20 11:54 Insulin Lispro 100 Unit/Ml 3 Ml Vial SUBCUT 4 unit QIDACHS [facility] Administration Protocol Levofloxacin 750 mg 10/29/20 16:00 10/31/20 16:55 Levofloxacin 750 Mg Tablet PO 750 mg Q24H [facility] Administration Lorazepam 0.5 mg 10/29/20 15:55 11/01/20 11:54 Lorazepam 0.5 Mg Tablet PO 0.5 mg Q6H PRN Administration Anxiety Methylprednisolone Sodium Succinate 40 mg 10/29/20 09:45 11/01/20 09:23 Methylprednisolone Sod Succ/Pf 40 Mg/Ml Vial IVPUSH 40 mg Q24H ALFONSO Administration Metoprolol Tartrate 2.5 mg 10/28/20 13:12 10/28/20 19:03 Metoprolol Tartrate 5 Mg/5 Ml Vial IVPUSH 2.5 mg Q6H PRN Administration tachycardia Multivitamins/Vitamin C 1 tab 10/26/20 09:00 11/01/20 09:23 Multivitamin Tablet PO 1 tab DAILY [facility] Administration Omeprazole 20 mg 10/26/20 13:15 11/01/20 05:34 Omeprazole 20 Mg Capsule. PO 20 mg DAILY@0630 [facility] Administration Ondansetron HCl 4 mg 10/27/20 00:48 10/27/20 01:04 Ondansetron Hcl 4 Mg/2 Ml Vial IVPUSH 4 mg Q8H PRN Administration Nausea and Vomiting Senna 8.6 mg 10/26/20 08:53 Sennosides 8.6 Mg Tablet PO BEDTIME PRN Constipation Sodium Chloride 3 ml 10/26/20 00:00 11/01/20 09:22 0.9 % Sodium Chloride Flush 3 Ml Syringe IVFLUSH 3 ml QSHIFT [facility] Administration Labs CBC & Chem 7: 10/31/20 05:58 10/31/20 05:58 Microbiology Microbiology Results: Microbiology 10/25/20 21:46 Blood - Venous Blood Culture - Final No growth after 5 days. 10/25/20 21:22 Blood - Venous Blood Culture - Final No growth after 5 days. 10/26/20 14:10 Sputum - Expectorated Gram Stain - Final 10/26/20 14:10 Sputum - Expectorated Sputum Culture - Final Serratia marcescens Assessment and Plan (1) HCAP (healthcare-associated pneumonia): Status: Inactive Assessment and Plan: 65-year-old male with a past medical history of COPD, treatment intolerant SYED, bronchiectasis, who was admitted to the hospital from to 10/15 to 10/18 when he was treated for COPD exacerbation and empirically treated with IV antibiotics. He was discharged home with a short course of antibiotics. He now returns the hospital with worsening SOB and reported low grade temperature at home (100 per the patient). He is admitted for further work up. 1. Acute on Chronic Respiratory Failure with hypoxia and hypercarbia multifactorial -- see details below Remains on HFNC -- goal 88-92 2. Acute on Chronic COPD / SYED /Bronchiacatsis / Serratia pneumonia acute exacerbations of all three solu-medrol day #3 scheduled updrafts On Tobra/Zmax -- 10 total doses each Levaquin day #3 (for Serratia) 3. Tachycardia Chronic, suspect compensation for his severe respiratory disease echo limited, but normal BiV function 4. Protein Calorie Malnutrition, moderate to severe supplements Megace and consider a PEG 5. Anemia chronic h/h stable Full Code DVT pptx, Lovenox
--- NOTE | 2020-11-01 14:09 | MHC.CM.PN ---
DP MALE 65 DX HCAP DC PLAN TBD BY [facility]. HE MAY REQUIRE PEG PLACEMENT. CM WILL FOLLOW.
--- NOTE | 2020-11-01 15:06 | P.PNID_ITS ---
Subjective Subjective Date of Service: 11/07/20 Interval History: he has worsening respiratory failure He is on high flow He has serratia marcescans sputum He has SYED Objective Data Labs CBC & Chem 7: 10/31/20 05:58 10/31/20 05:58 Labs: Laboratory Results - last 24 hr 10/31/20 10/31/20 11/01/20 16:51 19:49 07:13 POC Glucose 218 H 143 H 95 11/01/20 11:15 POC Glucose 209 H Microbiology Microbiology Results: Microbiology 10/25/20 21:46 Blood - Venous Blood Culture - Final No growth after 5 days. 10/25/20 21:22 Blood - Venous Blood Culture - Final No growth after 5 days. 10/26/20 14:10 Sputum - Expectorated Gram Stain - Final 10/26/20 14:10 Sputum - Expectorated Sputum Culture - Final Serratia marcescens Physical Exam 2 Vital Signs: Vital Signs: Last Vital Signs Temp 98.0 F 11/01/20 12:00 Pulse 123 H 11/01/20 13:18 Resp 24 H 11/01/20 12:00 BP 129/72 11/01/20 12:00 Pulse Ox 97 11/01/20 12:00 Body Mass Index 17.3 Const: General: cooperative HENMT: Head: Yes normal to inspection Mouth: Normal oral and palatal mucosa present Resp: Effort & Inspection: normal respiratory effort Cardio: Rate: regular rate Rhythm: regular rhythm GI: Palpation (GI): Soft to palpation and nontender Skin: General skin exam: no rashes or lesions noted Assessment and Plan Assessment and plan (1) Serratia marcescens infection: Problem details: Day 11/27 Levaquin Status: Acute (2) SYED (mycobacterium avium-intracellulare): Problem details: Active Status: Acute Assessment and Plan: Continue Azithromycin for now,duration on discharge per Pulmonary (3) Supplemental oxygen dependent: Status: Acute Time Spent With Patient Time: Total time spent is greater than 50% in coordination of care (as documented) at patient's floor/unit and/or counseling patient: Time with patient: 15 - 24 minutes
[2020-11-01] MEDS: levoFLOXacin 750 MG TABLET PO (16:00)
[2020-11-01 16:40] LABS: Glucose, Whole Blood 216 mg/dL (60-115)
[2020-11-01 20:16] LABS: Glucose, Whole Blood 93 mg/dL (60-115)
[2020-11-01] MEDS: Enoxaparin Sodium 40 MG/0.4 ML SYRINGE SUBCUT ×2 (23:59)
[2020-11-02] VITALS (9 sets, daily range): BP systolic 89–109; BP diastolic 50–72; PULSE 90–112; RESP 18–23; TEMP 36.2–36.4; O2SAT 95–100
[2020-11-02] MEDS: 0.9 % Sodium Chloride Flush 3 ML SYRINGE IVFLUSH ×4 (00:02→23:02)
[2020-11-02] MEDS: LORazepam 0.5 MG TABLET PO ×3 (03:02→16:00)
[2020-11-02] MEDS: Omeprazole 20 MG CAPSULE.DR PO (05:59)
[2020-11-02 07:21] LABS: Glucose, Whole Blood 113 mg/dL (60-115)
[2020-11-02] MEDS: Albuterol/Iprat 2.5/0.5MG 3 ML AMPUL.NEB INHALE ×3 (08:27→20:01)
[2020-11-02] MEDS: Aspirin Enteric Coated 81 MG TABLET.DR PO (08:46)
[2020-11-02] MEDS: Ferrous Sulfate 324 MG TABLET.DR PO (08:46)
[2020-11-02] MEDS: Atorvastatin Calcium 20 MG TABLET PO (08:46)
[2020-11-02] MEDS: acetaZOLAMIDE 250 MG TABLET PO (08:46)
[2020-11-02] MEDS: Multivitamin TABLET 1 TAB PO (08:46)
--- NOTE | 2020-11-02 10:57 | P.PNIM_ITS ---
Subjective Subjective Date of Service: 11/02/20 Interval History: Seen in f/u for acute hypoxic respiratory failure due to SYED evita PNA, he has been on high flow oxygen but has been downgraded to nasal cannula Review of Systems Gen: no fever Resp: +o sob, no cough CV: no chest, no KHAN, no leg edema GI: No n/v, no abd pain Neuro: No confusion Physical Exam Vital Signs: Vital Signs: Last Vital Signs Temp 97.6 F 11/02/20 07:12 Pulse 112 H 11/02/20 07:12 Resp 23 H 11/02/20 07:12 BP 96/62 11/02/20 07:12 Pulse Ox 96 11/02/20 07:12 Body Mass Index 17.3 Const: Other: General - chronically ill-looking, cachectic, no distress, more confortable today Cardiovascular - regular rate and rhythm, S1-S2; tachycardic Lungs - respiratory distress with dim sound and tachypnea in the 30s Abdomen - soft, nontender, no rebound or guarding Extremities - no edema bilaterally Neuro - awake and alert, no focal deficits Objective Data Current Medications Generic Name Dose Route Start Last Admin Trade Name Freq PRN Reason Stop Dose Admin Acetaminophen 650 mg 10/25/20 23:38 11/01/20 10:29 Acetaminophen 325 Mg Tablet PO 650 mg Q6H PRN Administration Pain, Mild (Pain Scale 1-3) Acetazolamide 250 mg 10/31/20 09:00 11/02/20 08:46 Acetazolamide 250 Mg Tablet PO 250 mg DAILY ALFONSO Administration Albuterol/Ipratropium 3 ml 10/28/20 08:00 11/02/20 08:27 Albuterol/Iprat 2.5/0.5mg 3 Ml Ampul.Neb INHALE 3 ml RQ6H WHILE AWAKE ALFONSO Administration Aspirin 81 mg 10/26/20 09:00 11/02/20 08:46 Aspirin Enteric Coated 81 Mg Tablet. PO 81 mg DAILY AL[facility]ON[facility] Administration Atorvastatin Calcium 20 mg 10/26/20 09:00 11/02/20 08:46 Atorvastatin Calcium 20 Mg Tablet PO 20 mg DAILY [facility] Administration Azithromycin 500 mg 10/26/20 14:00 11/01/20 13:35 Azithromycin 500 Mg Tablet PO 11/04/20 14:01 500 mg Q24H [facility]ONSO Administration Docusate Sodium 100 mg 10/26/20 08:53 10/31/20 08:06 Docusate Sodium 100 Mg Capsule PO 100 mg BID PRN Administration constipation Enoxaparin Sodium 40 mg 10/26/20 00:00 11/01/20 23:59 Enoxaparin Sodium 40 Mg/0.4 Ml Syringe SUBCUT 40 mg Q24H [facility] Administration Ferrous Sulfate 324 mg 10/26/20 09:00 11/02/20 08:46 Ferrous Sulfate 324 Mg Tablet. PO 324 mg DAILY AL[facility]ONSO Administration Insulin Human Lispro 0 unit 10/26/20 07:30 11/02/20 07:42 Insulin Lispro 100 Unit/Ml 3 Ml Vial SUBCUT Not Given QIDACHS [facility] Protocol Levofloxacin 750 mg 10/29/20 16:00 11/01/20 16:00 Levofloxacin 750 Mg Tablet PO 750 mg Q24H [facility] Administration Lorazepam 0.5 mg 10/29/20 15:55 11/02/20 09:18 Lorazepam 0.5 Mg Tablet PO 0.5 mg Q6H PRN Administration Anxiety Methylprednisolone Sodium Succinate 40 mg 10/29/20 09:45 11/02/20 08:46 Methylprednisolone Sod Succ/Pf 40 Mg/Ml Vial IVPUSH 40 mg Q24H [facility] Administration Metoprolol Tartrate 2.5 mg 10/28/20 13:12 10/28/20 19:03 Metoprolol Tartrate 5 Mg/5 Ml Vial IVPUSH 2.5 mg Q6H PRN Administration tachycardia Multivitamins/Vitamin C 1 tab 10/26/20 09:00 11/02/20 08:46 Multivitamin Tablet PO 1 tab DAILY [facility] Administration Omeprazole 20 mg 10/26/20 13:15 11/02/20 05:59 Omeprazole 20 Mg Capsule. PO 20 mg DAILY@0630 [facility] Administration Ondansetron HCl 4 mg 10/27/20 00:48 10/27/20 01:04 Ondansetron Hcl 4 Mg/2 Ml Vial IVPUSH 4 mg Q8H PRN Administration Nausea and Vomiting Senna 8.6 mg 10/26/20 08:53 Sennosides 8.6 Mg Tablet PO BEDTIME PRN Constipation Sodium Chloride 3 ml 10/26/20 00:00 11/02/20 07:42 0.9 % Sodium Chloride Flush 3 Ml Syringe IVFLUSH 3 ml QSHIFT [facility] Administration Labs CBC & Chem 7: 10/31/20 05:58 10/31/20 05:58 Microbiology Microbiology Results: Microbiology 10/25/20 21:46 Blood - Venous Blood Culture - Final No growth after 5 days. 10/25/20 21:22 Blood - Venous Blood Culture - Final No growth after 5 days. 10/26/20 14:10 Sputum - Expectorated Gram Stain - Final 10/26/20 14:10 Sputum - Expectorated Sputum Culture - Final Serratia marcescens Assessment and Plan (1) HCAP (healthcare-associated pneumonia): Status: Inactive Assessment and Plan: 65-year-old male with a past medical history of COPD, treatment intolerant SYED, bronchiectasis, who was admitted to the hospital from to 10/15 to 10/18 when he was treated for COPD exacerbation and empirically treated with IV antibiotics. He was discharged home with a short course of antibiotics. He now returns the hospital with worsening SOB and reported low grade temperature at home (100 per the patient). He is admitted for further work up. 1. Acute on Chronic Respiratory Failure with hypoxia and hypercarbia multifactorial -- see details below Off high flow, now on nasal cannula and stating 96 2. Acute on Chronic COPD / SYED /Bronchiacatsis / Serratia pneumonia acute exacerbations of all three solu-medrol day #6 scheduled updrafts On Tobra/Zmax -- 10 total doses each Levaquin day #6 (for Serratia) 3. Tachycardia Chronic, suspect compensation for his severe respiratory disease echo limited, but normal BiV function 4. Protein Calorie Malnutrition, moderate to severe supplements Megace and consider a PEG 5. Anemia of chronic disease chronic h/h stable Full Code DVT pptx, Lovenox
[2020-11-02 11:31] LABS: Glucose, Whole Blood 134 mg/dL (60-115)
[2020-11-02] MEDS: Azithromycin 500 MG TABLET PO (13:35)
[2020-11-02] MEDS: levoFLOXacin 750 MG TABLET PO (16:00)
[2020-11-02 16:05] LABS: Glucose, Whole Blood 198 mg/dL (60-115)
[2020-11-02] MEDS: Insulin Lispro 100 UNIT/ML 3 ML VIAL SUBCUT (17:30)
[2020-11-02 19:47] LABS: Glucose, Whole Blood 109 mg/dL (60-115)
[2020-11-02] MEDS: Enoxaparin Sodium 40 MG/0.4 ML SYRINGE SUBCUT (23:00)
[2020-11-03] VITALS (9 sets, daily range): BP systolic 92–117; BP diastolic 57–66; PULSE 74–111; RESP 14–20; TEMP 36.3–36.6; O2SAT 93–98
[2020-11-03] MEDS: Omeprazole 20 MG CAPSULE.DR PO (06:26)
[2020-11-03] MEDS: Albuterol/Iprat 2.5/0.5MG 3 ML AMPUL.NEB INHALE ×4 (07:07→19:43)
[2020-11-03 08:00] LABS: Glucose, Whole Blood 141 mg/dL (60-115)
[2020-11-03] MEDS: Aspirin Enteric Coated 81 MG TABLET.DR PO (08:02)
[2020-11-03] MEDS: Multivitamin TABLET 1 TAB PO (08:02)
[2020-11-03] MEDS: Atorvastatin Calcium 20 MG TABLET PO (08:02)
[2020-11-03] MEDS: 0.9 % Sodium Chloride Flush 3 ML SYRINGE IVFLUSH ×3 (08:02→21:00)
[2020-11-03] MEDS: LORazepam 0.5 MG TABLET PO (08:02)
[2020-11-03] MEDS: Ferrous Sulfate 324 MG TABLET.DR PO (08:02)
[2020-11-03] MEDS: acetaZOLAMIDE 250 MG TABLET PO (08:02)
--- NOTE | 2020-11-03 08:26 | HO.PM.IMPN ---
Subjective Subjective Date of Service: 12/21/20 Interval History: Seen in f/u for acute hypoxic respiratory failure due to SYED relate PNA. He is doing well and is now on nasal canular at 4 liters and sating 98 Physical Exam Vital Signs: Vital Signs: Last Vital Signs Temp 97.4 F 11/03/20 07:46 Pulse 97 11/03/20 07:46 Resp 16 11/03/20 07:46 BP 104/62 11/03/20 07:46 Pulse Ox 98 11/03/20 07:46 Body Mass Index 17.3 Const: Other: General - chronically ill-looking, cachectic, no distress, more confortable today Cardiovascular - regular rate and rhythm, S1-S2; tachycardic Lungs - respiratory distress with dim sound and tachypnea in the 30s Abdomen - soft, nontender, no rebound or guarding Extremities - no edema bilaterally Neuro - awake and alert, no focal deficits Objective Data Current Medications Generic Name Dose Route Start Last Admin Trade Name Freq PRN Reason Stop Dose Admin Acetaminophen 650 mg 10/25/20 23:38 11/01/20 10:29 Acetaminophen 325 Mg Tablet PO 650 mg Q6H PRN Administration Pain, Mild (Pain Scale 1-3) Acetazolamide 250 mg 10/31/20 09:00 11/03/20 08:02 Acetazolamide 250 Mg Tablet PO 250 mg DAILY ALFONSO Administration Albuterol/Ipratropium 3 ml 10/28/20 08:00 11/03/20 07:07 Albuterol/Iprat 2.5/0.5mg 3 Ml Ampul.Neb INHALE 3 ml RQ6H WHILE AWAKE ALFONSO Administration Aspirin 81 mg 10/26/20 09:00 11/03/20 08:02 Aspirin Enteric Coated 81 Mg Tablet. PO 81 mg DAILY ALFONSO Administration Atorvastatin Calcium 20 mg 10/26/20 09:00 11/03/20 08:02 Atorvastatin Calcium 20 Mg Tablet PO 20 mg DAILY ALFONSO Administration Docusate Sodium 100 mg 10/26/20 08:53 10/31/20 08:06 Docusate Sodium 100 Mg Capsule PO 100 mg BID PRN Administration constipation Enoxaparin Sodium 40 mg 10/26/20 00:00 11/02/20 23:00 Enoxaparin Sodium 40 Mg/0.4 Ml Syringe SUBCUT 40 mg Q24H ALFONSO Administration Ferrous Sulfate 324 mg 10/26/20 09:00 11/03/20 08:02 Ferrous Sulfate 324 Mg Tablet. PO 324 mg DAILY ALFONSO Administration Insulin Human Lispro 0 unit 10/26/20 07:30 11/03/20 08:02 Insulin Lispro 100 Unit/Ml 3 Ml Vial SUBCUT Not Given QIDACHS [facility] Protocol Levofloxacin 750 mg 10/29/20 16:00 11/02/20 16:00 Levofloxacin 750 Mg Tablet PO 750 mg Q24H ALFONSO Administration Lorazepam 0.5 mg 10/29/20 15:55 11/03/20 08:02 Lorazepam 0.5 Mg Tablet PO 0.5 mg Q6H PRN Administration Anxiety Methylprednisolone Sodium Succinate 40 mg 10/29/20 09:45 11/03/20 08:02 Methylprednisolone Sod Succ/Pf 40 Mg/Ml Vial IVPUSH 40 mg Q24H ALFONSO Administration Metoprolol Tartrate 2.5 mg 10/28/20 13:12 10/28/20 19:03 Metoprolol Tartrate 5 Mg/5 Ml Vial IVPUSH 2.5 mg Q6H PRN Administration tachycardia Multivitamins/Vitamin C 1 tab 10/26/20 09:00 11/03/20 08:02 Multivitamin Tablet PO 1 tab DAILY [facility] Administration Omeprazole 20 mg 10/26/20 13:15 11/03/20 06:26 Omeprazole 20 Mg Capsule. PO 20 mg DAILY@0630 [facility] Administration Ondansetron HCl 4 mg 10/27/20 00:48 10/27/20 01:04 Ondansetron Hcl 4 Mg/2 Ml Vial IVPUSH 4 mg Q8H PRN Administration Nausea and Vomiting Senna 8.6 mg 10/26/20 08:53 Sennosides 8.6 Mg Tablet PO BEDTIME PRN Constipation Sodium Chloride 3 ml 10/26/20 00:00 11/03/20 08:02 0.9 % Sodium Chloride Flush 3 Ml Syringe IVFLUSH 3 ml QSHIFT [facility] Administration Labs CBC & Chem 7: 10/31/20 05:58 10/31/20 05:58 Microbiology Microbiology Results: Microbiology 10/25/20 21:46 Blood - Venous Blood Culture - Final No growth after 5 days. 10/25/20 21:22 Blood - Venous Blood Culture - Final No growth after 5 days. 10/26/20 14:10 Sputum - Expectorated Gram Stain - Final 10/26/20 14:10 Sputum - Expectorated Sputum Culture - Final Serratia marcescens Assessment and Plan (1) HCAP (healthcare-associated pneumonia): Status: Inactive Assessment and Plan: 65-year-old male with a past medical history of COPD, treatment intolerant SYED, bronchiectasis, who was admitted to the hospital from to 10/15 to 10/18 when he was treated for COPD exacerbation and empirically treated with IV antibiotics. He was discharged home with a short course of antibiotics. He now returns the hospital with worsening SOB and reported low grade temperature at home (100 per the patient). He is admitted for further work up. 1. Acute on Chronic Respiratory Failure with hypoxia and hypercarbia primary due to SYED /Bronchiacatsis / Serratia pneumonia but also COPD -He has been on high flow and NRB but has been weaned to nasal canula now -has completed 10 days of Tobra and Azithor -Levaquin D6 started by ID on 10/29, on 11/01, ID wrote Continue Azithromycin for now,duration on discharge per Pulmonary --need some clarifiction. -Will DC Levaquin after 7 days ( for seratia in sputum)then and start oral Azithro 500 daily 2. COPD exac--has been on inhalers and Solumedrol. -Continue inhalers -Change IV Solumedrol to oral Prendisone 40 mag daily and yvette by 10 every 3 days 3. Tachycardia--chronic, related to severe respiratory disease, better today at 97, echo nl ef 4. Protein Calorie Malnutrition, moderate to severe -Continue high protein supplement -Megace to boost apetite -elective PEG can be considered on outpatient basis to optimize nutrition 5. Anemia of chronic disease, H/H stable. Full Code DVT pptx, Lovenox
[2020-11-03 11:33] LABS: Glucose, Whole Blood 261 mg/dL (60-115)
[2020-11-03] MEDS: predniSONE 20 MG TABLET 40 MG PO (12:12)
[2020-11-03] MEDS: Insulin Lispro 100 UNIT/ML 3 ML VIAL SUBCUT ×3 (12:12→20:59)
[2020-11-03] MEDS: guaiFENesin 100 MG/5 ML LIQUID PO (12:44)
[2020-11-03] MEDS: levoFLOXacin 750 MG TABLET PO (16:20)
[2020-11-03 16:29] LABS: Glucose, Whole Blood 162 mg/dL (60-115)
[2020-11-03 20:02] LABS: Glucose, Whole Blood 162 mg/dL (60-115)
[2020-11-03] MEDS: Acetaminophen 325 MG TABLET 650 MG PO (20:59)
[2020-11-03] MEDS: LORazepam 2 MG/ML VIAL 0.5 MG IVPUSH (22:00)
[2020-11-03] MEDS: Enoxaparin Sodium 40 MG/0.4 ML SYRINGE SUBCUT (23:46)
[2020-11-04] VITALS: BP 90/46; PULSE 98; RESP 18; TEMP 36.9; O2SAT 98
[2020-11-04 04:00] VITALS: BP 107/63; PULSE 99; RESP 20; TEMP 36.6; O2SAT 99
[2020-11-04] MEDS: Omeprazole 20 MG CAPSULE.DR PO (05:47)
[2020-11-04] MEDS: guaiFENesin 100 MG/5 ML LIQUID PO ×2 (06:02→13:15)
[2020-11-04 07:39] VITALS: BP 127/65; PULSE 102; RESP 18; TEMP 36.5; O2SAT 95
[2020-11-04] MEDS: acetaZOLAMIDE 250 MG TABLET PO (07:43)
[2020-11-04] MEDS: oxyCODONE HCl Immed Release 5 MG TABLET PO ×2 (07:43→13:15)
[2020-11-04] MEDS: predniSONE 20 MG TABLET 40 MG PO (07:44)
[2020-11-04] MEDS: Aspirin Enteric Coated 81 MG TABLET.DR PO (07:44)
[2020-11-04] MEDS: Multivitamin TABLET 1 TAB PO (07:44)
[2020-11-04] MEDS: Ferrous Sulfate 324 MG TABLET.DR PO (07:44)
[2020-11-04] MEDS: Atorvastatin Calcium 20 MG TABLET PO (07:44)
[2020-11-04] MEDS: 0.9 % Sodium Chloride Flush 3 ML SYRINGE IVFLUSH (07:45)
[2020-11-04 07:53] LABS: Glucose, Whole Blood 114 mg/dL (60-115)
[2020-11-04 11:09] VITALS: BP 114/66; PULSE 122; RESP 22; TEMP 37.1; O2SAT 92
--- NOTE | 2020-11-04 11:23 | MHC.CLN ---
F/U PO INTAKE IMPROVED OVER WEEKEND 75% DIET RX: REGULAR-APPROPRIATE PT RECEIVING 8OZ ENSURE TID PROVIDES 1050KCALS (76% EST KCALS NEEDS), 60G PROTEIN (1.3G/KG) NOTED MD ADDED MEGACE FOR APPETITE MONITOR PO AND WT CLOSELY
[2020-11-04 11:31] LABS: Glucose, Whole Blood 140 mg/dL (60-115)
--- NOTE | 2020-11-04 11:48 | MHC.CM.PN ---
per rounds no dc date at this time appetite improving
[2020-11-04] MEDS: LORazepam 0.5 MG TABLET PO (13:15)
[2020-11-04] MEDS: Albuterol/Iprat 2.5/0.5MG 3 ML AMPUL.NEB INHALE (13:30)
[2020-11-04 14:42] VITALS: BP 110/67; PULSE 121; RESP 20; TEMP 36.7
--- NOTE | 2020-11-04 15:12 | MHC.CM.PN ---
pt dcd no skilled sercvices ordered by
--- NOTE | 2020-11-04 15:16 | W.MHC.F2F ---
Service Date Service Date: 11/04/20 Encounter Date of encounter: 11/04/20 Reasons for Services Signs and symptoms assessed: respiratory Reason for nursing home: medication treatment and teach disease management Reason for physical therapy: home safety and mobility, therapeutic exercises, gait/transfer training, assess need for DME, ADL training and energy conservation MD Overseeing Care: Ean Hickey Homebound: Leaving the home is medically contraindicated at this time without the asist of a device and/or another person due th the listed conditions above and below. Reason homebound: immunosuppression / infection risk Homebound supporting statement: The patient was admitted to [facility] 10/25/20-11/04/20 for respiratory failure due to COPD, Serratia pneumonia, and chronic SYED. He will be discharged home with steroid taper. He is back on his home dose of 2L of O2 by nasal cannula. VNA services for medication management, respiratory assesment, and PT are requested. Certification: Based on the above findings, I certify that this patient is confined to the home and needs intermittent nursing home care, physical therapy and/or speech therapy, or continues to need occupational therapy. The patient is under my care, and I have initiated the establishment of the plan of care. The patient will be followed by a physician who will periodically review the plan of care.
--- NOTE | 2020-11-04 15:18 | P.DS_ITS ---
DS: Providers Provider Date of Service: 11/04/20 Date of admission: 10/25/20 23:38 Primary care physician: Ean Hickey MD Consults: 10/25/20 23:38 Consult to Infectious Diseases Routine Consulting Provider: Roz Canseco Reason for consultation: HCAP; Cystic change on CT chest Consult to Pulmonology Routine Consulting Provider: Kaley Lopez Reason for consultation: HCAP; Lingular infiltrate with cystic chnage DS: Diagnosis Discharge Diagnosis (1) Acute and chronic respiratory failure with hypoxia: Status: Acute (2) COPD exacerbation: Status: Acute (3) SYED (mycobacterium avium-intracellulare): Status: Acute Problem details: Active (4) Pneumonia due to Serratia marcescens: Status: Acute (5) Protein-calorie malnutrition, moderate: Status: Acute DS: Medications Discharge Medications Home Medications: Home Medications Medication Instructions Recorded Confirmed Atrovent HFA 2 puff PO QID 06/01/20 10/26/20 albuterol sulfate 2.5 mg INHALATION QID PRN 06/01/20 10/26/20 aspirin 81 mg PO DAILY 06/01/20 10/26/20 atorvastatin 20 mg PO DAILY 06/01/20 10/26/20 montelukast 10 mg PO BEDTIME 06/01/20 10/26/20 sildenafil [Viagra] 0.5 - 1 tab PO DAILY PRN 06/01/20 10/26/20 bupropion HCl 150 mg PO BID 08/05/20 10/26/20 ferrous sulfate 325 mg PO DAILY 08/05/20 10/26/20 fluticasone propionate 2 spray INTRANASAL DAILY PRN 08/05/20 10/26/20 ketoconazole 1 appl TOPICAL 2XW 08/05/20 10/26/20 multivitamin 1 tab PO DAILY 08/05/20 10/26/20 sennosides [senna] 1 tab PO BEDTIME PRN 08/05/20 10/26/20 Incruse Ellipta 1 inh INHALATION DAILY 09/03/20 10/26/20 Breo Ellipta 1 inh INHALATION DAILY 10/10/20 10/26/20 docusate sodium 100 mg PO BID 10/10/20 10/26/20 gabapentin 300 mg PO TID 10/10/20 10/26/20 valsartan 40 mg PO DAILY 10/10/20 10/26/20 Previous Rx's Medication Instructions Recorded ipratropium 0.5 mg-albuterol 3 mg 3 ml INHALATION QID 30 Days #360 ml 06/28/20 (2.5 mg base)/3 mL nebulization soln acetazolamide 250 mg PO DAILY #30 tab 09/08/20 prednisone See Rx Instructions .ROUTE 11/04/20 .COMPLEX #30 tab DS: Summary Hospital Course Hospital Course: From history and physical by admitting hospitalist Vidal Neely, 10/25/20: 65-year-old male with a past medical history of hypertension, hyperlipidemia, COPD on home oxygen, latent tuberculosis, recently discharged from the hospital for COVID-19 pneumonia/COPD exacerbation presented to the hospital today with a chief complaint of fevers. Complains of cough with yellowish sputum. Also complains of shortness of breath. Denies any numbness tingling. Denies any chest pain palpitations lightheadedness or dizziness. Denies any GI or symptoms. Patient mentioned that he was taking prednisone taper and antibiotics which he just finished. Given recurrent fevers presented to the ER for further evaluation. Review of all other systems is negative except mentioned above ER course: For ER team patient noted to have low-grade fevers, saturations are 88%; CT chest showed new extensive lingular infiltrate; patient was also noted to be tachycardic, presumed to be in the setting of sepsis. The patient was admitted to the [facility] for [id number] hypoxic and hypercarbic respiratory failure due to a combination of COPD exacerbation and what ended up being diagnosed as Serratia marcescens pneumonia, superimposed on bronchiectasis and chronic SYED infection. He was treated with intravenous gluccorticoids plus azithromcyin and inhaled tobramycin as well as levofloxacin. He required high-flow nasal cannula and non-rebreather mask but was weaned back down to his baseline O2 requirement of 2L via nasal cannula. He was discharged home with VNA services; no further antibiotics were recommended by the ID and pulmonology consultants. Prednisone will be tapered down over 12 days upon discharge. He was instructed to follow up with his primary care doctor, his infectious disease specialist, and his switch adjuster as an outpatient. Regarding malnutrition, he should be prescribed Ensure by his PCP and an elective PEG could be considered in the future as an outpatient to optimize nutritional status. Time Spent with Patient Time attestation: Total time spent providing and/or coordinating discharge services: 35 Discharge coordination time: Greater than 30 minutes Physical Exam Vital Signs: Vital Signs: Last Vital Signs Temp 98.0 F 11/04/20 14:42 Pulse 121 H 11/04/20 14:42 Resp 20 11/04/20 14:42 BP 110/67 11/04/20 14:42 Pulse Ox 92 11/04/20 11:09 Body Mass Index 17.3 Gen: in no acute distress, mildly malnouorished HEENT: sclera anicteric, moist mucus membranes Neck: supple Lungs: diminished breath sounds Heart: regular rate and rhythm, no murmurs Abd: soft, non-tender, non-distended Ext: no edema Skin: warm/well-perfused Neuro: alert and oriented x3, no focal findings Psych: appropriate affect DS: Data Data Completed and Pending Completed studies during hospitalization [Text1]: Procedures Assistance with Respiratory Ventilation, Less than 24 Consecutive Hours, Continuous Positive Airway Pressure (09/03/20) Detoxification Services for Substance Abuse Treatment (06/01/20) Insertion of Infusion Device into Superior Vena Cava, Percutaneous Approach (06/01/20) Introduction of Vasopressor into Peripheral Vein, Percutaneous Approach (06/01/20) Transfusion of Convalescent Plasma (Nonautologous) into Peripheral Vein, Percutaneous Approach, [employer] (09/03/20) Ultrasonography of Superior Vena Cava, Guidance (06/01/20) Labs on day of discharge: Laboratory Results - last 24 hr 11/03/20 11/03/20 11/04/20 16:21 19:55 07:36 POC Glucose 162 H 162 H 114 11/04/20 11:07 POC Glucose 140 H Discharge Plan Discharge Patient Disposition: Home Health Service Referrals: Roz Canseco MD [Physician] - (1-2 weeks, for Serratia PNA/SYED) Ean Hickey MD [Physician] - 1 Week (TELE 11/07/2020 1:30pm. Dr. Hickey will call you to discuss your hospital stay.) Cipriano Lara MD [Physician] - (1-2 weeks, for Serratia PNA/SYED) Discharge Medications: New prednisone 10 mg tablet See Rx Instructions .ROUTE .COMPLEX Qty: 30 RF: 0 Continued ipratropium-albuterol 0.5 mg-3 mg(2.5 mg base)/3 mL solution for nebulization 3 ml inhalation QID 30 Days Qty: 360 RF: 6 Incruse Ellipta 62.5 mcg/actuation Blister With Device 1 inh INHALATION DAILY RF: 0 acetazolamide 250 mg Tablet 250 mg PO DAILY Qty: 30 RF: 0 docusate sodium 100 mg Capsule 100 mg PO BID RF: 0 valsartan 40 mg Tablet 40 mg PO DAILY RF: 0 Breo Ellipta 200-25 mcg/dose Blister With Device 1 inh INHALATION DAILY RF: 0 gabapentin 300 mg Capsule 300 mg PO TID RF: 0 atorvastatin 20 mg tablet 20 mg PO DAILY RF: 0 albuterol sulfate 2.5 mg /3 mL (0.083 %) solution for nebulization 2.5 mg inhalation QID PRN (Reason: Wheezing) RF: 0 aspirin 81 mg tablet,delayed release (DR/EC) 81 mg PO DAILY RF: 0 sildenafil [Viagra] 100 mg tablet 0.5 - 1 tab PO DAILY PRN (Reason: Erectile Dysfunction) RF: 0 montelukast 10 mg tablet 10 mg PO BEDTIME RF: 0 Atrovent HFA 17 mcg/actuation HFA aerosol inhaler 2 puff PO QID RF: 0 multivitamin Tablet 1 tab PO DAILY RF: 0 bupropion HCl 150 mg tablet sustained-release 12 hr 150 mg PO BID RF: 0 sennosides [senna] 8.6 mg tablet 1 tab PO BEDTIME PRN (Reason: Constipation) RF: 0 ketoconazole 2 % shampoo 1 appl topical 2XW RF: 0 ferrous sulfate 325 mg (65 mg iron) tablet 325 mg PO DAILY RF: 0 fluticasone propionate 50 mcg/actuation spray,suspension 2 spray intranasal DAILY PRN (Reason: Nasal Congestion) RF: 0 Discharge Orders: Discharge Order (Routine); Ordered 11/04/20 Ordered By: Cora Etienne Diet: advance to usual diet Activity on Discharge: As tolerated Stand Alone Forms: Patient Portal Discharge page Care Plan Goals: resolution of pneumonia avoidance of flares of COPD Health Concerns: Serratia pneumonia COPD chronic SYED infection Plan of Treatment: take prednisone (10 mg tablets) as follows: 40 mg (4 tabs) daily x 3 days, then 30 mg (3 tabs) daily x 3 days, then 20 mg (2 tabs) daily x 3 days, then 10 mg (1 tab) daily x 3 days follow up with the following doctors: 1. Dr Hickey, your primary care doctor, in [address] Canseco, your infectious disease doctor, in 1-[address], [address], [place] [address] Lara, your switch adjuster, in 1-[address] [facility] [address] [place] [address], [place] [id number] Patient Instructions: Chronic Lung Disease and Infection Prevention (DC)
[2020-11-04 15:34] VITALS: BP 131/81; PULSE 114; RESP 20; TEMP 36.2; O2SAT 98
== END 2020-11-04 17:00 | disposition home health service (06) | DRG 177 ==
LOC: HO.ED 23:47 → HO.IMC 10-26 00:43 → HO.ICU 10-28 05:46 → HO.IMC 10-28 11:39
PROVIDERS: Family Medicine; Internal Medicine; Internal Medicine Pulmonary Disease; Physician Assistant; Admitting Provider Hospitalist; Emergency Provider Internal Medicine; PCP Nurse Practitioner Family; Visit Provider Family Medicine
DX: J15.6 Pneumonia due to other Gram-negative bacteria (principal); J96.22 Acute and chronic respiratory failure with hypercapnia; E43 Unspecified severe protein-calorie malnutrition; J96.21 Acute and chronic respiratory failure with hypoxia; J44.0 Chronic obstructive pulmonary disease with (acute) lower respiratory infection; J44.1 Chronic obstructive pulmonary disease with (acute) exacerbation; Z68.1 Body mass index [BMI] 19.9 or less, adult; A31.9 Mycobacterial infection, unspecified; J47.1 Bronchiectasis with (acute) exacerbation; Z99.81 Dependence on supplemental oxygen; Z20.822 Contact with and (suspected) exposure to COVID-19; D63.8 Anemia in other chronic diseases classified elsewhere; I95.1 Orthostatic hypotension; Z86.16 Personal history of COVID-19; E78.5 Hyperlipidemia, unspecified; Z87.891 Personal history of nicotine dependence; Z88.0 Allergy status to penicillin; Z79.82 Long term (current) use of aspirin; Z79.52 Long term (current) use of systemic steroids; Z79.899 Other long term (current) drug therapy
CPT/HCPCS: 36415; 36600; 70450; 71045; 71250; 71275; 80048; 80076; 80202; 82947; 83605; 83880; 84145; 84443; 85025; 85027; 85379; 86140; 87040; 87070; 87186; 87205; 87635; 93005; 93306; 94640; 94660; 96365; 96368; 99212; 99285; J0131; J1200; J1650; J2060; J2370; J2405; J2543; J2920; J3260; J3370; P9047; Q9967

== ENCOUNTER → 2020-11-13 13:37 | Outpatient (BNVA) | payer OTHER, SELFPAY | PROVIDERS: PCP Internal Medicine; Visit Provider Internal Medicine Pulmonary Disease | DX: J44.1 Chronic obstructive pulmonary disease with (acute) exacerbation (principal); Z99.81 Dependence on supplemental oxygen; Z87.891 Personal history of nicotine dependence | CPT/HCPCS: 99212 ==

== ENCOUNTER 2020-11-15 21:06 | Inpatient (IN) | payer OTHER, SELFPAY ==
--- NOTE | 2020-11-15 | ECG_ITS ---
Test Reason : KRISTOPHER PAIN Blood Pressure : / mmHG Vent. Rate : 127 BPM Atrial Rate : 127 BPM P-R Int : 120 ms QRS Dur : 088 ms QT Int : 294 ms P-R-T Axes : 085 -19 081 degrees QTc Int : 427 ms Sinus tachycardia Premature ventricular complexes Biatrial enlargement Abnormal ECG When compared with ECG of 27-OCT-2020 04:37, Premature ventricular complexes present Referred By: Glenys Church Electronically Signed By:CRISTINA SOLORZANO
--- NOTE | ~2020-11-15 | XR_ITS ---
EXAMINATION: XR CHEST CLINICAL INFORMATION: Shortness of breath COMPARISON: 10/28/2019 TECHNIQUE: Frontal view of the chest was obtained. FINDINGS: Once again seen is severe upper lobe scarring with elevated payal and increased parenchymal densities. There is a cavitary lesion at the right apex that is unchanged. Since the prior study, some of the areas of abnormality left upper lobe appear more confluent and some of the areas in the right mid and lower lung appear decreased although some of this may be projectional. Calcified granulomas are present. XR/XR chest 1V IMPRESSION: Marked chronic changes with pleural parenchymal scarring. There is some mild changes since the prior study as described above. No overwhelming new significant process to account for worsening shortness of breath. Cavitary lesion right apex unchanged.
--- NOTE | ~2020-11-15 | CT_ITS ---
EXAMINATION: CT CHEST, ABDOMEN AND PELVIS WITH CONTRAST CLINICAL INFORMATION: Hypoxia. Abdominal pain. COMPARISON: Multiple prior exams are reviewed. The most recent is from 11/15/2020. TECHNIQUE: Contiguous axial thin section helical images of the chest, abdomen and pelvis were performed following the administration of 75 mL of intravenous Omnipaque 350. The data set was reformatted in the coronal and sagittal planes and reviewed on an independent workstation. DLP: 453 mGy-cm. FINDINGS: The heart is of normal size. There is no pericardial effusion. There is neither mediastinal, hilar nor axillary lymphadenopathy. There are no chest wall masses. Review of lung windows again demonstrates extensive chronic changes within the upper lobes. There is stable bilateral upper lobe scarring along with bulla formation. There is improved aeration at the right lung base with persistent posterior basal segment right lower lobe consolidation. There is new groundglass opacification within the posterior basal segment of the left lower lobe. The liver is of normal size and attenuation without focal lesions nor intrahepatic biliary ductal dilation. A normal gallbladder is identified. There is no wall thickening or discernible pericholecystic fluid. The pancreas and adrenal glands are unremarkable. The spleen is absent. Both kidneys are of normal size and attenuation without hydronephrosis or nephrolithiasis. Following the administration of IV contrast, prompt symmetric nephrograms are displayed. There is no abdominal free fluid. There is neither mesenteric nor retroperitoneal lymphadenopathy. There is a moderate amount of stool within the rectum. Otherwise, unremarkable opacified loops of small and large bowel are identified. There is no pelvic free fluid. The urinary bladder is unremarkable. There is neither pelvic nor inguinal lymphadenopathy. Bone windows: Neither sclerotic nor lytic bone lesions are identified. CT/CT abdomen pelvis w con IMPRESSION: Stable extensive chronic changes noted within both lungs. Improved aeration with persistent right lower lobe posterior basal segment consolidation. Glass opacification within the left lower lobe. No acute abdominal or pelvic inflammatory or infectious processes. Moderate amount of stool within the rectum. Automated exposure control (Care Dose) Adjustment of the mA and/or kv according to patient size (this includes techniques or standardized protocols for targeted exams where dose is matched to indication / reason for exam; i.e. extremities or head).
--- NOTE | 2020-11-15 21:15 | ED_ITS ---
HPI - SOB/Dyspnea General Chief Complaint: Dyspnea Stated Complaint: sob Time Seen by Provider: 11/15/20 21:15 Source: patient, EMS and electronic health records specialist Mode of arrival: EMS History of Present Illness HPI Narrative: This is a 65-year-old male with known chronic lung condition who presents with acute exacerbation and who denies any other complaints other than lower back discomfort. He does endorse that he is increased shortness of breath but denies any urinary or abdominal pain. Related Data Home Medications Medication Instructions Recorded Confirmed Atrovent HFA 2 puff PO QID 06/01/20 11/15/20 albuterol sulfate 2.5 mg INHALATION QID PRN 06/01/20 11/15/20 aspirin 81 mg PO DAILY 06/01/20 11/15/20 atorvastatin 20 mg PO DAILY 06/01/20 11/15/20 montelukast 10 mg PO BEDTIME 06/01/20 11/15/20 sildenafil [Viagra] 0.5 - 1 tab PO DAILY PRN 06/01/20 11/15/20 bupropion HCl 150 mg PO BID 08/05/20 11/15/20 ferrous sulfate 325 mg PO DAILY 08/05/20 11/15/20 fluticasone propionate 2 spray INTRANASAL DAILY PRN 08/05/20 11/15/20 ketoconazole 1 appl TOPICAL 2XW 08/05/20 11/15/20 multivitamin 1 tab PO DAILY 08/05/20 11/15/20 sennosides [senna] 1 tab PO BEDTIME PRN 08/05/20 11/15/20 Incruse Ellipta 1 inh INHALATION DAILY 09/03/20 11/15/20 Breo Ellipta 1 inh INHALATION DAILY 10/10/20 11/15/20 gabapentin 300 mg PO TID 10/10/20 11/15/20 valsartan 40 mg PO DAILY 10/10/20 11/15/20 hydroxyzine HCl 1 tab PO TID PRN 11/15/20 11/15/20 Previous Rx's Medication Instructions Recorded ipratropium 0.5 mg-albuterol 3 mg 3 ml INHALATION QID 30 Days #360 ml 06/28/20 (2.5 mg base)/3 mL nebulization soln acetazolamide 250 mg PO DAILY #30 tab 09/08/20 prednisone See Rx Instructions .ROUTE 11/04/20 .COMPLEX #30 tab amoxicillin 875 mg-potassium 1 tab PO BID 10 Days #20 tab 11/05/20 clavulanate 125 mg tablet albuterol sulfate 90 mcg/actuation 2 puff INHALATION Q4-6H PRN 30 11/06/20 aerosol inhaler Days #1 ea Allergies Allergy/AdvReac Type Severity Reaction Status Date / Time morphine [MORPHINE] Allergy Mild VOMITING Verified 11/13/20 13:46 Review of Systems Review of Systems: Pertinent positives and negatives as stated in HPI 10 point review of systems is otherwise negative. [facility] Past Medical History Source: nursing notes reviewed Medical History Asthma Bronchiectasis Cocaine abuse COPD (chronic obstructive pulmonary disease) COPD (chronic obstructive pulmonary disease) COPD exacerbation COVID-19 virus infection SYED (mycobacterium avium-intracellulare) Mycobacteria, atypical Pneumonia Pneumonia Protein-calorie malnutrition, moderate Respiratory failure with hypoxia and hypercapnia Serratia marcescens infection Family History Family History Other Family history non-contributory HTN (hypertension) Social History Social History Household Members: Significant Other Housing: Apartment Alcohol intake: never Smoking Status: Former smoker Smoked in Last 30 Days: No Second Hand Smoke Exposure: No Use of substances other than those prescribed or required for medical reasons: No Substance Use Type: Crack/Cocaine Advance Directives: No Advance Directives Information Provided: Yes service: No Current occupational status: unemployed, retired and disabled Physical Exam Vital Signs: Vital Signs: Last Vital Signs Temp 98.1 F 11/15/20 23:07 Pulse 138 H 11/15/20 23:22 Resp 28 H 11/15/20 23:22 BP 116/70 11/15/20 23:07 Pulse Ox 94 11/15/20 23:07 Body Mass Index 16.4 VITAL SIGNS: Reviewed. GENERAL: Cachectic, chronically ill, mild distress. HEAD: Normocephalic/atraumatic EYES: PERRLA, EOMI OROPHARYNX: no oral lesions noted, posterior pharynx clear, dry mucosa NECK: Supple, no adenopathy LUNGS: Bilateral, diffuse rhonchi, tachypnea positive, minimal retractions. SpO2<87> improvement to 92% after placing on 4 L via nasal cannula CARDIOVASCULAR: Regular rate and rhythm without noted murmurs, no JVD or lower extremity edema. ABDOMEN: Soft, non-tender, non-distended with bowel sounds. No palpable masses, symmetric/2+ femoral pulses MUSCULOSKELETAL: No tenderness, deformities, or effusions noted on gross inspection. EXTREMITIES: No cyanosis, clubbing or edema. SKIN: Inspection of the skin reveals no rashes, ulcerations, jaundice, pallor, or petechiae. NEUROLOGIC: Alert and oriented x 4. Strength and sensation to light touch were grossly intact x 4. Course Course Course Narrative: This is a 65-year-old male with recurrent presentation of acute respiratory failure and on review of all investigations and interventions patient's findings were significant for a noted increased confluence of previous chest x-ray findings the left upper lobe as well as hypotension and tachycardia which were treated with antibiotics, sepsis fluids, lactic acid as well as blood cultures. VBG was noted to demonstrate CO2 retention and patient had good resolution of pCO2 (60) after being placed on high-flow. Patient is COVID-19 negative and this case was discussed with the inpatient hospitalist team who is agreeable for admission. MDM - SOB/Dyspnea Lab Data Result diagrams: 11/15/20 21:53 11/15/20 21:52 Labs: Lab Results 11/15/20 11/15/20 11/15/20 Range/Units 21:42 21:52 21:52 WBC (4.8-10.8) X10*3/uL RBC (4.60-5.80) X10*6/uL Hgb (14.0-18.0) g/dl Hct (42-52) % MCV (80-98) fL MCH (27.0-33.0) pg MCHC (31.0-36.0) g/dl RDW (11.0-16.0) % Plt Count (160-400) X10*3/uL MPV (9.4-12.4) fL Immature Gran % (Auto) (0.0-0.4) % Neut % (Auto) (45-73) % Lymph % (Auto) (20-40) % Ripley % (Auto) (2-11) % Eos % (Auto) (0-4) % Baso % (Auto) (0-2) % Lymph # (Auto) (1.2-4.9) X10*3/uL Ripley # (Auto) (0.1-1.2) X10*3/uL Eos # (Auto) (0.0-0.4) X10*3/uL Baso # (Auto) (0.0-0.2) X10*3/uL Abs Immat Gran (auto) (0.00-0.03) X10*3/uL Absolute Neuts (auto) (2.0-8.3) X10*3/uL Absolute Nucleated RBC (0.0-0.012) X10*3/uL Nucleated RBC % (auto) (0.0-0.2) /100WBC Smear Tech's Comments VBG pH (7.32-7.43) VBG pCO2 mmHg VBG pO2 mmHg VBG HCO3 (22-26) mmol/L VBG O2 Saturation % VBG Base Excess mmol/L Sodium 138 (135-145) mmol/L Potassium 4.8 (3.3-5.1) mmol/L Chloride 92 L (96-108) mmol/L Carbon Dioxide 36 H (22-29) mmol/L Anion Gap 15 (12-20) BUN 15 (9-16) mg/dL Creatinine 0.65 (0.5-1.4) mg/dL Estim Creat Clear Calc 75.2 Estimated GFR > 60 Random Glucose 110 (60-115) mg/dL Lactic Acid (0.5-2.0) mmol/L Calcium 8.1 L D (8.4-10.2) mg/dL Total Bilirubin 0.4 (0.0-1.0) mg/dL AST 37 D (5-37) U/L ALT 42 H (0-40) U/L Alkaline Phosphatase 231 H D (39-117) U/L C-Reactive Protein 27.43 H (< or = 0.50) mg/dL B-Natriuretic Peptide (<100) pg/mL Total Protein 6.2 L (6.5-8.0) g/dL Albumin 2.9 L (3.5-5.0) g/dL Procalcitonin 0.09 ng/mL Urine Color Urine Appearance Urine pH (5.0-8.0) Ur Specific Hercules (1.005-1.025) Urine Protein (NEG-TRACE) MG/DL Urine Glucose (UA) (NEG) MG/DL Urine Ketones (NEG) MG/DL Urine Blood (NEG) Urine Nitrite (NEG) Ur Leukocyte Esterase (NEG) Coronavirus (PCR) NEGATIVE (Negative) Influenza Type A (PCR) NEGATIVE (Negative) Influenza Type B (PCR) NEGATIVE (Negative) RSV RNA Qual (PCR) NEGATIVE (Negative) 11/15/20 11/15/20 11/15/20 Range/Units 21:53 21:53 21:59 WBC 21.0 H (4.8-10.8) X10*3/uL RBC 3.09 L (4.60-5.80) X10*6/uL Hgb 8.8 L (14.0-18.0) g/dl Hct 28.6 L (42-52) % MCV 92.6 (80-98) fL MCH 28.5 (27.0-33.0) pg MCHC 30.8 L (31.0-36.0) g/dl RDW 18.7 H (11.0-16.0) % Plt Count 674 H (160-400) X10*3/uL MPV 9.1 L (9.4-12.4) fL Immature Gran % (Auto) 0.9 H (0.0-0.4) % Neut % (Auto) 82.2 H (45-73) % Lymph % (Auto) 5.4 L (20-40) % Ripley % (Auto) 9.5 (2-11) % Eos % (Auto) 1.8 (0-4) % Baso % (Auto) 0.2 (0-2) % Lymph # (Auto) 1.1 L (1.2-4.9) X10*3/uL Ripley # (Auto) 2.0 H (0.1-1.2) X10*3/uL Eos # (Auto) 0.4 (0.0-0.4) X10*3/uL Baso # (Auto) 0.1 (0.0-0.2) X10*3/uL Abs Immat Gran (auto) 0.18 H (0.00-0.03) X10*3/uL Absolute Neuts (auto) 17.3 H (2.0-8.3) X10*3/uL Absolute Nucleated RBC 0.000 (0.0-0.012) X10*3/uL Nucleated RBC % (auto) 0.0 (0.0-0.2) /100WBC Smear Tech's Comments VERIFIED VBG pH (7.32-7.43) VBG pCO2 mmHg VBG pO2 mmHg VBG HCO3 (22-26) mmol/L VBG O2 Saturation % VBG Base Excess mmol/L Sodium (135-145) mmol/L Potassium (3.3-5.1) mmol/L Chloride (96-108) mmol/L Carbon Dioxide (22-29) mmol/L Anion Gap (12-20) BUN (9-16) mg/dL Creatinine (0.5-1.4) mg/dL Estim Creat Clear Calc Estimated GFR Random Glucose (60-115) mg/dL Lactic Acid 0.9 (0.5-2.0) mmol/L Calcium (8.4-10.2) mg/dL Total Bilirubin (0.0-1.0) mg/dL AST (5-37) U/L ALT (0-40) U/L Alkaline Phosphatase (39-117) U/L C-Reactive Protein (< or = 0.50) mg/dL B-Natriuretic Peptide 23 (<100) pg/mL Total Protein (6.5-8.0) g/dL Albumin (3.5-5.0) g/dL Procalcitonin ng/mL Urine Color Urine Appearance Urine pH (5.0-8.0) Ur Specific Hercules (1.005-1.025) Urine Protein (NEG-TRACE) MG/DL Urine Glucose (UA) (NEG) MG/DL Urine Ketones (NEG) MG/DL Urine Blood (NEG) Urine Nitrite (NEG) Ur Leukocyte Esterase (NEG) Coronavirus (PCR) (Negative) Influenza Type A (PCR) (Negative) Influenza Type B (PCR) (Negative) RSV RNA Qual (PCR) (Negative) 11/15/20 11/16/20 11/16/20 Range/Units 22:55 00:27 01:25 WBC (4.8-10.8) X10*3/uL RBC (4.60-5.80) X10*6/uL Hgb (14.0-18.0) g/dl Hct (42-52) % MCV (80-98) fL MCH (27.0-33.0) pg MCHC (31.0-36.0) g/dl RDW (11.0-16.0) % Plt Count (160-400) X10*3/uL MPV (9.4-12.4) fL Immature Gran % (Auto) (0.0-0.4) % Neut % (Auto) (45-73) % Lymph % (Auto) (20-40) % Ripley % (Auto) (2-11) % Eos % (Auto) (0-4) % Baso % (Auto) (0-2) % Lymph # (Auto) (1.2-4.9) X10*3/uL Ripley # (Auto) (0.1-1.2) X10*3/uL Eos # (Auto) (0.0-0.4) X10*3/uL Baso # (Auto) (0.0-0.2) X10*3/uL Abs Immat Gran (auto) (0.00-0.03) X10*3/uL Absolute Neuts (auto) (2.0-8.3) X10*3/uL Absolute Nucleated RBC (0.0-0.012) X10*3/uL Nucleated RBC % (auto) (0.0-0.2) /100WBC Smear Tech's Comments VBG pH 7.28 L 7.42 (7.32-7.43) VBG pCO2 91 60 mmHg VBG pO2 44 186 mmHg VBG HCO3 43 H 39 H (22-26) mmol/L VBG O2 Saturation 62.0 99.0 % VBG Base Excess 13.7 13.4 mmol/L Sodium (135-145) mmol/L Potassium (3.3-5.1) mmol/L Chloride (96-108) mmol/L Carbon Dioxide (22-29) mmol/L Anion Gap (12-20) BUN (9-16) mg/dL Creatinine (0.5-1.4) mg/dL Estim Creat Clear Calc Estimated GFR Random Glucose (60-115) mg/dL Lactic Acid (0.5-2.0) mmol/L Calcium (8.4-10.2) mg/dL Total Bilirubin (0.0-1.0) mg/dL AST (5-37) U/L ALT (0-40) U/L Alkaline Phosphatase (39-117) U/L C-Reactive Protein (< or = 0.50) mg/dL B-Natriuretic Peptide (<100) pg/mL Total Protein (6.5-8.0) g/dL Albumin (3.5-5.0) g/dL Procalcitonin ng/mL Urine Color YELLOW Urine Appearance CLEAR Urine pH 7.0 (5.0-8.0) Ur Specific Hercules 1.015 (1.005-1.025) Urine Protein NEG (NEG-TRACE) MG/DL Urine Glucose (UA) NEG (NEG) MG/DL Urine Ketones NEG (NEG) MG/DL Urine Blood NEG (NEG) Urine Nitrite NEG (NEG) Ur Leukocyte Esterase NEG (NEG) Coronavirus (PCR) (Negative) Influenza Type A (PCR) (Negative) Influenza Type B (PCR) (Negative) RSV RNA Qual (PCR) (Negative) ECG Data Attestation: I personally reviewed and interpreted this ECG as follows: Prior ECG tracings: available for review (10/27/2020 no acute changes on comparison) Interpretation: Sinus tachycardia, HR-127, no evidence of acute ischemia, MN/QRS/QTC are within normal limits. Discharge Plan Discharge Clinical Impression: Acute and chronic respiratory failure with hypoxia, COPD exacerbation Sepsis Qualifiers: Sepsis type: sepsis due to unspecified organism Sepsis acute organ dysfunction status: with acute organ dysfunction Severe sepsis acute organ dysfunction type: acute respiratory failure Acute respiratory failure type: with hypoxia Severe sepsis shock status: without septic shock Qualified Code(s): A41.9 - Sepsis, unspecified organism Patient Disposition: Admitted As Inpatient
[2020-11-15 21:17] VITALS: BP 83/49; PULSE 126; RESP 16; TEMP 36.9; O2SAT 92; BMI 16.4
[2020-11-15] MEDS: SODIUM CHLORIDE 1428 ML IVCONT (22:15)
[2020-11-15 22:17] LABS: Basophils Absolute Auto 0.1 X10*3/uL (0.0-0.2); Basophils Percent Auto 0.2 % (0-2); Eosinophils Absolute Auto 0.4 X10*3/uL (0.0-0.4); Eosinophils Percent Auto 1.8 % (0-4); Hematocrit 28.6 % (42-52); Hemoglobin 8.8 g/dl (14.0-18.0); Imm Gran Abs Auto 0.18 X10*3/uL (0.00-0.03); Imm Gran Pct Auto 0.9 % (0.0-0.4); Lymphocytes Absolute Auto 1.1 X10*3/uL (1.2-4.9); Lymphocytes Percent Auto 5.4 % (20-40); MANUAL DIFF FLAG SCAN; Mean Corpuscular HGB Conc 30.8 g/dl (31.0-36.0); Mean Corpuscular Hemoglobin 28.5 pg (27.0-33.0); Mean Corpuscular Volume 92.6 fL (80-98); Mean Platelet Volume 9.1 fL (9.4-12.4); Monocytes Percent Auto 9.5 % (2-11); Neutrophils Absolute Auto 17.3 X10*3/uL (2.0-8.3); Neutrophils Percent Auto 82.2 % (45-73); Platelet Count 674 X10*3/uL (160-400); Red Blood Count 3.09 X10*6/uL (4.60-5.80); Red Cell Distribution Width 18.7 % (11.0-16.0); SCAN SMEAR FLAG 1
[2020-11-15 22:21] VITALS: BP 122/77; PULSE 136; RESP 24; TEMP 36.7; O2SAT 75
[2020-11-15 22:24] LABS: Influenza A PCR NEGATIVE (Negative); Influenza B PCR NEGATIVE (Negative); Resp Syncy Virus RNA Qual PCR NEGATIVE (Negative); SARS COV2 PCR INHOUSE NEGATIVE (Negative)
[2020-11-15 22:42] LABS: Alanine Aminotransferase 42 U/L (0-40); Albumin Level 2.9 g/dL (3.5-5.0); Alkaline Phosphatase 231 U/L (39-117); Anion Gap 15 (12-20); Aspartate Amino Transferase 37 U/L (5-37); Bilirubin Total 0.4 mg/dL (0.0-1.0); Blood Urea Nitrogen 15 mg/dL (9-16); Calcium 8.1 mg/dL (8.4-10.2); Carbon Dioxide 36 mmol/L (22-29); Chloride 92 mmol/L (96-108); Creatinine Clr Calc Pharmacy 75.2; Estimated Glomerular Filt Rate > 60; Glucose Random 110 mg/dL (60-115); Potassium 4.8 mmol/L (3.3-5.1); Sodium 138 mmol/L (135-145); Total Protein 6.2 g/dL (6.5-8.0)
[2020-11-15 22:42] LABS: Lactic Acid 0.9 mmol/L (0.5-2.0)
[2020-11-15] MEDS: methylPREDNISolone Sod Succ 125 MG/2 ML VIAL IVPUSH (22:44)
[2020-11-15 22:46] LABS: B Type Natriuretic Peptide 23 pg/mL (<100)
[2020-11-15 23:02] LABS: SLIDE REVIEW VERIFIED
[2020-11-15 23:02] LABS: VBG Base Excess 13.7 mmol/L; VBG HCO3 43 mmol/L (22-26); VBG pCO2 91 mmHg; VBG pH 7.28 (7.32-7.43); VBG pO2 44 mmHg
[2020-11-15 23:07] VITALS: BP 116/70; PULSE 134; RESP 26; TEMP 36.7; O2SAT 94
[2020-11-15 23:16] LABS: Venous Blood Gas Refer to POC result
[2020-11-15] MEDS: Albuterol/Iprat 2.5/0.5MG 3 ML AMPUL.NEB INHALE (23:21)
[2020-11-15 23:22] VITALS: PULSE 138; RESP 28; O2SAT 93
[2020-11-15 23:30] VITALS: BP 105/52
[2020-11-15 23:37] LABS: C Reactive Protein 27.43 mg/dL (< or = 0.50)
[2020-11-15 23:45] VITALS: BP 107/53
[2020-11-16] VITALS (11 sets, daily range): BP systolic 90–113; BP diastolic 49–66; PULSE 78–108; RESP 15–20; TEMP 35.8–37.1; O2SAT 88–97
[2020-11-16 00:03] LABS: Procalcitonin 0.09 ng/mL
[2020-11-16] MEDS: Lidocaine 4 % Patch ADH..PATCH 1 PATCH TRANSDERMA (00:27)
[2020-11-16] MEDS: Ketorolac Tromethamine 15 MG/ML VIAL IVPUSH (00:27)
[2020-11-16] MEDS: Piperacillin Sodium/Tazobactam 3.375 GM in 0.9 % Sodium Chloride 50 ML IV (00:27)
[2020-11-16] MEDS: Acetaminophen 325 MG TABLET 975 MG PO (00:28)
[2020-11-16 00:34] LABS: Venous Blood Gas Refer to POC result
[2020-11-16 00:34] LABS: VBG Base Excess 13.4 mmol/L; VBG HCO3 39 mmol/L (22-26); VBG pCO2 60 mmHg; VBG pH 7.42 (7.32-7.43); VBG pO2 186 mmHg
[2020-11-16 01:37] LABS: Glucose Urine UA NEG (NEG); Leukocyte Esterase Urine NEG (NEG); Nitrite Urine NEG (NEG); Specific Gravity - Urine 1.015 (1.005-1.025); Urine Blood NEG (NEG); Urine Ketones NEG (NEG); Urine Protein NEG (NEG-TRACE)
[2020-11-16 01:39] LABS: Appearance Urine CLEAR; Color Urine YELLOW
[2020-11-16] MEDS: iohexoL 350 MG/ML 75 ML INFUS..BTL IV (01:39)
[2020-11-16] MEDS: Midodrine HCl 10 MG TABLET PO (03:12)
[2020-11-16] MEDS: 0.9 % Sodium Chloride 500 ML 999 ML IV (03:16)
--- NOTE | 2020-11-16 04:31 | PM.IMHP ---
History of Present Illness Date of Service: 11/16/20 Chief Complaint: Back pain This is a 65-year-old male of COPD, MA high, recent COVID-19 pneumonia, who presents to the hospital with complaints of back pain. Patient was recently hospitalized in early October and was discharged on the after being managed for on chronic hypoxic respiratory failure due to combination of COPD exacerbation and Serratia marcescens pneumonia superimposed on bronchiectasis and chronic anemia infection. At that time was treated with intravenous glucocorticoid plus azithromycin and inhaled tobramycin as well as levofloxacin. His oxygen was weaned down to his O2 baseline and was sent home with VNA services. He completed his antibiotic regimen and no antibiotic was recommended on discharge. Patient himself reports shortness of breath at baseline, coughing, producing sputum, he reports back pain 10/10, lower back, nonradiating, no injury or trauma. Denies any headache, change in vision, no abdominal pain nausea vomiting, no diarrhea, no urinary symptoms. He returns today stating that he has back pain, on arrival to the ED was have O2 level of 87% on on 2 L of oxygen. His currently on high-flow. Was also tachypneic as well as tachycardic with a heart of 130s, respiratory rate of 24, blood pressure was also soft 83/49. At some point he was also recorded to have 75% O2 on room air. He is currently on high-flow satting 97%. For WBC count 21, hemoglobin of 8.8 which is around his baseline, VBG done showed a pH of 7.28, pCO2 of 91, sodium of 138, potassium of 4.8, ALT of 42, AST of 37, alk-phos of 231, CRP of 27.43, UA negative, COVID-19 negative, influenza A/B and RSV negative. Chest CT showed stable extensive chronic changes noted within both lungs, improved area aldridge with persistent right lower lobe posterior basal segment consolidation. A glass opacification within the left lower lobe. Past medical history as below and confirmed with patient Review of Systems Review of Systems: Yes all other systems are reviewed and are negative [facility] Medical History Asthma Bronchiectasis Cocaine abuse COPD (chronic obstructive pulmonary disease) COPD (chronic obstructive pulmonary disease) COPD exacerbation COVID-19 virus infection SYED (mycobacterium avium-intracellulare) Mycobacteria, atypical Pneumonia Pneumonia Protein-calorie malnutrition, moderate Respiratory failure with hypoxia and hypercapnia Serratia marcescens infection Family History Other Family history non-contributory HTN (hypertension) Social History Household Members: Significant Other Housing: Apartment Alcohol intake: never Smoking Status: Former smoker Smoked in Last 30 Days: No Second Hand Smoke Exposure: No Use of substances other than those prescribed or required for medical reasons: No Substance Use Type: Crack/Cocaine Advance Directives: No Advance Directives Information Provided: Yes service: No Current occupational status: unemployed, retired and disabled Meds Allergies Allergy/AdvReac Type Severity Reaction Status Date / Time morphine [MORPHINE] Allergy Mild VOMITING Verified 11/13/20 13:46 Active Medications: Current Medications Generic Name Dose Route Start Last Admin Trade Name Freq PRN Reason Stop Dose Admin Acetaminophen 650 mg 11/16/20 03:49 Acetaminophen 325 Mg Tablet PO Q6H PRN Pain, Mild (Pain Scale 1-3) Acetazolamide 250 mg 11/16/20 09:00 Acetazolamide 250 Mg Tablet PO DAILY ALFONSO Albuterol Sulfate 2 puff 11/16/20 03:49 Albuterol Sulfate 90 Mcg 8 Gm Inhaler INHALE Q4-6H PRN shortness of breath or wheezing Albuterol/Ipratropium 3 ml 11/16/20 08:00 Albuterol/Iprat 2.5/0.5mg 3 Ml Ampul.Neb INHALE RQ4H WHILE AWAKE ALFONSO Albuterol/Ipratropium 3 ml 11/16/20 03:49 Albuterol/Iprat 2.5/0.5mg 3 Ml Ampul.Neb INHALE RQ4H PRN Shortness of Breath/Wheezing Aspirin 81 mg 11/16/20 09:00 Aspirin Enteric Coated 81 Mg Tablet.Dr PO DAILY [facility] Atorvastatin Calcium 20 mg 11/16/20 09:00 Atorvastatin Calcium 20 Mg Tablet PO DAILY ALFONSO Azithromycin 500 mg 11/16/20 03:49 Azithromycin 500 Mg Tablet PO Q24H [facility] Docusate Sodium 100 mg 11/16/20 03:49 Docusate Sodium 100 Mg Capsule PO DAILY PRN Constipation Fluticasone/Vilanterol 1 puff 11/16/20 09:00 Fluticasone/Vilanterol 200/25 Blst.W.Dev INHALE DAILY [facility] Gabapentin 300 mg 11/16/20 09:00 Gabapentin 300 Mg Capsule PO TID [facility] Heparin Sodium (Porcine) 5,000 unit 11/16/20 03:49 Heparin Sodium,Porcine 5,000 Unit/Ml Vial SUBCUT Q12H [facility] Hydroxyzine HCl 25 mg 11/16/20 03:49 Hydroxyzine Hcl 25 Mg Tablet PO TID PRN anxiety Methylprednisolone Sodium Succinate 40 mg 11/16/20 03:49 Methylprednisolone Sod Succ 40 Mg/Ml Vial IVPUSH Q12H [facility] Montelukast Sodium 10 mg 11/16/20 21:00 Montelukast Sodium 10 Mg Tablet PO BEDTIME [facility] Multivitamins/Vitamin C 1 tab 11/16/20 09:00 Multivitamin Tablet PO DAILY [facility] Non-Formulary Medication 150 mg 11/16/20 09:00 Bupropion Hcl PO BID [facility] Ondansetron HCl 4 mg 11/16/20 03:49 Ondansetron Hcl 4 Mg/2 Ml Vial IVPUSH Q8H PRN Nausea and Vomiting Pharmacy Consult 1 each 11/15/20 22:35 Consult Rx Perform Med Rec MISCELLANE ONCE PRN Consult order Senna 8.6 mg 11/16/20 03:49 Sennosides 8.6 Mg Tablet PO BEDTIME PRN Constipation Sodium Chloride 3 ml 11/16/20 08:00 0.9 % Sodium Chloride Flush 3 Ml Syringe IVFLUSH QSHIFT [facility] Home Medications Medication Instructions Recorded Confirmed Last Taken Type Atrovent HFA 2 puff PO QID 06/01/20 11/15/20 Unknown History albuterol sulfate 2.5 mg INHALATION QID PRN 06/01/20 11/15/20 Unknown History aspirin 81 mg PO DAILY 06/01/20 11/15/20 Unknown History atorvastatin 20 mg PO DAILY 06/01/20 11/15/20 Unknown History montelukast 10 mg PO BEDTIME 06/01/20 11/15/20 Unknown History sildenafil [Viagra] 0.5 - 1 tab PO DAILY PRN 06/01/20 11/15/20 Unknown History bupropion HCl 150 mg PO BID 08/05/20 11/15/20 Unknown History ferrous sulfate 325 mg PO DAILY 08/05/20 11/15/20 Unknown History fluticasone propionate 2 spray INTRANASAL DAILY PRN 08/05/20 11/15/20 Unknown History ketoconazole 1 appl TOPICAL 2XW 08/05/20 11/15/20 Unknown History multivitamin 1 tab PO DAILY 08/05/20 11/15/20 Unknown History sennosides [senna] 1 tab PO BEDTIME PRN 08/05/20 11/15/20 Unknown History Incruse Ellipta 1 inh INHALATION DAILY 09/03/20 11/15/20 Unknown History Breo Ellipta 1 inh INHALATION DAILY 10/10/20 11/15/20 Unknown History gabapentin 300 mg PO TID 10/10/20 11/15/20 Unknown History valsartan 40 mg PO DAILY 10/10/20 11/15/20 Unknown History hydroxyzine HCl 1 tab PO TID PRN 11/15/20 11/15/20 Unknown History Physical Exam Vital Signs and Narrative: Vital Signs: Last Vital Signs Temp 97.9 F 11/16/20 04:00 Pulse 92 11/16/20 04:00 Resp 16 11/16/20 04:00 BP 98/54 L 11/16/20 04:00 Pulse Ox 94 11/16/20 04:00 Body Mass Index 16.4 Const: Other: Cachectic General: cooperative, no acute distress and ill appearing Orientation/consciousness: patient oriented x3 Eyes: General: appearance normal, both eyes and all related structures Resp: Effort & Inspection: normal respiratory effort and able to speak in complete sentences Cardio: Rate: regular rate Rhythm: regular rhythm GI: Palpation (GI): Soft to palpation Auscultation: normal bowel sounds Skin: General skin exam: no rashes or lesions noted Neuro: General: patient oriented x3 Cognition (Neuro): normal cognition Extrem: General: Yes normal to inspection and Yes no pedal edema Results Labs CBC and Chem 7: 11/15/20 21:53 11/15/20 21:52 Labs: Laboratory Results - last 24 hr 11/15/20 11/15/20 11/15/20 21:42 21:52 21:52 MCV MCH MCHC RDW Plt Count MPV Immature Gran % (Auto) Neut % (Auto) Lymph % (Auto) [place] % (Auto) Eos % (Auto) Baso % (Auto) Lymph # (Auto) [place] # (Auto) Eos # (Auto) Baso # (Auto) Abs Immat Gran (auto) Absolute Neuts (auto) Absolute Nucleated RBC Nucleated RBC % (auto) Smear Tech's Comments VBG pH VBG pCO2 VBG pO2 VBG HCO3 VBG O2 Saturation VBG Base Excess Anion Gap 15 Estim Creat Clear Calc 75.2 Estimated GFR > 60 Random Glucose 110 Lactic Acid Calcium 8.1 L D Total Bilirubin 0.4 AST 37 D ALT 42 H Alkaline Phosphatase 231 H D C-Reactive Protein 27.43 H B-Natriuretic Peptide Total Protein 6.2 L Albumin 2.9 L Procalcitonin 0.09 Urine Color Urine Appearance Urine pH Ur Specific [place] Urine Protein Urine Glucose (UA) Urine Ketones Urine Blood Urine Nitrite Ur Leukocyte Esterase Coronavirus (PCR) NEGATIVE Influenza Type A (PCR) NEGATIVE Influenza Type B (PCR) NEGATIVE RSV RNA Qual (PCR) NEGATIVE 11/15/20 11/15/20 11/15/20 21:53 21:53 21:59 MCV 92.6 MCH 28.5 MCHC 30.8 L RDW 18.7 H Plt Count 674 H MPV 9.1 L Immature Gran % (Auto) 0.9 H Neut % (Auto) 82.2 H Lymph % (Auto) 5.4 L [place] % (Auto) 9.5 Eos % (Auto) 1.8 Baso % (Auto) 0.2 Lymph # (Auto) 1.1 L [place] # (Auto) 2.0 H Eos # (Auto) 0.4 Baso # (Auto) 0.1 Abs Immat Gran (auto) 0.18 H Absolute Neuts (auto) 17.3 H Absolute Nucleated RBC 0.000 Nucleated RBC % (auto) 0.0 Smear Tech's Comments VERIFIED VBG pH VBG pCO2 VBG pO2 VBG HCO3 VBG O2 Saturation VBG Base Excess Anion Gap Estim Creat Clear Calc Estimated GFR Random Glucose Lactic Acid 0.9 Calcium Total Bilirubin AST ALT Alkaline Phosphatase C-Reactive Protein B-Natriuretic Peptide 23 Total Protein Albumin Procalcitonin Urine Color Urine Appearance Urine pH Ur Specific [place] Urine Protein Urine Glucose (UA) Urine Ketones Urine Blood Urine Nitrite Ur Leukocyte Esterase Coronavirus (PCR) Influenza Type A (PCR) Influenza Type B (PCR) RSV RNA Qual (PCR) 11/15/20 11/16/20 11/16/20 22:55 00:27 01:25 MCV MCH MCHC RDW Plt Count MPV Immature Gran % (Auto) Neut % (Auto) Lymph % (Auto) [place] % (Auto) Eos % (Auto) Baso % (Auto) Lymph # (Auto) [place] # (Auto) Eos # (Auto) Baso # (Auto) Abs Immat Gran (auto) Absolute Neuts (auto) Absolute Nucleated RBC Nucleated RBC % (auto) Smear Tech's Comments VBG pH 7.28 L 7.42 VBG pCO2 91 60 VBG pO2 44 186 VBG HCO3 43 H 39 H VBG O2 Saturation 62.0 99.0 VBG Base Excess 13.7 13.4 Anion Gap Estim Creat Clear Calc Estimated GFR Random Glucose Lactic Acid Calcium Total Bilirubin AST ALT Alkaline Phosphatase C-Reactive Protein B-Natriuretic Peptide Total Protein Albumin Procalcitonin Urine Color YELLOW Urine Appearance CLEAR Urine pH 7.0 Ur Specific [place] 1.015 Urine Protein NEG Urine Glucose (UA) NEG Urine Ketones NEG Urine Blood NEG Urine Nitrite NEG Ur Leukocyte Esterase NEG Coronavirus (PCR) Influenza Type A (PCR) Influenza Type B (PCR) RSV RNA Qual (PCR) Imaging Radiologist's Impressions: Impressions Chest X-Ray 11/15/20 21:19 IMPRESSION: Marked chronic changes with pleural parenchymal scarring. There is some mild changes since the prior study as described above. No overwhelming new significant process to account for worsening shortness of breath. Cavitary lesion right apex unchanged. Abdomen/Pelvis CT 11/16/20 00:05 IMPRESSION: Stable extensive chronic changes noted within both lungs. Improved aeration with persistent right lower lobe posterior basal segment consolidation. Glass opacification within the left lower lobe. No acute abdominal or pelvic inflammatory or infectious processes. Moderate amount of stool within the rectum. Automated exposure control (Care Dose) Adjustment of the mA and/or kv according to patient size (this includes techniques or standardized protocols for targeted exams where dose is matched to indication / reason for exam; i.e. extremities or head). Chest CT 11/16/20 00:05 IMPRESSION: Stable extensive chronic changes noted within both lungs. Improved aeration with persistent right lower lobe posterior basal segment consolidation. Glass opacification within the left lower lobe. No acute abdominal or pelvic inflammatory or infectious processes. Moderate amount of stool within the rectum. Automated exposure control (Care Dose) Adjustment of the mA and/or kv according to patient size (this includes techniques or standardized protocols for targeted exams where dose is matched to indication / reason for exam; i.e. extremities or head). Assessment and Plan (1) Acute and chronic respiratory failure with hypoxia: Status: Acute (2) COPD exacerbation: Status: Acute (3) Protein-calorie malnutrition, moderate: Status: Acute (4) Back pain: Status: Acute (5) Sepsis: Qualifiers: Acute respiratory failure type: with hypoxia Sepsis acute organ dysfunction status: with acute organ dysfunction Sepsis type: sepsis due to unspecified organism Severe sepsis acute organ dysfunction type: acute respiratory failure Severe sepsis shock status: without septic shock Qualified Code(s): A41.9 - Sepsis, unspecified organism; R65.20 - Severe sepsis without septic shock; J96.01 - Acute respiratory failure with hypoxia Status: Acute 65-year-old male history of COPD who presents to the hospital with complaints of back pain found to be hypoxic on baseline oxygen and hypercapnic on VBG # acute on chronic hypoxic hypercapnic respiratory failure - most likely secondary to COPD exacerbation -VBG obtained showed CO2 retention as well as pH of 7.28. Patient was hypoxic on his baseline 2 L of oxygen in the 70s and 80s. - both O2 and VBG improved on high-flow - COVID-19 pneumonia - most recently admitted and treated for Serratia pneumonia as well as SYED Plan: - will start him on Solu-Medrol 40 IV b.i.d., azithromycin for COPD, - O2 supplement as required - titrate down O2 as tolerated # COPD exacerbation - hypoxic, hypercapnic, dyspnea, coughing sputum production - will start patient on Solu-Medrol 40 IV b.i.d. - DuoNeb p.r.n. - azithromycin # Sepsis - has leukocytosis, tachycardia, tachypnea although the tachycardia and tachypnea may be contributed to by back pain - received sepsis protocol IV fluids - normal lactic acid - has glass opacification on chest CT as well as consolidation that is concerning for possible empyema - patient was recently discharged after being managed for above-mentioned bacteria - at this time will start him on levofloxacin and azithromycin - consult pulmonology - follow-up cultures # back pain - Resolved with lidocaine patch # malnurished - continue dietary supplement DVT prophylaxis: Heparin subQ
[2020-11-16] MEDS: Azithromycin 500 MG TABLET PO (05:39)
[2020-11-16] MEDS: Heparin Sodium,Porcine 5,000 UNIT/ML VIAL 5000 UNIT SUBCUT (05:40)
[2020-11-16] MEDS: levoFLOXacin/D5W 750 MG/150 ML PIGGYBACK 100 MG IV (05:40)
[2020-11-16] MEDS: Albuterol/Iprat 2.5/0.5MG 3 ML AMPUL.NEB INHALE ×2 (07:21→11:03)
[2020-11-16] MEDS: Fluticasone/Vilanterol 200/25 BLST.W.DEV 1 PUFF INHALE (09:16)
[2020-11-16] MEDS: Atorvastatin Calcium 20 MG TABLET PO (09:41)
[2020-11-16] MEDS: methylPREDNISolone Sod Succ 40 MG/ML VIAL IVPUSH (09:41)
[2020-11-16] MEDS: acetaZOLAMIDE 250 MG TABLET PO (09:41)
[2020-11-16] MEDS: Gabapentin 300 MG CAPSULE PO (09:41)
[2020-11-16] MEDS: buPROPion HCl XL 300 MG TAB.ER.24H PO (09:41)
[2020-11-16] MEDS: Aspirin Enteric Coated 81 MG TABLET.DR PO (09:41)
[2020-11-16] MEDS: Multivitamin TABLET 1 TAB PO (09:41)
[2020-11-16] MEDS: 0.9 % Sodium Chloride Flush 3 ML SYRINGE IVFLUSH (09:42)
[2020-11-16] MEDS: hydrOXYzine HCL 25 MG TABLET PO (13:21)
--- NOTE | 2020-11-16 14:33 | PM.DS ---
DS: Providers Provider Date of Service: 11/16/20 Date of admission: 11/16/20 03:08 Primary care physician: Unknown Physician Consults: 11/16/20 04:40 Consult to Pulmonology Routine Consulting Provider: Kaley Lopez Reason for consultation: persistent consolidation. Empyema DS: Diagnosis Discharge Diagnosis (1) Acute and chronic respiratory failure with hypoxia: Status: Acute (2) COPD exacerbation: Status: Acute (3) Protein-calorie malnutrition, moderate: Status: Acute (4) Back pain: Status: Acute (5) Sepsis: Status: Acute DS: Medications Discharge Medications Home Medications: Home Medications Medication Instructions Recorded Confirmed Atrovent HFA 2 puff PO QID 06/01/20 11/15/20 albuterol sulfate 2.5 mg INHALATION QID PRN 06/01/20 11/15/20 aspirin 81 mg PO DAILY 06/01/20 11/15/20 atorvastatin 20 mg PO DAILY 06/01/20 11/15/20 montelukast 10 mg PO BEDTIME 06/01/20 11/15/20 sildenafil [Viagra] 0.5 - 1 tab PO DAILY PRN 06/01/20 11/15/20 bupropion HCl 150 mg PO BID 08/05/20 11/15/20 ferrous sulfate 325 mg PO DAILY 08/05/20 11/15/20 fluticasone propionate 2 spray INTRANASAL DAILY PRN 08/05/20 11/15/20 ketoconazole 1 appl TOPICAL 2XW 08/05/20 11/15/20 multivitamin 1 tab PO DAILY 08/05/20 11/15/20 sennosides [senna] 1 tab PO BEDTIME PRN 08/05/20 11/15/20 Incruse Ellipta 1 inh INHALATION DAILY 09/03/20 11/15/20 Breo Ellipta 1 inh INHALATION DAILY 10/10/20 11/15/20 gabapentin 300 mg PO TID 10/10/20 11/15/20 valsartan 40 mg PO DAILY 10/10/20 11/15/20 hydroxyzine HCl 1 tab PO TID PRN 11/15/20 11/15/20 Previous Rx's Medication Instructions Recorded ipratropium 0.5 mg-albuterol 3 mg 3 ml INHALATION QID 30 Days #360 ml 06/28/20 (2.5 mg base)/3 mL nebulization soln acetazolamide 250 mg PO DAILY #30 tab 09/08/20 prednisone See Rx Instructions .ROUTE 11/04/20 .COMPLEX #30 tab amoxicillin 875 mg-potassium 1 tab PO BID 10 Days #20 tab 11/05/20 clavulanate 125 mg tablet albuterol sulfate 90 mcg/actuation 2 puff INHALATION Q4-6H PRN 30 11/06/20 aerosol inhaler Days #1 ea DS: Summary Hospital Course Hospital Course: Patient was admitted hours ago with acute on chronic respiratory failure, he has SYED with chronic lung disease on chronic O2, frequent hospitalization was admitted this morning for SOB and just hours later is saying he feels fine and doesn't want to stay. I spoke to him with his nurse Lakesha with speak cambodian and advised to stay and understands that his condition could worsen upon leaving and that includ the possibility of . He verbalized understanding and assume all risks and ask to sign the AMA form and leave. Ask that he follow up with PCP as soon as possible and may return to ED at any time. He was sound alert and oriented to self, time, and date. He didn't wait to get any instruction but adivsed to continue usual meds. Time Spent with Patient Time attestation: Total time spent providing and/or coordinating discharge services: Discharge coordination time: Less than 30 minutes Specific discharge activities: Left AMA Physical Exam Vital Signs: Vital Signs: Last Vital Signs Temp 97.7 F 11/16/20 11:44 Pulse 99 11/16/20 11:44 Resp 18 11/16/20 11:44 BP 90/52 L 11/16/20 11:44 Pulse Ox 93 11/16/20 11:44 Body Mass Index 16.4 General: AO X 3, no acute distress, frail--this is chronic Resp: rhonchi bilaterol CVS: S1,S2,RRR GI: +BS, NT, no distention Skin: No rash Neuro: motor grossly intact Psych: appropriate affect DS: Data Data Completed and Pending Completed studies during hospitalization [Text1]: Procedures Assistance with Respiratory Ventilation, Less than 24 Consecutive Hours, Continuous Positive Airway Pressure (09/03/20) Detoxification Services for Substance Abuse Treatment (06/01/20) Insertion of Infusion Device into Superior Vena Cava, Percutaneous Approach (06/01/20) Introduction of Vasopressor into Peripheral Vein, Percutaneous Approach (06/01/20) Transfusion of Convalescent Plasma (Nonautologous) into Peripheral Vein, Percutaneous Approach, [employer] (09/03/20) Ultrasonography of Superior Vena Cava, Guidance (06/01/20) Labs on day of discharge: Laboratory Results - last 24 hr 11/15/20 11/15/20 11/15/20 21:42 21:52 21:52 WBC RBC Hgb Hct MCV MCH MCHC RDW Plt Count MPV Immature Gran % (Auto) Neut % (Auto) Lymph % (Auto) Becker % (Auto) Eos % (Auto) Baso % (Auto) Lymph # (Auto) Becker # (Auto) Eos # (Auto) Baso # (Auto) Abs Immat Gran (auto) Absolute Neuts (auto) Absolute Nucleated RBC Nucleated RBC % (auto) Smear Tech's Comments VBG pH VBG pCO2 VBG pO2 VBG HCO3 VBG O2 Saturation VBG Base Excess Sodium 138 Potassium 4.8 Chloride 92 L Carbon Dioxide 36 H Anion Gap 15 BUN 15 Creatinine 0.65 Estim Creat Clear Calc 75.2 Estimated GFR > 60 Random Glucose 110 Lactic Acid Calcium 8.1 L D Total Bilirubin 0.4 AST 37 D ALT 42 H Alkaline Phosphatase 231 H D C-Reactive Protein 27.43 H B-Natriuretic Peptide Total Protein 6.2 L Albumin 2.9 L Procalcitonin 0.09 Urine Color Urine Appearance Urine pH Ur Specific [place] Urine Protein Urine Glucose (UA) Urine Ketones Urine Blood Urine Nitrite Ur Leukocyte Esterase Coronavirus (PCR) NEGATIVE Influenza Type A (PCR) NEGATIVE Influenza Type B (PCR) NEGATIVE RSV RNA Qual (PCR) NEGATIVE 11/15/20 11/15/20 11/15/20 21:53 21:53 21:59 WBC 21.0 H RBC 3.09 L Hgb 8.8 L Hct 28.6 L MCV 92.6 MCH 28.5 MCHC 30.8 L RDW 18.7 H Plt Count 674 H MPV 9.1 L Immature Gran % (Auto) 0.9 H Neut % (Auto) 82.2 H Lymph % (Auto) 5.4 L Becker % (Auto) 9.5 Eos % (Auto) 1.8 Baso % (Auto) 0.2 Lymph # (Auto) 1.1 L Becker # (Auto) 2.0 H Eos # (Auto) 0.4 Baso # (Auto) 0.1 Abs Immat Gran (auto) 0.18 H Absolute Neuts (auto) 17.3 H Absolute Nucleated RBC 0.000 Nucleated RBC % (auto) 0.0 Smear Tech's Comments VERIFIED VBG pH VBG pCO2 VBG pO2 VBG HCO3 VBG O2 Saturation VBG Base Excess Sodium Potassium Chloride Carbon Dioxide Anion Gap BUN Creatinine Estim Creat Clear Calc Estimated GFR Random Glucose Lactic Acid 0.9 Calcium Total Bilirubin AST ALT Alkaline Phosphatase C-Reactive Protein B-Natriuretic Peptide 23 Total Protein Albumin Procalcitonin Urine Color Urine Appearance Urine pH Ur Specific [place] Urine Protein Urine Glucose (UA) Urine Ketones Urine Blood Urine Nitrite Ur Leukocyte Esterase Coronavirus (PCR) Influenza Type A (PCR) Influenza Type B (PCR) RSV RNA Qual (PCR) 11/15/20 11/16/20 11/16/20 22:55 00:27 01:25 WBC RBC Hgb Hct MCV MCH MCHC RDW Plt Count MPV Immature Gran % (Auto) Neut % (Auto) Lymph % (Auto) Becker % (Auto) Eos % (Auto) Baso % (Auto) Lymph # (Auto) Becker # (Auto) Eos # (Auto) Baso # (Auto) Abs Immat Gran (auto) Absolute Neuts (auto) Absolute Nucleated RBC Nucleated RBC % (auto) Smear Tech's Comments VBG pH 7.28 L 7.42 VBG pCO2 91 60 VBG pO2 44 186 VBG HCO3 43 H 39 H VBG O2 Saturation 62.0 99.0 VBG Base Excess 13.7 13.4 Sodium Potassium Chloride Carbon Dioxide Anion Gap BUN Creatinine Estim Creat Clear Calc Estimated GFR Random Glucose Lactic Acid Calcium Total Bilirubin AST ALT Alkaline Phosphatase C-Reactive Protein B-Natriuretic Peptide Total Protein Albumin Procalcitonin Urine Color YELLOW Urine Appearance CLEAR Urine pH 7.0 Ur Specific [place] 1.015 Urine Protein NEG Urine Glucose (UA) NEG Urine Ketones NEG Urine Blood NEG Urine Nitrite NEG Ur Leukocyte Esterase NEG Coronavirus (PCR) Influenza Type A (PCR) Influenza Type B (PCR) RSV RNA Qual (PCR) Discharge Plan Discharge Anticipated Discharge Date/Time: 11/16/20 14:42 Patient Disposition: Left Against Medical Advice Referrals: Physician,Unknown [Primary Care Provider] - Discharge Medications: No Action ipratropium-albuterol 0.5 mg-3 mg(2.5 mg base)/3 mL solution for nebulization 3 ml inhalation QID 30 Days Qty: 360 RF: 6 amoxicillin-pot clavulanate [Augmentin] 875-125 mg tablet 1 tab PO BID 10 Days Qty: 20 RF: 0 albuterol sulfate 90 mcg/actuation HFA aerosol inhaler 2 puff inhalation Q4-6H PRN (Reason: shortness of breath or wheezing) 30 Days Qty: 1 RF: 6 Incruse Ellipta 62.5 mcg/actuation Blister With Device 1 inh INHALATION DAILY RF: 0 acetazolamide 250 mg Tablet 250 mg PO DAILY Qty: 30 RF: 0 valsartan 40 mg Tablet 40 mg PO DAILY RF: 0 Breo Ellipta 200-25 mcg/dose Blister With Device 1 inh INHALATION DAILY RF: 0 gabapentin 300 mg Capsule 300 mg PO TID RF: 0 hydroxyzine HCl 25 mg tablet 1 tab PO TID PRN (Reason: anxiety) RF: 0 atorvastatin 20 mg tablet 20 mg PO DAILY RF: 0 albuterol sulfate 2.5 mg /3 mL (0.083 %) solution for nebulization 2.5 mg inhalation QID PRN (Reason: Wheezing) RF: 0 aspirin 81 mg tablet,delayed release (DR/EC) 81 mg PO DAILY RF: 0 sildenafil [Viagra] 100 mg tablet 0.5 - 1 tab PO DAILY PRN (Reason: Erectile Dysfunction) RF: 0 montelukast 10 mg tablet 10 mg PO BEDTIME RF: 0 Atrovent HFA 17 mcg/actuation HFA aerosol inhaler 2 puff PO QID RF: 0 multivitamin Tablet 1 tab PO DAILY RF: 0 bupropion HCl 150 mg tablet sustained-release 12 hr 150 mg PO BID RF: 0 sennosides [senna] 8.6 mg tablet 1 tab PO BEDTIME PRN (Reason: Constipation) RF: 0 ketoconazole 2 % shampoo 1 appl topical 2XW RF: 0 ferrous sulfate 325 mg (65 mg iron) tablet 325 mg PO DAILY RF: 0 fluticasone propionate 50 mcg/actuation spray,suspension 2 spray intranasal DAILY PRN (Reason: Nasal Congestion) RF: 0 prednisone 10 mg tablet See Rx Instructions .ROUTE .COMPLEX Qty: 30 RF: 0 Discharge Orders: Discharge Order (Routine); Ordered 11/16/20 Ordered By: Mohsen Penaloza Care Plan Goals: Left against medical advice Health Concerns: Left against medical advice Plan of Treatment: Left against medical advice
--- NOTE | 2020-11-16 14:42 | PC.NURSE ---
Patient adamant about being discharged. Engine Testing Supervisor at bedside with hospitalist. Explained to patient the importance of staying in hospital for 1 more day for observation. Patient verbalizes understanding, yet still insists on leaving AMA. AMA signed, patient off unit around 1430.
== END 2020-11-16 14:30 | disposition left against medical advice (07) | DRG 871 ==
LOC: HO.ED 11-16 01:23 → HO.EDOVER 11-16 05:05 → HO.S3 11-16 05:31
PROVIDERS: Admitting Provider Internal Medicine; Emergency Provider Student in an Organized Health Care Education/Training Program; PCP Internal Medicine; Visit Provider Internal Medicine
DX: A41.9 Sepsis, unspecified organism (principal); J96.21 Acute and chronic respiratory failure with hypoxia; J44.1 Chronic obstructive pulmonary disease with (acute) exacerbation; E44.0 Moderate protein-calorie malnutrition; Z68.1 Body mass index [BMI] 19.9 or less, adult; M54.9 Dorsalgia, unspecified; R65.20 Severe sepsis without septic shock; Z20.822 Contact with and (suspected) exposure to COVID-19; Z86.16 Personal history of COVID-19; Z87.891 Personal history of nicotine dependence; Z88.5 Allergy status to narcotic agent; Z79.51 Long term (current) use of inhaled steroids; Z79.52 Long term (current) use of systemic steroids; Z79.82 Long term (current) use of aspirin; Z79.899 Other long term (current) drug therapy
CPT/HCPCS: 0241U; 36415; 71045; 71260; 74177; 80053; 81003; 83605; 83880; 84145; 85025; 86140; 87040; 93005; 94640; 96361; 96365; 96375; 99212; 99285; J1885; J1956; J2543; J2920; J2930; Q9967

== ENCOUNTER 2020-11-19 15:30 | Emergency (ER) | payer OTHER, SELFPAY ==
--- NOTE | ~2020-11-19 | XR_ITS ---
EXAMINATION: XR CHEST CLINICAL INFORMATION: Shortness of breath COMPARISON: Previous chest x-rays most recent 11/14/[address] 11/16/2020 TECHNIQUE: Frontal view of the chest was obtained. FINDINGS: The cardiac and mediastinal contours are stable. There is volume loss to both upper lobes. There is bilateral upper lobe pleural parenchymal disease. This appears unchanged from previous exams. Bullous or cystic or cavitary areas in both upper lobes are seen. There is a atelectasis or small infiltrate at the right lateral lung base that is unchanged. There is no pleural effusion or pneumothorax. Bony structures are unremarkable. XR/XR chest 1V IMPRESSION: Stable bilateral upper lobe volume loss and pleural-parenchymal disease from recent exams.
[2020-11-19 15:59] VITALS: BP 120/72; PULSE 130; RESP 24; TEMP 37.3; O2SAT 93; BMI 17.4
--- NOTE | 2020-11-19 16:21 | ECG_ITS ---
Test Reason : TACHYCARDIA Blood Pressure : / mmHG Vent. Rate : 126 BPM Atrial Rate : 126 BPM P-R Int : 122 ms QRS Dur : 088 ms QT Int : 300 ms P-R-T Axes : 080 -28 074 degrees QTc Int : 434 ms Sinus tachycardia Otherwise normal ECG When compared with ECG of 15-NOV-2020 21:14, Premature ventricular complexes are no longer Present Referred By: Elly Ramírez Electronically Signed By:Joseph Uribe
--- NOTE | 2020-11-19 16:46 | ED_ITS ---
HPI - SOB/Dyspnea General Chief Complaint: Dyspnea Stated Complaint: ?SEPSIS ALERT,DIFF BREATHING Time Seen by Provider: 11/19/20 16:06 History of Present Illness HPI Narrative: Patient is 65 years old with a history of acute on chronic renal insufficiencies. Chronically on oxygen. Left AMA from the hospital 2 days ago. Presented today with having chronic shortness of breath. Patient also noted increased heart rate. Patient claims this is also baseline. Also complaining that his blood pressure was low when his home health aide measured it. Patient denies any chest pain any shortness of breath any dizziness any nausea vomiting that is out of the ordinary for him. Denies any coughing congestion. No fever no chills. No chest pain. No leg swelling. No history of blood clots. Patient from home.. MD elicited complaint: shortness of breath Related Data Home Medications Medication Instructions Recorded Confirmed Atrovent HFA 2 puff PO QID 06/01/20 11/15/20 albuterol sulfate 2.5 mg INHALATION QID PRN 06/01/20 11/15/20 aspirin 81 mg PO DAILY 06/01/20 11/15/20 atorvastatin 20 mg PO DAILY 06/01/20 11/15/20 montelukast 10 mg PO BEDTIME 06/01/20 11/15/20 sildenafil [Viagra] 0.5 - 1 tab PO DAILY PRN 06/01/20 11/15/20 bupropion HCl 150 mg PO BID 08/05/20 11/15/20 ferrous sulfate 325 mg PO DAILY 08/05/20 11/15/20 fluticasone propionate 2 spray INTRANASAL DAILY PRN 08/05/20 11/15/20 ketoconazole 1 appl TOPICAL 2XW 08/05/20 11/15/20 multivitamin 1 tab PO DAILY 08/05/20 11/15/20 sennosides [senna] 1 tab PO BEDTIME PRN 08/05/20 11/15/20 Incruse Ellipta 1 inh INHALATION DAILY 09/03/20 11/15/20 Breo Ellipta 1 inh INHALATION DAILY 10/10/20 11/15/20 gabapentin 300 mg PO TID 10/10/20 11/15/20 valsartan 40 mg PO DAILY 10/10/20 11/15/20 hydroxyzine HCl 1 tab PO TID PRN 11/15/20 11/15/20 Previous Rx's Medication Instructions Recorded ipratropium 0.5 mg-albuterol 3 mg 3 ml INHALATION QID 30 Days #360 ml 06/28/20 (2.5 mg base)/3 mL nebulization soln acetazolamide 250 mg PO DAILY #30 tab 09/08/20 prednisone See Rx Instructions .ROUTE 11/04/20 .COMPLEX #30 tab amoxicillin 875 mg-potassium 1 tab PO BID 10 Days #20 tab 11/05/20 clavulanate 125 mg tablet albuterol sulfate 90 mcg/actuation 2 puff INHALATION Q4-6H PRN 30 11/06/20 aerosol inhaler Days #1 ea Allergies Allergy/AdvReac Type Severity Reaction Status Date / Time morphine [MORPHINE] Allergy Mild VOMITING Verified 11/13/20 13:46 Review of Systems Review of Systems: Constitutional: No Weight loss, No Fever, No Chills, No Night Sweats, No Fatigue, No Malaise ENT/Mouth: No Hearing loss, No Ear Pain, No Nasal Congestion, No Sinus Pain, No Hoarseness, No sore throat, No Rhinorrhea, No Swallowing Difficulty Eyes: No Eye Pain, No Swelling, No Redness, No Foreign Body, No Discharge, No Vision Changes Cardiovascular: No Chest Pain, positive SOB, No Dyspnea on Exertion, No Orthopnea, No Edema, positive palpitation Respiratory: No Cough, No Sputum, No Wheezing, No Smoke Exposure, No Dyspnea Gastrointestinal: No Nausea, No Vomiting, No Diarrhea, No Constipation, No abdominal Pain, No Hematochezia, No Melena Genitourinary: no irregular bleeding, No Dysuria, No Urinary Frequency, No Hematuria, No Urinary Incontinence, No Urgency, No Flank Pain, No Urinary Flow Changes, No Hesitancy Musculoskeletal: No joint pain, No Myalgias, No Joint Swelling Skin: No Skin Lesions, No rash Neuro: No Weakness, No Numbness, No Paresthesias, No Loss of Consciousness, No Dizziness, No Headache Psych: No Anxiety/Panic, No Depression, No SI/HI/AH/VH, No Social Issues, Heme/Lymph: No Bruising, No Bleeding,No Lymphadenopathy Endocrine: No Polyuria, No Polydipsia, No Temperature Intolerance [facility] Past Medical History Attestation statement: The following information was validated with the patient. Medical History Asthma Bronchiectasis Cocaine abuse COPD (chronic obstructive pulmonary disease) COPD (chronic obstructive pulmonary disease) COPD exacerbation COVID-19 virus infection SYED (mycobacterium avium-intracellulare) Mycobacteria, atypical Pneumonia Pneumonia Protein-calorie malnutrition, moderate Respiratory failure with hypoxia and hypercapnia Serratia marcescens infection Family History Family History Other Family history non-contributory HTN (hypertension) Social History Social History Household Members: Significant Other Housing: House Alcohol intake: unknown Smoking Status: Former smoker Tobacco Type: Cigarette Packs Per Day: 2 Cigarettes Per Day: 40.0 Second Hand Smoke Exposure: No Use of substances other than those prescribed or required for medical reasons: Unknown Substance Use Type: Crack/Cocaine Advance Directives: No Advance Directives Information Provided: Yes service: No Current occupational status: unemployed, retired and disabled Physical Exam Vital Signs: Vital Signs: Last Vital Signs Temp 98.2 F 11/19/20 19:46 Pulse 113 H 11/19/20 20:00 Resp 20 11/19/20 20:00 BP 121/69 11/19/20 20:00 Pulse Ox 94 11/19/20 20:00 Body Mass Index 17.4 Appearance: Alert. Oriented X3. No acute distress. Eyes: Pupils equal, round and reactive to light. ENT: Pharynx normal. Neck: Normal inspection. Neck supple. No lymph nodes noted. No crepitus CVS: Tachycardic but regular Respiratory: Diminished breath sounds bilaterally Abdomen: Soft and nontender. No rigidity. No distention. good BS x4 Skin: Skin warm and dry. Normal skin color. Normal skin turgor. Extremities: No lower extremity edema. Neurovascular intact to all extremities. No Lacerations. No Rash Neuro: Oriented X 3. No motor deficit. No sensory deficit. Moving all extermities. No slurred speech MDM - SOB/Dyspnea MDM Narrative Medical decision making narrative: Patient has an elevated white count of 19 but this is chronic. The viral panel was negative. Coronavirus test was negative RSV negative flu negative. Patient did not feel short of breath. O2 sat is 92% on 2.5 L which is patient's baseline. Patient's ABG showed no signs of acute CO2 retention. Patient has pCO2 was 60 this is actually improved from previous. His retention is chronic. No fever no chills. Heart rate came down to 100 after IV fluids. Chest x-ray showed no acute infiltrate. Will discharge patient home. In stable condition. Patient's troponin negative BNP negative no evidence for [facility] no evidence for CHF. Lab Data Result diagrams: 11/19/20 16:57 11/19/20 16:57 Labs: Lab Results 11/19/20 11/19/20 11/19/20 Range/Units 16:57 16:57 16:57 WBC 19.0 H (4.8-10.8) X10*3/uL RBC 3.28 L (4.60-5.80) X10*6/uL Hgb 9.2 L (14.0-18.0) g/dl Hct 30.2 L (42-52) % MCV 92.1 (80-98) fL MCH 28.0 (27.0-33.0) pg MCHC 30.5 L (31.0-36.0) g/dl RDW 18.2 H (11.0-16.0) % Plt Count 640 H (160-400) X10*3/uL MPV 9.1 L (9.4-12.4) fL Immature Gran % (Auto) 0.8 H (0.0-0.4) % Neut % (Auto) 84.1 H (45-73) % Lymph % (Auto) 6.2 L (20-40) % Young % (Auto) 7.6 (2-11) % Eos % (Auto) 1.1 (0-4) % Baso % (Auto) 0.2 (0-2) % Lymph # (Auto) 1.2 (1.2-4.9) X10*3/uL Young # (Auto) 1.5 H (0.1-1.2) X10*3/uL Eos # (Auto) 0.2 (0.0-0.4) X10*3/uL Baso # (Auto) 0.0 (0.0-0.2) X10*3/uL Abs Immat Gran (auto) 0.16 H (0.00-0.03) X10*3/uL Absolute Neuts (auto) 16.0 H (2.0-8.3) X10*3/uL Absolute Nucleated RBC 0.000 (0.0-0.012) X10*3/uL Nucleated RBC % (auto) 0.0 (0.0-0.2) /100WBC Hold Blue Top SEE NOTE O2 Saturation % ABG pH at Pt Temp (7.35-7.45) ABG pH (Temp Correct) (7.35-7.45) ABG pCO2 at Pt Temp (32-45) mmHg ABG pCO2 (Temp Corrct (32-45) mmHg ABG pO2 at Pt Temp (83-108) mmHg ABG pO2 (Temp Correct (83-108) ABG HCO3 (22-26) mmol/L ABG Base Excess (Actual) mmol/L Sodium 138 (135-145) mmol/L Potassium 4.5 (3.3-5.1) mmol/L Chloride 94 L (96-108) mmol/L Carbon Dioxide 34 H (22-29) mmol/L Anion Gap 15 (12-20) BUN 12 (9-16) mg/dL Creatinine 0.55 (0.5-1.4) mg/dL Estim Creat Clear Calc 85.9 Estimated GFR > 60 Random Glucose 100 (60-115) mg/dL Lactic Acid (0.5-2.0) mmol/L Calcium 7.9 L (8.4-10.2) mg/dL Troponin I High Sens (<3.5-35.0) ng/L B-Natriuretic Peptide (<100) pg/mL Urine Color Urine Appearance Urine pH (5.0-8.0) Ur Specific Rattan (1.005-1.025) Urine Protein (NEG-TRACE) MG/DL Urine Glucose (UA) (NEG) MG/DL Urine Ketones (NEG) MG/DL Urine Blood (NEG) Urine Nitrite (NEG) Ur Leukocyte Esterase (NEG) Coronavirus (PCR) (Negative) Influenza Type A (PCR) (Negative) Influenza Type B (PCR) (Negative) RSV RNA Qual (PCR) (Negative) 11/19/20 11/19/20 11/19/20 Range/Units 16:57 16:57 16:57 WBC (4.8-10.8) X10*3/uL RBC (4.60-5.80) X10*6/uL Hgb (14.0-18.0) g/dl Hct (42-52) % MCV (80-98) fL MCH (27.0-33.0) pg MCHC (31.0-36.0) g/dl RDW (11.0-16.0) % Plt Count (160-400) X10*3/uL MPV (9.4-12.4) fL Immature Gran % (Auto) (0.0-0.4) % Neut % (Auto) (45-73) % Lymph % (Auto) (20-40) % Young % (Auto) (2-11) % Eos % (Auto) (0-4) % Baso % (Auto) (0-2) % Lymph # (Auto) (1.2-4.9) X10*3/uL Young # (Auto) (0.1-1.2) X10*3/uL Eos # (Auto) (0.0-0.4) X10*3/uL Baso # (Auto) (0.0-0.2) X10*3/uL Abs Immat Gran (auto) (0.00-0.03) X10*3/uL Absolute Neuts (auto) (2.0-8.3) X10*3/uL Absolute Nucleated RBC (0.0-0.012) X10*3/uL Nucleated RBC % (auto) (0.0-0.2) /100WBC Hold Blue Top O2 Saturation % ABG pH at Pt Temp (7.35-7.45) ABG pH (Temp Correct) (7.35-7.45) ABG pCO2 at Pt Temp (32-45) mmHg ABG pCO2 (Temp Corrct (32-45) mmHg ABG pO2 at Pt Temp (83-108) mmHg ABG pO2 (Temp Correct (83-108) ABG HCO3 (22-26) mmol/L ABG Base Excess (Actual) mmol/L Sodium (135-145) mmol/L Potassium (3.3-5.1) mmol/L Chloride (96-108) mmol/L Carbon Dioxide (22-29) mmol/L Anion Gap (12-20) BUN (9-16) mg/dL Creatinine (0.5-1.4) mg/dL Estim Creat Clear Calc Estimated GFR Random Glucose (60-115) mg/dL Lactic Acid 1.4 (0.5-2.0) mmol/L Calcium (8.4-10.2) mg/dL Troponin I High Sens < 3.5 (<3.5-35.0) ng/L B-Natriuretic Peptide 17 (<100) pg/mL Urine Color Urine Appearance Urine pH (5.0-8.0) Ur Specific Rattan (1.005-1.025) Urine Protein (NEG-TRACE) MG/DL Urine Glucose (UA) (NEG) MG/DL Urine Ketones (NEG) MG/DL Urine Blood (NEG) Urine Nitrite (NEG) Ur Leukocyte Esterase (NEG) Coronavirus (PCR) NEGATIVE (Negative) Influenza Type A (PCR) NEGATIVE (Negative) Influenza Type B (PCR) NEGATIVE (Negative) RSV RNA Qual (PCR) NEGATIVE (Negative) 11/19/20 11/19/20 Range/Units 17:07 17:57 WBC (4.8-10.8) X10*3/uL RBC (4.60-5.80) X10*6/uL Hgb (14.0-18.0) g/dl Hct (42-52) % MCV (80-98) fL MCH (27.0-33.0) pg MCHC (31.0-36.0) g/dl RDW (11.0-16.0) % Plt Count (160-400) X10*3/uL MPV (9.4-12.4) fL Immature Gran % (Auto) (0.0-0.4) % Neut % (Auto) (45-73) % Lymph % (Auto) (20-40) % Young % (Auto) (2-11) % Eos % (Auto) (0-4) % Baso % (Auto) (0-2) % Lymph # (Auto) (1.2-4.9) X10*3/uL Young # (Auto) (0.1-1.2) X10*3/uL Eos # (Auto) (0.0-0.4) X10*3/uL Baso # (Auto) (0.0-0.2) X10*3/uL Abs Immat Gran (auto) (0.00-0.03) X10*3/uL Absolute Neuts (auto) (2.0-8.3) X10*3/uL Absolute Nucleated RBC (0.0-0.012) X10*3/uL Nucleated RBC % (auto) (0.0-0.2) /100WBC Hold Blue Top O2 Saturation 90.0 % ABG pH at Pt Temp 7.38 (7.35-7.45) ABG pH (Temp Correct) 7.38 (7.35-7.45) ABG pCO2 at Pt Temp 60 H* (32-45) mmHg ABG pCO2 (Temp Corrct 62 H* (32-45) mmHg ABG pO2 at Pt Temp 66 L (83-108) mmHg ABG pO2 (Temp Correct 67 L (83-108) ABG HCO3 36 H (22-26) mmol/L ABG Base Excess (Actual) 9.7 mmol/L Sodium (135-145) mmol/L Potassium (3.3-5.1) mmol/L Chloride (96-108) mmol/L Carbon Dioxide (22-29) mmol/L Anion Gap (12-20) BUN (9-16) mg/dL Creatinine (0.5-1.4) mg/dL Estim Creat Clear Calc Estimated GFR Random Glucose (60-115) mg/dL Lactic Acid (0.5-2.0) mmol/L Calcium (8.4-10.2) mg/dL Troponin I High Sens (<3.5-35.0) ng/L B-Natriuretic Peptide (<100) pg/mL Urine Color YELLOW Urine Appearance CLEAR Urine pH 6.0 (5.0-8.0) Ur Specific Rattan 1.025 (1.005-1.025) Urine Protein NEG (NEG-TRACE) MG/DL Urine Glucose (UA) NEG (NEG) MG/DL Urine Ketones NEG (NEG) MG/DL Urine Blood NEG (NEG) Urine Nitrite NEG (NEG) Ur Leukocyte Esterase NEG (NEG) Coronavirus (PCR) (Negative) Influenza Type A (PCR) (Negative) Influenza Type B (PCR) (Negative) RSV RNA Qual (PCR) (Negative) ABG Data ABG results: ABG results consistent with having chronic CO2 retention Attestation: I personally reviewed and interpreted this ABG as follows: ECG Data Attestation: I personally reviewed and interpreted this ECG as follows: Interpretation: Sinus heart rate of [address] segment elevation noted. CT QRS QT within normal limits Discharge Plan Discharge Clinical Impression: Acute and chronic respiratory failure Patient Disposition: Home, Self-Care Instructions: COPD (Chronic Obstructive Pulmonary Disease) (ED) Prescriptions: No Action ipratropium-albuterol 0.5 mg-3 mg(2.5 mg base)/3 mL solution for nebulization 3 ml inhalation QID 30 Days Qty: 360 RF: 6 amoxicillin-pot clavulanate [Augmentin] 875-125 mg tablet 1 tab PO BID 10 Days Qty: 20 RF: 0 albuterol sulfate 90 mcg/actuation HFA aerosol inhaler 2 puff inhalation Q4-6H PRN (Reason: shortness of breath or wheezing) 30 Days Qty: 1 RF: 6 Incruse Ellipta 62.5 mcg/actuation Blister With Device 1 inh INHALATION DAILY RF: 0 acetazolamide 250 mg Tablet 250 mg PO DAILY Qty: 30 RF: 0 valsartan 40 mg Tablet 40 mg PO DAILY RF: 0 Breo Ellipta 200-25 mcg/dose Blister With Device 1 inh INHALATION DAILY RF: 0 gabapentin 300 mg Capsule 300 mg PO TID RF: 0 hydroxyzine HCl 25 mg tablet 1 tab PO TID PRN (Reason: anxiety) RF: 0 atorvastatin 20 mg tablet 20 mg PO DAILY RF: 0 albuterol sulfate 2.5 mg /3 mL (0.083 %) solution for nebulization 2.5 mg inhalation QID PRN (Reason: Wheezing) RF: 0 aspirin 81 mg tablet,delayed release (DR/EC) 81 mg PO DAILY RF: 0 sildenafil [Viagra] 100 mg tablet 0.5 - 1 tab PO DAILY PRN (Reason: Erectile Dysfunction) RF: 0 montelukast 10 mg tablet 10 mg PO BEDTIME RF: 0 Atrovent HFA 17 mcg/actuation HFA aerosol inhaler 2 puff PO QID RF: 0 multivitamin Tablet 1 tab PO DAILY RF: 0 bupropion HCl 150 mg tablet sustained-release 12 hr 150 mg PO BID RF: 0 sennosides [senna] 8.6 mg tablet 1 tab PO BEDTIME PRN (Reason: Constipation) RF: 0 ketoconazole 2 % shampoo 1 appl topical 2XW RF: 0 ferrous sulfate 325 mg (65 mg iron) tablet 325 mg PO DAILY RF: 0 fluticasone propionate 50 mcg/actuation spray,suspension 2 spray intranasal DAILY PRN (Reason: Nasal Congestion) RF: 0 prednisone 10 mg tablet See Rx Instructions .ROUTE .COMPLEX Qty: 30 RF: 0 Referrals: Physician,Unknown [Primary Care Provider] - 2 days Print Language: [place]
--- NOTE | 2020-11-19 17:01 | PC.NURSE ---
PATIENT'S DAUGHTER EMANUEL VEGA CALLS AT THIS TIME FOR UPDATE. RN UNABLE TO TAKE CALL AND REQUESTS CALL BACK NUMBER.
[2020-11-19 17:05] LABS: MANUAL DIFF FLAG NO
[2020-11-19 17:11] LABS: Basophils Percent Auto 0.2 % (0-2); Eosinophils Absolute Auto 0.2 X10*3/uL (0.0-0.4); Eosinophils Percent Auto 1.1 % (0-4); Hematocrit 30.2 % (42-52); Hemoglobin 9.2 g/dl (14.0-18.0); Imm Gran Abs Auto 0.16 X10*3/uL (0.00-0.03); Imm Gran Pct Auto 0.8 % (0.0-0.4); Lymphocytes Absolute Auto 1.2 X10*3/uL (1.2-4.9); Lymphocytes Percent Auto 6.2 % (20-40); Mean Corpuscular HGB Conc 30.5 g/dl (31.0-36.0); Mean Corpuscular Volume 92.1 fL (80-98); Mean Platelet Volume 9.1 fL (9.4-12.4); Monocytes Absolute Auto 1.5 X10*3/uL (0.1-1.2); Monocytes Percent Auto 7.6 % (2-11); Neutrophils Percent Auto 84.1 % (45-73); Platelet Count 640 X10*3/uL (160-400); Red Blood Count 3.28 X10*6/uL (4.60-5.80); Red Cell Distribution Width 18.2 % (11.0-16.0)
[2020-11-19] MEDS: methylPREDNISolone Sod Succ 125 MG/2 ML VIAL IVPUSH (17:11)
[2020-11-19] MEDS: 0.9 % Sodium Chloride 1,000 ML 999 ML IV (17:11)
[2020-11-19 17:16] LABS: Glucose Urine UA NEG (NEG); Leukocyte Esterase Urine NEG (NEG); Nitrite Urine NEG (NEG); Specific Gravity - Urine 1.025 (1.005-1.025); Urine Blood NEG (NEG); Urine Ketones NEG (NEG); Urine Protein NEG (NEG-TRACE)
[2020-11-19 17:19] LABS: Appearance Urine CLEAR; Color Urine YELLOW
[2020-11-19 17:37] LABS: Lactic Acid 1.4 mmol/L (0.5-2.0)
[2020-11-19 17:41] LABS: Anion Gap 15 (12-20); Blood Urea Nitrogen 12 mg/dL (9-16); Calcium 7.9 mg/dL (8.4-10.2); Carbon Dioxide 34 mmol/L (22-29); Chloride 94 mmol/L (96-108); Creatinine Clr Calc Pharmacy 85.9; Estimated Glomerular Filt Rate > 60; Glucose Random 100 mg/dL (60-115); Potassium 4.5 mmol/L (3.3-5.1); Sodium 138 mmol/L (135-145)
[2020-11-19 17:47] LABS: B Type Natriuretic Peptide 17 pg/mL (<100); Troponin-I High Sensitivity < 3.5 ng/L (<3.5-35.0)
[2020-11-19 17:49] LABS: Influenza A PCR NEGATIVE (Negative); Influenza B PCR NEGATIVE (Negative); Resp Syncy Virus RNA Qual PCR NEGATIVE (Negative); SARS COV2 PCR INHOUSE NEGATIVE (Negative)
[2020-11-19 18:04] LABS: ABG Refer to POC result
[2020-11-19 18:06] LABS: ABG Base Excess 9.7 mmol/L; ABG HCO3 36 mmol/L (22-26); ABG pCO2 60 mmHg (32-45); ABG pCO2 TC 62 mmHg (32-45); ABG pH 7.38 (7.35-7.45); ABG pH TC 7.38 (7.35-7.45); ABG pO2 66 mmHg (83-108); ABG pO2 TC 67 (83-108)
--- NOTE | 2020-11-19 19:22 | ECG_ITS ---
Test Reason : REPEAT Blood Pressure : / mmHG Vent. Rate : 114 BPM Atrial Rate : 114 BPM P-R Int : 128 ms QRS Dur : 088 ms QT Int : 324 ms P-R-T Axes : 079 -25 074 degrees QTc Int : 446 ms Sinus tachycardia Otherwise normal ECG When compared with ECG of 19-NOV-2020 16:38, No significant change was found Referred By: Elly Ramírez Electronically Signed By:Joseph Uribe
[2020-11-19 19:46] VITALS: BP 113/71; PULSE 93; RESP 22; TEMP 36.8; O2SAT 93
[2020-11-19 20:00] VITALS: BP 121/69; PULSE 113; RESP 20; O2SAT 94
[2020-11-19] MEDS: LORazepam 1 MG TABLET PO (20:23)
[2020-11-19] MEDS: 0.9 % Sodium Chloride 500 ML 999 ML IV (20:23)
[2020-11-19 21:17] VITALS: BP 98/65; PULSE 104; RESP 22; TEMP 36.8; O2SAT 93
--- NOTE | 2020-11-19 21:52 | PC.NURSE ---
Patient states that he has no ride home . This freelance copywriter spoke with patient's to let her know that patient needed a ride home because he was being discharged from the hospital. Patient's family member stated that she wanted to speak with the cloth stretcher. She stated she couldn't pick patient up and stated if he was sent home she was going to send him back to the Emergency room with the ambulance
== END 2020-11-19 22:26 | disposition home or self-care (01) ==
PROVIDERS: Emergency Provider Emergency Medicine Emergency Medical Services; PCP Nurse Practitioner Family
DX: J96.20 Acute and chronic respiratory failure, unspecified whether with hypoxia or hypercapnia (principal); F14.90 Cocaine use, unspecified, uncomplicated; Z20.822 Contact with and (suspected) exposure to COVID-19; Z87.891 Personal history of nicotine dependence; Z86.16 Personal history of COVID-19; Z79.899 Other long term (current) drug therapy; Z79.82 Long term (current) use of aspirin
CPT/HCPCS: 0241U; 36415; 71045; 80048; 81003; 83605; 83880; 84484; 85025; 87040; 93005; 96365; 96375; 99284; J2930

== ENCOUNTER → 2020-11-21 14:36 | Outpatient (BNVA) | payer OTHER, SELFPAY | PROVIDERS: PCP Nurse Practitioner Family; Visit Provider Internal Medicine | DX: J44.1 Chronic obstructive pulmonary disease with (acute) exacerbation (principal); F17.200 Nicotine dependence, unspecified, uncomplicated; J96.20 Acute and chronic respiratory failure, unspecified whether with hypoxia or hypercapnia; A31.0 Pulmonary mycobacterial infection | CPT/HCPCS: Q3014 ==

== ENCOUNTER 2020-11-28 01:29 | Emergency (ER) | payer OTHER, SELFPAY ==
[2020-11-28] VITALS (9 sets, daily range): BP systolic 78–100; BP diastolic 53–70; PULSE 114–140; RESP 19–24; TEMP 36.9–39.1; O2SAT 92–95; BMI 17.2
--- NOTE | 2020-11-28 | ECG_ITS ---
Test Reason : NOT FEELING WELL Blood Pressure : / mmHG Vent. Rate : 134 BPM Atrial Rate : 134 BPM P-R Int : 116 ms QRS Dur : 080 ms QT Int : 284 ms P-R-T Axes : 081 -35 080 degrees QTc Int : 424 ms Sinus tachycardia Right atrial enlargement Left axis deviation Pulmonary disease pattern Abnormal ECG When compared with ECG of 19-NOV-2020 20:00, No significant change was found Referred By: Glenys Church Electronically Signed By:TRINY HUBBARD MD
--- NOTE | ~2020-11-28 | XR_ITS ---
EXAMINATION: XR CHEST CLINICAL INFORMATION: Shortness of breath COMPARISON: 11/19/2020 TECHNIQUE: Frontal view of the chest was obtained. FINDINGS: Stable severe bilateral upper lobe and perihilar pleural parenchymal scarring with bullous changes at the lung apices, right greater than left, and upward retraction of the right hemidiaphragm. No new pulmonary parenchymal abnormalities. Normal heart size. No pleural effusion or pneumothorax. No acute or suspicious osseous abnormalities. XR/XR chest 1V IMPRESSION: No acute findings.
[2020-11-28] MEDS: Acetaminophen 325 MG TABLET 975 MG PO (02:06)
[2020-11-28] MEDS: 0.9 % Sodium Chloride 1,360.77 ML 1360.77 ML IVCONT (02:06)
[2020-11-28 02:27] LABS: Basophils Percent Auto 0.2 % (0-2); Eosinophils Absolute Auto 0.5 X10*3/uL (0.0-0.4); Eosinophils Percent Auto 2.2 % (0-4); Hematocrit 29.6 % (42-52); Hemoglobin 9.2 g/dl (14.0-18.0); Imm Gran Abs Auto 0.24 X10*3/uL (0.00-0.03); Lymphocytes Absolute Auto 1.3 X10*3/uL (1.2-4.9); Lymphocytes Percent Auto 5.6 % (20-40); MANUAL DIFF FLAG SCAN; Mean Corpuscular HGB Conc 31.1 g/dl (31.0-36.0); Mean Corpuscular Hemoglobin 28.4 pg (27.0-33.0); Mean Corpuscular Volume 91.4 fL (80-98); Monocytes Absolute Auto 1.6 X10*3/uL (0.1-1.2); Monocytes Percent Auto 6.7 % (2-11); NRBC Pct Auto 0.1 /100WBC (0.0-0.2); Neutrophils Absolute Auto 19.7 X10*3/uL (2.0-8.3); Neutrophils Percent Auto 84.3 % (45-73); Platelet Count 846 X10*3/uL (160-400); Red Blood Count 3.24 X10*6/uL (4.60-5.80); Red Cell Distribution Width 18.1 % (11.0-16.0); SCAN SMEAR FLAG 1; White Blood Count 23.4 X10*3/uL (4.8-10.8)
[2020-11-28] MEDS: ondansetron HCL 4 MG/2 ML VIAL IVPUSH (02:30)
[2020-11-28 02:32] LABS: Venous Blood Gas Refer to POC result
[2020-11-28 02:33] LABS: VBG Base Excess 16.1 mmol/L; VBG HCO3 41 mmol/L (22-26); VBG pCO2 55 mmHg; VBG pH 7.48 (7.32-7.43); VBG pO2 130 mmHg
[2020-11-28 02:47] LABS: SLIDE REVIEW VERIFIED
[2020-11-28 02:51] LABS: Alanine Aminotransferase 23 U/L (0-40); Alkaline Phosphatase 162 U/L (39-117); Anion Gap 11 (12-20); Aspartate Amino Transferase 23 U/L (5-37); Bilirubin Total 0.2 mg/dL (0.0-1.0); Blood Urea Nitrogen 13 mg/dL (9-16); Calcium 8.3 mg/dL (8.4-10.2); Carbon Dioxide 39 mmol/L (22-29); Chloride 90 mmol/L (96-108); Creatinine Clr Calc Pharmacy 75.1; Estimated Glomerular Filt Rate > 60; Glucose Random 150 mg/dL (60-115); Potassium 4.8 mmol/L (3.3-5.1); Sodium 135 mmol/L (135-145); Total Protein 6.4 g/dL (6.5-8.0)
[2020-11-28 03:05] LABS: B Type Natriuretic Peptide 20 pg/mL (<100)
[2020-11-28 03:11] LABS: Influenza A PCR NEGATIVE (Negative); Influenza B PCR NEGATIVE (Negative); Resp Syncy Virus RNA Qual PCR NEGATIVE (Negative); SARS COV2 PCR INHOUSE NEGATIVE (Negative)
--- NOTE | 2020-11-28 03:13 | ED.SOB ---
HPI - SOB/Dyspnea General Chief Complaint: Dyspnea Stated Complaint: SOUNDED DIFFERENT PER FAMILY,WANTS MED EVAL Time Seen by Provider: 11/28/20 01:53 Source: patient, family, EMS and aerial photograph interpreter Mode of arrival: EMS History of Present Illness HPI Narrative: This is a 65-year-old male who is brought in by EMS from home with complaints of heart racing and as per the his breathing was different. However, patient denies any feelings of shortness of breath. He denies any abdominal pain, diarrhea, nausea, vomiting. Related Data Home Medications Medication Instructions Recorded Confirmed Atrovent HFA 2 puff PO QID 06/01/20 11/15/20 albuterol sulfate 2.5 mg INHALATION QID PRN 06/01/20 11/15/20 aspirin 81 mg PO DAILY 06/01/20 11/15/20 atorvastatin 20 mg PO DAILY 06/01/20 11/15/20 montelukast 10 mg PO BEDTIME 06/01/20 11/15/20 sildenafil [Viagra] 0.5 - 1 tab PO DAILY PRN 06/01/20 11/15/20 bupropion HCl 150 mg PO BID 08/05/20 11/15/20 ferrous sulfate 325 mg PO DAILY 08/05/20 11/15/20 fluticasone propionate 2 spray INTRANASAL DAILY PRN 08/05/20 11/15/20 ketoconazole 1 appl TOPICAL 2XW 08/05/20 11/15/20 multivitamin 1 tab PO DAILY 08/05/20 11/15/20 sennosides [senna] 1 tab PO BEDTIME PRN 08/05/20 11/15/20 Incruse Ellipta 1 inh INHALATION DAILY 09/03/20 11/15/20 Breo Ellipta 1 inh INHALATION DAILY 10/10/20 11/15/20 gabapentin 300 mg PO TID 10/10/20 11/15/20 valsartan 40 mg PO DAILY 10/10/20 11/15/20 hydroxyzine HCl 1 tab PO TID PRN 11/15/20 11/15/20 Previous Rx's Medication Instructions Recorded ipratropium 0.5 mg-albuterol 3 mg 3 ml INHALATION QID 30 Days #360 ml 06/28/20 (2.5 mg base)/3 mL nebulization soln acetazolamide 250 mg PO DAILY #30 tab 09/08/20 prednisone See Rx Instructions .ROUTE 11/04/20 .COMPLEX #30 tab albuterol sulfate 90 mcg/actuation 2 puff INHALATION Q4-6H PRN 30 11/06/20 aerosol inhaler Days #1 ea prednisone 10 mg tablet 10 mg PO DAILY 14 Days #14 tab 11/21/20 Allergies Allergy/AdvReac Type Severity Reaction Status Date / Time morphine [MORPHINE] Allergy Mild VOMITING Verified 11/21/20 14:37 Review of Systems Review of Systems: Pertinent positives and negatives as stated in HPI 10 point review of systems is otherwise negative. [facility] Past Medical History Source: nursing notes reviewed Medical History Asthma Bronchiectasis Cocaine abuse COPD (chronic obstructive pulmonary disease) COPD (chronic obstructive pulmonary disease) COPD exacerbation COVID-19 virus infection SYED (mycobacterium avium-intracellulare) Mycobacteria, atypical Pneumonia Pneumonia Protein-calorie malnutrition, moderate Respiratory failure with hypoxia and hypercapnia Sepsis Serratia marcescens infection Family History Family History Other Family history non-contributory HTN (hypertension) Social History Social History Household Members: Significant Other Housing: House Alcohol intake: unknown Smoking Status: Former smoker Tobacco Type: Cigarette Packs Per Day: 2 Cigarettes Per Day: 40.0 Second Hand Smoke Exposure: No Use of substances other than those prescribed or required for medical reasons: No Substance Use Type: Crack/Cocaine Advance Directives: No service: No Current occupational status: unemployed, retired and disabled Physical Exam Vital Signs: Vital Signs: Last Vital Signs Temp 99.7 F 11/28/20 04:22 Pulse 114 H 11/28/20 04:22 Resp 22 H 11/28/20 04:22 BP 89/53 L 11/28/20 04:22 Pulse Ox 94 11/28/20 04:22 Body Mass Index 17.2 VITAL SIGNS: Reviewed. GENERAL: Cachectic, chronically ill, in no acute distress. HEAD: Normocephalic/atraumatic, EYES: PERRLA, EOMI EARS: Ext canals without abnormality NOSE: Nares patent bilateral OROPHARYNX: no oral lesions noted, posterior pharynx clear, tacky mucosa NECK: Supple, no adenopathy LUNGS: No retractions noted, patient is speaking in full sentences, no wheezing or rales noted SpO2<94> CARDIOVASCULAR: Regular rate and rhythm without noted murmurs ABDOMEN: Soft, non-tender, non-distended with bowel sounds. NEUROLOGIC: Alert and oriented x 4. Course Course Course Narrative: This is a 65-year-old male who is frequently evaluated here in the emergency department for complaints of shortness of breath by family it is. On review of all investigations there are no acute findings from chronically stable results. Specifically, BNP is negligible, high sensitivity troponin is negative, VBG is negative for evidence demonstrating CO2 retention. Repeat COVID-19 testing is negative and patient is oxygenating well on his baseline home nasal cannula. Although blood pressure is noted to be low, this is part of patient's presentation and he did receive over 1.5 L of normal saline and his MAPs and cognition are within normal limits. All results and findings were discussed with him as well as is family and patient was discharged back to home in stable condition. MDM - SOB/Dyspnea Lab Data Result diagrams: 11/28/20 02:17 11/28/20 02:18 Labs: Lab Results 11/28/20 11/28/20 11/28/20 Range/Units 02:17 02:17 02:17 WBC 23.4 H (4.8-10.8) X10*3/uL RBC 3.24 L (4.60-5.80) X10*6/uL Hgb 9.2 L (14.0-18.0) g/dl Hct 29.6 L (42-52) % MCV 91.4 (80-98) fL MCH 28.4 (27.0-33.0) pg MCHC 31.1 (31.0-36.0) g/dl RDW 18.1 H (11.0-16.0) % Plt Count 846 H D (160-400) X10*3/uL MPV 9.0 L (9.4-12.4) fL Immature Gran % (Auto) 1.0 H (0.0-0.4) % Neut % (Auto) 84.3 H (45-73) % Lymph % (Auto) 5.6 L (20-40) % [place] % (Auto) 6.7 (2-11) % Eos % (Auto) 2.2 (0-4) % Baso % (Auto) 0.2 (0-2) % Lymph # (Auto) 1.3 (1.2-4.9) X10*3/uL [place] # (Auto) 1.6 H (0.1-1.2) X10*3/uL Eos # (Auto) 0.5 H (0.0-0.4) X10*3/uL Baso # (Auto) 0.0 (0.0-0.2) X10*3/uL Abs Immat Gran (auto) 0.24 H (0.00-0.03) X10*3/uL Absolute Neuts (auto) 19.7 H (2.0-8.3) X10*3/uL Absolute Nucleated RBC 0.020 H (0.0-0.012) X10*3/uL Nucleated RBC % (auto) 0.1 (0.0-0.2) /100WBC Smear Tech's Comments VERIFIED VBG pH (7.32-7.43) VBG pCO2 mmHg VBG pO2 mmHg VBG HCO3 (22-26) mmol/L VBG O2 Saturation % VBG Base Excess mmol/L Sodium (135-145) mmol/L Potassium (3.3-5.1) mmol/L Chloride (96-108) mmol/L Carbon Dioxide (22-29) mmol/L Anion Gap (12-20) BUN (9-16) mg/dL Creatinine (0.5-1.4) mg/dL Estim Creat Clear Calc Estimated GFR Random Glucose (60-115) mg/dL Lactic Acid 1.0 (0.5-2.0) mmol/L Calcium (8.4-10.2) mg/dL Total Bilirubin (0.0-1.0) mg/dL AST (5-37) U/L ALT (0-40) U/L Alkaline Phosphatase (39-117) U/L Troponin I High Sens (<3.5-35.0) ng/L B-Natriuretic Peptide (<100) pg/mL Total Protein (6.5-8.0) g/dL Albumin (3.5-5.0) g/dL Urine Color Urine Appearance Urine pH (5.0-8.0) Ur Specific [place] (1.005-1.025) Urine Protein (NEG-TRACE) MG/DL Urine Glucose (UA) (NEG) MG/DL Urine Ketones (NEG) MG/DL Urine Blood (NEG) Urine Nitrite (NEG) Ur Leukocyte Esterase (NEG) Coronavirus (PCR) NEGATIVE (Negative) Influenza Type A (PCR) NEGATIVE (Negative) Influenza Type B (PCR) NEGATIVE (Negative) RSV RNA Qual (PCR) NEGATIVE (Negative) 11/28/20 11/28/20 11/28/20 Range/Units 02:17 02:18 02:26 WBC (4.8-10.8) X10*3/uL RBC (4.60-5.80) X10*6/uL Hgb (14.0-18.0) g/dl Hct (42-52) % MCV (80-98) fL MCH (27.0-33.0) pg MCHC (31.0-36.0) g/dl RDW (11.0-16.0) % Plt Count (160-400) X10*3/uL MPV (9.4-12.4) fL Immature Gran % (Auto) (0.0-0.4) % Neut % (Auto) (45-73) % Lymph % (Auto) (20-40) % [place] % (Auto) (2-11) % Eos % (Auto) (0-4) % Baso % (Auto) (0-2) % Lymph # (Auto) (1.2-4.9) X10*3/uL [place] # (Auto) (0.1-1.2) X10*3/uL Eos # (Auto) (0.0-0.4) X10*3/uL Baso # (Auto) (0.0-0.2) X10*3/uL Abs Immat Gran (auto) (0.00-0.03) X10*3/uL Absolute Neuts (auto) (2.0-8.3) X10*3/uL Absolute Nucleated RBC (0.0-0.012) X10*3/uL Nucleated RBC % (auto) (0.0-0.2) /100WBC Smear Tech's Comments VBG pH 7.48 H (7.32-7.43) VBG pCO2 55 mmHg VBG pO2 130 mmHg VBG HCO3 41 H (22-26) mmol/L VBG O2 Saturation 99.0 % VBG Base Excess 16.1 mmol/L Sodium 135 (135-145) mmol/L Potassium 4.8 (3.3-5.1) mmol/L Chloride 90 L (96-108) mmol/L Carbon Dioxide 39 H (22-29) mmol/L Anion Gap 11 L (12-20) BUN 13 (9-16) mg/dL Creatinine 0.62 (0.5-1.4) mg/dL Estim Creat Clear Calc 75.1 Estimated GFR > 60 Random Glucose 150 H D (60-115) mg/dL Lactic Acid (0.5-2.0) mmol/L Calcium 8.3 L (8.4-10.2) mg/dL Total Bilirubin 0.2 (0.0-1.0) mg/dL AST 23 (5-37) U/L ALT 23 (0-40) U/L Alkaline Phosphatase 162 H D (39-117) U/L Troponin I High Sens 3.5 (<3.5-35.0) ng/L B-Natriuretic Peptide 20 (<100) pg/mL Total Protein 6.4 L (6.5-8.0) g/dL Albumin 3.0 L (3.5-5.0) g/dL Urine Color Urine Appearance Urine pH (5.0-8.0) Ur Specific [place] (1.005-1.025) Urine Protein (NEG-TRACE) MG/DL Urine Glucose (UA) (NEG) MG/DL Urine Ketones (NEG) MG/DL Urine Blood (NEG) Urine Nitrite (NEG) Ur Leukocyte Esterase (NEG) Coronavirus (PCR) (Negative) Influenza Type A (PCR) (Negative) Influenza Type B (PCR) (Negative) RSV RNA Qual (PCR) (Negative) 11/28/20 Range/Units 04:23 WBC (4.8-10.8) X10*3/uL RBC (4.60-5.80) X10*6/uL Hgb (14.0-18.0) g/dl Hct (42-52) % MCV (80-98) fL MCH (27.0-33.0) pg MCHC (31.0-36.0) g/dl RDW (11.0-16.0) % Plt Count (160-400) X10*3/uL MPV (9.4-12.4) fL Immature Gran % (Auto) (0.0-0.4) % Neut % (Auto) (45-73) % Lymph % (Auto) (20-40) % [place] % (Auto) (2-11) % Eos % (Auto) (0-4) % Baso % (Auto) (0-2) % Lymph # (Auto) (1.2-4.9) X10*3/uL [place] # (Auto) (0.1-1.2) X10*3/uL Eos # (Auto) (0.0-0.4) X10*3/uL Baso # (Auto) (0.0-0.2) X10*3/uL Abs Immat Gran (auto) (0.00-0.03) X10*3/uL Absolute Neuts (auto) (2.0-8.3) X10*3/uL Absolute Nucleated RBC (0.0-0.012) X10*3/uL Nucleated RBC % (auto) (0.0-0.2) /100WBC Smear Tech's Comments VBG pH (7.32-7.43) VBG pCO2 mmHg VBG pO2 mmHg VBG HCO3 (22-26) mmol/L VBG O2 Saturation % VBG Base Excess mmol/L Sodium (135-145) mmol/L Potassium (3.3-5.1) mmol/L Chloride (96-108) mmol/L Carbon Dioxide (22-29) mmol/L Anion Gap (12-20) BUN (9-16) mg/dL Creatinine (0.5-1.4) mg/dL Estim Creat Clear Calc Estimated GFR Random Glucose (60-115) mg/dL Lactic Acid (0.5-2.0) mmol/L Calcium (8.4-10.2) mg/dL Total Bilirubin (0.0-1.0) mg/dL AST (5-37) U/L ALT (0-40) U/L Alkaline Phosphatase (39-117) U/L Troponin I High Sens (<3.5-35.0) ng/L B-Natriuretic Peptide (<100) pg/mL Total Protein (6.5-8.0) g/dL Albumin (3.5-5.0) g/dL Urine Color YELLOW Urine Appearance CLEAR Urine pH 7.5 (5.0-8.0) Ur Specific [place] 1.015 (1.005-1.025) Urine Protein NEG (NEG-TRACE) MG/DL Urine Glucose (UA) NEG (NEG) MG/DL Urine Ketones NEG (NEG) MG/DL Urine Blood NEG (NEG) Urine Nitrite NEG (NEG) Ur Leukocyte Esterase NEG (NEG) Coronavirus (PCR) (Negative) Influenza Type A (PCR) (Negative) Influenza Type B (PCR) (Negative) RSV RNA Qual (PCR) (Negative) Discharge Plan Discharge Clinical Impression: Acute and chronic respiratory failure Patient Disposition: Home, Self-Care Instructions: COPD (Chronic Obstructive Pulmonary Disease) (ED), Chronic Lung Disease and Infection Prevention (ED) Additional Instructions: 1. Reanude todos los medicamentos caseros seg?n lo recetado. 2. Madelyn un seguimiento con larsen proveedor de atenci?n primaria en los pr?ximos 1-2 d?as. No dude en volver al servicio de urgencias si experimenta un empeoramiento wilver de lashawn s?ntomas. Prescriptions: No Action ipratropium-albuterol 0.5 mg-3 mg(2.5 mg base)/3 mL solution for nebulization 3 ml inhalation QID 30 Days Qty: 360 RF: 6 albuterol sulfate 90 mcg/actuation HFA aerosol inhaler 2 puff inhalation Q4-6H PRN (Reason: shortness of breath or wheezing) 30 Days Qty: 1 RF: 6 Incruse Ellipta 62.5 mcg/actuation Blister With Device 1 inh INHALATION DAILY RF: 0 acetazolamide 250 mg Tablet 250 mg PO DAILY Qty: 30 RF: 0 valsartan 40 mg Tablet 40 mg PO DAILY RF: 0 Breo Ellipta 200-25 mcg/dose Blister With Device 1 inh INHALATION DAILY RF: 0 gabapentin 300 mg Capsule 300 mg PO TID RF: 0 hydroxyzine HCl 25 mg tablet 1 tab PO TID PRN (Reason: anxiety) RF: 0 atorvastatin 20 mg tablet 20 mg PO DAILY RF: 0 albuterol sulfate 2.5 mg /3 mL (0.083 %) solution for nebulization 2.5 mg inhalation QID PRN (Reason: Wheezing) RF: 0 aspirin 81 mg tablet,delayed release (DR/EC) 81 mg PO DAILY RF: 0 sildenafil [Viagra] 100 mg tablet 0.5 - 1 tab PO DAILY PRN (Reason: Erectile Dysfunction) RF: 0 montelukast 10 mg tablet 10 mg PO BEDTIME RF: 0 Atrovent HFA 17 mcg/actuation HFA aerosol inhaler 2 puff PO QID RF: 0 multivitamin Tablet 1 tab PO DAILY RF: 0 bupropion HCl 150 mg tablet sustained-release 12 hr 150 mg PO BID RF: 0 sennosides [senna] 8.6 mg tablet 1 tab PO BEDTIME PRN (Reason: Constipation) RF: 0 ketoconazole 2 % shampoo 1 appl topical 2XW RF: 0 ferrous sulfate 325 mg (65 mg iron) tablet 325 mg PO DAILY RF: 0 fluticasone propionate 50 mcg/actuation spray,suspension 2 spray intranasal DAILY PRN (Reason: Nasal Congestion) RF: 0 prednisone 10 mg tablet See Rx Instructions .ROUTE .COMPLEX Qty: 30 RF: 0 prednisone 10 mg tablet 10 mg PO DAILY 14 Days Qty: 14 RF: 1 Referrals: Cipriano Lara MD [Primary Care Provider] - 2 days (Re-evaluation after evaluated in the emergency department for concerns regarding new breath sounds by the family. No new or acute changes were noted on workup.) Interventions: ED Discharge Assessment Last Done: 11/28/20 05:45 Discharge Date/Time: 11/28/20 07:26 Print Language: Uzbek
[2020-11-28 04:31] LABS: Glucose Urine UA NEG (NEG); Leukocyte Esterase Urine NEG (NEG); Nitrite Urine NEG (NEG); PH 7.5 (5.0-8.0); Specific Gravity - Urine 1.015 (1.005-1.025); Urine Blood NEG (NEG); Urine Ketones NEG (NEG); Urine Protein NEG (NEG-TRACE)
[2020-11-28 04:34] LABS: Appearance Urine CLEAR; Color Urine YELLOW
[2020-11-28 05:08] LABS: Troponin-I High Sensitivity 3.5 ng/L (<3.5-35.0)
== END 2020-11-28 07:26 | disposition home or self-care (01) ==
PROVIDERS: Emergency Provider Student in an Organized Health Care Education/Training Program; PCP Internal Medicine Pulmonary Disease
DX: J96.20 Acute and chronic respiratory failure, unspecified whether with hypoxia or hypercapnia (principal); Z20.822 Contact with and (suspected) exposure to COVID-19; J44.9 Chronic obstructive pulmonary disease, unspecified; F14.10 Cocaine abuse, uncomplicated; Z87.891 Personal history of nicotine dependence; Z79.899 Other long term (current) drug therapy; Z79.82 Long term (current) use of aspirin; Z79.02 Long term (current) use of antithrombotics/antiplatelets; Z87.01 Personal history of pneumonia (recurrent); Z99.81 Dependence on supplemental oxygen
CPT/HCPCS: 0241U; 36415; 71045; 80053; 81003; 83605; 83880; 84484; 85025; 87040; 93005; 96361; 96374; 99285; J2405

== ENCOUNTER 2020-11-29 03:54 | Inpatient (IN) | payer OTHER, SELFPAY ==
[2020-11-29] VITALS (23 sets, daily range): BP systolic 75–111; BP diastolic 42–65; PULSE 97–140; RESP 12–22; TEMP 36.3–37.2; O2SAT 78–99; BMI 17.2
--- NOTE | ~2020-11-29 | CT_ITS ---
EXAMINATION: CT CHEST WITHOUT CONTRAST CLINICAL INFORMATION: Shortness of breath COMPARISON: CT chest dated 11/16/2020 TECHNIQUE: Multidetector volumetric CT imaging of the chest was done. Axial MIP volume rendering provided. Sagittal and coronal reformatted images were obtained. This CT examination was performed using dose optimization techniques as appropriate, variously including the following: *Automated exposure control *Adjustment of mA and/or kV according to patient size (this includes techniques or standardized protocols for targeted exams where dose is matched to indication/reason for exam; i.e. extremities or head) *Use of iterative reconstruction technique DLP: 173 mGy-cm FINDINGS: LUNGS/PLEURA: Severe upper lung predominant pleural parenchymal scarring with large cystic spaces within the upper hemithoraces bilaterally stranding by adjacent thick rinds of parenchymal consolidation, pneumatoceles and moderate to severe upper lobe predominant centrilobular emphysema. Small fluid present within a large cystic space within the posterior left upper hemithorax. Traction bronchiectatic changes present within the upper lungs bilaterally,. The appearance of these findings is stable from the previous examination. Worsening bibasilar dependent atelectasis associated trace right pleural effusion. Scattered calcified granulomata. MEDIASTINUM: Normal heart size. Triple vessel coronary calcifications. Great vessels normal caliber. Small mediastinal and bilateral hilar lymph nodes are unchanged. CHEST WALL/AXILLA: No lymphadenopathy. UPPER ABDOMEN: Stable left renal cyst. Normal adrenal glands. OSSEOUS STRUCTURES: No acute or suspicious osseous abnormalities. CT/CT chest wo con IMPRESSION: * Worsening bilateral dependent atelectatic changes in a new small right pleural effusion. * Stable extensive upper lung predominant pleural parenchymal scarring with large pneumatoceles, pulmonary fibrotic change, traction bronchiectasis and architectural distortion. * Triple vessel coronary calcifications.
--- NOTE | ~2020-11-29 | CT_ITS ---
EXAMINATION: CT ANGIOGRAM OF THE CHEST WITH AND WITHOUT CONTRAST (CT PULMONARY ANGIOGRAM FOR PE) CLINICAL INFORMATION: Reason for Exam tachycardia hypoxia COMPARISON: CT chest 11/29/[address] pulmonary angiogram 10/26/2020 and CTA chest 10/25/2011 TECHNIQUE: Prior to contrast administration, noncontrast localization images were obtained. Subsequently, multidetector volumetric imaging was performed from the thoracic inlet to below the diaphragms following the administration of 54 mL Omnipaque 350 intravenous contrast. No contrast reaction reported Sagittal, coronal, and MIP oblique sagittal reformatted images were obtained on the CT workstation, uploaded to PACS, and reviewed. This CT examination was performed using dose optimization techniques as appropriate, variously including the following: *Automated exposure control *Adjustment of mA and/or kV according to patient size (this includes techniques or standardized protocols for targeted exams where dose is matched to indication/reason for exam; i.e. extremities or head) *Use of iterative reconstruction technique Total exam dose-length product 179 mGy-cm FINDINGS: QUALITY OF STUDY/CONTRAST BOLUS: Satisfactory. PULMONARY ARTERIES: No acute central or segmental pulmonary emboli. There are a few vessels in the left upper lobe that demonstrate abrupt tapering possibly due to old disease but no filling defects to suggest acute embolic disease. THORACIC AORTA: No aneurysm or dissection. LUNGS and PLEURA: Compared to the study from 2 days ago, there has been no interval change with severe upper lung predominant pleural parenchymal scarring and large cystic spaces and air-fluid level in the left upper lobe. Confluent areas of scarring are seen some with air space is within (for example left upper lobe (7:135)). There is volume loss in the right hemithorax with shift of the mediastinum to the right. Traction bronchiectasis and honeycombing are noted at both lung bases with small pleural effusions and scattered calcified pulmonary granulomas. MEDIASTINUM: Normal heart size. The ascending aorta measures 3.5 cm. No pericardial effusion. No hilar or mediastinal lymphadenopathy. No mediastinal or hilar lymphadenopathy seen. No evidence of septal bowing or right heart strain. CHEST WALL/AXILLA: No axillary or internal mammary lymphadenopathy. OSSEOUS STRUCTURES: No acute or suspicious osseous abnormality. UPPER ABDOMEN: A left renal cyst is again seen. No reflux of contrast into the hepatic veins to suggest elevated right heart pressures. CT/CT angio chest PE protocol IMPRESSION: 1. No evidence of acute pulmonary emboli. There are some finding seen in the right upper lobe that could represent old embolic disease with vascular occlusion. 2. No change in the severe pleural-parenchymal disease seen on the study 2 days ago VTE: negative
--- NOTE | 2020-11-29 04:15 | ED_ITS ---
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 However, he does report that he feels short of breath but denies any feelings chest pain, fevers, chills, abdominal pain. Related Data Home Medications Medication Instructions Recorded Confirmed Atrovent HFA 2 puff PO QID 06/01/20 11/15/20 albuterol sulfate 2.5 mg INHALATION QID PRN 06/01/20 11/15/20 aspirin 81 mg PO DAILY 06/01/20 11/15/20 atorvastatin 20 mg PO DAILY 06/01/20 11/15/20 montelukast 10 mg PO BEDTIME 06/01/20 11/15/20 sildenafil [Viagra] 0.5 - 1 tab PO DAILY PRN 06/01/20 11/15/20 bupropion HCl 150 mg PO BID 08/05/20 11/15/20 ferrous sulfate 325 mg PO DAILY 08/05/20 11/15/20 fluticasone propionate 2 spray INTRANASAL DAILY PRN 08/05/20 11/15/20 ketoconazole 1 appl TOPICAL 2XW 08/05/20 11/15/20 multivitamin 1 tab PO DAILY 08/05/20 11/15/20 sennosides [senna] 1 tab PO BEDTIME PRN 08/05/20 11/15/20 Incruse Ellipta 1 inh INHALATION DAILY 09/03/20 11/15/20 Breo Ellipta 1 inh INHALATION DAILY 10/10/20 11/15/20 gabapentin 300 mg PO TID 10/10/20 11/15/20 valsartan 40 mg PO DAILY 10/10/20 11/15/20 hydroxyzine HCl 1 tab PO TID PRN 11/15/20 11/15/20 Previous Rx's Medication Instructions Recorded ipratropium 0.5 mg-albuterol 3 mg 3 ml INHALATION QID 30 Days #360 ml 11/06/20 (2.5 mg base)/3 mL nebulization soln acetazolamide 250 mg PO DAILY #30 tab 09/08/20 prednisone See Rx Instructions .ROUTE 11/04/20 .COMPLEX #30 tab albuterol sulfate 90 mcg/actuation 2 puff INHALATION Q4-6H PRN 30 11/06/20 aerosol inhaler Days #1 ea prednisone 10 mg tablet 10 mg PO DAILY 14 Days #14 tab 11/21/20 Allergies Allergy/AdvReac Type Severity Reaction Status Date / Time morphine [MORPHINE] Allergy Mild VOMITING Verified 11/29/20 04:04 Review of Systems Review of Systems: Pertinent positives and negatives as stated in HPI 10 point review of systems otherwise negative. [facility] Past Medical History Source: nursing notes reviewed Medical History Asthma Bronchiectasis Cocaine abuse COPD (chronic obstructive pulmonary disease) COPD (chronic obstructive pulmonary disease) COPD exacerbation COVID-19 virus infection SYED (mycobacterium avium-intracellulare) Mycobacteria, atypical Pneumonia Pneumonia Protein-calorie malnutrition, moderate Respiratory failure with hypoxia and hypercapnia Sepsis Serratia marcescens infection Family History Family History Other Family history non-contributory HTN (hypertension) Social History Social History Household Members: Significant Other Housing: House Alcohol intake: unknown Smoking Status: Former smoker Tobacco Type: Cigarette Packs Per Day: 2 Cigarettes Per Day: 40.0 Second Hand Smoke Exposure: No Substance Use Type: Crack/Cocaine Advance Directives: No service: No Current occupational status: unemployed, retired and disabled Physical Exam Vital Signs: Vital Signs: Last Vital Signs Temp 98.7 F 11/29/20 04:05 Pulse 117 H 11/29/20 05:43 Resp 18 11/29/20 05:43 BP 96/50 L 11/29/20 05:43 Pulse Ox 98 11/29/20 05:43 Body Mass Index 17.2 VITAL SIGNS: Reviewed. GENERAL: Cachectic, chronically ill, in no acute distress. HEAD: Normocephalic/atraumatic, EYES: PERRLA, EOMI NOSE: Nares patent bilateral OROPHARYNX: no oral lesions noted, posterior pharynx clear NECK: Supple, no adenopathy LUNGS: Scattered rhonchi bilaterally, tachypnea. SpO2<98> CARDIOVASCULAR: Regular rate and rhythm without noted murmurs ABDOMEN: Soft, non-tender, non-distended with bowel sounds. NEUROLOGIC: Alert and oriented x 4. Course Course Course Narrative: This is a 65-year-old male with longstanding pulmonary disease which include COPD and on review of all investigations appears to be acute exacerbation with hypoxia of a chronic condition. Tachycardia is likely combination of medications although there is an increasing leukocytosis noted. Patient received sepsis fluids and is currently on a Venti mask for his hypoxia with VBG showing mild retention with a pCO2 -76. Lactic acid and blood cultures were drawn and patient will receive antibiotics. Patient also received multiple breathing nebulized treatments as well as Solu-Medrol. This case was discussed with the inpatient hospitalist team who agrees for admission. COVID-19 testing will be repeated. MDM - SOB/Dyspnea Lab Data Result diagrams: 11/29/20 04:38 11/29/20 05:59 Labs: Lab Results 11/29/20 11/29/20 Range/Units 04:38 04:41 WBC 29.0 H (4.8-10.8) X10*3/uL RBC 2.83 L (4.60-5.80) X10*6/uL Hgb 8.1 L (14.0-18.0) g/dl Hct 26.7 L (42-52) % MCV 94.3 (80-98) fL MCH 28.6 (27.0-33.0) pg MCHC 30.3 L (31.0-36.0) g/dl RDW 17.7 H (11.0-16.0) % Plt Count 723 H (160-400) X10*3/uL MPV 9.0 L (9.4-12.4) fL Immature Gran % (Auto) 1.4 H (0.0-0.4) % Neut % (Auto) 83.5 H (45-73) % Lymph % (Auto) 5.7 L (20-40) % [place] % (Auto) 7.6 (2-11) % Eos % (Auto) 1.7 (0-4) % Baso % (Auto) 0.1 (0-2) % Lymph # (Auto) 1.7 (1.2-4.9) X10*3/uL [place] # (Auto) 2.2 H (0.1-1.2) X10*3/uL Eos # (Auto) 0.5 H (0.0-0.4) X10*3/uL Baso # (Auto) 0.0 (0.0-0.2) X10*3/uL Abs Immat Gran (auto) 0.40 H (0.00-0.03) X10*3/uL Absolute Neuts (auto) 24.3 H (2.0-8.3) X10*3/uL Absolute Nucleated RBC 0.000 (0.0-0.012) X10*3/uL Nucleated RBC % (auto) 0.0 (0.0-0.2) /100WBC Smear Tech's Comments VERIFIED VBG pH 7.36 (7.32-7.43) VBG pCO2 76 mmHg VBG pO2 158 mmHg VBG HCO3 43 H (22-26) mmol/L VBG O2 Saturation 99.0 % VBG Base Excess 15.4 mmol/L Discharge Plan Discharge Clinical Impression: Acute exacerbation of chronic obstructive pulmonary disease, Hypoxia, Pleural effusion Patient Disposition: Admitted As Inpatient
--- NOTE | 2020-11-29 04:42 | PC.NURSE ---
CT is complete at this time
[2020-11-29 04:44] LABS: Basophils Percent Auto 0.1 % (0-2); Eosinophils Absolute Auto 0.5 X10*3/uL (0.0-0.4); Eosinophils Percent Auto 1.7 % (0-4); Hematocrit 26.7 % (42-52); Hemoglobin 8.1 g/dl (14.0-18.0); Imm Gran Pct Auto 1.4 % (0.0-0.4); Lymphocytes Absolute Auto 1.7 X10*3/uL (1.2-4.9); Lymphocytes Percent Auto 5.7 % (20-40); MANUAL DIFF FLAG SCAN; Mean Corpuscular HGB Conc 30.3 g/dl (31.0-36.0); Mean Corpuscular Hemoglobin 28.6 pg (27.0-33.0); Mean Corpuscular Volume 94.3 fL (80-98); Monocytes Absolute Auto 2.2 X10*3/uL (0.1-1.2); Monocytes Percent Auto 7.6 % (2-11); Neutrophils Absolute Auto 24.3 X10*3/uL (2.0-8.3); Neutrophils Percent Auto 83.5 % (45-73); Platelet Count 723 X10*3/uL (160-400); Red Blood Count 2.83 X10*6/uL (4.60-5.80); Red Cell Distribution Width 17.7 % (11.0-16.0); SCAN SMEAR FLAG 1
[2020-11-29 05:02] LABS: Venous Blood Gas Refer to POC result
[2020-11-29 05:03] LABS: VBG Base Excess 15.4 mmol/L; VBG HCO3 43 mmol/L (22-26); VBG pCO2 76 mmHg; VBG pH 7.36 (7.32-7.43); VBG pO2 158 mmHg
[2020-11-29 05:22] LABS: SLIDE REVIEW VERIFIED
[2020-11-29] MEDS: Albuterol/Iprat 2.5/0.5MG 3 ML AMPUL.NEB INHALE ×5 (05:34→20:26)
[2020-11-29] MEDS: methylPREDNISolone Sod Succ 125 MG/2 ML VIAL IVPUSH (05:37)
[2020-11-29] MEDS: Piperacillin Sodium/Tazobactam 3.375 GM in 0.9 % Sodium Chloride 50 ML IV ×4 (06:24→21:11)
[2020-11-29] MEDS: 0.9 % Sodium Chloride 1,360.77 ML 1360.77 ML IVCONT (06:25)
[2020-11-29 06:30] LABS: COVID-19 Test Negative (Negative); IDNOW Serial# 9DD0AD1C
[2020-11-29 06:44] LABS: Alanine Aminotransferase 21 U/L (0-40); Albumin Level 2.6 g/dL (3.5-5.0); Alkaline Phosphatase 173 U/L (39-117); Anion Gap 12 (12-20); Aspartate Amino Transferase 21 U/L (5-37); Bilirubin Total < 0.2 mg/dL (0.0-1.0); Blood Urea Nitrogen 10 mg/dL (9-16); Calcium 7.7 mg/dL (8.4-10.2); Carbon Dioxide 35 mmol/L (22-29); Chloride 95 mmol/L (96-108); Estimated Glomerular Filt Rate > 60; Glucose Random 187 mg/dL (60-115); Potassium 4.8 mmol/L (3.3-5.1); Sodium 137 mmol/L (135-145); Total Protein 5.8 g/dL (6.5-8.0)
[2020-11-29] MEDS: methylPREDNISolone Sod Succ 40 MG/ML VIAL IVPUSH ×3 (10:34→21:11)
[2020-11-29] MEDS: Omeprazole 20 MG CAPSULE.DR PO (10:34)
[2020-11-29 11:35] LABS: INTERNATIONAL NORM RATIO 1.1 (0.9-1.1); Prothrombin Time 13.5 SEC (10.8-13.0)
[2020-11-29] MEDS: Heparin Sodium,Porcine 5,000 UNIT/ML VIAL 5000 UNIT SUBCUT ×2 (12:31→21:11)
--- NOTE | 2020-11-29 18:15 | P.HPHOSP_ITS ---
History of Present Illness Date of Service: 11/29/20 Chief Complaint: sob 65-year-old male of COPD, MA high, recent COVID-19 pneumonia, who presents to the hospital with complaints of back pain. Patient was recently hospitalized in early October and was discharged on the after being managed for on chronic hypoxic respiratory failure due to combination of COPD exacerbation and Serratia marcescens pneumonia superimposed on bronchiectasis and chronic anemia infection. At that time was treated with intravenous glucocorticoid plus azithromycin and inhaled tobramycin as well as levofloxacin. His oxygen was w eaned down to his O2 baseline . patient was recently here sepsis/acute respiratory failure as well as COPD exacerb;ation which was being treated that time and he left against the medical advice on 11/16. patient came to the hospital again today with the shortness of breath, has some cough as per his daughter's he also subjective fever 2 days back but she did not take the temperature. has leukocytosis increased from before. COVID negative, UA negative, chest CT: worsening atelectatic changes at the bases, bronchiectasis, pneumatoceles. AB.36/76/158 in the emergency room patient received fluid bolus, Zosyn, Solu-Medrol and placed on high-flow, blood pressure was softer 90s range. Review of Systems Review of Systems: constitutional: looks short of breath which he says slightly improving HEENT: denies any eye pain or discharge. Respiratory: Short of breath has cough cardiovascular: Denies any chest pain Denies any urinary complaints denies any abdominal pain or nausea or vomiting or fever or chills currently. Denies any weakness or numbness or any muscle pain seems anxious slightly [facility] Medical History (Updated 01/05/21 @ 10:40 by Cipriano Lara MD) AIHA (autoimmune hemolytic anemia) Anemia Anxiety disorder due to general medical condition with panic attack Asthma Bronchiectasis Bronchiectasis Chronic hypercapnic respiratory failure Chronic hypercapnic respiratory failure Cocaine abuse COPD (chronic obstructive pulmonary disease) COVID-19 virus infection SYED (mycobacterium avium-intracellulare) Moderate protein-calorie malnutrition Pleural effusion Serratia marcescens infection Family History Other Family history non-contributory HTN (hypertension) Social History Household Members: Spouse Housing: Apartment Do you presently have visiting nurse or other home services: Yes Alcohol intake: never Smoking Status: Former smoker Tobacco Type: Cigarette Packs Per Day: 2 Cigarettes Per Day: 40.0 Years Smoked: 52 Second Hand Smoke Exposure: Yes Substance Use Type: Crack/Cocaine service: No Current occupational status: retired and disabled Meds Allergies Allergy/AdvReac Type Severity Reaction Status Date / Time morphine [MORPHINE] Allergy Mild VOMITING Verified 11/29/20 04:04 Active Medications: Current Medications Generic Name Dose Route Start Last Admin Trade Name Freq PRN Reason Stop Dose Admin Albuterol/Ipratropium 3 ml 11/29/20 09:22 Albuterol/Iprat 2.5/0.5mg 3 Ml Ampul.Neb INHALE Q3H PRN Shortness of Breath Albuterol/Ipratropium 3 ml 11/29/20 16:00 11/29/20 15:30 Albuterol/Iprat 2.5/0.5mg 3 Ml Ampul.Neb INHALE 3 ml RQ4H ALFONSO Administration Heparin Sodium (Porcine) 5,000 unit 11/29/20 09:30 11/29/20 12:31 Heparin Sodium,Porcine 5,000 Unit/Ml Vial SUBCUT 5,000 unit Q12H ALFONSO Administration Piperacillin Sod/Tazobactam 50 mls @ 100 mls/hr 11/29/20 09:30 11/29/20 15:49 Sod 3.375 gm/ Sodium Chloride IV Infused Q6H ALFONSO Infusion Vancomycin HCl 1,000 mg/ 270 mls @ 270 mls/hr 11/29/20 11:00 Sodium Chloride IV ONCE ALFONSO Methylprednisolone Sodium Succinate 40 mg 11/29/20 09:30 11/29/20 14:56 Methylprednisolone Sod Succ 40 Mg/Ml Vial IVPUSH 40 mg TID ALFONSO Administration Omeprazole 20 mg 11/29/20 09:30 11/29/20 10:34 Omeprazole 20 Mg Capsule. PO 20 mg DAILY ALFONSO Administration Pharmacy Consult 1 each 11/29/20 09:22 Consult Rx Vancomycin Dosing MISCELLANE DAILY PRN Consult order Pharmacy Consult 1 each 11/29/20 12:52 Consult Rx Perform Med Rec MISCELLANE ONCE PRN Consult order Home Medications Medication Instructions Recorded Confirmed Last Taken Type aspirin 81 mg PO DAILY 06/01/20 12/28/20 Unknown History atorvastatin 20 mg PO DAILY 06/01/20 12/28/20 Unknown History montelukast 10 mg PO BEDTIME 06/01/20 12/28/20 Unknown History ferrous sulfate 325 mg PO DAILY 08/05/20 12/28/20 Unknown History fluticasone propionate 2 spray INTRANASAL DAILY PRN 08/05/20 12/28/20 Unknown History ketoconazole 1 appl TOPICAL 2XW 08/05/20 12/28/20 Unknown History multivitamin 1 tab PO DAILY 08/05/20 12/28/20 Unknown History sennosides [senna] 1 - 2 tab PO BID PRN 08/05/20 12/28/20 Unknown History Incruse Ellipta 1 inh INHALATION DAILY 09/03/20 12/28/20 Unknown History Breo Ellipta 1 inh INHALATION DAILY 10/10/20 12/28/20 Unknown History gabapentin 300 mg PO TID 10/10/20 12/28/20 Unknown History valsartan 20 mg PO DAILY 10/10/20 12/28/20 Unknown History docusate sodium 100 mg PO BID 11/29/20 12/31/20 Unknown History albuterol sulfate 2 puff PO Q4-6H PRN 12/24/20 12/28/20 Unknown History ipratropium-albuterol 1 amp INHALATION QID 12/24/20 12/28/20 Unknown History Physical Exam 2 Vital Signs and Narrative: Vital Signs: Last Vital Signs Temp 98.9 F 11/29/20 12:38 Pulse 103 H 11/29/20 15:33 Resp 16 11/29/20 15:33 BP 91/59 L 11/29/20 14:57 Pulse Ox 96 11/29/20 14:57 Body Mass Index 17.2 Const: Cachectic General: cooperative, no acute distress and ill appearing Orientation/consciousness: patient oriented x3 Eyes: appearance normal, both eyes and all related structures Resp: ngrossly fair air entry , dimished at bases , has wheezing faint. Cardio: regular rate Rhythm: regular rhythm, s1s2 heard. GI: Soft to palpation ,nd ,nt ,bs present. Skin: no rashes or lesions noted Neuro: patient oriented x3 Cognition (Neuro): normal cognition Extrem: Yes normal to inspection and Yes no pedal edema Results Labs CBC and Chem 7: 12/04/20 06:16 12/04/20 06:16 Labs: Laboratory Results - last 24 hr 11/29/20 11/29/20 11/29/20 04:38 04:41 05:59 MCV 94.3 MCH 28.6 MCHC 30.3 L RDW 17.7 H Plt Count 723 H MPV 9.0 L Immature Gran % (Auto) 1.4 H Neut % (Auto) 83.5 H Lymph % (Auto) 5.7 L Thayer % (Auto) 7.6 Eos % (Auto) 1.7 Baso % (Auto) 0.1 Lymph # (Auto) 1.7 Thayer # (Auto) 2.2 H Eos # (Auto) 0.5 H Baso # (Auto) 0.0 Abs Immat Gran (auto) 0.40 H Absolute Neuts (auto) 24.3 H Absolute Nucleated RBC 0.000 Nucleated RBC % (auto) 0.0 Smear Tech's Comments VERIFIED PT INR VBG pH 7.36 VBG pCO2 76 VBG pO2 158 VBG HCO3 43 H VBG O2 Saturation 99.0 VBG Base Excess 15.4 Anion Gap 12 Estim Creat Clear Calc 79.0 Estimated GFR > 60 Random Glucose 187 H Lactic Acid Calcium 7.7 L D Total Bilirubin < 0.2 AST 21 ALT 21 Alkaline Phosphatase 173 H Total Protein 5.8 L Albumin 2.6 L COVID-19 (LINDA) COVID-PF Management Services 11/29/20 11/29/20 11/29/20 05:59 06:07 11:24 MCV MCH MCHC RDW Plt Count MPV Immature Gran % (Auto) Neut % (Auto) Lymph % (Auto) Thayer % (Auto) Eos % (Auto) Baso % (Auto) Lymph # (Auto) Thayer # (Auto) Eos # (Auto) Baso # (Auto) Abs Immat Gran (auto) Absolute Neuts (auto) Absolute Nucleated RBC Nucleated RBC % (auto) Smear Tech's Comments PT 13.5 H INR 1.1 VBG pH VBG pCO2 VBG pO2 VBG HCO3 VBG O2 Saturation VBG Base Excess Anion Gap Estim Creat Clear Calc Estimated GFR Random Glucose Lactic Acid 1.0 Calcium Total Bilirubin AST ALT Alkaline Phosphatase Total Protein Albumin COVID-19 (LINDA) Negative COVID-19 Clin Com See Note Imaging Radiologist's Impressions: Impressions Chest CT 04/09/21 04:11 IMPRESSION: * Worsening bilateral dependent atelectatic changes in a new small right pleural effusion. * Stable extensive upper lung predominant pleural parenchymal scarring with large pneumatoceles, pulmonary fibrotic change, traction bronchiectasis and architectural distortion. * Triple vessel coronary calcifications. Assessment and Plan (1) Acute exacerbation of chronic obstructive pulmonary disease: Status: Resolved Date of service 11/29/2020. 65yo M with COPD, SYED intolerant of treatment, bronchiectasis, chronic hypoxic respiratory failure, recent admission 10/25-11/04/20 for Serratia marcescens pneumonia, subsequent re-admission 11/16/20 from which he signed out AMA admitted for acute/chronic hypoxic/hypercapneic respiratory failure and sepsis due to COPD exacerbation and pneumonia 1. acute hypoxic/hypercapneic respiratory failure/COPD exacerbation steroid taper as per Pulmonology- started on IV methylprednisolone ,nebs, oxygen tachycardia probable related to copd/nebs .but patient was given antibiotocs in Ed ? pneumonia , we will continue to moniter. pulm eval 2. pneumonia:continue vancomycin + pip/josette, pending cultures. lactic acid normal Id eval 3. anemia : moniter cbc continue to trend h/h will consider hematology eval if needed. 4. moderate protein/calorie malnutrition - supplements dvt prophylax : lovenox
[2020-11-29 19:07] LABS: Procalcitonin 0.15 ng/mL
[2020-11-29] MEDS: hydrOXYzine HCL 25 MG TABLET PO (19:11)
[2020-11-29] MEDS: vancomycin HCL 1,000 MG in 0.9 % Sodium Chloride 250 ML 270 MG IV (19:15)
[2020-11-29] MEDS: 0.9 % Sodium Chloride 1,000 ML 100 ML IVCONT (19:18)
--- NOTE | 2020-11-29 19:45 | PC.NURSE ---
x1 attempt to give report- awaiting callback. Per Dr. Monteiro titrate pts high low down to reach spo2 of 93-94%. RT called to adjust high flow
--- NOTE | 2020-11-29 20:14 | PC.NURSE ---
x2 call for report.
--- NOTE | 2020-11-29 20:46 | PC.NURSE ---
Pt now on 4l nasal cannula- tolerating well, spo2 wnl.
--- NOTE | 2020-11-29 20:47 | PC.NURSE ---
x3 attempt to give report- awaiting callback
[2020-11-29] MEDS: Montelukast Sodium 10 MG TABLET PO (21:12)
[2020-11-29] MEDS: Gabapentin 300 MG CAPSULE PO (21:13)
[2020-11-29] MEDS: Docusate Sodium 100 MG CAPSULE PO (21:13)
--- NOTE | 2020-11-29 21:59 | PC.NURSE ---
Pt on phone w/ family- became upset, desat to high 80s. pt coached on relaxation and breathing techniques- now spo2 wnl
--- NOTE | 2020-11-29 23:16 | MHC.CM.PN ---
CM met with pt via revenue cycle consultant. Pt Romansh speaking only. IMM reviewed and signed per protocol. HCP/Power of Senior Cobol Developer/daughter Marie Baeza ([phone]). Lives in [place]. Per her wishes, please call her if pt wants to leave AMA. Angelina Wagoner S.O. [phone]. CM needs to call in am regarding PCP and VNA agency. Pt lives with Angelina and she takes care of him. Pt has VNA services M,W, and FR. Pt is Oxygen dependent at home and uses a nebulizer. Pt. is unsure of PCP and VNA company. Requests CM call Angelina. Pt is COVID negative, but did have COVID 19 infection in past. D/C plan is Home/VNA vs STR. Pt may benefit from resp evaluation prior to d/c. Transportation will need to be provided secondary to Oxygen usage. CM to follow for d/c needs.
[2020-11-30] VITALS (15 sets, daily range): BP systolic 99–132; BP diastolic 54–84; PULSE 107–140; RESP 18–24; TEMP 36.5–37.2; O2SAT 90–98
[2020-11-30] MEDS: Albuterol/Iprat 2.5/0.5MG 3 ML AMPUL.NEB INHALE ×6 (00:49→20:14)
[2020-11-30] MEDS: 0.9 % Sodium Chloride Flush 3 ML SYRINGE IVFLUSH ×3 (00:50→16:01)
[2020-11-30] MEDS: Piperacillin Sodium/Tazobactam 3.375 GM in 0.9 % Sodium Chloride 50 ML IV ×4 (04:17→21:28)
[2020-11-30] MEDS: 0.9 % Sodium Chloride 1,000 ML 100 ML IVCONT ×2 (04:18→14:50)
[2020-11-30] MEDS: hydrOXYzine HCL 25 MG TABLET PO ×2 (05:02→16:15)
[2020-11-30 07:05] LABS: Basophils Percent Auto 0.1 % (0-2); Hematocrit 24.3 % (42-52); Hemoglobin 7.4 g/dl (14.0-18.0); Imm Gran Abs Auto 0.22 X10*3/uL (0.00-0.03); Imm Gran Pct Auto 0.9 % (0.0-0.4); Lymphocytes Absolute Auto 0.3 X10*3/uL (1.2-4.9); Lymphocytes Percent Auto 1.1 % (20-40); MANUAL DIFF FLAG SCAN; Mean Corpuscular HGB Conc 30.5 g/dl (31.0-36.0); Mean Corpuscular Hemoglobin 28.8 pg (27.0-33.0); Mean Corpuscular Volume 94.6 fL (80-98); Mean Platelet Volume 9.5 fL (9.4-12.4); Monocytes Absolute Auto 0.7 X10*3/uL (0.1-1.2); Monocytes Percent Auto 2.8 % (2-11); Neutrophils Absolute Auto 23.4 X10*3/uL (2.0-8.3); Neutrophils Percent Auto 95.1 % (45-73); Platelet Count 732 X10*3/uL (160-400); Red Blood Count 2.57 X10*6/uL (4.60-5.80); Red Cell Distribution Width 17.6 % (11.0-16.0); SCAN SMEAR FLAG 1; White Blood Count 24.6 X10*3/uL (4.8-10.8)
[2020-11-30 07:44] LABS: Anion Gap 16 (12-20); Blood Urea Nitrogen 10 mg/dL (9-16); Calcium 7.8 mg/dL (8.4-10.2); Carbon Dioxide 32 mmol/L (22-29); Chloride 95 mmol/L (96-108); Creatinine Clr Calc Pharmacy 75.1; Estimated Glomerular Filt Rate > 60; Glucose Random 320 mg/dL (60-115); Potassium 4.7 mmol/L (3.3-5.1); Sodium 138 mmol/L (135-145)
[2020-11-30 07:53] LABS: SLIDE REVIEW VERIFIED
[2020-11-30 09:46] LABS: Immature Retic Fraction 15.8 % (2.3-13.4); Retic HGB Equivalent 26.2 pg (30.0-35.0); Reticulocytes Absolute 0.052 X10*6/uL (0.026-0.095)
[2020-11-30 09:58] LABS: Lactate Dehydrogenase 134 U/L (118-273)
[2020-11-30 09:59] LABS: Iron 19 mcg/dL (45-160); Percent Iron Saturation 9 % (15-50); Total Iron Binding Capacity 206 mcg/dL (228-428); Unsaturated Iron Binding 187 ug/dL
--- NOTE | 2020-11-30 10:02 | P.EN_ITS ---
Event Note Date of Service: 11/30/20 Event Note: I have seen this 65 years old gentleman for pulmonary consultation. Patient is well known to all of us. His current symptoms, lab and imaging is reviewed. Complete note dictated. A: ACUTE EXACERBATION OF HIS END-STAGE CHRONIC PULMONARY DISEASE. KNOWN CASE OF ADVANCED CHRONIC OBSTRUCTIVE PULMONARY DISEASE, BRONCHIECTASES, BILATERAL CAVITARY DISEASE, RECURRENT RESPIRATORY INFECTIONS, PAST HISTORY OF MA INFECTION. CHRONIC MALNUTRITION, AND ANXIETY SYNDROME. HE HAS EXTREMELY POOR RESPIRATORY RESERVE AND, HIS WORK OF BREATHING GETS WORSE WITH MINIMAL INSULTS SUCH INFECTION, INCREASED MUCUS SECRETION, AND ANXIETY. P: TREATED FOR ACUTE EXACERBATION WITH: IV SOLU-MEDROL FOR 2 DAYS THEN CHANGED TO ORAL PREDNISONE 40 MG A DAY AND REDUCED BY 10 MG PER WEEK. DUONEB UPDRAFTS Q.6 HOURS WHILE AWAKE AND P.R.N.. OXYGEN BY NASAL CANNULA 3-4 L/MINUTE TO KEEP O2 SAT ABOVE 90%. HAS BEEN STARTED ON [employer]IOTIC COVERAGE, BUT IF CULTURES ARE NEGATIVE I WOULD ADVISED TO DOWN GREAT THE ANTIBIOTIC REGIMEN TO SOMETHING L NADJA AUGMENTIN ON DOXYCYCLINE.
[2020-11-30 10:21] LABS: Ferritin 592 ng/mL (20-250)
[2020-11-30] MEDS: methylPREDNISolone Sod Succ 40 MG/ML VIAL IVPUSH ×3 (10:40→20:20)
[2020-11-30] MEDS: guaiFENesin DM 100/10/5 ML 5 ML SYRUP PO ×2 (10:40→16:15)
[2020-11-30] MEDS: Omeprazole 20 MG CAPSULE.DR PO (10:41)
[2020-11-30] MEDS: Atorvastatin Calcium 20 MG TABLET PO (10:41)
[2020-11-30] MEDS: Docusate Sodium 100 MG CAPSULE PO ×2 (10:41→20:15)
[2020-11-30] MEDS: Gabapentin 300 MG CAPSULE PO ×3 (10:41→20:15)
[2020-11-30] MEDS: Aspirin Enteric Coated 81 MG TABLET.DR PO (10:41)
[2020-11-30] MEDS: Heparin Sodium,Porcine 5,000 UNIT/ML VIAL 5000 UNIT SUBCUT (10:42)
--- NOTE | 2020-11-30 14:38 | HO.PM.IMPN ---
Subjective Subjective Date of Service: 11/30/20 Interval History: c/o cough. now off HFNC and on regular NC @ 5Lpm. no fever Physical Exam Vital Signs: Vital Signs: Last Vital Signs Temp 99 F 11/30/20 11:51 Pulse 119 H 11/30/20 12:22 Resp 24 H 11/30/20 11:51 BP 108/71 11/30/20 11:51 Pulse Ox 93 11/30/20 11:51 Body Mass Index 17.2 Gen: in no acute distress, mildly malnouorished HEENT: sclera anicteric, moist mucus membranes Neck: supple Lungs: diminished breath sounds Heart: regular rate and rhythm, no murmurs Abd: soft, non-tender, non-distended Ext: no edema Skin: warm/well-perfused Neuro: alert and oriented x3, no focal findings Psych: appropriate affect Objective Data Current Medications Generic Name Dose Route Start Last Admin Trade Name Freq PRN Reason Stop Dose Admin Albuterol/Ipratropium 3 ml 11/29/20 09:22 Albuterol/Iprat 2.5/0.5mg 3 Ml Ampul.Neb INHALE Q3H PRN Shortness of Breath Albuterol/Ipratropium 3 ml 11/29/20 16:00 11/30/20 12:22 Albuterol/Iprat 2.5/0.5mg 3 Ml Ampul.Neb INHALE 3 ml RQ4H ALFONSO Administration Aspirin 81 mg 11/30/20 09:00 11/30/20 10:41 Aspirin Enteric Coated 81 Mg Tablet.Dr PO 81 mg DAILY ALFONSO Administration Atorvastatin Calcium 20 mg 11/30/20 09:00 11/30/20 10:41 Atorvastatin Calcium 20 Mg Tablet PO 20 mg DAILY ALFONSO Administration Docusate Sodium 100 mg 11/29/20 21:00 11/30/20 10:41 Docusate Sodium 100 Mg Capsule PO 100 mg BID ALFONSO Administration Fluticasone Propionate 2 spray 11/29/20 18:25 Fluticasone Propionate Nasal 16 Gm [place] NOSTRIL-B DAILY PRN Nasal Congestion Fluticasone/Vilanterol 1 puff 11/30/20 09:00 11/30/20 07:39 Fluticasone/Vilanterol 200/25 Blst.W.Dev INHALE Not Given DAILY ALFONSO Gabapentin 300 mg 11/29/20 21:00 11/30/20 10:41 Gabapentin 300 Mg Capsule PO 300 mg TID ALFONSO Administration Guaifenesin/Dextromethorphan 5 ml 11/30/20 09:36 11/30/20 10:40 Guaifenesin Dm 100/10/5 Ml 5 Ml Syrup PO 5 ml Q4H PRN Administration cough Heparin Sodium (Porcine) 5,000 unit 11/29/20 09:30 11/30/20 10:42 Heparin Sodium,Porcine 5,000 Unit/Ml Vial SUBCUT 5,000 unit Q12H ALFONSO Administration Hydroxyzine HCl 25 mg 11/29/20 18:25 11/30/20 05:02 Hydroxyzine Hcl 25 Mg Tablet PO 25 mg TID PRN Administration anxiety Piperacillin Sod/Tazobactam 50 mls @ 100 mls/hr 11/29/20 09:30 11/30/20 12:12 Sod 3.375 gm/ Sodium Chloride IV Infused Q6H ALFONSO Infusion Sodium Chloride 1,000 mls @ 100 mls/hr 11/29/20 18:30 11/30/20 04:18 Ns IVCONT 100 mls/hr .Q10H ALFONSO Administration Vancomycin HCl 1,000 mg/ 270 mls @ 270 mls/hr 11/30/20 19:00 Sodium Chloride IV Q24H ALFONSO Methylprednisolone Sodium Succinate 40 mg 11/29/20 09:30 11/30/20 10:40 Methylprednisolone Sod Succ 40 Mg/Ml Vial IVPUSH 40 mg TID ALFONSO Administration Montelukast Sodium 10 mg 11/29/20 21:00 11/29/20 21:12 Montelukast Sodium 10 Mg Tablet PO 10 mg BEDTIME ALFONSO Administration Omeprazole 20 mg 11/29/20 09:30 11/30/20 10:41 Omeprazole 20 Mg Capsule. PO 20 mg DAILY ALFONSO Administration Pharmacy Consult 1 each 11/29/20 09:22 Consult Rx Vancomycin Dosing MISCELLANE DAILY PRN Consult order Pharmacy Consult 1 each 11/29/20 12:52 Consult Rx Perform Med Rec MISCELLANE ONCE PRN Consult order Sodium Chloride 3 ml 11/30/20 00:00 11/30/20 10:40 0.9 % Sodium Chloride Flush 3 Ml Syringe IVFLUSH 3 ml QSHIFT [facility] Administration Labs CBC & Chem 7: 11/30/20 05:55 11/30/20 05:55 Labs: Laboratory Results - last 24 hr 11/29/20 11/30/20 11/30/20 06:07 05:55 05:55 WBC 24.6 H RBC 2.57 L Hgb 7.4 L Hct 24.3 L MCV 94.6 MCH 28.8 MCHC 30.5 L RDW 17.6 H Plt Count 732 H MPV 9.5 Immature Gran % (Auto) 0.9 H Neut % (Auto) 95.1 H Lymph % (Auto) 1.1 L Hall % (Auto) 2.8 Eos % (Auto) 0.0 Baso % (Auto) 0.1 Lymph # (Auto) 0.3 L Hall # (Auto) 0.7 Eos # (Auto) 0.0 Baso # (Auto) 0.0 Abs Immat Gran (auto) 0.22 H Absolute Neuts (auto) 23.4 H Absolute Nucleated RBC 0.000 Nucleated RBC % (auto) 0.0 Smear Tech's Comments VERIFIED Absolute Retic 0.052 Percent Retic 2.0 H Immature Retic Fraction 15.8 H Retic Hgb Equivalent 26.2 L Sodium 138 Potassium 4.7 Chloride 95 L Carbon Dioxide 32 H Anion Gap 16 BUN 10 Creatinine 0.62 Estim Creat Clear Calc 75.1 Estimated GFR > 60 Random Glucose 320 H D Calcium 7.8 L Iron 19 L TIBC 206 L % Saturation 9 L Unsat Iron Binding 187 Ferritin 592 H Lactate Dehydrogenase 134 Procalcitonin 0.15 Blood Type Antibody Screen 11/30/20 10:36 WBC RBC Hgb Hct MCV MCH MCHC RDW Plt Count MPV Immature Gran % (Auto) Neut % (Auto) Lymph % (Auto) Hall % (Auto) Eos % (Auto) Baso % (Auto) Lymph # (Auto) Hall # (Auto) Eos # (Auto) Baso # (Auto) Abs Immat Gran (auto) Absolute Neuts (auto) Absolute Nucleated RBC Nucleated RBC % (auto) Smear Tech's Comments Absolute Retic Percent Retic Immature Retic Fraction Retic Hgb Equivalent Sodium Potassium Chloride Carbon Dioxide Anion Gap BUN Creatinine Estim Creat Clear Calc Estimated GFR Random Glucose Calcium Iron TIBC % Saturation Unsat Iron Binding Ferritin Lactate Dehydrogenase Procalcitonin Blood Type A Positive Antibody Screen NEGATIVE Microbiology Microbiology Results: Microbiology 11/29/20 06:07 Blood - Venous Blood Culture - Preliminary No growth after 24 hours. 11/29/20 05:59 Blood - Venous Blood Culture - Preliminary No growth after 24 hours. Assessment and Plan (1) HCAP (healthcare-associated pneumonia): Status: Inactive Assessment and Plan: 65yo M with COPD, SYED intolerant of treatment, bronchiectasis, chronic hypoxic respiratory failure, recent admission 10/25-11/04/20 for Serratia marcescens pneumonia, subsequent re-admission 11/16/20 admitted for acute/chronic hypoxic/hypercapneic respiratory failure and sepsis due to COPD exacerbation and pneumonia # acute hypoxic/hypercapneic respiratory failure - wean O2 as tolerated # COPD exacerbation # bronchiectasis - steroid taper as per Pulmonology; prn nebs; continue ICS/LABA + LTRA # pneumonia - continue vancomycin + pip/josette d#2, de-escalate pending cultures and PCT trend # normocytic anemia - iron studies, B12, folate, retics, LDH, FOBT, T+S # moderate protein/calorie malnutrition - supplements # VTE ppx - LMWH
[2020-11-30] MEDS: Metoprolol Tartrate 5 MG/5 ML VIAL IVPUSH (19:54)
[2020-11-30] MEDS: vancomycin HCL 1,000 MG in 0.9 % Sodium Chloride 250 ML 270 MG IV (20:15)
[2020-11-30] MEDS: Enoxaparin Sodium 40 MG/0.4 ML SYRINGE SUBCUT (20:16)
[2020-11-30] MEDS: Montelukast Sodium 10 MG TABLET PO (20:16)
--- NOTE | 2020-11-30 21:54 | P.CNID_ITS ---
History of Present Illness Data of Consult Service Date: 11/30/20 Requesting physician: Cora Etienne Primary Care Provider: Unknown Physician HPI Reason for consult: leukocytosis,lung infiltrates He comes to hospital with shortness of breath ,worse for a day He is COVID negative Chest CT scan shows small atelectasis right base and some infiltrates throughout lung Review of Systems Review of Systems: Yes all other systems are reviewed and are negative PMFSH Past Medical History Medical History Asthma Bronchiectasis Cocaine abuse COPD (chronic obstructive pulmonary disease) COPD (chronic obstructive pulmonary disease) COPD exacerbation COVID-19 virus infection SYED (mycobacterium avium-intracellulare) Mycobacteria, atypical Pneumonia Pneumonia Protein-calorie malnutrition, moderate Respiratory failure with hypoxia and hypercapnia Sepsis Serratia marcescens infection Family History Family History Other Family history non-contributory HTN (hypertension) Family history: reviewed and not pertinent Social History Social History Household Members: Spouse Housing: House Do you presently have visiting nurse or other home services: Yes (3 days a vivien k) Alcohol intake: unknown Smoking Status: Former smoker Tobacco Type: Cigarette Packs Per Day: 2 Cigarettes Per Day: 40.0 Years Smoked: 50 Smoked in Last 30 Days: No Patient Interested in Nicotine Replacement: No Second Hand Smoke Exposure: No Use of substances other than those prescribed or required for medical reasons: Yes Substance Use Type: Crack/Cocaine Last Used Substance: Weeks (ago) Currently Displaying Signs/Symptoms of Drug Intoxication Withdrawal: No Have you been hit, kicked, punched, or otherwise hurt by someone within the past year? If so, by whom?: No Do you feel safe in your current relationship?: Yes Is there a partner from a previous relationship who is making you feel unsafe now?: No Are you made to feel afraid or neglected: No [facility] Practices: Mos[facility] Advance Directives: No Advance Directives on File: No Do you have thoughts of harming others: None Do you have a plan to hurt others: No Plan Recently lost weight without trying: Yes service: No Current occupational status: retired and disabled Meds Allergies Allergy/AdvReac Type Severity Reaction Status Date / Time morphine [MORPHINE] Allergy Mild VOMITING Verified 11/29/20 04:04 Active Medications: Current Medications Generic Name Dose Route Start Last Admin Trade Name Freq PRN Reason Stop Dose Admin Albuterol/Ipratropium 3 ml 11/29/20 09:22 Albuterol/Iprat 2.5/0.5mg 3 Ml Ampul.Neb INHALE Q3H PRN Shortness of Breath Albuterol/Ipratropium 3 ml 11/29/20 16:00 11/30/20 20:14 Albuterol/Iprat 2.5/0.5mg 3 Ml Ampul.Neb INHALE 3 ml RQ4H ALFONSO Administration Aspirin 81 mg 11/30/20 09:00 11/30/20 10:41 Aspirin Enteric Coated 81 Mg Tablet.Dr PO 81 mg DAILY ALFONSO Administration Atorvastatin Calcium 20 mg 11/30/20 09:00 11/30/20 10:41 Atorvastatin Calcium 20 Mg Tablet PO 20 mg DAILY ALFONSO Administration Docusate Sodium 100 mg 11/29/20 21:00 11/30/20 20:15 Docusate Sodium 100 Mg Capsule PO 100 mg BID ALFONSO Administration Enoxaparin Sodium 40 mg 11/30/20 21:00 11/30/20 20:16 Enoxaparin Sodium 40 Mg/0.4 Ml Syringe SUBCUT 40 mg Q24H ALFONSO Administration Fluticasone Propionate 2 spray 11/29/20 18:25 Fluticasone Propionate Nasal 16 Gm [place] NOSTRIL-B DAILY PRN Nasal Congestion Fluticasone/Vilanterol 1 puff 11/30/20 09:00 11/30/20 07:39 Fluticasone/Vilanterol 200/25 Blst.W.Dev INHALE Not Given DAILY ALFONSO Gabapentin 300 mg 11/29/20 21:00 11/30/20 20:15 Gabapentin 300 Mg Capsule PO 300 mg TID ALFONSO Administration Guaifenesin/Dextromethorphan 5 ml 11/30/20 09:36 11/30/20 16:15 Guaifenesin Dm 100/10/5 Ml 5 Ml Syrup PO 5 ml Q4H PRN Administration cough Hydroxyzine HCl 25 mg 11/29/20 18:25 11/30/20 16:15 Hydroxyzine Hcl 25 Mg Tablet PO 25 mg TID PRN Administration anxiety Piperacillin Sod/Tazobactam 50 mls @ 100 mls/hr 11/29/20 09:30 11/30/20 21:28 Sod 3.375 gm/ Sodium Chloride IV 100 mls/hr Q6H ALFONSO Administration Vancomycin HCl 1,000 mg/ 270 mls @ 270 mls/hr 11/30/20 19:00 11/30/20 21:21 Sodium Chloride IV Infused Q24H ALFONSO Infusion Methylprednisolone Sodium Succinate 40 mg 11/29/20 09:30 11/30/20 20:20 Methylprednisolone Sod Succ 40 Mg/Ml Vial IVPUSH 40 mg TID ALFONSO Administration Montelukast Sodium 10 mg 11/29/20 21:00 11/30/20 20:16 Montelukast Sodium 10 Mg Tablet PO 10 mg BEDTIME ALFONSO Administration Omeprazole 20 mg 11/29/20 09:30 11/30/20 10:41 Omeprazole 20 Mg Capsule. PO 20 mg DAILY ALFONSO Administration Pharmacy Consult 1 each 11/29/20 09:22 Consult Rx Vancomycin Dosing MISCELLANE DAILY PRN Consult order Pharmacy Consult 1 each 11/29/20 12:52 Consult Rx Perform Med Rec MISCELLANE ONCE PRN Consult order Sodium Chloride 3 ml 11/30/20 00:00 11/30/20 16:01 0.9 % Sodium Chloride Flush 3 Ml Syringe IVFLUSH 3 ml QSHIFT ALFONSO Administration Home Medications Medication Instructions Recorded Confirmed Last Taken Type aspirin 81 mg PO DAILY 06/01/20 11/29/20 Unknown History atorvastatin 20 mg PO DAILY 06/01/20 11/29/20 Unknown History montelukast 10 mg PO BEDTIME 06/01/20 11/29/20 Unknown History ferrous sulfate 325 mg PO DAILY 08/05/20 11/29/20 Unknown History fluticasone propionate 2 spray INTRANASAL DAILY PRN 08/05/20 11/29/20 Unknown History ketoconazole 1 appl TOPICAL 2XW 08/05/20 11/29/20 Unknown History multivitamin 1 tab PO DAILY 08/05/20 11/29/20 Unknown History sennosides [senna] 1 - 2 tab PO BID PRN 08/05/20 11/29/20 Unknown History Incruse Ellipta 1 inh INHALATION DAILY 09/03/20 11/29/20 Unknown History Breo Ellipta 1 inh INHALATION DAILY 10/10/20 11/29/20 Unknown History gabapentin 300 mg PO TID 10/10/20 11/29/20 Unknown History valsartan 40 mg PO DAILY 10/10/20 11/29/20 Unknown History hydroxyzine HCl 25 mg PO TID PRN 11/15/20 11/29/20 Unknown History docusate sodium 100 mg PO BID 11/29/20 11/29/20 Unknown History Physical Exam Vital Signs: Vital Signs: Last Vital Signs Temp 98.9 F 11/30/20 19:19 Pulse 110 H 11/30/20 20:16 Resp 19 11/30/20 19:19 BP 132/84 11/30/20 19:54 Pulse Ox 96 11/30/20 19:19 Body Mass Index 17.2 Const: General: cooperative HENMT: Head: Yes normal to inspection Mouth: Normal oral and palatal mucosa present Resp: Effort & Inspection: abnormal respiratory pattern Cardio: Rate: regular rate Rhythm: regular rhythm GI: Palpation (GI): Soft to palpation and nontender Skin: General skin exam: no rashes or lesions noted Results Labs CBC & Chem 7: 11/30/20 05:55 11/30/20 05:55 Labs: Short CBC 11/30/20 Range/Units 05:55 WBC 24.6 H (4.8-10.8) X10*3/uL Hgb 7.4 L (14.0-18.0) g/dl Hct 24.3 L (42-52) % Plt Count 732 H (160-400) X10*3/uL BMP 11/30/20 05:55 Sodium 138 Potassium 4.7 Chloride 95 L Carbon Dioxide 32 H BUN 10 Creatinine 0.62 Calcium 7.8 L Microbiology Microbiology Results: Microbiology 11/29/20 06:07 Blood - Venous Blood Culture - Preliminary No growth after 24 hours. 11/29/20 05:59 Blood - Venous Blood Culture - Preliminary No growth after 24 hours. Assessment and Plan (1) Acute exacerbation of chronic obstructive pulmonary disease: Problem details: There is some leukocytosis and COPD with infiltrates He has no fever or chills Mostly COPD exacerbation Status: Acute May continue Zosyn and Vancomycin .Change to po Doxycycline if no bacteremia/ (2) Hypoxia: Status: Acute (3) Pleural effusion: Status: Acute
[2020-12-01] VITALS (11 sets, daily range): BP systolic 110–135; BP diastolic 58–78; PULSE 100–127; RESP 16–23; TEMP 36.3–37.2; O2SAT 89–98
[2020-12-01] MEDS: 0.9 % Sodium Chloride Flush 3 ML SYRINGE IVFLUSH ×3 (00:44→17:18)
[2020-12-01] MEDS: Piperacillin Sodium/Tazobactam 3.375 GM in 0.9 % Sodium Chloride 50 ML IV ×4 (03:45→20:36)
[2020-12-01 07:02] LABS: Basophils Percent Auto 0.1 % (0-2); Hemoglobin 7.5 g/dl (14.0-18.0); Imm Gran Abs Auto 0.17 X10*3/uL (0.00-0.03); Imm Gran Pct Auto 0.7 % (0.0-0.4); Lymphocytes Absolute Auto 0.5 X10*3/uL (1.2-4.9); Lymphocytes Percent Auto 1.9 % (20-40); MANUAL DIFF FLAG SCAN; Mean Corpuscular Volume 93.3 fL (80-98); Mean Platelet Volume 9.1 fL (9.4-12.4); Monocytes Absolute Auto 1.2 X10*3/uL (0.1-1.2); NRBC Pct Auto 0.2 /100WBC (0.0-0.2); Neutrophils Absolute Auto 22.2 X10*3/uL (2.0-8.3); Neutrophils Percent Auto 92.3 % (45-73); Platelet Count 747 X10*3/uL (160-400); Red Blood Count 2.68 X10*6/uL (4.60-5.80); Red Cell Distribution Width 18.1 % (11.0-16.0); SCAN SMEAR FLAG 1; White Blood Count 24.1 X10*3/uL (4.8-10.8)
[2020-12-01 07:34] LABS: Procalcitonin 0.05 ng/mL
[2020-12-01] MEDS: Albuterol/Iprat 2.5/0.5MG 3 ML AMPUL.NEB INHALE ×4 (07:38→19:16)
[2020-12-01 07:44] LABS: Anion Gap 14 (12-20); Blood Urea Nitrogen 10 mg/dL (9-16); Calcium 8.2 mg/dL (8.4-10.2); Carbon Dioxide 40 mmol/L (22-29); Chloride 92 mmol/L (96-108); Creatinine Clr Calc Pharmacy 86.3; Estimated Glomerular Filt Rate > 60; Glucose Random 158 mg/dL (60-115); Potassium 4.7 mmol/L (3.3-5.1); Sodium 141 mmol/L (135-145)
[2020-12-01 07:58] LABS: SLIDE REVIEW VERIFIED
--- NOTE | 2020-12-01 08:56 | PM.EVENT ---
Consult for worsening anemia: chart reviewed, full consult to follow. Anemia since 2019, worsened acutely with iron deficiency. Normal iron studies in Sep 2020. ? Blood loss. Positive tahir with normal LDH. Added LFT's. Recommend IV ferrlicit or PO iron, if active infection avoid ferrlicit. Hemolytic anemia could be related to antibiotics. Thanks.
[2020-12-01 09:16] LABS: Alanine Aminotransferase 19 U/L (0-40); Albumin Level 2.8 g/dL (3.5-5.0); Alkaline Phosphatase 143 U/L (39-117); Aspartate Amino Transferase 16 U/L (5-37); Bilirubin Direct < 0.2 mg/dL (0.0-0.5); Bilirubin Total 0.2 mg/dL (0.0-1.0); Total Protein 5.9 g/dL (6.5-8.0)
[2020-12-01] MEDS: Docusate Sodium 100 MG CAPSULE PO ×2 (09:56→20:39)
[2020-12-01] MEDS: guaiFENesin DM 100/10/5 ML 5 ML SYRUP PO ×2 (09:56→21:23)
[2020-12-01] MEDS: predniSONE 20 MG TABLET 40 MG PO (09:56)
[2020-12-01] MEDS: Sodium Ferric Gluconat/Sucrose 125 MG in 0.9 % Sodium Chloride 100 ML 100 MG IV (09:56)
[2020-12-01] MEDS: Aspirin Enteric Coated 81 MG TABLET.DR PO (09:57)
[2020-12-01] MEDS: acetaZOLAMIDE 250 MG TABLET PO ×2 (09:57→20:39)
[2020-12-01] MEDS: Gabapentin 300 MG CAPSULE PO ×3 (09:57→20:40)
[2020-12-01] MEDS: Atorvastatin Calcium 20 MG TABLET PO (09:57)
[2020-12-01] MEDS: Omeprazole 20 MG CAPSULE.DR PO (09:57)
[2020-12-01 12:27] LABS: Basophils Percent Auto 0.1 % (0-2); Hematocrit 25.7 % (42-52); Hemoglobin 7.8 g/dl (14.0-18.0); Imm Gran Abs Auto 0.26 X10*3/uL (0.00-0.03); Lymphocytes Absolute Auto 0.5 X10*3/uL (1.2-4.9); MANUAL DIFF FLAG SCAN; Mean Corpuscular HGB Conc 30.4 g/dl (31.0-36.0); Mean Corpuscular Hemoglobin 28.2 pg (27.0-33.0); Mean Corpuscular Volume 92.8 fL (80-98); Mean Platelet Volume 8.8 fL (9.4-12.4); Monocytes Absolute Auto 1.5 X10*3/uL (0.1-1.2); Monocytes Percent Auto 5.7 % (2-11); NRBC Pct Auto 0.2 /100WBC (0.0-0.2); Neutrophils Absolute Auto 24.1 X10*3/uL (2.0-8.3); Neutrophils Percent Auto 91.2 % (45-73); Platelet Count 745 X10*3/uL (160-400); Red Blood Count 2.77 X10*6/uL (4.60-5.80); Red Cell Distribution Width 17.8 % (11.0-16.0); SCAN SMEAR FLAG 1; White Blood Count 26.5 X10*3/uL (4.8-10.8)
--- NOTE | 2020-12-01 15:34 | W.MHC.ACPN ---
Advanced Care Planning Note Advanced Care Planning Note Discussed with: patient and family member(s) Time spent (in minutes): 20 Narrative: Discussed pt's wishes in case of respiratory failure with pt and his daughter. Discussed poor prognosis should this occur given underlying COPD, bronchiectasis; repeated admissions for exacerbations. Initially he was considering DNR/DNI status but ultimately due to fear of , he requests to remain full code for now. Problems Discussed (1) Acute exacerbation of chronic obstructive pulmonary disease: (2) Hypoxia: (3) Pleural effusion:
--- NOTE | 2020-12-01 15:35 | HO.PM.IMPN ---
Subjective Subjective Date of Service: 12/01/20 Interval History: on 4L O2 less SOB but still quite tachycardic cough improving Physical Exam Vital Signs: Vital Signs: Last Vital Signs Temp 97.8 F 12/01/20 15:32 Pulse 120 H 12/01/20 15:32 Resp 16 12/01/20 15:32 BP 114/58 L 12/01/20 15:32 Pulse Ox 94 12/01/20 15:32 Body Mass Index 17.2 Gen: in no acute distress, mildly malnouorished HEENT: sclera anicteric, moist mucus membranes Neck: supple Lungs: diminished breath sounds Heart: regular rate and rhythm, no murmurs Abd: soft, non-tender, non-distended Ext: no edema Skin: warm/well-perfused Neuro: alert and oriented x3, no focal findings Psych: appropriate affect Objective Data Current Medications Generic Name Dose Route Start Last Admin Trade Name Freq PRN Reason Stop Dose Admin Acetazolamide 250 mg 12/01/20 09:00 12/01/20 09:57 Acetazolamide 250 Mg Tablet PO 250 mg BID ALFONSO Administration Albuterol/Ipratropium 3 ml 11/29/20 09:22 Albuterol/Iprat 2.5/0.5mg 3 Ml Ampul.Neb INHALE Q3H PRN Shortness of Breath Albuterol/Ipratropium 3 ml 12/01/20 08:00 12/01/20 15:02 Albuterol/Iprat 2.5/0.5mg 3 Ml Ampul.Neb INHALE 3 ml RQID ALFONSO Administration Aspirin 81 mg 11/30/20 09:00 12/01/20 09:57 Aspirin Enteric Coated 81 Mg Tablet. PO 81 mg DAILY ALFONSO Administration Atorvastatin Calcium 20 mg 11/30/20 09:00 12/01/20 09:57 Atorvastatin Calcium 20 Mg Tablet PO 20 mg DAILY ALFONSO Administration Docusate Sodium 100 mg 11/29/20 21:00 12/01/20 09:56 Docusate Sodium 100 Mg Capsule PO 100 mg BID ALFONSO Administration Enoxaparin Sodium 40 mg 11/30/20 21:00 11/30/20 20:16 Enoxaparin Sodium 40 Mg/0.4 Ml Syringe SUBCUT 40 mg Q24H ALFONSO Administration Fluticasone Propionate 2 spray 11/29/20 18:25 Fluticasone Propionate Nasal 16 Gm [place] NOSTRIL-B DAILY PRN Nasal Congestion Fluticasone/Vilanterol 1 puff 11/30/20 09:00 12/01/20 07:40 Fluticasone/Vilanterol 200/25 Blst.W.Dev INHALE Not Given DAILY ALFONSO Gabapentin 300 mg 11/29/20 21:00 12/01/20 09:57 Gabapentin 300 Mg Capsule PO 300 mg TID ALFONSO Administration Guaifenesin/Dextromethorphan 5 ml 11/30/20 09:36 12/01/20 09:56 Guaifenesin Dm 100/10/5 Ml 5 Ml Syrup PO 5 ml Q4H PRN Administration cough Hydroxyzine HCl 25 mg 11/29/20 18:25 11/30/20 16:15 Hydroxyzine Hcl 25 Mg Tablet PO 25 mg TID PRN Administration anxiety Piperacillin Sod/Tazobactam 50 mls @ 100 mls/hr 11/29/20 09:30 12/01/20 12:01 Sod 3.375 gm/ Sodium Chloride IV Infused Q6H ALFONSO Infusion Vancomycin HCl 1,000 mg/ 270 mls @ 270 mls/hr 11/30/20 19:00 11/30/20 21:21 Sodium Chloride IV Infused Q24H ALFONSO Infusion Ferric Sodium Gluconate 110 mls @ 100 mls/hr 12/01/20 09:00 12/01/20 11:25 Complex 125 mg/ Sodium IV 12/03/20 10:05 Infused Chloride DAILY ALFONSO Infusion Montelukast Sodium 10 mg 11/29/20 21:00 11/30/20 20:16 Montelukast Sodium 10 Mg Tablet PO 10 mg BEDTIME ALFONSO Administration Omeprazole 20 mg 11/29/20 09:30 12/01/20 09:57 Omeprazole 20 Mg Capsule. PO 20 mg DAILY ALFONSO Administration Pharmacy Consult 1 each 11/29/20 09:22 Consult Rx Vancomycin Dosing MISCELLANE DAILY PRN Consult order Pharmacy Consult 1 each 11/29/20 12:52 Consult Rx Perform Med Rec MISCELLANE ONCE PRN Consult order Prednisone 40 mg 12/01/20 09:00 12/01/20 09:56 Prednisone 20 Mg Tablet PO 40 mg DAILY ALFONSO Administration Sodium Chloride 3 ml 11/30/20 00:00 12/01/20 09:56 0.9 % Sodium Chloride Flush 3 Ml Syringe IVFLUSH 3 ml QSHIFT ALFONSO Administration Labs CBC & Chem 7: 12/01/20 12:18 12/01/20 06:17 Labs: Laboratory Results - last 24 hr 12/01/20 12/01/20 12/01/20 06:17 06:17 06:17 WBC 24.1 H RBC 2.68 L Hgb 7.5 L Hct 25.0 L MCV 93.3 MCH 28.0 MCHC 30.0 L RDW 18.1 H Plt Count 747 H MPV 9.1 L Immature Gran % (Auto) 0.7 H Neut % (Auto) 92.3 H Lymph % (Auto) 1.9 L [place] % (Auto) 5.0 Eos % (Auto) 0.0 Baso % (Auto) 0.1 Lymph # (Auto) 0.5 L [place] # (Auto) 1.2 Eos # (Auto) 0.0 Baso # (Auto) 0.0 Abs Immat Gran (auto) 0.17 H Absolute Neuts (auto) 22.2 H Absolute Nucleated RBC 0.060 H Nucleated RBC % (auto) 0.2 Smear Tech's Comments VERIFIED Sodium 141 Potassium 4.7 Chloride 92 L Carbon Dioxide 40 H* D Anion Gap 14 BUN 10 Creatinine 0.54 Estim Creat Clear Calc 86.3 Estimated GFR > 60 Random Glucose 158 H D Calcium 8.2 L Total Bilirubin 0.2 Direct Bilirubin < 0.2 AST 16 ALT 19 Alkaline Phosphatase 143 H Total Protein 5.9 L Albumin 2.8 L Procalcitonin 0.05 Ur L.pneumophila Ag Direct Antiglob Test JUDY, Polyspecific 12/01/20 12/01/20 12/01/20 06:17 12:18 13:46 WBC 26.5 H RBC 2.77 L Hgb 7.8 L Hct 25.7 L MCV 92.8 MCH 28.2 MCHC 30.4 L RDW 17.8 H Plt Count 745 H MPV 8.8 L Immature Gran % (Auto) 1.0 H Neut % (Auto) 91.2 H Lymph % (Auto) 2.0 L [place] % (Auto) 5.7 Eos % (Auto) 0.0 Baso % (Auto) 0.1 Lymph # (Auto) 0.5 L [place] # (Auto) 1.5 H Eos # (Auto) 0.0 Baso # (Auto) 0.0 Abs Immat Gran (auto) 0.26 H Absolute Neuts (auto) 24.1 H Absolute Nucleated RBC 0.050 H Nucleated RBC % (auto) 0.2 Smear Tech's Comments Sodium Potassium Chloride Carbon Dioxide Anion Gap BUN Creatinine Estim Creat Clear Calc Estimated GFR Random Glucose Calcium Total Bilirubin Direct Bilirubin AST ALT Alkaline Phosphatase Total Protein Albumin Procalcitonin Ur L.pneumophila Ag Cancelled Direct Antiglob Test POSITIVE A JUDY, Polyspecific POSITIVE A Microbiology Microbiology Results: Microbiology 11/29/20 06:07 Blood - Venous Blood Culture - Preliminary No growth after 48 hours. 11/29/20 05:59 Blood - Venous Blood Culture - Preliminary No growth after 48 hours. Assessment and Plan (1) HCAP (healthcare-associated pneumonia): Status: Inactive Assessment and Plan: hospital d#3 65yo M with COPD, SYED intolerant of treatment, bronchiectasis, chronic hypoxic respiratory failure, recent admission 10/25-11/04/20 for Serratia marcescens pneumonia, subsequent re-admission 11/16/20 from which he signed out AMA admitted for acute/chronic hypoxic/hypercapneic respiratory failure and sepsis due to COPD exacerbation and pneumonia # acute hypoxic/hypercapneic respiratory failure - wean O2 as tolerated # COPD exacerbation # bronchiectasis - steroid taper as per Pulmonology- change IV methylprednisolone to PO prednisone; prn nebs; continue ICS/LABA + LTRA # pneumonia - continue vancomycin + pip/josette d#3, de-escalate possibly to doxycycline pending cultures and PCT trend # AIHA/RUPERTO - IV iron, Heme/Onc consult, check hapto; already on steroids for COPD # tachycardia - check CTA to r/o PE. t/c transfusion for anemia? # moderate protein/calorie malnutrition - supplements # VTE ppx - LMWH
[2020-12-01] MEDS: iohexoL 350 MG/ML 100 ML INFUS..BTL IV (17:14)
[2020-12-01] MEDS: hydrOXYzine HCL 25 MG TABLET PO (18:30)
[2020-12-01] MEDS: Montelukast Sodium 10 MG TABLET PO (20:39)
[2020-12-01] MEDS: Enoxaparin Sodium 40 MG/0.4 ML SYRINGE SUBCUT (20:43)
[2020-12-01] MEDS: vancomycin HCL 750 MG in 0.9 % Sodium Chloride 250 ML 265 MG IV (21:18)
--- NOTE | 2020-12-01 23:01 | PC.NURSE ---
Pt anxious, tachypneic on 2L satting low 90s. Inreased O2 to 4L nc, pt seems to have calmed down. Will monitor and try to wean down.
[2020-12-02] VITALS (19 sets, daily range): BP systolic 90–110; BP diastolic 50–77; PULSE 97–133; RESP 18–24; TEMP 36.3–37; O2SAT 91–99; BMI 17.2
[2020-12-02] MEDS: 0.9 % Sodium Chloride Flush 3 ML SYRINGE IVFLUSH ×4 (01:02→23:45)
[2020-12-02] MEDS: hydrOXYzine HCL 25 MG TABLET PO (01:39)
[2020-12-02] MEDS: Albuterol/Iprat 2.5/0.5MG 3 ML AMPUL.NEB INHALE ×5 (02:45→19:31)
[2020-12-02] MEDS: Piperacillin Sodium/Tazobactam 3.375 GM in 0.9 % Sodium Chloride 50 ML IV ×2 (03:28→15:51)
[2020-12-02 06:19] LABS: Venous Blood Gas Refer to POC result
[2020-12-02 06:20] LABS: VBG Base Excess 14.4 mmol/L; VBG HCO3 42 mmol/L (22-26); VBG pCO2 70 mmHg; VBG pH 7.38 (7.32-7.43); VBG pO2 110 mmHg
[2020-12-02 06:53] LABS: Basophils Percent Auto 0.1 % (0-2); Eosinophils Percent Auto 0.1 % (0-4); Hematocrit 25.9 % (42-52); Hemoglobin 7.8 g/dl (14.0-18.0); Imm Gran Abs Auto 0.22 X10*3/uL (0.00-0.03); Lymphocytes Absolute Auto 1.1 X10*3/uL (1.2-4.9); Lymphocytes Percent Auto 4.9 % (20-40); MANUAL DIFF FLAG SCAN; Mean Corpuscular HGB Conc 30.1 g/dl (31.0-36.0); Mean Corpuscular Hemoglobin 28.2 pg (27.0-33.0); Mean Corpuscular Volume 93.5 fL (80-98); Mean Platelet Volume 9.1 fL (9.4-12.4); Monocytes Absolute Auto 2.2 X10*3/uL (0.1-1.2); Monocytes Percent Auto 9.6 % (2-11); NRBC Pct Auto 0.1 /100WBC (0.0-0.2); Neutrophils Absolute Auto 19.2 X10*3/uL (2.0-8.3); Neutrophils Percent Auto 84.3 % (45-73); Platelet Count 739 X10*3/uL (160-400); Red Blood Count 2.77 X10*6/uL (4.60-5.80); Red Cell Distribution Width 18.1 % (11.0-16.0); SCAN SMEAR FLAG 1; White Blood Count 22.8 X10*3/uL (4.8-10.8)
[2020-12-02 06:54] LABS: Immature Retic Fraction 26.2 % (2.3-13.4); Retic HGB Equivalent 24.2 pg (30.0-35.0); Reticulocyte Percent 1.4 % (0.5-1.8)
[2020-12-02 07:24] LABS: Anion Gap 11 (12-20); Blood Urea Nitrogen 11 mg/dL (9-16); Calcium 8.4 mg/dL (8.4-10.2); Carbon Dioxide 35 mmol/L (22-29); Chloride 97 mmol/L (96-108); Creatinine Clr Calc Pharmacy 73.9; Estimated Glomerular Filt Rate > 60; Glucose Random 168 mg/dL (60-115); Potassium 3.7 mmol/L (3.3-5.1); Sodium 139 mmol/L (135-145)
[2020-12-02] MEDS: Fluticasone/Vilanterol 200/25 BLST.W.DEV 1 PUFF INHALE (07:28)
[2020-12-02 07:49] LABS: SLIDE REVIEW VERIFIED
[2020-12-02 08:01] LABS: Estimated Average Glucose 148 mg/dL; Hemoglobin A1c % 6.8 %
[2020-12-02 08:54] LABS: Folate 10.8 ng/mL (> or = 4.0); Vitamin B12 1183 pg/mL (200-900)
[2020-12-02] MEDS: vancomycin HCL 750 MG in 0.9 % Sodium Chloride 250 ML 265 MG IV (08:54)
[2020-12-02] MEDS: Omeprazole 20 MG CAPSULE.DR PO (09:01)
[2020-12-02] MEDS: predniSONE 20 MG TABLET 40 MG PO (09:01)
[2020-12-02] MEDS: acetaZOLAMIDE 250 MG TABLET PO ×2 (09:01→21:33)
[2020-12-02] MEDS: Gabapentin 300 MG CAPSULE PO ×3 (09:01→21:33)
[2020-12-02] MEDS: Docusate Sodium 100 MG CAPSULE PO ×2 (09:01→21:33)
[2020-12-02] MEDS: Aspirin Enteric Coated 81 MG TABLET.DR PO (09:01)
[2020-12-02] MEDS: Atorvastatin Calcium 20 MG TABLET PO (09:01)
[2020-12-02] MEDS: Sodium Ferric Gluconat/Sucrose 125 MG in 0.9 % Sodium Chloride 100 ML 100 MG IV (10:07)
--- NOTE | 2020-12-02 11:05 | PM.HEMONCCN ---
Subjective - Subjective Chief complaint: Shortness of breath Patient: new to practice Consult date: 12/02/20 Requesting Physician: Dr. Etienne Primary Care Provider: Unknown Physician HPI - Consult Narrative Reason for consult: Anemia Narrative: Cristi Baeza is a 65 year old male of increased shortness of breath and respiratory distress. He has had multiple admissions for the same reason, he has severe underlying COPD. On admission with a hemoglobin of 7.4 gram/dL. Dating back to 2019, however it has worsened in 2019 and 2020. He has elevated RDW and thrombocytosis. Patient denies any abdominal pain or hematochezia/melena. He has had weight loss in the last 1 year. His appetite is poor overall. He is now receiving IV antibiotics. He was started on IV Ferrlecit. He was found to have direct Mike positive. He is on steroids for COPD. Review of Systems - Constitutional Reports as per HPI, Reports no additional constitutional complaints PMFSH Medical History: Medical History (Last Reviewed 11/30/20 @ 21:56 by Roz Canseco MD) Asthma Bronchiectasis Cocaine abuse COPD (chronic obstructive pulmonary disease) COPD (chronic obstructive pulmonary disease) COPD exacerbation COVID-19 virus infection SYED (mycobacterium avium-intracellulare) Mycobacteria, atypical Pneumonia Pneumonia Protein-calorie malnutrition, moderate Respiratory failure with hypoxia and hypercapnia Sepsis Serratia marcescens infection Family History: Family History (Last Reviewed 11/30/20 @ 21:56 by Roz Canseco MD) Other Family history non-contributory HTN (hypertension) Family history: reviewed and not pertinent Social History: Social History (Last Reviewed 11/30/20 @ 21:57 by Roz Canseco MD) Living Situation History: Household Members: Spouse Housing: House Do you presently have visiting nurse or other home services: Yes Do you presently have visiting nurse or other home services comment: 3 days a week Alcohol History: Alcohol intake: unknown Alcohol History Details: Alcohol intake frequency: does not drink Tobacco History: Smoking Status: Former smoker Tobacco Type: Cigarette Packs Per Day: 2 Years Smoked: 50 Smoked in Last 30 Days: No Patient Interested in Nicotine Replacement: No Second Hand Smoke Exposure: No Substance Use History: Use of substances other than those prescribed or required for medical reasons: Yes Substance Use Type: Crack/Cocaine Last Used Substance: Weeks (ago) Currently Displaying Signs/Symptoms of Drug Intoxication Withdrawal: No Domestic Abuse History: Have you been hit, kicked, punched, or otherwise hurt by someone within the past year? If so, by whom?: No Do you feel safe in your current relationship?: Yes Is there a partner from a previous relationship who is making you feel unsafe now?: No Are you made to feel afraid or neglected: No Healthcare Practices: [facility] Healthcare Practices: [facility] Advance Directives: Advance Directives: No Advance Directives Information Provided: Advance Directives Information Provided comment: declined Advance Directives on File: No Homicidal Assessment: Do you have thoughts of harming others: None Do you have a plan to hurt others: No Plan Nutrition Assessment: Recently lost weight without trying: Yes How much weight loss: 34pounds or more Eating poorly because of decreased appetite: No Nutrition screen score: 6 Nutrition Risks: No Nutritional Risk Poor oral hygiene: No Occupation Assessmet: service: No Current occupational status: retired Current occupational status: disabled Smoking status: Former smoker Home Medications and Allergies Current Medications: Current Medications Generic Name Dose Route Start Last Admin Trade Name Freq PRN Reason Stop Dose Admin Acetazolamide 250 mg 12/01/20 09:00 12/02/20 09:01 Acetazolamide 250 Mg Tablet PO 250 mg BID ALFONSO Administration Albuterol/Ipratropium 3 ml 11/29/20 09:22 12/02/20 02:45 Albuterol/Iprat 2.5/0.5mg 3 Ml Ampul.Neb INHALE 3 ml Q3H PRN Administration Shortness of Breath Albuterol/Ipratropium 3 ml 12/01/20 08:00 12/02/20 07:28 Albuterol/Iprat 2.5/0.5mg 3 Ml Ampul.Neb INHALE 3 ml RQID ALFONSO Administration Aspirin 81 mg 11/30/20 09:00 12/02/20 09:01 Aspirin Enteric Coated 81 Mg Tablet. PO 81 mg DAILY ALFONSO Administration Atorvastatin Calcium 20 mg 11/30/20 09:00 12/02/20 09:01 Atorvastatin Calcium 20 Mg Tablet PO 20 mg DAILY ALFONSO Administration Docusate Sodium 100 mg 11/29/20 21:00 12/02/20 09:01 Docusate Sodium 100 Mg Capsule PO 100 mg BID ALFONSO Administration Enoxaparin Sodium 40 mg 11/30/20 21:00 12/01/20 20:43 Enoxaparin Sodium 40 Mg/0.4 Ml Syringe SUBCUT 40 mg Q24H ALFONSO Administration Fluticasone Propionate 2 spray 11/29/20 18:25 Fluticasone Propionate Nasal 16 Gm [place] NOSTRIL-B DAILY PRN Nasal Congestion Fluticasone/Vilanterol 1 puff 11/30/20 09:00 12/02/20 07:28 Fluticasone/Vilanterol 200/25 Blst.W.Dev INHALE 1 puff DAILY ALFONSO Administration Gabapentin 300 mg 11/29/20 21:00 12/02/20 09:01 Gabapentin 300 Mg Capsule PO 300 mg TID ALFONSO Administration Guaifenesin/Dextromethorphan 5 ml 11/30/20 09:36 12/01/20 21:23 Guaifenesin Dm 100/10/5 Ml 5 Ml Syrup PO 5 ml Q4H PRN Administration cough Hydroxyzine HCl 25 mg 11/29/20 18:25 12/02/20 01:39 Hydroxyzine Hcl 25 Mg Tablet PO 25 mg TID PRN Administration anxiety Piperacillin Sod/Tazobactam 50 mls @ 100 mls/hr 11/29/20 09:30 12/02/20 03:58 Sod 3.375 gm/ Sodium Chloride IV Infused Q6H ALFONSO Infusion Ferric Sodium Gluconate 110 mls @ 100 mls/hr 12/01/20 09:00 12/02/20 10:07 Complex 125 mg/ Sodium IV 12/03/20 10:05 100 mls/hr Chloride DAILY ALFONSO Administration Vancomycin HCl 750 mg/ Sodium 265 mls @ 265 mls/hr 12/01/20 20:00 12/02/20 10:15 Chloride IV Infused Q12H ALFONSO Infusion Insulin Human Lispro 0 unit 12/02/20 11:30 Insulin Lispro 100 Unit/Ml 3 Ml Vial SUBCUT QIDACHS [facility] Protocol Montelukast Sodium 10 mg 11/29/20 21:00 12/01/20 20:39 Montelukast Sodium 10 Mg Tablet PO 10 mg BEDTIME ALFONSO Administration Omeprazole 20 mg 11/29/20 09:30 12/02/20 09:01 Omeprazole 20 Mg Capsule.Dr PO 20 mg DAILY ALFONSO Administration Pharmacy Consult 1 each 11/29/20 09:22 Consult Rx Vancomycin Dosing MISCELLANE DAILY PRN Consult order Pharmacy Consult 1 each 11/29/20 12:52 Consult Rx Perform Med Rec MISCELLANE ONCE PRN Consult order Prednisone 40 mg 12/01/20 09:00 12/02/20 09:01 Prednisone 20 Mg Tablet PO 40 mg DAILY ALFONSO Administration Sodium Chloride 3 ml 11/30/20 00:00 12/02/20 09:00 0.9 % Sodium Chloride Flush 3 Ml Syringe IVFLUSH 3 ml QSHIFT ALFONSO Administration Home Medications Medication Instructions Recorded Confirmed Type aspirin 81 mg PO DAILY 06/01/20 11/29/20 History atorvastatin 20 mg PO DAILY 06/01/20 11/29/20 History montelukast 10 mg PO BEDTIME 06/01/20 11/29/20 History ferrous sulfate 325 mg PO DAILY 08/05/20 11/29/20 History fluticasone propionate 2 spray INTRANASAL DAILY PRN 08/05/20 11/29/20 History ketoconazole 1 appl TOPICAL 2XW 08/05/20 11/29/20 History multivitamin 1 tab PO DAILY 08/05/20 11/29/20 History sennosides [senna] 1 - 2 tab PO BID PRN 08/05/20 11/29/20 History Incruse Ellipta 1 inh INHALATION DAILY 09/03/20 11/29/20 History Breo Ellipta 1 inh INHALATION DAILY 10/10/20 11/29/20 History gabapentin 300 mg PO TID 10/10/20 11/29/20 History valsartan 40 mg PO DAILY 10/10/20 11/29/20 History hydroxyzine HCl 25 mg PO TID PRN 11/15/20 11/29/20 History docusate sodium 100 mg PO BID 11/29/20 11/29/20 History Allergies Allergy/AdvReac Type Severity Reaction Status Date / Time morphine [MORPHINE] Allergy Mild VOMITING Verified 11/29/20 04:04 Physical Exam Vital signs: Vital Signs Temp 97.6 F 12/02/20 08:00 Pulse 114 H 12/02/20 08:00 Resp 18 12/02/20 08:00 BP 109/61 12/02/20 08:00 Pulse Ox 98 12/02/20 08:00 Intake & Output 12/01/20 12/02/20 12/02/20 18:59 06:59 18:59 Intake Total 930 / 2295 1365 / 2295 265 / 265 Output Total 1600 / 3225 1625 / 3225 350 / 350 Balance -670 / -930 -260 / -930 -85 / -85 Urine Output (Average ml/kg/hr) 2.94 2.99 0.64 Intake: Intake, Oral Amount 720 / 1720 1000 / 1720 Intake, IV Amount 210 / 575 365 / 575 265 / 265 Piperacillin Sodium/Tazobactam 100 / 200 100 / 200 3.375 gm In 0.9 % Sodium Chloride 50 ml @ 100 mls/hr IV Q6H ALFONSO Rx#:[id number] Sodium Ferric Gluconat/Sucrose 110 / 110 125 mg In 0.9 % Sodium Chloride 100 ml @ 100 mls/hr IV DAILY ALFONSO Rx#:[id number] vancomycin HCL 750 mg In 0.9 % 265 / 265 265 / 265 Sodium Chloride 250 ml @ 265 mls/hr IV Q12H ALFONSO Rx#: [id number] Output: Output, Urine Amount 1600 / 3225 1625 / 3225 350 / 350 Other: Breakfast % Eaten 50% 100% Lunch % Eaten 25% Dinner % Eaten 100% Urine Urinal Bedside Commode Urinal Urine Color Pale Yellow Yellow Weight 45.359 kg - Constitutional Present: moderate distress, chronically ill appearing - Routine HEENT Exam Head: Present: normal inspection Eye: Present: conjunctivae pale - Routine Neck Exam Absent: lymphadenopathy - Routine Respiratory Exam Present: accessory muscle use, respiratory distress - Routine Cardiovascular Exam Cardiovascular: Present: S1 Hem/Onc Consult Result - Labs CBC & Chem 7: 12/02/20 06:09 12/02/20 06:09 Labs: Short CBC 12/01/20 12/02/20 Range/Units 12:18 06:09 WBC 26.5 H 22.8 H (4.8-10.8) X10*3/uL Hgb 7.8 L 7.8 L (14.0-18.0) g/dl Hct 25.7 L 25.9 L (42-52) % Plt Count 745 H 739 H (160-400) X10*3/uL BMP 12/02/20 06:09 Sodium 139 Potassium 3.7 D Chloride 97 Carbon Dioxide 35 H BUN 11 Creatinine 0.63 Calcium 8.4 Assessment and Plan (1) Anemia Status: Acute Qualifiers: Anemia type: iron deficiency 1. This is a 65-year-old man with severe underlying COPD and gradually worsening anemia. Hemoglobin has been under 9 gram/dL since October 2020 for the most part. Blood work shows iron deficiency anemia. Although direct Mike test is positive, he has normal LDH and bilirubin. This could be as a result of antibiotics, he does not appear to be briskly hemolyzing. Anemia of chronic disease is also possibility. He is already on steroids for COPD exacerbation. He has normal kidney and liver functions. I have recommended that he be started on iron replacement therapy. Transfuse blood if his hemoglobin goes below 7 gram/dL. I thank you for this consultation.
--- NOTE | 2020-12-02 11:14 | CONS_ITS ---
DATE OF SERVICE: 11/30/2020 HISTORY OF PRESENT ILLNESS: This 65-year-old gentleman comes to the hospital once again mainly with complaint of increased shortness of breath, has very very kind of discomfort in the left side of the chest. He denies fever or chills. He has his usual cough with minimal to moderate expectoration. There is no hemoptysis and he has been taking his own medications. On arrival to the emergency room, his statement was that during the middle of the night, he wakes up with shortness of breath and feels very anxious and panicky because there is no one else to talk to at that time. It should be noted that this gentleman comes to the hospital very frequently, treated with almost the same routine. This time, he was discharged home a few weeks ago. PAST MEDICAL HISTORY: Well known and recorded in the electronic medical records including advanced chronic obstructive pulmonary disease. Bilateral cavitary disease. Advanced pulmonary fibrosis. Recurrent respiratory infections and there is history of mycobacterium avium infection in the past. He also has bronchiectasis mostly traction bronchiectasis and the cavitary disease is mainly due to pneumatoceles. Needless to say this gentleman is at risk of getting superadded respiratory infections and he is advanced case of obstructive airway disorder with very little respiratory reserve. For him, it does not take much to get worse and this is what necessitates his coming back to the hospital. In addition to his medications including DuoNeb updrafts, Breo, prednisone, he is also on oxygen at 3 to 4 L/minute. The patient has had bronchoscopy by Dr. Sosa, to clean his airways and the pulmonary secretions did not grow any specific bacteria. The patient has past history of smoking, but does not smoke currently. There is a past history of cocaine abuse, but long time ago. He is chronically malnourished with increased work of breathing and very poor nutrition. PHYSICAL EXAMINATION: GENERAL: 65-year-old gentleman, is a thin build, emaciated, chronically sick-looking. He was noted to be fairly comfortable as I entered into the exam room, but during conversation, he is now moderately dyspneic and seems to be quite anxious. VITAL SIGNS: His respiratory rate is 24, heart rate 118, temperature 98.2, blood pressure is 110/59, O2 saturation 95% on oxygen 4 L/minute. EAR, NOSE, THROAT EXAMINATION: Does not reveal any acute infection in the oral cavity. NECK: No JVD. Trachea midline. No lymphadenopathy. CHEST: The chest wall is very thin. Percussion note hyper-resonant. Breath sounds are distant. Inspiratory crepitations are heard, scattered over the chest and especially over the basilar areas. No active wheezes. CARDIAC: Sounds are distant. Rhythm is regular. He is slightly tachycardiac. No murmur or gallop. ABDOMEN: Flat, soft, and nontender. No palpable mass. EXTREMITIES: No pitting edema. Peripheral pulses are not palpable. No evidence of any phlebitis. IMAGING: The patient had repeat CT scan of the chest, which basically shows poor aeration of the bases and very small pleural effusion on the right side. Rest of the changes as extensive cavitary disease, pulmonary fibrosis, and bronchiectasis are same as usual. LABORATORY DATA: White cell count 24.6, hematocrit is 24, hemoglobin 7.4. CLINICAL IMPRESSION: 1. Acute exacerbation of his chronic obstructive pulmonary disease/bronchiectasis/pulmonary fibrosis. 2. Increased work of breathing secondary to acute exacerbation and anxiety neurosis. 3. Chronic malnutrition. 4. Chronic respiratory failure. 5. Anxiety neurosis. RECOMMENDATIONS: Treat him for acute exacerbation with routine protocol including IV Solu-Medrol for 1 or 2 days, then convert to prednisone 40 mg and taper it down by 10 mg every week. DuoNeb updrafts q.6 hours while awake. Oxygen supplementation with nasal cannula or high-flow as needed to keep O2 saturation above 90%. It should be noted that his ongoing leukocytosis is probably due to continued use of steroids. Currently, the increased anemia is also contributing to a respiratory distress. He has been started on vancomycin and piperacillin, but as soon as we have the culture reports and there is no new bacteria, then we can downgrade the antibiotic coverage. He will probably do well with oral Augmentin or doxycycline as he has taken those before. Thank you very much for asking me to see this patient. MD MARIA G Schulte/NIYA / [phone]
[2020-12-02 11:38] LABS: Glucose, Whole Blood 167 mg/dL (60-115)
--- NOTE | 2020-12-02 11:55 | MHC.CLN ---
PT IS MODERATELY MALNOURISHED PT WITH MILDLY DEPLETED SUBCUTANEOUS FAT AND MUSCLE MASS AND BMI 17 DIET RX: REGULAR-APPROPRIATE PT RECEIVING 8OZ ENSURE TID TO INCREASE KCALS AND PROMOTE WT GAIN SUPPLEMENT PROVIDES 1050KCALS, 60G PROTEIN SEE ALSO CLINICAL NUTRITION ASSESSMENT
[2020-12-02] MEDS: Insulin Lispro 100 UNIT/ML 3 ML VIAL SUBCUT ×2 (12:02→16:48)
--- NOTE | 2020-12-02 18:16 | HO.PM.IMPN ---
Subjective Subjective Date of Service: 12/02/20 Interval History: Still quite anxious and short of breath. Consents to blood transfusion. No fever. Physical Exam Vital Signs: Vital Signs: Last Vital Signs Temp 97.4 F 12/02/20 16:00 Pulse 120 H 12/02/20 16:00 Resp 20 12/02/20 16:00 BP 110/58 L 12/02/20 16:00 Pulse Ox 98 12/02/20 16:00 Body Mass Index 17.2 Gen: chronically ill-appearing, temporal wasting HEENT: sclera anicteric, pale mucus membranes Neck: supple Lungs: diminished breath sounds Heart: regular rate and rhythm, no murmurs Abd: soft, non-tender, non-distended Ext: no edema Skin: warm/well-perfused Neuro: alert and oriented x3, no focal findings Psych: appropriate affect Objective Data Current Medications Generic Name Dose Route Start Last Admin Trade Name Freq PRN Reason Stop Dose Admin Acetazolamide 250 mg 12/01/20 09:00 12/02/20 09:01 Acetazolamide 250 Mg Tablet PO 250 mg BID ALFONSO Administration Albuterol/Ipratropium 3 ml 11/29/20 09:22 12/02/20 02:45 Albuterol/Iprat 2.5/0.5mg 3 Ml Ampul.Neb INHALE 3 ml Q3H PRN Administration Shortness of Breath Albuterol/Ipratropium 3 ml 12/01/20 08:00 12/02/20 15:08 Albuterol/Iprat 2.5/0.5mg 3 Ml Ampul.Neb INHALE 3 ml RQID ALFONSO Administration Aspirin 81 mg 11/30/20 09:00 12/02/20 09:01 Aspirin Enteric Coated 81 Mg Tablet.Dr PO 81 mg DAILY ALFONSO Administration Atorvastatin Calcium 20 mg 11/30/20 09:00 12/02/20 09:01 Atorvastatin Calcium 20 Mg Tablet PO 20 mg DAILY ALFONSO Administration Docusate Sodium 100 mg 11/29/20 21:00 12/02/20 09:01 Docusate Sodium 100 Mg Capsule PO 100 mg BID ALFONSO Administration Enoxaparin Sodium 40 mg 11/30/20 21:00 12/01/20 20:43 Enoxaparin Sodium 40 Mg/0.4 Ml Syringe SUBCUT 40 mg Q24H ALFONSO Administration Fluticasone Propionate 2 spray 11/29/20 18:25 Fluticasone Propionate Nasal 16 Gm [place] NOSTRIL-B DAILY PRN Nasal Congestion Fluticasone/Vilanterol 1 puff 11/30/20 09:00 12/02/20 07:28 Fluticasone/Vilanterol 200/25 Blst.W.Dev INHALE 1 puff DAILY ALFONSO Administration Gabapentin 300 mg 11/29/20 21:00 12/02/20 16:00 Gabapentin 300 Mg Capsule PO 300 mg TID ALFONSO Administration Guaifenesin/Dextromethorphan 5 ml 11/30/20 09:36 12/01/20 21:23 Guaifenesin Dm 100/10/5 Ml 5 Ml Syrup PO 5 ml Q4H PRN Administration cough Hydroxyzine HCl 25 mg 11/29/20 18:25 12/02/20 01:39 Hydroxyzine Hcl 25 Mg Tablet PO 25 mg TID PRN Administration anxiety Piperacillin Sod/Tazobactam 50 mls @ 100 mls/hr 11/29/20 09:30 12/02/20 16:28 Sod 3.375 gm/ Sodium Chloride IV Infused Q6H ALFONSO Infusion Ferric Sodium Gluconate 110 mls @ 100 mls/hr 12/01/20 09:00 12/02/20 12:07 Complex 125 mg/ Sodium IV 12/03/20 10:05 Infused Chloride DAILY ALFONSO Infusion Vancomycin HCl 750 mg/ Sodium 265 mls @ 265 mls/hr 12/01/20 20:00 12/02/20 10:15 Chloride IV Infused Q12H ALFONSO Infusion Insulin Human Lispro 0 unit 12/02/20 11:30 12/02/20 16:48 Insulin Lispro 100 Unit/Ml 3 Ml Vial SUBCUT 2 unit QIDACHS ALFONSO Administration Protocol Montelukast Sodium 10 mg 11/29/20 21:00 12/01/20 20:39 Montelukast Sodium 10 Mg Tablet PO 10 mg BEDTIME ALFONSO Administration Omeprazole 20 mg 11/29/20 09:30 12/02/20 09:01 Omeprazole 20 Mg Capsule.Dr PO 20 mg DAILY ALFONSO Administration Pharmacy Consult 1 each 11/29/20 09:22 Consult Rx Vancomycin Dosing MISCELLANE DAILY PRN Consult order Pharmacy Consult 1 each 11/29/20 12:52 Consult Rx Perform Med Rec MISCELLANE ONCE PRN Consult order Prednisone 40 mg 12/01/20 09:00 12/02/20 09:01 Prednisone 20 Mg Tablet PO 40 mg DAILY ALFONSO Administration Sodium Chloride 3 ml 11/30/20 00:00 12/02/20 16:00 0.9 % Sodium Chloride Flush 3 Ml Syringe IVFLUSH 3 ml QSHIFT ALFONSO Administration Labs CBC & Chem 7: 12/02/20 06:09 12/02/20 06:09 Labs: Laboratory Results - last 24 hr 11/30/20 11/30/20 12/01/20 05:55 10:36 17:53 WBC RBC Hgb Hct MCV MCH MCHC RDW Plt Count MPV Immature Gran % (Auto) Neut % (Auto) Lymph % (Auto) [place] % (Auto) Eos % (Auto) Baso % (Auto) Lymph # (Auto) [place] # (Auto) Eos # (Auto) Baso # (Auto) Abs Immat Gran (auto) Absolute Neuts (auto) Absolute Nucleated RBC Nucleated RBC % (auto) Smear Tech's Comments Absolute Retic Percent Retic Immature Retic Fraction Retic Hgb Equivalent VBG pH VBG pCO2 VBG pO2 VBG HCO3 VBG O2 Saturation VBG Base Excess Sodium Potassium Chloride Carbon Dioxide Anion Gap BUN Creatinine Estim Creat Clear Calc Estimated GFR POC Glucose Random Glucose Estimat Average Glucose Hemoglobin A1c % Calcium Vitamin B12 1183 H Folate 10.8 Random Vancomycin 4.0 L Blood Type A Positive Antibody Screen NEGATIVE Crossmatch See Detail 12/02/20 12/02/20 12/02/20 06:09 06:09 06:09 WBC 22.8 H RBC 2.77 L Hgb 7.8 L Hct 25.9 L MCV 93.5 MCH 28.2 MCHC 30.1 L RDW 18.1 H Plt Count 739 H MPV 9.1 L Immature Gran % (Auto) 1.0 H Neut % (Auto) 84.3 H Lymph % (Auto) 4.9 L [place] % (Auto) 9.6 Eos % (Auto) 0.1 Baso % (Auto) 0.1 Lymph # (Auto) 1.1 L [place] # (Auto) 2.2 H Eos # (Auto) 0.0 Baso # (Auto) 0.0 Abs Immat Gran (auto) 0.22 H Absolute Neuts (auto) 19.2 H Absolute Nucleated RBC 0.030 H Nucleated RBC % (auto) 0.1 Smear Tech's Comments VERIFIED Absolute Retic 0.040 Percent Retic 1.4 Immature Retic Fraction 26.2 H Retic Hgb Equivalent 24.2 L VBG pH VBG pCO2 VBG pO2 VBG HCO3 VBG O2 Saturation VBG Base Excess Sodium 139 Potassium 3.7 D Chloride 97 Carbon Dioxide 35 H Anion Gap 11 L BUN 11 Creatinine 0.63 Estim Creat Clear Calc 73.9 Estimated GFR > 60 POC Glucose Random Glucose 168 H Estimat Average Glucose Hemoglobin A1c % Calcium 8.4 Vitamin B12 Folate Random Vancomycin Blood Type Antibody Screen Crossmatch 12/02/20 12/02/20 12/02/20 06:10 06:13 11:31 WBC RBC Hgb Hct MCV MCH MCHC RDW Plt Count MPV Immature Gran % (Auto) Neut % (Auto) Lymph % (Auto) [place] % (Auto) Eos % (Auto) Baso % (Auto) Lymph # (Auto) [place] # (Auto) Eos # (Auto) Baso # (Auto) Abs Immat Gran (auto) Absolute Neuts (auto) Absolute Nucleated RBC Nucleated RBC % (auto) Smear Tech's Comments Absolute Retic Percent Retic Immature Retic Fraction Retic Hgb Equivalent VBG pH 7.38 VBG pCO2 70 VBG pO2 110 VBG HCO3 42 H VBG O2 Saturation 98.0 VBG Base Excess 14.4 Sodium Potassium Chloride Carbon Dioxide Anion Gap BUN Creatinine Estim Creat Clear Calc Estimated GFR POC Glucose 167 H Random Glucose Estimat Average Glucose 148 Hemoglobin A1c % 6.8 Calcium Vitamin B12 Folate Random Vancomycin Blood Type Antibody Screen Crossmatch Microbiology Microbiology Results: Microbiology 12/01/20 13:50 Sputum - Expectorated Gram Stain - Final 12/01/20 13:50 Sputum - Expectorated Sputum Culture - Preliminary Culture in progress. 11/29/20 06:07 Blood - Venous Blood Culture - Preliminary No growth after 48 hours. 11/29/20 05:59 Blood - Venous Blood Culture - Preliminary No growth after 48 hours. Assessment and Plan (1) HCAP (healthcare-associated pneumonia): Status: Inactive Assessment and Plan: hospital d#4 65yo M with COPD, SYED intolerant of treatment, bronchiectasis, chronic hypoxic respiratory failure, recent admission 10/25-11/04/20 for Serratia marcescens pneumonia, subsequent re-admission 11/16/20 from which he signed out AMA admitted for acute/chronic hypoxic/hypercapneic respiratory failure and sepsis due to COPD exacerbation and pneumonia # acute hypoxic/hypercapneic respiratory failure - wean O2 as tolerated - acetazolamide # COPD exacerbation # bronchiectasis - steroid taper as per Pulmonology- change IV methylprednisolone to PO prednisone; prn nebs; continue ICS/LABA + LTRA # pneumonia - s/p vanc + pip/josette x3d, de-escalate to doxycycline alone- cultures negative # AIHA/RUPERTO/ACD - IV iron, Heme/Onc consult appreciated, labs suggested minimal hemolysis; already on steroids for COPD; will transfuse 2u pRBCs given tachycardia # DM2, A1c 6.8 - appears to be new dx; could be related to the amount of steroids he's received in the last few months; correction-dose lispro # moderate protein/calorie malnutrition - supplements # VTE ppx - LMWH # code status - as per extensive discussion with pt and his daughter 12/01/20 pt is full code
[2020-12-02 20:15] LABS: Glucose, Whole Blood 147 mg/dL (60-115)
[2020-12-02] MEDS: Montelukast Sodium 10 MG TABLET PO (21:33)
[2020-12-02] MEDS: Enoxaparin Sodium 40 MG/0.4 ML SYRINGE SUBCUT (21:33)
[2020-12-03] VITALS (11 sets, daily range): BP systolic 92–115; BP diastolic 57–67; PULSE 82–124; RESP 18–20; TEMP 36.2–37; O2SAT 90–96
[2020-12-03] MEDS: Albuterol/Iprat 2.5/0.5MG 3 ML AMPUL.NEB INHALE ×4 (06:27→19:42)
[2020-12-03 07:02] LABS: Basophils Percent Auto 0.1 % (0-2); Eosinophils Absolute Auto 0.1 X10*3/uL (0.0-0.4); Eosinophils Percent Auto 0.4 % (0-4); Hematocrit 39.7 % (42-52); Hemoglobin 12.3 g/dl (14.0-18.0); Imm Gran Abs Auto 0.14 X10*3/uL (0.00-0.03); Imm Gran Pct Auto 0.9 % (0.0-0.4); Lymphocytes Absolute Auto 1.9 X10*3/uL (1.2-4.9); Lymphocytes Percent Auto 11.5 % (20-40); MANUAL DIFF FLAG SCAN; Mean Corpuscular Hemoglobin 28.5 pg (27.0-33.0); Mean Corpuscular Volume 92.1 fL (80-98); Mean Platelet Volume 8.9 fL (9.4-12.4); Monocytes Absolute Auto 1.5 X10*3/uL (0.1-1.2); Monocytes Percent Auto 9.4 % (2-11); NRBC Pct Auto 0.1 /100WBC (0.0-0.2); Neutrophils Absolute Auto 12.5 X10*3/uL (2.0-8.3); Neutrophils Percent Auto 77.7 % (45-73); Platelet Count 665 X10*3/uL (160-400); Red Blood Count 4.31 X10*6/uL (4.60-5.80); Red Cell Distribution Width 17.1 % (11.0-16.0); SCAN SMEAR FLAG 1; White Blood Count 16.1 X10*3/uL (4.8-10.8)
[2020-12-03 07:29] LABS: Glucose, Whole Blood 87 mg/dL (60-115)
[2020-12-03 07:31] LABS: Anion Gap 12 (12-20); Blood Urea Nitrogen 13 mg/dL (9-16); Calcium 8.8 mg/dL (8.4-10.2); Carbon Dioxide 36 mmol/L (22-29); Chloride 96 mmol/L (96-108); Estimated Glomerular Filt Rate > 60; Glucose Random 84 mg/dL (60-115); Potassium 3.9 mmol/L (3.3-5.1); Sodium 140 mmol/L (135-145)
[2020-12-03] MEDS: Fluticasone/Vilanterol 200/25 BLST.W.DEV 1 PUFF INHALE (07:31)
[2020-12-03 07:35] LABS: Vancomycin Trough 5.1 mcg/mL (10.0-20.0)
[2020-12-03] MEDS: acetaZOLAMIDE 250 MG TABLET PO ×2 (07:58→22:18)
[2020-12-03] MEDS: Atorvastatin Calcium 20 MG TABLET PO (07:58)
[2020-12-03] MEDS: Gabapentin 300 MG CAPSULE PO ×3 (07:58→22:18)
[2020-12-03] MEDS: Omeprazole 20 MG CAPSULE.DR PO (07:59)
[2020-12-03] MEDS: Aspirin Enteric Coated 81 MG TABLET.DR PO (07:59)
[2020-12-03] MEDS: Docusate Sodium 100 MG CAPSULE PO ×2 (07:59→22:18)
[2020-12-03] MEDS: predniSONE 20 MG TABLET 40 MG PO (07:59)
[2020-12-03] MEDS: 0.9 % Sodium Chloride Flush 3 ML SYRINGE IVFLUSH ×3 (07:59→22:25)
[2020-12-03 08:22] LABS: SLIDE REVIEW VERIFIED
[2020-12-03] MEDS: Sodium Ferric Gluconat/Sucrose 125 MG in 0.9 % Sodium Chloride 100 ML 100 MG IV (09:21)
--- NOTE | 2020-12-03 10:10 | P.PNPL_ITS ---
Subjective Subjective Date of Service: 12/03/20 Interval history: The patient was seen on exam. Currently on 5 L of nasal cannula. Feels a little better. He has been having increased weakness due to his multiple exacerbations and frequent readmissions. The patient is looking going to pulmonary rehabilitation. The patient has underlying chronic hypercarbic respiratory failure due to his advanced COPD. This is resulting in a poor prognosis and multiple admissions to the hospital. The patient has tried BiPAP in the hospital setting, but, still significant hypercarbia. The patient needs to be placed on noninvasive ventilation at home in order to decrease hospitalizations and improve his prognosis. The patient is agreeable to this. In the meantime he is going to continue with current respiratory therapy. Objective Data Labs CBC & Chem 7: 12/03/20 06:48 12/03/20 06:48 Labs: Laboratory Results - last 24 hr 11/30/20 12/02/20 12/02/20 10:36 11:31 20:12 WBC RBC Hgb Hct MCV MCH MCHC RDW Plt Count MPV Immature Gran % (Auto) Neut % (Auto) Lymph % (Auto) [place] % (Auto) Eos % (Auto) Baso % (Auto) Lymph # (Auto) [place] # (Auto) Eos # (Auto) Baso # (Auto) Abs Immat Gran (auto) Absolute Neuts (auto) Absolute Nucleated RBC Nucleated RBC % (auto) Smear Tech's Comments Sodium Potassium Chloride Carbon Dioxide Anion Gap BUN Creatinine Estim Creat Clear Calc Estimated GFR POC Glucose 167 H 147 H Random Glucose Calcium Vancomycin Trough Blood Type A Positive Antibody Screen NEGATIVE Crossmatch See Detail 12/03/20 12/03/20 12/03/20 06:48 06:48 06:48 WBC 16.1 H RBC 4.31 L D Hgb 12.3 L D Hct 39.7 L D MCV 92.1 MCH 28.5 MCHC 31.0 RDW 17.1 H Plt Count 665 H MPV 8.9 L Immature Gran % (Auto) 0.9 H Neut % (Auto) 77.7 H Lymph % (Auto) 11.5 L [place] % (Auto) 9.4 Eos % (Auto) 0.4 Baso % (Auto) 0.1 Lymph # (Auto) 1.9 [place] # (Auto) 1.5 H Eos # (Auto) 0.1 Baso # (Auto) 0.0 Abs Immat Gran (auto) 0.14 H Absolute Neuts (auto) 12.5 H Absolute Nucleated RBC 0.020 H Nucleated RBC % (auto) 0.1 Smear Tech's Comments VERIFIED Sodium 140 Potassium 3.9 Chloride 96 Carbon Dioxide 36 H Anion Gap 12 BUN 13 Creatinine 0.59 Estim Creat Clear Calc 79.0 Estimated GFR > 60 POC Glucose Random Glucose 84 D Calcium 8.8 Vancomycin Trough 5.1 L Blood Type Antibody Screen Crossmatch 12/03/20 07:21 WBC RBC Hgb Hct MCV MCH MCHC RDW Plt Count MPV Immature Gran % (Auto) Neut % (Auto) Lymph % (Auto) [place] % (Auto) Eos % (Auto) Baso % (Auto) Lymph # (Auto) [place] # (Auto) Eos # (Auto) Baso # (Auto) Abs Immat Gran (auto) Absolute Neuts (auto) Absolute Nucleated RBC Nucleated RBC % (auto) Smear Tech's Comments Sodium Potassium Chloride Carbon Dioxide Anion Gap BUN Creatinine Estim Creat Clear Calc Estimated GFR POC Glucose 87 Random Glucose Calcium Vancomycin Trough Blood Type Antibody Screen Crossmatch Microbiology Microbiology Results: Microbiology 12/01/20 13:50 Sputum - Expectorated Gram Stain - Final 12/01/20 13:50 Sputum - Expectorated Sputum Culture - Final 11/29/20 06:07 Blood - Venous Blood Culture - Preliminary No growth after 48 hours. 11/29/20 05:59 Blood - Venous Blood Culture - Preliminary No growth after 48 hours. Review of Systems Review of Systems constitutional: looks short of breath which he says slightly improving HEENT: denies any eye pain or discharge. Respiratory: Short of breath has cough cardiovascular: Denies any chest pain Denies any urinary complaints denies any abdominal pain or nausea or vomiting or fever or chills currently. Denies any weakness or numbness or any muscle pain seems anxious slightly Physical Exam Vital Signs: Vital Signs: Last Vital Signs Temp 97.4 F 12/03/20 07:29 Pulse 106 H 12/03/20 07:29 Resp 20 12/03/20 07:29 BP 104/58 L 12/03/20 07:29 Pulse Ox 92 12/03/20 07:29 Body Mass Index 17.2 Const: General: alert Eyes: Pupils: Equal, round and reactive pupils present Neck: Neck: Yes normal visual inspection, Yes full ROM and Yes no lymphadenopathy Chest: Chest palpation & inspection: normal inspection of the chest Resp: Auscultation: rhonchi and diminished lung sounds Cardio: Rate: regular rate Rhythm: regular rhythm Heart sounds: S1 normal heart sound present and S2 normal heart sound present GI: Palpation (GI): Soft to palpation and nontender Auscultation: normal bowel sounds Skin: General skin exam: rashes and/or lesions noted Neuro: Cranial nerves: Yes Equal, round and reactive pupils present Assessment and Plan Assessment and plan (1) Acute exacerbation of chronic obstructive pulmonary disease: Status: Acute (2) Chronic hypercapnic respiratory failure: Problem details: The patient has advanced chronic hypercarbic respiratory failure due to his COPD. He has a poor prognosis and has been admitted to the hospital frequently. The patient needs to start a noninvasive ventilator in order to improve his gas exchange improve his prognosis and ultimately decreases hospitalizations. We will arrange this with local DME company to get him started as soon as possible. Status: Acute (3) SYED (mycobacterium avium-intracellulare): Problem details: HE HAS HAD TO MA I INFECTION, TREATMENT TRIED IN THE PAST BUT HE COULD NOT TOLERATE. THIS IS GOING TO BE A CHRONIC COLONIZATION AND NO ACTIVE TREATMENT NEEDED FOR THIS AT THIS TIME Status: Acute Time Spent With Patient Time: Total time spent is greater than 50% in coordination of care (as documented) at patient's floor/unit and/or counseling patient: Time with patient: 15 - 24 minutes
[2020-12-03 11:21] LABS: Glucose, Whole Blood 157 mg/dL (60-115)
[2020-12-03] MEDS: Insulin Lispro 100 UNIT/ML 3 ML VIAL SUBCUT ×3 (12:24→22:25)
[2020-12-03] MEDS: hydrOXYzine HCL 25 MG TABLET PO (15:30)
[2020-12-03 16:17] LABS: Glucose, Whole Blood 376 mg/dL (60-115)
--- NOTE | 2020-12-03 17:38 | P.PNIM_ITS ---
Subjective Subjective Date of Service: 12/03/20 Interval History: tolerated transfusion well still quite dyspneic cough improved no fever no chest pain Physical Exam Vital Signs: Vital Signs: Last Vital Signs Temp 98.1 F 12/03/20 15:07 Pulse 120 H 12/03/20 15:07 Resp 19 12/03/20 15:07 BP 115/67 12/03/20 15:07 Pulse Ox 94 12/03/20 15:07 Body Mass Index 17.2 Gen: chronically ill-appearing, temporal wasting HEENT: sclera anicteric, pale mucus membranes Neck: supple Lungs: diminished breath sounds Heart: regular rate and rhythm, no murmurs Abd: soft, non-tender, non-distended Ext: no edema Skin: warm/well-perfused Neuro: alert and oriented x3, no focal findings Psych: appropriate affect Objective Data Current Medications Generic Name Dose Route Start Last Admin Trade Name Freq PRN Reason Stop Dose Admin Acetaminophen 650 mg 12/03/20 15:33 Acetaminophen 325 Mg Tablet PO Q6H PRN fever/pain Acetazolamide 250 mg 12/01/20 09:00 12/03/20 07:58 Acetazolamide 250 Mg Tablet PO 250 mg BID ALFONSO Administration Albuterol/Ipratropium 3 ml 11/29/20 09:22 12/03/20 06:27 Albuterol/Iprat 2.5/0.5mg 3 Ml Ampul.Neb INHALE 3 ml Q3H PRN Administration Shortness of Breath Albuterol/Ipratropium 3 ml 12/01/20 08:00 12/03/20 15:10 Albuterol/Iprat 2.5/0.5mg 3 Ml Ampul.Neb INHALE 3 ml RQID ALFONSO Administration Aspirin 81 mg 11/30/20 09:00 12/03/20 07:59 Aspirin Enteric Coated 81 Mg Tablet. PO 81 mg DAILY ALFONSO Administration Atorvastatin Calcium 20 mg 11/30/20 09:00 12/03/20 07:58 Atorvastatin Calcium 20 Mg Tablet PO 20 mg DAILY ALFONSO Administration Docusate Sodium 100 mg 11/29/20 21:00 12/03/20 07:59 Docusate Sodium 100 Mg Capsule PO 100 mg BID ALFONSO Administration Doxycycline Hyclate 100 mg 12/02/20 19:00 12/03/20 16:54 Doxycycline Hyclate 100 Mg Tablet PO 100 mg Q12H ALFONSO Administration Enoxaparin Sodium 40 mg 11/30/20 21:00 12/02/20 21:33 Enoxaparin Sodium 40 Mg/0.4 Ml Syringe SUBCUT 40 mg Q24H ALFONSO Administration Fluticasone Propionate 2 spray 11/29/20 18:25 Fluticasone Propionate Nasal 16 Gm Scott NOSTRIL-B DAILY PRN Nasal Congestion Fluticasone/Vilanterol 1 puff 11/30/20 09:00 12/03/20 07:31 Fluticasone/Vilanterol 200/25 Blst.W.Dev INHALE 1 puff DAILY ALFONSO Administration Gabapentin 300 mg 11/29/20 21:00 12/03/20 15:30 Gabapentin 300 Mg Capsule PO 300 mg TID ALFONSO Administration Guaifenesin/Dextromethorphan 5 ml 11/30/20 09:36 12/01/20 21:23 Guaifenesin Dm 100/10/5 Ml 5 Ml Syrup PO 5 ml Q4H PRN Administration cough Hydroxyzine HCl 25 mg 11/29/20 18:25 12/03/20 15:30 Hydroxyzine Hcl 25 Mg Tablet PO 25 mg TID PRN Administration anxiety Insulin Human Lispro 0 unit 12/02/20 11:30 12/03/20 16:55 Insulin Lispro 100 Unit/Ml 3 Ml Vial SUBCUT 10 unit QIDACHS [facility] Administration Protocol Montelukast Sodium 10 mg 11/29/20 21:00 12/02/20 21:33 Montelukast Sodium 10 Mg Tablet PO 10 mg BEDTIME ALFONSO Administration Omeprazole 20 mg 11/29/20 09:30 12/03/20 07:59 Omeprazole 20 Mg Capsule. PO 20 mg DAILY ALFONSO Administration Pharmacy Consult 1 each 11/29/20 09:22 Consult Rx Vancomycin Dosing MISCELLANE DAILY PRN Consult order Pharmacy Consult 1 each 11/29/20 12:52 Consult Rx Perform Med Rec MISCELLANE ONCE PRN Consult order Prednisone 40 mg 12/01/20 09:00 12/03/20 07:59 Prednisone 20 Mg Tablet PO 40 mg DAILY ALFONSO Administration Sodium Chloride 3 ml 11/30/20 00:00 12/03/20 15:30 0.9 % Sodium Chloride Flush 3 Ml Syringe IVFLUSH 3 ml QSHIFT [facility] Administration Labs CBC & Chem 7: 12/03/20 06:48 12/03/20 06:48 Labs: Laboratory Results - last 24 hr 11/30/20 12/02/20 12/03/20 10:36 20:12 06:48 WBC RBC Hgb Hct MCV MCH MCHC RDW Plt Count MPV Immature Gran % (Auto) Neut % (Auto) Lymph % (Auto) [place] % (Auto) Eos % (Auto) Baso % (Auto) Lymph # (Auto) [place] # (Auto) Eos # (Auto) Baso # (Auto) Abs Immat Gran (auto) Absolute Neuts (auto) Absolute Nucleated RBC Nucleated RBC % (auto) Smear Tech's Comments Sodium Potassium Chloride Carbon Dioxide Anion Gap BUN Creatinine Estim Creat Clear Calc Estimated GFR POC Glucose 147 H Random Glucose Calcium Vancomycin Trough 5.1 L Blood Type A Positive Antibody Screen NEGATIVE Crossmatch See Detail 12/03/20 12/03/20 12/03/20 06:48 06:48 07:21 WBC 16.1 H RBC 4.31 L D Hgb 12.3 L D Hct 39.7 L D MCV 92.1 MCH 28.5 MCHC 31.0 RDW 17.1 H Plt Count 665 H MPV 8.9 L Immature Gran % (Auto) 0.9 H Neut % (Auto) 77.7 H Lymph % (Auto) 11.5 L [place] % (Auto) 9.4 Eos % (Auto) 0.4 Baso % (Auto) 0.1 Lymph # (Auto) 1.9 [place] # (Auto) 1.5 H Eos # (Auto) 0.1 Baso # (Auto) 0.0 Abs Immat Gran (auto) 0.14 H Absolute Neuts (auto) 12.5 H Absolute Nucleated RBC 0.020 H Nucleated RBC % (auto) 0.1 Smear Tech's Comments VERIFIED Sodium 140 Potassium 3.9 Chloride 96 Carbon Dioxide 36 H Anion Gap 12 BUN 13 Creatinine 0.59 Estim Creat Clear Calc 79.0 Estimated GFR > 60 POC Glucose 87 Random Glucose 84 D Calcium 8.8 Vancomycin Trough Blood Type Antibody Screen Crossmatch 12/03/20 12/03/20 11:09 16:06 WBC RBC Hgb Hct MCV MCH MCHC RDW Plt Count MPV Immature Gran % (Auto) Neut % (Auto) Lymph % (Auto) [place] % (Auto) Eos % (Auto) Baso % (Auto) Lymph # (Auto) [place] # (Auto) Eos # (Auto) Baso # (Auto) Abs Immat Gran (auto) Absolute Neuts (auto) Absolute Nucleated RBC Nucleated RBC % (auto) Smear Tech's Comments Sodium Potassium Chloride Carbon Dioxide Anion Gap BUN Creatinine Estim Creat Clear Calc Estimated GFR POC Glucose 157 H 376 H* Random Glucose Calcium Vancomycin Trough Blood Type Antibody Screen Crossmatch Microbiology Microbiology Results: Microbiology 12/01/20 13:50 Sputum - Expectorated Gram Stain - Final 12/01/20 13:50 Sputum - Expectorated Sputum Culture - Final 11/29/20 06:07 Blood - Venous Blood Culture - Preliminary No growth after 48 hours. 11/29/20 05:59 Blood - Venous Blood Culture - Preliminary No growth after 48 hours. Assessment and Plan (1) HCAP (healthcare-associated pneumonia): Status: Inactive Assessment and Plan: hospital d#5 65yo M with COPD, SYED intolerant of treatment, bronchiectasis, chronic hypoxic respiratory failure, recent admission 10/25-11/04/20 for Serratia marcescens pneumonia, subsequent re-admission 11/16/20 from which he signed out AMA admitted for acute/chronic hypoxic/hypercapneic respiratory failure and sepsis due to COPD exacerbation and pneumonia # acute hypoxic/hypercapneic respiratory failure - wean O2 as tolerated - acetazolamide # COPD exacerbation # bronchiectasis - slow steroid taper as per Pulmonology; prn nebs; continue ICS/LABA + LTRA # pneumonia - s/p vanc + pip/josette x3d, de-escalated to doxycycline alone- cultures negative # AIHA/RUPERTO/ACD - IV iron, Heme/Onc consult appreciated, labs suggested minimal hemolysis; already on steroids for COPD # DM2, A1c 6.8 - appears to be new dx; could be related to the amount of steroids he's received in the last few months; correction-dose lispro # moderate protein/calorie malnutrition - supplements # VTE ppx - LMWH # code status - as per extensive discussion with pt and his daughter 12/01/20 pt is full code # dispo - inpt pulm rehab recommended
[2020-12-03 20:57] LABS: Glucose, Whole Blood 211 mg/dL (60-115)
[2020-12-03] MEDS: Enoxaparin Sodium 40 MG/0.4 ML SYRINGE SUBCUT (22:18)
[2020-12-03] MEDS: Montelukast Sodium 10 MG TABLET PO (22:18)
[2020-12-03 23:37] LABS: Strep Pneumo Ag urine Not Detected (Not Detected)
[2020-12-04] VITALS (10 sets, daily range): BP systolic 97–111; BP diastolic 56–70; PULSE 94–114; RESP 15–20; TEMP 36.2–37.2; O2SAT 92–96
[2020-12-04 06:33] LABS: VBG Base Excess 10.6 mmol/L; VBG HCO3 39 mmol/L (22-26); VBG pCO2 71 mmHg; VBG pH 7.34 (7.32-7.43); VBG pO2 71 mmHg
[2020-12-04 06:34] LABS: Venous Blood Gas Refer to POC result
[2020-12-04 06:47] LABS: Basophils Percent Auto 0.1 % (0-2); Eosinophils Absolute Auto 0.1 X10*3/uL (0.0-0.4); Eosinophils Percent Auto 0.4 % (0-4); Hematocrit 36.8 % (42-52); Hemoglobin 11.6 g/dl (14.0-18.0); MANUAL DIFF FLAG SCAN; Mean Corpuscular HGB Conc 31.5 g/dl (31.0-36.0); Mean Corpuscular Hemoglobin 28.9 pg (27.0-33.0); Mean Corpuscular Volume 91.8 fL (80-98); Mean Platelet Volume 9.3 fL (9.4-12.4); Monocytes Absolute Auto 1.6 X10*3/uL (0.1-1.2); Monocytes Percent Auto 7.9 % (2-11); Neutrophils Absolute Auto 17.4 X10*3/uL (2.0-8.3); Neutrophils Percent Auto 85.6 % (45-73); Platelet Count 678 X10*3/uL (160-400); Red Blood Count 4.01 X10*6/uL (4.60-5.80); SCAN SMEAR FLAG 1; White Blood Count 20.3 X10*3/uL (4.8-10.8)
[2020-12-04 07:05] LABS: Anion Gap 9 (12-20); Blood Urea Nitrogen 17 mg/dL (9-16); Calcium 9.1 mg/dL (8.4-10.2); Carbon Dioxide 34 mmol/L (22-29); Chloride 99 mmol/L (96-108); Creatinine Clr Calc Pharmacy 76.4; Estimated Glomerular Filt Rate > 60; Glucose Random 157 mg/dL (60-115); Potassium 4.1 mmol/L (3.3-5.1); Sodium 138 mmol/L (135-145)
[2020-12-04 07:21] LABS: SLIDE REVIEW VERIFIED
[2020-12-04 07:24] LABS: Glucose, Whole Blood 132 mg/dL (60-115)
[2020-12-04] MEDS: Fluticasone/Vilanterol 200/25 BLST.W.DEV 1 PUFF INHALE (07:29)
[2020-12-04] MEDS: Albuterol/Iprat 2.5/0.5MG 3 ML AMPUL.NEB INHALE ×4 (07:29→20:32)
[2020-12-04] MEDS: Docusate Sodium 100 MG CAPSULE PO ×2 (07:42→20:21)
[2020-12-04] MEDS: acetaZOLAMIDE 250 MG TABLET PO (07:42)
[2020-12-04] MEDS: Omeprazole 20 MG CAPSULE.DR PO (07:42)
[2020-12-04] MEDS: Atorvastatin Calcium 20 MG TABLET PO (07:42)
[2020-12-04] MEDS: Gabapentin 300 MG CAPSULE PO ×3 (07:43→20:21)
[2020-12-04] MEDS: 0.9 % Sodium Chloride Flush 3 ML SYRINGE IVFLUSH ×3 (07:43→20:21)
[2020-12-04] MEDS: predniSONE 20 MG TABLET 40 MG PO (07:43)
[2020-12-04] MEDS: hydrOXYzine HCL 25 MG TABLET PO (07:43)
[2020-12-04] MEDS: Acetaminophen 325 MG TABLET 650 MG PO (07:43)
[2020-12-04] MEDS: Aspirin Enteric Coated 81 MG TABLET.DR PO (07:43)
--- NOTE | 2020-12-04 09:21 | P.PNPL_ITS ---
Subjective Subjective Date of Service: 12/04/20 Interval history: The patient was seen on exam. Overall the patient is doing okay. He is on 4 L nasal cannula. His respiratory status is much improved. He did get approved for noninvasive ventilator to be started as soon as he is discharged from the hospital or from rehab. Objective Data Labs CBC & Chem 7: 12/04/20 06:16 12/04/20 06:16 Labs: Laboratory Results - last 24 hr 12/01/20 12/03/20 12/03/20 13:46 11:09 16:06 WBC RBC Hgb Hct MCV MCH MCHC RDW Plt Count MPV Immature Gran % (Auto) Neut % (Auto) Lymph % (Auto) [place] % (Auto) Eos % (Auto) Baso % (Auto) Lymph # (Auto) [place] # (Auto) Eos # (Auto) Baso # (Auto) Abs Immat Gran (auto) Absolute Neuts (auto) Absolute Nucleated RBC Nucleated RBC % (auto) Smear Tech's Comments VBG pH VBG pCO2 VBG pO2 VBG HCO3 VBG O2 Saturation VBG Base Excess Sodium Potassium Chloride Carbon Dioxide Anion Gap BUN Creatinine Estim Creat Clear Calc Estimated GFR POC Glucose 157 H 376 H* Random Glucose Calcium Ur Strep pneumoniae Ag Not Detected 12/03/20 12/04/20 12/04/20 20:45 06:16 06:16 WBC 20.3 H RBC 4.01 L Hgb 11.6 L Hct 36.8 L MCV 91.8 MCH 28.9 MCHC 31.5 RDW 17.0 H Plt Count 678 H MPV 9.3 L Immature Gran % (Auto) 1.0 H Neut % (Auto) 85.6 H Lymph % (Auto) 5.0 L [place] % (Auto) 7.9 Eos % (Auto) 0.4 Baso % (Auto) 0.1 Lymph # (Auto) 1.0 L [place] # (Auto) 1.6 H Eos # (Auto) 0.1 Baso # (Auto) 0.0 Abs Immat Gran (auto) 0.20 H Absolute Neuts (auto) 17.4 H Absolute Nucleated RBC 0.000 Nucleated RBC % (auto) 0.0 Smear Tech's Comments VERIFIED VBG pH VBG pCO2 VBG pO2 VBG HCO3 VBG O2 Saturation VBG Base Excess Sodium 138 Potassium 4.1 Chloride 99 Carbon Dioxide 34 H Anion Gap 9 L BUN 17 H Creatinine 0.61 Estim Creat Clear Calc 76.4 Estimated GFR > 60 POC Glucose 211 H Random Glucose 157 H D Calcium 9.1 Ur Strep pneumoniae Ag 12/04/20 12/04/20 06:26 07:14 WBC RBC Hgb Hct MCV MCH MCHC RDW Plt Count MPV Immature Gran % (Auto) Neut % (Auto) Lymph % (Auto) [place] % (Auto) Eos % (Auto) Baso % (Auto) Lymph # (Auto) [place] # (Auto) Eos # (Auto) Baso # (Auto) Abs Immat Gran (auto) Absolute Neuts (auto) Absolute Nucleated RBC Nucleated RBC % (auto) Smear Tech's Comments VBG pH 7.34 VBG pCO2 71 VBG pO2 71 VBG HCO3 39 H VBG O2 Saturation 91.0 VBG Base Excess 10.6 Sodium Potassium Chloride Carbon Dioxide Anion Gap BUN Creatinine Estim Creat Clear Calc Estimated GFR POC Glucose 132 H Random Glucose Calcium Ur Strep pneumoniae Ag Microbiology Microbiology Results: Microbiology 11/29/20 06:07 Blood - Venous Blood Culture - Final No growth after 5 days. 11/29/20 05:59 Blood - Venous Blood Culture - Final No growth after 5 days. 12/01/20 13:50 Sputum - Expectorated Gram Stain - Final 12/01/20 13:50 Sputum - Expectorated Sputum Culture - Final Review of Systems Review of Systems constitutional: looks short of breath which he says slightly improving HEENT: denies any eye pain or discharge. Respiratory: Short of breath has cough cardiovascular: Denies any chest pain Denies any urinary complaints denies any abdominal pain or nausea or vomiting or fever or chills currently. Denies any weakness or numbness or any muscle pain seems anxious slightly Constitutional: Denies night sweats Denies change in voice, Denies lip swelling, Denies mouth pain, Reports nasal congestion, Reports nasal discharge and Denies tongue swelling Cardiovascular: Denies chest pain Respiratory: Reports cough Gastrointestinal: Denies abdominal pain Musculoskeletal: Denies no additional musculoskeletal complaints Denies Neuro-related abnormal movements Psychiatric: Denies no additional psychiatric complaints Hematologic/Lymphatic: Denies easy bleeding and Denies lymphadenopathy Allergic/Immunologic: Denies lip swelling and Denies tongue swelling Physical Exam Vital Signs: Vital Signs: Last Vital Signs Temp 97.3 F 12/04/20 07:41 Pulse 107 H 12/04/20 07:41 Resp 18 12/04/20 07:41 BP 101/61 12/04/20 07:41 Pulse Ox 94 12/04/20 07:41 Body Mass Index 17.2 Const: General: alert Neck: Neck: Yes normal visual inspection, Yes full ROM and Yes no lymphadenopathy Chest: Chest palpation & inspection: normal inspection of the chest Resp: Auscultation: diminished lung sounds Cardio: Rate: regular rate Rhythm: regular rhythm Heart sounds: S1 normal heart sound present and S2 normal heart sound present GI: Palpation (GI): Soft to palpation and nontender Auscultation: normal avinash wel sounds Skin: General skin exam: rashes and/or lesions noted Assessment and Plan Assessment and plan (1) Bronchiectasis: Status: Acute (2) Chronic hypercapnic respiratory failure: Problem details: The patient has advanced chronic hypercarbic respiratory failure due to his COPD. He has a poor prognosis and has been admitted to the hospital frequently. The patient needs to start a noninvasive ventilator in order to improve his gas exchange improve his prognosis and ultimately decreases hospitalizations. We will arrange this with local [employer] company to get him started as soon as possible. Status: Acute (3) Acute exacerbation of chronic obstructive pulmonary disease: Status: Acute (4) COPD exacerbation: Status: Acute (5) SYED (mycobacterium avium-intracellulare): Problem details: HE HAS HAD TO MA I INFECTION, TREATMENT TRIED IN THE PAST BUT HE COULD NOT TOLERATE. THIS IS GOING TO BE A CHRONIC COLONIZATION AND NO ACTIVE TREATMENT NEEDED FOR THIS AT THIS TIME Status: Acute Assessment and Plan: Start noninvasive ventilator once he is discharged from the hospital Continue respiratory therapy Continue oxygen supplementation to maintain a pulse ox between 90-95%. He to minimize over oxygenation to minimize respiratory suppression The patient is awaiting disposition PT is recommend the inpatient pulmonary rehabilitation Time Spent With Patient Time: Total time spent is greater than 50% in coordination of care (as document ed) at patient's floor/unit and/or counseling patient: Time with patient: 15 - 24 minutes
[2020-12-04 11:03] LABS: Glucose, Whole Blood 231 mg/dL (60-115)
[2020-12-04] MEDS: Insulin Lispro 100 UNIT/ML 3 ML VIAL SUBCUT ×2 (12:37→17:13)
--- NOTE | 2020-12-04 13:18 | MHC.CLN ---
F/U PO ITNAKE 50% AVG DIET RX: REGULAR-APPROPRIATE PT RECEIVING 8OZ ENSURE TID TO INCREASE KCALS AND PROMOTE WT GAIN SUPPLEMENT PROVIDES 1050KCALS (78% EST KCALS NEEDS), 60G PROTEIN MONITOR PO INTAKE CLOSELY
[2020-12-04 13:21] LABS: COVID-19 Test Negative (Negative); IDNOW Serial# 9DD0AD1C
[2020-12-04 16:32] LABS: Glucose, Whole Blood 273 mg/dL (60-115)
--- NOTE | 2020-12-04 17:03 | HO.PM.IMPN ---
Subjective Subjective Date of Service: 12/04/20 Interval History: feels better; less dyspneic approved for home non-invasive ventilator Physical Exam Vital Signs: Vital Signs: Last Vital Signs Temp 97.2 F 12/04/20 16:00 Pulse 110 H 12/04/20 16:00 Resp 15 12/04/20 16:00 BP 99/56 L 12/04/20 16:00 Pulse Ox 94 12/04/20 16:00 Body Mass Index 17.2 Gen: chronically ill-appearing, temporal wasting HEENT: sclera anicteric, pale mucus membranes Neck: supple Lungs: diminished breath sounds Heart: regular rate and rhythm, no murmurs Abd: soft, non-tender, non-distended Ext: no edema Skin: warm/well-perfused Neuro: alert and oriented x3, no focal findings Psych: appropriate affect Objective Data Current Medications Generic Name Dose Route Start Last Admin Trade Name Freq PRN Reason Stop Dose Admin Acetaminophen 650 mg 12/03/20 15:33 12/04/20 07:43 Acetaminophen 325 Mg Tablet PO 650 mg Q6H PRN Administration fever/pain Albuterol/Ipratropium 3 ml 11/29/20 09:22 12/03/20 06:27 Albuterol/Iprat 2.5/0.5mg 3 Ml Ampul.Neb INHALE 3 ml Q3H PRN Administration Shortness of Breath Albuterol/Ipratropium 3 ml 12/01/20 08:00 12/04/20 15:51 Albuterol/Iprat 2.5/0.5mg 3 Ml Ampul.Neb INHALE 3 ml RQID ALFONSO Administration Aspirin 81 mg 11/30/20 09:00 12/04/20 07:43 Aspirin Enteric Coated 81 Mg Tablet.Dr PO 81 mg DAILY ALFONSO Administration Atorvastatin Calcium 20 mg 11/30/20 09:00 12/04/20 07:42 Atorvastatin Calcium 20 Mg Tablet PO 20 mg DAILY ALFONSO Administration Docusate Sodium 100 mg 11/29/20 21:00 12/04/20 07:42 Docusate Sodium 100 Mg Capsule PO 100 mg BID ALFONSO Administration Doxycycline Hyclate 100 mg 12/02/20 19:00 12/04/20 05:51 Doxycycline Hyclate 100 Mg Tablet PO 100 mg Q12H ALFONSO Administration Enoxaparin Sodium 40 mg 11/30/20 21:00 12/03/20 22:18 Enoxaparin Sodium 40 Mg/0.4 Ml Syringe SUBCUT 40 mg Q24H ALFONSO Administration Fluticasone Propionate 2 spray 11/29/20 18:25 Fluticasone Propionate Nasal 16 Gm [place] NOSTRIL-B DAILY PRN Nasal Congestion Fluticasone/Vilanterol 1 puff 11/30/20 09:00 12/04/20 07:29 Fluticasone/Vilanterol 200/25 Blst.W.Dev INHALE 1 puff DAILY ALFONSO Administration Gabapentin 300 mg 11/29/20 21:00 12/04/20 12:37 Gabapentin 300 Mg Capsule PO 300 mg TID ALFONSO Administration Guaifenesin/Dextromethorphan 5 ml 11/30/20 09:36 12/01/20 21:23 Guaifenesin Dm 100/10/5 Ml 5 Ml Syrup PO 5 ml Q4H PRN Administration cough Hydroxyzine HCl 25 mg 11/29/20 18:25 12/04/20 07:43 Hydroxyzine Hcl 25 Mg Tablet PO 25 mg TID PRN Administration anxiety Insulin Human Lispro 0 unit 12/02/20 11:30 12/04/20 12:37 Insulin Lispro 100 Unit/Ml 3 Ml Vial SUBCUT 4 unit QIDACHS ALFONSO Administration Protocol Montelukast Sodium 10 mg 11/29/20 21:00 12/03/20 22:18 Montelukast Sodium 10 Mg Tablet PO 10 mg BEDTIME ALFONSO Administration Omeprazole 20 mg 11/29/20 09:30 12/04/20 07:42 Omeprazole 20 Mg Capsule. PO 20 mg DAILY ALFONSO Administration Pharmacy Consult 1 each 11/29/20 09:22 Consult Rx Vancomycin Dosing MISCELLANE DAILY PRN Consult order Pharmacy Consult 1 each 11/29/20 12:52 Consult Rx Perform Med Rec MISCELLANE ONCE PRN Consult order Prednisone 40 mg 12/01/20 09:00 12/04/20 07:43 Prednisone 20 Mg Tablet PO 40 mg DAILY ALFONSO Administration Sodium Chloride 3 ml 11/30/20 00:00 12/04/20 07:43 0.9 % Sodium Chloride Flush 3 Ml Syringe IVFLUSH 3 ml QSHIFT ALFONSO Administration Labs CBC & Chem 7: 12/04/20 06:16 12/04/20 06:16 Labs: Laboratory Results - last 24 hr 12/01/20 12/03/20 12/04/20 13:46 20:45 06:16 WBC 20.3 H RBC 4.01 L Hgb 11.6 L Hct 36.8 L MCV 91.8 MCH 28.9 MCHC 31.5 RDW 17.0 H Plt Count 678 H MPV 9.3 L Immature Gran % (Auto) 1.0 H Neut % (Auto) 85.6 H Lymph % (Auto) 5.0 L [place] % (Auto) 7.9 Eos % (Auto) 0.4 Baso % (Auto) 0.1 Lymph # (Auto) 1.0 L [place] # (Auto) 1.6 H Eos # (Auto) 0.1 Baso # (Auto) 0.0 Abs Immat Gran (auto) 0.20 H Absolute Neuts (auto) 17.4 H Absolute Nucleated RBC 0.000 Nucleated RBC % (auto) 0.0 Smear Tech's Comments VERIFIED VBG pH VBG pCO2 VBG pO2 VBG HCO3 VBG O2 Saturation VBG Base Excess Sodium Potassium Chloride Carbon Dioxide Anion Gap BUN Creatinine Estim Creat Clear Calc Estimated GFR POC Glucose 211 H Random Glucose Calcium COVID-19 (LINDA) COVID-19 Clin Com Ur Strep pneumoniae Ag Not Detected 12/04/20 12/04/20 12/04/20 06:16 06:26 07:14 WBC RBC Hgb Hct MCV MCH MCHC RDW Plt Count MPV Immature Gran % (Auto) Neut % (Auto) Lymph % (Auto) [place] % (Auto) Eos % (Auto) Baso % (Auto) Lymph # (Auto) [place] # (Auto) Eos # (Auto) Baso # (Auto) Abs Immat Gran (auto) Absolute Neuts (auto) Absolute Nucleated RBC Nucleated RBC % (auto) Smear Tech's Comments VBG pH 7.34 VBG pCO2 71 VBG pO2 71 VBG HCO3 39 H VBG O2 Saturation 91.0 VBG Base Excess 10.6 Sodium 138 Potassium 4.1 Chloride 99 Carbon Dioxide 34 H Anion Gap 9 L BUN 17 H Creatinine 0.61 Estim Creat Clear Calc 76.4 Estimated GFR > 60 POC Glucose 132 H Random Glucose 157 H D Calcium 9.1 COVID-19 (LINDA) COVID-19 Clin Com Ur Strep pneumoniae Ag 12/04/20 12/04/20 12/04/20 10:53 12:35 16:25 WBC RBC Hgb Hct MCV MCH MCHC RDW Plt Count MPV Immature Gran % (Auto) Neut % (Auto) Lymph % (Auto) [place] % (Auto) Eos % (Auto) Baso % (Auto) Lymph # (Auto) [place] # (Auto) Eos # (Auto) Baso # (Auto) Abs Immat Gran (auto) Absolute Neuts (auto) Absolute Nucleated RBC Nucleated RBC % (auto) Smear Tech's Comments VBG pH VBG pCO2 VBG pO2 VBG HCO3 VBG O2 Saturation VBG Base Excess Sodium Potassium Chloride Carbon Dioxide Anion Gap BUN Creatinine Estim Creat Clear Calc Estimated GFR POC Glucose 231 H 273 H Random Glucose Calcium COVID-19 (LINDA) Negative COVID-19 Clin Com See Note Ur Strep pneumoniae Ag Microbiology Microbiology Results: Microbiology 11/29/20 06:07 Blood - Venous Blood Culture - Final No growth after 5 days. 11/29/20 05:59 Blood - Venous Blood Culture - Final No growth after 5 days. 12/01/20 13:50 Sputum - Expectorated Gram Stain - Final 12/01/20 13:50 Sputum - Expectorated Sputum Culture - Final Assessment and Plan (1) HCAP (healthcare-associated pneumonia): Status: Inactive Assessment and Plan: hospital d#6 65yo M with COPD, SYED intolerant of treatment, bronchiectasis, chronic hypoxic respiratory failure, recent admission 10/25-11/04/20 for Serratia marcescens pneumonia, subsequent re-admission 11/16/20 from which he signed out AMA admitted for acute/chronic hypoxic/hypercapneic respiratory failure and sepsis due to COPD exacerbation and pneumonia # acute hypoxic/hypercapneic respiratory failure - wean O2 as tolerated - BiPAP at night; home non-invasive ventilator # COPD exacerbation # bronchiectasis - slow steroid taper as per Pulmonology (decrease prednisone by 10mg q wk); prn nebs; continue ICS/LABA + LTRA # pneumonia - s/p vanc + pip/josette x3d, de-escalated to doxycycline alone d#3/4- cultures negative + PCT low # AIHA/RUPERTO/ACD - s/p IV iron, Heme/Onc consult appreciated, labs suggested minimal hemolysis; already on steroids for COPD # DM2, A1c 6.8 - appears to be new dx; could be related to the amount of steroids he's received in the last few months; correction-dose lispro # moderate protein/calorie malnutrition - supplements # VTE ppx - LMWH # code status - as per extensive discussion with pt and his daughter 12/01/20 pt is full code # dispo - awaiting authorization for STR/inpt pulm rehab
--- NOTE | 2020-12-04 18:13 | PC.NURSE ---
Notified Dr. Etienne of continued HR in 110-115. Patient denies CP/SOB at this time. No new orders at present.
[2020-12-04] MEDS: Montelukast Sodium 10 MG TABLET PO (20:21)
[2020-12-04] MEDS: Enoxaparin Sodium 40 MG/0.4 ML SYRINGE SUBCUT (20:21)
[2020-12-04 20:29] LABS: Glucose, Whole Blood 150 mg/dL (60-115)
[2020-12-05] VITALS (7 sets, daily range): BP systolic 94–116; BP diastolic 61–69; PULSE 106–133; RESP 18–20; TEMP 36.4–36.8; O2SAT 89–96
[2020-12-05 07:28] LABS: Glucose, Whole Blood 149 mg/dL (60-115)
[2020-12-05] MEDS: Albuterol/Iprat 2.5/0.5MG 3 ML AMPUL.NEB INHALE (07:40)
[2020-12-05] MEDS: Fluticasone/Vilanterol 200/25 BLST.W.DEV 1 PUFF INHALE (07:55)
[2020-12-05] MEDS: Aspirin Enteric Coated 81 MG TABLET.DR PO (10:01)
[2020-12-05] MEDS: predniSONE 20 MG TABLET 40 MG PO (10:02)
[2020-12-05] MEDS: Gabapentin 300 MG CAPSULE PO (10:02)
[2020-12-05] MEDS: Docusate Sodium 100 MG CAPSULE PO (10:02)
[2020-12-05] MEDS: Omeprazole 20 MG CAPSULE.DR PO (10:02)
[2020-12-05] MEDS: Atorvastatin Calcium 20 MG TABLET PO (10:02)
--- NOTE | 2020-12-05 10:14 | MHC.CM.PN ---
Per discussion with MD, Patient has been medically cleared for dc to STR/SNF today. Patient will dc [facility] facility- [facility] today at 11:30 AM, via [facility]. Patient and Daughter/HCP/Marie at [phone] are aware of and in agreement with the dc plan. Last IMM addressed yesterday.
[2020-12-05 11:07] LABS: Glucose, Whole Blood 227 mg/dL (60-115)
[2020-12-05] MEDS: Ipratropium Bromide 0.5 MG/2.5 ML SOLUTION INHALE (11:07)
--- NOTE | 2020-12-05 11:14 | PM.DS ---
DS: Providers Provider Date of Service: 12/05/20 Date of admission: 11/29/20 18:08 Primary care physician: Eliza Lorenzana NP [address] [address] Consults: 11/29/20 08:03 Consult to Pulmonology Routine Consulting Provider[place] [facility] Reason for consultation: acute repiratory failure /pneumonia Has provider been notified: No 11/29/20 09:56 Consult to Infectious Diseases Routine Consulting Provider: Roz Canseco Reason for consultation: acute hypoxemic respiratory failure /pneumonia Has provider been notified: No 12/01/20 08:20 Consult to Hematology / Oncology Routine Consulting Provider[place] [facility] [place] Reason for consultation: AIHA + RUPERTO DS: Diagnosis Discharge Diagnosis (1) Acute exacerbation of chronic obstructive pulmonary disease: Status: Acute (2) Bronchiectasis: Status: Acute (3) Protein-calorie malnutrition, moderate: Status: Acute (4) Acute on chronic respiratory failure with hypoxia and hypercapnia: Status: Acute (5) AIHA (autoimmune hemolytic anemia): Status: Acute (6) Anemia, chronic disease: Status: Acute (7) Iron deficiency anemia: Status: Acute (8) Pneumonia: Status: Acute (9) Sepsis: Status: Acute (10) Moderate protein-calorie malnutrition: Status: Acute DS: Medications Discharge Medications Home Medications: Home Medications Medication Instructions Recorded Confirmed aspirin 81 mg PO DAILY 06/01/20 11/29/20 atorvastatin 20 mg PO DAILY 06/01/20 11/29/20 montelukast 10 mg PO BEDTIME 06/01/20 11/29/20 ferrous sulfate 325 mg PO DAILY 08/05/20 11/29/20 fluticasone propionate 2 spray INTRANASAL DAILY PRN 08/05/20 11/29/20 ketoconazole 1 appl TOPICAL 2XW 08/05/20 11/29/20 multivitamin 1 tab PO DAILY 08/05/20 11/29/20 sennosides [senna] 1 - 2 tab PO BID PRN 08/05/20 11/29/20 Incruse Ellipta 1 inh INHALATION DAILY 09/03/20 11/29/20 Breo Ellipta 1 inh INHALATION DAILY 10/10/20 11/29/20 gabapentin 300 mg PO TID 10/10/20 11/29/20 valsartan 40 mg PO DAILY 10/10/20 11/29/20 hydroxyzine HCl 25 mg PO TID PRN 11/15/20 11/29/20 docusate sodium 100 mg PO BID 11/29/20 11/29/20 Previous Rx's Medication Instructions Recorded doxycycline hyclate 100 mg PO Q12H #2 tab 12/05/20 insulin lispro [Humalog U-100 1 sliding scale dose SUBCUT 12/05/20 Insulin] QIDACHS #10 ml ipratropium bromide 2 puff INHALATION Q6H PRN #12.9 g 12/05/20 levalbuterol tartrate 2 puff INHALATION Q4H PRN #15 g 12/05/20 omeprazole 20 mg PO DAILY #30 cap 12/05/20 prednisone See Rx Instructions .ROUTE 12/05/20 .COMPLEX #50 tab DS: Summary Hospital Course Hospital Course: From admission history and physical by the hospitalist Augustus Domínguez, 11/29/20: 65-year-old male of COPD, [SYED], recent COVID-19 pneumonia, who presents to the hospital with complaints of back pain. Patient was recently hospitalized in early October and was discharged on the after being managed for on chronic hypoxic respiratory failure due to combination of COPD exacerbation and Serratia marcescens pneumonia superimposed on bronchiectasis and chronic anemia infection. At that time was treated with intravenous glucocorticoid plus azithromycin and inhaled tobramycin as well as levofloxacin. His oxygen was weaned down to his O2 baseline . patient was recently here sepsis/acute respiratory failure as well as COPD exacerb;ation which was being treated that time and he left against the medical advice on 11/16. patient came to the hospital again today with the shortness of breath, has some cough as per his daughter's he also subjective fever 2 days back but she did not take the temperature. has leukocytosis increased from before. COVID negative, UA negative, chest CT: worsening atelectatic changes at the bases, bronchiectasis, pneumatoceles. AB.36/76/158 in the emergency room patient received fluid bolus, Zosyn, Solu-Medrol and placed on high-flow, blood pressure was softer 90s range. The patient was admitted to the [facility] [place] for acute/chronic hypoxic/hypercapneic respiratory failure due to COPD exacerbation and sepsis from pneumonia. He was treated with vancomycin and piperacillin/tazobactam for 3 days, then when cultures were negative and procalcitonin remained low, de-escalated to doxycycline. Oxygen was weaned down to baseline 4L via nasal cannula. He was started on BiPAP at night and a home non-invasive venitaltor was ordered. For COPD exacerbation, he was placed on a slow steroid taper. Due to sinus tachycardia, albuterol was switched to levalbuterol. He was found to be significantly anemic due to a combination of autoimmune hemolytic anemia (though with minimal hemolysis), iron deficiency, and anemia of chronic disease. He was transfused 2 units of packed red blood cells and given IV iron therapy. He was newly diagnosed with type 2 diabetes mellitus with an A1c of 6.8; this is possibly related to the large amount of steroids he has received. He was treated with correction dose insulin. He was also given Glucerna supplements for moderate protein/calorie malnutrtion. He was discharged to [facility] in [place] for short-term rehabilitation. Time Spent with Patient Time attestation: Total time spent providing and/or coordinating discharge services: 45 Discharge coordination time: Greater than 30 minutes Physical Exam Vital Signs: Vital Signs: Last Vital Signs Temp 97.6 F 12/05/20 07:55 Pulse 124 H 12/05/20 07:55 Resp 18 12/05/20 07:55 BP 105/65 12/05/20 07:55 Pulse Ox 92 12/05/20 07:55 Body Mass Index 17.2 Gen: chronically ill-appearing but in no acute distress; temporal wasting HEENT: sclera anicteric, moist mucus membranes Neck: supple Lungs: diminished breath sounds Heart: regular rate and rhythm, no murmurs Abd: soft, non-tender, non-distended Ext: no edema Skin: warm/well-perfused Neuro: alert and oriented x3, no focal findings Psych: appropriate affect DS: Data Data Completed and Pending Completed studies during hospitalization [Text1]: Laboratory Results WBC 20.3 X10*3/uL (4.8-10.8) H 12/04/20 06:16 RBC 4.01 X10*6/uL (4.60-5.80) L 12/04/20 06:16 Hgb 11.6 g/dl (14.0-18.0) L 12/04/20 06:16 Hct 36.8 % (42-52) L 12/04/20 06:16 MCV 91.8 fL (80-98) 12/04/20 06:16 MCH 28.9 pg (27.0-33.0) 12/04/20 06:16 MCHC 31.5 g/dl (31.0-36.0) 12/04/20 06:16 RDW 17.0 % (11.0-16.0) H 12/04/20 06:16 Plt Count 678 X10*3/uL (160-400) H 12/04/20 06:16 MPV 9.3 fL (9.4-12.4) L 12/04/20 06:16 Immature Gran % (Auto) 1.0 % (0.0-0.4) H 12/04/20 06:16 Neut % (Auto) 85.6 % (45-73) H 12/04/20 06:16 Lymph % (Auto) 5.0 % (20-40) L 12/04/20 06:16 Real % (Auto) 7.9 % (2-11) 12/04/20 06:16 Eos % (Auto) 0.4 % (0-4) 12/04/20 06:16 Baso % (Auto) 0.1 % (0-2) 12/04/20 06:16 Lymph # (Auto) 1.0 X10*3/uL (1.2-4.9) L 12/04/20 06:16 Real # (Auto) 1.6 X10*3/uL (0.1-1.2) H 12/04/20 06:16 Eos # (Auto) 0.1 X10*3/uL (0.0-0.4) 12/04/20 06:16 Baso # (Auto) 0.0 X10*3/uL (0.0-0.2) 12/04/20 06:16 Abs Immat Gran (auto) 0.20 X10*3/uL (0.00-0.03) H 12/04/20 06:16 Absolute Neuts (auto) 17.4 X10*3/uL (2.0-8.3) H 12/04/20 06:16 Absolute Nucleated RBC 0.000 X10*3/uL (0.0-0.012) 12/04/20 06:16 Nucleated RBC % (auto) 0.0 /100WBC (0.0-0.2) 12/04/20 06:16 Smear Tech's Comments VERIFIED 12/04/20 06:16 Absolute Retic 0.040 X10*6/uL (0.026-0.095) 12/02/20 06:09 Percent Retic 1.4 % (0.5-1.8) 12/02/20 06:09 Immature Retic Fraction 26.2 % (2.3-13.4) H 12/02/20 06:09 Retic Hgb Equivalent 24.2 pg (30.0-35.0) L 12/02/20 06:09 PT 13.5 SEC (10.8-13.0) H 11/29/20 11:24 INR 1.1 (0.9-1.1) 11/29/20 11:24 VBG pH 7.34 (7.32-7.43) 12/04/20 06:26 VBG pCO2 71 mmHg 12/04/20 06:26 VBG pO2 71 mmHg 12/04/20 06:26 VBG HCO3 39 mmol/L (22-26) H 12/04/20 06:26 VBG O2 Saturation 91.0 % 12/04/20 06:26 VBG Base Excess 10.6 mmol/L 12/04/20 06:26 Sodium 138 mmol/L (135-145) 12/04/20 06:16 Potassium 4.1 mmol/L (3.3-5.1) 12/04/20 06:16 Chloride 99 mmol/L (96-108) 12/04/20 06:16 Carbon Dioxide 34 mmol/L (22-29) H 12/04/20 06:16 Anion Gap 9 (12-20) L 12/04/20 06:16 BUN 17 mg/dL (9-16) H 12/04/20 06:16 Creatinine 0.61 mg/dL (0.5-1.4) 12/04/20 06:16 Estim Creat Clear Calc 76.4 12/04/20 06:16 Estimated GFR > 60 12/04/20 06:16 POC Glucose 227 mg/dL (60-115) H 12/05/20 10:57 Random Glucose 157 mg/dL (60-115) H D 12/04/20 06:16 Estimat Average Glucose 148 mg/dL 12/02/20 06:10 Hemoglobin A1c % 6.8 % 12/02/20 06:10 Lactic Acid 1.0 mmol/L (0.5-2.0) 11/29/20 05:59 Calcium 9.1 mg/dL (8.4-10.2) 12/04/20 06:16 Iron 19 mcg/dL (45-160) L 11/30/20 05:55 TIBC 206 mcg/dL (228-428) L 11/30/20 05:55 % Saturation 9 % (15-50) L 11/30/20 05:55 Unsat Iron Binding 187 ug/dL 11/30/20 05:55 Ferritin 592 ng/mL (20-250) H 11/30/20 05:55 Total Bilirubin 0.2 mg/dL (0.0-1.0) 12/01/20 06:17 Direct Bilirubin < 0.2 mg/dL (0.0-0.5) 12/01/20 06:17 AST 16 U/L (5-37) 12/01/20 06:17 ALT 19 U/L (0-40) 12/01/20 06:17 Alkaline Phosphatase 143 U/L (39-117) H 12/01/20 06:17 Lactate Dehydrogenase 134 U/L (118-273) 11/30/20 05:55 Total Protein 5.9 g/dL (6.5-8.0) L 12/01/20 06:17 Albumin 2.8 g/dL (3.5-5.0) L 12/01/20 06:17 Vitamin B12 1183 pg/mL (200-900) H 11/30/20 05:55 Folate 10.8 ng/mL (> or = 4.0) 11/30/20 05:55 Procalcitonin 0.05 ng/mL 12/01/20 06:17 Vancomycin Trough 5.1 mcg/mL (10.0-20.0) L 12/03/20 06:48 Random Vancomycin 4.0 mcg/mL (15-20) L 12/01/20 17:53 COVID-19 (LINDA) Negative (Negative) 12/04/20 12:35 COVID-19 Clin Com See Note 12/04/20 12:35 Ur L.pneumophila Ag Cancelled 12/01/20 13:46 Ur Strep pneumoniae Ag Not Detected (Not Detected) 12/01/20 13:46 Blood Type A Positive 11/30/20 10:36 Antibody Screen NEGATIVE 11/30/20 10:36 Direct Antiglob Test POSITIVE A 12/01/20 06:17 JUDY, Polyspecific POSITIVE A 12/01/20 06:17 Crossmatch See Detail 11/30/20 10:[address] 11/29/20 04:11 IMPRESSION: * Worsening bilateral dependent atelectatic changes in a new small right pleural effusion. * Stable extensive upper lung predominant pleural parenchymal scarring with large pneumatoceles, pulmonary fibrotic change, traction bronchiectasis and architectural distortion. * Triple vessel coronary calcifications. Chest CTA 12/01/20 16:45 IMPRESSION: 1. No evidence of acute pulmonary emboli. There are some finding seen in the right upper lobe that could represent old embolic disease with vascular occlusion. 2. No change in the severe pleural-parenchymal disease seen on the study 2 days ago VTE: negative Labs on day of discharge: Laboratory Results - last 24 hr 12/04/20 12/04/20 12/04/20 12:35 16:25 20:17 POC Glucose 273 H 150 H COVID-19 (LIDNA) Negative COVID-19 Clin Com See Note 12/05/20 12/05/20 07:16 10:57 POC Glucose 149 H 227 H COVID-19 (LINDA) COVID-19 Clin Com Discharge Plan Discharge Anticipated Discharge Date/Time: 12/05/20 10:39 Patient Disposition: Xfer SNF Discharge Diagnosis: COPD exacerbation, bronchiectasis, acute/chronic hypoxic/hypercapneic respiratory failure, autoimmune hemolytic anemia Referrals: [facility] [place] [Outside] - 1 Week Eliza Lorenzana NP [Nurse Practitioner] - 1 Week Mary Lizarraga MD [Physician] - 1 Month Cipriano Lara MD [Physician] - 2 Weeks Discharge Medications: New doxycycline hyclate 100 mg Tablet 100 mg PO Q12H Qty: 2 RF: 0 omeprazole 20 mg Capsule,Delayed Release(Dr/Ec) 20 mg PO DAILY Qty: 30 RF: 0 prednisone 10 mg tablet See Rx Instructions .ROUTE .COMPLEX Qty: 50 RF: 0 levalbuterol tartrate 45 mcg/actuation HFA aerosol inhaler 2 puff inhalation Q4H PRN (Reason: shortness of breath or wheezing) Qty: 15 RF: 0 ipratropium bromide 17 mcg/actuation HFA aerosol inhaler 2 puff inhalation Q6H PRN (Reason: shortness of breath or wheezing) Qty: 12.9 RF: 0 insulin lispro [Humalog U-100 Insulin] 100 unit/mL Solution 1 sliding scale dose subcut QIDACHS Qty: 10 RF: 0 Continued Incruse Ellipta 62.5 mcg/actuation Blister With Device 1 inh INHALATION DAILY RF: 0 valsartan 40 mg Tablet 40 mg PO DAILY RF: 0 Breo Ellipta 200-25 mcg/dose Blister With Device 1 inh INHALATION DAILY RF: 0 gabapentin 300 mg Capsule 300 mg PO TID RF: 0 hydroxyzine HCl 25 mg tablet 25 mg PO TID PRN (Reason: anxiety) RF: 0 atorvastatin 20 mg tablet 20 mg PO DAILY RF: 0 aspirin 81 mg tablet,delayed release (DR/EC) 81 mg PO DAILY RF: 0 montelukast 10 mg tablet 10 mg PO BEDTIME RF: 0 multivitamin Tablet 1 tab PO DAILY RF: 0 sennosides [senna] 8.6 mg tablet 1 - 2 tab PO BID PRN (Reason: Constipation) RF: 0 ketoconazole 2 % shampoo 1 appl topical 2XW RF: 0 ferrous sulfate 325 mg (65 mg iron) tablet 325 mg PO DAILY RF: 0 fluticasone propionate 50 mcg/actuation spray,suspension 2 spray intranasal DAILY PRN (Reason: Nasal Congestion) RF: 0 docusate sodium 100 mg capsule 100 mg PO BID RF: 0 Discontinued ipratropium-albuterol 0.5 mg-3 mg(2.5 mg base)/3 mL solution for nebulization 3 ml inhalation QID 30 Days Qty: 360 RF: 6 albuterol sulfate 90 mcg/actuation HFA aerosol inhaler 2 puff inhalation Q4-6H PRN (Reason: shortness of breath or wheezing) 30 Days Qty: 1 RF: 6 prednisone 10 mg tablet 10 mg PO DAILY 14 Days Qty: 14 RF: 1 Discharge Orders: Discharge Order (Routine); Ordered 12/05/20 Ordered By: Cora Etienne Diet: diabetic diet Activity on Discharge: As tolerated Stand Alone Forms: Patient Portal Discharge page Other Ambulatory Orders: Complete Blood Count Auto Diff (Routine) Timeframe: 1 Week Facility: [facility] - Location: Laboratory Ordered By: Cora Etienne Care Plan Goals: improved breathing avoidance of diabetic complications improved nutrition improved anemia Health Concerns: COPD, bronchiectasis, respiratory failure diabetes mellitus malnutrition autoimmune hemolytic anemia Plan of Treatment: take prednisone taper (30 mg daily x 1 week, then 20 mg daily x 1 week, then 10 mg daily; further tapering as per Pulmonology); change albuterol to levalbuterol; continue Breo; continue Incruse Ellipta; follow up with Pulmonology [Dr Cipriano Lara, [facility]], in 2 weeks; use BiPAP at night and when you get home, use Trilogy ventilator diabetic diet; correction-dose Humalog insulin take Glucerna 1 can twice daily take iron 1 tab daily; check CBC with differential in 1 week; follow up with Hematology [Dr Mary Lizarraga, [facility]] in 1 month Assessment: as above Patient Instructions: COPD (Chronic Obstructive Pulmonary Disease) (DC)
[2020-12-05 19:12] LABS: Haptoglobin 530 mg/dL (43-212)
[2020-12-06 08:47] LABS: Legionella Ag Urine Not Detected (Not Detected)
== END 2020-12-05 12:03 | disposition skilled nursing facility (03) | DRG 871 ==
LOC: HO.ED 06:04 → HO.EDOVER 18:37 → HO.IMC 19:35
PROVIDERS: Internal Medicine; Physician Assistant Medical; Admitting Provider Internal Medicine; Emergency Provider Student in an Organized Health Care Education/Training Program; Visit Provider Family Medicine
DX: A41.9 Sepsis, unspecified organism (principal); J18.9 Pneumonia, unspecified organism; J96.22 Acute and chronic respiratory failure with hypercapnia; J96.21 Acute and chronic respiratory failure with hypoxia; J44.0 Chronic obstructive pulmonary disease with (acute) lower respiratory infection; J44.1 Chronic obstructive pulmonary disease with (acute) exacerbation; E44.0 Moderate protein-calorie malnutrition; Z68.1 Body mass index [BMI] 19.9 or less, adult; J91.8 Pleural effusion in other conditions classified elsewhere; A31.0 Pulmonary mycobacterial infection; D59.10 Autoimmune hemolytic anemia, unspecified; D63.8 Anemia in other chronic diseases classified elsewhere; F41.9 Anxiety disorder, unspecified; F17.210 Nicotine dependence, cigarettes, uncomplicated; Z71.6 Tobacco abuse counseling; Z20.822 Contact with and (suspected) exposure to COVID-19; Z79.4 Long term (current) use of insulin; Z79.82 Long term (current) use of aspirin; Z79.899 Other long term (current) drug therapy
CPT/HCPCS: 36415; 71250; 71275; 80048; 80053; 80076; 80202; 82607; 82728; 82746; 82947; 83010; 83036; 83540; 83605; 83615; 84145; 85025; 85045; 85610; 86850; 86880; 86900; 86923; 87040; 87070; 87205; 87449; 87635; 87899; 93005; 94640; 96365; 96367; 96375; 97162; 99285; J1650; J2543; J2916; J2920; J2930; J3370; P9016; Q9967

== ENCOUNTER → 2020-12-17 13:58 | Outpatient (BNVA) | payer OTHER, SELFPAY | PROVIDERS: PCP Internal Medicine; Visit Provider Internal Medicine Pulmonary Disease | DX: J44.1 Chronic obstructive pulmonary disease with (acute) exacerbation (principal); Z99.81 Dependence on supplemental oxygen; Z87.891 Personal history of nicotine dependence | CPT/HCPCS: 99212 ==

== ENCOUNTER 2020-12-19 19:14 | Emergency (ER) | payer OTHER, SELFPAY ==
--- NOTE | ~2020-12-19 | XR_ITS ---
EXAMINATION: XR CHEST CLINICAL INFORMATION: Shortness of breath COMPARISON: 11/28/2020 TECHNIQUE: Frontal view of the chest was obtained. FINDINGS: Cardiac leads overlie the chest. The lungs are well expanded. Ill-defined densities are seen in the upper lungs bilaterally. This is similar to previous imaging and consistent with scarring and bullous changes. No new consolidation. No pleural effusion. No pneumothorax. The cardiac mediastinal silhouette is unchanged. Rightward deviation of the trachea is unchanged. XR/XR chest 1V IMPRESSION: Changes of the upper lungs. No acute pulmonary finding.
[2020-12-19 19:19] VITALS: BP 180/90; O2SAT 75
--- NOTE | 2020-12-19 19:20 | PC.NURSE ---
PT HAD LOW SPO2 AT HOME 75% ON 5LITERS, EMS PUT TO 15L NRB PATIENT O2 SAT INCREASED TO 99%.
[2020-12-19 19:21] VITALS: BP 118/75; PULSE 131; RESP 16; O2SAT 98; BMI 17.5
--- NOTE | 2020-12-19 19:27 | ED_ITS ---
HPI - General Adult General Chief complaint: General Medical Stated complaint: sob Time Seen by Provider: 12/19/20 19:27 Source: patient Mode of arrival: EMS Limitations: no limitations History of Present Illness HPI narrative: Patient with history of COPD SYED intolerant of treatments bronchiectasis with multiple exacerbation COPD on chronic prednisone and antibiotics treatment on home oxygen 3-4 L to maintain normal oxygen concentration just admitted and discharged on 12/05 to pulmonary rehab now back to home currently taking Levaquin and prednisone 50 mg daily comes here as while checking his pulse ox noticed his heart rate was 150. 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 Patient denies any dizziness syncope or passing out episode Related Data Home Medications Medication Instructions Recorded Confirmed aspirin 81 mg PO DAILY 06/01/20 11/29/20 atorvastatin 20 mg PO DAILY 06/01/20 11/29/20 montelukast 10 mg PO BEDTIME 06/01/20 11/29/20 ferrous sulfate 325 mg PO DAILY 08/05/20 11/29/20 fluticasone propionate 2 spray INTRANASAL DAILY PRN 08/05/20 11/29/20 ketoconazole 1 appl TOPICAL 2XW 08/05/20 11/29/20 multivitamin 1 tab PO DAILY 08/05/20 11/29/20 sennosides [senna] 1 - 2 tab PO BID PRN 08/05/20 11/29/20 Incruse Ellipta 1 inh INHALATION DAILY 09/03/20 11/29/20 Breo Ellipta 1 inh INHALATION DAILY 10/10/20 11/29/20 gabapentin 300 mg PO TID 10/10/20 11/29/20 valsartan 40 mg PO DAILY 10/10/20 11/29/20 hydroxyzine HCl 25 mg PO TID PRN 11/15/20 11/29/20 docusate sodium 100 mg PO BID 11/29/20 11/29/20 Previous Rx's Medication Instructions Recorded insulin lispro [Humalog U-100 1 sliding scale dose SUBCUT 12/05/20 Insulin] QIDACHS #10 ml ipratropium bromide 2 puff INHALATION Q6H PRN #12.9 g 12/05/20 levalbuterol tartrate 2 puff INHALATION Q4H PRN #15 g 12/05/20 omeprazole 20 mg PO DAILY #30 cap 12/05/20 prednisone See Rx Instructions .ROUTE 12/05/20 .COMPLEX #50 tab levofloxacin 250 mg tablet See Rx Instructions PO DAILY #30 12/17/20 tab Allergies Allergy/AdvReac Type Severity Reaction Status Date / Time morphine [MORPHINE] Allergy Mild VOMITING Verified 11/29/20 04:04 Review of Systems Review of Systems: Constitutional : No Weight loss, No Fever, No Chills ENT/Mouth : No sore throat, No Rhinorrhea Eyes: No Eye Pain, No Swelling Cardiovascular : No Chest Pain, ++ palpitations Respiratory :++ Cough, ++ Sputum, ++ shortness of breath Gastrointestinal : no Nausea, No Vomiting, No Diarrhea, No abdominal Pain, no black stools Genitourinary : No Dysuria, No Urinary Frequency Musculoskeletal : No joint pain, No Myalgias, No Joint Swelling Skin : No Skin Lesions, No rash Neuro : No Weakness, No Numbness, No Dizziness, No Headache Psych : No Anxiety/Panic, No Depression Heme/Lymph: No Bruising, No Lymphadenopathy Endocrine : No Polyuria, No Polydipsia All other systems reviewed and are negative [facility] Past Medical History Medical History Acute on chronic respiratory failure with hypoxia and hypercapnia AIHA (autoimmune hemolytic anemia) Anemia Anemia, chronic disease Asthma Bronchiectasis Chronic hypercapnic respiratory failure Cocaine abuse COPD (chronic obstructive pulmonary disease) COPD (chronic obstructive pulmonary disease) COPD exacerbation COPD exacerbation COVID-19 virus infection Hypoxia Iron deficiency anemia SYED (mycobacterium avium-intracellulare) Moderate protein-calorie malnutrition Mycobacteria, atypical Pleural effusion Pneumonia Pneumonia Pneumonia Protein-calorie malnutrition, moderate Respiratory failure with hypoxia and hypercapnia Sepsis Serratia marcescens infection Family History Family History Other Family history non-contributory HTN (hypertension) Social History Social History Household Members: Spouse Housing: House Alcohol intake: never Smoking Status: Former smoker Tobacco Type: Cigarette Packs Per Day: 2 Years Smoked: 50 Second Hand Smoke Exposure: No Use of substances other than those prescribed or required for medical reasons: No Substance Use Type: Crack/Cocaine Advance Directives: No Advance Directives Information Provided: Yes service: No Current occupational status: retired and disabled Physical Exam Vital Signs: Vital Signs: Last Vital Signs Temp 97.8 F 12/19/20 22:00 Pulse 120 H 12/19/20 23:13 Resp 15 12/19/20 22:00 BP 108/67 12/19/20 22:00 Pulse Ox 93 12/19/20 22:00 Body Mass Index 17.5 Appearance: Alert. Oriented X3. Mild respiratory distress on 3 L of oxygen via nasal cannula saturating 93% Eyes: PERRLA, No Nystagmus ENT: Pharynx normal. Oral Mucosa moist Neck: Normal inspection. Neck supple. CVS: Normal heart rate and rhythm. Pulses normal. Respiratory: Mild respiratory distress. Equal air entry bilateral, prolonged expiration rhonchi bilateral no rales Abdomen: Soft and nontender. Bowel sounds are present, no mass palpable, no CVA tenderness Skin: Skin warm and dry. Normal skin color. Normal skin turgor. Extremities: No lower extremity edema. No calf tenderness Neuro: Oriented X 3. No motor deficit. No sensory deficit.No cerebellar signs , cranial nerves II-XII intact Medical Decision Making MDM Narrative Medical decision making narrative: Patient's COPD bronchiectasis with sinus tachycardia asymptomatic. Happened after nebulizing treatment at home Will discharge patient home and advised to take Xopenex instead of albuterol Lab Data Lab results reviewed: Yes I reviewed the patient's lab results. Result diagrams: 12/19/20 19:43 12/19/20 19:43 Labs: Lab Results 12/19/20 12/19/20 12/19/20 Range/Units 19:43 19:43 19:43 WBC 23.1 H (4.8-10.8) X10*3/uL RBC 3.90 L (4.60-5.80) X10*6/uL Hgb 11.5 L (14.0-18.0) g/dl Hct 37.0 L (42-52) % MCV 94.9 (80-98) fL MCH 29.5 (27.0-33.0) pg MCHC 31.1 (31.0-36.0) g/dl RDW 17.3 H (11.0-16.0) % Plt Count 530 H (160-400) X10*3/uL MPV 9.0 L (9.4-12.4) fL Immature Gran % (Auto) 0.5 H (0.0-0.4) % Neut % (Auto) 87.4 H (45-73) % Lymph % (Auto) 4.9 L (20-40) % [place] % (Auto) 6.9 (2-11) % Eos % (Auto) 0.2 (0-4) % Baso % (Auto) 0.1 (0-2) % Lymph # (Auto) 1.1 L (1.2-4.9) X10*3/uL [place] # (Auto) 1.6 H (0.1-1.2) X10*3/uL Eos # (Auto) 0.0 (0.0-0.4) X10*3/uL Baso # (Auto) 0.0 (0.0-0.2) X10*3/uL Abs Immat Gran (auto) 0.12 H (0.00-0.03) X10*3/uL Absolute Neuts (auto) 20.2 H (2.0-8.3) X10*3/uL Absolute Nucleated RBC 0.000 (0.0-0.012) X10*3/uL Nucleated RBC % (auto) 0.0 (0.0-0.2) /100WBC Smear Tech's Comments VERIFIED PT 12.1 (10.8-13.0) SEC INR 1.0 (0.9-1.1) Sodium 138 (135-145) mmol/L Potassium 4.9 (3.3-5.1) mmol/L Chloride 87 L (96-108) mmol/L Carbon Dioxide 41 H* D (22-29) mmol/L Anion Gap 15 (12-20) BUN 13 (9-16) mg/dL Creatinine 0.61 (0.5-1.4) mg/dL Estim Creat Clear Calc 77.9 Estimated GFR > 60 Random Glucose 154 H (60-115) mg/dL Lactic Acid (0.5-2.0) mmol/L Calcium 9.2 (8.4-10.2) mg/dL Total Bilirubin 0.2 (0.0-1.0) mg/dL Direct Bilirubin < 0.2 (0.0-0.5) mg/dL AST 17 (5-37) U/L ALT 24 (0-40) U/L Alkaline Phosphatase 152 H (39-117) U/L Troponin I High Sens (<3.5-35.0) ng/L Total Protein 6.8 (6.5-8.0) g/dL Albumin 3.3 L (3.5-5.0) g/dL COVID-19 (LINDA) (Negative) COVID-19 Clin Com 12/19/20 12/19/20 12/19/20 Range/Units 19:43 19:43 19:43 WBC (4.8-10.8) X10*3/uL RBC (4.60-5.80) X10*6/uL Hgb (14.0-18.0) g/dl Hct (42-52) % MCV (80-98) fL MCH (27.0-33.0) pg MCHC (31.0-36.0) g/dl RDW (11.0-16.0) % Plt Count (160-400) X10*3/uL MPV (9.4-12.4) fL Immature Gran % (Auto) (0.0-0.4) % Neut % (Auto) (45-73) % Lymph % (Auto) (20-40) % [place] % (Auto) (2-11) % Eos % (Auto) (0-4) % Baso % (Auto) (0-2) % Lymph # (Auto) (1.2-4.9) X10*3/uL [place] # (Auto) (0.1-1.2) X10*3/uL Eos # (Auto) (0.0-0.4) X10*3/uL Baso # (Auto) (0.0-0.2) X10*3/uL Abs Immat Gran (auto) (0.00-0.03) X10*3/uL Absolute Neuts (auto) (2.0-8.3) X10*3/uL Absolute Nucleated RBC (0.0-0.012) X10*3/uL Nucleated RBC % (auto) (0.0-0.2) /100WBC Smear Tech's Comments PT (10.8-13.0) SEC INR (0.9-1.1) Sodium (135-145) mmol/L Potassium (3.3-5.1) mmol/L Chloride (96-108) mmol/L Carbon Dioxide (22-29) mmol/L Anion Gap (12-20) BUN (9-16) mg/dL Creatinine (0.5-1.4) mg/dL Estim Creat Clear Calc Estimated GFR Random Glucose (60-115) mg/dL Lactic Acid 1.2 (0.5-2.0) mmol/L Calcium (8.4-10.2) mg/dL Total Bilirubin (0.0-1.0) mg/dL Direct Bilirubin (0.0-0.5) mg/dL AST (5-37) U/L ALT (0-40) U/L Alkaline Phosphatase (39-117) U/L Troponin I High Sens < 3.5 (<3.5-35.0) ng/L Total Protein (6.5-8.0) g/dL Albumin (3.5-5.0) g/dL COVID-19 (LINDA) Negative (Negative) COVID-19 Clin Com See Note ECG Data Attestation: I personally reviewed and interpreted this ECG as follows: Interpretation: Sinus tachycardia with occasional PVCs unifocal heart rate 130 beats per minute left axis deviation no acute ST T wave changes no acute change from previous EKG is no acute ischemia Discharge Plan Discharge Clinical Impression: Supplemental oxygen dependent, Paroxysmal sinus tachycardia COPD (chronic obstructive pulmonary disease) Qualifiers: COPD type: chronic bronchitis Chronic bronchitis type: mucopurulent Qualified Code(s): J41.1 - Mucopurulent chronic bronchitis Bronchiectasis Qualifiers: Bronchiectasis type: with acute lower respiratory infection Qualified Code(s): J47.0 - Bronchiectasis with acute lower respiratory infection Patient Disposition: Home, Self-Care Instructions: Supraventricular Tachycardia (ED), COPD (Chronic Obstructive Pulmonary Disease) (ED) Additional Instructions: Continue medications as prescribed by your lung specialist. Continue to use inhaler and antibiotic as prescribed by lung specialist and follow with PCP Prescriptions: No Action Incruse Ellipta 62.5 mcg/actuation Blister With Device 1 inh INHALATION DAILY RF: 0 valsartan 40 mg Tablet 40 mg PO DAILY RF: 0 Breo Ellipta 200-25 mcg/dose Blister With Device 1 inh INHALATION DAILY RF: 0 gabapentin 300 mg Capsule 300 mg PO TID RF: 0 hydroxyzine HCl 25 mg tablet 25 mg PO TID PRN (Reason: anxiety) RF: 0 atorvastatin 20 mg tablet 20 mg PO DAILY RF: 0 aspirin 81 mg tablet,delayed release (DR/EC) 81 mg PO DAILY RF: 0 montelukast 10 mg tablet 10 mg PO BEDTIME RF: 0 multivitamin Tablet 1 tab PO DAILY RF: 0 sennosides [senna] 8.6 mg tablet 1 - 2 tab PO BID PRN (Reason: Constipation) RF: 0 ketoconazole 2 % shampoo 1 appl topical 2XW RF: 0 ferrous sulfate 325 mg (65 mg iron) tablet 325 mg PO DAILY RF: 0 fluticasone propionate 50 mcg/actuation spray,suspension 2 spray intranasal DAILY PRN (Reason: Nasal Congestion) RF: 0 docusate sodium 100 mg capsule 100 mg PO BID RF: 0 omeprazole 20 mg Capsule,Delayed Release(Dr/Ec) 20 mg PO DAILY Qty: 30 RF: 0 prednisone 10 mg tablet See Rx Instructions .ROUTE .COMPLEX Qty: 50 RF: 0 levalbuterol tartrate 45 mcg/actuation HFA aerosol inhaler 2 puff inhalation Q4H PRN (Reason: shortness of breath or wheezing) Qty: 15 RF: 0 ipratropium bromide 17 mcg/actuation HFA aerosol inhaler 2 puff inhalation Q6H PRN (Reason: shortness of breath or wheezing) Qty: 12.9 RF: 0 insulin lispro [Humalog U-100 Insulin] 100 unit/mL Solution 1 sliding scale dose subcut QIDACHS Qty: 10 RF: 0 levofloxacin 250 mg tablet See Rx Instructions PO DAILY Qty: 30 RF: 0 Interventions: ED Discharge Assessment Last Done: 12/19/20 23:37
--- NOTE | 2020-12-19 19:34 | ECG_ITS ---
Test Reason : SOB Blood Pressure : / mmHG Vent. Rate : 130 BPM Atrial Rate : 130 BPM P-R Int : 124 ms QRS Dur : 078 ms QT Int : 292 ms P-R-T Axes : 078 -41 068 degrees QTc Int : 429 ms Sinus tachycardia with occasional Premature ventricular complexes Right atrial enlargement Left axis deviation Abnormal ECG When compared with ECG of 28-NOV-2020 01:51, Premature ventricular complexes are now Present Referred By: Westley Kerns Electronically Signed By:TRINY HUBBARD MD
[2020-12-19 19:51] LABS: Basophils Percent Auto 0.1 % (0-2); Eosinophils Percent Auto 0.2 % (0-4); Hemoglobin 11.5 g/dl (14.0-18.0); Imm Gran Abs Auto 0.12 X10*3/uL (0.00-0.03); Imm Gran Pct Auto 0.5 % (0.0-0.4); Lymphocytes Absolute Auto 1.1 X10*3/uL (1.2-4.9); Lymphocytes Percent Auto 4.9 % (20-40); MANUAL DIFF FLAG SCAN; Mean Corpuscular HGB Conc 31.1 g/dl (31.0-36.0); Mean Corpuscular Hemoglobin 29.5 pg (27.0-33.0); Mean Corpuscular Volume 94.9 fL (80-98); Monocytes Absolute Auto 1.6 X10*3/uL (0.1-1.2); Monocytes Percent Auto 6.9 % (2-11); Neutrophils Absolute Auto 20.2 X10*3/uL (2.0-8.3); Neutrophils Percent Auto 87.4 % (45-73); Platelet Count 530 X10*3/uL (160-400); Red Cell Distribution Width 17.3 % (11.0-16.0); SCAN SMEAR FLAG 1; White Blood Count 23.1 X10*3/uL (4.8-10.8)
[2020-12-19 20:03] LABS: Prothrombin Time 12.1 SEC (10.8-13.0)
[2020-12-19 20:04] VITALS: BP 122/75; PULSE 131; RESP 22; TEMP 36.5; O2SAT 95
[2020-12-19 20:10] LABS: Lactic Acid 1.2 mmol/L (0.5-2.0)
[2020-12-19 20:12] LABS: COVID-19 Test Negative (Negative); IDNOW Serial# 08D9AD1C
[2020-12-19] MEDS: 0.9 % Sodium Chloride 1,000 ML 999 ML IVCONT (20:14)
[2020-12-19 20:17] LABS: SLIDE REVIEW VERIFIED
[2020-12-19 20:20] LABS: Troponin-I High Sensitivity < 3.5 ng/L (<3.5-35.0)
[2020-12-19 20:29] LABS: Alanine Aminotransferase 24 U/L (0-40); Albumin Level 3.3 g/dL (3.5-5.0); Alkaline Phosphatase 152 U/L (39-117); Anion Gap 15 (12-20); Aspartate Amino Transferase 17 U/L (5-37); Bilirubin Direct < 0.2 mg/dL (0.0-0.5); Bilirubin Total 0.2 mg/dL (0.0-1.0); Blood Urea Nitrogen 13 mg/dL (9-16); Calcium 9.2 mg/dL (8.4-10.2); Carbon Dioxide 41 mmol/L (22-29); Chloride 87 mmol/L (96-108); Creatinine Clr Calc Pharmacy 77.9; Estimated Glomerular Filt Rate > 60; Glucose Random 154 mg/dL (60-115); Potassium 4.9 mmol/L (3.3-5.1); Sodium 138 mmol/L (135-145); Total Protein 6.8 g/dL (6.5-8.0)
[2020-12-19 22:00] VITALS: BP 108/67; PULSE 117; RESP 15; TEMP 36.6; O2SAT 93
[2020-12-19] MEDS: traMADoL HCL 50 MG TABLET PO (23:05)
[2020-12-19 23:13] VITALS: PULSE 120; O2SAT 94
== END 2020-12-19 23:38 | disposition home or self-care (01) ==
PROVIDERS: Emergency Provider Internal Medicine
DX: J41.1 Mucopurulent chronic bronchitis (principal); J47.0 Bronchiectasis with acute lower respiratory infection; I47.9 Paroxysmal tachycardia, unspecified; R06.02 Shortness of breath; F17.210 Nicotine dependence, cigarettes, uncomplicated; Z71.6 Tobacco abuse counseling; Z99.81 Dependence on supplemental oxygen; Z20.822 Contact with and (suspected) exposure to COVID-19; Z79.899 Other long term (current) drug therapy
CPT/HCPCS: 36415; 71045; 80048; 80076; 83605; 84484; 85025; 85610; 87040; 87635; 93005; 94640; 96360; 99285

== ENCOUNTER 2020-12-24 10:06 | Inpatient (IN) | payer OTHER, SELFPAY ==
[2020-12-24] VITALS (13 sets, daily range): BP systolic 72–142; BP diastolic 44–74; PULSE 100–123; RESP 16–30; TEMP 36.6; O2SAT 89–100; BMI 17.2
--- NOTE | ~2020-12-24 | XR_ITS ---
EXAMINATION: XR CHEST CLINICAL INFORMATION: Chest pain and shortness of breath COMPARISON: Previous chest x-rays most recent 12/19/2020 TECHNIQUE: AP portable view of the chest was obtained. FINDINGS: The cardiac and mediastinal contours are stable. There is bilateral upper lobe volume loss. There is biapical pleural and parenchymal scarring. There is bronchiectasis and cystic or change or cavity formation seen in both upper lobes that appears unchanged. The the lower lungs are clear. There is no pleural effusion or pneumothorax. XR/XR chest 1V IMPRESSION: Chronic bilateral upper lobe volume loss, scarring, bronchiectasis and cystic or cavitary changes similar to previous exams. No evidence for acute disease in the chest.
--- NOTE | 2020-12-24 10:31 | ECG_ITS ---
Test Reason : SOB Blood Pressure : / mmHG Vent. Rate : 122 BPM Atrial Rate : 122 BPM P-R Int : 132 ms QRS Dur : 076 ms QT Int : 310 ms P-R-T Axes : 081 -51 067 degrees QTc Int : 441 ms Sinus tachycardia Right atrial enlargement Left axis deviation Abnormal ECG When compared with ECG of 19-DEC-2020 19:22, Premature ventricular complexes are no longer Present Referred By: Shirley Golden Electronically Signed By:CRISTINA SOLORZANO
[2020-12-24] MEDS: Albuterol/Iprat 2.5/0.5MG 3 ML AMPUL.NEB INHALE ×2 (10:50→12:35)
--- NOTE | 2020-12-24 11:11 | ED_ITS ---
HPI - SOB/Dyspnea General Chief Complaint: Back Pain/Injury Stated Complaint: SOB Time Seen by Provider: 12/24/20 10:13 Source: patient and EMS Mode of arrival: EMS History of Present Illness HPI Narrative: 65-year-old male with PMHx of COPD, SYED intolerant of treatment, bronchiectasis with multiple exacerbations, recent admission to [facility] for pneumonic exacerbation of underlying bronchiectasis, discharged to Pulmonary Rehab now back home,on baseline oxygen 3-4L NC, taking suppressive Levaquin therapy and chronic Prednisone, presenting to the ED complaining of worsening SOB and chest discomfort since this morning. Admits to productive cough. Denies fever, chills, abdominal pain, nausea/vomiting, LE edema, calf pa in, decreased p.o. intake MD elicited complaint: shortness of breath, cough and chest pain Related Data Home Medications Medication Instructions Recorded Confirmed aspirin 81 mg PO DAILY 06/01/20 11/29/20 atorvastatin 20 mg PO DAILY 06/01/20 11/29/20 montelukast 10 mg PO BEDTIME 06/01/20 11/29/20 ferrous sulfate 325 mg PO DAILY 08/05/20 11/29/20 fluticasone propionate 2 spray INTRANASAL DAILY PRN 08/05/20 11/29/20 ketoconazole 1 appl TOPICAL 2XW 08/05/20 11/29/20 multivitamin 1 tab PO DAILY 08/05/20 11/29/20 sennosides [senna] 1 - 2 tab PO BID PRN 08/05/20 11/29/20 Incruse Ellipta 1 inh INHALATION DAILY 09/03/20 11/29/20 Breo Ellipta 1 inh INHALATION DAILY 10/10/20 11/29/20 gabapentin 300 mg PO TID 10/10/20 11/29/20 valsartan 40 mg PO DAILY 10/10/20 11/29/20 hydroxyzine HCl 25 mg PO TID PRN 11/15/20 11/29/20 docusate sodium 100 mg PO BID 11/29/20 11/29/20 Previous Rx's Medication Instructions Recorded insulin lispro [Humalog U-100 1 sliding scale dose SUBCUT 12/05/20 Insulin] QIDACHS #10 ml ipratropium bromide 2 puff INHALATION Q6H PRN #12.9 g 12/05/20 levalbuterol tartrate 2 puff INHALATION Q4H PRN #15 g 12/05/20 omeprazole 20 mg PO DAILY #30 cap 12/05/20 prednisone See Rx Instructions .ROUTE 12/05/20 .COMPLEX #50 tab levofloxacin 250 mg tablet See Rx Instructions PO DAILY #30 12/17/20 tab Allergies Allergy/AdvReac Type Severity Reaction Status Date / Time morphine [MORPHINE] Allergy Mild VOMITING Verified 11/29/20 04:04 Review of Systems Review of Systems: Constitutional: No Fever, No Chills Cardiovascular: + Chest Pain, + SOB, No Dyspnea on Exertion, No Orthopnea, No Edema, + Palpitations Respiratory: + Cough, +o Sputum, + Wheezing Gastrointestinal: No Nausea, No Vomiting, No Diarrhea, No Constipation, No Abdominal pain Genitourinary: No Dysuria, No Hematuria, No Flank Pain Musculoskeletal: No joint pain, No Myalgias, No Joint Swelling Skin: No Skin Lesions, No rash Neuro: No Weakness, No Numbness, No Paresthesias, No Headache Yes all other systems are reviewed and are negative [facility] Past Medical History Attestation statement: The following information was validated with the patient. Medical History Acute on chronic respiratory failure with hypoxia and hypercapnia AIHA (autoimmune hemolytic anemia) Anemia Anemia, chronic disease Asthma Bronchiectasis Chronic hypercapnic respiratory failure Cocaine abuse COPD (chronic obstructive pulmonary disease) COPD (chronic obstructive pulmonary disease) COPD exacerbation COPD exacerbation COVID-19 virus infection Hypoxia Iron deficiency anemia SYED (mycobacterium avium-intracellulare) Moderate protein-calorie malnutrition Mycobacteria, atypical Pleural effusion Pneumonia Pneumonia Pneumonia Protein-calorie malnutrition, moderate Respiratory failure with hypoxia and hypercapnia Sepsis Serratia marcescens infection Family History Family History Other Family history non-contributory HTN (hypertension) Social History Social History Household Members: Spouse Housing: House Alcohol intake: never Smoking Status: Former smoker Tobacco Type: Cigarette Packs Per Day: 2 Years Smoked: 50 Second Hand Smoke Exposure: No Substance Use Type: Crack/Cocaine Advance Directives: No Advance Directives Information Provided: No service: No Current occupational status: retired and disabled Physical Exam Vital Signs: Vital Signs: Last Vital Signs Temp 98 F 12/24/20 10:15 Pulse 115 H 12/24/20 13:22 Resp 16 12/24/20 12:47 BP 142/64 H 12/24/20 13:07 Pulse Ox 89 L 12/24/20 13:07 Body Mass Index 17.2 Const: General: cooperative and ill appearing chronically Orientation/consciousness: patient oriented x3 Limitations: no limitations HENMT: Head: Yes normal to inspection Ears: hearing grossly normal bilaterally General nose exam: Normal external nose present Face and sinus: Yes normal facial exam Eyes: General: appearance normal, both eyes and all related structures EOM: EOMs intact bilaterally Neck: Neck: Yes normal visual inspection Chest: Chest palpation & inspection: normal inspection of the chest Resp: Effort & Inspection: normal respiratory effort Auscultation: wheezes scattered wheezes and throughout and diminished lung sounds diffuse Cardio: Rate: regular rate Heart sounds: S1 normal heart sound present and S2 normal heart sound present GI: Inspection: Yes normal to inspection Palpation (GI): Soft to palpation, nontender, no guarding and not rigid Skin: Rashes: no rashes Wounds: no wounds Neuro: General: patient oriented x3 and tone normal Extrem: General: Yes normal to inspection, Yes no pedal edema and Yes no calf tenderness Course Course Course Narrative: -1155--patient with notable tachycardia which appears chronic and likely contributing from albuterol nebs, now with hypotension > IVF and empiric antibiotics ordered. 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 XR chest 1V IMPRESSION: Chronic bilateral upper lobe volume loss, scarring, bronchiectasis and cystic or cavitary changes similar to previous exams. No evidence for acute disease in the chest -1232-- leukocytosis of 20 likely from chronic prednisone use. VBG showing mild retention with CO2 of 72, troponin negative -1309--Patients WOB increased, descending 88% on 4-5L NC will give additional 5 albuterol, if no improvement will initiate BiPAP -1330--patient improved after albuterol treatment, WOB at baseline >> will admit for further management. MDM - SOB/Dyspnea MDM Narrative Medical decision making narrative: 65-year-old male with PMHx of COPD, SYED intolerant of treatment, bronchiectasis with multiple exacerbations, recent admission to [facility] for pneumonic exacerbation of underlying bro nchiectasis, discharged to Pulmonary Rehab now back home,on baseline oxygen 3-4L NC, taking suppressive Levaquin therapy and chronic Prednisone, presenting to the ED complaining of worsening SOB and chest discomfort since this morning. Admits to productive cough. On exam initially tachycardic, sating 95% on 3L NC, coarse shallow breath sounds with expiratory wheeze, no LE edema. Concern for COPD exacerbation/bronchiectasis vs ACS. Lower concern for CHF/PE. R/o PNA Low concern for severe sepsis at this time symptoms likely from chronic disease, tachycardia likely from albuterol treatments, and patient is chronically tachycardic per chart review Plan: EKG, labs, CXR, Solu-Medrol, albuterol, magnesium, reassess Medical Records Attestation: I reviewed the patient's medical records. Lab Data Attestation: I reviewed the patient's lab results. Result diagrams: 12/24/20 11:19 12/24/20 11:09 Labs: Lab Results 12/24/20 12/24/20 12/24/20 Range/Units 11:09 11:09 11:09 WBC (4.8-10.8) X10*3/uL RBC (4.60-5.80) X10*6/uL Hgb (14.0-18.0) g/dl Hct (42-52) % MCV (80-98) fL MCH (27.0-33.0) pg MCHC (31.0-36.0) g/dl RDW (11.0-16.0) % Plt Count (160-400) X10*3/uL MPV (9.4-12.4) fL Immature Gran % (Auto) (0.0-0.4) % Neut % (Auto) (45-73) % Lymph % (Auto) (20-40) % [place] % (Auto) (2-11) % Eos % (Auto) (0-4) % Baso % (Auto) (0-2) % Lymph # (Auto) (1.2-4.9) X10*3/uL [place] # (Auto) (0.1-1.2) X10*3/uL Eos # (Auto) (0.0-0.4) X10*3/uL Baso # (Auto) (0.0-0.2) X10*3/uL Abs Immat Gran (auto) (0.00-0.03) X10*3/uL Absolute Neuts (auto) (2.0-8.3) X10*3/uL Absolute Nucleated RBC (0.0-0.012) X10*3/uL Nucleated RBC % (auto) (0.0-0.2) /100WBC Smear Tech's Comments PT 12.6 (10.8-13.0) SEC INR 1.1 (0.9-1.1) APTT (24.1-38.0) SEC VBG pH (7.32-7.43) VBG pCO2 mmHg VBG pO2 mmHg VBG HCO3 (22-26) mmol/L VBG O2 Saturation VBG Base Excess mmol/L Sodium 137 (135-145) mmol/L Potassium 4.9 (3.3-5.1) mmol/L Chloride 88 L (96-108) mmol/L Carbon Dioxide 40 H* (22-29) mmol/L Anion Gap 14 (12-20) BUN 13 (9-16) mg/dL Creatinine 0.60 (0.5-1.4) mg/dL Estim Creat Clear Calc 77.6 Estimated GFR > 60 Random Glucose 182 H (60-115) mg/dL Lactic Acid (0.5-2.0) mmol/L Calcium 9.0 (8.4-10.2) mg/dL Magnesium 2.0 (1.6-2.6) mg/dL Total Bilirubin 0.5 (0.0-1.0) mg/dL Direct Bilirubin 0.2 (0.0-0.5) mg/dL AST 20 (5-37) U/L ALT 19 (0-40) U/L Alkaline Phosphatase 166 H (39-117) U/L Troponin I High Sens < 3.5 (<3.5-35.0) ng/L B-Natriuretic Peptide 20 (<100) pg/mL Total Protein 7.1 (6.5-8.0) g/dL Albumin 3.4 L (3.5-5.0) g/dL 12/24/20 12/24/20 12/24/20 Range/Units 11:09 11:09 11:19 WBC 20.0 H (4.8-10.8) X10*3/uL RBC 4.10 L (4.60-5.80) X10*6/uL Hgb 11.7 L (14.0-18.0) g/dl Hct 39.2 L (42-52) % MCV 95.6 (80-98) fL MCH 28.5 (27.0-33.0) pg MCHC 29.8 L (31.0-36.0) g/dl RDW 17.3 H (11.0-16.0) % Plt Count 475 H (160-400) X10*3/uL MPV 9.2 L (9.4-12.4) fL Immature Gran % (Auto) 0.7 H (0.0-0.4) % Neut % (Auto) 90.2 H (45-73) % Lymph % (Auto) 3.7 L (20-40) % [place] % (Auto) 4.7 (2-11) % Eos % (Auto) 0.4 (0-4) % Baso % (Auto) 0.3 (0-2) % Lymph # (Auto) 0.7 L (1.2-4.9) X10*3/uL [place] # (Auto) 0.9 (0.1-1.2) X10*3/uL Eos # (Auto) 0.1 (0.0-0.4) X10*3/uL Baso # (Auto) 0.1 (0.0-0.2) X10*3/uL Abs Immat Gran (auto) 0.14 H (0.00-0.03) X10*3/uL Absolute Neuts (auto) 18.1 H (2.0-8.3) X10*3/uL Absolute Nucleated RBC 0.000 (0.0-0.012) X10*3/uL Nucleated RBC % (auto) 0.0 (0.0-0.2) /100WBC Smear Tech's Comments VERIFIED PT (10.8-13.0) SEC INR (0.9-1.1) APTT 34.1 (24.1-38.0) SEC VBG pH (7.32-7.43) VBG pCO2 mmHg VBG pO2 mmHg VBG HCO3 (22-26) mmol/L VBG O2 Saturation VBG Base Excess mmol/L Sodium (135-145) mmol/L Potassium (3.3-5.1) mmol/L Chloride (96-108) mmol/L Carbon Dioxide (22-29) mmol/L Anion Gap (12-20) BUN (9-16) mg/dL Creatinine (0.5-1.4) mg/dL Estim Creat Clear Calc Estimated GFR Random Glucose (60-115) mg/dL Lactic Acid 1.4 (0.5-2.0) mmol/L Calcium (8.4-10.2) mg/dL Magnesium (1.6-2.6) mg/dL Total Bilirubin (0.0-1.0) mg/dL Direct Bilirubin (0.0-0.5) mg/dL AST (5-37) U/L ALT (0-40) U/L Alkaline Phosphatase (39-117) U/L Troponin I High Sens (<3.5-35.0) ng/L B-Natriuretic Peptide (<100) pg/mL Total Protein (6.5-8.0) g/dL Albumin (3.5-5.0) g/dL 12/24/20 Range/Units 11:46 WBC (4.8-10.8) X10*3/uL RBC (4.60-5.80) X10*6/uL Hgb (14.0-18.0) g/dl Hct (42-52) % MCV (80-98) fL MCH (27.0-33.0) pg MCHC (31.0-36.0) g/dl RDW (11.0-16.0) % Plt Count (160-400) X10*3/uL MPV (9.4-12.4) fL Immature Gran % (Auto) (0.0-0.4) % Neut % (Auto) (45-73) % Lymph % (Auto) (20-40) % [place] % (Auto) (2-11) % Eos % (Auto) (0-4) % Baso % (Auto) (0-2) % Lymph # (Auto) (1.2-4.9) X10*3/uL [place] # (Auto) (0.1-1.2) X10*3/uL Eos # (Auto) (0.0-0.4) X10*3/uL Baso # (Auto) (0.0-0.2) X10*3/uL Abs Immat Gran (auto) (0.00-0.03) X10*3/uL Absolute Neuts (auto) (2.0-8.3) X10*3/uL Absolute Nucleated RBC (0.0-0.012) X10*3/uL Nucleated RBC % (auto) (0.0-0.2) /100WBC Smear Tech's Comments PT (10.8-13.0) SEC INR (0.9-1.1) APTT (24.1-38.0) SEC VBG pH 7.42 (7.32-7.43) VBG pCO2 72 mmHg VBG pO2 112 mmHg VBG HCO3 47 H (22-26) mmol/L VBG O2 Saturation TNP VBG Base Excess 19.3 mmol/L Sodium (135-145) mmol/L Potassium (3.3-5.1) mmol/L Chloride (96-108) mmol/L Carbon Dioxide (22-29) mmol/L Anion Gap (12-20) BUN (9-16) mg/dL Creatinine (0.5-1.4) mg/dL Estim Creat Clear Calc Estimated GFR Random Glucose (60-115) mg/dL Lactic Acid (0.5-2.0) mmol/L Calcium (8.4-10.2) mg/dL Magnesium (1.6-2.6) mg/dL Total Bilirubin (0.0-1.0) mg/dL Direct Bilirubin (0.0-0.5) mg/dL AST (5-37) U/L ALT (0-40) U/L Alkaline Phosphatase (39-117) U/L Troponin I High Sens (<3.5-35.0) ng/L B-Natriuretic Peptide (<100) pg/mL Total Protein (6.5-8.0) g/dL Albumin (3.5-5.0) g/dL ECG Data Attestation: I personally reviewed and interpreted this ECG as follows: ECG interpretation date: 12/24/20 ECG interpretation time: 10:47 Interpretation: EKG sinus tachycardia with a rate of 122, artifact present, no STEMI Discharge Plan Discharge Clinical Impression: COPD (chronic obstructive pulmonary disease) Patient Disposition: Admitted As Inpatient Prescriptions: No Action Incruse Ellipta 62.5 mcg/actuation Blister With Device 1 inh INHALATION DAILY RF: 0 valsartan 40 mg Tablet 40 mg PO DAILY RF: 0 Breo Ellipta 200-25 mcg/dose Blister With Device 1 inh INHALATION DAILY RF: 0 gabapentin 300 mg Capsule 300 mg PO TID RF: 0 hydroxyzine HCl 25 mg tablet 25 mg PO TID PRN (Reason: anxiety) RF: 0 atorvastatin 20 mg tablet 20 mg PO DAILY RF: 0 aspirin 81 mg tablet,delayed release (DR/EC) 81 mg PO DAILY RF: 0 montelukast 10 mg tablet 10 mg PO BEDTIME RF: 0 multivitamin Tablet 1 tab PO DAILY RF: 0 sennosides [senna] 8.6 mg tablet 1 - 2 tab PO BID PRN (Reason: Constipation) RF: 0 ketoconazole 2 % shampoo 1 appl topical 2XW RF: 0 ferrous sulfate 325 mg (65 mg iron) tablet 325 mg PO DAILY RF: 0 fluticasone propionate 50 mcg/actuation spray,suspension 2 spray intranasal DAILY PRN (Reason: Nasal Congestion) RF: 0 docusate sodium 100 mg capsule 100 mg PO BID RF: 0 omeprazole 20 mg Capsule,Delayed Release(Dr/Ec) 20 mg PO DAILY Qty: 30 RF: 0 prednisone 10 mg tablet See Rx Instructions .ROUTE .COMPLEX Qty: 50 RF: 0 levalbuterol tartrate 45 mcg/actuation HFA aerosol inhaler 2 puff inhalation Q4H PRN (Reason: shortness of breath or wheezing) Qty: 15 RF: 0 ipratropium bromide 17 mcg/actuation HFA aerosol inhaler 2 puff inhalation Q6H PRN (Reason: shortness of breath or wheezing) Qty: 12.9 RF: 0 insulin lispro [Humalog U-100 Insulin] 100 unit/mL Solution 1 sliding scale dose subcut QIDACHS Qty: 10 RF: 0 levofloxacin 250 mg tablet See Rx Instructions PO DAILY Qty: 30 RF: 0
[2020-12-24] MEDS: methylPREDNISolone Sod Succ 125 MG/2 ML VIAL IVPUSH (11:22)
[2020-12-24] MEDS: Magnesium Sulfate/H2O 2 GM/50 ML PIGGYBACK IV (11:22)
[2020-12-24 11:33] LABS: Basophils Absolute Auto 0.1 X10*3/uL (0.0-0.2); Basophils Percent Auto 0.3 % (0-2); Eosinophils Absolute Auto 0.1 X10*3/uL (0.0-0.4); Eosinophils Percent Auto 0.4 % (0-4); Hematocrit 39.2 % (42-52); Hemoglobin 11.7 g/dl (14.0-18.0); Imm Gran Abs Auto 0.14 X10*3/uL (0.00-0.03); Imm Gran Pct Auto 0.7 % (0.0-0.4); Lymphocytes Absolute Auto 0.7 X10*3/uL (1.2-4.9); Lymphocytes Percent Auto 3.7 % (20-40); MANUAL DIFF FLAG SCAN; Mean Corpuscular HGB Conc 29.8 g/dl (31.0-36.0); Mean Corpuscular Hemoglobin 28.5 pg (27.0-33.0); Mean Corpuscular Volume 95.6 fL (80-98); Mean Platelet Volume 9.2 fL (9.4-12.4); Monocytes Absolute Auto 0.9 X10*3/uL (0.1-1.2); Monocytes Percent Auto 4.7 % (2-11); Neutrophils Absolute Auto 18.1 X10*3/uL (2.0-8.3); Neutrophils Percent Auto 90.2 % (45-73); Platelet Count 475 X10*3/uL (160-400); Red Cell Distribution Width 17.3 % (11.0-16.0); SCAN SMEAR FLAG 1
[2020-12-24 11:39] LABS: INTERNATIONAL NORM RATIO 1.1 (0.9-1.1); Prothrombin Time 12.6 SEC (10.8-13.0)
[2020-12-24] MEDS: 0.9 % Sodium Chloride 1,000 ML 999 ML IVCONT (11:39)
[2020-12-24 11:42] LABS: Partial Thromboplastin Time 34.1 SEC (24.1-38.0)
--- NOTE | 2020-12-24 11:50 | PC.NURSE ---
SHANNEN RIVERA NOTIFIED OF PTS SUSTAINED HYPOTENSION SBP IN 70S. ASYMPTOMATIC. IVF HUNG. #20 PLACED IN R HAND. PT HISTORICALLY HAS CHRONICALLY LOW BP, AVG SBP IN 90S.
[2020-12-24 11:52] LABS: Venous Blood Gas Refer to POC result
[2020-12-24 11:52] LABS: VBG Base Excess 19.3 mmol/L; VBG HCO3 47 mmol/L (22-26); VBG pCO2 72 mmHg; VBG pH 7.42 (7.32-7.43); VBG pO2 112 mmHg
[2020-12-24 11:53] LABS: SLIDE REVIEW VERIFIED
[2020-12-24 11:54] LABS: Lactic Acid 1.4 mmol/L (0.5-2.0)
[2020-12-24 12:03] LABS: B Type Natriuretic Peptide 20 pg/mL (<100); Troponin-I High Sensitivity < 3.5 ng/L (<3.5-35.0)
[2020-12-24] MEDS: cefTRIAXone sodium 1 GM in 0.9 % Sodium Chloride 50 ML IV (12:14)
[2020-12-24] MEDS: 0.9 % Sodium Chloride 500 ML IV (12:14)
[2020-12-24 12:18] LABS: Alanine Aminotransferase 19 U/L (0-40); Albumin Level 3.4 g/dL (3.5-5.0); Alkaline Phosphatase 166 U/L (39-117); Anion Gap 14 (12-20); Aspartate Amino Transferase 20 U/L (5-37); Bilirubin Direct 0.2 mg/dL (0.0-0.5); Bilirubin Total 0.5 mg/dL (0.0-1.0); Blood Urea Nitrogen 13 mg/dL (9-16); Carbon Dioxide 40 mmol/L (22-29); Chloride 88 mmol/L (96-108); Creatinine Clr Calc Pharmacy 77.6; Estimated Glomerular Filt Rate > 60; Glucose Random 182 mg/dL (60-115); Potassium 4.9 mmol/L (3.3-5.1); Sodium 137 mmol/L (135-145); Total Protein 7.1 g/dL (6.5-8.0)
[2020-12-24] MEDS: Albuterol Sulfate (0.083%) 2.5 MG/3 ML VIAL.NEB 5 MG INHALE (13:21)
--- NOTE | 2020-12-24 13:28 | PC.NURSE ---
winston PISANO daughter [facility] [phone]
[2020-12-24 14:40] LABS: Influenza A PCR NEGATIVE (Negative); Influenza B PCR NEGATIVE (Negative); Resp Syncy Virus RNA Qual PCR NEGATIVE (Negative); SARS COV2 PCR INHOUSE NEGATIVE (Negative)
--- NOTE | 2020-12-24 15:06 | PM.IMHP ---
History of Present Illness Date of Service: 12/24/20 <Laurie Sosa NP - Last Filed: 12/24/20 15:50> Chief Complaint: Shortness of breath <Laurie Sosa NP - Last Filed: 12/24/20 15:50> 65-year-old Syriac-speaking male that is well-known to the hospitalist service presents with worsening shortness of breath over the last 24-48 hours. He has a history of bronchiectasis, chronic lung disease, SYED and has had multiple admissions for exacerbations. his last admission to [facility] was in November 2020. At that time he was treated for acute, chronic, hypoxic hypercapnic respiratory failure due to COPD exacerbation and sepsis secondary to pneumonia. He was started on BiPAP and a home noninvasive ventilator was ordered. Is also found to be quite anemic and was transfused 2 units of packed red blood cells and given IV iron. And at that time discharged to [facility] for short-term rehabilitation. He reports that he has been unable to use the home mechanical ventilation device because he feels like he is suffocating from it. He was seen by his hot punch press operator on December 17. He was continued on his albuterol and Breo. During that appointment he was treated with 7 day course Levaquin for SYED bronchiectases exacerbation. He was to continues oxygen supplementation and maintain oxygen saturation of 88-93%. In the ED, his oxygen saturation did go down to 89%. He was placed on 5 L of oxygen with saturation staying around 90%. His VBG looks similar to previous with pCO2 of 72, PO2 112, HC03 47, chest x-ray showing chronic bilateral upper lobe volume loss, scarring, bronchiectases and cavitary changes similar to previous exams. his blood pressure was also initially along with lowest reading of 72/44 however this did improve to 142/64 , he remained tachycardic likely related to updraft treatments. He was placed on BiPAP while in the ER and will receive for short time. He received IV magnesium, DuoNeb, Solu-Medrol, Rocephin, Pepcid. To be admitted for further management treatment of acute on chronic COPD exacerbation. <Laurie Sosa NP - Last Filed: 12/24/20 15:50> Review of Systems Review of Systems: Denies any recent fever chills or decrease in appetite respiratory see HPI cardiovascular denies chest pain gastrointestinal denies any dysphagia abdominal pain nausea vomiting or diarrhea genitourinary denies any dysuria frequency or hematuria musculoskeletal denies any joint pain or swelling neuropsych denies any weakness or seizures all other systems reviewed are negative <Laurie Sosa NP - Last Filed: 12/24/20 15:50> [facility] Medical History: Medical History (Updated 12/24/20 @ 15:21 by Laurie Sosa NP) AIHA (autoimmune hemolytic anemia) Anemia Asthma Bronchiectasis Chronic hypercapnic respiratory failure Cocaine abuse COPD (chronic obstructive pulmonary disease) COVID-19 virus infection SYED (mycobacterium avium-intracellulare) Moderate protein-calorie malnutrition Pleural effusion Serratia marcescens infection <Laurie Sosa NP - Last Filed: 12/24/20 15:50> Family History: Family History Other Family history non-contributory HTN (hypertension) <Laurie Sosa NP - Last Filed: 12/24/20 15:50> Social History: Social History Household Members: Spouse Housing: House Alcohol intake: never Smoking Status: Never smoker Tobacco Type: Cigarette Packs Per Day: 2 Years Smoked: 50 Second Hand Smoke Exposure: No Use of substances other than those prescribed or required for medical reasons: No Substance Use Type: Crack/Cocaine Advance Directives: No Advance Directives Information Provided: No service: No Current occupational status: retired and disabled <Laurie Sosa NP - Last Filed: 12/24/20 15:50> Meds Allergies/Adverse reactions: Allergies Allergy/AdvReac Type Severity Reaction Status Date / Time morphine [MORPHINE] Allergy Mild VOMITING Verified 11/29/20 04:04 <Laurie Sosa NP - Last Filed: 12/24/20 15:50> Active Medications: Current Medications Generic Name Dose Route Start Last Admin Trade Name Freq PRN Reason Stop Dose Admin Pharmacy Consult 1 each 12/24/20 13:29 Consult Rx Perform Med Rec MISCELLANE ONCE PRN Consult order <Laurie Sosa NP - Last Filed: 12/24/20 15:50> Home medications: Home Medications Medication Instructions Recorded Confirmed Last Taken Type aspirin 81 mg PO DAILY 06/01/20 12/24/20 Unknown History atorvastatin 20 mg PO DAILY 06/01/20 12/24/20 Unknown History montelukast 10 mg PO BEDTIME 06/01/20 12/24/20 Unknown History ferrous sulfate 325 mg PO DAILY 08/05/20 12/24/20 Unknown History fluticasone propionate 2 spray INTRANASAL DAILY PRN 08/05/20 12/24/20 Unknown History ketoconazole 1 appl TOPICAL 2XW 08/05/20 12/24/20 Unknown History multivitamin 1 tab PO DAILY 08/05/20 12/24/20 Unknown History sennosides [senna] 1 - 2 tab PO BID PRN 08/05/20 12/24/20 Unknown History Incruse Ellipta 1 inh INHALATION DAILY 09/03/20 12/24/20 Unknown History Breo Ellipta 1 inh INHALATION DAILY 10/10/20 12/24/20 Unknown History gabapentin 300 mg PO TID 10/10/20 12/24/20 Unknown History valsartan 20 mg PO DAILY 10/10/20 12/24/20 Unknown History docusate sodium 100 mg PO BID 11/29/20 12/24/20 Unknown History albuterol sulfate 2 puff PO Q4-6H PRN 12/24/20 12/24/20 Unknown History ipratropium-albuterol 1 amp INHALATION QID 12/24/20 12/24/20 Unknown History <Laurie Sosa NP - Last Filed: 12/24/20 15:50> Physical Exam Vital Signs and Narrative: Vital Signs: Last Vital Signs Temp 98 F 12/24/20 10:15 Pulse 115 H 12/24/20 13:22 Resp 16 12/24/20 12:47 BP 142/64 H 12/24/20 13:07 Pulse Ox 89 L 12/24/20 13:07 Body Mass Index 17.2 <Laurie Sosa NP - Last Filed: 12/24/20 15:50> frail and thin head is normocephalic atraumatic eyes pupils are PERRLA sclera is anicteric mouth throat mucous membranes are intact and moist neck is supple no lymphadenopathy, no JVD noted lung completely diminished at the bases, moving some air to the top lobes, uses some accessory muscles heart regular rate rhythm, clear S1, S2 positive bowel sounds, abdomen is soft, nontender neuro patient is alert x3, no focal deficits <Laurie Sosa, ENGINEERING EXECUTIVE - Last Filed: 12/24/20 15:50> Results Labs CBC and Chem 7: : 12/24/20 11:19 12/24/20 11:09 <Laurie Sosa ENGINEERING EXECUTIVE - Last Filed: 12/24/20 15:50> Labs: Laboratory Results - last 24 hr 12/24/20 12/24/20 12/24/20 11:09 11:09 11:09 MCV MCH MCHC RDW Plt Count MPV Immature Gran % (Auto) Neut % (Auto) Lymph % (Auto) Osborne % (Auto) Eos % (Auto) Baso % (Auto) Lymph # (Auto) Osborne # (Auto) Eos # (Auto) Baso # (Auto) Abs Immat Gran (auto) Absolute Neuts (auto) Absolute Nucleated RBC Nucleated RBC % (auto) Smear Tech's Comments PT 12.6 INR 1.1 APTT VBG pH VBG pCO2 VBG pO2 VBG HCO3 VBG O2 Saturation VBG Base Excess Anion Gap 14 Estim Creat Clear Calc 77.6 Estimated GFR > 60 Random Glucose 182 H Lactic Acid Calcium 9.0 Magnesium 2.0 Total Bilirubin 0.5 Direct Bilirubin 0.2 AST 20 ALT 19 Alkaline Phosphatase 166 H Troponin I High Sens < 3.5 B-Natriuretic Peptide 20 Total Protein 7.1 Albumin 3.4 L 12/24/20 12/24/20 12/24/20 11:09 11:09 11:19 MCV 95.6 MCH 28.5 MCHC 29.8 L RDW 17.3 H Plt Count 475 H MPV 9.2 L Immature Gran % (Auto) 0.7 H Neut % (Auto) 90.2 H Lymph % (Auto) 3.7 L Osborne % (Auto) 4.7 Eos % (Auto) 0.4 Baso % (Auto) 0.3 Lymph # (Auto) 0.7 L Osborne # (Auto) 0.9 Eos # (Auto) 0.1 Baso # (Auto) 0.1 Abs Immat Gran (auto) 0.14 H Absolute Neuts (auto) 18.1 H Absolute Nucleated RBC 0.000 Nucleated RBC % (auto) 0.0 Smear Tech's Comments VERIFIED PT INR APTT 34.1 VBG pH VBG pCO2 VBG pO2 VBG HCO3 VBG O2 Saturation VBG Base Excess Anion Gap Estim Creat Clear Calc Estimated GFR Random Glucose Lactic Acid 1.4 Calcium Magnesium Total Bilirubin Direct Bilirubin AST ALT Alkaline Phosphatase Troponin I High Sens B-Natriuretic Peptide Total Protein Albumin 12/24/20 11:46 MCV MCH MCHC RDW Plt Count MPV Immature Gran % (Auto) Neut % (Auto) Lymph % (Auto) Osborne % (Auto) Eos % (Auto) Baso % (Auto) Lymph # (Auto) Osborne # (Auto) Eos # (Auto) Baso # (Auto) Abs Immat Gran (auto) Absolute Neuts (auto) Absolute Nucleated RBC Nucleated RBC % (auto) Smear Tech's Comments PT INR APTT VBG pH 7.42 VBG pCO2 72 VBG pO2 112 VBG HCO3 47 H VBG O2 Saturation TNP VBG Base Excess 19.3 Anion Gap Estim Creat Clear Calc Estimated GFR Random Glucose Lactic Acid Calcium Magnesium Total Bilirubin Direct Bilirubin AST ALT Alkaline Phosphatase Troponin I High Sens B-Natriuretic Peptide Total Protein Albumin <Laurie Sosa NP - Last Filed: 12/24/20 15:50> Imaging Radiologist's Impressions: Impressions Chest X-Ray 12/24/20 10:31 IMPRESSION: Chronic bilateral upper lobe volume loss, scarring, bronchiectasis and cystic or cavitary changes similar to previous exams. No evidence for acute disease in the chest. <Laurie Sosa NP - Last Filed: 12/24/20 15:50> Assessment and Plan (1) Acute and chronic respiratory failure: Status: Acute <Laurie Sosa NP - Last Filed: 12/24/20 15:50> 65-year-old male history of COPD, bronchiectases, chronic SYED infection with multiple hospital visits for exacerbation. He also follows closely with [facility] [place]. He presents with similar symptoms of shortness of breath. He was supposed to be using a noninvasive mechanical ventilator, stated that he stopped using it because he felt suffocated. Now he reports with exacerbation. Acute on chronic hypoxic hypercapnic respiratory failure, secondary to COPD exacerbation. VBG showed CO2 72, chronic - placed on BiPAP in the ER, will need BiPAP at night. - pulmonology consultation - steroids, levalbuterol due to tachycardia - continue oxygen titrate down as tolerated - due to his history of bronchiectasis will give Rocephin for now, on levaquin and prednisone at home empirically. Hypotension. Asymptomatic. Blood pressure improved with some IV fluids. -monitor blood pressure closely. -hold valsartan for now. Diabetes mellitus. -sliding scale Iron deficiency anemia. Signs of bleeding. -follow CBC. Leukocytosis. Chronic. Likely related to chronic steroid use. Protein calorie malnutrition. BMI 17.2 - Glucerna DVT prophylaxis with heparin Attending: Dr. Moses <Laurie Sosa NP - Last Filed: 12/24/20 15:50> (2) Acute on chronic respiratory failure with hypoxia and hypercapnia: Status: Acute <Laurie Sosa NP - Last Filed: 12/24/20 15:50> Attending Attestation: Patient seen and examined independently and I was present during paul portion of E/M service. Agree with Toro Sosa NP's history, physical, assessment, and plan. 65 yo M with COPD/Chronic SYED infection - failed multiple drug regimes, COVID earlier this [facility] with [facility] for [place] failure / exacerbations of his chronic lung infection. He was admitted from 11/29/2020 to 12/05/2020 and was dishcarged to rehab with the plan to get him a non-invasive respiratory. Despite his bedside RN translating, it is difficult to say if the patient has actually been using this. He was in the ED on 12/19/2020 and now presents again with respiratory complaints. He required rescue bipap in the ED. I saw him around [phone] and took him off his BIPAP and placed him on 4-5L by NC which he is tolerating. Will be admitted for a flare of his chronic respiratory infection / failure. Family to bring in his non-invasive ventilatory from home if possible, otherwise will use BIPAP here. <Jitendra Moses MD - Last Filed: 12/24/20 17:01>
--- NOTE | 2020-12-24 16:02 | PC.NURSE ---
TOLERATING BIPAP WELL 14/6 AT 30% O2. PT AWARE OF PLAN FOR ADMISSION.
[2020-12-24] MEDS: Heparin Sodium,Porcine 5,000 UNIT/ML VIAL 5000 UNIT SUBCUT (16:08)
[2020-12-24] MEDS: 0.9 % Sodium Chloride Flush 3 ML SYRINGE IVFLUSH (16:08)
--- NOTE | 2020-12-24 17:03 | PC.NURSE ---
PT APPROVED FOR [facility], PT IS OFF BIPAP AT THIS TIME AND STABLE. CALLED UP TO [facility] FOR REPORT, AWAITING CALL BACK.
--- NOTE | 2020-12-24 18:25 | PC.NURSE ---
BROUGHT IN HOME EQUIPMENT FOR CPAP, DISCUSSED NEED FOR PT EDUCATION WITH [facility] RN & RT.
[2020-12-24] MEDS: Acetaminophen 325 MG TABLET 650 MG PO (20:27)
[2020-12-24] MEDS: Docusate Sodium 100 MG CAPSULE PO (20:27)
[2020-12-24] MEDS: Gabapentin 300 MG CAPSULE PO (20:27)
[2020-12-24] MEDS: Montelukast Sodium 10 MG TABLET PO (20:27)
[2020-12-24 20:33] LABS: Glucose, Whole Blood 265 mg/dL (60-115)
--- NOTE | 2020-12-24 23:00 | PC.NURSE ---
patient has backpack from home with not complete cpap set up, there is no mask ,no tubing
[2020-12-25] VITALS (11 sets, daily range): BP systolic 98–124; BP diastolic 58–73; PULSE 97–116; RESP 18–21; TEMP 36.1–36.9; O2SAT 88–100; BMI 17.2
[2020-12-25] MEDS: 0.9 % Sodium Chloride Flush 3 ML SYRINGE IVFLUSH ×3 (00:05→17:18)
[2020-12-25] MEDS: methylPREDNISolone Sod Succ 40 MG/ML VIAL IVPUSH ×3 (00:05→16:58)
[2020-12-25] MEDS: Heparin Sodium,Porcine 5,000 UNIT/ML VIAL 5000 UNIT SUBCUT ×2 (03:39→16:58)
[2020-12-25 06:46] LABS: Basophils Percent Auto 0.1 % (0-2); Hematocrit 35.3 % (42-52); Hemoglobin 10.9 g/dl (14.0-18.0); Imm Gran Abs Auto 0.06 X10*3/uL (0.00-0.03); Imm Gran Pct Auto 0.5 % (0.0-0.4); Lymphocytes Absolute Auto 0.4 X10*3/uL (1.2-4.9); Lymphocytes Percent Auto 3.1 % (20-40); MANUAL DIFF FLAG SCAN; Mean Corpuscular HGB Conc 30.9 g/dl (31.0-36.0); Mean Corpuscular Hemoglobin 29.2 pg (27.0-33.0); Mean Corpuscular Volume 94.6 fL (80-98); Mean Platelet Volume 9.6 fL (9.4-12.4); Monocytes Absolute Auto 0.2 X10*3/uL (0.1-1.2); Monocytes Percent Auto 1.4 % (2-11); Neutrophils Absolute Auto 12.4 X10*3/uL (2.0-8.3); Neutrophils Percent Auto 94.9 % (45-73); Platelet Count 539 X10*3/uL (160-400); Red Blood Count 3.73 X10*6/uL (4.60-5.80); Red Cell Distribution Width 17.3 % (11.0-16.0); SCAN SMEAR FLAG 1; White Blood Count 13.1 X10*3/uL (4.8-10.8)
[2020-12-25 06:53] LABS: Anion Gap 12 (12-20); Blood Urea Nitrogen 14 mg/dL (9-16); Calcium 8.6 mg/dL (8.4-10.2); Carbon Dioxide 40 mmol/L (22-29); Chloride 91 mmol/L (96-108); Creatinine Clr Calc Pharmacy 86.3; Estimated Glomerular Filt Rate > 60; Glucose Random 182 mg/dL (60-115); Potassium 6.1 mmol/L (3.3-5.1); Sodium 137 mmol/L (135-145)
[2020-12-25 07:27] LABS: Glucose, Whole Blood 178 mg/dL (60-115)
[2020-12-25 07:36] LABS: SLIDE REVIEW VERIFIED
[2020-12-25] MEDS: Omeprazole 20 MG CAPSULE.DR PO (08:00)
[2020-12-25] MEDS: Docusate Sodium 100 MG CAPSULE PO ×2 (08:00→20:34)
[2020-12-25] MEDS: Ferrous Sulfate 324 MG TABLET.DR PO (08:00)
[2020-12-25] MEDS: Sodium Polystyrene Sulfon/Sorb 15 GM/60 ML ORAL.SUSP 30 GM PO (08:00)
[2020-12-25] MEDS: Multivitamin TABLET 1 TAB PO (08:00)
[2020-12-25] MEDS: Aspirin Enteric Coated 81 MG TABLET.DR PO (08:00)
[2020-12-25] MEDS: Gabapentin 300 MG CAPSULE PO ×3 (08:00→20:33)
--- NOTE | 2020-12-25 09:38 | P.PNIM_ITS ---
Subjective Subjective Date of Service: 12/25/20 <Laurie Sosa NP - Last Filed: 12/25/20 09:46> 12/25/20 <Mohsen Penaloza MD - Last Filed: 12/25/20 17:46> Interval History: Follow up shortness of breath, hypoxia Still with some sob, but better today <Laurie Sosa NP - Last Filed: 12/25/20 09:46> Physical Exam Vital Signs: Vital Signs: Last Vital Signs Temp 97.8 F 12/25/20 07:02 Pulse 115 H 12/25/20 07:39 Resp 18 12/25/20 07:02 BP 115/64 12/25/20 07:02 Pulse Ox 95 12/25/20 07:02 Body Mass Index 17.2 <Laurie Sosa NP - Last Filed: 12/25/20 09:46> Appearing in no acute distress lung sounds very diminished at the bases heart regular rate rhythm, clear S1, S2 positive bowel sounds, abdomen is soft, nontender neuro patient is alert x3, no focal deficits <Laurie Sosa NP - Last Filed: 12/25/20 09:46> Objective Data Current Medications Generic Name Dose Route Start Last Admin Trade Name Freq PRN Reason Stop Dose Admin Acetaminophen 650 mg 12/24/20 15:47 12/24/20 20:27 Acetaminophen 325 Mg Tablet PO 650 mg Q6H PRN Administration Pain, Mild (Pain Scale 1-3) Albuterol/Ipratropium 3 ml 12/25/20 00:20 Albuterol/Iprat 2.5/0.5mg 3 Ml Ampul.Neb INHALE RQ4H PRN Shortness of Breath/Wheezing Aspirin 81 mg 12/25/20 09:00 12/25/20 08:00 Aspirin Enteric Coated 81 Mg Tablet. PO 81 mg DAILY ALFONSO Administration Atorvastatin Calcium 20 mg 12/25/20 21:00 Atorvastatin Calcium 20 Mg Tablet PO BEDTIME ALFONSO Docusate Sodium 100 mg 12/24/20 21:00 12/25/20 08:00 Docusate Sodium 100 Mg Capsule PO 100 mg BID ALFONSO Administration Ferrous Sulfate 324 mg 12/25/20 09:00 12/25/20 08:00 Ferrous Sulfate 324 Mg Tablet. PO 324 mg DAILY ALFONSO Administration Gabapentin 300 mg 12/24/20 21:00 12/25/20 08:00 Gabapentin 300 Mg Capsule PO 300 mg TID ALFONSO Administration Heparin Sodium (Porcine) 5,000 unit 12/24/20 16:00 12/25/20 03:39 Heparin Sodium,Porcine 5,000 Unit/Ml Vial SUBCUT 5,000 unit Q12H ALFONSO Administration Levalbuterol HCl 1.25 mg 12/24/20 16:00 12/25/20 07:35 Levalbuterol Hcl 1.25 Mg/0.5 Ml Vial.Neb INHALE 1.25 mg RQ4H WHILE AWAKE ALFONSO Administration Methylprednisolone Sodium Succinate 40 mg 12/24/20 16:00 12/25/20 08:00 Methylprednisolone Sod Succ 40 Mg/Ml Vial IVPUSH 40 mg Q8H ALFONSO Administration Montelukast Sodium 10 mg 12/24/20 21:00 12/24/20 20:27 Montelukast Sodium 10 Mg Tablet PO 10 mg BEDTIME ALFONSO Administration Multivitamins/Vitamin C 1 tab 12/25/20 09:00 12/25/20 08:00 Multivitamin Tablet PO 1 tab DAILY ALFONSO Administration Omeprazole 20 mg 12/25/20 09:00 12/25/20 08:00 Omeprazole 20 Mg Capsule. PO 20 mg DAILY ALFONSO Administration Ondansetron HCl 4 mg 12/24/20 15:47 Ondansetron Hcl 4 Mg/2 Ml Vial IVPUSH Q8H PRN Nausea and Vomiting Pharmacy Consult 1 each 12/24/20 13:29 Consult Rx Perform Med Rec MISCELLANE ONCE PRN Consult order Senna 8.6 - 17.2 mg 12/24/20 15:47 Sennosides 8.6 Mg Tablet PO BID PRN Constipation Sodium Chloride 3 ml 12/24/20 16:00 12/25/20 08:23 0.9 % Sodium Chloride Flush 3 Ml Syringe IVFLUSH 3 ml QSHIFT ALFONSO Administration <Laurie Sosa NP - Last Filed: 12/25/20 09:46> Labs CBC & Chem 7: : 12/25/20 05:30 12/25/20 05:30 <Laurie Sosa NP - Last Filed: 12/25/20 09:46> Assessment and Plan (1) COPD (chronic obstructive pulmonary disease): Status: Acute <Laurie Sosa NP - Last Filed: 12/25/20 09:46> Assessment and Plan: 65-year-old male history of COPD, bronchiectases, chronic SYED infection with multiple hospital visits for exacerbation. He also follows closely with [facility] pulmonology. He presents with similar symptoms of shortness of breath. He was supposed to be using a noninvasive mechanical ventilator, stated that he stopped using it because he felt suffocated. Now he reports with exacerbation. Acute on chronic hypoxic hypercapnic respiratory failure, secondary to COPD exacerbation. VBG showed CO2 72, chronic, placed on BiPAP in the ER, will need BiPAP/cpap at night. Family brought in home mech vent, forgot the additional wires, using hospital cpap for now - pulmonology consultation - steroids, levalbuterol due to tachycardia - continue oxygen titrate down as tolerated - due to his history of bronchiectasis will give Rocephin for now, on levaquin and prednisone at home empirically. Hypotension. Better today. Asymptomatic. Blood pressure improved with some IV fluids. -monitor blood pressure closely. -hold valsartan for now. Diabetes mellitus. -sliding scale Iron deficiency anemia. Signs of bleeding. -follow CBC. Leukocytosis. Chronic. Likely related to chronic steroid use. Protein calorie malnutrition. BMI 17.2 - Glucerna DVT prophylaxis with heparin Attending: Dr. Penaloza <Laurie Sosa NP - Last Filed: 12/25/20 09:46> (2) Moderate protein-calorie malnutrition: Status: Acute <Laurie Sosa NP - Last Filed: 12/25/20 09:46> Assessment and Plan: I saw and examined this patient and discussed finding with a mid- level provider a performed on independent physical exam. I agree with assessment and plan as outlined above patient is well known to the hospitalist service with current COPD respiratory failure will continue management as stated above including consultation with pulmonology otherwise agree with above managem ent and plan a <Mohsen Penaloza MD - Last Filed: 12/25/20 17:46>
--- NOTE | 2020-12-25 09:53 | P.CDIC_ITS ---
CDI Concurrent Query Service Date: 12/25/20 Documentation Clarification: Please clarify if you are treating a proba ble/suspected/likely or confirmed: Specifics: Protein calorie malnutrition, mild, moderate or severe Please specify if known or undetermined Wrong provider Provider Response: Other Other Diagnosis: wrong provider PLEASE DO NOT DELETE/MODIFY EXISTING CONTENT Additional information is needed in order to code to the highest accuracy and appropriate Severity of Illness (SOI). Please clarify the information noted below in your progress notes and discharge summary. Risk Factors/Clinical Indicators/Treatments PN 5/4 - Protein calorie malnutrition BMI 17.2 Glucerna CDS: Carole Chirinos CCS, CDIS Contact Number: [phone] Please Review the information above and exercise your independent professional judgment in responding to the query. If you concur, pleas document in the PROGRESS NOTES and DISCHARGE SUMMARY. If you do not agree with the query, please document in the query above. THIS QUERY IS PART OF THE PERMANENT MEDICAL RECORD
--- NOTE | 2020-12-25 10:01 | P.CDIC_ITS ---
CDI Concurrent Query Service Date: 12/25/20 Documentation Clarification: Please clarify if you are treating a proba ble/suspected/likely or confirmed: LABS: Hyperkalemia Please specify if known wrong provider Provider Response: Other Other Diagnosis: wrong provider PLEASE DO NOT DELETE/MODIFY EXISTING CONTENT Additional information is needed in order to code to the highest accuracy and appropriate Severity of Illness (SOI). Please clarify the information noted below in your progress notes and discharge summary. Risk Factors/Clinical Indicators/Treatments LAB FINDINGS: potassium 4.9 6.1 H CDS: Carole Chirinos CCS, CDIS Contact Number: [phone] Please Review the information above and exercise your independent professional judgment in responding to the query. If you concur, pleas document in the PROGRESS NOTES and DISCHARGE SUMMARY. If you do not agree with the query, please document in the query above. THIS QUERY IS PART OF THE PERMANENT MEDICAL RECORD
--- NOTE | 2020-12-25 10:02 | MHC.CM.PN ---
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
[2020-12-25 11:16] LABS: Glucose, Whole Blood 198 mg/dL (60-115)
--- NOTE | 2020-12-25 12:15 | MHC.CLN ---
PT IS MODERATELY MALNOURISHED PT WITH MILDLY DEPLETED SUBCUTANEOUS FAT AND MUSCLE MASS, BMI 17 DIET RX: 2000DM-APPROPRIATE WILL PROMOTE WT GAIN PT RECEIVING GLUCERNA TID PROVIDES 711KCALS, 30G PROTEIN MONITOR PO INTAKE SEE ALSO CLINICAL NUTRITION ASSESSMENT
[2020-12-25] MEDS: Acetaminophen 325 MG TABLET 650 MG PO (18:47)
[2020-12-25 18:53] LABS: Potassium 4.3 mmol/L (3.3-5.1)
[2020-12-25] MEDS: Montelukast Sodium 10 MG TABLET PO (20:33)
[2020-12-25] MEDS: Atorvastatin Calcium 20 MG TABLET PO (20:34)
[2020-12-26] VITALS (10 sets, daily range): BP systolic 110–126; BP diastolic 58–69; PULSE 87–118; RESP 16–30; TEMP 36.5–36.7; O2SAT 91–100
[2020-12-26] MEDS: methylPREDNISolone Sod Succ 40 MG/ML VIAL IVPUSH ×3 (00:30→16:03)
[2020-12-26] MEDS: 0.9 % Sodium Chloride Flush 3 ML SYRINGE IVFLUSH ×4 (00:30→21:35)
[2020-12-26] MEDS: Heparin Sodium,Porcine 5,000 UNIT/ML VIAL 5000 UNIT SUBCUT ×2 (05:17→16:03)
[2020-12-26 07:37] LABS: Glucose, Whole Blood 197 mg/dL (60-115)
[2020-12-26] MEDS: Gabapentin 300 MG CAPSULE PO ×3 (07:50→21:35)
[2020-12-26] MEDS: Aspirin Enteric Coated 81 MG TABLET.DR PO (07:50)
[2020-12-26] MEDS: Ferrous Sulfate 324 MG TABLET.DR PO (07:50)
[2020-12-26] MEDS: Docusate Sodium 100 MG CAPSULE PO ×2 (07:50→21:35)
[2020-12-26] MEDS: Multivitamin TABLET 1 TAB PO (07:50)
[2020-12-26] MEDS: Omeprazole 20 MG CAPSULE.DR PO (07:50)
[2020-12-26] MEDS: Acetaminophen 325 MG TABLET 650 MG PO ×2 (11:17→19:26)
--- NOTE | 2020-12-26 13:06 | P.PNIM_ITS ---
Subjective Subjective Date of Service: 12/26/20 Interval History: Seen in f/u for for acute on chronic hypoxic respriatory failure. He feels better Review of Systems Gen: no fever Resp: no sob, no cough CV: no chest, no KHAN, no leg edema GI: No n/v, no abd pain Neuro: No confusion Physical Exam Vital Signs: Vital Signs: Last Vital Signs Temp 98.1 F 12/26/20 11:21 Pulse 114 H 12/26/20 11:21 Resp 19 12/26/20 11:21 BP 126/67 12/26/20 11:21 Pulse Ox 99 12/26/20 11:21 Body Mass Index 17.2 Objective Data Current Medications Generic Name Dose Route Start Last Admin Trade Name Freq PRN Reason Stop Dose Admin Acetaminophen 650 mg 12/24/20 15:47 12/26/20 11:17 Acetaminophen 325 Mg Tablet PO 650 mg Q6H PRN Administration Pain, Mild (Pain Scale 1-3) Albuterol/Ipratropium 3 ml 12/25/20 00:20 Albuterol/Iprat 2.5/0.5mg 3 Ml Ampul.Neb INHALE RQ4H PRN Shortness of Breath/Wheezing Aspirin 81 mg 12/25/20 09:00 12/26/20 07:50 Aspirin Enteric Coated 81 Mg Tablet. PO 81 mg DAILY ALFONSO Administration Atorvastatin Calcium 20 mg 12/25/20 21:00 12/25/20 20:34 Atorvastatin Calcium 20 Mg Tablet PO 20 mg BEDTIME ALFONSO Administration Docusate Sodium 100 mg 12/24/20 21:00 12/26/20 07:50 Docusate Sodium 100 Mg Capsule PO 100 mg BID ALFONSO Administration Ferrous Sulfate 324 mg 12/25/20 09:00 12/26/20 07:50 Ferrous Sulfate 324 Mg Tablet. PO 324 mg DAILY ALFONSO Administration Gabapentin 300 mg 12/24/20 21:00 12/26/20 07:50 Gabapentin 300 Mg Capsule PO 300 mg TID ALFONSO Administration Heparin Sodium (Porcine) 5,000 unit 12/24/20 16:00 12/26/20 05:17 Heparin Sodium,Porcine 5,000 Unit/Ml Vial SUBCUT 5,000 unit Q12H ALFONSO Administration Levalbuterol HCl 1.25 mg 12/24/20 16:00 12/26/20 11:00 Levalbuterol Hcl 1.25 Mg/0.5 Ml Vial.Neb INHALE 1.25 mg RQ4H WHILE AWAKE ALFONSO Administration Methylprednisolone Sodium Succinate 40 mg 12/24/20 16:00 12/26/20 07:50 Methylprednisolone Sod Succ 40 Mg/Ml Vial IVPUSH 40 mg Q8H ALFONSO Administration Montelukast Sodium 10 mg 12/24/20 21:00 12/25/20 20:33 Montelukast Sodium 10 Mg Tablet PO 10 mg BEDTIME ALFONSO Administration Multivitamins/Vitamin C 1 tab 12/25/20 09:00 12/26/20 07:50 Multivitamin Tablet PO 1 tab DAILY ALFONSO Administration Omeprazole 20 mg 12/25/20 09:00 12/26/20 07:50 Omeprazole 20 Mg Capsule.Dr PO 20 mg DAILY ALFONSO Administration Ondansetron HCl 4 mg 12/24/20 15:47 Ondansetron Hcl 4 Mg/2 Ml Vial IVPUSH Q8H PRN Nausea and Vomiting Pharmacy Consult 1 each 12/24/20 13:29 Consult Rx Perform Med Rec MISCELLANE ONCE PRN Consult order Senna 8.6 - 17.2 mg 12/24/20 15:47 Sennosides 8.6 Mg Tablet PO BID PRN Constipation Sodium Chloride 3 ml 12/24/20 16:00 12/26/20 07:50 0.9 % Sodium Chloride Flush 3 Ml Syringe IVFLUSH 3 ml QSHIFT ALFONSO Administration Labs CBC & Chem 7: 12/25/20 05:30 12/25/20 18:12 Microbiology Microbiology Results: Microbiology 12/24/20 11:21 Blood - Venous Blood Culture - Preliminary No growth after 24 hours. 12/24/20 10:58 Blood - Venous Blood Culture - Preliminary No growth after 24 hours. Assessment and Plan (1) COPD (chronic obstructive pulmonary disease): Status: Acute (2) Moderate protein-calorie malnutrition: Status: Acute Assessment and Plan: 65-year-old male history of COPD, bronchiectases, chronic SYED infection with multiple hospital visits for exacerbation. He also follows closely with [facility] [place]. He presents with similar symptoms of shortness of breath. He was supposed to be using a noninvasive mechanical ventilator, stated that he stopped using it because he felt suffocated. Now he reports with exacerbation. Acute on chronic hypoxic hypercapnic respiratory failure, secondary to COPD exacerbation -continue present manamenet, transition to oral Prednisone - pulmonology consultation - steroids, levalbuterol due to tachycardia - continue oxygen titrate down as tolerated - due to his history of bronchiectasis Doxy Hypotension. Better, continue holding Valsartan for now. Diabetes mellitus. -sliding scale Iron deficiency anemia. chronic and stable. Leukocytosis. Chronic. Likely related to chronic steroid use. Severe Protein calorie malnutrition. BMI 17.2 - Glucerna Home tomorrow DVT prophylaxis with heparin
[2020-12-26] MEDS: LORazepam 0.5 MG TABLET 0.25 MG PO (17:45)
[2020-12-26] MEDS: Atorvastatin Calcium 20 MG TABLET PO (21:35)
[2020-12-26] MEDS: Montelukast Sodium 10 MG TABLET PO (21:35)
[2020-12-26] MEDS: guaiFENesin 100 MG/5 ML LIQUID PO (21:35)
[2020-12-27] MEDS: methylPREDNISolone Sod Succ 40 MG/ML VIAL IVPUSH ×2 (00:12→09:41)
[2020-12-27] MEDS: LORazepam 0.5 MG TABLET 0.25 MG PO ×2 (01:46→09:40)
[2020-12-27] MEDS: Acetaminophen 325 MG TABLET 650 MG PO ×2 (03:39→10:49)
[2020-12-27] MEDS: Heparin Sodium,Porcine 5,000 UNIT/ML VIAL 5000 UNIT SUBCUT (03:43)
[2020-12-27 04:00] VITALS: BP 118/64; PULSE 119; RESP 18; TEMP 36.6; O2SAT 95
[2020-12-27 07:22] VITALS: BP 122/70; PULSE 96; RESP 21; TEMP 36.2; O2SAT 99
[2020-12-27 08:24] VITALS: PULSE 93; O2SAT 99
[2020-12-27] MEDS: Multivitamin TABLET 1 TAB PO (09:40)
[2020-12-27] MEDS: Ferrous Sulfate 324 MG TABLET.DR PO (09:40)
[2020-12-27] MEDS: Docusate Sodium 100 MG CAPSULE PO (09:40)
[2020-12-27] MEDS: Aspirin Enteric Coated 81 MG TABLET.DR PO (09:40)
[2020-12-27] MEDS: Omeprazole 20 MG CAPSULE.DR PO (09:40)
[2020-12-27] MEDS: Gabapentin 300 MG CAPSULE PO (09:40)
[2020-12-27] MEDS: 0.9 % Sodium Chloride Flush 3 ML SYRINGE IVFLUSH (10:38)
--- NOTE | 2020-12-27 10:57 | MHC.CLN ---
F/U PO ITNAKE 50% AVG DIET RX: 2000DM-APPROPRIATE WILL PROMOTE WT GAIN PT RECEIVING GLUCERNA TID PROVIDES 711KCALS, 30G PROTEIN CONTINUE TO MONITOR PO INTAKE
--- NOTE | 2020-12-27 11:18 | MHC.CM.PN ---
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
[2020-12-27 11:35] VITALS: PULSE 95; O2SAT 97
[2020-12-27 11:40] VITALS: BP 119/68; PULSE 101; RESP 23; TEMP 36.7; O2SAT 99
--- NOTE | 2020-12-27 12:07 | PM.DS ---
DS: Providers Provider Date of Service: 12/27/20 Date of admission: 12/24/20 15:47 Primary care physician: Unknown Physician DS: Diagnosis Discharge Diagnosis (1) COPD (chronic obstructive pulmonary disease): Status: Acute (2) Moderate protein-calorie malnutrition: Status: Acute DS: Medications Discharge Medications Home Medications: Home Medications Medication Instructions Recorded Confirmed aspirin 81 mg PO DAILY 06/01/20 12/24/20 atorvastatin 20 mg PO DAILY 06/01/20 12/24/20 montelukast 10 mg PO BEDTIME 06/01/20 12/24/20 ferrous sulfate 325 mg PO DAILY 08/05/20 12/24/20 fluticasone propionate 2 spray INTRANASAL DAILY PRN 08/05/20 12/24/20 ketoconazole 1 appl TOPICAL 2XW 08/05/20 12/24/20 multivitamin 1 tab PO DAILY 08/05/20 12/24/20 sennosides [senna] 1 - 2 tab PO BID PRN 08/05/20 12/24/20 Incruse Ellipta 1 inh INHALATION DAILY 09/03/20 12/24/20 Breo Ellipta 1 inh INHALATION DAILY 10/10/20 12/24/20 gabapentin 300 mg PO TID 10/10/20 12/24/20 valsartan 20 mg PO DAILY 10/10/20 12/24/20 docusate sodium 100 mg PO BID 11/29/20 12/24/20 albuterol sulfate 2 puff PO Q4-6H PRN 12/24/20 12/24/20 ipratropium-albuterol 1 amp INHALATION QID 12/24/20 12/24/20 Previous Rx's Medication Instructions Recorded insulin lispro [Humalog U-100 1 sliding scale dose SUBCUT 12/05/20 Insulin] QIDACHS #10 ml omeprazole 20 mg PO DAILY #30 cap 12/05/20 levofloxacin 250 mg tablet See Rx Instructions PO DAILY #30 12/17/20 tab dextromethorphan-guaifenesin 10 ml PO Q4-8H PRN #118 ml 12/27/20 [Robitussin Cough-Chest Von DM] prednisone See Taper PO DAILY #30 tab 12/27/20 DS: Summary Hospital Course Hospital Course: 65-year-old male with history of SYED, history of COPD, chronic respiratory failure, chronic bronchiectasis, he is on home O2 about 3-4 L. he presented with yet another episode of respiratory difficulty, shortness of breath, cough. No fever or chills. Negative, and no acute changes on CXR. He was admitted for acute exacerbation of COPD associated with a chronic bronchiectasis. He has been treated with a antibiotics with a cefuroxime and IV Solu-Medrol and has done well now he is feeling better back to his baseline and at this point will be discharged home with a prednisone taper and to continue use of liquid Levaquin which is prescribed on chronic basis and to continue inhalers and oxygen. He is advised to follow-up with the Pulmonary Clinic Time Spent with Patient Time attestation: Total time spent providing and/or coordinating discharge services: Discharge coordination time: Greater than 30 minutes Physical Exam Vital Signs: Vital Signs: Last Vital Signs Temp 98.1 F 12/27/20 11:40 Pulse 101 H 12/27/20 11:40 Resp 23 H 12/27/20 11:40 BP 119/68 12/27/20 11:40 Pulse Ox 99 12/27/20 11:40 Body Mass Index 17.2 General: AO X 3, no acute distress Resp: rhonchi, no wheezes, no respiratory distress, speaks in full sentences CVS: S1,S2,RRR GI: +BS, NT, no distention Skin: No rash Neuro: motor grossly intact Psych: appropriate affect DS: Data Data Completed and Pending Completed studies during hospitalization [Text1]: Procedures Assistance with Respiratory Ventilation, Less than 24 Consecutive Hours, Continuous Positive Airway Pressure (09/03/20) Detoxification Services for Substance Abuse Treatment (06/01/20) Insertion of Infusion Device into Superior Vena Cava, Percutaneous Approach (06/01/20) Introduction of Vasopressor into Peripheral Vein, Percutaneous Approach (06/01/20) Transfusion of Convalescent Plasma (Nonautologous) into Peripheral Vein, Percutaneous Approach, [employer] (09/03/20) Transfusion of Nonautologous Red Blood Cells into Peripheral Vein, Percutaneous Approach (11/29/20) Ultrasonography of Superior Vena Cava, Guidance (06/01/20) Labs on day of discharge: Preliminary micro results at discharge 12/24/20 11:21 Blood Culture - Preliminary Blood - Venous No growth after 48 hours. 12/24/20 10:58 Blood Culture - Preliminary Blood - Venous No growth after 48 hours. Discharge Plan Discharge Anticipated Discharge Date/Time: 12/27/20 11:45 Patient Disposition: Home, Self-Care Discharge Diagnosis: Acute on chronic respiratory Referrals: [facility] [Outside] - 1 Week Physician,Unknown [Primary Care Provider] - 1 Week Discharge Medications: New Robitussin Cough-Chest Von DM 5-100 mg/5 mL liquid 10 ml PO Q4-8H PRN (Reason: cough) Qty: 118 RF: 0 prednisone 10 mg tablet See Taper mg PO DAILY Qty: 30 RF: 0 Continued Incruse Ellipta 62.5 mcg/actuation Blister With Device 1 inh INHALATION DAILY RF: 0 valsartan 40 mg Tablet 20 mg PO DAILY RF: 0 Breo Ellipta 200-25 mcg/dose Blister With Device 1 inh INHALATION DAILY RF: 0 gabapentin 300 mg Capsule 300 mg PO TID RF: 0 ipratropium-albuterol 0.5 mg-3 mg(2.5 mg base)/3 mL solution for nebulization 1 amp inhalation QID RF: 0 albuterol sulfate 90 mcg/actuation HFA aerosol inhaler 2 puff PO Q4-6H PRN (Reason: wheezing) RF: 0 atorvastatin 20 mg tablet 20 mg PO DAILY RF: 0 aspirin 81 mg tablet,delayed release (DR/EC) 81 mg PO DAILY RF: 0 montelukast 10 mg tablet 10 mg PO BEDTIME RF: 0 multivitamin Tablet 1 tab PO DAILY RF: 0 sennosides [senna] 8.6 mg tablet 1 - 2 tab PO BID PRN (Reason: Constipation) RF: 0 ketoconazole 2 % shampoo 1 appl topical 2XW RF: 0 ferrous sulfate 325 mg (65 mg iron) tablet 325 mg PO DAILY RF: 0 fluticasone propionate 50 mcg/actuation spray,suspension 2 spray intranasal DAILY PRN (Reason: Nasal Congestion) RF: 0 docusate sodium 100 mg capsule 100 mg PO BID RF: 0 omeprazole 20 mg Capsule,Delayed Release(Dr/Ec) 20 mg PO DAILY Qty: 30 RF: 0 insulin lispro [Humalog U-100 Insulin] 100 unit/mL Solution 1 sliding scale dose subcut QIDACHS Qty: 10 RF: 0 levofloxacin 250 mg tablet See Rx Instructions PO DAILY Qty: 30 RF: 0 Discontinued prednisone 10 mg tablet See Rx Instructions .ROUTE .COMPLEX Qty: 50 RF: 0 Discharge Orders: Discharge Order (Routine); Ordered 12/27/20 Ordered By: Mohsen Penaloza Diet: advance to usual diet Activity on Discharge: As tolerated Stand Alone Forms: Patient Portal Discharge page Care Plan Goals: prevent frequent hospitalization and flare of copd and bronhiectasis Health Concerns: Crhonic respiratory failure, chronic protein Plan of Treatment: continue using oxygen at home, take prednisone as directed, follow up with your Doctor in a week, follow up with pulmonlary clinic Assessment: See above.
== END 2020-12-27 12:50 | disposition home or self-care (01) | DRG 190 ==
LOC: HO.ED 13:34 → HO.EDOVER 16:11 → HO.IMC 16:49
PROVIDERS: Family Medicine; Physician Assistant; Admitting Provider Nurse Practitioner Acute Care; Emergency Provider Emergency Medicine; PCP Internal Medicine; Visit Provider Internal Medicine
DX: J47.1 Bronchiectasis with (acute) exacerbation (principal); J96.22 Acute and chronic respiratory failure with hypercapnia; E43 Unspecified severe protein-calorie malnutrition; J96.21 Acute and chronic respiratory failure with hypoxia; Z68.1 Body mass index [BMI] 19.9 or less, adult; I95.9 Hypotension, unspecified; E11.9 Type 2 diabetes mellitus without complications; D50.9 Iron deficiency anemia, unspecified; D72.829 Elevated white blood cell count, unspecified; Z20.822 Contact with and (suspected) exposure to COVID-19; Z99.81 Dependence on supplemental oxygen; Z87.891 Personal history of nicotine dependence; Z79.4 Long term (current) use of insulin; Z79.51 Long term (current) use of inhaled steroids; Z79.52 Long term (current) use of systemic steroids; Z79.82 Long term (current) use of aspirin; Z79.899 Other long term (current) drug therapy
CPT/HCPCS: 0241U; 36415; 71045; 80048; 80076; 82947; 83605; 83735; 83880; 84132; 84484; 85025; 85610; 85730; 87040; 93005; 94640; 96365; 96375; 99285; J0696; J2920; J2930; J3475

== ENCOUNTER 2020-12-28 02:31 | Inpatient (IN) | payer OTHER, SELFPAY ==
[2020-12-28] VITALS (16 sets, daily range): BP systolic 100–157; BP diastolic 60–97; PULSE 86–131; RESP 15–34; TEMP 36.3–36.8; O2SAT 90–99; BMI 18.1
--- NOTE | ~2020-12-28 | XR_ITS ---
EXAMINATION: PORTABLE CHEST AND PORTABLE ABDOMEN CLINICAL INFORMATION: Assess ET tube NG tube COMPARISON: Baseline including 01/03/2021 TECHNIQUE: As above FINDINGS: ET tube central line and NG tube appear similar. Extensive acute and chronic changes about the right perihilar location retraction of pulmonary payal cephalad and increased markings. Superimposed infiltration particularly within the left lower lung zone appears to be progressive. No ectopic air. No measurable pleural effusion or overt pulmonary edema. Blunting of both costophrenic angles appears chronic. Limited upright abdomen at the level of the upper abdomen demonstrates no gross free air. NG tube appears satisfactory with its tip overlying the gastric body. XR/XR chest 1V IMPRESSION: No free air. Progressive infiltration left lung as above superimposed on chronic lung disease.
--- NOTE | ~2020-12-28 | XR_ITS ---
EXAMINATION: PORTABLE CHEST AND PORTABLE ABDOMEN CLINICAL INFORMATION: Assess ET tube NG tube COMPARISON: Baseline including 01/03/2021 TECHNIQUE: As above FINDINGS: ET tube central line and NG tube appear similar. Extensive acute and chronic changes about the right perihilar location retraction of pulmonary payal cephalad and increased markings. Superimposed infiltration particularly within the left lower lung zone appears to be progressive. No ectopic air. No measurable pleural effusion or overt pulmonary edema. Blunting of both costophrenic angles appears chronic. Limited upright abdomen at the level of the upper abdomen demonstrates no gross free air. NG tube appears satisfactory with its tip overlying the gastric body. XR/XR abdomen 1V IMPRESSION: No free air. Progressive infiltration left lung as above superimposed on chronic lung disease.
--- NOTE | ~2020-12-28 | CT_ITS ---
EXAMINATION: CT CHEST WITHOUT CONTRAST CLINICAL INFORMATION: Hypoxia. Infiltrates. COMPARISON: Previous chest CTs scans most recent 12/11/2020 TECHNIQUE: Multidetector volumetric CT imaging of the chest was done. Axial MIP volume rendering provided. Sagittal and coronal reformatted images were obtained. This CT examination was performed using dose optimization techniques as appropriate, variously including the following: *Automated exposure control *Adjustment of mA and/or kV according to patient size (this includes techniques or standardized protocols for targeted exams where dose is matched to indication/reason for exam; i.e. extremities or head) *Use of iterative reconstruction technique DLP: 14 6 mGy-cm FINDINGS: LUNGS: There is evidence of emphysema. There is biapical pleural and parenchymal scarring. There is bilateral upper lobe volume loss. There is bilateral upper lobe bronchiectasis, bronchial wall thickening and cystic or cavitary changes with areas of wall thickening and some air-fluid levels There are similar findings seen in the superior segment of the right lower lobe. This appears similar to previous exams. There is interval improvement in the right lower lobe infiltrate. There is very minimal residual atelectasis or consolidation seen in the posterior costophrenic angle of the right lower lobe for example axial image 45 series 5. There are areas of bronchiectasis and bronchial wall thickening in the right lower lobe axial image 40 series 5. This appears unchanged. There is new airspace disease seen in the left lower lobe with air bronchograms suggestive of pneumonia. MEDIASTINUM: The heart does not appear enlarged. There is coronary artery and aortic valve calcification. There is no pericardial effusion. The thoracic aorta and pulmonary arteries are normal in caliber. There is mediastinal lymphadenopathy that does not appear appreciably changed. Evaluation for hilar adenopathy is limited without contrast. PLEURA: There is a small left pleural effusion. There is no right pleural effusion. AXILLA: There is a left renal cyst. There are UPPER ABDOMEN: Unremarkable. OSSEOUS STRUCTURES: There is a T6 moderate to severe vertebral body compression fracture that is new in the interval from November 2020. There is a mild T7 vertebral body compression fracture versus Schmorl's node of the T7 vertebral body that is unchanged. CT/CT chest wo con IMPRESSION: New left lower lobe pneumonia and new small left pleural effusion. Improved right lower lobe pneumonia from November 2020 exam. Severe volume loss, scarring, bronchiectasis and cavitary formation in the bilateral upper lobes and superior segment of the right lower lobe similar to previous exams. New T6 vertebral body compression fracture.
--- NOTE | ~2020-12-28 | XR_ITS ---
EXAMINATION: XR CHEST CLINICAL INFORMATION: Tachypnea COMPARISON: 12/28/2020 TECHNIQUE: Frontal view of the chest was obtained. FINDINGS: Cardiac leads overlie the chest. Biapical scarring with cystic changes in the upper lungs, similar to prior. Patchy opacity at the left base appears increased from prior. No pleural effusion. No pneumothorax. The cardiomediastinal silhouette is unchanged, with a calcified aorta. XR/XR chest 1V IMPRESSION: Similar appearance of the upper lungs. Increased patchy left basilar opacity which could represent atelectasis or pneumonia. Aspiration also possible.
--- NOTE | ~2020-12-28 | XR_ITS ---
EXAMINATION: XR CHEST CLINICAL INFORMATION: ET tube process RADHA COMPARISON: Chest 01/02/2021 TECHNIQUE: Frontal view of the chest was obtained. FINDINGS: Lungs are expanded with retraction of right hemidiaphragm likely from scarring. There is chronic bilateral apical pleural-parenchymal changes with loss of right lung volume. There is interstitial thickening throughout both lungs. No pneumothorax seen. Heart size and pulmonary vascularity is normal. Tip of endotracheal tube is 5.3 cm above the og. Tip of enteric tube is below the diaphragm in the stomach. Right jugular central catheter tip is in mid SVC. No gross bony abnormality seen. XR/XR chest 1V IMPRESSION: Chronic bilateral apical pleural/parenchymal changes with loss of right lung volume. Support lines and catheters are in satisfactory position.
--- NOTE | ~2020-12-28 | XR_ITS ---
EXAMINATION: XR CHEST CLINICAL INFORMATION: Hypoxia COMPARISON: 01/02/2021 TECHNIQUE: Frontal view of the chest was obtained. FINDINGS: The endotracheal tube terminates approximately 4 cm above the og. Enteric tube extends into the stomach. Right internal jugular central venous catheter terminates near the cavoatrial junction. Cardiac leads overlie the chest. The lungs are well expanded. Biapical chronic changes are again noted. This includes scarring and bullous formation. The left basilar airspace opacity remains. No pneumothorax. No significant pleural effusion. The cardiomediastinal silhouette is normal in size with a calcified aorta. XR/XR chest 1V IMPRESSION: Endotracheal tube terminates approximately 4 cm above the og. Chronic changes of the upper lungs. Persistent left basilar airspace opacity.
--- NOTE | ~2020-12-28 | XR_ITS ---
EXAMINATION: XR CHEST CLINICAL INFORMATION: Shortness of breath COMPARISON: 12/24/2017 TECHNIQUE: Frontal view of the chest was obtained. FINDINGS: Redemonstrated biapical scarring and cystic changes in the upper lungs. Associated regions of opacity appears slightly improved since 12/24/2020. No acute consolidation is seen. No definite pneumothorax or significant pleural effusion. The cardiomediastinal silhouette is stable. No acute osseous findings are seen. XR/XR chest 1V IMPRESSION: Redemonstrated chronic findings at the lung apices with scarring and cystic changes. Associated parenchymal opacities appear slightly improved since 12/24/2020.
--- NOTE | ~2020-12-28 | XR_ITS ---
EXAMINATION: XR CHEST CLINICAL INFORMATION: Hypoxia COMPARISON: Multiple prior studies. Most recent exam CT chest 01/01/2021. Chest x-ray 12/31/2020 TECHNIQUE: Frontal view of the chest was obtained. 6:29 PM FINDINGS: Again demonstrated are the chronic changes of the lungs. Biapical scarring and cystic changes with elevated right and left diaphragm. There is persistent patchy airspace disease at the left lung base. This is slightly worse on the prior study of 12/31/2020. No significant pleural effusion. XR/XR chest 1V IMPRESSION: Worsening airspace disease at the left lung base.
--- NOTE | 2020-12-28 02:38 | ECG_ITS ---
Test Reason : SOB Blood Pressure : / mmHG Vent. Rate : 125 BPM Atrial Rate : 125 BPM P-R Int : 112 ms QRS Dur : 078 ms QT Int : 312 ms P-R-T Axes : 084 -05 072 degrees QTc Int : 450 ms Artifact in tracing Sinus tachycardia Abnormal ECG When compared with ECG of 24-DEC-2020 10:47, No significant changes seen Referred By: Glenys Church Electronically Signed By:CRISTINA SOLORZANO
--- NOTE | 2020-12-28 03:12 | ED_ITS ---
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 Patient denies any fevers, chills, abdominal pain, but does describe back pain. Otherwise, he denies any sore throat, chest pain/palpitations. Related Data Home Medications Medication Instructions Recorded Confirmed aspirin 81 mg PO DAILY 06/01/20 12/24/20 atorvastatin 20 mg PO DAILY 06/01/20 12/24/20 montelukast 10 mg PO BEDTIME 06/01/20 12/24/20 ferrous sulfate 325 mg PO DAILY 08/05/20 12/24/20 fluticasone propionate 2 spray INTRANASAL DAILY PRN 08/05/20 12/24/20 ketoconazole 1 appl TOPICAL 2XW 08/05/20 12/24/20 multivitamin 1 tab PO DAILY 08/05/20 12/24/20 sennosides [senna] 1 - 2 tab PO BID PRN 08/05/20 12/24/20 Incruse Ellipta 1 inh INHALATION DAILY 09/03/20 12/24/20 Breo Ellipta 1 inh INHALATION DAILY 10/10/20 12/24/20 gabapentin 300 mg PO TID 10/10/20 12/24/20 valsartan 20 mg PO DAILY 10/10/20 12/24/20 docusate sodium 100 mg PO BID 11/29/20 12/24/20 albuterol sulfate 2 puff PO Q4-6H PRN 12/24/20 12/24/20 ipratropium-albuterol 1 amp INHALATION QID 12/24/20 12/24/20 Previous Rx's Medication Instructions Recorded insulin lispro [Humalog U-100 1 sliding scale dose SUBCUT 12/05/20 Insulin] QIDACHS #10 ml omeprazole 20 mg PO DAILY #30 cap 12/05/20 levofloxacin 250 mg tablet See Rx Instructions PO DAILY #30 12/17/20 tab dextromethorphan-guaifenesin 10 ml PO Q4-8H PRN #118 ml 12/27/20 [Robitussin Cough-Chest Von DM] prednisone See Taper PO DAILY #30 tab 12/27/20 Allergies Allergy/AdvReac Type Severity Reaction Status Date / Time morphine [MORPHINE] Allergy Mild VOMITING Verified 11/29/20 04:04 Review of Systems Review of Systems: Pertinent positives and negatives as stated in HPI 10 point review systems is otherwise negative. [facility] Past Medical History Source: nursing notes reviewed Medical History AIHA (autoimmune hemolytic anemia) Anemia Asthma Bronchiectasis Chronic hypercapnic respiratory failure Cocaine abuse COPD (chronic obstructive pulmonary disease) COVID-19 virus infection SYED (mycobacterium avium-intracellulare) Moderate protein-calorie malnutrition Pleural effusion Serratia marcescens infection Family History Family History Other Family history non-contributory HTN (hypertension) Social History Social History Household Members: Spouse Housing: Apartment Do you presently have visiting nurse or other home services: Yes Alcohol intake: never Smoking Status: Former smoker Tobacco Type: Cigarette Packs Per Day: 2 Years Smoked: 50 Second Hand Smoke Exposure: No Substance Use Type: Crack/Cocaine Advance Directives: No Advance Directives Information Provided: No service: No Current occupational status: retired and disabled Physical Exam Vital Signs: Vital Signs: Last Vital Signs Pulse 124 H 12/28/20 04:49 Resp 34 H 12/28/20 04:25 BP 116/72 12/28/20 04:25 Pulse Ox 92 12/28/20 04:25 Oxygen Flow Rate 15 12/28/20 02:33 Body Mass Index 18.1 VITAL SIGNS: Reviewed. GENERAL: Well developed, well nourished, in no acute distress. HEAD: Normocephalic/atraumatic, EYES: PERRLA, EOMI OROPHARYNX: no oral lesions noted, posterior pharynx clear NECK: Supple, no adenopathy LUNGS: Coarse rhonchi throughout, tachypnea SpO2<99 on 100% non-rebreather> CARDIOVASCULAR: Regular rate and rhythm without noted murmurs, no JVD or lower extremity edema. ABDOMEN: Soft, non-tender, non-distended with bowel sounds. MUSCULOSKELETAL: No tenderness, deformities, or effusions noted on gross inspection. EXTREMITIES: No cyanosis, clubbing or edema. SKIN: Inspection of the skin reveals no rashes NEUROLOGIC: Alert and oriented x 4. Strength and sensation to light touch were grossly intact x 4. Course Course Course Narrative: 65-year-old male with acute on chronic respiratory failure appears to be secondary to COPD exacerbation with VBG significant for PCO2-82. Patient was also provided with Solu-Medrol, DuoNeb, Xopenex, and placed on high- flow with gradual improvement of symptoms. Review of all investigations without acute changes in comparison except increase leukocytosis when compared to prior as well as an elevated BNP of 108 without clinical signs to support heart failure. Patient provided with antibiotics and does not meet criteria for IV fluids at this time. The case was discussed with inpatient hospitalist team who is agreeable for admission. MDM - SOB/Dyspnea Lab Data Result diagrams: 12/28/20 02:55 12/28/20 02:55 Labs: Lab Results 12/28/20 12/28/20 12/28/20 Range/Units 02:55 02:55 02:55 WBC 21.9 H (4.8-10.8) X10*3/uL RBC 4.02 L (4.60-5.80) X10*6/uL Hgb 11.6 L (14.0-18.0) g/dl Hct 37.8 L (42-52) % MCV 94.0 (80-98) fL MCH 28.9 (27.0-33.0) pg MCHC 30.7 L (31.0-36.0) g/dl RDW 16.5 H (11.0-16.0) % Plt Count 575 H (160-400) X10*3/uL MPV 9.0 L (9.4-12.4) fL Immature Gran % (Auto) 0.6 H (0.0-0.4) % Neut % (Auto) 85.5 H (45-73) % Lymph % (Auto) 4.6 L (20-40) % [place] % (Auto) 9.2 (2-11) % Eos % (Auto) 0.0 (0-4) % Baso % (Auto) 0.1 (0-2) % Lymph # (Auto) 1.0 L (1.2-4.9) X10*3/uL [place] # (Auto) 2.0 H (0.1-1.2) X10*3/uL Eos # (Auto) 0.0 (0.0-0.4) X10*3/uL Baso # (Auto) 0.0 (0.0-0.2) X10*3/uL Abs Immat Gran (auto) 0.14 H (0.00-0.03) X10*3/uL Absolute Neuts (auto) 18.7 H (2.0-8.3) X10*3/uL Absolute Nucleated RBC 0.000 (0.0-0.012) X10*3/uL Nucleated RBC % (auto) 0.0 (0.0-0.2) /100WBC Smear Tech's Comments VERIFIED VBG pH (7.32-7.43) VBG pCO2 mmHg VBG pO2 mmHg VBG HCO3 (22-26) mmol/L VBG O2 Saturation % VBG Base Excess mmol/L Sodium 137 (135-145) mmol/L Potassium 4.8 (3.3-5.1) mmol/L Chloride 84 L (96-108) mmol/L Carbon Dioxide 47 H* (22-29) mmol/L Anion Gap 11 L (12-20) BUN 13 (9-16) mg/dL Creatinine 0.53 (0.5-1.4) mg/dL Estim Creat Clear Calc 93.0 Estimated GFR > 60 Random Glucose 100 D (60-115) mg/dL Lactic Acid 0.8 (0.5-2.0) mmol/L Calcium 8.9 (8.4-10.2) mg/dL Total Bilirubin 0.4 (0.0-1.0) mg/dL AST 23 (5-37) U/L ALT 24 (0-40) U/L Alkaline Phosphatase 122 H D (39-117) U/L B-Natriuretic Peptide (<100) pg/mL Total Protein 6.8 (6.5-8.0) g/dL Albumin 3.4 L (3.5-5.0) g/dL COVID-19 (LINDA) (Negative) COVID-19 Clin Com 12/28/20 12/28/20 12/28/20 Range/Units 02:55 03:22 04:41 WBC (4.8-10.8) X10*3/uL RBC (4.60-5.80) X10*6/uL Hgb (14.0-18.0) g/dl Hct (42-52) % MCV (80-98) fL MCH (27.0-33.0) pg MCHC (31.0-36.0) g/dl RDW (11.0-16.0) % Plt Count (160-400) X10*3/uL MPV (9.4-12.4) fL Immature Gran % (Auto) (0.0-0.4) % Neut % (Auto) (45-73) % Lymph % (Auto) (20-40) % [place] % (Auto) (2-11) % Eos % (Auto) (0-4) % Baso % (Auto) (0-2) % Lymph # (Auto) (1.2-4.9) X10*3/uL [place] # (Auto) (0.1-1.2) X10*3/uL Eos # (Auto) (0.0-0.4) X10*3/uL Baso # (Auto) (0.0-0.2) X10*3/uL Abs Immat Gran (auto) (0.00-0.03) X10*3/uL Absolute Neuts (auto) (2.0-8.3) X10*3/uL Absolute Nucleated RBC (0.0-0.012) X10*3/uL Nucleated RBC % (auto) (0.0-0.2) /100WBC Smear Tech's Comments VBG pH 7.45 H (7.32-7.43) VBG pCO2 82 mmHg VBG pO2 173 mmHg VBG HCO3 58 H (22-26) mmol/L VBG O2 Saturation 99.0 % VBG Base Excess 28.0 mmol/L Sodium (135-145) mmol/L Potassium (3.3-5.1) mmol/L Chloride (96-108) mmol/L Carbon Dioxide (22-29) mmol/L Anion Gap (12-20) BUN (9-16) mg/dL Creatinine (0.5-1.4) mg/dL Estim Creat Clear Calc Estimated GFR Random Glucose (60-115) mg/dL Lactic Acid (0.5-2.0) mmol/L Calcium (8.4-10.2) mg/dL Total Bilirubin (0.0-1.0) mg/dL AST (5-37) U/L ALT (0-40) U/L Alkaline Phosphatase (39-117) U/L B-Natriuretic Peptide 108 H (<100) pg/mL Total Protein (6.5-8.0) g/dL Albumin (3.5-5.0) g/dL COVID-19 (LINDA) Negative (Negative) COVID-19 Clin Com See Note Discharge Plan Discharge Clinical Impression: Acute and chronic respiratory failure, COPD (chronic obstructive pulmonary disease) Patient Disposition: Admitted As Inpatient
--- NOTE | 2020-12-28 03:23 | PC.NURSE ---
pt came in to ED on 15L NRB, per MD pt to be titrated off of NRB. Respiratory at bedside, dc'd NRB and applied 4L nasal cannula per pts baseline oxygen use at home. current 02 sat 93% on 4L nasal cannula. aware
[2020-12-28 03:28] LABS: VBG HCO3 58 mmol/L (22-26); VBG pCO2 82 mmHg; VBG pH 7.45 (7.32-7.43); VBG pO2 173 mmHg
[2020-12-28 03:28] LABS: Venous Blood Gas Refer to POC result
[2020-12-28 03:28] LABS: Basophils Percent Auto 0.1 % (0-2); Hematocrit 37.8 % (42-52); Hemoglobin 11.6 g/dl (14.0-18.0); Imm Gran Abs Auto 0.14 X10*3/uL (0.00-0.03); Imm Gran Pct Auto 0.6 % (0.0-0.4); Lymphocytes Percent Auto 4.6 % (20-40); MANUAL DIFF FLAG SCAN; Mean Corpuscular HGB Conc 30.7 g/dl (31.0-36.0); Mean Corpuscular Hemoglobin 28.9 pg (27.0-33.0); Monocytes Percent Auto 9.2 % (2-11); Neutrophils Absolute Auto 18.7 X10*3/uL (2.0-8.3); Neutrophils Percent Auto 85.5 % (45-73); Platelet Count 575 X10*3/uL (160-400); Red Blood Count 4.02 X10*6/uL (4.60-5.80); Red Cell Distribution Width 16.5 % (11.0-16.0); SCAN SMEAR FLAG 1; White Blood Count 21.9 X10*3/uL (4.8-10.8)
--- NOTE | 2020-12-28 03:37 | PC.NURSE ---
pt desat to 91% on 4L nasal cannula, respiratory paged. RT at bedside
--- NOTE | 2020-12-28 03:45 | PC.NURSE ---
RT at bedside. pt placed on high-flow oxygen 40% / 30L
[2020-12-28 03:47] LABS: Lactic Acid 0.8 mmol/L (0.5-2.0)
[2020-12-28 03:49] LABS: SLIDE REVIEW VERIFIED
[2020-12-28] MEDS: methylPREDNISolone Sod Succ 125 MG/2 ML VIAL IVPUSH (03:50)
[2020-12-28 03:56] LABS: B Type Natriuretic Peptide 108 pg/mL (<100)
[2020-12-28 03:57] LABS: Alanine Aminotransferase 24 U/L (0-40); Albumin Level 3.4 g/dL (3.5-5.0); Alkaline Phosphatase 122 U/L (39-117); Anion Gap 11 (12-20); Aspartate Amino Transferase 23 U/L (5-37); Bilirubin Total 0.4 mg/dL (0.0-1.0); Blood Urea Nitrogen 13 mg/dL (9-16); Calcium 8.9 mg/dL (8.4-10.2); Carbon Dioxide 47 mmol/L (22-29); Chloride 84 mmol/L (96-108); Estimated Glomerular Filt Rate > 60; Glucose Random 100 mg/dL (60-115); Potassium 4.8 mmol/L (3.3-5.1); Sodium 137 mmol/L (135-145); Total Protein 6.8 g/dL (6.5-8.0)
--- NOTE | 2020-12-28 03:57 | PC.NURSE ---
Bicm[place] 46 aware
[2020-12-28] MEDS: Albuterol/Iprat 2.5/0.5MG 3 ML AMPUL.NEB INHALE ×5 (03:58→23:44)
--- NOTE | 2020-12-28 04:42 | PC.NURSE ---
pt 02 sat 90-91% on high flow oxygen 40%/30L, pt stated he still feels short of breath, remains tachypnic in the 30s. aware. respiratory paged
[2020-12-28] MEDS: Acetaminophen 325 MG TABLET 975 MG PO (04:51)
[2020-12-28] MEDS: Lidocaine 4 % Patch ADH..PATCH 1 PATCH TRANSDERMA (04:52)
--- NOTE | 2020-12-28 04:52 | PC.NURSE ---
pt high flow oxygen increased to 70%/45L RT at bedside
--- NOTE | 2020-12-28 04:59 | PC.NURSE ---
Per MD, high flow oxygen setting to be adjusted in order to maintain 02 sat at or above 92%. Settings readjusted to 40%/45L, pt current 02 sat 95% on high flow oxygen 40%/45L. MD aware.
[2020-12-28 05:05] LABS: COVID-19 Test Negative (Negative)
[2020-12-28] MEDS: levoFLOXacin/D5W 750 MG/150 ML PIGGYBACK 100 MG IV (05:18)
[2020-12-28 05:50] LABS: Procalcitonin 0.03 ng/mL
--- NOTE | 2020-12-28 06:48 | PM.IMHP ---
History of Present Illness Date of Service: 12/28/20 Chief Complaint: Cough, sob This is a 65-year-old male well known to our service with history of COPD, chronic SYED, diabetes, COVID-19 infection, HTN, HLD, among others who presents to the hospital with complaints of shortness of breath cough, and sputum production ever since being discharged from the hospital the day prior. Fever or chills, no abdominal pain nausea or vomiting, no chest pain, no diarrhea or constipation, no urinary symptoms and no lower extremity edema. Patient was discharged on 12/27 for acute on chronic respiratory failure secondary to COPD and bronchiectasis. at that time was treated with Solu-Medrol and cefuroxime with improvement of his symptoms. Patient on baseline 3-4 L of oxygen. Patient was discharged home on taper of prednisone, and chronic levofloxacin for history of COPD. Vitals significant for heart rate of 123, respiratory rate of 31, blood pressure of 157/85, satting mid 80s on his 4 L of oxygen. He is on non-rebreather satting 99%. Labs are significant for WBC count of 21.9, hemoglobin of 11.6, pH of 7.54, pCO2 of 82, chloride of 84, bicarb of 47, BUN of 13, creatinine of 0.53, alk-phos of 122, BNP of 108 which is slightly higher than his usual, albumin of 2.4, chest x-ray negative for any acute disease, suggest redemonstration of chronic findings at the lung apices with scarring and cystic changes. Associated parenchymal opacities appears slightly improved from 12/24 Past medical history as below Review of Systems Review of Systems: Yes all other systems are reviewed and are negative [facility] Medical History AIHA (autoimmune hemolytic anemia) Anemia Asthma Bronchiectasis Chronic hypercapnic respiratory failure Cocaine abuse COPD (chronic obstructive pulmonary disease) COVID-19 virus infection SYED (mycobacterium avium-intracellulare) Moderate protein-calorie malnutrition Pleural effusion Serratia marcescens infection Family History Other Family history non-contributory HTN (hypertension) Social History Household Members: Spouse Housing: Apartment Do you presently have visiting nurse or other home services: Yes Alcohol intake: never Smoking Status: Former smoker Tobacco Type: Cigarette Packs Per Day: 2 Years Smoked: 50 Second Hand Smoke Exposure: No Substance Use Type: Crack/Cocaine Advance Directives: No Advance Directives Information Provided: No service: No Current occupational status: retired and disabled Meds Allergies Allergy/AdvReac Type Severity Reaction Status Date / Time morphine [MORPHINE] Allergy Mild VOMITING Verified 11/29/20 04:04 Home Medications Medication Instructions Recorded Confirmed Last Taken Type aspirin 81 mg PO DAILY 06/01/20 12/24/20 Unknown History atorvastatin 20 mg PO DAILY 06/01/20 12/24/20 Unknown History montelukast 10 mg PO BEDTIME 06/01/20 12/24/20 Unknown History ferrous sulfate 325 mg PO DAILY 08/05/20 12/24/20 Unknown History fluticasone propionate 2 spray INTRANASAL DAILY PRN 08/05/20 12/24/20 Unknown History ketoconazole 1 appl TOPICAL 2XW 08/05/20 12/24/20 Unknown History multivitamin 1 tab PO DAILY 08/05/20 12/24/20 Unknown History sennosides [senna] 1 - 2 tab PO BID PRN 08/05/20 12/24/20 Unknown History Incruse Ellipta 1 inh INHALATION DAILY 09/03/20 12/24/20 Unknown History Breo Ellipta 1 inh INHALATION DAILY 10/10/20 12/24/20 Unknown History gabapentin 300 mg PO TID 10/10/20 12/24/20 Unknown History valsartan 20 mg PO DAILY 10/10/20 12/24/20 Unknown History docusate sodium 100 mg PO BID 11/29/20 12/24/20 Unknown History albuterol sulfate 2 puff PO Q4-6H PRN 12/24/20 12/24/20 Unknown History ipratropium-albuterol 1 amp INHALATION QID 12/24/20 12/24/20 Unknown History Physical Exam Vital Signs and Narrative: Vital Signs: Last Vital Signs Pulse 124 H 12/28/20 04:49 Resp 34 H 12/28/20 04:25 BP 116/72 12/28/20 04:25 Pulse Ox 92 12/28/20 04:25 Oxygen Flow Rate 15 12/28/20 02:33 Body Mass Index 18.1 Const: General: cooperative and no acute distress Orientation/consciousness: patient oriented x3 Eyes: General: appearance normal, both eyes and all related structures Resp: Effort & Inspection: normal respiratory effort and able to speak in complete sentences Cardio: Rate: regular rate Rhythm: regular rhythm GI: Palpation (GI): Soft to palpation Auscultation: normal bowel sounds Skin: General skin exam: no rashes or lesions noted Neuro: General: patient oriented x3 Cognition (Neuro): normal cognition Extrem: General: Yes normal to inspection and Yes no pedal edema Results Labs CBC and Chem 7: 12/28/20 02:55 12/28/20 02:55 Labs: Laboratory Results - last 24 hr 12/28/20 12/28/20 12/28/20 02:55 02:55 02:55 MCV 94.0 MCH 28.9 MCHC 30.7 L RDW 16.5 H Plt Count 575 H MPV 9.0 L Immature Gran % (Auto) 0.6 H Neut % (Auto) 85.5 H Lymph % (Auto) 4.6 L [place] % (Auto) 9.2 Eos % (Auto) 0.0 Baso % (Auto) 0.1 Lymph # (Auto) 1.0 L [place] # (Auto) 2.0 H Eos # (Auto) 0.0 Baso # (Auto) 0.0 Abs Immat Gran (auto) 0.14 H Absolute Neuts (auto) 18.7 H Absolute Nucleated RBC 0.000 Nucleated RBC % (auto) 0.0 Smear Tech's Comments VERIFIED VBG pH VBG pCO2 VBG pO2 VBG HCO3 VBG O2 Saturation VBG Base Excess Anion Gap 11 L Estim Creat Clear Calc 93.0 Estimated GFR > 60 Random Glucose 100 D Lactic Acid 0.8 Calcium 8.9 Total Bilirubin 0.4 AST 23 ALT 24 Alkaline Phosphatase 122 H D B-Natriuretic Peptide Total Protein 6.8 Albumin 3.4 L Procalcitonin COVID-19 (LINDA) COVID-19 Clin Com 12/28/20 12/28/20 12/28/20 02:55 02:55 03:22 MCV MCH MCHC RDW Plt Count MPV Immature Gran % (Auto) Neut % (Auto) Lymph % (Auto) [place] % (Auto) Eos % (Auto) Baso % (Auto) Lymph # (Auto) [place] # (Auto) Eos # (Auto) Baso # (Auto) Abs Immat Gran (auto) Absolute Neuts (auto) Absolute Nucleated RBC Nucleated RBC % (auto) Smear Tech's Comments VBG pH 7.45 H VBG pCO2 82 VBG pO2 173 VBG HCO3 58 H VBG O2 Saturation 99.0 VBG Base Excess 28.0 Anion Gap Estim Creat Clear Calc Estimated GFR Random Glucose Lactic Acid Calcium Total Bilirubin AST ALT Alkaline Phosphatase B-Natriuretic Peptide 108 H Total Protein Albumin Procalcitonin 0.03 COVID-19 (LINDA) COVID-19 Clin Com 12/28/20 04:41 MCV MCH MCHC RDW Plt Count MPV Immature Gran % (Auto) Neut % (Auto) Lymph % (Auto) [place] % (Auto) Eos % (Auto) Baso % (Auto) Lymph # (Auto) [place] # (Auto) Eos # (Auto) Baso # (Auto) Abs Immat Gran (auto) Absolute Neuts (auto) Absolute Nucleated RBC Nucleated RBC % (auto) Smear Tech's Comments VBG pH VBG pCO2 VBG pO2 VBG HCO3 VBG O2 Saturation VBG Base Excess Anion Gap Estim Creat Clear Calc Estimated GFR Random Glucose Lactic Acid Calcium Total Bilirubin AST ALT Alkaline Phosphatase B-Natriuretic Peptide Total Protein Albumin Procalcitonin COVID-19 (LINDA) Negative COVID-19 Clin Com See Note Imaging Radiologist's Impressions: Impressions Chest X-Ray 12/28/20 02:38 IMPRESSION: Redemonstrated chronic findings at the lung apices with scarring and cystic changes. Associated parenchymal opacities appear slightly improved since 12/24/2020. Assessment and Plan (1) Acute and chronic respiratory failure: Status: Acute (2) COPD (chronic obstructive pulmonary disease): Status: Acute 65 yo with hx of COPD and hypoxic resp failure [facility], cough and sputum production # Acute on chronic hypoxic resp failure - presented with O2 in the 80s on his baseline 4 L of oxygen - complained of dyspnea, cough and sputum production - chest x-ray negative for any acute pneumonia - will restart him on Solu-Medrol 40 IV b.i.d. - DuoNeb p.r.n. and scheduled - titrate down O2 to baseline as tolerated # COPD exacerbation - was recently discharged on 12/27 after being managed for COPD exacerbation - will start him on Solu-Medrol, DuoNeb as above # hypertension - continue valsartan # diabetes - will start on low-dose sliding scale - diabetic diet - continue home insulin DVT prophylaxis: Heparin subQ
[2020-12-28] MEDS: Heparin Sodium,Porcine 5,000 UNIT/ML VIAL 5000 UNIT SUBCUT ×2 (09:26→19:50)
[2020-12-28] MEDS: methylPREDNISolone Sod Succ 40 MG/ML VIAL IVPUSH ×2 (09:26→19:50)
[2020-12-28] MEDS: 0.9 % Sodium Chloride Flush 3 ML SYRINGE IVFLUSH ×3 (09:27→19:51)
[2020-12-28] MEDS: Acetaminophen 325 MG TABLET 650 MG PO (10:57)
[2020-12-28 11:23] LABS: Glucose, Whole Blood 295 mg/dL (60-115)
[2020-12-28] MEDS: hydrOXYzine HCL 25 MG TABLET PO ×2 (11:35→17:52)
[2020-12-28] MEDS: Insulin Lispro 100 UNIT/ML 3 ML VIAL SUBCUT ×2 (11:35→16:29)
[2020-12-28 12:46] LABS: Glucose Urine UA 500 MG/DL (NEG); Leukocyte Esterase Urine NEG (NEG); Nitrite Urine NEG (NEG); PH 7.5 (5.0-8.0); Urine Blood NEG (NEG); Urine Ketones NEG (NEG); Urine Protein NEG (NEG-TRACE)
[2020-12-28 12:47] LABS: Appearance Urine CLEAR; Color Urine YELLOW
[2020-12-28] MEDS: LORazepam 2 MG/ML VIAL 0.5 MG IVPUSH ×2 (15:28→21:40)
[2020-12-28 16:25] LABS: Glucose, Whole Blood 204 mg/dL (60-115)
[2020-12-28] MEDS: Sertraline HCL 25 MG TABLET PO (16:29)
--- NOTE | 2020-12-28 18:31 | PC.NURSE ---
Patient up to unit around 0830. Patient on high-flow, reduced to 4L nasal cannula per recommendation from respiratory, satting in the mid 90s, pulmonology consult in place. Patient increasingly anxious, yelling out and yelling at staff. Orders for Atarax and Ativan obtained. Patient reports that he is going to take off his oxygen and and will hang himself because he is sick of feeling like this . Patient unable to provide plan as to how he will accomplish hanging himself. Nursing tile layer supervisor notified, hospitalist notified, telesitter in place. After patient was given medication around 1530, patient calmer, no longer reporting SI. Patient reports increased difficulty with urination, UA collected. Patient had about 6 seconds of SVT as high as 153 around 1800, hospitalist notified. Spoke to patient's and daughter re patient condition.
[2020-12-28 20:42] LABS: Glucose, Whole Blood 147 mg/dL (60-115)
--- NOTE | 2020-12-28 22:18 | P.CONPL_ITS ---
History of Present Illness History of Present Illness Consult date: 12/28/20 Chief complaint: acute on chronic hypoxic resp failure Narrative: This is a 65-year-old male well known to our service with history of COPD, chronic SYED, diabetes, previous COVID-19 infection with progressive resp iratory failure requiring multiple admissions to the hospital. He presents to the hospital with complaints of shortness of breath cough, and sputum production ever since being discharged from the hospital the day prior. Seemed like he felt ok, then suddenly his symptoms worsened. He denies fever or chills, no abdominal pain nausea or vomiting, no chest pain, no diarrhea or constipation, no urinary symptoms and no lower extremity edema. He presented to the ED via EMS on NRB with tachypnea and tachycardia. ABG with pH of 7.54, pCO2 of 82, chloride of 84, bicarb of 47, and chest x-ray with chronic findings at the lung apices with scarring and cystic changes. He was placed on HF briefly, now back on nasal cannula in the medical floor. Overall he feels better, but he is tired. He is asking if he is going to soon. Review of Systems Constitutional: Constitutional: Reports fatigue, Denies fever(s), Reports malaise, Denies night sweats and Reports weakness ENT: Denies change in voice, Denies lip swelling, Denies mouth pain, Reports nasal congestion, Reports nasal discharge and Denies tongue swelling Cardiovascular: Cardiovascular: Denies chest pain Respiratory: Respiratory: Reports change in phlegm color, Reports chest congestion, Reports cough, Denies hemoptysis, Reports excessive phlegm production, Denies pain on inspiration and Denies pain with cough Gastrointestinal: Gastrointestinal: Denies abdominal pain Musculoskeletal: Musculoskeletal: Denies no additional musculoskeletal complaints Neurologic: Denies Neuro-related abnormal movements and Reports weakness Psychiatric: Psychiatric: Denies no additional psychiatric complaints Endocrine: Endocrine: Reports fatigue Hematologic/Lymphatic: Hematologic/Lymphatic: Denies easy bleeding and Denies lymphadenopathy Allergic/Immunologic: Allergic/Immunologic: Denies lip swelling and Denies tongue swelling PMF Past Medical History Medical History (Updated 12/28/20 @ 22:28 by Guillermo Sosa MD) AIHA (autoimmune hemolytic anemia) Anemia Asthma Bronchiectasis Bronchiectasis Chronic hypercapnic respiratory failure Chronic hypercapnic respiratory failure Cocaine abuse COPD (chronic obstructive pulmonary disease) COVID-19 virus infection SYED (mycobacterium avium-intracellulare) Moderate protein-calorie malnutrition Pleural effusion Serratia marcescens infection Family History Family History Other Family history non-contributory HTN (hypertension) Social History Social History Household Members: Spouse Housing: Apartment Do you presently have visiting nurse or other home services: Yes Alcohol intake: never Smoking Status: Former smoker Tobacco Type: Cigarette Packs Per Day: 2 Cigarettes Per Day: 40.0 Years Smoked: 52 Smoked in Last 30 Days: No Smoking Quit Date: 03/2020 Patient Interested in Nicotine Replacement: No Patient Given Instructions on How to Stop Smoking: No Second Hand Smoke Exposure: Yes Use of substances other than those prescribed or required for medical reasons: No Substance Use Type: Crack/Cocaine Last Used Substance: Weeks (ago) Last Used Substance Other:: 9 months ago Currently Displaying Signs/Symptoms of Drug Intoxication Withdrawal: No Any prior treatment program specific to substance use: No Have you been hit, kicked, punched, or otherwise hurt by someone within the past year? If so, by whom?: No Do you feel safe in your current relationship?: No Is there a partner from a previous relationship who is making you feel unsafe no w?: No Are you made to feel afraid or neglected: No Spiritual Healthcare Practices: hinduism Advance Directives: No Advance Directives Information Provided: No Advance Directives on File: No Do you have thoughts of harming others: None Do you have a plan to hurt others: No Plan Recently lost weight without trying: No Nutrition Risks: No Nutritional Risk Poor oral hygiene: No service: No Current occupational status: retired and disabled Meds Allergies Allergy/AdvReac Type Severity Reaction Status Date / Time morphine [MORPHINE] Allergy Mild VOMITING Verified 11/29/20 04:04 Active Medications: Current Medications Generic Name Dose Route Start Last Admin Trade Name Freq PRN Reason Stop Dose Admin Acetaminophen 650 mg 12/28/20 08:18 12/28/20 10:57 Acetaminophen 325 Mg Tablet PO 650 mg Q6H PRN Administration Pain, Mild (Pain Scale 1-3) Albuterol/Ipratropium 3 ml 12/28/20 08:18 12/28/20 19:28 Albuterol/Iprat 2.5/0.5mg 3 Ml Ampul.Neb INHALE 3 ml RQ4H WHILE AWAKE ALFONSO Administration Albuterol/Ipratropium 3 ml 12/28/20 08:18 Albuterol/Iprat 2.5/0.5mg 3 Ml Ampul.Neb INHALE RQ4H PRN Shortness of Breath/Wheezing Docusate Sodium 100 mg 12/28/20 08:18 Docusate Sodium 100 Mg Capsule PO DAILY PRN Constipation Doxycycline Hyclate 100 mg 12/28/20 09:00 12/28/20 19:51 Doxycycline Hyclate 100 Mg Tablet PO 100 mg Q12H ALFONSO Administration Heparin Sodium (Porcine) 5,000 unit 12/28/20 08:00 12/28/20 19:50 Heparin Sodium,Porcine 5,000 Unit/Ml Vial SUBCUT 5,000 unit Q12H ALFONSO Administration Hydroxyzine HCl 25 mg 12/28/20 11:08 12/28/20 17:52 Hydroxyzine Hcl 25 Mg Tablet PO 25 mg Q6H PRN Administration anxiety/restlessness Insulin Human Lispro 0 unit 12/28/20 07:30 12/28/20 21:42 Insulin Lispro 100 Unit/Ml 3 Ml Vial SUBCUT Not Given QIDACHS [facility] Protocol Lorazepam 0.5 mg 12/28/20 15:03 12/28/20 21:40 Lorazepam 2 Mg/Ml Vial IVPUSH 0.5 mg Q6H PRN Administration anxiety/restlessness Methylprednisolone Sodium Succinate 40 mg 12/28/20 09:00 12/28/20 19:50 Methylprednisolone Sod Succ 40 Mg/Ml Vial IVPUSH 40 mg Q12H ALFONSO Administration Ondansetron HCl 4 mg 12/28/20 08:18 Ondansetron Hcl 4 Mg/2 Ml Vial IVPUSH Q8H PRN Nausea and Vomiting Sertraline HCl 25 mg 12/28/20 15:40 12/28/20 16:29 Sertraline Hcl 25 Mg Tablet PO 25 mg DAILY ALFONSO Administration Sodium Chloride 3 ml 12/28/20 08:18 12/28/20 19:51 0.9 % Sodium Chloride Flush 3 Ml Syringe IVFLUSH 3 ml QSHIFT ALFONSO Administration Home Medications Medication Instructions Recorded Confirmed Last Taken Type aspirin 81 mg PO DAILY 06/01/20 12/28/20 Unknown History atorvastatin 20 mg PO DAILY 06/01/20 12/28/20 Unknown History montelukast 10 mg PO BEDTIME 06/01/20 12/28/20 Unknown History ferrous sulfate 325 mg PO DAILY 08/05/20 12/28/20 Unknown History fluticasone propionate 2 spray INTRANASAL DAILY PRN 08/05/20 12/28/20 Unknown History ketoconazole 1 appl TOPICAL 2XW 08/05/20 12/28/20 Unknown History multivitamin 1 tab PO DAILY 08/05/20 12/28/20 Unknown History sennosides [senna] 1 - 2 tab PO BID PRN 08/05/20 12/28/20 Unknown History Incruse Ellipta 1 inh INHALATION DAILY 09/03/20 12/28/20 Unknown History Breo Ellipta 1 inh INHALATION DAILY 10/10/20 12/28/20 Unknown History gabapentin 300 mg PO TID 10/10/20 12/28/20 Unknown History valsartan 20 mg PO DAILY 10/10/20 12/28/20 Unknown History docusate sodium 100 mg PO BID 11/29/20 12/24/20 Unknown History albuterol sulfate 2 puff PO Q4-6H PRN 12/24/20 12/28/20 Unknown History ipratropium-albuterol 1 amp INHALATION QID 12/24/20 12/28/20 Unknown History Physical Exam Vital Signs: Vital Signs: Last Vital Signs Temp 98.3 F 12/28/20 20:00 Pulse 110 H 12/28/20 20:00 Resp 15 12/28/20 20:00 BP 112/68 12/28/20 20:00 Pulse Ox 92 12/28/20 20:00 Oxygen Flow Rate 12/28/20 02:33 Body Mass Index 18.1 Const: General: alert and tired appearing Eyes: Pupils: Equal, round and reactive pupils present Neck: Neck: Yes normal visual inspection, Yes full ROM and Yes no lymphadenopathy Chest: Chest palpation & inspection: normal inspection of the chest Resp: Auscultation: rhonchi, no wheezes and diminished lung sounds Cardio: Rate: regular rate Rhythm: regular rhythm Heart sounds: S1 normal heart sound present and S2 normal heart sound present GI: Palpation (GI): Soft to palpation and nontender Auscultation: normal bowel sounds Skin: General skin exam: rashes and/or lesions noted Neuro: Cranial nerves: Yes Equal, round and reactive pupils present Results Laboratory Findings CBC and BMP: 12/28/20 02:55 12/28/20 02:55 Abnormal lab findings: Abnormal Labs 12/28/20 12/28/20 12/28/20 02:55 02:55 02:55 WBC 21.9 H RBC 4.02 L Hgb 11.6 L Hct 37.8 L MCHC 30.7 L RDW 16.5 H Plt Count 575 H MPV 9.0 L Immature Gran % (Auto) 0.6 H Neut % (Auto) 85.5 H Lymph % (Auto) 4.6 L Lymph # (Auto) 1.0 L [place] # (Auto) 2.0 H Abs Immat Gran (auto) 0.14 H Absolute Neuts (auto) 18.7 H VBG pH VBG HCO3 Chloride 84 L Carbon Dioxide 47 H* Anion Gap 11 L POC Glucose Alkaline Phosphatase 122 H D B-Natriuretic Peptide 108 H Albumin 3.4 L Urine Glucose (UA) 12/28/20 12/28/20 12/28/20 03:22 11:15 11:45 WBC RBC Hgb Hct MCHC RDW Plt Count MPV Immature Gran % (Auto) Neut % (Auto) Lymph % (Auto) Lymph # (Auto) [place] # (Auto) Abs Immat Gran (auto) Absolute Neuts (auto) VBG pH 7.45 H VBG HCO3 58 H Chloride Carbon Dioxide Anion Gap POC Glucose 295 H Alkaline Phosphatase B-Natriuretic Peptide Albumin Urine Glucose (UA) 500 H 12/28/20 12/28/20 16:18 20:38 WBC RBC Hgb Hct MCHC RDW Plt Count MPV Immature Gran % (Auto) Neut % (Auto) Lymph % (Auto) Lymph # (Auto) [place] # (Auto) Abs Immat Gran (auto) Absolute Neuts (auto) VBG pH VBG HCO3 Chloride Carbon Dioxide Anion Gap POC Glucose 204 H 147 H Alkaline Phosphatase B-Natriuretic Peptide Albumin Urine Glucose (UA) Assessment and Plan (1) Bronchiectasis: Qualifiers: Bronchiectasis type: with acute lower respiratory infection Qualified Code(s): J47.0 - Bronchiectasis with acute lower respiratory infection Status: Acute (2) COPD (chronic obstructive pulmonary disease): Qualifiers: COPD type: COPD with acute lower respiratory infection Qualified Code(s): J44.0 - Chronic obstructive pulmonary disease with (acute) lower respiratory infection Status: Acute (3) Acute and chronic respiratory failure: Qualifiers: Respiratory failure complication: hypoxia Qualified Code(s): J96.21 - Acute and chronic respiratory failure with hypoxia Status: Acute (4) SYED (mycobacterium avium-intracellulare): Problem details: HE HAS HAD TO MA I INFECTION, TREATMENT TRIED IN THE PAST BUT HE COULD NOT TOLERATE. THIS IS GOING TO BE A CHRONIC COLONIZATION AND NO ACTIVE TREATMENT NEEDED FOR THIS AT THIS TIME Status: Inactive (5) Chronic hypercapnic respiratory failure: Status: Acute Continue respiratory therapy CPT with munual percussion and flutter valve 3-4 times aday Trial mucomust 10% 3ml with albuterol x times a day x 2 days Sputum culture sent Continue antibiotic therapy with zosyn/doxy Continue oxygen supplementation to keep pox 90-95% Consider nocturnal BIPAP 10/5 for his resp failure while sleeping The patient needs inpt pulmonary rehab upon discharge
[2020-12-29] VITALS (14 sets, daily range): BP systolic 94–166; BP diastolic 64–86; PULSE 85–123; RESP 18–28; TEMP 36.1–36.9; O2SAT 93–96
[2020-12-29] MEDS: hydrOXYzine HCL 25 MG TABLET PO ×3 (00:39→14:28)
[2020-12-29] MEDS: LORazepam 2 MG/ML VIAL 0.5 MG IVPUSH ×3 (03:14→17:22)
[2020-12-29 07:04] LABS: Basophils Percent Auto 0.1 % (0-2); Hemoglobin 10.6 g/dl (14.0-18.0); Imm Gran Abs Auto 0.11 X10*3/uL (0.00-0.03); Imm Gran Pct Auto 0.6 % (0.0-0.4); Lymphocytes Absolute Auto 0.5 X10*3/uL (1.2-4.9); Lymphocytes Percent Auto 2.9 % (20-40); MANUAL DIFF FLAG SCAN; Mean Corpuscular HGB Conc 32.1 g/dl (31.0-36.0); Mean Corpuscular Hemoglobin 29.2 pg (27.0-33.0); Mean Corpuscular Volume 90.9 fL (80-98); Mean Platelet Volume 9.7 fL (9.4-12.4); Monocytes Absolute Auto 1.2 X10*3/uL (0.1-1.2); Monocytes Percent Auto 6.6 % (2-11); Neutrophils Absolute Auto 16.3 X10*3/uL (2.0-8.3); Neutrophils Percent Auto 89.8 % (45-73); Platelet Count 575 X10*3/uL (160-400); Red Blood Count 3.63 X10*6/uL (4.60-5.80); Red Cell Distribution Width 16.9 % (11.0-16.0); SCAN SMEAR FLAG 1; White Blood Count 18.2 X10*3/uL (4.8-10.8)
[2020-12-29 07:25] LABS: Glucose, Whole Blood 125 mg/dL (60-115)
[2020-12-29] MEDS: Albuterol/Iprat 2.5/0.5MG 3 ML AMPUL.NEB INHALE ×4 (07:28→20:13)
[2020-12-29 07:39] LABS: SLIDE REVIEW VERIFIED
[2020-12-29 08:35] LABS: Anion Gap 12 (12-20); Blood Urea Nitrogen 13 mg/dL (9-16); Calcium 9.2 mg/dL (8.4-10.2); Carbon Dioxide 43 mmol/L (22-29); Chloride 82 mmol/L (96-108); Creatinine Clr Calc Pharmacy 96.7; Estimated Glomerular Filt Rate > 60; Glucose Random 136 mg/dL (60-115); Potassium 4.9 mmol/L (3.3-5.1); Sodium 132 mmol/L (135-145)
[2020-12-29] MEDS: 0.9 % Sodium Chloride Flush 3 ML SYRINGE IVFLUSH ×4 (08:52→21:45)
[2020-12-29] MEDS: methylPREDNISolone Sod Succ 40 MG/ML VIAL IVPUSH ×2 (08:52→21:41)
[2020-12-29] MEDS: Heparin Sodium,Porcine 5,000 UNIT/ML VIAL 5000 UNIT SUBCUT ×2 (09:06→21:41)
--- NOTE | 2020-12-29 09:08 | PC.NURSE ---
Addendum entered by Jeanie Rees 12/29/20 18:44: Patient continues to be anxious throughout the day, PRN anxiety medication given as needed with good effect as evidenced by patient resting. Patient refuses to eat but is drinking juice and water in adequate amounts. Original Note: Patient very anxious this AM, yelling out/jumping out of bed. PRN Atarax given. Crticial bicarb of 43 received, hospitalist notified. Patient taken off of high flow and put on 4 L NC per hospitalist. Patient satting in the low 90s, which is adequate per hospitalist. Patient now very tired, will only open eyes when saying his name/physical stimuli. PO doxy and sertraline held this AM due to condition, hospitalist aware. STAT ABG drawn.
[2020-12-29 09:18] LABS: ABG Base Excess 28.8 mmol/L; ABG HCO3 57 mmol/L (22-26); ABG pCO2 74 mmHg (32-45); ABG pH 7.49 (7.35-7.45); ABG pO2 62 mmHg (83-108)
[2020-12-29 09:20] LABS: ABG Refer to POC result
[2020-12-29 11:41] LABS: Glucose, Whole Blood 161 mg/dL (60-115)
[2020-12-29] MEDS: Insulin Lispro 100 UNIT/ML 3 ML VIAL SUBCUT ×2 (12:10→17:00)
[2020-12-29] MEDS: Doxycycline Hyclate 100 MG in 0.9 % Sodium Chloride 250 ML 166.67 MG IV (13:50)
--- NOTE | 2020-12-29 14:24 | P.PNIM_ITS ---
Subjective Subjective Date of Service: 12/29/20 Interval History: the patient was seen and evaluated this morning Laying in bed, sleepy anxious upon waking Had a rough with increased anxiety and feeling of shortness of breath requiring medications No reported other overnight events. Systemic review: No fever, chills but has generalized weakness No chest pain, palpitation Shortness of breath cough No abdominal pain, nausea or vomiting No urinary symptoms No any rash or wounds Physical Exam Vital Signs: Vital Signs: Last Vital Signs Temp 98.3 F 12/29/20 12:00 Pulse 114 H 12/29/20 12:00 Resp 28 H 12/29/20 12:00 BP 111/74 12/29/20 12:00 Pulse Ox 96 12/29/20 12:00 Oxygen Flow Rate 15 12/28/20 02:33 Body Mass Index 18.1 Const: Other: Constitutional : Alert with stimulation, oriented, looks anxious and distress Neck : Normal inspection, Supple Cardiovascular : RRR, S1 S2, no lower extremity edema Respiratory : Decreased bilateral air entry, no crackles, expiratory wheezes or rhonchi, increased work of breathing with anxiety Gastrointestinal: soft, lax, Normal bowel sounds, Non tender Skin : Warm/Dry, Neurological : Alert, No focal deficit Objective Data Current Medications Generic Name Dose Route Start Last Admin Trade Name Freq PRN Reason Stop Dose Admin Acetaminophen 650 mg 12/28/20 08:18 12/28/20 10:57 Acetaminophen 325 Mg Tablet PO 650 mg Q6H PRN Administration Pain, Mild (Pain Scale 1-3) Acetylcysteine 400 mg 12/29/20 12:30 12/29/20 13:24 Acetylcysteine 10 % 400 Mg/4 Ml Vial INHALE Not Given RBID ALFONSO Albuterol/Ipratropium 3 ml 12/28/20 08:18 12/29/20 11:17 Albuterol/Iprat 2.5/0.5mg 3 Ml Ampul.Neb INHALE 3 ml RQ4H WHILE AWAKE ALFONSO Administration Albuterol/Ipratropium 3 ml 12/28/20 08:18 12/28/20 23:44 Albuterol/Iprat 2.5/0.5mg 3 Ml Ampul.Neb INHALE 3 ml RQ4H PRN Administration Shortness of Breath/Wheezing Docusate Sodium 100 mg 12/28/20 08:18 Docusate Sodium 100 Mg Capsule PO DAILY PRN Constipation Heparin Sodium (Porcine) 5,000 unit 12/28/20 08:00 12/29/20 09:06 Heparin Sodium,Porcine 5,000 Unit/Ml Vial SUBCUT 5,000 unit Q12H [facility] Administration Hydroxyzine HCl 25 mg 12/28/20 11:08 12/29/20 07:06 Hydroxyzine Hcl 25 Mg Tablet PO 25 mg Q6H PRN Administration anxiety/restlessness Doxycycline Hyclate 100 mg/ 250 mls @ 166.67 mls/hr 12/29/20 13:00 12/29/20 13:50 Sodium Chloride IV 166.67 mls/hr Q12H ALFONSO Administration Insulin Human Lispro 0 unit 12/28/20 07:30 12/29/20 12:10 Insulin Lispro 100 Unit/Ml 3 Ml Vial SUBCUT 2 unit QIDACHS [facility] Administration Protocol Lorazepam 0.5 mg 12/28/20 15:03 12/29/20 10:57 Lorazepam 2 Mg/Ml Vial IVPUSH 0.5 mg Q6H PRN Administration anxiety/restlessness Methylprednisolone Sodium Succinate 40 mg 12/28/20 09:00 12/29/20 08:52 Methylprednisolone Sod Succ 40 Mg/Ml Vial IVPUSH 40 mg Q12H ALFONSO Administration Ondansetron HCl 4 mg 12/28/20 08:18 Ondansetron Hcl 4 Mg/2 Ml Vial IVPUSH Q8H PRN Nausea and Vomiting Sertraline HCl 25 mg 12/28/20 15:40 12/29/20 09:08 Sertraline Hcl 25 Mg Tablet PO Not Given DAILY [facility] Sodium Chloride 3 ml 12/28/20 08:18 12/29/20 08:52 0.9 % Sodium Chloride Flush 3 Ml Syringe IVFLUSH 3 ml QSHIFT [facility] Administration Labs CBC & Chem 7: 12/29/20 05:56 12/29/20 05:56 Microbiology Microbiology Results: Microbiology 12/28/20 03:15 Blood - Venous Blood Culture - Preliminary 12/29/20 00:16 Sputum - Expectorated Gram Stain - Final 12/28/20 03:18 Blood - Venous Blood Culture - Preliminary No growth after 24 hours. Assessment and Plan (1) Acute and chronic respiratory failure: Status: Acute (2) COPD (chronic obstructive pulmonary disease): Status: Acute Assessment and Plan: 65 yo with hx of COPD and hypoxic resp failure presents [facility] the [facility] with SOB, cough and sputum production Acute on chronic hypoxic resp failure Secondary to COPD exacerbation ABG done this morning showing elevated CO2 with maintaining pH Complaining dyspnea, cough and sputum production chest x-ray negative for any acute pneumonia Continue Solu-Medrol 40 IV b.i.d. DuoNeb p.r.n. and scheduled titrate down O2 to baseline as tolerated Pulmonology input appreciated, BiPAP at night, chest physical therapy, pulmonary rehab at discharge Positive blood culture One bottle growing gram-positive cocci in clusters On IV doxycycline Could be contaminant with no signs bacteremia Repeat blood cultures and weight sensitivity Increased anxiety Started sertraline To use Atarax as needed hypertension continue valsartan diabetes will start on low-dose sliding scale diabetic diet continue home insulin DVT prophylaxis: Heparin subQ
[2020-12-29] MEDS: Acetaminophen 325 MG TABLET 650 MG PO (15:18)
--- NOTE | 2020-12-29 16:08 | MHC.CM.PN ---
CM SPOKE TO PTS DAUGHTER/HCP, EMANUEL ([phone]) WHO REPORTS THE PT WENT TO [facility] FOR HIS LUNGS FOLLOWING A PREVIOUS ADMISSION BUT HE WAS ONLY THERE FOR ONE WEEK AND THEY SENT HIM HOME. SHE REPORTS SINCE RETURNING HOME THE PT HAS BEEN IN AND OUT OF THE HOSPITAL. EMANUEL REPORTS SHE SPOKE TO THE DOCTORS AND FEELS THAT THE PT HAS ANXIETY AND THAT IS WHY HE KEEPS GOING TO THE HOSPITAL. SHE REPORTS SHE IS INTERESTED IN A REFERRAL FOR IN HOME MENTAL HEALTH TREATMENT FOR THE PT. EMANUEL CONFIRMS THE DC PLAN WILL BE FOR PT TO RETURN HOME WITH HIS DANCE DIRECTOR AND RESUMPTION OF HIS [facility] PTS WILL TRANSPORT PLEASE CONTACT EMANUEL ONCE DC IS KNOWN
[2020-12-29 16:09] LABS: Glucose, Whole Blood 158 mg/dL (60-115)
[2020-12-29] MEDS: Acetylcysteine 10 % 400 MG/4 ML VIAL INHALE (20:13)
[2020-12-29 20:30] LABS: Glucose, Whole Blood 126 mg/dL (60-115)
--- NOTE | 2020-12-29 23:17 | PC.NURSE ---
2049 pt had 3 beat v-tach. notified.pt asymptomatic.
[2020-12-30] VITALS (11 sets, daily range): BP systolic 93–140; BP diastolic 51–78; PULSE 97–123; RESP 18–22; TEMP 36.8–37.6; O2SAT 91–97; BMI 18.1
[2020-12-30] MEDS: Doxycycline Hyclate 100 MG in 0.9 % Sodium Chloride 250 ML 166.62 MG IV ×2 (00:42→12:08)
[2020-12-30 05:13] LABS: Hemoglobin 11.3 g/dl (14.0-18.0); Mean Corpuscular HGB Conc 31.4 g/dl (31.0-36.0); Mean Corpuscular Hemoglobin 28.5 pg (27.0-33.0); Mean Corpuscular Volume 90.7 fL (80-98); Mean Platelet Volume 9.6 fL (9.4-12.4); Platelet Count 616 X10*3/uL (160-400); Red Blood Count 3.97 X10*6/uL (4.60-5.80); Red Cell Distribution Width 17.2 % (11.0-16.0)
[2020-12-30 05:37] LABS: Anion Gap 16 (12-20); Blood Urea Nitrogen 16 mg/dL (9-16); Calcium 9.3 mg/dL (8.4-10.2); Carbon Dioxide 36 mmol/L (22-29); Chloride 87 mmol/L (96-108); Estimated Glomerular Filt Rate > 60; Glucose Random 146 mg/dL (60-115); Sodium 134 mmol/L (135-145)
[2020-12-30] MEDS: Albuterol/Iprat 2.5/0.5MG 3 ML AMPUL.NEB INHALE ×2 (07:16→11:05)
[2020-12-30] MEDS: Acetylcysteine 10 % 400 MG/4 ML VIAL INHALE ×2 (07:16→20:17)
[2020-12-30 07:27] LABS: Glucose, Whole Blood 136 mg/dL (60-115)
[2020-12-30] MEDS: Sertraline HCL 25 MG TABLET PO (07:57)
[2020-12-30] MEDS: Heparin Sodium,Porcine 5,000 UNIT/ML VIAL 5000 UNIT SUBCUT ×2 (07:57→20:53)
[2020-12-30] MEDS: methylPREDNISolone Sod Succ 40 MG/ML VIAL IVPUSH (07:57)
[2020-12-30] MEDS: LORazepam 2 MG/ML VIAL 0.5 MG IVPUSH ×2 (07:58→17:11)
[2020-12-30] MEDS: hydrOXYzine HCL 25 MG TABLET PO ×2 (09:26→20:52)
[2020-12-30 11:21] LABS: Glucose, Whole Blood 237 mg/dL (60-115)
[2020-12-30] MEDS: Insulin Lispro 100 UNIT/ML 3 ML VIAL SUBCUT ×2 (11:25→16:36)
[2020-12-30] MEDS: Acetaminophen 325 MG TABLET 650 MG PO ×2 (11:26→17:33)
--- NOTE | 2020-12-30 11:35 | MHC.CM.PN ---
Per ROUNDS discussion,Patient is not yet medically cleared for dc (High Flow O2, IV Solu Medrol, IV Doxycycline, IV Ativan, pending Psych eval/Anxiety). 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
--- NOTE | 2020-12-30 11:40 | MHC.CLN ---
PT IS MODERATELY MALNOURISHED PT WITH MILDLY DEPLETED SUBCUTANEOUS FAT AND MUSCLE MASS, BMI 17 DIET RX; 1800DM-APPROPRIATE PO INTAKE 50% AVG RECOMMEND ADDING GLUCERNA BID TO INCREASE KCALS SUPPLEMENT TO PROVIDE 474KCALS, 20G PROTEIN MONITOR PO AND WEGHT CLOSELY
[2020-12-30] MEDS: levoFLOXacin 250 MG TABLET PO (12:08)
--- NOTE | 2020-12-30 12:13 | MHC.CARE ---
CARE Team met with Pt with an driveway attendant provide support regarding anxiety. Pt requested anxiety medication. CARE Team informed Pt that t/w would not be able to provide that however would be able to provide referrals for therapy. T/w explained that typically after seeing a therapist 2-3 times then Pt would be able to be seen by a medication prescriber. Pt was understanding of this and agreeable to therapy referral. CARE Team referred Pt to [facility] and a voicemail was left for [facility] regarding therapy options. CARE Team coordinated with JUDI.
--- NOTE | 2020-12-30 13:17 | P.CNPS_ITS ---
History of Present Illness Date of Service: 12/30/20 Chief Complaint: acute on chronic hypoxic resp failure Reason for Consult: Panic Attacks, Anxiety, COPD Requesting physician: Carlo Pascual Discussed with referring provider: Yes Sources of Information: patient interviewed and chart reviewed Additional Sources of Information: CARE Team Consultation. HPI Narrative: 65 yo male with acute on chronic respiratory failure secondary to COPD, Bronchiectasis, baseline O2 3-4L readmitted one day after discharge for anxiety, panic in addition to respiratory symptoms. Hx SYED, DM, COVID-19, HTN, HLD. Sertraline initiated on 12/29. Well supported for anxiety mgt with Lorazepam, Hydroxyzine, Gabapentin. 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 Pt reports interim anxiety and panic at home, sx arise from no where, pt finds he feels he is choking, is unable to clear his throat or relax-everything constricts with resulting SOB. Reports he is not aware of what trials he has completed, and affirms he has not trialed buspirone, fluoxetine, propranolol, mirtazapine, valproate, or any atypical agent. Pt denies alcohol, recreational substance use, nicotine and confirms one to two coffee servings daily. Pt asks for something to put me down. Education provided regarding medication SE and depression of respirations. He verbalized understanding of this potential dilemma. Past Psychiatric History: Denies knowledge of medication trials for anxiety. Medical Evaluation Reviewed: Yes Review of Systems Psychiatric: Reports anxiety, Reports change in appetite, Reports depression, Reports difficulty concentrating, Reports hopelessness, Reports irritability, Reports anhedonia, Reports panic attacks and Reports suicidal ideation (denies) [facility] Medical History (Updated 12/30/20 @ 13:42 by Ashley Shepherd, SCARFING MACHINE OPERATOR) AIHA (autoimmune hemolytic anemia) Anemia Anxiety disorder due to general medical condition with panic attack Asthma Bronchiectasis Bronchiectasis Chronic hypercapnic respiratory failure Chronic hypercapnic respiratory failure Cocaine abuse COPD (chronic obstructive pulmonary disease) COVID-19 virus infection SYED (mycobacterium avium-intracellulare) Moderate protein-calorie malnutrition Pleural effusion Serratia marcescens infection Diagnostics Vital Signs (24Hr): Vital Signs - 24 hr 12/29/20 15:00 12/29/20 15:40 12/29/20 20:00 Temperature 97.4 F 98.5 F Pulse Rate 112 H 110 H 88 Respiratory Rate 18 18 Blood Pressure 94/64 113/64 Pulse Oximetry 94 95 12/29/20 20:13 12/29/20 20:32 12/29/20 21:43 Temperature 97.0 F Pulse Rate 100 110 H Respiratory Rate 21 H 18 Blood Pressure 166/86 H Pulse Oximetry 94 12/29/20 23:30 12/30/20 00:12 12/30/20 03:41 Temperature 97.6 F 98.4 F Pulse Rate 92 107 H Respiratory Rate 18 20 18 Blood Pressure 126/68 140/78 H Pulse Oximetry 93 91 L 12/30/20 04:28 12/30/20 07:04 12/30/20 07:17 Temperature 98.5 F Pulse Rate 113 H 118 H Respiratory Rate 22 H 18 Blood Pressure 113/68 Pulse Oximetry 94 12/30/20 11:06 Temperature Pulse Rate 122 H Respiratory Rate Blood Pressure Pulse Oximetry Body Mass Index 18.1 Labs Results: 12/30/20 04:20 12/30/20 04:20 Labs: Laboratory Results - last 48 hr 12/28/20 12/28/20 12/29/20 16:18 20:38 05:56 WBC 18.2 H RBC 3.63 L Hgb 10.6 L Hct 33.0 L MCV 90.9 MCH 29.2 MCHC 32.1 RDW 16.9 H Plt Count 575 H MPV 9.7 Immature Gran % (Auto) 0.6 H Neut % (Auto) 89.8 H Lymph % (Auto) 2.9 L [place] % (Auto) 6.6 Eos % (Auto) 0.0 Baso % (Auto) 0.1 Lymph # (Auto) 0.5 L [place] # (Auto) 1.2 Eos # (Auto) 0.0 Baso # (Auto) 0.0 Abs Immat Gran (auto) 0.11 H Absolute Neuts (auto) 16.3 H Absolute Nucleated RBC 0.000 Nucleated RBC % (auto) 0.0 Smear Tech's Comments VERIFIED O2 Saturation ABG pH at Pt Temp ABG pCO2 at Pt Temp ABG pO2 at Pt Temp ABG HCO3 ABG Base Excess (Actual) Sodium Potassium Chloride Carbon Dioxide Anion Gap BUN Creatinine Estim Creat Clear Calc Estimated GFR POC Glucose 204 H 147 H Random Glucose Calcium 12/29/20 12/29/2021 05:56 07:21 09:03 WBC RBC Hgb Hct MCV MCH MCHC RDW Plt Count MPV Immature Gran % (Auto) Neut % (Auto) Lymph % (Auto) [place] % (Auto) Eos % (Auto) Baso % (Auto) Lymph # (Auto) [place] # (Auto) Eos # (Auto) Baso # (Auto) Abs Immat Gran (auto) Absolute Neuts (auto) Absolute Nucleated RBC Nucleated RBC % (auto) Smear Tech's Comments O2 Saturation 89.0 ABG pH at Pt Temp 7.49 H ABG pCO2 at Pt Temp 74 H* ABG pO2 at Pt Temp 62 L ABG HCO3 57 H ABG Base Excess (Actual) 28.8 Sodium 132 L Potassium 4.9 Chloride 82 L Carbon Dioxide 43 H* Anion Gap 12 BUN 13 Creatinine 0.51 Estim Creat Clear Calc 96.7 Estimated GFR > 60 POC Glucose 125 H Random Glucose 136 H D Calcium 9.2 12/29/20 12/29/20 12/29/20 11:37 15:52 20:26 WBC RBC Hgb Hct MCV MCH MCHC RDW Plt Count MPV Immature Gran % (Auto) Neut % (Auto) Lymph % (Auto) [place] % (Auto) Eos % (Auto) Baso % (Auto) Lymph # (Auto) [place] # (Auto) Eos # (Auto) Baso # (Auto) Abs Immat Gran (auto) Absolute Neuts (auto) Absolute Nucleated RBC Nucleated RBC % (auto) Smear Tech's Comments O2 Saturation ABG pH at Pt Temp ABG pCO2 at Pt Temp ABG pO2 at Pt Temp ABG HCO3 ABG Base Excess (Actual) Sodium Potassium Chloride Carbon Dioxide Anion Gap BUN Creatinine Estim Creat Clear Calc Estimated GFR POC Glucose 161 H 158 H 126 H Random Glucose Calcium 12/30/20 12/30/20 12/30/20 04:20 04:20 07:18 WBC 20.0 H RBC 3.97 L Hgb 11.3 L Hct 36.0 L MCV 90.7 MCH 28.5 MCHC 31.4 RDW 17.2 H Plt Count 616 H MPV 9.6 Immature Gran % (Auto) Neut % (Auto) Lymph % (Auto) [place] % (Auto) Eos % (Auto) Baso % (Auto) Lymph # (Auto) [place] # (Auto) Eos # (Auto) Baso # (Auto) Abs Immat Gran (auto) Absolute Neuts (auto) Absolute Nucleated RBC 0.000 Nucleated RBC % (auto) 0.0 Smear Tech's Comments O2 Saturation ABG pH at Pt Temp ABG pCO2 at Pt Temp ABG pO2 at Pt Temp ABG HCO3 ABG Base Excess (Actual) Sodium 134 L Potassium 5.0 Chloride 87 L Carbon Dioxide 36 H Anion Gap 16 BUN 16 Creatinine 0.56 Estim Creat Clear Calc 88.0 Estimated GFR > 60 POC Glucose 136 H Random Glucose 146 H Calcium 9.3 12/30/20 11:13 WBC RBC Hgb Hct MCV MCH MCHC RDW Plt Count MPV Immature Gran % (Auto) Neut % (Auto) Lymph % (Auto) [place] % (Auto) Eos % (Auto) Baso % (Auto) Lymph # (Auto) [place] # (Auto) Eos # (Auto) Baso # (Auto) Abs Immat Gran (auto) Absolute Neuts (auto) Absolute Nucleated RBC Nucleated RBC % (auto) Smear Tech's Comments O2 Saturation ABG pH at Pt Temp ABG pCO2 at Pt Temp ABG pO2 at Pt Temp ABG HCO3 ABG Base Excess (Actual) Sodium Potassium Chloride Carbon Dioxide Anion Gap BUN Creatinine Estim Creat Clear Calc Estimated GFR POC Glucose 237 H Random Glucose Calcium Imaging Radiology Impressions: ITS Impressions Chest X-Ray 12/28/20 02:38 IMPRESSION: Redemonstrated chronic findings at the lung apices with scarring and cystic changes. Associated parenchymal opacities appear slightly improved since 12/24/2020. Mental Status Exam Mental Status Exam Patient Appearance: Fatigued Patient Orientation: Person, Place, Time and Situation Level of Consciousness: Awake and Alert Patient Behavior: Appropriate, Talkative and Cooperative Mood Description: Anxious Affect Description: Anxious Patient Cognition Impaired: No Ability to Follow Directions: Good Speech Pattern: Spontaneous Speech Memory Description: Episodic Impaired Hallucinations: None Delusions: Not Present Thought Process: Distracted Thought Content: positive for [place], positive for Circumstantial and positive for Suicidal Ideation (denies) Depressive Symptoms: Increased Anxiety and Increased Fatigue Judgement: Fair Medications Medications Current Medications Generic Name Dose Route Start Last Admin Trade Name Freq PRN Reason Stop Dose Admin Acetaminophen 650 mg 12/28/20 08:18 12/30/20 11:26 Acetaminophen 325 Mg Tablet PO 650 mg Q6H PRN Administration Pain, Mild (Pain Scale 1-3) Acetylcysteine 400 mg 12/29/20 12:30 12/30/20 07:16 Acetylcysteine 10 % 400 Mg/4 Ml Vial INHALE 400 mg RBID [facility] Administration Aspirin 81 mg 12/31/20 09:00 Aspirin Enteric Coated 81 Mg Tablet. PO DAILY [facility] Atorvastatin Calcium 20 mg 12/31/20 21:00 Atorvastatin Calcium 20 Mg Tablet PO BEDTIME [facility] Docusate Sodium 100 mg 12/28/20 08:18 Docusate Sodium 100 Mg Capsule PO DAILY PRN Constipation Ferrous Sulfate 324 mg 12/31/20 09:00 Ferrous Sulfate 324 Mg Tablet. PO DAILY [facility] Fluticasone Propionate 2 spray 12/30/20 11:51 Fluticasone Propionate Nasal 16 Gm [place] NOSTRIL-B DAILY PRN Nasal Congestion Fluticasone/Vilanterol 1 puff 12/30/20 12:00 12/30/20 12:01 Fluticasone/Vilanterol 200/25 Blst.W.Dev INHALE Not Given RDAILY [facility] Gabapentin 300 mg 12/30/20 15:00 Gabapentin 300 Mg Capsule PO TID [facility] Heparin Sodium (Porcine) 5,000 unit 12/28/20 08:00 12/30/20 07:57 Heparin Sodium,Porcine 5,000 Unit/Ml Vial SUBCUT 5,000 unit Q12H [facility] Administration Hydroxyzine HCl 25 mg 12/28/20 11:08 12/30/20 09:26 Hydroxyzine Hcl 25 Mg Tablet PO 25 mg Q6H PRN Administration anxiety/restlessness Doxycycline Hyclate 100 mg/ 250 mls @ 166.67 mls/hr 12/29/20 13:00 12/30/20 12:08 Sodium Chloride IV 166.62 mls/hr Q12H [facility] Administration Insulin Human Lispro 0 unit 12/28/20 07:30 12/30/20 11:25 Insulin Lispro 100 Unit/Ml 3 Ml Vial SUBCUT 4 unit QIDACHS [facility] Administration Protocol Levalbuterol HCl 1.25 mg 12/30/20 12:00 12/30/20 12:03 Levalbuterol Hcl 1.25 Mg/0.5 Ml Vial.Neb INHALE Not Given RQ4H WHILE AWAKE [facility] Levalbuterol HCl 1.25 mg 12/30/20 11:51 Levalbuterol Hcl 1.25 Mg/0.5 Ml Vial.Neb INHALE Q3H PRN Wheezing Levofloxacin 250 mg 12/30/20 12:00 12/30/20 12:08 Levofloxacin 250 Mg Tablet PO 250 mg DAILY [facility] Administration Lorazepam 0.5 mg 12/28/20 15:03 12/30/20 07:58 Lorazepam 2 Mg/Ml Vial IVPUSH 0.5 mg Q6H PRN Administration anxiety/restlessness Methylprednisolone Sodium Succinate 40 mg 12/30/20 09:00 12/30/20 08:44 Methylprednisolone Sod Succ 40 Mg/Ml Vial IVPUSH Not Given DAILY [facility] Montelukast Sodium 10 mg 12/30/20 21:00 Montelukast Sodium 10 Mg Tablet PO BEDTIME [facility] Multivitamins/Vitamin C 1 tab 12/31/20 09:00 Multivitamin Tablet PO DAILY [facility] Ondansetron HCl 4 mg 12/28/20 08:18 Ondansetron Hcl 4 Mg/2 Ml Vial IVPUSH Q8H PRN Nausea and Vomiting Senna 8.6 - 17.2 mg 12/30/20 11:51 Sennosides 8.6 Mg Tablet PO BID PRN Constipation Sertraline HCl 25 mg 12/28/20 15:40 12/30/20 07:57 Sertraline Hcl 25 Mg Tablet PO 25 mg DAILY [facility] Administration Sodium Chloride 3 ml 12/28/20 08:18 12/29/20 21:45 0.9 % Sodium Chloride Flush 3 Ml Syringe IVFLUSH 3 ml QSHIFT [facility] Administration Tiotropium [place] 1 puff 12/31/20 08:00 Tiotropium [place] 18 Mcg Cap.W.Dev INHALE RDAILY [facility] Allergies Allergies Allergy/AdvReac Type Severity Reaction Status Date / Time morphine [MORPHINE] Allergy Mild VOMITING Verified 11/29/20 04:04 Assessment & Plan Assessment & Plan (1) Anxiety disorder due to general medical condition with panic attack: Status: Acute Code(s): F06.4 - Anxiety disorder due to known physiological condition; F41.0 - Panic disorder [episodic paroxysmal anxiety] Recommendations: -Pt has been seen by CARE Team and will be referred for psychotherapy (CBT), mindfulness meditation, visualization -Pt is well covered with medications to assist in sx mgt-Sertraline (just initiated), gabapentin, hydroxyzine, lorazepam. -Added options may include buspirone, propranolol, valproate (low dose), fluoxetine, mirtazapine. -Will add low dose Mirtazapine for trial. Greater than 50% of the session was spent on counseling and/or coordination of care
[2020-12-30] MEDS: Gabapentin 300 MG CAPSULE PO ×2 (14:28→20:57)
[2020-12-30] MEDS: 0.9 % Sodium Chloride Flush 3 ML SYRINGE IVFLUSH ×2 (14:28→20:58)
[2020-12-30 16:17] LABS: Glucose, Whole Blood 298 mg/dL (60-115)
--- NOTE | 2020-12-30 16:24 | HO.PM.IMPN ---
Subjective Subjective Date of Service: 12/30/20 Interval History: the patient was seen and evaluated this morning Laying in bed, anxious, worried about day of and thinking his heart rate is going so fast so he is going to Denies having any fever or chills Had a rough with increased anxiety and feeling of shortness of breath requiring medications No reported other overnight events. Systemic review: No fever, chills but has generalized weakness No chest pain, palpitation Shortness of breath cough No abdominal pain, nausea or vomiting No urinary symptoms No any rash or wounds Physical Exam Vital Signs: Vital Signs: Last Vital Signs Temp 99.7 F 12/30/20 15:47 Pulse 123 H 12/30/20 15:47 Resp 20 12/30/20 15:47 BP 93/56 L 12/30/20 15:47 Pulse Ox 97 12/30/20 15:47 Oxygen Flow Rate 15 12/28/20 02:33 Body Mass Index 18.1 Const: Other: Constitutional : Alert with stimulation, oriented, looks anxious and distress Neck : Normal inspection, Supple Cardiovascular : RRR, S1 S2, no lower extremity edema Respiratory : Decreased bilateral air entry, no crackles, expiratory wheezes no rhonchi, increased work of breathing with anxiety Gastrointestinal: soft, lax, Normal bowel sounds, Non tender Skin : Warm/Dry, Neurological : Alert, No focal deficit Objective Data Current Medications Generic Name Dose Route Start Last Admin Trade Name Freq PRN Reason Stop Dose Admin Acetaminophen 650 mg 12/28/20 08:18 12/30/20 11:26 Acetaminophen 325 Mg Tablet PO 650 mg Q6H PRN Administration Pain, Mild (Pain Scale 1-3) Acetylcysteine 400 mg 12/29/20 12:30 12/30/20 07:16 Acetylcysteine 10 % 400 Mg/4 Ml Vial INHALE 400 mg RBID [facility] Administration Aspirin 81 mg 12/31/20 09:00 Aspirin Enteric Coated 81 Mg Tablet. PO DAILY [facility] Atorvastatin Calcium 20 mg 12/31/20 21:00 Atorvastatin Calcium 20 Mg Tablet PO BEDTIME [facility] Docusate Sodium 100 mg 12/28/20 08:18 Docusate Sodium 100 Mg Capsule PO DAILY PRN Constipation Ferrous Sulfate 324 mg 12/31/20 09:00 Ferrous Sulfate 324 Mg Tablet. PO DAILY [facility] Fluticasone Propionate 2 spray 12/30/20 11:51 Fluticasone Propionate Nasal 16 Gm [place] NOSTRIL-B DAILY PRN Nasal Congestion Fluticasone/Vilanterol 1 puff 12/30/20 12:00 12/30/20 12:01 Fluticasone/Vilanterol 200/25 Blst.W.Dev INHALE Not Given RDAILY [facility] Gabapentin 300 mg 12/30/20 15:00 12/30/20 14:28 Gabapentin 300 Mg Capsule PO 300 mg TID [facility] Administration Guaifenesin/Dextromethorphan 5 ml 12/30/20 16:21 Guaifenesin Dm 100/10/5 Ml 5 Ml Syrup PO Q4H PRN Cough Heparin Sodium (Porcine) 5,000 unit 12/28/20 08:00 12/30/20 07:57 Heparin Sodium,Porcine 5,000 Unit/Ml Vial SUBCUT 5,000 unit Q12H [facility] Administration Hydroxyzine HCl 25 mg 12/28/20 11:08 12/30/20 09:26 Hydroxyzine Hcl 25 Mg Tablet PO 25 mg Q6H PRN Administration anxiety/restlessness Doxycycline Hyclate 100 mg/ 250 mls @ 166.67 mls/hr 12/29/20 13:00 12/30/20 13:57 Sodium Chloride IV Infused Q12H [facility] Infusion Insulin Human Lispro 0 unit 12/28/20 07:30 12/30/20 11:25 Insulin Lispro 100 Unit/Ml 3 Ml Vial SUBCUT 4 unit QIDACHS [facility] Administration Protocol Levalbuterol HCl 1.25 mg 12/30/20 12:00 12/30/20 15:23 Levalbuterol Hcl 1.25 Mg/0.5 Ml Vial.Neb INHALE 1.25 mg RQ4H WHILE AWAKE [facility] Administration Levalbuterol HCl 1.25 mg 12/30/20 11:51 Levalbuterol Hcl 1.25 Mg/0.5 Ml Vial.Neb INHALE Q3H PRN Wheezing Levofloxacin 250 mg 12/30/20 12:00 12/30/20 12:08 Levofloxacin 250 Mg Tablet PO 250 mg DAILY [facility] Administration Lorazepam 0.5 mg 12/28/20 15:03 12/30/20 07:58 Lorazepam 2 Mg/Ml Vial IVPUSH 0.5 mg Q6H PRN Administration anxiety/restlessness Methylprednisolone Sodium Succinate 40 mg 12/30/20 09:00 12/30/20 08:44 Methylprednisolone Sod Succ 40 Mg/Ml Vial IVPUSH Not Given DAILY [facility] Mirtazapine 3.75 mg 12/30/20 21:00 Mirtazapine 7.5 Mg Tablet PO BEDTIME [facility] Mirtazapine 7.5 mg 12/30/20 21:00 Mirtazapine 7.5 Mg Tablet PO BEDTIME [facility] Montelukast Sodium 10 mg 12/30/20 21:00 Montelukast Sodium 10 Mg Tablet PO BEDTIME [facility] Multivitamins/Vitamin C 1 tab 12/31/20 09:00 Multivitamin Tablet PO DAILY [facility] Ondansetron HCl 4 mg 12/28/20 08:18 Ondansetron Hcl 4 Mg/2 Ml Vial IVPUSH Q8H PRN Nausea and Vomiting Senna 8.6 - 17.2 mg 12/30/20 11:51 Sennosides 8.6 Mg Tablet PO BID PRN Constipation Sertraline HCl 25 mg 12/28/20 15:40 12/30/20 07:57 Sertraline Hcl 25 Mg Tablet PO 25 mg DAILY [facility] Administration Sodium Chloride 3 ml 12/28/20 08:18 12/30/20 14:28 0.9 % Sodium Chloride Flush 3 Ml Syringe IVFLUSH 3 ml QSHIFT [facility] Administration Tiotropium [place] 1 puff 12/31/20 08:00 Tiotropium [place] 18 Mcg Cap.W.Dev INHALE RDAILY [facility] Labs CBC & Chem 7: 12/30/20 04:20 12/30/20 04:20 Microbiology Microbiology Results: Microbiology 12/29/20 12:37 Blood - Venous Blood Culture - Preliminary No growth after 24 hours. 12/29/20 12:37 Blood - Venous Blood Culture - Preliminary No growth after 24 hours. 12/29/20 00:16 Sputum - Expectorated Gram Stain - Final 12/29/20 00:16 Sputum - Expectorated Sputum Culture - Preliminary Culture in progress. 12/28/20 03:15 Blood - Venous Blood Culture - Preliminary Staphylococcus species 12/28/20 03:18 Blood - Venous Blood Culture - Preliminary No growth after 48 hours. Assessment and Plan (1) Acute and chronic respiratory failure: Status: Acute (2) COPD (chronic obstructive pulmonary disease): Status: Acute Assessment and Plan: 65 yo with hx of COPD and hypoxic resp failure presents to the hopsital with SOB, cough and sputum production Acute on chronic hypoxic resp failure Secondary to COPD exacerbation, chronic MAC complex Complaining dyspnea, cough and sputum production chest x-ray negative for any acute pneumonia Continue Solu-Medrol 40 IV daily. DuoNeb p.r.n. and scheduled titrate down O2 to baseline as tolerated Pulmonology input appreciated, BiPAP at night, chest physical therapy, pulmonary rehab at discharge Positive blood culture One bottle growing gram-positive cocci in clusters On IV doxycycline Could be contaminant with no signs bacteremia Repeat blood cultures and weight sensitivity Anxiety attacks Started sertraline To use Atarax as needed Psychiatry input appreciated, start using mirtazapine Tachycardia Heart rate sinus in 120s to 130s Likely stress related from dyspnea, anxiety, medications Change nebulizers to Xopenex Leukocytosis Secondary to steroid usage not infection hypertension continue valsartan diabetes will start on low-dose sliding scale diabetic diet continue home insulin DVT prophylaxis: Heparin subQ
[2020-12-30] MEDS: guaiFENesin DM 100/10/5 ML 5 ML SYRUP PO (16:37)
[2020-12-30 20:32] LABS: Glucose, Whole Blood 114 mg/dL (60-115)
[2020-12-30] MEDS: Mirtazapine 7.5 MG TABLET 3.75 MG PO (20:52)
[2020-12-30] MEDS: Montelukast Sodium 10 MG TABLET PO (20:57)
[2020-12-31] VITALS (31 sets, daily range): BP systolic 71–179; BP diastolic 42–97; PULSE 97–160; RESP 16–31; TEMP 36.7–38.1; O2SAT 87–95
[2020-12-31] MEDS: Doxycycline Hyclate 100 MG in 0.9 % Sodium Chloride 250 ML 166.67 MG IV (00:20)
[2020-12-31 04:58] LABS: Hematocrit 36.6 % (42-52); Hemoglobin 11.8 g/dl (14.0-18.0); Mean Corpuscular HGB Conc 32.2 g/dl (31.0-36.0); Mean Corpuscular Hemoglobin 29.1 pg (27.0-33.0); Mean Corpuscular Volume 90.1 fL (80-98); Mean Platelet Volume 9.8 fL (9.4-12.4); Platelet Count 583 X10*3/uL (160-400); Red Blood Count 4.06 X10*6/uL (4.60-5.80); Red Cell Distribution Width 17.4 % (11.0-16.0)
[2020-12-31] MEDS: Acetaminophen 325 MG TABLET 650 MG PO (04:58)
[2020-12-31] MEDS: LORazepam 2 MG/ML VIAL 0.5 MG IVPUSH (05:03)
[2020-12-31 05:07] LABS: White Blood Count 41.1 X10*3/uL (4.8-10.8)
[2020-12-31 05:26] LABS: Anion Gap 17 (12-20); Blood Urea Nitrogen 13 mg/dL (9-16); Calcium 9.1 mg/dL (8.4-10.2); Carbon Dioxide 33 mmol/L (22-29); Chloride 85 mmol/L (96-108); Creatinine Clr Calc Pharmacy 86.5; Estimated Glomerular Filt Rate > 60; Glucose Random 87 mg/dL (60-115); Potassium 4.8 mmol/L (3.3-5.1); Sodium 130 mmol/L (135-145)
[2020-12-31 05:41] LABS: Band Neutrophils Percent 1 % (3-5); Lymphocytes Absolute Manual 0.8 X10*3/uL (0.6-4.8); Lymphocytes Percent Manual 2 % (20-40); Monocytes Absolute Manual 0.8 X10*3/uL (0.0-1.2); Monocytes Percent Manual 2 % (2-11); Neutrophils Absolute Manual 39.5 X10*3/uL (2.2-7.9); Neutrophils Percent Manual 95 % (45-73)
[2020-12-31] MEDS: Piperacillin Sodium/Tazobactam 3.375 GM in 0.9 % Sodium Chloride 50 ML IV ×3 (05:41→17:03)
[2020-12-31 05:42] LABS: Large Platelet PRESENT; Microcytosis 1+ (5-14) /OIF; Platelet Estimate INCREASED (NORMAL); Platelet Morphology Comment NOTED; RBC Morphology NOTED; Toxic Vacuolation PRESENT
--- NOTE | 2020-12-31 05:47 | PM.EVENT ---
Event Note Date of Service: 12/31/20 Event Note: pt developed fever, sinus tachycardia and tachypnea work up for sepsis initiated has elevated leukocytosis which may be 2/2 steroids labs drawn on levofloxacin and doxy levo switched to IV zosyn blood cultures, Lactic acid UA and chest xray ordered
[2020-12-31] MEDS: Lactated Ringers 500 ML 999 ML IV (05:50)
[2020-12-31 06:18] LABS: Appearance Urine CLEAR; Color Urine YELLOW; Glucose Urine UA NEG (NEG); Leukocyte Esterase Urine NEG (NEG); Nitrite Urine NEG (NEG); Specific Gravity - Urine 1.015 (1.005-1.025); Urine Blood NEG (NEG); Urine Ketones NEG (NEG); Urine Protein NEG (NEG-TRACE)
[2020-12-31 06:27] LABS: Lactic Acid 1.1 mmol/L (0.5-2.0)
[2020-12-31 07:10] LABS: Glucose, Whole Blood 107 mg/dL (60-115)
[2020-12-31] MEDS: Acetylcysteine 10 % 400 MG/4 ML VIAL INHALE (07:53)
[2020-12-31] MEDS: 0.9 % Sodium Chloride 1,000 ML 999 ML IVCONT (07:56)
[2020-12-31] MEDS: 0.9 % Sodium Chloride Flush 3 ML SYRINGE IVFLUSH ×3 (07:56→20:14)
[2020-12-31] MEDS: methylPREDNISolone Sod Succ 40 MG/ML VIAL IVPUSH (08:05)
--- NOTE | 2020-12-31 08:05 | P.PNIM_ITS ---
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 He has been readmitted for acute on chronic respiratory failure and is being treated with bronchodilators, antibiotics and Oxgyen and BiPAP as needed. He decompensated this morning with Fever 100.5, hypotension with SBP in 50 to 60, tachycardic heart rate up in 140 and developpinging increase work of breathing. He has received 1500 of fluid bolus. He is alert however, is warm but unable to get BP myself. Labs this shows increase WBC to 41K from 20K, lactic acid is normal, UA is normal, CXR sgiws Increased patchy left basilar opacity which could represent atelectasis or pneu monia. Aspiration also possible. Zosyn and Vancomycin are added this morning and will stopp Doxycyline. I discussed the case with Dr. Lara and he will be transfered to ICU Review of Systems Gen: + fever Resp: + sob, no cough CV: no chest, +KHAN, leg edema GI: No n/v, no abd pain Neuro: No confusion Physical Exam Vital Signs: Vital Signs: Last Vital Signs Temp 99.3 F 12/31/20 07:33 Pulse 129 H 12/31/20 07:54 Resp 16 12/31/20 07:33 BP 90/57 L 12/31/20 05:45 Pulse Ox 91 L 12/31/20 07:33 Oxygen Flow Rate 15 12/28/20 02:33 Body Mass Index 18.1 Const: Other: Constitutional Awake and Alert, mild to mod resp distress Neck Supple, No lymphadenopathy, No JVD Cardiovascular RRR, tachy No M/R/G, S1 S2, No S3 S4, trace pedal edema Respiratory rales at bases, early accessory muslce use, get tired easily with minmal talk Gastrointestinal Non tender, Non-distended Skin No rash Neurological Alert & oriented x3 Psychological Appropriate affect Objective Data Current Medications Generic Name Dose Route Start Last Admin Trade Name Freq PRN Reason Stop Dose Admin Acetaminophen 650 mg 12/28/20 08:18 12/31/20 04:58 Acetaminophen 325 Mg Tablet PO 650 mg Q6H PRN Administration Pain, Mild (Pain Scale 1-3) Acetylcysteine 400 mg 12/29/20 12:30 12/31/20 07:53 Acetylcysteine 10 % 400 Mg/4 Ml Vial INHALE 400 mg RBID ON LICENSE OF [facility] Administration Aspirin 81 mg 12/31/20 09:00 Aspirin Enteric Coated 81 Mg Tablet. PO DAILY ON LICENSE OF [facility] Atorvastatin Calcium 20 mg 12/31/20 21:00 Atorvastatin Calcium 20 Mg Tablet PO BEDTIME ON LICENSE OF [facility] Docusate Sodium 100 mg 12/28/20 08:18 Docusate Sodium 100 Mg Capsule PO DAILY PRN Constipation Ferrous Sulfate 324 mg 12/31/20 09:00 Ferrous Sulfate 324 Mg Tablet. PO DAILY ON LICENSE OF [facility] Fluticasone Propionate 2 spray 12/30/20 11:51 Fluticasone Propionate Nasal 16 Gm [place] NOSTRIL-B DAILY PRN Nasal Congestion Fluticasone/Vilanterol 1 puff 12/30/20 12:00 12/30/20 12:01 Fluticasone/Vilanterol 200/25 Blst.W.Dev INHALE Not Given RDAILY ON LICENSE OF [facility] Gabapentin 300 mg 12/30/20 15:00 12/30/20 20:57 Gabapentin 300 Mg Capsule PO 300 mg TID ON LICENSE OF [facility] Administration Guaifenesin/Dextromethorphan 5 ml 12/30/20 16:21 12/30/20 16:37 Guaifenesin Dm 100/10/5 Ml 5 Ml Syrup PO 5 ml Q4H PRN Administration Cough Heparin Sodium (Porcine) 5,000 unit 12/28/20 08:00 12/30/20 20:53 Heparin Sodium,Porcine 5,000 Unit/Ml Vial SUBCUT 5,000 unit Q12H ON LICENSE OF [facility] Administration Hydroxyzine HCl 25 mg 12/28/20 11:08 12/30/20 20:52 Hydroxyzine Hcl 25 Mg Tablet PO 25 mg Q6H PRN Administration anxiety/restlessness Doxycycline Hyclate 100 mg/ 250 mls @ 166.67 mls/hr 12/29/20 13:00 12/31/20 02:06 Sodium Chloride IV Infused Q12H ON LICENSE OF [facility] Infusion Piperacillin Sod/Tazobactam 50 mls @ 100 mls/hr 12/31/20 06:00 12/31/20 07:05 Sod 3.375 gm/ Sodium Chloride IV Infused Q6H ALFONSO Infusion Sodium Chloride 1,000 mls @ 999 mls/hr 12/31/20 07:45 12/31/20 07:56 Ns IVCONT 12/31/20 08:45 999 mls/hr .Q1H1M ALFONSO Administration Vancomycin HCl 500 mg/ Sodium 110 mls @ 110 mls/hr 12/31/20 08:00 Chloride IV Q12H ALFONSO Insulin Human Lispro 0 unit 12/28/20 07:30 12/31/20 07:52 Insulin Lispro 100 Unit/Ml 3 Ml Vial SUBCUT Not Given QIDACHS ON LICENSE OF [facility] Protocol Levalbuterol HCl 1.25 mg 12/30/20 12:00 12/31/20 07:53 Levalbuterol Hcl 1.25 Mg/0.5 Ml Vial.Neb INHALE 1.25 mg RQ4H WHILE AWAKE ALFONSO Administration Levalbuterol HCl 1.25 mg 12/30/20 11:51 Levalbuterol Hcl 1.25 Mg/0.5 Ml Vial.Neb INHALE Q3H PRN Wheezing Lorazepam 0.5 mg 12/28/20 15:03 12/31/20 05:03 Lorazepam 2 Mg/Ml Vial IVPUSH 0.5 mg Q6H PRN Administration anxiety/restlessness Methylprednisolone Sodium Succinate 40 mg 12/30/20 09:00 12/31/20 08:05 Methylprednisolone Sod Succ 40 Mg/Ml Vial IVPUSH 40 mg DAILY ALFONSO Administration Mirtazapine 3.75 mg 12/30/20 21:00 12/30/20 20:52 Mirtazapine 7.5 Mg Tablet PO 3.75 mg BEDTIME ALFONSO Administration Montelukast Sodium 10 mg 12/30/20 21:00 12/30/20 20:57 Montelukast Sodium 10 Mg Tablet PO 10 mg BEDTIME ALFONSO Administration Multivitamins/Vitamin C 1 tab 12/31/20 09:00 Multivitamin Tablet PO DAILY ALFONSO Ondansetron HCl 4 mg 12/28/20 08:18 Ondansetron Hcl 4 Mg/2 Ml Vial IVPUSH Q8H PRN Nausea and Vomiting Pharmacy Consult 1 each 12/31/20 07:53 Consult Rx Vancomycin Dosing MISCELLANE DAILY PRN Consult order Senna 8.6 - 17.2 mg 12/30/20 11:51 Sennosides 8.6 Mg Tablet PO BID PRN Constipation Sertraline HCl 25 mg 12/28/20 15:40 12/30/20 07:57 Sertraline Hcl 25 Mg Tablet PO 25 mg DAILY ALFONSO Administration Sodium Chloride 3 ml 12/28/20 08:18 12/31/20 07:56 0.9 % Sodium Chloride Flush 3 Ml Syringe IVFLUSH 3 ml QSHIFT ALFONSO Administration Tiotropium [place] 1 puff 12/31/20 08:00 Tiotropium [place] 18 Mcg Cap.W.Dev INHALE RDAILY ON LICENSE OF [facility] Labs CBC & Chem 7: 12/31/20 04:17 12/31/20 04:17 Microbiology Microbiology Results: Microbiology 12/28/20 03:15 Blood - Venous Blood Culture - Final Coag negative Staphylococcus 12/29/20 12:37 Blood - Venous Blood Culture - Preliminary No growth after 24 hours. 12/29/20 12:37 Blood - Venous Blood Culture - Preliminary No growth after 24 hours. 12/29/20 00:16 Sputum - Expectorated Gram Stain - Final 12/29/20 00:16 Sputum - Expectorated Sputum Culture - Preliminary Culture in progress. 12/28/20 03:18 Blood - Venous Blood Culture - Preliminary No growth after 48 hours. 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 He has been readmitted for acute on chronic respiratory failure and is being treated with bronchodilators, antibiotics and Oxgyen and BiPAP as needed. He decompensated this morning with Fever 100.5, hypotension with SBP in 50 to 60, tachycardic heart rate up in 140 and developpinging increase work of breathing. He has received 1500 of fluid bolus. He is alert however, is warm but unable to get BP myself. Labs this shows increase WBC to 41K from 20K, lactic acid is normal, UA is normal, CXR sgiws Increased patchy left basilar opacity which could represent atelectasis or pneu monia. Aspiration also possible. Zosyn and Vancomycin are added this morning and will stopp Doxycyline. I discussed the case with Dr. Lara and he will be transfered to ICU Sepsis likely respiratory source--Broad spec Abx with Zosyn and Vanco, IV fluid to maintain BP, he might ultimately need vasopressors. To be transfered to ICU for increased level of care beyond IMC--I disucssed with Dr. Kwon Acute on chronic hypoxic resp failure of multifacorial etiology--COPD, SYED with chronic bronchiectasis, PNA, r/o covid. Treat with bronchodialtors, IV steroid, BiPAP as needed--he will accept mec hanical ventilation. Positive blood culture--this was contamination of coag negative staph, new c ultures pending today Anxiety attacks Started sertraline To use Atarax as needed Psychiatry input appreciated, start using mirtazapine Tachycardia Heart rate sinus in 120s to 130s Likely stress related from dyspnea, anxiety,and now sepsis Use Xopenex for nebs, and treat other underlying issues Leukocytosis--likely from combination of steroid and infection, addresing undelying issues, check c dif if diarrha hypertension continue valsartan diabetes--likely from steroid, continue SSI Code status has been discussed with him on multiple occasions and although hospice may be appropriate for him he wants to remains full code
[2020-12-31 08:15] LABS: ABG Base Excess 14.3 mmol/L; ABG HCO3 41 mmol/L (22-26); ABG pCO2 61 mmHg (32-45); ABG pCO2 TC 62 mmHg (32-45); ABG pH 7.43 (7.35-7.45); ABG pH TC 7.42 (7.35-7.45); ABG pO2 71 mmHg (83-108); ABG pO2 TC 73 (83-108)
--- NOTE | 2020-12-31 08:24 | PC.NURSE ---
Sinus tach on tele. Patient maintaining HR of 130-140s. Candy Decorator at bedside. Patient alert and oriented, denies any chest pain or palpitations. BP 112/79. O2 92% on bipap. RR 22. Temp 100.5. Dr Chappell notified, stat labs and chest xray ordered. PRN Tylenol given for fever. Two new IVs placed, #20 in left forearm and a #22 in the right hand. Critical WBC of 41.1. Dr Chappell notified and ordered IV Zosyn. Gave PRN IV Ativan for anxiety. Retook vitals: HR maintaining 140-150s. BP 90/57. O2 95% on bipap. RR 31. Dr Chappell notified, ordered 500ml bolus of LR. Patient still alert + oriented, and denying any chest pain or palpitations at this time. Patient on continuous tele and continuous O2 monitor. High fall risk protocol in place. Telesitter in room. IV Zosyn complete. Will recheck vitals after bolus.
--- NOTE | 2020-12-31 08:25 | PC.NURSE ---
Pt manual SBP with doppler was 54 this morning after 500ml LR bolus. This RN made Dr. Penaloza aware. Pt given 1L NS bolus and transferred to ICU. This RN gave report to KAYCE Dial.
[2020-12-31] MEDS: Metoprolol Tartrate 5 MG/5 ML VIAL IVPUSH (08:45)
[2020-12-31] MEDS: Albumin Human 25 % 100 ML IV ×2 (08:52→09:48)
[2020-12-31] MEDS: fentaNYL citrate/PF 100 MCG/2 ML VIAL 50 MCG IVPUSH (08:55)
[2020-12-31 09:04] LABS: Glucose, Whole Blood 129 mg/dL (60-115)
--- NOTE | 2020-12-31 09:05 | MHC.CM.PN ---
Patient transfer to ICU.
[2020-12-31 09:40] LABS: ABG Refer to POC result
[2020-12-31 09:46] LABS: COVID-19 Test Negative (Negative); IDNOW Serial# 9DD0AD1C
[2020-12-31] MEDS: vancomycin HCL 500 MG in 0.9 % Sodium Chloride 100 ML 110 MG IV ×2 (09:48→20:13)
[2020-12-31] MEDS: Heparin Sodium,Porcine 5,000 UNIT/ML VIAL 5000 UNIT SUBCUT ×2 (09:48→20:13)
--- NOTE | 2020-12-31 10:43 | PC.NURSE ---
Pt transfered to ICU at 0830 HR 150-160, BP 179/98 T 98.2, c/o 10/10 upper back pain, RR 35-40 using accessory muscles. Pt A&Ox3, anxious. 5mg IVP lopressor given with good effect, HR now 108. Fentanyl 50mcg given for WOB, RR went from 40 to 20, tried BIPAP/CPAP with good effect, on NC needs 5L/min for SaO2 to remain >88%. Currently on highflow at 45L/min FiO2 45%, lungs dim inspiratory wheezing with coarse crackless in bases. BP low after fentanyl, 80/50 MAP goal >50 per MD. Albumin given 50g total. Occitan speaking only. Corking Machine Operator utilized. Bed locked and in lowest position, high fowlers. Call santoro in reach, urinal on side rail.
[2020-12-31 12:19] LABS: Glucose, Whole Blood 123 mg/dL (60-115)
--- NOTE | 2020-12-31 13:10 | P.PNCC_ITS ---
Subjective Subjective Date of Service: 12/31/20 Interval History: 65-year-old gentleman with underlying history of supplemental oxygen dependent 2-3 L COPD, CO2 retain, bronchiectasis with multiple pneumonic exacerbations, underlying chronic mycobacterium avium pulmonary infection intolerant of eradication regimen, admitted on 12/28/2020 with another pneumonic laceration of his underlying bronchiectasis. Patient has been treated with broad-spectrum antibiotics, her also developed progressive hypoxemia requiring BiPAP support and was transferred to intensive care unit on 12/31/2020. In intensive care unit patient has been titrated off BiPAP to high-flow nasal cannula and his broad-spectrum antibiotic regimen was continued. Physical Exam Vital Signs: Vital Signs: Last Vital Signs Temp 98.2 F 12/31/20 10:00 Pulse 102 H 12/31/20 12:00 Resp 21 H 12/31/20 12:00 BP 89/55 L 12/31/20 12:00 Pulse Ox 92 12/31/20 12:00 Oxygen Flow Rate 15 12/28/20 02:33 Body Mass Index 18.1 Const: General: no acute distress and lethargic (Arousable and then alert) Nutritional Appearance: cachectic Orientation/consciousness: lethargic (Arousable and then alert) Eyes: Sclerae: sclerae normal EOM: EOMs intact bilaterally Neck: Neck: Yes no lymphadenopathy, Yes trachea midline and Yes supple Resp: Effort & Inspection: normal respiratory effort and no respiratory distress Auscultation: clear to auscultation bilaterally Cardio: Rate: tachycardic Rhythm: regular rhythm Heart sounds: no gallops, no murmurs and no rubs GI: Palpation (GI): Soft to palpation and Other GI palpation findings present ( Nontender) Auscultation: normal bowel sounds Extrem: General: Yes no pedal edema, No clubbing and No cyanosis Objective Data Labs CBC & Chem 7: 12/31/20 04:17 12/31/20 04:17 Labs: Laboratory Results - last 24 hr 12/30/20 12/30/20 12/31/20 16:12 20:28 04:17 WBC 41.1 H* RBC 4.06 L Hgb 11.8 L Hct 36.6 L MCV 90.1 MCH 29.1 MCHC 32.2 RDW 17.4 H Plt Count 583 H MPV 9.8 Absolute Nucleated RBC 0.000 Nucleated RBC % (auto) 0.0 Neutrophils % (Manual) 95 H Band Neutrophils % 1 L Lymphocytes % (Manual) 2 L Monocytes % (Manual) 2 Abs Neuts (Manual) 39.5 H Lymphocytes # (Manual) 0.8 Monocytes # (Manual) 0.8 Toxic Vacuolation PRESENT Platelet Estimate INCREASED Large Platelets PRESENT Plt Morphology Comment NOTED RBC Morphology NOTED Microcytosis 1+ (5-14) Smear Path Review SEE NOTE O2 Saturation ABG pH at Pt Temp ABG pH (Temp Correct) ABG pCO2 at Pt Temp ABG pCO2 (Temp Corrct ABG pO2 at Pt Temp ABG pO2 (Temp Correct ABG HCO3 ABG Base Excess (Actual) Sodium Potassium Chloride Carbon Dioxide Anion Gap BUN Creatinine Estim Creat Clear Calc Estimated GFR POC Glucose 298 H 114 Random Glucose Lactic Acid Calcium Urine Color Urine Appearance Urine pH Ur Specific Burt Urine Protein Urine Glucose (UA) Urine Ketones Urine Blood Urine Nitrite Ur Leukocyte Esterase COVID-19 (LINDA) COVID-19 [employer] 12/31/20 12/31/20 12/31/20 04:17 05:40 06:00 WBC RBC Hgb Hct MCV MCH MCHC RDW Plt Count MPV Absolute Nucleated RBC Nucleated RBC % (auto) Neutrophils % (Manual) Band Neutrophils % Lymphocytes % (Manual) Monocytes % (Manual) Abs Neuts (Manual) Lymphocytes # (Manual) Monocytes # (Manual) Toxic Vacuolation Platelet Estimate Large Platelets Plt Morphology Comment RBC Morphology Microcytosis Smear Path Review O2 Saturation ABG pH at Pt Temp ABG pH (Temp Correct) ABG pCO2 at Pt Temp ABG pCO2 (Temp Corrct ABG pO2 at Pt Temp ABG pO2 (Temp Correct ABG HCO3 ABG Base Excess (Actual) Sodium 130 L Potassium 4.8 Chloride 85 L Carbon Dioxide 33 H Anion Gap 17 BUN 13 Creatinine 0.57 Estim Creat Clear Calc 86.5 Estimated GFR > 60 POC Glucose Random Glucose 87 D Lactic Acid 1.1 Calcium 9.1 Urine Color YELLOW Urine Appearance CLEAR Urine pH 7.0 Ur Specific Burt 1.015 Urine Protein NEG Urine Glucose (UA) NEG Urine Ketones NEG Urine Blood NEG Urine Nitrite NEG Ur Leukocyte Esterase NEG COVID-19 (LINDA) COVID-19 [employer] 12/31/20 12/31/20 12/31/20 07:06 08:08 09:01 WBC RBC Hgb Hct MCV MCH MCHC RDW Plt Count MPV Absolute Nucleated RBC Nucleated RBC % (auto) Neutrophils % (Manual) Band Neutrophils % Lymphocytes % (Manual) Monocytes % (Manual) Abs Neuts (Manual) Lymphocytes # (Manual) Monocytes # (Manual) Toxic Vacuolation Platelet Estimate Large Platelets Plt Morphology Comment RBC Morphology Microcytosis Smear Path Review O2 Saturation 90.0 ABG pH at Pt Temp 7.43 ABG pH (Temp Correct) 7.42 ABG pCO2 at Pt Temp 61 H* ABG pCO2 (Temp Corrct 62 H* ABG pO2 at Pt Temp 71 L ABG pO2 (Temp Correct 73 L ABG HCO3 41 H ABG Base Excess (Actual) 14.3 Sodium Potassium Chloride Carbon Dioxide Anion Gap BUN Creatinine Estim Creat Clear Calc Estimated GFR POC Glucose 107 129 H Random Glucose Lactic Acid Calcium Urine Color Urine Appearance Urine pH Ur Specific Burt Urine Protein Urine Glucose (UA) Urine Ketones Urine Blood Urine Nitrite Ur Leukocyte Esterase COVID-19 (LINDA) COVID-19 [employer] 12/31/20 12/31/20 09:08 11:17 WBC RBC Hgb Hct MCV MCH MCHC RDW Plt Count MPV Absolute Nucleated RBC Nucleated RBC % (auto) Neutrophils % (Manual) Band Neutrophils % Lymphocytes % (Manual) Monocytes % (Manual) Abs Neuts (Manual) Lymphocytes # (Manual) Monocytes # (Manual) Toxic Vacuolation Platelet Estimate Large Platelets Plt Morphology Comment RBC Morphology Microcytosis Smear Path Review O2 Saturation ABG pH at Pt Temp ABG pH (Temp Correct) ABG pCO2 at Pt Temp ABG pCO2 (Temp Corrct ABG pO2 at Pt Temp ABG pO2 (Temp Correct ABG HCO3 ABG Base Excess (Actual) Sodium Potassium Chloride Carbon Dioxide Anion Gap BUN Creatinine Estim Creat Clear Calc Estimated GFR POC Glucose 123 H Random Glucose Lactic Acid Calcium Urine Color Urine Appearance Urine pH Ur Specific Burt Urine Protein Urine Glucose (UA) Urine Ketones Urine Blood Urine Nitrite Ur Leukocyte Esterase COVID-19 (LINDA) Negative COVID-19 Clin Com See Note Microbiology Microbiology Results: Microbiology 12/29/20 00:16 Sputum - Expectorated Gram Stain - Final 12/29/20 00:16 Sputum - Expectorated Sputum Culture - Preliminary Gram negative john 12/28/20 03:15 Blood - Venous Blood Culture - Final Coag negative Staphylococcus 12/29/20 12:37 Blood - Venous Blood Culture - Preliminary No growth after 24 hours. 12/29/20 12:37 Blood - Venous Blood Culture - Preliminary No growth after 24 hours. 12/28/20 03:18 Blood - Venous Blood Culture - Preliminary No growth after 48 hours. Progress Note: A&P Assessment and plan (1) COPD (chronic obstructive pulmonary disease): Status: Acute Assessment and Plan: Assessment: 65-year-old gentleman with underlying chronic SYED, bronchiectasis with multiple pneumonic exacerbation, supplemental oxygen at 2 L dependent COPD, admitted with acute on chronic hypoxic respiratory failure secondary to pneumonic exacerbation of underlying bronchiectasis and COPD, briefly requiring BiPAP support. Plan: Neuro: No acute issues. Cardiac: No acute issues. Pulmonary: Acute on chronic hypoxic and hypercapnic respiratory failure secondary to pneumonia exacerbation of underlying bronchiectasis. Titrated off BiPAP. Continue to titrate down to home level of supplemental oxygen which is 2 L continuous flow. Maintain O2 saturation of 88-92%, not higher than 93% secondary to underlying CO2 retention tendency. Renal: No acute issues. Endo: No acute issues. GI: No acute issues. ID: Cultures are pending. Continue on Zosyn. Heme/Onc: No acute issues. Psych: No acute issues. Miscellaneous: No acute issues. Prophylaxis: Heparin, does not require GI prophylaxis Diet: Regular Critical care time spent: 60 minutes (2) Moderate protein-calorie malnutrition: Status: Acute (3) Acute on chronic respiratory failure with hypoxia and hypercapnia: Status: Acute (4) Supplemental oxygen dependent: Status: Acute (5) Bronchiectasis: Status: Acute (6) Pneumonia: Status: Acute Critical Care Time Critical Care Time (minutes): 60
[2020-12-31 16:32] LABS: Glucose, Whole Blood 197 mg/dL (60-115)
[2020-12-31] MEDS: Insulin Lispro 100 UNIT/ML 3 ML VIAL SUBCUT ×2 (16:36→20:23)
[2020-12-31 20:23] LABS: Glucose, Whole Blood 222 mg/dL (60-115)
[2020-12-31] MEDS: Docusate Sodium 100 MG CAPSULE PO (20:25)
[2021-01-01] VITALS (37 sets, daily range): BP systolic 80–110; BP diastolic 48–65; PULSE 102–144; RESP 15–35; TEMP 36.7–37.4; O2SAT 86–96
[2021-01-01] MEDS: Piperacillin Sodium/Tazobactam 3.375 GM in 0.9 % Sodium Chloride 50 ML IV ×5 (00:21→23:29)
[2021-01-01] MEDS: 0.9 % Sodium Chloride Flush 3 ML SYRINGE IVFLUSH ×4 (00:25→23:24)
[2021-01-01] MEDS: Acetaminophen 325 MG TABLET 650 MG PO (01:03)
[2021-01-01 05:33] LABS: Basophils Absolute Auto 0.1 X10*3/uL (0.0-0.2); Basophils Percent Auto 0.3 % (0-2); Hematocrit 30.5 % (42-52); Hemoglobin 9.7 g/dl (14.0-18.0); Imm Gran Abs Auto 0.54 X10*3/uL (0.00-0.03); Imm Gran Pct Auto 1.4 % (0.0-0.4); Lymphocytes Absolute Auto 0.6 X10*3/uL (1.2-4.9); Lymphocytes Percent Auto 1.4 % (20-40); MANUAL DIFF FLAG SCAN; Mean Corpuscular HGB Conc 31.8 g/dl (31.0-36.0); Mean Corpuscular Hemoglobin 29.2 pg (27.0-33.0); Mean Corpuscular Volume 91.9 fL (80-98); Mean Platelet Volume 9.4 fL (9.4-12.4); Monocytes Absolute Auto 1.6 X10*3/uL (0.1-1.2); Neutrophils Absolute Auto 36.7 X10*3/uL (2.0-8.3); Neutrophils Percent Auto 92.9 % (45-73); Platelet Count 458 X10*3/uL (160-400); Red Blood Count 3.32 X10*6/uL (4.60-5.80); Red Cell Distribution Width 17.3 % (11.0-16.0); SCAN SMEAR FLAG 1
[2021-01-01 05:34] LABS: VBG HCO3 41 mmol/L (22-26); VBG pCO2 52 mmHg; VBG pO2 59 mmHg
[2021-01-01 05:35] LABS: White Blood Count 39.5 X10*3/uL (4.8-10.8)
[2021-01-01 05:42] LABS: Venous Blood Gas Refer to POC result
[2021-01-01 05:57] LABS: SLIDE REVIEW VERIFIED
[2021-01-01 06:02] LABS: Alanine Aminotransferase 16 U/L (0-40); Albumin Level 3.3 g/dL (3.5-5.0); Alkaline Phosphatase 81 U/L (39-117); Anion Gap 13 (12-20); Aspartate Amino Transferase 13 U/L (5-37); Bilirubin Total 0.6 mg/dL (0.0-1.0); Blood Urea Nitrogen 18 mg/dL (9-16); Carbon Dioxide 34 mmol/L (22-29); Chloride 93 mmol/L (96-108); Creatinine Clr Calc Pharmacy 94.8; Estimated Glomerular Filt Rate > 60; Glucose Random 115 mg/dL (60-115); Magnesium 1.9 mg/dL (1.6-2.6); Potassium 3.8 mmol/L (3.3-5.1); Sodium 136 mmol/L (135-145); Total Protein 5.7 g/dL (6.5-8.0)
--- NOTE | 2021-01-01 06:02 | PC.NURSE ---
Shift eval 3a-7a: Patient tolerating cpap 8, 40%. Attempted to take off cpap after 6am, did not tolerate high flow. Put back on CPAP promptly. RT came to bedside.
[2021-01-01 07:51] LABS: Glucose, Whole Blood 121 mg/dL (60-115)
[2021-01-01] MEDS: fentaNYL citrate/PF 100 MCG/2 ML VIAL 25 MCG IVPUSH (07:58)
[2021-01-01] MEDS: Heparin Sodium,Porcine 5,000 UNIT/ML VIAL 5000 UNIT SUBCUT ×2 (08:01→19:54)
[2021-01-01] MEDS: vancomycin HCL 500 MG in 0.9 % Sodium Chloride 100 ML 110 MG IV (08:02)
[2021-01-01] MEDS: Metoprolol Tartrate 5 MG/5 ML VIAL IVPUSH (10:08)
[2021-01-01] MEDS: Albuterol/Iprat 2.5/0.5MG 3 ML AMPUL.NEB INHALE ×2 (10:15→19:51)
--- NOTE | 2021-01-01 10:32 | MHC.CLN ---
F/U PO INTAKE 50% AVG DIET RX; 1800DM-APPROPRIATE PT RECEIVING GLUCERNA BID TO INCREASE KCALS SUPPLEMENT TO PROVIDE [id number], 20G PROTEIN MONITOR PO AND WEGHT CLOSELY
--- NOTE | 2021-01-01 10:57 | P.CDIC_ITS ---
[facility] Concurrent Query Service Date: 01/01/21 Documentation Clarification: Please clarify if you are treating a proba ble/suspected/likely or confirmed: PRESENT ON ARRIVAL/Continuation of documentation within the medical record: Sepsis, POA Severe sepsis due to pneumonia/COPD exacerbation/Bronchiectasis with acute on chronic hypoxic/hypercapnia respiratory failure Please specify if known Provider Response: Other Other Diagnosis: Sepsis, present on admission, otherwise without severe sepsis or septic shock. Hypotension is related to requirements for sedatives. PLEASE DO NOT DELETE/MODIFY EXISTING CONTENT Additional information is needed in order to code to the highest accuracy and appropriate Severity of Illness (SOI). Please clarify the information noted below in your progress notes and discharge summary. Risk Factors/Clinical Indicators/Treatments PN 12/31 - This morning Temp 100.5 hypotensive w SBP in 50 to 60's, Tachydardic hr up to 140 increased work at breathing 1500 of fluid bolus WBC 41 from 21K, ? aspiration, continue Zosyn, oxygen/ICU transfer PN 12/31 - Sepsis likely respiratory source - ICU transfer for possible vasopressor support. ICU 12/31 - Acute on chronic respiratory failure w hypoxic and hypercapnia, bronchiectasis, pneumonia. Titrated off BIPAP CDS: Carole Chirinos CCS, [facility] Contact Number: [phone] Please Review the information above and exercise your independent professional judgment in responding to the query. If you concur, pleas document in the PROGRESS NOTES and DISCHARGE SUMMARY. If you do not agree with the query, please document in the query above. THIS QUERY IS PART OF THE PERMANENT MEDICAL RECORD
[2021-01-01 11:28] LABS: Glucose, Whole Blood 119 mg/dL (60-115)
[2021-01-01] MEDS: Docusate Sodium 100 MG CAPSULE PO ×2 (11:36→19:54)
[2021-01-01] MEDS: Aspirin Enteric Coated 81 MG TABLET.DR PO (11:36)
[2021-01-01] MEDS: Ferrous Sulfate 324 MG TABLET.DR PO (11:37)
[2021-01-01] MEDS: chlordiazePOXIDE HCl 5 MG CAPSULE 10 MG PO ×2 (12:44→19:54)
--- NOTE | 2021-01-01 14:44 | P.PNCC_ITS ---
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 Patient has been treated with broad-spectrum antibiotics, her also developed progressive hypoxemia requiring BiPAP support and was transferred to intensive care unit on 12/31/2020. He continues on broad-spectrum antibiotic coverage and requires noninvasive positive pressure ventilation support on and off. No events overnight. Physical Exam Vital Signs: Vital Signs: Last Vital Signs Temp 98.7 F 01/01/21 09:10 Pulse 125 H 01/01/21 14:00 Resp 21 H 01/01/21 14:17 BP 93/51 L 01/01/21 14:00 Pulse Ox 96 01/01/21 14:00 Oxygen Flow Rate 15 12/28/20 02:33 Body Mass Index 18.1 Const: General: no acute distress, alert and awake Nutritional Appearance: malnourished Eyes: Sclerae: sclerae normal EOM: EOMs intact bilaterally Neck: Neck: Yes no lymphadenopathy, Yes trachea midline and Yes supple Resp: Effort & Inspection: normal respiratory effort and no respiratory distress Auscultation: crackles (Diffuse bilateral) Cardio: Rate: tachycardic Rhythm: regular rhythm Heart sounds: no gallops, no murmurs and no rubs GI: Palpation (GI): Soft to palpation and Other GI palpation findings present ( Nontender) Auscultation: normal bowel sounds Extrem: General: Yes no pedal edema, No clubbing and No cyanosis Objective Data Labs CBC & Chem 7: 01/01/21 05:24 01/01/21 05:24 Labs: Laboratory Results - last 24 hr 12/31/20 12/31/20 01/01/21 16:25 20:19 05:24 WBC 39.5 H* RBC 3.32 L Hgb 9.7 L Hct 30.5 L MCV 91.9 MCH 29.2 MCHC 31.8 RDW 17.3 H Plt Count 458 H MPV 9.4 Immature Gran % (Auto) 1.4 H Neut % (Auto) 92.9 H Lymph % (Auto) 1.4 L [place] % (Auto) 4.0 Eos % (Auto) 0.0 Baso % (Auto) 0.3 Lymph # (Auto) 0.6 L [place] # (Auto) 1.6 H Eos # (Auto) 0.0 Baso # (Auto) 0.1 Abs Immat Gran (auto) 0.54 H Absolute Neuts (auto) 36.7 H Absolute Nucleated RBC 0.000 Nucleated RBC % (auto) 0.0 Smear Tech's Comments VERIFIED VBG pH VBG pCO2 VBG pO2 VBG HCO3 VBG O2 Saturation VBG Base Excess Sodium Potassium Chloride Carbon Dioxide Anion Gap BUN Creatinine Estim Creat Clear Calc Estimated GFR POC Glucose 197 H 222 H Random Glucose Calcium Phosphorus Magnesium Total Bilirubin AST ALT Alkaline Phosphatase Total Protein Albumin 01/01/21 01/01/21 01/01/21 05:24 05:28 07:48 WBC RBC Hgb Hct MCV MCH MCHC RDW Plt Count MPV Immature Gran % (Auto) Neut % (Auto) Lymph % (Auto) [place] % (Auto) Eos % (Auto) Baso % (Auto) Lymph # (Auto) [place] # (Auto) Eos # (Auto) Baso # (Auto) Abs Immat Gran (auto) Absolute Neuts (auto) Absolute Nucleated RBC Nucleated RBC % (auto) Smear Tech's Comments VBG pH 7.50 H VBG pCO2 52 VBG pO2 59 VBG HCO3 41 H VBG O2 Saturation 89.0 VBG Base Excess TNP Sodium 136 Potassium 3.8 D Chloride 93 L Carbon Dioxide 34 H Anion Gap 13 BUN 18 H Creatinine 0.52 Estim Creat Clear Calc 94.8 Estimated GFR > 60 POC Glucose 121 H Random Glucose 115 Calcium 9.0 Phosphorus 3.0 Magnesium 1.9 Total Bilirubin 0.6 AST 13 D ALT 16 Alkaline Phosphatase 81 D Total Protein 5.7 L Albumin 3.3 L 01/01/21 11:24 WBC RBC Hgb Hct MCV MCH MCHC RDW Plt Count MPV Immature Gran % (Auto) Neut % (Auto) Lymph % (Auto) [place] % (Auto) Eos % (Auto) Baso % (Auto) Lymph # (Auto) [place] # (Auto) Eos # (Auto) Baso # (Auto) Abs Immat Gran (auto) Absolute Neuts (auto) Absolute Nucleated RBC Nucleated RBC % (auto) Smear Tech's Comments VBG pH VBG pCO2 VBG pO2 VBG HCO3 VBG O2 Saturation VBG Base Excess Sodium Potassium Chloride Carbon Dioxide Anion Gap BUN Creatinine Estim Creat Clear Calc Estimated GFR POC Glucose 119 H Random Glucose Calcium Phosphorus Magnesium Total Bilirubin AST ALT Alkaline Phosphatase Total Protein Albumin Microbiology Microbiology Results: Microbiology 12/29/20 00:16 Sputum - Expectorated Gram Stain - Final 12/29/20 00:16 Sputum - Expectorated Sputum Culture - Final 12/31/20 05:40 Blood - Venous Blood Culture - Preliminary No growth after 24 hours. 12/31/20 05:47 Blood - Venous Blood Culture - Preliminary No growth after 24 hours. 12/29/20 12:37 Blood - Venous Blood Culture - Preliminary No growth after 48 hours. 12/29/20 12:37 Blood - Venous Blood Culture - Preliminary No growth after 48 hours. 12/28/20 03:15 Blood - Venous Blood Culture - Final Coag negative Staphylococcus 12/28/20 03:18 Blood - Venous Blood Culture - Preliminary No growth after 48 hours. Progress Note: A&P Assessment and plan (1) Bronchiectasis: Status: Acute Assessment and Plan: Assessment: 65-year-old gentleman with underlying chronic SYED, bronchiectasis with multiple pneumonic exacerbation, supplemental oxygen at 2 L dependent COPD, admitted with acute on chronic hypoxic respiratory failure secondary to pneumonic exacerbation of underlying bronchiectasis and COPD, briefly requiring BiPAP support. Plan: Neuro: No acute issues. Cardiac: No acute issues. Pulmonary: Acute on chronic hypoxic and hypercapnic respiratory failure secondary to pneumonia exacerbation of underlying bronchiectasis. On and off BiPAP. Continue to titrate down to home level of supplemental oxygen which is 2 L continuous flow. Maintain O2 saturation of 88-92%, not higher than 93% secondary to underlying CO2 retention tendency. Results of CT chest from today reviewed - bilateral pneumonia with worsening left basilar infiltrate and a right upper lobe abscess formation, will require minimum of 4 weeks of antibacterial therapy. Renal: No acute issues. Endo: No acute issues. GI: No acute issues. ID: Cultures are pending. Continue on Zosyn and vancomycin. Heme/Onc: No acute issues. Psych: No acute issues. Miscellaneous: No acute issues. Prophylaxis: Heparin, does not require GI prophylaxis Diet: Regular Critical care time spent: 60 minutes (2) COPD (chronic obstructive pulmonary disease): Status: Acute (3) Moderate protein-calorie malnutrition: Status: Acute (4) Acute on chronic respiratory failure with hypoxia and hypercapnia: Status: Acute (5) Anxiety disorder due to general medical condition with panic attack: Status: Acute (6) Pulmonary abscess: Status: Acute (7) Pneumonia: Status: Acute Critical Care Time Critical Care Time (minutes): 60
[2021-01-01 16:15] LABS: Glucose, Whole Blood 205 mg/dL (60-115)
[2021-01-01] MEDS: Insulin Lispro 100 UNIT/ML 3 ML VIAL SUBCUT (16:39)
[2021-01-01 19:35] LABS: Vancomycin Trough 4.1 mcg/mL (10.0-20.0)
[2021-01-01] MEDS: Tobramycin Sulfate 80 MG/2 ML VIAL 300 MG INHALE (20:02)
[2021-01-01] MEDS: vancomycin HCL 750 MG in 0.9 % Sodium Chloride 250 ML 265 MG IV (20:27)
[2021-01-01 20:37] LABS: Glucose, Whole Blood 150 mg/dL (60-115)
[2021-01-02] VITALS (38 sets, daily range): BP systolic 79–151; BP diastolic 44–66; PULSE 87–128; RESP 15–30; TEMP 36.7–37.7; O2SAT 2–97
[2021-01-02] MEDS: Acetaminophen 325 MG TABLET 650 MG PO ×3 (00:34→12:05)
--- NOTE | 2021-01-02 02:57 | PC.NURSE ---
CARE ASSUMED 23:15...AWAKE..ALERT..REMAINS HI-ADRIAN CANNULA...FIO2 TITRATED BETWEEN 40-50% TO MAINTAIN SAO2 GOAL 88-92% PER MD NOTE....LUNGS WITH SCATTERED WHEEZES UPPER MEIER AND FINE CRACKLES LOWER MEIER...PRODUCTIVE COUGH...RAISES THICK YELLOW SPUTUM...BP REMAINS MARGINAL BUT BP GOAL MAP>50 PER REPORT AND PROVIDER...VOIDING YELLOW URINE...TYLENOL PO FOR C/O MID-BACK PAIN WITH COUGHING..DOZING INTERMITTANTLY AFTERWARDS..REMAINS S.TACH HR 120'S AWAKE...PROVIDER PRESENT AND AWARE..CURRENTLY DOZING..S.TACH HR 100'S
[2021-01-02 05:43] LABS: VBG Base Excess 16.1 mmol/L; VBG HCO3 42 mmol/L (22-26); VBG pCO2 59 mmHg; VBG pH 7.46 (7.32-7.43); VBG pO2 63 mmHg
[2021-01-02 05:45] LABS: Venous Blood Gas Refer to POC result
[2021-01-02 06:01] LABS: Hematocrit 30.7 % (42-52); Hemoglobin 9.8 g/dl (14.0-18.0); Mean Corpuscular HGB Conc 31.9 g/dl (31.0-36.0); Mean Corpuscular Hemoglobin 29.3 pg (27.0-33.0); Mean Corpuscular Volume 91.6 fL (80-98); Platelet Count 448 X10*3/uL (160-400); Red Blood Count 3.35 X10*6/uL (4.60-5.80); Red Cell Distribution Width 17.5 % (11.0-16.0)
[2021-01-02 06:03] LABS: White Blood Count 34.7 X10*3/uL (4.8-10.8)
[2021-01-02] MEDS: Piperacillin Sodium/Tazobactam 3.375 GM in 0.9 % Sodium Chloride 50 ML IV ×3 (06:18→17:02)
[2021-01-02 06:24] LABS: Band Neutrophils Percent 20 % (3-5); Monocytes Absolute Manual 2.8 X10*3/uL (0.0-1.2); Monocytes Percent Manual 8 % (2-11); Neutrophils Absolute Manual 31.9 X10*3/uL (2.2-7.9); Neutrophils Percent Manual 72 % (45-73)
[2021-01-02 06:27] LABS: Alanine Aminotransferase 12 U/L (0-40); Albumin Level 2.9 g/dL (3.5-5.0); Alkaline Phosphatase 107 U/L (39-117); Anion Gap 14 (12-20); Aspartate Amino Transferase 12 U/L (5-37); Bilirubin Total 0.7 mg/dL (0.0-1.0); Blood Urea Nitrogen 13 mg/dL (9-16); Calcium 8.8 mg/dL (8.4-10.2); Carbon Dioxide 34 mmol/L (22-29); Chloride 90 mmol/L (96-108); Creatinine Clr Calc Pharmacy 100.6; Estimated Glomerular Filt Rate > 60; Glucose Random 128 mg/dL (60-115); Hypochromasia 1+ (5-14) /OIF; Large Platelet PRESENT; Magnesium 1.8 mg/dL (1.6-2.6); Platelet Estimate SLIGHTLY INCREASED (NORMAL); Platelet Morphology Comment NOTED; Potassium 3.9 mmol/L (3.3-5.1); RBC Morphology NOTED; Sodium 134 mmol/L (135-145); Total Protein 5.2 g/dL (6.5-8.0)
[2021-01-02 07:29] LABS: Glucose, Whole Blood 132 mg/dL (60-115)
[2021-01-02] MEDS: Tobramycin Sulfate 80 MG/2 ML VIAL 300 MG INHALE ×2 (08:01→19:46)
[2021-01-02] MEDS: Albuterol/Iprat 2.5/0.5MG 3 ML AMPUL.NEB INHALE ×3 (08:02→18:37)
[2021-01-02] MEDS: Albumin Human 25 % 100 ML IV ×3 (08:38→20:36)
[2021-01-02] MEDS: 0.9 % Sodium Chloride Flush 3 ML SYRINGE IVFLUSH ×2 (08:39→17:02)
[2021-01-02] MEDS: Heparin Sodium,Porcine 5,000 UNIT/ML VIAL 5000 UNIT SUBCUT ×2 (08:39→20:34)
[2021-01-02] MEDS: chlordiazePOXIDE HCl 5 MG CAPSULE 10 MG PO ×2 (08:40→20:35)
[2021-01-02] MEDS: Ferrous Sulfate 324 MG TABLET.DR PO (08:40)
[2021-01-02] MEDS: Aspirin Enteric Coated 81 MG TABLET.DR PO (08:40)
[2021-01-02] MEDS: vancomycin HCL 750 MG in 0.9 % Sodium Chloride 250 ML 265 MG IV (08:48)
--- NOTE | 2021-01-02 10:01 | MHC.CLN ---
F/U PO INTAKE 50% AVG DIET RX; 1800DM-APPROPRIATE SUPPLEMENT CHANGED FROM GLUCERNA TO ENSURE TID TO INCREASE PO PROTEIN DISCUSSED AT ROUNDS SUPPLEMENT TO PROVIDE 1050KCALS, 60G PROTEIN MONITOR PO, BS AND WEGHT CLOSELY
[2021-01-02] MEDS: Ketorolac Tromethamine 15 MG/ML VIAL IV (10:58)
[2021-01-02 11:38] LABS: Glucose, Whole Blood 152 mg/dL (60-115)
[2021-01-02] MEDS: Insulin Lispro 100 UNIT/ML 3 ML VIAL SUBCUT (11:43)
[2021-01-02] MEDS: fentaNYL citrate/PF 100 MCG/2 ML VIAL 25 MCG IVPUSH ×3 (12:39→18:50)
--- NOTE | 2021-01-02 13:57 | P.PNCC_ITS ---
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 Patient has been treated with broad-spectrum antibiotics, her also developed progressive hypoxemia requiring BiPAP support and was transferred to intensive care unit on 12/31/2020. He continues on broad-spectrum antibiotic coverage and requires noninvasive positive pressure ventilation support on and off. No events overnight. Leukocytosis and dyspnea are improving slowly. Physical Exam Vital Signs: Vital Signs: Last Vital Signs Temp 98.5 F 01/02/21 07:00 Pulse 87 01/02/21 13:00 Resp 23 H 01/02/21 13:00 BP 93/47 L 01/02/21 13:00 Pulse Ox 94 01/02/21 13:00 Oxygen Flow Rate 15 12/28/20 02:33 Body Mass Index 18.1 Const: General: no acute distress, alert and awake Nutritional Appearance: malnourished Eyes: Sclerae: sclerae normal EOM: EOMs intact bilaterally Neck: Neck: Yes no lymphadenopathy, Yes trachea midline and Yes supple Resp: Effort & Inspection: normal respiratory effort and no respiratory distress Auscultation: crackles (Diffuse bilateral) Cardio: Rate: regular rate Rhythm: regular rhythm Heart sounds: no gallops, no murmurs and no rubs GI: Palpation (GI): Soft to palpation and Other GI palpation findings present ( Nontender) Auscultation: normal bowel sounds Extrem: General: Yes no pedal edema, No clubbing and No cyanosis Objective Data Labs CBC & Chem 7: 01/02/21 05:35 01/02/21 05:35 Labs: Laboratory Results - last 24 hr 01/01/21 01/01/21 01/01/21 16:11 18:53 20:31 WBC RBC Hgb Hct MCV MCH MCHC RDW Plt Count MPV Immature Gran % (Auto) Neut % (Auto) Lymph % (Auto) [place] % (Auto) Eos % (Auto) Baso % (Auto) Lymph # (Auto) [place] # (Auto) Eos # (Auto) Baso # (Auto) Abs Immat Gran (auto) Absolute Neuts (auto) Absolute Nucleated RBC Nucleated RBC % (auto) Neutrophils % (Manual) Band Neutrophils % Monocytes % (Manual) Abs Neuts (Manual) Monocytes # (Manual) Platelet Estimate Large Platelets Plt Morphology Comment RBC Morphology Hypochromasia VBG pH VBG pCO2 VBG pO2 VBG HCO3 VBG O2 Saturation VBG Base Excess Sodium Potassium Chloride Carbon Dioxide Anion Gap BUN Creatinine Estim Creat Clear Calc Estimated GFR POC Glucose 205 H 150 H Random Glucose Calcium Phosphorus Magnesium Total Bilirubin AST ALT Alkaline Phosphatase Total Protein Albumin Vancomycin Trough 4.1 L 01/02/21 01/02/21 01/02/21 05:35 05:35 05:37 WBC 34.7 H* RBC 3.35 L Hgb 9.8 L Hct 30.7 L MCV 91.6 MCH 29.3 MCHC 31.9 RDW 17.5 H Plt Count 448 H MPV 10.0 Immature Gran % (Auto) Cancelled Neut % (Auto) Cancelled Lymph % (Auto) Cancelled [place] % (Auto) Cancelled Eos % (Auto) Cancelled Baso % (Auto) Cancelled Lymph # (Auto) Cancelled [place] # (Auto) Cancelled Eos # (Auto) Cancelled Baso # (Auto) Cancelled Abs Immat Gran (auto) Cancelled Absolute Neuts (auto) Cancelled Absolute Nucleated RBC 0.000 Nucleated RBC % (auto) 0.0 Neutrophils % (Manual) 72 Band Neutrophils % 20 H Monocytes % (Manual) 8 Abs Neuts (Manual) 31.9 H Monocytes # (Manual) 2.8 H Platelet Estimate SLIGHTLY INCREASED Large Platelets PRESENT Plt Morphology Comment NOTED RBC Morphology NOTED Hypochromasia 1+ (5-14) VBG pH 7.46 H VBG pCO2 59 VBG pO2 63 VBG HCO3 42 H VBG O2 Saturation 92.0 VBG Base Excess 16.1 Sodium 134 L Potassium 3.9 Chloride 90 L Carbon Dioxide 34 H Anion Gap 14 BUN 13 Creatinine 0.49 L Estim Creat Clear Calc 100.6 Estimated GFR > 60 POC Glucose Random Glucose 128 H Calcium 8.8 Phosphorus 4.0 Magnesium 1.8 Total Bilirubin 0.7 AST 12 ALT 12 Alkaline Phosphatase 107 D Total Protein 5.2 L Albumin 2.9 L Vancomycin Trough 01/02/21 01/02/21 07:23 11:35 WBC RBC Hgb Hct MCV MCH MCHC RDW Plt Count MPV Immature Gran % (Auto) Neut % (Auto) Lymph % (Auto) [place] % (Auto) Eos % (Auto) Baso % (Auto) Lymph # (Auto) [place] # (Auto) Eos # (Auto) Baso # (Auto) Abs Immat Gran (auto) Absolute Neuts (auto) Absolute Nucleated RBC Nucleated RBC % (auto) Neutrophils % (Manual) Band Neutrophils % Monocytes % (Manual) Abs Neuts (Manual) Monocytes # (Manual) Platelet Estimate Large Platelets Plt Morphology Comment RBC Morphology Hypochromasia VBG pH VBG pCO2 VBG pO2 VBG HCO3 VBG O2 Saturation VBG Base Excess Sodium Potassium Chloride Carbon Dioxide Anion Gap BUN Creatinine Estim Creat Clear Calc Estimated GFR POC Glucose 132 H 152 H Random Glucose Calcium Phosphorus Magnesium Total Bilirubin AST ALT Alkaline Phosphatase Total Protein Albumin Vancomycin Trough Microbiology Microbiology Results: Microbiology 01/01/21 10:22 Sputum - Expectorated Gram Stain - Final 01/01/21 10:22 Sputum - Expectorated Sputum Culture - Preliminary Culture in progress. 12/31/20 05:40 Blood - Venous Blood Culture - Preliminary No growth after 48 hours. 12/31/20 05:47 Blood - Venous Blood Culture - Preliminary No growth after 48 hours. 12/28/20 03:18 Blood - Venous Blood Culture - Final No growth after 5 days. 12/29/20 00:16 Sputum - Expectorated Gram Stain - Final 12/29/20 00:16 Sputum - Expectorated Sputum Culture - Final 12/29/20 12:37 Blood - Venous Blood Culture - Preliminary No growth after 48 hours. 12/29/20 12:37 Blood - Venous Blood Culture - Preliminary No growth after 48 hours. 12/28/20 03:15 Blood - Venous Blood Culture - Final Coag negative Staphylococcus Progress Note: A&P Assessment and plan (1) Pulmonary abscess: Status: Acute Assessment and Plan: Assessment: 65-year-old gentleman with underlying chronic SYED, bronchiectasis with multiple pneumonic exacerbation, supplemental oxygen at 2 L dependent COPD, admitted with acute on chronic hypoxic respiratory failure secondary to pneumonic exacerbation of underlying bronchiectasis and COPD, briefly requiring BiPAP support. Plan: Neuro: No acute issues. Cardiac: No acute issues. Pulmonary: Acute on chronic hypoxic and hypercapnic respiratory failure secondary to pneumonic exacerbation of underlying bronchiectasis. On and off BiPAP. Continue to titrate down to home level of supplemental oxygen which is 2 L continuous flow. Maintain O2 saturation of 88-92%, not higher than 93% secondary to underlying CO2 retention tendency. Renal: No acute issues. Endo: No acute issues. GI: No acute issues. ID: Gram-negative pneumonia with pulmonary abscess. Continue on Zosyn and vancomycin, will discontinue and vancomycin in 24 hours if continues to improve. Started on inhaled tobramycin, now with improving leukocytosis and dyspnea. Heme/Onc: No acute issues. Psych: No acute issues. Miscellaneous: No acute issues. Prophylaxis: Heparin, does not require GI prophylaxis Diet: Regular Critical care time spent: 60 minutes (2) Bronchiectasis: Status: Acute (3) Acute and chronic respiratory failure: Status: Acute (4) COPD (chronic obstructive pulmonary disease): Status: Acute (5) Moderate protein-calorie malnutrition: Status: Acute (6) Gram-negative pneumonia: Status: Acute Critical Care Time Critical Care Time (minutes): 60
--- NOTE | 2021-01-02 15:26 | MHC.CM.PN ---
Pt remains in ICU on trials of high flow and NIPPV: continues on IV ATB for pulmonary abscess. Original d/c plan was for a return to home with [employer] and VNA services however, this will depend on his functional abilities once weaned from high O2. CM will request a PT eval once pt is more medically stable to better assess his needs.
--- NOTE | 2021-01-02 15:43 | PC.NURSE ---
Addendum entered by Mohsen Seymour RN 01/02/21 18:34: 1830 Pt SOB, stuggling to inhale, SAO2 dropped to 78% on highflow 45L/min FiO2 45%. MD Jane notified. STAT CXR ordered. Lungs dim all lobes w/ fine crackles. RT notified. Highflow adjusted to 60L/min FiO2 80%. Addendum entered by Mohsen Syemour RN 01/02/21 16:46: Chest PT complete, expectorated large amounts of sputum, went back into resp distresss. Pt sat up tall and performed back percussion, coughed up sputum, fentanyl 25mcg given with good effect. Original Note: Pt A&Ox3, less anxious on librium. C/O 9/10 T6 pain refractory to toradol and tylenol. Effective after 25mcg fentanyl. Pain down to 3/10. at 1525 pt with increased respiratory distress, lung sound worse, increased crackles and less air movement noted. SaO2 down to 82%, aware. RT called to perform chest PT. Pt HAD bm and was moved around, he coughed and expectorated and resp distress started to resolve.
[2021-01-02 16:41] LABS: Glucose, Whole Blood 146 mg/dL (60-115)
[2021-01-02] MEDS: vancomycin HCL 750 MG in 0.9 % Sodium Chloride 250 ML 166.67 MG IV (20:34)
[2021-01-02] MEDS: Docusate Sodium 100 MG CAPSULE PO (20:35)
[2021-01-02] MEDS: Phenylephrine HCL 20 MG in 0.9 % Sodium Chloride 250 ML 217.73 MG IVCONT (21:00)
[2021-01-02] MEDS: propofoL 1,000 MG/100 ML VIAL 5.76 MG IVCONT (21:30)
[2021-01-02] MEDS: fentaNYL citrate/NS 1,000 MCG/100 ML PLAST..BAG 5 MCG IVCONT (21:30)
[2021-01-02 22:09] LABS: Glucose, Whole Blood 136 mg/dL (60-115)
--- NOTE | 2021-01-02 22:11 | W.PM.CCHP ---
Procedures Intubation Intubation Comments: Patient with acute respiratory distress, Hypoxic to the 70s and Tachypneic. Not improving despite administration of fentanyl and CPT. Required emergent intubation with 7.5 cuffed ET tube under glide scope guidance with visualization of vocal cords, without immediate complications. ET tube position verified with Chest XRAY. Sedative: propofol Mg given: 50 ET tube size: 7.5 ET tube uncuffed: No Tube secured depth (cm): 23 Tube secured location: lips Tube placement confirmation: visualized tube passing through cords, equal breath sounds bilaterally, no breath sounds over epigastrium and confirmation by capnometry Patient tolerated procedure: well Intubation complications: none
[2021-01-02 22:13] LABS: ABG Base Excess 11.5 mmol/L; ABG HCO3 42 mmol/L (22-26); ABG pCO2 99 mmHg (32-45); ABG pCO2 TC 101 mmHg (32-45); ABG pH 7.23 (7.35-7.45); ABG pH TC 7.23 (7.35-7.45); ABG pO2 75 mmHg (83-108); ABG pO2 TC 77 (83-108)
--- NOTE | 2021-01-02 22:16 | W.PM.CCHP ---
Procedures Central Line Placement Right IJ: Central Line Comments: Right internal jugular triple lumen central venous catheter placed in usual sterile conditions under ultrasound guidance for appropriate vascular access without immediate complications. Central line position verified with Chest XRAY. Consent for Procedure: Emergent-no informed consent obtained Time out performed: Yes prep: mask, gown and gloves Central line prep: Chlorhexidine scrub Central line lumen inserted: triple Post procedure: sutured in place, good blood return, all ports aspirated, flushed, capped and sterile dressing applied Post procedure x-ray: tip of catheter in good position and no pneumothorax seen Patient tolerated procedure: well Complications: none
--- NOTE | 2021-01-02 22:18 | PM.EVENT ---
Event Note Date of Service: 01/02/21 Event Note: Patient required emergent intubation for acute respiratory distress and hypoxemia. Hypotension is related to sedation for intubation. Will obtain chest x-ray and ABGs.
[2021-01-02] MEDS: propofoL 200 MG/20 ML VIAL 50 MG IVPUSH (22:42)
[2021-01-02] MEDS: fentaNYL citrate/PF 100 MCG/2 ML VIAL 50 MCG IVPUSH (22:42)
[2021-01-03] VITALS (44 sets, daily range): BP systolic 39–146; BP diastolic 17–68; PULSE 106–136; RESP 20–22; TEMP 37.6–38.6; O2SAT 77–96; BMI 18.1
[2021-01-03] MEDS: 0.9 % Sodium Chloride Flush 3 ML SYRINGE IVFLUSH ×4 (00:50→23:28)
[2021-01-03] MEDS: Piperacillin Sodium/Tazobactam 3.375 GM in 0.9 % Sodium Chloride 50 ML IV ×5 (00:50→23:38)
[2021-01-03] MEDS: Albumin Human 25 % 100 ML IV (03:14)
--- NOTE | 2021-01-03 04:35 | PC.NURSE ---
At approximately 2100, pt in respiratory distress- despite CPT and IVP fentanyl, HR 120s, RR 30-40s, accessory muscles used, SpO2 70s maxed on HFNC. Decision to intubate by [employer]. ETT #7.5, advanced to 27 cm at lip. TLC placed to R IJ. OGT/rangel placed. Lines/tubes confirmed by pCXR. Propofol/fentanyl gtts ordered for sedation, titrated for vent synchrony. Levophed gtt titrated to maintain MAP > 50. Frequent high peak pressures, low tidal/minute volumes. Vent settings changed to PCV- f20 Pi 26 PEEP 5 FiO2 50%, Vt 300s Ve 6. LS rhonchorous throughout, large amount of thick yellow/green sputum suctioned via inline. CPT done with RT q4h. Daughter/HCP called and updated of event by J[employer] SOFTWARE ENGINEER.
[2021-01-03 05:27] LABS: VBG Base Excess 12.2 mmol/L; VBG HCO3 41 mmol/L (22-26); VBG pCO2 84 mmHg; VBG pO2 71 mmHg
[2021-01-03 05:41] LABS: Venous Blood Gas Refer to POC result
[2021-01-03] MEDS: Chlorhexidine Gluc Oral Rinse 15 ML MOUTHWASH BUCCAL ×3 (05:41→22:09)
[2021-01-03] MEDS: Pantoprazole Sodium 40 MG/10 ML VIAL IVPUSH (05:41)
[2021-01-03] MEDS: propofoL 1,000 MG/100 ML VIAL 5.76 MG IVCONT ×2 (05:42→17:22)
[2021-01-03] MEDS: fentaNYL citrate/NS 1,000 MCG/100 ML PLAST..BAG 10 MCG IVCONT (05:42)
[2021-01-03] MEDS: Albuterol/Iprat 2.5/0.5MG 3 ML AMPUL.NEB INHALE ×3 (05:43→19:43)
[2021-01-03 05:45] LABS: Basophils Absolute Auto 0.1 X10*3/uL (0.0-0.2); Basophils Percent Auto 0.2 % (0-2); Eosinophils Absolute Auto 0.1 X10*3/uL (0.0-0.4); Eosinophils Percent Auto 0.3 % (0-4); Hematocrit 26.2 % (42-52); Hemoglobin 8.1 g/dl (14.0-18.0); Imm Gran Abs Auto 0.18 X10*3/uL (0.00-0.03); Imm Gran Pct Auto 0.7 % (0.0-0.4); Lymphocytes Absolute Auto 0.7 X10*3/uL (1.2-4.9); Lymphocytes Percent Auto 2.9 % (20-40); MANUAL DIFF FLAG SCAN; Mean Corpuscular HGB Conc 30.9 g/dl (31.0-36.0); Mean Corpuscular Hemoglobin 29.2 pg (27.0-33.0); Mean Corpuscular Volume 94.6 fL (80-98); Mean Platelet Volume 9.8 fL (9.4-12.4); Monocytes Absolute Auto 1.6 X10*3/uL (0.1-1.2); Monocytes Percent Auto 6.2 % (2-11); Neutrophils Absolute Auto 22.6 X10*3/uL (2.0-8.3); Neutrophils Percent Auto 89.7 % (45-73); Platelet Count 409 X10*3/uL (160-400); Red Blood Count 2.77 X10*6/uL (4.60-5.80); Red Cell Distribution Width 17.7 % (11.0-16.0); SCAN SMEAR FLAG 1; White Blood Count 25.2 X10*3/uL (4.8-10.8)
[2021-01-03 06:12] LABS: Albumin Level 3.8 g/dL (3.5-5.0); Anion Gap 14 (12-20); Blood Urea Nitrogen 12 mg/dL (9-16); Calcium 8.7 mg/dL (8.4-10.2); Carbon Dioxide 35 mmol/L (22-29); Chloride 93 mmol/L (96-108); Creatinine Clr Calc Pharmacy 86.5; Estimated Glomerular Filt Rate > 60; Glucose Random 117 mg/dL (60-115); Magnesium 1.9 mg/dL (1.6-2.6); Phosphorus 4.4 mg/dL (2.7-4.5); SLIDE REVIEW VERIFIED; Sodium 138 mmol/L (135-145)
[2021-01-03 07:18] LABS: Glucose, Whole Blood 109 mg/dL (60-115)
[2021-01-03] MEDS: Phenylephrine HCL 20 MG in 0.9 % Sodium Chloride 250 ML 18.14 MG IVCONT (07:37)
[2021-01-03 07:38] LABS: Vancomycin Trough 11.9 mcg/mL (10.0-20.0)
[2021-01-03] MEDS: chlordiazePOXIDE HCl 5 MG CAPSULE 10 MG PO (08:05)
[2021-01-03] MEDS: vancomycin HCL 750 MG in 0.9 % Sodium Chloride 250 ML 265 MG IV (08:05)
[2021-01-03] MEDS: Ferrous Sulfate 324 MG TABLET.DR PO (08:05)
[2021-01-03] MEDS: Aspirin Enteric Coated 81 MG TABLET.DR PO (08:05)
[2021-01-03] MEDS: Docusate Sodium 100 MG CAPSULE PO ×2 (08:05→21:06)
[2021-01-03] MEDS: Heparin Sodium,Porcine 5,000 UNIT/ML VIAL 5000 UNIT SUBCUT ×2 (08:06→20:01)
[2021-01-03] MEDS: Tobramycin Sulfate 80 MG/2 ML VIAL 300 MG INHALE ×2 (08:17→19:53)
--- NOTE | 2021-01-03 09:45 | MHC.CLN ---
F/U PT INTUBATED 01/02 RECOMMEND PROMOTE AT MAX GOAL RATE 50CC/HR WITH 120CC FREE WATER Q SHIFT TO PROVIDE 1200KCALS (1352KCALS WITH SEDATION; 30KCALS/KG), 75G PROTEIN (1.7G/KG), 1367CC TOTAL WATER FROM FORMULA AND FLUSHES (30CC/KG) START AT 20CC/HR AND INCREASE BY 10CC Q 4 HRS UNTIL MAX GOAL IS ACHIEVED MONITOR TOLERANCE, RESIDUALS AND LYTES SEE ALSO CLINICAL NUTRITION ASSESSMENT 01/03/21
--- NOTE | 2021-01-03 10:06 | MHC.CM.PN ---
Patient remains in ICU. On 01/02 intubated/vented due to worsening hypoxia. Patient is from home with [employer] services and [facility]. Continue to monitor for d/c needs.
[2021-01-03] MEDS: Acetaminophen 325 MG TABLET 650 MG PO (10:25)
[2021-01-03 11:14] LABS: Glucose, Whole Blood 87 mg/dL (60-115)
[2021-01-03] MEDS: EPINEPHrine 5 MG in Dextrose 5 % 250 ML 73.44 MG IVCONT (12:18)
--- NOTE | 2021-01-03 14:44 | W.PM.CCHP ---
Procedures Bronchoscopy Consent for Procedure: Emergent-no informed consent obtained Indication: pulmonary toilet Procedure: Emergent bedside bronchoscopy performed for refractory hypoxemia for secretion clearance. Bronchoscope advanced through the tracheobronchial tree via ET tube. Copious amount of mucoid secretions visualized through tracheobronchial tree with clearance of approximately total of 100 cc of mucoid secretions with edematous underlying bronchial mucosa. Also, tracheal bronchomalacia noted. Patient tolerated procedure well with no immediate complications and improvement in oxygenation.
--- NOTE | 2021-01-03 14:47 | PM.CCPN ---
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 Patient has been treated with broad-spectrum antibiotics, her also developed progressive hypoxemia requiring BiPAP support and was transferred to intensive care unit on 12/31/2020. He continues on broad-spectrum antibiotic coverage and requires noninvasive positive pressure ventilation support on and off. Overnight with multiple episodes of mucus plugging resultant increased work of breathing and worsening hypoxemia requiring intubation and ventilatory support. Today requiring emergent bronchoscopy for recurrent mucus plugging and secretion clearance. Critical Care Time (minutes): 60 (Excluding separately billable procedures) Physical Exam Vital Signs: Vital Signs: Last Vital Signs Temp 100.4 F 01/03/21 14:00 Pulse 126 H 01/03/21 14:23 Resp 22 H 01/03/21 14:00 BP 87/57 L 01/03/21 14:00 Pulse Ox 90 L 01/03/21 14:00 Oxygen Flow Rate 15 12/28/20 02:33 Body Mass Index 18.1 Const: General: no acute distress and other (Sedated on the vent) Nutritional Appearance: cachectic Eyes: Sclerae: sclerae normal EOM: EOMs intact bilaterally Neck: Neck: Yes no lymphadenopathy, Yes trachea midline and Yes supple Resp: Auscultation: crackles (Diffuse bilateral) Cardio: Rate: tachycardic Rhythm: regular rhythm Heart sounds: no gallops, no murmurs and no rubs GI: Palpation (GI): Soft to palpation and Other GI palpation findings present ( Nontender) Auscultation: normal bowel sounds Extrem: General: Yes no pedal edema, No clubbing and No cyanosis Objective Data Labs CBC & Chem 7: 01/03/21 05:18 01/03/21 05:18 Labs: Laboratory Results - last 24 hr 01/02/21 01/02/21 01/02/21 16:36 21:54 22:07 WBC RBC Hgb Hct MCV MCH MCHC RDW Plt Count MPV Immature Gran % (Auto) Neut % (Auto) Lymph % (Auto) [place] % (Auto) Eos % (Auto) Baso % (Auto) Lymph # (Auto) [place] # (Auto) Eos # (Auto) Baso # (Auto) Abs Immat Gran (auto) Absolute Neuts (auto) Absolute Nucleated RBC Nucleated RBC % (auto) Smear Tech's Comments O2 Saturation 91.0 ABG pH at Pt Temp 7.23 L ABG pH (Temp Correct) 7.23 L ABG pCO2 at Pt Temp 99 H* ABG pCO2 (Temp Corrct 101 H* ABG pO2 at Pt Temp 75 L ABG pO2 (Temp Correct 77 L ABG HCO3 42 H ABG Base Excess (Actual) 11.5 VBG pH VBG pCO2 VBG pO2 VBG HCO3 VBG O2 Saturation VBG Base Excess Sodium Potassium Chloride Carbon Dioxide Anion Gap BUN Creatinine Estim Creat Clear Calc Estimated GFR POC Glucose 146 H 136 H Random Glucose Calcium Phosphorus Magnesium Albumin Vancomycin Trough 01/03/21 01/03/21 01/03/21 05:18 05:18 05:20 WBC 25.2 H RBC 2.77 L Hgb 8.1 L Hct 26.2 L MCV 94.6 MCH 29.2 MCHC 30.9 L RDW 17.7 H Plt Count 409 H MPV 9.8 Immature Gran % (Auto) 0.7 H Neut % (Auto) 89.7 H Lymph % (Auto) 2.9 L [place] % (Auto) 6.2 Eos % (Auto) 0.3 Baso % (Auto) 0.2 Lymph # (Auto) 0.7 L [place] # (Auto) 1.6 H Eos # (Auto) 0.1 Baso # (Auto) 0.1 Abs Immat Gran (auto) 0.18 H Absolute Neuts (auto) 22.6 H Absolute Nucleated RBC 0.000 Nucleated RBC % (auto) 0.0 Smear Tech's Comments VERIFIED O2 Saturation ABG pH at Pt Temp ABG pH (Temp Correct) ABG pCO2 at Pt Temp ABG pCO2 (Temp Corrct ABG pO2 at Pt Temp ABG pO2 (Temp Correct ABG HCO3 ABG Base Excess (Actual) VBG pH 7.30 L VBG pCO2 84 VBG pO2 71 VBG HCO3 41 H VBG O2 Saturation 91.0 VBG Base Excess 12.2 Sodium 138 Potassium 4.0 Chloride 93 L Carbon Dioxide 35 H Anion Gap 14 BUN 12 Creatinine 0.57 Estim Creat Clear Calc 86.5 Estimated GFR > 60 POC Glucose Random Glucose 117 H Calcium 8.7 Phosphorus 4.4 Magnesium 1.9 Albumin 3.8 D Vancomycin Trough 01/03/21 01/03/21 01/03/21 06:58 07:14 11:10 WBC RBC Hgb Hct MCV MCH MCHC RDW Plt Count MPV Immature Gran % (Auto) Neut % (Auto) Lymph % (Auto) [place] % (Auto) Eos % (Auto) Baso % (Auto) Lymph # (Auto) [place] # (Auto) Eos # (Auto) Baso # (Auto) Abs Immat Gran (auto) Absolute Neuts (auto) Absolute Nucleated RBC Nucleated RBC % (auto) Smear Tech's Comments O2 Saturation ABG pH at Pt Temp ABG pH (Temp Correct) ABG pCO2 at Pt Temp ABG pCO2 (Temp Corrct ABG pO2 at Pt Temp ABG pO2 (Temp Correct ABG HCO3 ABG Base Excess (Actual) VBG pH VBG pCO2 VBG pO2 VBG HCO3 VBG O2 Saturation VBG Base Excess Sodium Potassium Chloride Carbon Dioxide Anion Gap BUN Creatinine Estim Creat Clear Calc Estimated GFR POC Glucose 109 87 Random Glucose Calcium Phosphorus Magnesium Albumin Vancomycin Trough 11.9 Microbiology Microbiology Results: Microbiology 12/29/20 12:37 Blood - Venous Blood Culture - Final No growth after 5 days. 12/29/20 12:37 Blood - Venous Blood Culture - Final No growth after 5 days. 01/01/21 10:22 Sputum - Expectorated Gram Stain - Final 01/01/21 10:22 Sputum - Expectorated Sputum Culture - Preliminary Culture in progress. 12/31/20 05:40 Blood - Venous Blood Culture - Preliminary No growth after 48 hours. 12/31/20 05:47 Blood - Venous Blood Culture - Preliminary No growth after 48 hours. 12/28/20 03:18 Blood - Venous Blood Culture - Final No growth after 5 days. 12/29/20 00:16 Sputum - Expectorated Gram Stain - Final 12/29/20 00:16 Sputum - Expectorated Sputum Culture - Final 12/28/20 03:15 Blood - Venous Blood Culture - Final Coag negative Staphylococcus Progress Note: A&P Assessment and plan (1) Gram-negative pneumonia: Status: Acute Assessment and Plan: Assessment: 65-year-old gentleman with underlying chronic SYED, bronchiectasis with multiple pneumonic exacerbation, supplemental oxygen at 2 L dependent COPD, admitted with acute on chronic hypoxic respiratory failure secondary to pneumonic exacerbation of underlying bronchiectasis and COPD, now requiring ventilatory support Plan: Neuro: No acute issues. Cardiac: No acute issues. Pulmonary: Acute on chronic hypoxic and hypercapnic respiratory failure secondary to pneumonic exacerbation of underlying bronchiectasis. Overnight with multiple episodes of mucus plugging and hypoxemia requiring intubation and ventilatory support. Today requiring emergent bronchoscopy performed mucus plugging/secretion clearance. Continue to titrate off ventilatory support as tolerated. Renal: No acute issues. Endo: No acute issues. GI: No acute issues. ID: Gram-negative pneumonia with pulmonary abscess. Continue on Zosyn and inhaled tobramycin, now with improving leukocytosis. Heme/Onc: No acute issues. Psych: No acute issues. Miscellaneous: No acute issues. Prophylaxis: Heparin, ppi Diet: Tube feeds Critical care time spent: 60 minutes (2) Pulmonary abscess: Status: Acute (3) Anxiety disorder due to general medical condition with panic attack: Status: Acute (4) Acute and chronic respiratory failure: Status: Acute (5) COPD (chronic obstructive pulmonary disease): Status: Acute (6) Moderate protein-calorie malnutrition: Status: Acute (7) Bronchiectasis: Status: Acute (8) SYED (mycobacterium avium-intracellulare): Status: Acute Critical Care Time Critical Care Time (minutes): 60
[2021-01-03 15:11] LABS: Glucose, Whole Blood 124 mg/dL (60-115)
[2021-01-03] MEDS: fentaNYL citrate/NS 1,000 MCG/100 ML PLAST..BAG 5 MCG IVCONT (19:18)
[2021-01-03] MEDS: Insulin Lispro 100 UNIT/ML 3 ML VIAL SUBCUT (21:10)
[2021-01-03 21:14] LABS: Glucose, Whole Blood 210 mg/dL (60-115)
[2021-01-03] MEDS: EPINEPHrine 5 MG in Dextrose 5 % 250 ML 29.38 MG IVCONT (23:23)
[2021-01-04] VITALS (54 sets, daily range): BP systolic 61–206; BP diastolic 39–79; PULSE 51–229; RESP 0–30; TEMP 37.2–38.1; O2SAT 84–98
[2021-01-04 02:11] LABS: Glucose, Whole Blood 237 mg/dL (60-115)
[2021-01-04] MEDS: Insulin Lispro 100 UNIT/ML 3 ML VIAL SUBCUT (02:12)
[2021-01-04] MEDS: propofoL 1,000 MG/100 ML VIAL 8.64 MG IVCONT (03:06)
--- NOTE | 2021-01-04 03:56 | PC.NURSE ---
pt sedated under the influences of propofol and fentanyl infusions for ventilatory management. pt had emergence with propofol at 20mcg/kg/min. with awakening pt attempting to localize hands toward face and endotracheal tube. propofol has been increased to 30mcg/kg/min with resolution of wakefulness. complexion pale. cachetic and frail in appearance. skin turgor has decreased elastic rebound. transorally intubated and mechanically ventilated with #7.5 ett at 27 cm antoine. mechanically ventilated with the following settings pc mode rate 22 insp pressure 18 fio2 50% peep 10 cm. breath sounds coarse with insp. wheezes and rhonchi throughout upper lobes. breath sounds diminished within lower lobes. sa02 93-95%.suctioned for small amounts of thick cream colored sputum. pressor support necessary to achieve b/p guidelines. levophed at 0.8mcg/kg/min and epinephrine at 0.2 mcg/kg/min. pocs have increased into the 200s and have been tx with insulin sliding scale. ecg displays st apical hr 110-120 bpm. although with stimulation, apical hr can increase into the 140s bpm. when turning pt side to side, he vomited tube feedings. ogt immediately placed to continuos wall suction, with 550 of tube feedings aspirated from stomach. property portfolio officer sue lugo notified of vomiting. tube feedings to be held over night. rangel catheter patent and draining yellow urine. u/o 30-75ml/hr
[2021-01-04 05:18] LABS: VBG Base Excess 4.9 mmol/L; VBG HCO3 32 mmol/L (22-26); VBG pCO2 66 mmHg; VBG pO2 54 mmHg
[2021-01-04 05:27] LABS: Hematocrit 27.9 % (42-52); Hemoglobin 8.7 g/dl (14.0-18.0); Mean Corpuscular HGB Conc 31.2 g/dl (31.0-36.0); Mean Corpuscular Hemoglobin 29.8 pg (27.0-33.0); Mean Corpuscular Volume 95.5 fL (80-98); Mean Platelet Volume 9.4 fL (9.4-12.4); Platelet Count 454 X10*3/uL (160-400); Red Blood Count 2.92 X10*6/uL (4.60-5.80); Red Cell Distribution Width 18.1 % (11.0-16.0)
[2021-01-04 05:30] LABS: White Blood Count 33.2 X10*3/uL (4.8-10.8)
[2021-01-04] MEDS: Chlorhexidine Gluc Oral Rinse 15 ML MOUTHWASH BUCCAL ×2 (05:35→13:48)
[2021-01-04] MEDS: Piperacillin Sodium/Tazobactam 3.375 GM in 0.9 % Sodium Chloride 50 ML IV ×4 (05:35→23:58)
[2021-01-04] MEDS: Pantoprazole Sodium 40 MG/10 ML VIAL IVPUSH (05:35)
[2021-01-04 05:41] LABS: Venous Blood Gas Refer to POC result
[2021-01-04 05:47] LABS: Band Neutrophils Percent 26 % (3-5); Lymphocytes Absolute Manual 0.7 X10*3/uL (0.6-4.8); Lymphocytes Percent Manual 2 % (20-40); Monocytes Absolute Manual 1.3 X10*3/uL (0.0-1.2); Monocytes Percent Manual 4 % (2-11); Neutrophils Absolute Manual 31.2 X10*3/uL (2.2-7.9); Neutrophils Percent Manual 68 % (45-73)
[2021-01-04 05:50] LABS: Dohle Bodies PRESENT; Hypochromasia 1+ (5-14) /OIF; Macrocytosis 1+ (5-14) /OIF; Platelet Estimate SLIGHTLY INCREASED (NORMAL); Platelet Morphology Comment NORMAL; RBC Morphology NOTED; Toxic Granulation PRESENT; Toxic Vacuolation PRES
[2021-01-04 06:00] LABS: Alanine Aminotransferase 10 U/L (0-40); Albumin Level 3.2 g/dL (3.5-5.0); Alkaline Phosphatase 126 U/L (39-117); Anion Gap 14 (12-20); Aspartate Amino Transferase 16 U/L (5-37); Bilirubin Total 0.7 mg/dL (0.0-1.0); Blood Urea Nitrogen 22 mg/dL (9-16); Calcium 8.2 mg/dL (8.4-10.2); Carbon Dioxide 31 mmol/L (22-29); Chloride 97 mmol/L (96-108); Creatinine Clr Calc Pharmacy 29.8; Estimated Glomerular Filt Rate 42; Glucose Random 143 mg/dL (60-115); Magnesium 1.8 mg/dL (1.6-2.6); Phosphorus 4.8 mg/dL (2.7-4.5); Potassium 4.3 mmol/L (3.3-5.1); Sodium 138 mmol/L (135-145); Total Protein 5.4 g/dL (6.5-8.0)
[2021-01-04 07:07] LABS: Glucose, Whole Blood 126 mg/dL (60-115)
[2021-01-04] MEDS: Albuterol/Iprat 2.5/0.5MG 3 ML AMPUL.NEB INHALE ×3 (07:36→21:06)
[2021-01-04] MEDS: Tobramycin Sulfate 80 MG/2 ML VIAL 300 MG INHALE (07:36)
[2021-01-04] MEDS: Heparin Sodium,Porcine 5,000 UNIT/ML VIAL 5000 UNIT SUBCUT (07:40)
[2021-01-04] MEDS: 0.9 % Sodium Chloride Flush 3 ML SYRINGE IVFLUSH ×3 (07:40→23:54)
[2021-01-04] MEDS: EPINEPHrine 5 MG in Dextrose 5 % 250 ML 29.38 MG IVCONT (07:42)
[2021-01-04] MEDS: Magnesium Sulfate/H2O 2 GM/50 ML PIGGYBACK IV (09:15)
[2021-01-04] MEDS: Albumin Human 25 % 100 ML 200 ML IV ×3 (09:15→20:43)
[2021-01-04] MEDS: Lactulose 20 GM/30 ML SOLUTION 30 GM PO (09:16)
[2021-01-04 09:25] LABS: Glucose, Whole Blood 142 mg/dL (60-115)
--- NOTE | 2021-01-04 09:52 | PM.CCPN ---
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 Patient has been treated with broad-spectrum antibiotics, her also developed progressive hypoxemia requiring BiPAP support and was transferred to intensive care unit on 12/31/2020. Required intubation and ventilatory support on 01/02/2021 and bronchoscopy for mucous plugs clearance on 01/03/2021. No events overnight. Critical Care Time (minutes): 60 Physical Exam Vital Signs: Vital Signs: Last Vital Signs Temp 99.3 F 01/04/21 09:00 Pulse 115 H 01/04/21 09:00 Resp 22 H 01/04/21 09:00 BP 130/73 01/04/21 09:47 Pulse Ox 92 01/04/21 09:00 Oxygen Flow Rate 15 12/28/20 02:33 Body Mass Index 18.1 Const: General: no acute distress Nutritional Appearance: cachectic Eyes: Sclerae: sclerae normal EOM: EOMs intact bilaterally Neck: Neck: Yes no lymphadenopathy, Yes trachea midline and Yes supple Resp: Auscultation: crackles (Right upper lobe) Cardio: Rate: tachycardic Rhythm: regular rhythm Heart sounds: no gallops, no murmurs and no rubs GI: Palpation (GI): Soft to palpation and Other GI palpation findings present ( Nontender) Auscultation: normal bowel sounds Extrem: General: Yes no pedal edema, No clubbing and No cyanosis Objective Data Labs CBC & Chem 7: 01/04/21 05:12 01/04/21 05:12 Labs: Laboratory Results - last 24 hr 01/03/21 01/03/21 01/03/21 11:10 15:07 21:07 WBC RBC Hgb Hct MCV MCH MCHC RDW Plt Count MPV Immature Gran % (Auto) Neut % (Auto) Lymph % (Auto) [place] % (Auto) Eos % (Auto) Baso % (Auto) Lymph # (Auto) [place] # (Auto) Eos # (Auto) Baso # (Auto) Abs Immat Gran (auto) Absolute Neuts (auto) Absolute Nucleated RBC Nucleated RBC % (auto) Neutrophils % (Manual) Band Neutrophils % Lymphocytes % (Manual) Monocytes % (Manual) Abs Neuts (Manual) Lymphocytes # (Manual) Monocytes # (Manual) Toxic Granulation Toxic Vacuolation Dohle Bodies Platelet Estimate Plt Morphology Comment RBC Morphology Hypochromasia Macrocytosis VBG pH VBG pCO2 VBG pO2 VBG HCO3 VBG O2 Saturation VBG Base Excess Sodium Potassium Chloride Carbon Dioxide Anion Gap BUN Creatinine Estim Creat Clear Calc Estimated GFR POC Glucose 87 124 H 210 H Random Glucose Calcium Phosphorus Magnesium Total Bilirubin AST ALT Alkaline Phosphatase Total Protein Albumin 01/04/21 01/04/21 01/04/21 02:08 05:12 05:12 WBC 33.2 H* RBC 2.92 L Hgb 8.7 L Hct 27.9 L MCV 95.5 MCH 29.8 MCHC 31.2 RDW 18.1 H Plt Count 454 H MPV 9.4 Immature Gran % (Auto) Cancelled Neut % (Auto) Cancelled Lymph % (Auto) Cancelled [place] % (Auto) Cancelled Eos % (Auto) Cancelled Baso % (Auto) Cancelled Lymph # (Auto) Cancelled [place] # (Auto) Cancelled Eos # (Auto) Cancelled Baso # (Auto) Cancelled Abs Immat Gran (auto) Cancelled Absolute Neuts (auto) Cancelled Absolute Nucleated RBC 0.000 Nucleated RBC % (auto) 0.0 Neutrophils % (Manual) 68 Band Neutrophils % 26 H Lymphocytes % (Manual) 2 L Monocytes % (Manual) 4 Abs Neuts (Manual) 31.2 H Lymphocytes # (Manual) 0.7 Monocytes # (Manual) 1.3 H Toxic Granulation PRESENT Toxic Vacuolation PRES Dohle Bodies PRESENT Platelet Estimate SLIGHTLY INCREASED Plt Morphology Comment NORMAL RBC Morphology NOTED Hypochromasia 1+ (5-14) Macrocytosis 1+ (5-14) VBG pH VBG pCO2 VBG pO2 VBG HCO3 VBG O2 Saturation VBG Base Excess Sodium 138 Potassium 4.3 Chloride 97 Carbon Dioxide 31 H Anion Gap 14 BUN 22 H D Creatinine 1.65 H Estim Creat Clear Calc 29.8 Estimated GFR 42 POC Glucose 237 H Random Glucose 143 H Calcium 8.2 L Phosphorus 4.8 H Magnesium 1.8 Total Bilirubin 0.7 AST 16 ALT 10 Alkaline Phosphatase 126 H Total Protein 5.4 L Albumin 3.2 L 01/04/21 01/04/21 01/04/21 05:12 07:04 09:20 WBC RBC Hgb Hct MCV MCH MCHC RDW Plt Count MPV Immature Gran % (Auto) Neut % (Auto) Lymph % (Auto) [place] % (Auto) Eos % (Auto) Baso % (Auto) Lymph # (Auto) [place] # (Auto) Eos # (Auto) Baso # (Auto) Abs Immat Gran (auto) Absolute Neuts (auto) Absolute Nucleated RBC Nucleated RBC % (auto) Neutrophils % (Manual) Band Neutrophils % Lymphocytes % (Manual) Monocytes % (Manual) Abs Neuts (Manual) Lymphocytes # (Manual) Monocytes # (Manual) Toxic Granulation Toxic Vacuolation Dohle Bodies Platelet Estimate Plt Morphology Comment RBC Morphology Hypochromasia Macrocytosis VBG pH 7.30 L VBG pCO2 66 VBG pO2 54 VBG HCO3 32 H VBG O2 Saturation 85.0 VBG Base Excess 4.9 Sodium Potassium Chloride Carbon Dioxide Anion Gap BUN Creatinine Estim Creat Clear Calc Estimated GFR POC Glucose 126 H 142 H Random Glucose Calcium Phosphorus Magnesium Total Bilirubin AST ALT Alkaline Phosphatase Total Protein Albumin Microbiology Microbiology Results: Microbiology 01/01/21 10:22 Sputum - Expectorated Gram Stain - Final 01/01/21 10:22 Sputum - Expectorated Sputum Culture - Preliminary Pseudomonas aeruginosa 12/29/20 12:37 Blood - Venous Blood Culture - Final No growth after 5 days. 12/29/20 12:37 Blood - Venous Blood Culture - Final No growth after 5 days. 12/31/20 05:40 Blood - Venous Blood Culture - Preliminary No growth after 48 hours. 12/31/20 05:47 Blood - Venous Blood Culture - Preliminary No growth after 48 hours. 12/28/20 03:18 Blood - Venous Blood Culture - Final No growth after 5 days. 12/29/20 00:16 Sputum - Expectorated Gram Stain - Final 12/29/20 00:16 Sputum - Expectorated Sputum Culture - Final 12/28/20 03:15 Blood - Venous Blood Culture - Final Coag negative Staphylococcus Progress Note: A&P Assessment and plan (1) SYED (mycobacterium avium-intracellulare): Status: Acute Assessment and Plan: Assessment: 65-year-old gentleman with underlying chronic SYED, bronchiectasis with multiple pneumonic exacerbation, supplemental oxygen at 2 L dependent COPD, admitted with acute on chronic hypoxic respiratory failure secondary to pneumonic exacerbation of underlying bronchiectasis and COPD, now requiring ventilatory support Plan: Neuro: No acute issues. Cardiac: No acute issues. Pulmonary: Acute on chronic hypoxic and hypercapnic respiratory failure secondary to pneumonic exacerbation of underlying bronchiectasis. Continue to titrate off ventilatory support as tolerated. Renal: Acute kidney injury. Non oliguric. Continue to monitor renal indices and urine output. Endo: No acute issues. GI: No acute issues. ID: Gram-negative pneumonia with pulmonary abscess. Continue on Zosyn and inhaled tobramycin. Heme/Onc: No acute issues. Psych: No acute issues. Miscellaneous: No acute issues. Prophylaxis: Heparin, ppi Diet: Tube feeds Critical care time spent: 60 minutes (2) Gram-negative pneumonia: Status: Acute (3) Pulmonary abscess: Status: Acute (4) Acute and chronic respiratory failure: Status: Acute (5) COPD (chronic obstructive pulmonary disease): Status: Acute (6) Moderate protein-calorie malnutrition: Status: Acute (7) Acute kidney injury: Status: Acute Critical Care Time Critical Care Time (minutes): 60
[2021-01-04 11:44] LABS: Glucose, Whole Blood 141 mg/dL (60-115)
[2021-01-04] MEDS: propofoL 1,000 MG/100 ML VIAL 7.2 MG IVCONT (14:05)
--- NOTE | 2021-01-04 17:15 | PC.NURSE ---
Addendum entered by Cathleen Osullivan RN 01/04/21 19:32: 1845 - This RN at bedside due to vent alarming - zeynep red blood clogging ETT & HME - BLUEBERRY GROWER Gabriella & respiratory notified and at bedside. HR bradying down to PEA - code blue called & compressions started at 1850 - See code blue sheet for details. ROSS achieved at 1904. ETT changed over by BLUEBERRY GROWER - large blood clot removed from throat - OGT placed - CXR ordered. Spray Painting Machine Operator called for ? bedside bronch. Handoff given to Biju Singer Original Note: S/E Low grade temp 99.8-100.3, WBC 33.2 - MD aware; Continued on Zosyn q6 Sedated on Fentanyl & Propofol; Pupils 2mm sluggish; Weak cough & gag; Positive pain response ST/Junctional tachycardia HR 120-130's, occasional PVC's - MD aware Epinephrine gtt titrated off; Continuing to require Levophed R IJ TLC dressing changed LS rhonchi upper lobes Moderate amount of thick cream inline secretions ETT 7.5, 27cm @ lip; Vent settings unchanged PC 26, rate 22, peep 10, 50% Fio2 SC positive pseudomonas - MD aware - susceptibility pending Abdomen round, semi firm, absent bowel sounds - MD aware Aspirated 200cc tube feed from OGT; Last BM 01/02 - Lactulose 30g administered POC stable - no insulin coverage needed Urine output 30-50cc/hr Albumin 3.2 - Albumin 100cc q6hr x4 doses ordered No skin integrity concerns - Buttocks & bilat heels red but blanchable Airtap bed, prevlon pad, & heels boots in place; Patient bathed & barrier cream applied Family updated by this RN
[2021-01-04 17:54] LABS: Glucose, Whole Blood 132 mg/dL (60-115)
[2021-01-04] MEDS: fentaNYL citrate/NS 1,000 MCG/100 ML PLAST..BAG 5 MCG IVCONT (17:55)
[2021-01-04 19:58] LABS: VBG Base Excess -8.7 mmol/L; VBG HCO3 24 mmol/L (22-26); VBG pCO2 107 mmHg; VBG pH 6.95 (7.32-7.43); VBG pO2 64 mmHg
[2021-01-04 20:08] LABS: Hematocrit 25.8 % (42-52); Hemoglobin 7.6 g/dl (14.0-18.0); Mean Corpuscular HGB Conc 29.5 g/dl (31.0-36.0); Mean Corpuscular Hemoglobin 29.6 pg (27.0-33.0); Mean Corpuscular Volume 100.4 fL (80-98); Mean Platelet Volume 9.4 fL (9.4-12.4); NRBC Pct Auto 0.1 /100WBC (0.0-0.2); Red Blood Count 2.57 X10*6/uL (4.60-5.80); Red Cell Distribution Width 18.4 % (11.0-16.0); White Blood Count 28.3 X10*3/uL (4.8-10.8)
--- NOTE | 2021-01-04 20:20 | W.PM.CCHP ---
Procedures Bronchoscopy Consent for Procedure: Emergent-no informed consent obtained Procedure: Emergent bedside bronchoscopy performed after successful return of spontaneous circulation in a patient with proximal cardiac arrest secondary to hemoptysis with blood clot airway plugging. Bronchoscope advanced through the ET tube throughout tracheobronchial tree down to segmental bronchi level. Scant amount of thin bloody secretions noted and cleared in superior segments of left lower lobe and right lower lobe. Large amount of thick clotted secretions noted and cleared in the anterior segment of right upper lobe. Patient tolerated the procedure well.
[2021-01-04 20:33] LABS: VBG HCO3 26 mmol/L (22-26); VBG pCO2 112 mmHg; VBG pH 6.96 (7.32-7.43); VBG pO2 65 mmHg
[2021-01-04 20:33] LABS: Blood Urea Nitrogen 25 mg/dL (9-16); Estimated Glomerular Filt Rate 29; Glucose Random 120 mg/dL (60-115); Magnesium 2.8 mg/dL (1.6-2.6); Phosphorus 8.6 mg/dL (2.7-4.5)
[2021-01-04 20:38] LABS: Troponin-I High Sensitivity 21.4 ng/L (<3.5-35.0); Vancomycin Trough 11.7 mcg/mL (10.0-20.0)
[2021-01-04 20:43] LABS: Band Neutrophils Percent 28 % (3-5); Lymphocytes Percent Manual 7 % (20-40); Macrocytosis 1+ (5-14) /OIF; Monocytes Absolute Manual 1.1 X10*3/uL (0.0-1.2); Monocytes Percent Manual 4 % (2-11); Neutrophils Absolute Manual 25.2 X10*3/uL (2.2-7.9); Neutrophils Percent Manual 61 % (45-73); RBC Morphology NOTED
[2021-01-04 20:44] LABS: Hypochromasia 1+ (5-14) /OIF; Platelet Estimate NORMAL (NORMAL); Platelet Morphology Comment NORMAL
[2021-01-04 20:46] LABS: Anion Gap 23 (12-20); Carbon Dioxide 22 mmol/L (22-29); Chloride 100 mmol/L (96-108); Potassium 4.9 mmol/L (3.3-5.1); Sodium 140 mmol/L (135-145)
[2021-01-04] MEDS: Tranexamic Acid 1,000 MG in 0.9 % Sodium Chloride 50 ML 360 MG IV (21:34)
--- NOTE | 2021-01-04 21:35 | PM.EVENT ---
Event Note Date of Service: 01/04/21 Event Note: At approximately 1845 patient with copious amount of blood coming from the ET tube, it started to become hypoxic despite suctioning. He cardiac arrested at 6:50 p.m. See code sheet. ROSC was achieved at 7:04 p.m. ET tube was replaced. cardiac arrest likely from hemoptysis with blood clot airway plugging. Emergent bedside bronchoscopy performed by Dr. Lara. Healthcare proxy/ Daughter Marie informed of events. Goals of care readdress, decided to switch code status to DNR. Plan Continue vasopressors support start bicarb drip Repeat labs at midnight Critical care time: x90 minutes of critical care time
[2021-01-04] MEDS: propofoL 1,000 MG/100 ML VIAL 10.08 MG IVCONT (22:05)
[2021-01-04] MEDS: Sodium Bicarbonate 8.4% 50 MEQ/50 ML VIAL IVPUSH (22:06)
[2021-01-04] MEDS: EPINEPHrine 5 MG in Dextrose 5 % 250 ML 146.88 MG IVCONT (22:13)
--- NOTE | 2021-01-04 22:55 | W.PM.CCHP ---
Procedures Intubation Intubation Comments: After cardiac arrest ET tube replaced via bougie. Placement confirmed with chest x-ray Consent for Procedure: Emergent-no informed consent obtained Time out performed: No Sedative: propofol (Continues infusion) Laryngoscope: fiber optic video scope Assist device used: Bougie ET tube size: 7.5 ET tube uncuffed: No Tube secured depth (cm): 27 Tube secured location: lips Tube placement confirmation: visualized tube passing through cords, equal breath sounds bilaterally, no breath sounds over epigastrium and confirmation by capnometry Patient tolerated procedure: well Intubation complications: none
[2021-01-04] MEDS: Sodium Bicarbonate 8.4% 150 MEQ in Dextrose 5 % 850 ML 50 MEQ IV (22:56)
[2021-01-04 23:56] LABS: Glucose, Whole Blood 211 mg/dL (60-115)
[2021-01-05] VITALS (37 sets, daily range): BP systolic 70–99; BP diastolic 43–59; PULSE 128–143; RESP 30; TEMP 37.1–38.8; O2SAT 88–98
[2021-01-05 00:26] LABS: VBG HCO3 30 mmol/L (22-26); VBG pCO2 102 mmHg; VBG pH 7.08 (7.32-7.43); VBG pO2 59 mmHg
[2021-01-05 00:36] LABS: Hematocrit 26.7 % (42-52); Hemoglobin 7.9 g/dl (14.0-18.0); Mean Corpuscular HGB Conc 29.6 g/dl (31.0-36.0); Mean Corpuscular Hemoglobin 29.8 pg (27.0-33.0); Mean Corpuscular Volume 100.8 fL (80-98); Mean Platelet Volume 9.9 fL (9.4-12.4); NRBC Pct Auto 0.1 /100WBC (0.0-0.2); Platelet Count 330 X10*3/uL (160-400); Red Blood Count 2.65 X10*6/uL (4.60-5.80); Red Cell Distribution Width 18.5 % (11.0-16.0); White Blood Count 28.8 X10*3/uL (4.8-10.8)
[2021-01-05 00:55] LABS: Venous Blood Gas Refer to POC result
[2021-01-05 00:55] LABS: Venous Blood Gas Refer to POC result
--- NOTE | 2021-01-05 02:07 | PC.NURSE ---
pts condition remains extremely grave following cardiopulmonary arrest earlier in the night. dr barillas performed bedside bronchoscopy with large amounts of bloody secretions being removed from airway. blood was most significant in right lung and dr barillas has instructed us to keep the pt on his right side. inpatient pharmacist sue lugo particpated in bedside facetime between pts family and himself. families questions were answered and the gravity of the situation concisely communicated to granddaughter winston and her siblings. at this juncture winston hcp requests that her grandfather be made a DNR. pt is unresponsive and under the influences of propofol and fentanyl infusions for ventilatory management. pt is frail and cachetic in appearance. serial venous gases have shown significant resp acidosis. airway remains concerning with saline lavages and vigorous ett suctioning carried out for mucous plugging and resulting hypoxia. transorally intubated and maintained on pc ventilation with a rate of 30 insp pressure of 35 peep 5cm and fio2 100% breath sounds coarse with scattered i/e rhonchi throughout upper lobes. excessive hemoptysis as previously described. vasopressor tx is mandatory and multiple agents are being utilized epinephrine,neosynephrine,vasopressin,levophed. ecg displays st apical hr in the 130s bpm. abdomen distended/semifirm/silent. ngt inserted left nare and attached to low continuos wall suction. u/o has dramatically curtailed and is approximately 5 ml/hr.
[2021-01-05] MEDS: Albumin Human 25 % 100 ML 200 ML IV (03:09)
[2021-01-05 05:16] LABS: VBG Base Excess 0.3 mmol/L; VBG HCO3 32 mmol/L (22-26); VBG pCO2 113 mmHg; VBG pH 7.06 (7.32-7.43); VBG pO2 56 mmHg
[2021-01-05 05:19] LABS: Venous Blood Gas Refer to POC result
[2021-01-05 05:20] LABS: Hematocrit 24.6 % (42-52); Hemoglobin 7.2 g/dl (14.0-18.0); Mean Corpuscular HGB Conc 29.3 g/dl (31.0-36.0); Mean Corpuscular Hemoglobin 29.8 pg (27.0-33.0); Mean Corpuscular Volume 101.7 fL (80-98); Mean Platelet Volume 9.7 fL (9.4-12.4); NRBC Pct Auto 0.1 /100WBC (0.0-0.2); Platelet Count 284 X10*3/uL (160-400); Red Blood Count 2.42 X10*6/uL (4.60-5.80); Red Cell Distribution Width 18.3 % (11.0-16.0)
[2021-01-05] MEDS: EPINEPHrine 5 MG in Dextrose 5 % 250 ML 58.75 MG IVCONT ×2 (05:30→09:43)
[2021-01-05] MEDS: Chlorhexidine Gluc Oral Rinse 15 ML MOUTHWASH BUCCAL ×3 (05:33→22:27)
[2021-01-05] MEDS: Piperacillin Sodium/Tazobactam 3.375 GM in 0.9 % Sodium Chloride 50 ML IV ×3 (05:35→18:05)
[2021-01-05 05:37] LABS: WBC ABN SCTR FOR CBC 1
[2021-01-05 05:38] LABS: White Blood Count 35.4 X10*3/uL (4.8-10.8)
[2021-01-05 05:43] LABS: Alanine Aminotransferase 17 U/L (0-40); Albumin Level 3.8 g/dL (3.5-5.0); Alkaline Phosphatase 129 U/L (39-117); Anion Gap 15 (12-20); Aspartate Amino Transferase 34 U/L (5-37); Bilirubin Total 1.1 mg/dL (0.0-1.0); Blood Urea Nitrogen 29 mg/dL (9-16); Calcium 7.5 mg/dL (8.4-10.2); Carbon Dioxide 32 mmol/L (22-29); Chloride 98 mmol/L (96-108); Estimated Glomerular Filt Rate 25; Glucose Random 255 mg/dL (60-115); Magnesium 2.5 mg/dL (1.6-2.6); Phosphorus 7.5 mg/dL (2.7-4.5); Potassium 4.7 mmol/L (3.3-5.1); Sodium 140 mmol/L (135-145); Total Protein 5.5 g/dL (6.5-8.0)
[2021-01-05 05:44] LABS: Band Neutrophils Percent 38 % (3-5); Lymphocytes Absolute Manual 0.7 X10*3/uL (0.6-4.8); Lymphocytes Percent Manual 2 % (20-40); Metamyelocytes Absolute 0.4 X10*3/uL; Metamyelocytes Percent 1 %; Monocytes Absolute Manual 1.4 X10*3/uL (0.0-1.2); Monocytes Percent Manual 4 % (2-11); Neutrophils Absolute Manual 32.9 X10*3/uL (2.2-7.9); Neutrophils Percent Manual 55 % (45-73)
[2021-01-05 05:48] LABS: Basophilic Stippling 1+ (0-2) /OIF; Dohle Bodies PRESENT; Macrocytosis 1+ (5-14) /OIF; RBC Morphology NOTED; Toxic Vacuolation PRESENT
[2021-01-05 05:49] LABS: Hypochromasia 1+ (5-14) /OIF; Schistocytes 1+ (0-2) /OIF
[2021-01-05 05:51] LABS: Large Platelet PRESENT; Platelet Estimate NORMAL (NORMAL); Platelet Morphology Comment NORMAL
[2021-01-05] MEDS: Insulin Lispro 100 UNIT/ML 3 ML VIAL SUBCUT ×2 (05:56→18:03)
[2021-01-05] MEDS: Pantoprazole Sodium 40 MG/10 ML VIAL IVPUSH (06:02)
[2021-01-05] MEDS: propofoL 1,000 MG/100 ML VIAL 10.08 MG IVCONT (07:47)
[2021-01-05] MEDS: Albuterol/Iprat 2.5/0.5MG 3 ML AMPUL.NEB INHALE ×3 (07:53→20:37)
[2021-01-05] MEDS: 0.9 % Sodium Chloride Flush 3 ML SYRINGE IVFLUSH ×2 (09:45→17:02)
--- NOTE | 2021-01-05 10:28 | P.PNCC_ITS ---
Subjective Subjective Date of Service: 01/05/21 Interval History: ICU day 6 for acute on chronic hypoxic and hypercapnic respiratory failure, Pseudomonas pneumonic exacerbation of SYED bronchiectasis, pulmonary abscess, hemoptysis, and cardiopulmonary arrest. 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 Patient has been treated with broad-spectrum antibiotics, her also developed progressive hypoxemia requiring BiPAP support and was transferred to intensive care unit on 12/31/2020. Required intubation and ventilatory support on 01/02/2021 and bronchoscopy for mucous plugs clearance on 01/03/2021. Overnight at approximately 7:00 p.m. patient has developed hemoptysis (likely secondary to abscess erosion into bronchial or pulmonary circulation) resulting in endobronchial clot formation with airway plugging leading to cardiopulmonary arrest. Cardiopulmonary resuscitation started immediately and return of spontaneous circulation achieved after approximately 15 minutes. Emergent b edside bronchoscopy performed with clearance of residual clot in central airways with most likely source of bleeding being apical segment of right upper lobe. Patient daughter/healthcare proxy has been updated on clinical developments and overall poor prognosis and code status has been changed to DNR. Patient continued with impaired ventilation, likely secondary to residual alveolar hemorrhage, despite maximum ventilatory support resulting in profound respiratory acidosis and high vasopressor requirements. Critical Care Time (minutes): 60 Physical Exam Vital Signs: Vital Signs: Last Vital Signs Temp 100.0 F 01/05/21 10:00 Pulse 131 H 01/05/21 10:00 Resp 30 H 01/05/21 10:00 BP 79/47 L 01/05/21 10:00 Pulse Ox 97 01/05/21 10:00 Oxygen Flow Rate 15 12/28/20 02:33 Body Mass Index 18.1 Const: General: no acute distress and other (Sedated on the vent) Nutritional Appearance: cachectic Eyes: Sclerae: sclerae normal EOM: EOMs intact bilaterally Neck: Neck: Yes no lymphadenopathy, Yes trachea midline and Yes supple Resp: Auscultation: crackles (Diffuse bilateral) Cardio: Rate: tachycardic Rhythm: regular rhythm Heart sounds: no gallops, no murmurs and no rubs GI: Palpation (GI): Firmness to palpation present (GI) and nontender Ausc ultation: normal bowel sounds Extrem: General: No clubbing, No cyanosis and Yes pedal edema (Trace bilateral) Objective Data Labs CBC & Chem 7: 01/05/21 05:08 01/05/21 05:08 Labs: Laboratory Results - last 24 hr 01/04/21 01/04/21 01/04/21 11:40 17:50 19:51 WBC RBC Hgb Hct MCV MCH MCHC RDW Plt Count MPV Immature Gran % (Auto) Neut % (Auto) Lymph % (Auto) [place] % (Auto) Eos % (Auto) Baso % (Auto) Lymph # (Auto) [place] # (Auto) Eos # (Auto) Baso # (Auto) Abs Immat Gran (auto) Absolute Neuts (auto) Absolute Nucleated RBC Nucleated RBC % (auto) Neutrophils % (Manual) Band Neutrophils % Lymphocytes % (Manual) Monocytes % (Manual) Metamyelocytes % Abs Neuts (Manual) Lymphocytes # (Manual) Monocytes # (Manual) Metamyelocytes # Toxic Vacuolation Dohle Bodies Platelet Estimate Large Platelets Plt Morphology Comment RBC Morphology Hypochromasia Basophilic Stippling Macrocytosis Schistocytes VBG pH 6.95 L* VBG pCO2 107 VBG pO2 64 VBG HCO3 24 VBG O2 Saturation 79.0 VBG Base Excess -8.7 Sodium Potassium Chloride Carbon Dioxide Anion Gap BUN Creatinine Estim Creat Clear Calc Estimated GFR POC Glucose 141 H 132 H Random Glucose Calcium Phosphorus Magnesium Total Bilirubin AST ALT Alkaline Phosphatase Troponin I High Sens Total Protein Albumin Vancomycin Trough Blood Type Antibody Screen 01/04/21 01/04/21 01/04/21 19:54 19:54 19:54 WBC 28.3 H RBC 2.57 L Hgb 7.6 L Hct 25.8 L MCV 100.4 H MCH 29.6 MCHC 29.5 L RDW 18.4 H Plt Count TNP MPV 9.4 Immature Gran % (Auto) Cancelled Neut % (Auto) Cancelled Lymph % (Auto) Cancelled [place] % (Auto) Cancelled Eos % (Auto) Cancelled Baso % (Auto) Cancelled Lymph # (Auto) Cancelled [place] # (Auto) Cancelled Eos # (Auto) Cancelled Baso # (Auto) Cancelled Abs Immat Gran (auto) Cancelled Absolute Neuts (auto) Cancelled Absolute Nucleated RBC 0.020 H Nucleated RBC % (auto) 0.1 Neutrophils % (Manual) 61 Band Neutrophils % 28 H Lymphocytes % (Manual) 7 L Monocytes % (Manual) 4 Metamyelocytes % Abs Neuts (Manual) 25.2 H Lymphocytes # (Manual) 2.0 Monocytes # (Manual) 1.1 Metamyelocytes # Toxic Vacuolation Dohle Bodies Platelet Estimate NORMAL Large Platelets Plt Morphology Comment NORMAL RBC Morphology NOTED Hypochromasia 1+ (5-14) Basophilic Stippling Macrocytosis 1+ (5-14) Schistocytes VBG pH VBG pCO2 VBG pO2 VBG HCO3 VBG O2 Saturation VBG Base Excess Sodium 140 Potassium 4.9 Chloride 100 Carbon Dioxide 22 Anion Gap 23 H BUN 25 H Creatinine 2.24 H Estim Creat Clear Calc 22.0 Estimated GFR 29 POC Glucose Random Glucose 120 H Calcium 8.0 L Phosphorus 8.6 H Magnesium 2.8 H Total Bilirubin AST ALT Alkaline Phosphatase Troponin I High Sens Total Protein Albumin Vancomycin Trough 11.7 Blood Type Antibody Screen 01/04/21 01/04/21 01/04/21 19:54 20:26 23:52 WBC RBC Hgb Hct MCV MCH MCHC RDW Plt Count MPV Immature Gran % (Auto) Neut % (Auto) Lymph % (Auto) [place] % (Auto) Eos % (Auto) Baso % (Auto) Lymph # (Auto) [place] # (Auto) Eos # (Auto) Baso # (Auto) Abs Immat Gran (auto) Absolute Neuts (auto) Absolute Nucleated RBC Nucleated RBC % (auto) Neutrophils % (Manual) Band Neutrophils % Lymphocytes % (Manual) Monocytes % (Manual) Metamyelocytes % Abs Neuts (Manual) Lymphocytes # (Manual) Monocytes # (Manual) Metamyelocytes # Toxic Vacuolation Dohle Bodies Platelet Estimate Large Platelets Plt Morphology Comment RBC Morphology Hypochromasia Basophilic Stippling Macrocytosis Schistocytes VBG pH 6.96 L* VBG pCO2 112 VBG pO2 65 VBG HCO3 26 VBG O2 Saturation 80.0 VBG Base Excess -7.0 Sodium Potassium Chloride Carbon Dioxide Anion Gap BUN Creatinine Estim Creat Clear Calc Estimated GFR POC Glucose 211 H Random Glucose Calcium Phosphorus Magnesium Total Bilirubin AST ALT Alkaline Phosphatase Troponin I High Sens 21.4 D Total Protein Albumin Vancomycin Trough Blood Type Antibody Screen 01/05/21 01/05/2101/05/21 00:18 00:20 00:20 WBC 28.8 H RBC 2.65 L Hgb 7.9 L Hct 26.7 L MCV 100.8 H MCH 29.8 MCHC 29.6 L RDW 18.5 H Plt Count 330 D MPV 9.9 Immature Gran % (Auto) Neut % (Auto) Lymph % (Auto) [place] % (Auto) Eos % (Auto) Baso % (Auto) Lymph # (Auto) [place] # (Auto) Eos # (Auto) Baso # (Auto) Abs Immat Gran (auto) Absolute Neuts (auto) Absolute Nucleated RBC 0.030 H Nucleated RBC % (auto) 0.1 Neutrophils % (Manual) Band Neutrophils % Lymphocytes % (Manual) Monocytes % (Manual) Metamyelocytes % Abs Neuts (Manual) Lymphocytes # (Manual) Monocytes # (Manual) Metamyelocytes # Toxic Vacuolation Dohle Bodies Platelet Estimate Large Platelets Plt Morphology Comment RBC Morphology Hypochromasia Basophilic Stippling Macrocytosis Schistocytes VBG pH 7.08 L* VBG pCO2 102 VBG pO2 59 VBG HCO3 30 H VBG O2 Saturation 82.0 VBG Base Excess -1.0 Sodium Potassium Chloride Carbon Dioxide Anion Gap BUN Creatinine Estim Creat Clear Calc Estimated GFR POC Glucose Random Glucose Calcium Phosphorus Magnesium Total Bilirubin AST ALT Alkaline Phosphatase Troponin I High Sens Total Protein Albumin Vancomycin Trough Blood Type A Positive Antibody Screen NEGATIVE 01/05/21 01/05/21 01/05/21 05:08 05:08 05:10 WBC 35.4 H* RBC 2.42 L Hgb 7.2 L Hct 24.6 L MCV 101.7 H MCH 29.8 MCHC 29.3 L RDW 18.3 H Plt Count 284 MPV 9.7 Immature Gran % (Auto) Cancelled Neut % (Auto) Cancelled Lymph % (Auto) Cancelled [place] % (Auto) Cancelled Eos % (Auto) Cancelled Baso % (Auto) Cancelled Lymph # (Auto) Cancelled [place] # (Auto) Cancelled Eos # (Auto) Cancelled Baso # (Auto) Cancelled Abs Immat Gran (auto) Cancelled Absolute Neuts (auto) Cancelled Absolute Nucleated RBC 0.030 H Nucleated RBC % (auto) 0.1 Neutrophils % (Manual) 55 Band Neutrophils % 38 H Lymphocytes % (Manual) 2 L Monocytes % (Manual) 4 Metamyelocytes % 1 Abs Neuts (Manual) 32.9 H Lymphocytes # (Manual) 0.7 Monocytes # (Manual) 1.4 H Metamyelocytes # 0.4 Toxic Vacuolation PRESENT Dohle Bodies PRESENT Platelet Estimate NORMAL Large Platelets PRESENT Plt Morphology Comment NORMAL RBC Morphology NOTED Hypochromasia 1+ (5-14) Basophilic Stippling 1+ (0-2) Macrocytosis 1+ (5-14) Schistocytes 1+ (0-2) VBG pH 7.06 L* VBG pCO2 113 VBG pO2 56 VBG HCO3 32 H VBG O2 Saturation 82.0 VBG Base Excess 0.3 Sodium 140 Potassium 4.7 Chloride 98 Carbon Dioxide 32 H Anion Gap 15 BUN 29 H Creatinine 2.59 H Estim Creat Clear Calc 19.0 Estimated GFR 25 POC Glucose Random Glucose 255 H D Calcium 7.5 L D Phosphorus 7.5 H Magnesium 2.5 Total Bilirubin 1.1 H AST 34 D ALT 17 Alkaline Phosphatase 129 H Troponin I High Sens Total Protein 5.5 L Albumin 3.8 Vancomycin Trough Blood Type Antibody Screen Microbiology Microbiology Results: Microbiology 12/31/20 05:40 Blood - Venous Blood Culture - Final No growth after 5 days. 12/31/20 05:47 Blood - Venous Blood Culture - Final No growth after 5 days. 01/01/21 10:22 Sputum - Expectorated Gram Stain - Final 01/01/21 10:22 Sputum - Expectorated Sputum Culture - Preliminary Pseudomonas aeruginosa 12/29/20 12:37 Blood - Venous Blood Culture - Final No growth after 5 days. 12/29/20 12:37 Blood - Venous Blood Culture - Final No growth after 5 days. 12/28/20 03:18 Blood - Venous Blood Culture - Final No growth after 5 days. 12/29/20 00:16 Sputum - Expectorated Gram Stain - Final 12/29/20 00:16 Sputum - Expectorated Sputum Culture - Final 12/28/20 03:15 Blood - Venous Blood Culture - Final Coag negative Staphylococcus Progress Note: A&P Assessment and plan (1) Hemoptysis: Status: Acute Assessment and Plan: Assessment: 65-year-old gentleman with underlying chronic SYED, bronchiectasis with multiple pneumonic exacerbation, supplemental oxygen at 2 L dependent COPD, admitted with acute on chronic hypoxic respiratory failure secondary to Pseudomonas pneumonic exacerbation of underlying SYED bronchiectasis and COPD with pulmonary abscess formation, requiring ventilatory support, further complicated by hemoptysis with endobronchial clot resulting in cardiopulmonary arrest with successful return of spontaneous circulation Plan: Neuro: No acute issues. Cardiac: Pulseless electrical activity cardiopulmonary arrest with returned spontaneous circulation after approximately 15 minutes of CPR. Now on high- level of vasopressor support secondary to persistent respiratory acidosis. Pulmonary: Acute on chronic hypoxic and hypercapnic respiratory failure secondary to Pseudomonas pneumonia exacerbation of underlying SYED bronchiectasis with abscess formation, further complicated by likely abscess erosion into pulmonary or bronchial vasculature with hemoptysis, self-limited. Continue with ventilatory support. Patient has acute uncompensated respiratory acidosis secondary to poor alveolar ventilation, likely secondary to underlying alveolar hemorrhage. Renal: Acute kidney injury, likely secondary to cardiopulmonary arrest. Now oliguric. Continue to monitor renal indices and urine output. Endo: No acute issues. GI: No acute issues. ID: Pseudomonas pneumonia with pulmonary abscess. Continue on Zosyn and inhaled tobramycin. Heme/Onc: Hemoptysis likely secondary to abscess erosion into pulmonary or bronchial circulation. On emergent bedside bronchoscopy residual central airway clot cleared and no active bleeding noted. Pharmacologic DVT prophylaxis held. Psych: No acute issues. Miscellaneous: No acute issues. Overall very poor clinical prognosis discussed with patient's daughter/healthcare proxy and code status changed to do not resuscitate. Prophylaxis: Intermittent pneumatic compression, ppi Diet: Tube feeds Critical care time spent: 60 minutes (2) Shock: Status: Acute (3) Uncompensated respiratory acidosis: Status: Acute (4) Acute kidney injury: Status: Acute (5) SYED (mycobacterium avium-intracellulare): Status: Acute (6) Pseudomonas pneumonia: Status: Acute (7) Pulmonary abscess: Status: Acute (8) Bronchiectasis: Status: Acute (9) Acute and chronic respiratory failure: Status: Acute (10) COPD (chronic obstructive pulmonary disease): Status: Acute (11) Moderate protein-calorie malnutrition: Status: Acute (12) Cardiopulmonary arrest with successful resuscitation: Status: Acute Critical Care Time Critical Care Time (minutes): 60
[2021-01-05 11:34] LABS: Glucose, Whole Blood 131 mg/dL (60-115)
[2021-01-05] MEDS: fentaNYL citrate/NS 1,000 MCG/100 ML PLAST..BAG 5 MCG IVCONT (12:00)
[2021-01-05] MEDS: Phenylephrine HCL 100 MG in 0.9 % Sodium Chloride 250 ML 14.98 MG IVCONT (12:31)
[2021-01-05] MEDS: EPINEPHrine 5 MG in Dextrose 5 % 250 ML 117.5 MG IVCONT ×4 (14:00→20:23)
[2021-01-05] MEDS: propofoL 1,000 MG/100 ML VIAL 8.64 MG IVCONT (15:32)
[2021-01-05 18:03] LABS: Glucose, Whole Blood 178 mg/dL (60-115)
[2021-01-05] MEDS: Tobramycin Sulfate 80 MG/2 ML VIAL 300 MG INHALE (21:51)
--- NOTE | 2021-01-05 22:02 | PC.NURSE ---
Addendum entered by Golden Charles RN 01/05/21 23:20: Patient's CO2 this morning was 113 on VBGs, and 32 on chemistry panel; bicarb gtt had been turned off on nights in office services representative, discussed with MD and no new order at that time. Original Note: Assumed care at 0700. Patient was sedate on 35 of propofol, 50 of fentanyl; weak cough in the morning faded to no cough/no gag, pupils at 3 mm and sluggish; not moving any extremities; no reaction to pain; propofol was titrated down gradually over the course of the day to 25, primarily due to hypotension but also due to RASS -5. Patient at end of shift slightly reactive to tactile stimuli, blinked eyes, overbreathed vent. Patient continues on ventilator, ETT #7.5, 27 cm layne, PC settings, rate 30, Pi: 35; Peep 5; FiO2 100% (titrated down to 90% in evening); Te was 7-8.6 this morning, up to 9.6 this evening; Tv was 280 sade this morning, and 350 sade this evening. Minimal to no oral secretions. Inline secretions pink/blood tinged, small amount this morning, increased over the day to large amount this evening, occasionally charles colored. Patient was to be positioned with right side down over course of the day per MD, and this was maintained with position changes largely made with the air-tap system; this was done to support ventilation; but around 1800, patient appeared more stable, and he did tolerate turning and bathing without apparent changes in his vital signs. A new stage one was identified and photographed and covered with a foam. Patient requiring high dose vasopressors to reach MAP goal of >55, often with MAP of 52-53 today; levophed at 1.2, max 1.5 per MD; vasopressin at 0.04; ricky at 2.5; epi was initially at 0.4 and was titirated up to 1 over course of day. Patient with BP 70's/40's most of day with MAP at or slightly below 55. Patient with sinus tachycardia all day, no ectopy noted, HR 135 most of day, some variance 133-138 through day, now 140-143 this evening. Heart sounds distant. Pulses +2 radialis, +1 dorsalis pedis. Hands grossly edematous pitting 4+ edema bilaterally, right more than left, positioned with hands above elbows, restraints removed and hands lotioned, swelling seems subjectively improved; patient has been essentially anuric today: rangel flushed this morning and patent, bladder scanned at 0800 and 1200 for 0 ccs and 16 ccs respectively; urine outputs 0 through daytime, patient put out 15 ccs this evening. Family was in to visit today, also [employer] was used to allow visual contact 3-4 times, and patient's HCP is flying in from [place] to see patient tomorrow about noon. Many attempts to contact a [employer] information coder who speaks Hungarian were made and successful sacrament of the [employer] administered this evening by Fr. Haider Moise. [facility] has been contacted and patient was declined for all donation this afternoon reference number [id number]
[2021-01-05] MEDS: EPINEPHrine 5 MG in Dextrose 5 % 250 ML 146.88 MG IVCONT (22:24)
[2021-01-06] VITALS (23 sets, daily range): BP systolic 76–100; BP diastolic 47–62; PULSE 130–739; RESP 29–30; TEMP 37.2–38.8; O2SAT 89–98
[2021-01-06 00:13] LABS: Glucose, Whole Blood 191 mg/dL (60-115)
[2021-01-06] MEDS: Piperacillin Sodium/Tazobactam 3.375 GM in 0.9 % Sodium Chloride 50 ML IV ×3 (00:14→11:15)
[2021-01-06] MEDS: Insulin Lispro 100 UNIT/ML 3 ML VIAL SUBCUT (00:15)
[2021-01-06] MEDS: EPINEPHrine 5 MG in Dextrose 5 % 250 ML 88.13 MG IVCONT ×5 (00:31→12:37)
[2021-01-06] MEDS: Phenylephrine HCL 100 MG in 0.9 % Sodium Chloride 250 ML 22.46 MG IVCONT (03:11)
[2021-01-06 05:33] LABS: Hematocrit 26.2 % (42-52); Hemoglobin 7.6 g/dl (14.0-18.0); Mean Corpuscular Hemoglobin 28.9 pg (27.0-33.0); Mean Corpuscular Volume 99.6 fL (80-98); Mean Platelet Volume 10.4 fL (9.4-12.4); NRBC Pct Auto 0.2 /100WBC (0.0-0.2); Platelet Count 192 X10*3/uL (160-400); Red Blood Count 2.63 X10*6/uL (4.60-5.80); Red Cell Distribution Width 18.5 % (11.0-16.0)
[2021-01-06 05:36] LABS: VBG Base Excess -7.2 mmol/L; VBG HCO3 22 mmol/L (22-26); VBG pCO2 65 mmHg; VBG pH 7.13 (7.32-7.43); VBG pO2 44 mmHg
[2021-01-06] MEDS: Chlorhexidine Gluc Oral Rinse 15 ML MOUTHWASH BUCCAL (05:42)
[2021-01-06] MEDS: Pantoprazole Sodium 40 MG/10 ML VIAL IVPUSH (05:43)
[2021-01-06 05:44] LABS: Venous Blood Gas Refer to POC result
[2021-01-06 05:48] LABS: White Blood Count 37.2 X10*3/uL (4.8-10.8)
[2021-01-06 05:53] LABS: Glucose, Whole Blood 147 mg/dL (60-115)
[2021-01-06 05:54] LABS: Band Neutrophils Percent 26 % (3-5); Lymphocytes Absolute Manual 0.4 X10*3/uL (0.6-4.8); Lymphocytes Percent Manual 1 % (20-40); Monocytes Absolute Manual 1.5 X10*3/uL (0.0-1.2); Monocytes Percent Manual 4 % (2-11); Neutrophils Absolute Manual 35.3 X10*3/uL (2.2-7.9); Neutrophils Percent Manual 69 % (45-73)
[2021-01-06 05:57] LABS: Acanthocytes 1+ (0-2) /OIF; Dohle Bodies PRESENT; Macrocytosis 1+ (5-14) /OIF; RBC Morphology NOTED; Schistocytes 1+ (0-2) /OIF; Toxic Vacuolation PRESENT
[2021-01-06 06:02] LABS: Large Platelet PRESENT; Platelet Estimate NORMAL (NORMAL); Platelet Morphology Comment NORMAL; Toxic Granulation PRESENT
--- NOTE | 2021-01-06 06:06 | PC.NURSE ---
tmax 102.0, VSS with levophed, epinephrine, vasopressin, neosynephrine. Sedated with Fentanyl, propofol turned off per emar. Occasional grimace, weak cough. pupiles reactive, sluggish. Fio2 titrated to 80%, pt tolerating well. Blood streaked inline secretions noted. ST on tele. Repo q2hr as tolerated, airtap bed, prevalon mattress, bathed, barrier cream applied
[2021-01-06 06:10] LABS: Alanine Aminotransferase 25 U/L (0-40); Albumin Level 2.9 g/dL (3.5-5.0); Alkaline Phosphatase 160 U/L (39-117); Anion Gap 20 (12-20); Aspartate Amino Transferase 55 U/L (5-37); Bilirubin Total 1.5 mg/dL (0.0-1.0); Blood Urea Nitrogen 34 mg/dL (9-16); Carbon Dioxide 20 mmol/L (22-29); Chloride 98 mmol/L (96-108); Estimated Glomerular Filt Rate 17; Glucose Random 153 mg/dL (60-115); Magnesium 2.3 mg/dL (1.6-2.6); Phosphorus 6.3 mg/dL (2.7-4.5); Potassium 5.1 mmol/L (3.3-5.1); Sodium 133 mmol/L (135-145)
[2021-01-06] MEDS: Albumin Human 25 % 100 ML IV (06:25)
[2021-01-06] MEDS: Albuterol/Iprat 2.5/0.5MG 3 ML AMPUL.NEB INHALE (07:28)
[2021-01-06] MEDS: 0.9 % Sodium Chloride Flush 3 ML SYRINGE IVFLUSH (07:31)
[2021-01-06] MEDS: Tobramycin Sulfate 80 MG/2 ML VIAL 300 MG INHALE (07:40)
--- NOTE | 2021-01-06 07:56 | MHC.CM.PN ---
pt remains in the icu; intubated,sedated on [facility] ventilator. dc planning deferred to a future time. cm to cont. to follow.
--- NOTE | 2021-01-06 10:05 | MHC.CLN ---
F/U PT'S CONDITION REMAINS GRAVE PER MD PROPOFOL CURRENTLY OFF IF TF TO RE-START PROMOTE AT MAX GOAL RATE 50CC/HR TO PROVIDE 1200KCALS (27KCALS/KG), 75G PROTEIN (1.7G/KG), 1007CC TOTAL WATER FROM FORMULA START AT 20CC/HR AND INCREASE BY 10CC Q 4 HRS UNTIL MAX GOAL IS ACHIEVED NOTED NEW STAGE 1 R HIP-TF WILL PROMOTE WOUND HEALING MONITOR TOLERANCE, RESIDUALS AND LYTES
[2021-01-06 12:08] LABS: Glucose, Whole Blood 151 mg/dL (60-115)
[2021-01-06] MEDS: fentaNYL citrate/NS 1,000 MCG/100 ML PLAST..BAG 2.5 MCG IVCONT (13:13)
--- NOTE | 2021-01-06 13:28 | P.PNCC_ITS ---
Subjective Subjective Date of Service: 01/06/21 Interval History: Mr. Baeza was admitted to ICU on December 31 bec of hypotension, tachycardia, and respiratory failure. The patient is a 65-year-old man with PMHx of oxygen-dependent COPD, on 2-3L at home, chronic CO2 retention (recent serum bicarbs low 40s), bronchiectasis with multiple exacerbations, and underlying chronic mycobacterium avium pulmonary infection intolerant of eradication regimen. The patient was admitted to [facility] on December 28 with another exacerbation of his underlying bronchiectasis. Despite treatment with broad-spectrum antibiotics, he developed progressive hypoxemia requiring BiPAP support and was transferred to intensive care unit on December 31. He required intubation and ventilatory support on January 02 and bronchoscopy for mucous plugs clearance the next day. Sputum from January 01 grew pseudomonas. On January 04, the patient developed hemoptysis (likely secondary to abscess erosion into bronchial or pulmonary circulation), resulting in endobronchial clot formation with airway plugging leading to PEA cardiopulmonary arrest. Cardiopulmonary resuscitation w ACLS started immediately. ROSC was achieved after approximately 15 minutes. Emergent bedside bronchoscopy cleared residual clot in the central airways with the most likely source of bleeding found to be the apical segment of right upper lobe. The patient?s daughter/healthcare proxy (Marie Baeza, ) was updated. Code status was changed to DNR. The patient continued with impaired ventilation, likely secondary to residual alveolar hemorrhage, despite maximum ventilatory support, resulting in profound respiratory acidosis and high vasopressor requirements. This morning, the patient is deeply comatose on fentanyl 25ug; the propofol was turned off at midnite. The patient is unresponsive to all stimulation. No gag reflex, no corneals. Dolls? eyes is extremely sluggish, if reactive at all. Pupils are equal, 5-6 mm, and unreactive. He is overbreathing the ventilator. He?s on epi at 0.6ug, Levophed 1.5ug, vasopressin 0.04units, and neosynephrine 3ug. HR 140, SR. BP 93/59. Vent set at PC f30, 35/5, 1:1, 80%, with RR 30, Vt 370cc, Ve 11.3L, PiP 41, ETCO2 22, Sat 96%. Central venous gas this morning showed 7.13/65/-7. Temp 100.4?. 2cm JVD. Anicteric. Normal expir phase. RRR, tachy. No murmur or gallop appreciated. The abdomen is mildly distended and firmly doughy. No organomegaly or masses. Minimal edema U/O: < 10cc/hr. LABORATORY DATA: As below. Notably, WBC up slightly to 37, BUN and creatinine up to 34/3.5, bicarb down to 20, potassium above 5.1, phosphorus down to 6.3, total bili up to 1.5. ECHOCARDIOGRAM done at the bedside by me: Image quality: Adequate. Findings: 1. At least moderate LVH. 2. LV cavity is small with normal LV systolic function, EF at least 60%. 3. The right ventricle is blown, at least twice the size of the LV, if not 3 times, with poor systolic function. The septum is bowed into the LV. (Echo report from October 28 indicates normal RV.) 4. The atria were not adequately assessed. 5. Aortic valve not assessed. 6. Mitral valve not assessed. 7. Tricuspid valve morphologically normal, with 1+ TR by color-flow. Continues wave Doppler measured 3.0 m/sec. Gradient 36 mm. 8. IVC is dilated at 2.2 cm with no inspiratory collapse. CVP estimate 15 mm. RVSP estimate 51 mm. IMPRESSION: 1. Underlying bronchiectasis, oxygen dependent COPD, and chronic mycobacterium avium pulmonary infection, with acute Pseudomonas exacerbation. 2. Chronic hypercarbic respiratory failure. 3. Acute hypoxemic and hypercarbic respiratory failure. Secondary to above. 4. Cardiogenic +/- septic shock. Acute right heart failure of unclear etiology (possibly 2? to cardiac arrest on 01/04) no doubt playing a prominent role. The low ETCO2 clearly indicates a low CO state (i.e. cardiogenic shock), which correlates with the high vasopressor/inotrope need. 5. Acute renal failure. Likely ATN 2? above. But can?t r/o a compartment syndrome. 6. Neuro: Coma of undetermined etiology. Brainstem reflexes largely absent. 7. ID: Pulmonary abscess. On Zosyn and inhaled tobramycin. 8. Heme: Pharmacologic DVT prophylaxis held bec of pulmonary bleeding episode. Overall extremely grave prognosis. MOSF, with no visible avenue to survival, regardless of the cause. I have discussed this with his family at length at the bedside. We?re awaiting the arrival of his daughter Marie from [place] by plane this morning. ADDENDUM at 1415: Marie arrived, saw her father, and then we talked with the whole family at length in the waiting room. I indicated that there was no road to survival and that in this kind of thing the most appropriate situation was to back away from aggressive/invasive critical care management and to let him be in piece, and let nature take its course. I made sure that they understood that nobody had any decision making role in what the ultimate outcome was going to be. Marie asked me to turned the drugs off. Before we could do that, the patient's blood pressure shot up to 200 and his heart rate dropped. He stopped over-breathing the ventilator. (Herniated?). We turned the vasopressors off and gave him additional fentanyl. He became progressively bradycardic and then asystolic at 13:59. The family was at the bedside. Critical care time (including full chart rev, hosp course summary, d/w Dr. Lara, and mult d/w family): 2:15+ hrs. Critical Care Time (minutes): 136 Physical Exam Vital Signs: Vital Signs: Last Vital Signs Temp 100.9 F H 01/06/21 13:00 Pulse 143 H 01/06/21 13:00 Resp 30 H 01/06/21 13:00 BP 93/56 L 01/06/21 13:00 Pulse Ox 96 01/06/21 13:00 Oxygen Flow Rate 15 12/28/20 02:33 Body Mass Index 18.1 Objective Data Labs CBC & Chem 7: 01/06/21 05:24 01/06/21 05:24 Labs: Laboratory Results - last 24 hr 01/05/21 01/06/21 01/06/21 17:58 00:09 05:24 WBC 37.2 H* RBC 2.63 L Hgb 7.6 L Hct 26.2 L MCV 99.6 H MCH 28.9 MCHC 29.0 L RDW 18.5 H Plt Count 192 D MPV 10.4 Immature Gran % (Auto) Cancelled Neut % (Auto) Cancelled Lymph % (Auto) Cancelled [place] % (Auto) Cancelled Eos % (Auto) Cancelled Baso % (Auto) Cancelled Lymph # (Auto) Cancelled [place] # (Auto) Cancelled Eos # (Auto) Cancelled Baso # (Auto) Cancelled Abs Immat Gran (auto) Cancelled Absolute Neuts (auto) Cancelled Absolute Nucleated RBC 0.060 H Nucleated RBC % (auto) 0.2 Neutrophils % (Manual) 69 Band Neutrophils % 26 H Lymphocytes % (Manual) 1 L Monocytes % (Manual) 4 Abs Neuts (Manual) 35.3 H Lymphocytes # (Manual) 0.4 L Monocytes # (Manual) 1.5 H Toxic Granulation PRESENT Toxic Vacuolation PRESENT Dohle Bodies PRESENT Platelet Estimate NORMAL Large Platelets PRESENT Plt Morphology Comment NORMAL RBC Morphology NOTED Macrocytosis 1+ (5-14) Acanthocytes (Spur) 1+ (0-2) Schistocytes 1+ (0-2) VBG pH VBG pCO2 VBG pO2 VBG HCO3 VBG O2 Saturation VBG Base Excess Sodium Potassium Chloride Carbon Dioxide Anion Gap BUN Creatinine Estim Creat Clear Calc Estimated GFR POC Glucose 178 H 191 H Random Glucose Calcium Phosphorus Magnesium Total Bilirubin AST ALT Alkaline Phosphatase Total Protein Albumin 01/06/21 01/06/21 01/06/21 05:24 05:29 05:46 WBC RBC Hgb Hct MCV MCH MCHC RDW Plt Count MPV Immature Gran % (Auto) Neut % (Auto) Lymph % (Auto) [place] % (Auto) Eos % (Auto) Baso % (Auto) Lymph # (Auto) [place] # (Auto) Eos # (Auto) Baso # (Auto) Abs Immat Gran (auto) Absolute Neuts (auto) Absolute Nucleated RBC Nucleated RBC % (auto) Neutrophils % (Manual) Band Neutrophils % Lymphocytes % (Manual) Monocytes % (Manual) Abs Neuts (Manual) Lymphocytes # (Manual) Monocytes # (Manual) Toxic Granulation Toxic Vacuolation Dohle Bodies Platelet Estimate Large Platelets Plt Morphology Comment RBC Morphology Macrocytosis Acanthocytes (Spur) Schistocytes VBG pH 7.13 L* VBG pCO2 65 VBG pO2 44 VBG HCO3 22 VBG O2 Saturation 76.0 VBG Base Excess -7.2 Sodium 133 L Potassium 5.1 Chloride 98 Carbon Dioxide 20 L Anion Gap 20 BUN 34 H Creatinine 3.52 H Estim Creat Clear Calc 14.0 Estimated GFR 17 POC Glucose 147 H Random Glucose 153 H D Calcium 7.0 L D Phosphorus 6.3 H Magnesium 2.3 Total Bilirubin 1.5 H AST 55 H ALT 25 Alkaline Phosphatase 160 H D Total Protein 5.0 L Albumin 2.9 L D 01/06/21 12:04 WBC RBC Hgb Hct MCV MCH MCHC RDW Plt Count MPV Immature Gran % (Auto) Neut % (Auto) Lymph % (Auto) [place] % (Auto) Eos % (Auto) Baso % (Auto) Lymph # (Auto) [place] # (Auto) Eos # (Auto) Baso # (Auto) Abs Immat Gran (auto) Absolute Neuts (auto) Absolute Nucleated RBC Nucleated RBC % (auto) Neutrophils % (Manual) Band Neutrophils % Lymphocytes % (Manual) Monocytes % (Manual) Abs Neuts (Manual) Lymphocytes # (Manual) Monocytes # (Manual) Toxic Granulation Toxic Vacuolation Dohle Bodies Platelet Estimate Large Platelets Plt Morphology Comment RBC Morphology Macrocytosis Acanthocytes (Spur) Schistocytes VBG pH VBG pCO2 VBG pO2 VBG HCO3 VBG O2 Saturation VBG Base Excess Sodium Potassium Chloride Carbon Dioxide Anion Gap BUN Creatinine Estim Creat Clear Calc Estimated GFR POC Glucose 151 H Random Glucose Calcium Phosphorus Magnesium Total Bilirubin AST ALT Alkaline Phosphatase Total Protein Albumin Microbiology Microbiology Results: Microbiology 12/31/20 05:40 Blood - Venous Blood Culture - Final No growth after 5 days. 12/31/20 05:47 Blood - Venous Blood Culture - Final No growth after 5 days. 01/01/21 10:22 Sputum - Expectorated Gram Stain - Final 01/01/21 10:22 Sputum - Expectorated Sputum Culture - Preliminary Pseudomonas aeruginosa 12/29/20 12:37 Blood - Venous Blood Culture - Final No growth after 5 days. 12/29/20 12:37 Blood - Venous Blood Culture - Final No growth after 5 days. 12/28/20 03:18 Blood - Venous Blood Culture - Final No growth after 5 days. 12/29/20 00:16 Sputum - Expectorated Gram Stain - Final 12/29/20 00:16 Sputum - Expectorated Sputum Culture - Final 12/28/20 03:15 Blood - Venous Blood Culture - Final Coag negative Staphylococcus Critical Care Time Critical Care Time (minutes): 150
[2021-01-06] MEDS: Esmolol HCl/NaCl Iso 2,500 MG/250 ML IV.SOLN IVCONT (13:30)
[2021-01-06] MEDS: fentaNYL citrate/PF 100 MCG/2 ML VIAL 200 MCG IVPUSH (13:55)
--- NOTE | 2021-01-06 15:21 | P.DS_ITS ---
DS: Providers Provider Date of Service: 01/06/21 Date of admission: 12/28/20 06:48 Primary care physician: Unknown Physician Consults: 12/28/20 15:01 Consult to Pulmonology Routine Consulting Provider: Guillermo Sosa Reason for consultation: Recurrent admission w persistent dyspnea for eval and rc . 12/29/20 14:42 Consult to Psychiatry Routine Consulting Provider: Rod Schneider Reason for consultation: Fear of , recurrent anxiety attacks DS: Diagnosis Discharge Diagnosis (1) Hemoptysis: Status: Acute (2) Shock: Status: Acute (3) Uncompensated respiratory acidosis: Status: Acute (4) Acute kidney injury: Status: Acute (5) SYED (mycobacterium avium-intracellulare): Status: Acute (6) Pseudomonas pneumonia: Status: Acute (7) Pulmonary abscess: Status: Acute (8) Bronchiectasis: Status: Acute (9) Acute and chronic respiratory failure: Status: Acute (10) COPD (chronic obstructive pulmonary disease): Status: Acute (11) Moderate protein-calorie malnutrition: Status: Acute (12) Cardiopulmonary arrest with successful resuscitation: Status: Acute DS: Medications Discharge Medications Home Medications: Home Medications Medication Instructions Recorded Confirmed aspirin 81 mg PO DAILY 06/01/20 12/28/20 atorvastatin 20 mg PO DAILY 06/01/20 12/28/20 montelukast 10 mg PO BEDTIME 06/01/20 12/28/20 ferrous sulfate 325 mg PO DAILY 08/05/20 12/28/20 fluticasone propionate 2 spray INTRANASAL DAILY PRN 08/05/20 12/28/20 ketoconazole 1 appl TOPICAL 2XW 08/05/20 12/28/20 multivitamin 1 tab PO DAILY 08/05/20 12/28/20 sennosides [senna] 1 - 2 tab PO BID PRN 08/05/20 12/28/20 Incruse Ellipta 1 inh INHALATION DAILY 09/03/20 12/28/20 Breo Ellipta 1 inh INHALATION DAILY 10/10/20 12/28/20 gabapentin 300 mg PO TID 10/10/20 12/28/20 valsartan 20 mg PO DAILY 10/10/20 12/28/20 docusate sodium 100 mg PO BID 11/29/20 12/31/20 albuterol sulfate 2 puff PO Q4-6H PRN 12/24/20 12/28/20 ipratropium-albuterol 1 amp INHALATION QID 12/24/20 12/28/20 Previous Rx's Medication Instructions Recorded insulin lispro [Humalog U-100 1 sliding scale dose SUBCUT 12/05/20 Insulin] QIDACHS #10 ml omeprazole 20 mg PO DAILY #30 cap 12/05/20 levofloxacin 250 mg tablet See Rx Instructions PO DAILY #30 12/17/20 tab dextromethorphan-guaifenesin 10 ml PO Q4-8H PRN #118 ml 12/27/20 [Robitussin Cough-Chest Von DM] prednisone See Taper PO DAILY #30 tab 12/27/20 DS: Summary Hospital Course Hospital Course: NOTE DISCHARGE DIAGNOSES: 1. Underlying bronchiectasis 2. Oxygen dependent COPD 3. Cronic mycobacterium avium pulmonary infection 4. Acute Pseudomonas pneumonia. 5. Chronic hypercarbic respiratory failure. 6. Acute hypoxemic and hypercarbic respiratory failure. 7. Pulmonary abscess. 8. Massive hemoptysis 9. Cardiac arrest 10. Cardiogenic +/- septic shock. 11. Acute right heart failure. 12. Acute renal failure. 13. Coma. Mr. Baeza was a 65-year-old man with PMHx of oxygen-dependent COPD, on 2-3L at home, chronic CO2 retention (recent serum bicarbs low 40s), bronchiectasis with multiple exacerbations, and underlying chronic mycobacterium avium pulmonary infection intolerant of eradication regimen. The patient was admitted to [facility] on December 28, 2020 with another exacerbation of his underlying bronchiectasis. Despite treatment with broad-spectrum antibiotics, he developed progressive hypoxemia requiring BiPAP support and was transferred to intensive care unit on December 31. He required intubation and ventilatory support on January 02 and bronchoscopy for mucous plugs clearance the next day. Sputum from January 01 grew pseudomonas. On January 04, the patient developed hemoptysis (likely secondary to abscess erosion into bronchial or pulmonary circulation), resulting in endobronchial clot formation with airway plugging leading to PEA cardiopulmonary arrest. Cardiopulmonary resuscitation w ACLS started immediately. ROSC was achieved after approximately 15 minutes. Emergent bedside bronchoscopy cleared residual clot in the central airways with the most likely source of bleeding found to be the apical segment of right upper lobe. The patient?s daughter/healthcare proxy (Marie Baeza, ) was updated. Code status was changed to DNR. The patient continued with impaired ventilation, likely secondary to residual alveolar hemorrhage, despite maximum ventilatory support, resulting in profound respiratory acidosis and high vasopressor requirements. On January 06, the patient was deeply comatose on fentanyl 25ug alone. The patient was unresponsive to all stimulation. No gag reflex, no corneals. Dolls? eyes were extremely sluggish, if reactive at all. Pupils were equal, 5-6 mm, and unreactive. He was overbreathing the ventilator. He was on epi at 0.6ug, Levophed 1.5ug, vasopressin 0.04units, and neosynephrine 3ug. HR 140, SR. BP 93/59. Vent set at PC f30, 35/5, 1:1, 80%, with RR 30, Vt 370cc, Ve 11.3L, PiP 41, ETCO2 22, Sat 96%. Central venous showed 7.13/65/-7. Temp 100.4?. 2cm JVD. Anicteric. Normal expir phase. RRR, tachy. No murmur or gallop appreciated. The abdomen was mildly distended and firmly doughy. No organomegaly or masses. Minimal edema U/O: < 10cc/hr. LABORATORY DATA: Notably, WBC up slightly to 37, BUN and creatinine up to 34/3.5, bicarb down to 20, potassium above 5.1, phosphorus down to 6.3, total bili up to 1.5. ECHOCARDIOGRAM done at the bedside: Findings: 1. At least moderate LVH. 2. LV cavity was small with normal LV systolic function, EF at least 60%. 3. The right ventricle was blown, at least twice the size of the LV, if not 3 times, with poor systolic function. The septum was bowed into the LV. (Echo report from October 28 indicated normal RV.) 4. The atria were not adequately assessed. 5. Aortic valve not assessed. 6. Mitral valve not assessed. 7. Tricuspid valve morphologically normal, with 1+ TR by color-flow. Continues wave Doppler measured 3.0 m/sec. Gradient 36 mm. 8. IVC was dilated at 2.2 cm with no inspiratory collapse. CVP estimate 15 mm. RVSP estimate 51 mm. IMPRESSION: 1. Underlying bronchiectasis, oxygen dependent COPD, and chronic mycobacterium avium pulmonary infection, with acute Pseudomonas exacerbation. 2. Chronic hypercarbic respiratory failure. 3. Acute hypoxemic and hypercarbic respiratory failure. Secondary to above. 4. Cardiogenic +/- septic shock. Acute right heart failure of unclear etiology (possibly 2? to cardiac arrest on 01/04) no doubt playing a prominent role. The low ETCO2 clearly indicates a low CO state (i.e. cardiogenic shock), which gail elates with the high vasopressor/inotrope need. 5. Acute renal failure. Likely ATN 2? above. But can?t r/o a compartment syndrome. 6. Neuro: Coma of undetermined etiology. Brainstem reflexes largely absent. 7. ID: Pulmonary abscess. On Zosyn and inhaled tobramycin. 8. Heme: Pharmacologic DVT prophylaxis held bec of pulmonary bleeding episode. Overall prognosis was grave. MOSF, with no visible avenue to survival, regardless of the cause. I discussed the situation with his family at length. Before we could take further action, the patient's blood pressure spiked up to 200 and his heart rate dropped. He stopped over-breathing the ventilator. (? herniation.) We turned the vasopressors off. The patient became progressively bradycardic and then asystolic at 13:59. The family was at the bedside. Time Spent with Patient Time attestation: Total time spent providing and/or coordinating discharge services: Discharge coordination time: Less than 30 minutes Quality: Stroke Does the patient have a stroke diagnosis?: No Physical Exam Vital Signs: Vital Signs: Last Vital Signs Temp 100.9 F H 01/06/21 13:00 Pulse 144 H 01/06/21 13:30 Resp 30 H 01/06/21 13:00 BP 93/56 L 01/06/21 13:00 Pulse Ox 96 01/06/21 13:00 Oxygen Flow Rate 15 12/28/20 02:33 Body Mass Index 18.1 DS: Data Data Completed and Pending Completed studies during hospitalization [Text1]: Procedures Assistance with Respiratory Ventilation, Less than 24 Consecutive Hours, Continuous Positive Airway Pressure (12/24/20) Detoxification Services for Substance Abuse Treatment (06/01/20) Insertion of Infusion Device into Superior Vena Cava, Percutaneous Approach (06/01/20) Introduction of Vasopressor into Peripheral Vein, Percutaneous Approach (06/01/20) Transfusion of Convalescent Plasma (Nonautologous) into Peripheral Vein, Percutaneous Approach, [employer] (09/03/20) Transfusion of Nonautologous Red Blood Cells into Peripheral Vein, Percutaneous Approach (11/29/20) Ultrasonography of Superior Vena Cava, Guidance (06/01/20) Labs on day of discharge: Laboratory Results - last 24 hr 01/05/21 01/06/21 01/06/21 17:58 00:09 05:24 WBC 37.2 H* RBC 2.63 L Hgb 7.6 L Hct 26.2 L MCV 99.6 H MCH 28.9 MCHC 29.0 L RDW 18.5 H Plt Count 192 D MPV 10.4 Immature Gran % (Auto) Cancelled Neut % (Auto) Cancelled Lymph % (Auto) Cancelled [place] % (Auto) Cancelled Eos % (Auto) Cancelled Baso % (Auto) Cancelled Lymph # (Auto) Cancelled [place] # (Auto) Cancelled Eos # (Auto) Cancelled Baso # (Auto) Cancelled Abs Immat Gran (auto) Cancelled Absolute Neuts (auto) Cancelled Absolute Nucleated RBC 0.060 H Nucleated RBC % (auto) 0.2 Neutrophils % (Manual) 69 Band Neutrophils % 26 H Lymphocytes % (Manual) 1 L Monocytes % (Manual) 4 Abs Neuts (Manual) 35.3 H Lymphocytes # (Manual) 0.4 L Monocytes # (Manual) 1.5 H Toxic Granulation PRESENT Toxic Vacuolation PRESENT Dohle Bodies PRESENT Platelet Estimate NORMAL Large Platelets PRESENT Plt Morphology Comment NORMAL RBC Morphology NOTED Macrocytosis 1+ (5-14) Acanthocytes (Spur) 1+ (0-2) Schistocytes 1+ (0-2) VBG pH VBG pCO2 VBG pO2 VBG HCO3 VBG O2 Saturation VBG Base Excess Sodium Potassium Chloride Carbon Dioxide Anion Gap BUN Creatinine Estim Creat Clear Calc Estimated GFR POC Glucose 178 H 191 H Random Glucose Calcium Phosphorus Magnesium Total Bilirubin AST ALT Alkaline Phosphatase Total Protein Albumin 01/06/21 01/06/21 01/06/21 05:24 05:29 05:46 WBC RBC Hgb Hct MCV MCH MCHC RDW Plt Count MPV Immature Gran % (Auto) Neut % (Auto) Lymph % (Auto) [place] % (Auto) Eos % (Auto) Baso % (Auto) Lymph # (Auto) [place] # (Auto) Eos # (Auto) Baso # (Auto) Abs Immat Gran (auto) Absolute Neuts (auto) Absolute Nucleated RBC Nucleated RBC % (auto) Neutrophils % (Manual) Band Neutrophils % Lymphocytes % (Manual) Monocytes % (Manual) Abs Neuts (Manual) Lymphocytes # (Manual) Monocytes # (Manual) Toxic Granulation Toxic Vacuolation Dohle Bodies Platelet Estimate Large Platelets Plt Morphology Comment RBC Morphology Macrocytosis Acanthocytes (Spur) Schistocytes VBG pH 7.13 L* VBG pCO2 65 VBG pO2 44 VBG HCO3 22 VBG O2 Saturation 76.0 VBG Base Excess -7.2 Sodium 133 L Potassium 5.1 Chloride 98 Carbon Dioxide 20 L Anion Gap 20 BUN 34 H Creatinine 3.52 H Estim Creat Clear Calc 14.0 Estimated GFR 17 POC Glucose 147 H Random Glucose 153 H D Calcium 7.0 L D Phosphorus 6.3 H Magnesium 2.3 Total Bilirubin 1.5 H AST 55 H ALT 25 Alkaline Phosphatase 160 H D Total Protein 5.0 L Albumin 2.9 L D 01/06/21 12:04 WBC RBC Hgb Hct MCV MCH MCHC RDW Plt Count MPV Immature Gran % (Auto) Neut % (Auto) Lymph % (Auto) [place] % (Auto) Eos % (Auto) Baso % (Auto) Lymph # (Auto) [place] # (Auto) Eos # (Auto) Baso # (Auto) Abs Immat Gran (auto) Absolute Neuts (auto) Absolute Nucleated RBC Nucleated RBC % (auto) Neutrophils % (Manual) Band Neutrophils % Lymphocytes % (Manual) Monocytes % (Manual) Abs Neuts (Manual) Lymphocytes # (Manual) Monocytes # (Manual) Toxic Granulation Toxic Vacuolation Dohle Bodies Platelet Estimate Large Platelets Plt Morphology Comment RBC Morphology Macrocytosis Acanthocytes (Spur) Schistocytes VBG pH VBG pCO2 VBG pO2 VBG HCO3 VBG O2 Saturation VBG Base Excess Sodium Potassium Chloride Carbon Dioxide Anion Gap BUN Creatinine Estim Creat Clear Calc Estimated GFR POC Glucose 151 H Random Glucose Calcium Phosphorus Magnesium Total Bilirubin AST ALT Alkaline Phosphatase Total Protein Albumin Preliminary micro results at discharge 01/01/21 10:22 Sputum Culture - Preliminary Sputum - Expectorated Pseudomonas aeruginosa Discharge Plan Discharge Date/Time: 01/06/21 13:59 Patient Disposition: Referrals: Physician,Unknown [Primary Care Provider] - 1 Week Discharge Medications: No Action Incruse Ellipta 62.5 mcg/actuation Blister With Device 1 inh INHALATION DAILY RF: 0 valsartan 40 mg Tablet 20 mg PO DAILY RF: 0 Breo Ellipta 200-25 mcg/dose Blister With Device 1 inh INHALATION DAILY RF: 0 gabapentin 300 mg Capsule 300 mg PO TID RF: 0 ipratropium-albuterol 0.5 mg-3 mg(2.5 mg base)/3 mL solution for nebulization 1 amp inhalation QID RF: 0 albuterol sulfate 90 mcg/actuation HFA aerosol inhaler 2 puff PO Q4-6H PRN (Reason: wheezing) RF: 0 Robitussin Cough-Chest Von DM 5-100 mg/5 mL liquid 10 ml PO Q4-8H PRN (Reason: cough) Qty: 118 RF: 0 prednisone 10 mg tablet See Taper mg PO DAILY Qty: 30 RF: 0 atorvastatin 20 mg tablet 20 mg PO DAILY RF: 0 aspirin 81 mg tablet,delayed release (DR/EC) 81 mg PO DAILY RF: 0 montelukast 10 mg tablet 10 mg PO BEDTIME RF: 0 multivitamin Tablet 1 tab PO DAILY RF: 0 sennosides [senna] 8.6 mg tablet 1 - 2 tab PO BID PRN (Reason: Constipation) RF: 0 ketoconazole 2 % shampoo 1 appl topical 2XW RF: 0 ferrous sulfate 325 mg (65 mg iron) tablet 325 mg PO DAILY RF: 0 fluticasone propionate 50 mcg/actuation spray,suspension 2 spray intranasal DAILY PRN (Reason: Nasal Congestion) RF: 0 docusate sodium 100 mg capsule 100 mg PO BID RF: 0 omeprazole 20 mg Capsule,Delayed Release(Dr/Ec) 20 mg PO DAILY Qty: 30 RF: 0 insulin lispro [Humalog U-100 Insulin] 100 unit/mL Solution 1 sliding scale dose subcut QIDACHS Qty: 10 RF: 0 levofloxacin 250 mg tablet See Rx Instructions PO DAILY Qty: 30 RF: 0 Discharge Orders: Discharge Order (Routine); Ordered 01/06/21 Ordered By: Jovany Hernandes
== END 2021-01-06 15:43 | disposition expired | DRG 871 ==
LOC: HO.ED 05:12 → HO.EDOVER 06:53 → HO.IMC 07:17 → HO.ICU 12-31 08:23
PROVIDERS: Internal Medicine; Internal Medicine Pulmonary Disease; Registered Nurse Community Health; Student in an Organized Health Care Education/Training Program; Admitting Provider Internal Medicine; Emergency Provider Student in an Organized Health Care Education/Training Program; Visit Provider Anesthesiology
DX: A41.9 Sepsis, unspecified organism (principal); J96.21 Acute and chronic respiratory failure with hypoxia; J85.1 Abscess of lung with pneumonia; J15.1 Pneumonia due to Pseudomonas; J96.22 Acute and chronic respiratory failure with hypercapnia; R65.21 Severe sepsis with septic shock; J47.1 Bronchiectasis with (acute) exacerbation; E44.0 Moderate protein-calorie malnutrition; Z68.1 Body mass index [BMI] 19.9 or less, adult; J47.0 Bronchiectasis with acute lower respiratory infection; A31.0 Pulmonary mycobacterial infection; R04.2 Hemoptysis; T17.590A Other foreign object in bronchus causing asphyxiation, initial encounter; N17.9 Acute kidney failure, unspecified; E78.5 Hyperlipidemia, unspecified; E11.9 Type 2 diabetes mellitus without complications; Z20.822 Contact with and (suspected) exposure to COVID-19; F41.0 Panic disorder [episodic paroxysmal anxiety]; F06.4 Anxiety disorder due to known physiological condition; Z99.81 Dependence on supplemental oxygen; Z86.16 Personal history of COVID-19; Z87.891 Personal history of nicotine dependence; I46.9 Cardiac arrest, cause unspecified; X58.XXXA Exposure to other specified factors, initial encounter; Y93.9 Activity, unspecified; R57.0 Cardiogenic shock; I50.811 Acute right heart failure; I11.0 Hypertensive heart disease with heart failure; Y92.239 Unspecified place in hospital as the place of occurrence of the external cause; Y99.9 Unspecified external cause status; Z88.5 Allergy status to narcotic agent; Z79.4 Long term (current) use of insulin; Z79.51 Long term (current) use of inhaled steroids; Z79.82 Long term (current) use of aspirin; Z79.899 Other long term (current) drug therapy; Z66 Do not resuscitate
CPT/HCPCS: 36415; 36600; 71045; 71250; 74018; 80048; 80053; 80202; 81003; 82040; 82947; 83605; 83735; 83880; 84100; 84145; 84484; 85007; 85025; 85027; 86850; 86900; 86901; 87040; 87070; 87077; 87147; 87205; 87635; 93005; 94002; 94003; 94640; 94660; 94664; 94799; 96365; 96366; 96368; 96375; 99285; C1758; J0171; J1885; J1956; J2060; J2370; J2543; J2920; J2930; J3010; J3260; J3370; J3475; P9047